=== PATIENT | female | born 1990 | race Hispanic/Latino ===

== ENCOUNTER 2018-09-20 14:27 | Inpatient (IN) | payer MEDICAID ==
[2018-09-20] MEDS ORDERED: NACL 0.9% 1000 ML 1,000 ML IV ONE ×2 (15:18)
[2018-09-20] MEDS ORDERED: HumuLIN R IV ONE ×2 (15:18→18:45)
[2018-09-20] MEDS ORDERED: ZOFRAN IV ONE (15:35)
--- NOTE | 2018-09-20 15:39 | Emergency Department Report ---
ED Chest Pain HPI - General Chief Complaint: Chest Pain Stated Complaint: CHEST PAIN Time Seen by Provider: 09/20/18 15:21 Source: patient, EMS Mode of arrival: Stretcher Limitations: No Limitations - History of Present Illness Initial Comments: 27-year-old female with a past medical history of insulin-dependent diabetes, Yates's disease, stage II kidney disease, and hypothyroidism presents to the Hospital complaining of chest pain started while walking today, uncontrolled glucose level, and vomiting. Patient complains of sharp pain to the left upper chest that shoots across to the right side and down her right arm. Mild shortness of breath reported. Pain rated 6/10 in intensity without aggravating or alleviating factors. Patient denies calf tenderness or leg edema. Patient states that for the past week her glucose has been uncontrolled. She takes Humalog R sliding-scale as needed but on average takes it only twice a day. She does not take any long-acting insulin. For the past 2-43 days she's had nausea, vomiting, and diarrhea with decreased by mouth tolerance. No fever or dysuria. History of DKA reported. Patient recently moved to the [facility] and has her first scheduled PMD appointment for September 29. Severity scale (0 -10): 6 - Related Data Allergies Allergy/AdvReac Type Severity Reaction Status Date / Time Penicillins Allergy Angioedema Verified 09/20/18 15:10 vortioxetine Allergy Unknown Verified 09/20/18 15:10 [From Trintellix] ziprasidone [From Geodon] Allergy Angioedema Verified 09/20/18 15:10 vancomycin AdvReac Itching Verified 09/20/18 15:10 Heart Score - HEART Score History: Slightly suspicious EKG: Non-specific Age: < 45 Risk factors: 1-2 risk factors Troponin: < normal limit HEART Score: 2 ED Review of Systems ROS: Stated complaint: CHEST PAIN Other details as noted in HPI Comment: All other systems reviewed and negative ED Past Medical Hx - Past Medical History Hx Diabetes: Yes Hx Renal Disease: Yes (stage II kidney disease) Additional medical history: hypotension, hypothyroidism, Yates's disease - Surgical History Past Surgical History?: Yes Hx Cholecystectomy: Yes Hx Appendectomy: Yes Additional Surgical History: 4 - Social History Smoking Status: Never Smoker Substance Use Type: None ED Physical Exam - General Limitations: No Limitations - Other Other exam information: General: No limitations, patient is alert in no acute distress Head exam: Atraumatic, normocephalic Eyes exam: Normal appearance, pupils equal reactive to light, extraocular movements intact ENT: Moist mucous membrane, normal oropharynx Neck exam: Normal inspection, full range of motion, no meningismus nontender Respiratory exam: Clear to auscultation bilateral, no wheezes, rales, crackles, port to chest wall Cardiovascular: Normal rate and rhythm, normal heart sounds, chest wall nontender Abdomen: Soft, nondistended, and nontender, with normal bowel sounds, no rebound, or guarding Extremity: Full range of motion normal inspection no deformity, no calf tenderness or edema Back: Normal Inspection, full range of motion, no tenderness Neurologic: Alert, oriented x3, cranial nerves intact, no motor or sensory deficit Psychiatric: normal affect, normal mood Skin: Warm, dry, intact, ED Course Vital Signs 09/20/18 09/20/18 09/20/18 15:00 15:10 15:45 Temperature 98.3 F Pulse Rate 89 93 H 86 Respiratory 19 16 13 Rate Blood Pressure 99/67 97/64 98/62 O2 Sat by Pulse 95 97 98 Oximetry 09/20/18 09/20/18 09/20/18 16:00 16:47 17:00 Temperature Pulse Rate 86 82 79 Respiratory 19 17 16 Rate Blood Pressure 103/72 110/69 98/67 O2 Sat by Pulse 94 Oximetry 09/20/18 09/20/18 09/20/18 17:15 17:30 17:33 Temperature Pulse Rate 80 84 Respiratory 12 12 16 Rate Blood Pressure 103/72 102/70 O2 Sat by Pulse Oximetry 09/20/18 09/20/18 09/20/18 17:45 18:15 18:30 Temperature Pulse Rate 87 84 87 Respiratory 14 17 12 Rate Blood Pressure 98/67 91/59 108/82 O2 Sat by Pulse Oximetry 09/20/18 09/20/18 09/20/18 18:45 19:00 19:15 Temperature Pulse Rate 88 87 87 Respiratory 11 L 11 L 12 Rate Blood Pressure 91/59 110/78 110/78 O2 Sat by Pulse 100 100 100 Oximetry 09/20/18 19:30 Temperature Pulse Rate 88 Respiratory 14 Rate Blood Pressure 105/77 O2 Sat by Pulse Oximetry DAVID score - David Score Age > 65: (0) No Aspirin use within the Past 7 Days: (0) No 3 or more CAD Risk Factors: (0) No 2 or more Angina events in past 24 hrs: (0) No Known CAD with more than 50% Stenosis: (0) No Elevated Cardiac Markers: (0) No ST Deviation Greater than 0.5mm: (0) No DAVID Score: 0 ED Medical Decision Making - Lab Data Result diagrams: 09/20/18 16:44 09/20/18 16:44 Lab Results 09/20/18 09/20/18 09/20/18 Range/Units 14:58 15:16 16:44 WBC 6.5 (4.5-11.0) K/mm3 RBC 3.23 L (3.65-5.03) M/mm3 Hgb 9.0 L (10.1-14.3) gm/dl Hct 27.8 L (30.3-42.9) % MCV 86 (79-97) fl MCH 28 (28-32) pg MCHC 32 (30-34) % RDW 17.3 H (13.2-15.2) % Plt Count 279 (140-440) K/mm3 Lymph % (Auto) 38.2 H (13.4-35.0) % [place] % (Auto) 5.1 (0.0-7.3) % Eos % (Auto) 2.5 (0.0-4.3) % Baso % (Auto) 0.9 (0.0-1.8) % Lymph # 2.5 (1.2-5.4) K/mm3 [place] # 0.3 (0.0-0.8) K/mm3 Eos # 0.2 (0.0-0.4) K/mm3 Baso # 0.1 (0.0-0.1) K/mm3 Seg Neutrophils % 53.3 (40.0-70.0) % Seg Neutrophils # 3.5 (1.8-7.7) K/mm3 PT (12.2-14.9) Sec. INR (0.87-1.13) VBG pH (7.320-7.420) Sodium (137-145) mmol/L Potassium (3.6-5.0) mmol/L Chloride (98-107) mmol/L Carbon Dioxide (22-30) mmol/L Anion Gap mmol/L BUN (7-17) mg/dL Creatinine (0.7-1.2) mg/dL Estimated GFR ml/min BUN/Creatinine Ratio % Glucose (65-100) mg/dL POC Glucose 476 H (70-105) Calcium (8.4-10.2) mg/dL Total Bilirubin (0.1-1.2) mg/dL AST (5-40) units/L ALT (7-56) units/L Alkaline Phosphatase (35-129) units/L Troponin T (0.00-0.029) ng/mL Total Protein (6.3-8.2) g/dL Albumin (3.9-5) g/dL Albumin/Globulin Ratio % TSH (0.270-4.200) mlU/mL Free T4 (0.76-1.46) ng/dL HCG, Qual (Negative) Urine Color Yellow (Yellow) Urine Turbidity Slightly-cloudy (Clear) Urine pH 5.0 (5.0-7.0) Ur Specific [place] 1.022 (1.003-1.030) Urine Protein <15 mg/dl (Negative) mg/dL Urine Glucose (UA) >=500 (Negative) mg/dL Urine Ketones Tr (Negative) mg/dL Urine Blood Neg (Negative) Urine Nitrite Neg (Negative) Urine Bilirubin Neg (Negative) Urine Urobilinogen < 2.0 (<2.0) mg/dL Ur Leukocyte Esterase Lg (Negative) Urine WBC (Auto) 32.0 H (0.0-6.0) /HPF Urine RBC (Auto) 5.0 (0.0-6.0) /HPF U Epithel Cells (Auto) 4.0 (0-13.0) /HPF Urine Bacteria (Auto) 1+ (Negative) /HPF Urine Mucus Few /HPF 09/20/18 09/20/18 09/20/18 Range/Units 16:44 16:44 16:44 WBC (4.5-11.0) K/mm3 RBC (3.65-5.03) M/mm3 Hgb (10.1-14.3) gm/dl Hct (30.3-42.9) % MCV (79-97) fl MCH (28-32) pg MCHC (30-34) % RDW (13.2-15.2) % Plt Count (140-440) K/mm3 Lymph % (Auto) (13.4-35.0) % [place] % (Auto) (0.0-7.3) % Eos % (Auto) (0.0-4.3) % Baso % (Auto) (0.0-1.8) % Lymph # (1.2-5.4) K/mm3 [place] # (0.0-0.8) K/mm3 Eos # (0.0-0.4) K/mm3 Baso # (0.0-0.1) K/mm3 Seg Neutrophils % (40.0-70.0) % Seg Neutrophils # (1.8-7.7) K/mm3 PT 12.3 (12.2-14.9) Sec. INR 0.87 (0.87-1.13) VBG pH (7.320-7.420) Sodium 126 L (137-145) mmol/L Potassium 4.7 (3.6-5.0) mmol/L Chloride 92.1 L (98-107) mmol/L Carbon Dioxide 22 (22-30) mmol/L Anion Gap 17 mmol/L BUN 21 H (7-17) mg/dL Creatinine 1.2 (0.7-1.2) mg/dL Estimated GFR > 60 ml/min BUN/Creatinine Ratio 18 % Glucose 633 H* (65-100) mg/dL POC Glucose (70-105) Calcium 7.8 L (8.4-10.2) mg/dL Total Bilirubin 0.30 (0.1-1.2) mg/dL AST 95 H (5-40) units/L ALT 75 H (7-56) units/L Alkaline Phosphatase 165 H (35-129) units/L Troponin T < 0.010 (0.00-0.029) ng/mL Total Protein 5.8 L (6.3-8.2) g/dL Albumin 3.4 L (3.9-5) g/dL Albumin/Globulin Ratio 1.4 % TSH (0.270-4.200) mlU/mL Free T4 (0.76-1.46) ng/dL HCG, Qual Negative (Negative) Urine Color (Yellow) Urine Turbidity (Clear) Urine pH (5.0-7.0) Ur Specific [place] (1.003-1.030) Urine Protein (Negative) mg/dL Urine Glucose (UA) (Negative) mg/dL Urine Ketones (Negative) mg/dL Urine Blood (Negative) Urine Nitrite (Negative) Urine Bilirubin (Negative) Urine Urobilinogen (<2.0) mg/dL Ur Leukocyte Esterase (Negative) Urine WBC (Auto) (0.0-6.0) /HPF Urine RBC (Auto) (0.0-6.0) /HPF U Epithel Cells (Auto) (0-13.0) /HPF Urine Bacteria (Auto) (Negative) /HPF Urine Mucus /HPF 09/20/18 09/20/18 09/20/18 Range/Units 16:44 16:44 18:18 WBC (4.5-11.0) K/mm3 RBC (3.65-5.03) M/mm3 Hgb (10.1-14.3) gm/dl Hct (30.3-42.9) % MCV (79-97) fl MCH (28-32) pg MCHC (30-34) % RDW (13.2-15.2) % Plt Count (140-440) K/mm3 Lymph % (Auto) (13.4-35.0) % [place] % (Auto) (0.0-7.3) % Eos % (Auto) (0.0-4.3) % Baso % (Auto) (0.0-1.8) % Lymph # (1.2-5.4) K/mm3 [place] # (0.0-0.8) K/mm3 Eos # (0.0-0.4) K/mm3 Baso # (0.0-0.1) K/mm3 Seg Neutrophils % (40.0-70.0) % Seg Neutrophils # (1.8-7.7) K/mm3 PT (12.2-14.9) Sec. INR (0.87-1.13) VBG pH 7.316 L (7.320-7.420) Sodium (137-145) mmol/L Potassium (3.6-5.0) mmol/L Chloride (98-107) mmol/L Carbon Dioxide (22-30) mmol/L Anion Gap mmol/L BUN (7-17) mg/dL Creatinine (0.7-1.2) mg/dL Estimated GFR ml/min BUN/Creatinine Ratio % Glucose (65-100) mg/dL POC Glucose (70-105) Calcium (8.4-10.2) mg/dL Total Bilirubin (0.1-1.2) mg/dL AST (5-40) units/L ALT (7-56) units/L Alkaline Phosphatase (35-129) units/L Troponin T < 0.010 (0.00-0.029) ng/mL Total Protein (6.3-8.2) g/dL Albumin (3.9-5) g/dL Albumin/Globulin Ratio % TSH 3.140 (0.270-4.200) mlU/mL Free T4 0.66 L (0.76-1.46) ng/dL HCG, Qual (Negative) Urine Color (Yellow) Urine Turbidity (Clear) Urine pH (5.0-7.0) Ur Specific [place] (1.003-1.030) Urine Protein (Negative) mg/dL Urine Glucose (UA) (Negative) mg/dL Urine Ketones (Negative) mg/dL Urine Blood (Negative) Urine Nitrite (Negative) Urine Bilirubin (Negative) Urine Urobilinogen (<2.0) mg/dL Ur Leukocyte Esterase (Negative) Urine WBC (Auto) (0.0-6.0) /HPF Urine RBC (Auto) (0.0-6.0) /HPF U Epithel Cells (Auto) (0-13.0) /HPF Urine Bacteria (Auto) (Negative) /HPF Urine Mucus /HPF 09/20/18 Range/Units 18:45 WBC (4.5-11.0) K/mm3 RBC (3.65-5.03) M/mm3 Hgb (10.1-14.3) gm/dl Hct (30.3-42.9) % MCV (79-97) fl MCH (28-32) pg MCHC (30-34) % RDW (13.2-15.2) % Plt Count (140-440) K/mm3 Lymph % (Auto) (13.4-35.0) % [place] % (Auto) (0.0-7.3) % Eos % (Auto) (0.0-4.3) % Baso % (Auto) (0.0-1.8) % Lymph # (1.2-5.4) K/mm3 [place] # (0.0-0.8) K/mm3 Eos # (0.0-0.4) K/mm3 Baso # (0.0-0.1) K/mm3 Seg Neutrophils % (40.0-70.0) % Seg Neutrophils # (1.8-7.7) K/mm3 PT (12.2-14.9) Sec. INR (0.87-1.13) VBG pH (7.320-7.420) Sodium (137-145) mmol/L Potassium (3.6-5.0) mmol/L Chloride (98-107) mmol/L Carbon Dioxide (22-30) mmol/L Anion Gap mmol/L BUN (7-17) mg/dL Creatinine (0.7-1.2) mg/dL Estimated GFR ml/min BUN/Creatinine Ratio % Glucose (65-100) mg/dL POC Glucose 430 H (70-105) Calcium (8.4-10.2) mg/dL Total Bilirubin (0.1-1.2) mg/dL AST (5-40) units/L ALT (7-56) units/L Alkaline Phosphatase (35-129) units/L Troponin T (0.00-0.029) ng/mL Total Protein (6.3-8.2) g/dL Albumin (3.9-5) g/dL Albumin/Globulin Ratio % TSH (0.270-4.200) mlU/mL Free T4 (0.76-1.46) ng/dL HCG, Qual (Negative) Urine Color (Yellow) Urine Turbidity (Clear) Urine pH (5.0-7.0) Ur Specific [place] (1.003-1.030) Urine Protein (Negative) mg/dL Urine Glucose (UA) (Negative) mg/dL Urine Ketones (Negative) mg/dL Urine Blood (Negative) Urine Nitrite (Negative) Urine Bilirubin (Negative) Urine Urobilinogen (<2.0) mg/dL Ur Leukocyte Esterase (Negative) Urine WBC (Auto) (0.0-6.0) /HPF Urine RBC (Auto) (0.0-6.0) /HPF U Epithel Cells (Auto) (0-13.0) /HPF Urine Bacteria (Auto) (Negative) /HPF Urine Mucus /HPF - EKG Data -: EKG Interpreted by Me EKG shows normal: sinus rhythm, axis (qrs 27), QRS complexes (qrsd 84), ST-T waves (no stemi/t inv) Rate: normal (86) - Radiology Data Radiology results: image reviewed - Medical Decision Making Patient presented to the hospital with uncontrolled diabetes, chest pain, and findings of UTI. Reports history of Yates's disease and therefore will be admitted to the hospital for further treatment. She was treated with insulin, normal saline, [place], and Levaquin. Hospitalist informed for admission - Differential Diagnosis DKA, hyperglycemia, SD, unstable angina, PE, infection Critical Care Time: No Critical care attestation.: If time is entered above; I have spent that time in minutes in the direct care of this critically ill patient, excluding procedure time. ED Disposition Clinical Impression: Chest pain, Insulin dependent diabetes mellitus, Hyperglycemia, UTI (urinary tract infection), Anemia Disposition: OP ADMIT IP TO THIS HOSP Is pt being admited?: Yes Condition: Stable Time of Disposition: 19:27 (DR Rg/hosp)
[2018-09-20] MEDS ORDERED: NORCO 5/325 PO ONE (16:54)
[2018-09-20 16:55] LABS: Basophils # (Auto) 0.1 K/mm3 (0.0-0.1); Basophils % (Auto) 0.9 % (0.0-1.8); Eosinophils # (Auto) 0.2 K/mm3 (0.0-0.4); Eosinophils % (Auto) 2.5 % (0.0-4.3); Hematocrit 27.8 % (30.3-42.9); Lymphocytes # (Auto) 2.5 K/mm3 (1.2-5.4); Lymphocytes % (Auto) 38.2 % (13.4-35.0); Mean Corpuscular HGB Conc 32 % (30-34); Mean Corpuscular Volume 86 fl (79-97); Monocytes # (Auto) 0.3 K/mm3 (0.0-0.8); Monocytes % (Auto) 5.1 % (0.0-7.3); Platelet Count 279 K/mm3 (140-440); Red Blood Count 3.23 M/mm3 (3.65-5.03); Red Cell Distribution Width 17.3 % (13.2-15.2)
[2018-09-20 17:05] LABS: INR 0.87 (0.87-1.13)
[2018-09-20 17:09] LABS: Bacteria,Urine 1+ /HPF (Negative); Bilirubin,Urine NEG (Negative); Blood,Urine NEG (Negative); Color,Urine Yellow (Yellow); Mucus,Urine FEW /HPF; Protein,Urine <15 mg/dL mg/dL (Negative); Urobilinogen,Urine < 2.0 mg/dL (<2.0)
[2018-09-20 17:20] LABS: Alanine Aminotransferase 75 units/L (7-56); Albumin 3.4 g/dL (3.9-5); BUN/Creatinine Ratio 18; Blood Urea Nitrogen 21 mg/dL (7-17); Calcium 7.8 mg/dL (8.4-10.2); Hemolysis Index 3
[2018-09-20 17:27] LABS: Free T4 (Free Thyroxine) 0.66 ng/dL (0.76-1.46)
[2018-09-20] MEDS ORDERED: HumuLIN R ONE (17:30)
[2018-09-20] MEDS ORDERED: LEVAQUIN 750MG/150ML 750 MG/150 ML BAG IV ONE (17:47)
--- NOTE | 2018-09-20 19:22 | History and Physical Report ---
History of Present Illness Chief complaint: My chest hurts, and i just dont feel that good History of present illness: 27 YO Female with DM, Addisons Disease, CKD currently resolved, Hypothyroidism, presents to ED for evaluation. PT states that she experienced sudden onset of pain in her chest while walking today. Pt states that pain was 6/10, worsened with exertion, relieved with rest, sharp, crushing in nature, radiates across her chest and into her right arm, associated with shortness of breath , nausea, multiple episodes of vomiting and diaphoresis. Pt acknowledges decreased exercise tolerance. EMS notified and upon arrival the patient was found to be in distress. Pt transported to [facility]. Pt seen and evaluated in ED and found to have Angina, UTI, Uncontrolled DM, and Anemia of Chronic disease. Pt admitted to telemetry and initiated on chest pain protocol as well as IV antibiotic therapy. Cardiology consulted in ED. No previous admissions at [facility]. No medication available to reconcile at time of admission. Past History Past Medical History: diabetes, hypothyroidism, other (Addisons disease) Social history: single. denies: smoking, alcohol abuse, prescription drug abuse Family history: diabetes, hypertension Medications and Allergies Allergies Allergy/AdvReac Type Severity Reaction Status Date / Time Penicillins Allergy Angioedema Verified 09/20/18 15:10 vortioxetine Allergy Unknown Verified 09/20/18 15:10 [From Trintellix] ziprasidone [From Geodon] Allergy Angioedema Verified 09/20/18 15:10 vancomycin AdvReac Itching Verified 09/20/18 15:10 Review of Systems Constitutional: no weight loss, no weight gain, no fever, no chills Ears, nose, mouth and throat: no ear pain, no ear discharge, no tinnitis, no decreased hearing, no nose pain, no nasal congestion Breasts: no change in shape, no swelling, no mass Cardiovascular: chest pain, shortness of breath, dyspnea on exertion, decreased exercise tolerance, no palpitations, no rapid/irregular heart beat, no syncope, no lightheadedness Respiratory: no cough, no cough with sputum, no excessive sputum, no hemoptysis, no shortness of breath Gastrointestinal: nausea, vomiting Genitourinary Female: no dysmenorrhea, no pelvic pain, no flank pain, no menorrhagia, no urinary frequency Rectal: no pain, no incontinence, no bleeding Musculoskeletal: no neck stiffness, no neck pain, no shooting arm pain, no arm numbness/tingling, no low back pain Integumentary: no rash, no pruritis, no redness, no sores, no wounds Neurological: no paralysis, no weakness, no parathesias, no numbness, no tingling Psychiatric: no anxiety, no memory loss, no change in sleep habits, no sleep disturbances, no insomnia Endocrine: no cold intolerance, no heat intolerance, no excessive thirst, no polydipsia, no polyuria Hematologic/Lymphatic: no easy bruising, no easy bleeding, no lymphadenopathy, no lymphedema Allergic/Immunologic: no urticaria, no allergic rhinitis, no persistent infect ions, no anaphylaxis, no angioedema Exam - Constitutional Vitals: Temp Pulse Resp BP Pulse Ox 98.3 F 88 11 L 91/59 100 09/20/18 15:10 09/20/18 18:45 09/20/18 18:45 09/20/18 18:45 09/20/18 18:45 General appearance: Present: mild distress - EENT Eyes: Present: PERRL ENT: hearing intact, clear oral mucosa - Neck Neck: Present: supple, normal ROM - Respiratory Respiratory effort: normal Respiratory: bilateral: CTA - Cardiovascular Heart Sounds: Present: S1 & S2. Absent: rub, click - Extremities Extremities: pulses symmetrical, No edema Peripheral Pulses: within normal limits - Abdominal General gastrointestinal: Present: soft, non-tender, non-distended, normal bowel sounds Female genitourinary: Present: normal - Integumentary Integumentary: Present: clear, warm, dry - Musculoskeletal Musculoskeletal: gait normal, strength equal bilaterally - Psychiatric Psychiatric: appropriate mood/affect, intact judgment & insight - Neurologic Neurologic: CNII-XII intact, moves all extremities Results - Labs CBC & Chem 7: 09/20/18 16:44 09/20/18 16:44 Labs: Abnormal lab results 09/20/18 09/20/18 09/20/18 Range/Units 14:58 15:16 16:44 RBC 3.23 L (3.65-5.03) M/mm3 Hgb 9.0 L (10.1-14.3) gm/dl Hct 27.8 L (30.3-42.9) % RDW 17.3 H (13.2-15.2) % Lymph % (Auto) 38.2 H (13.4-35.0) % VBG pH (7.320-7.420) Sodium (137-145) mmol/L Chloride (98-107) mmol/L BUN (7-17) mg/dL Glucose (65-100) mg/dL POC Glucose 476 H (70-105) Calcium (8.4-10.2) mg/dL AST (5-40) units/L ALT (7-56) units/L Alkaline Phosphatase (35-129) units/L Total Protein (6.3-8.2) g/dL Albumin (3.9-5) g/dL Free T4 (0.76-1.46) ng/dL Urine WBC (Auto) 32.0 H (0.0-6.0) /HPF 09/20/18 09/20/18 09/20/18 Range/Units 16:44 16:44 16:44 RBC (3.65-5.03) M/mm3 Hgb (10.1-14.3) gm/dl Hct (30.3-42.9) % RDW (13.2-15.2) % Lymph % (Auto) (13.4-35.0) % VBG pH 7.316 L (7.320-7.420) Sodium 126 L (137-145) mmol/L Chloride 92.1 L (98-107) mmol/L BUN 21 H (7-17) mg/dL Glucose 633 H* (65-100) mg/dL POC Glucose (70-105) Calcium 7.8 L (8.4-10.2) mg/dL AST 95 H (5-40) units/L ALT 75 H (7-56) units/L Alkaline Phosphatase 165 H (35-129) units/L Total Protein 5.8 L (6.3-8.2) g/dL Albumin 3.4 L (3.9-5) g/dL Free T4 0.66 L (0.76-1.46) ng/dL Urine WBC (Auto) (0.0-6.0) /HPF 09/20/18 Range/Units 18:45 RBC (3.65-5.03) M/mm3 Hgb (10.1-14.3) gm/dl Hct (30.3-42.9) % RDW (13.2-15.2) % Lymph % (Auto) (13.4-35.0) % VBG pH (7.320-7.420) Sodium (137-145) mmol/L Chloride (98-107) mmol/L BUN (7-17) mg/dL Glucose (65-100) mg/dL POC Glucose 430 H (70-105) Calcium (8.4-10.2) mg/dL AST (5-40) units/L ALT (7-56) units/L Alkaline Phosphatase (35-129) units/L Total Protein (6.3-8.2) g/dL Albumin (3.9-5) g/dL Free T4 (0.76-1.46) ng/dL Urine WBC (Auto) (0.0-6.0) /HPF Assessment and Plan - Patient Problems (1) Angina at rest Current Visit: Yes Status: Acute Plan to address problem: Admit to telemetry, Serial cardiac enzymes, ekg, telemetry, stress test, echo, cardiology consulted in ED, bnp, morphine, supplemental oxygen, nitro, aspirin, (2) UTI (urinary tract infection) Current Visit: Yes Status: Acute Qualifiers: Encounter type: initial encounter Plan to address problem: IV antibiotic therapy, Urinalysis, CBC, CMP, (3) Hyponatremia syndrome Current Visit: Yes Status: Acute Plan to address problem: IVF resuscitation, repeat bmp in am, seizure precautions, aspiration precautions, neuro checks. (4) Diabetes Current Visit: Yes Status: Acute Plan to address problem: ADA diet, insulin, accu check, IVF resuscitation therapy. (5) Anemia, chronic disease Current Visit: Yes Status: Acute Plan to address problem: supportive care, repeat cbc in am, No transfusion at this time. Hgb is 9. (6) Dante's disease Current Visit: Yes Status: Acute Plan to address problem: Supportive care, Outpatient endocrinology F/U care. (7) Hypocalcemia syndrome Current Visit: Yes Status: Acute Plan to address problem: Serum calcium level, Ionized calcium level ordered and in pending at time of admission. (8) Elevated LFTs Current Visit: Yes Status: Acute Plan to address problem: UDS, Blood alcolol level, hepatitis panel. (9) DVT prophylaxis Current Visit: Yes Status: Acute Plan to address problem: SCD to BLE while in bed, prophylactic lovenox
[2018-09-20] MEDS ORDERED: SODIUM CHLORIDE FLUSH SYRINGE 10 ML IV PRN ×2 (19:29)
[2018-09-20] MEDS ORDERED: NITROSTAT SL PRN (19:29)
[2018-09-20] MEDS ORDERED: TYLENOL PO PRN (19:29)
[2018-09-20] MEDS ORDERED: MORPHINE IV PRN (19:29)
[2018-09-20] MEDS ORDERED: PROVENTIL IH PRN (19:29)
[2018-09-20] MEDS ORDERED: BABY ASPIRIN PO STA (19:30)
[2018-09-20 20:05] LABS: Chol/HDL Ratio 5.65 %
--- NOTE | 2018-09-20 20:17 | XRay Report ---
PROCEDURE: XR CHEST 1V AP HISTORY: cp FINDINGS: Single frontal view of the chest was acquired. The heart is normal in size. The lungs appea r clear. The pleura and mediastinum are within normal limits. IMPRESSION: No active disease in the chest This document is electronically signed by Ramiro Hernandez MD., September 20 2018 08:16:03 PM ET
[2018-09-20] MEDS ORDERED: NACL 0.9% 1000 ML 1,000 ML IV SCH (21:00)
[2018-09-20] MEDS: SODIUM CHLORIDE FLUSH SYRINGE 10 ML IV SCH (22:05)
[2018-09-20] MEDS: PEPCID PO SCH (22:05)
[2018-09-20] MEDS: LOVENOX SUB-Q SCH ×2 (22:05→23:10)
[2018-09-20] MEDS: HumaLOG SUB-Q SCH (22:06)
[2018-09-20 23:30] LABS: Amphetamine Screen,Urine PRESUMPTIVE NEGATIVE; Benzodiazepines Screen,Urine PRESUMPTIVE NEGATIVE; Cannabinoid Screen,Urine PRESUMPTIVE NEGATIVE; Cocaine Screen,Urine PRESUMPTIVE NEGATIVE; Methadone Screen,Urine PRESUMPTIVE NEGATIVE; Opiate Screen,Urine PRESUMPTIVE NEGATIVE
[2018-09-20 23:50] LABS: Hepatitis B Surface Antigen Non-Reactive (Negative); Hepatitis C Virus Antibody Non-Reactive (NonReactive)
[2018-09-21] MEDS: ZOFRAN IV PRN ×2 (01:58→17:59)
[2018-09-21 07:19] LABS: Calcium 7.5 mg/dL (8.4-10.2)
[2018-09-21] MEDS: HumaLOG SUB-Q SCH ×4 (08:30→21:19)
[2018-09-21] MEDS: PEPCID PO SCH ×2 (09:02→21:18)
[2018-09-21] MEDS: SODIUM CHLORIDE FLUSH SYRINGE 10 ML IV SCH ×2 (09:03→21:18)
--- NOTE | 2018-09-21 12:44 | Consultation ---
History of Present Illness Consult date: 09/21/18 Consult reason: chest pain History of present illness: 27 year old white female with a history of type 1 diabetes mellitus hypothyroidism and [place]'s disease presenting with sudden onset chest pain. At the time of my evaluation chest pain has resolved. Past History Past Medical History: diabetes, hypothyroidism, other (Addisons disease) Social history: single. denies: smoking, alcohol abuse, prescription drug abuse Family history: diabetes, hypertension Medications and Allergies Allergies Allergy/AdvReac Type Severity Reaction Status Date / Time Penicillins Allergy Angioedema Verified 09/20/18 15:10 vortioxetine Allergy Unknown Verified 09/20/18 15:10 [From Trintellix] ziprasidone [From Geodon] Allergy Angioedema Verified 09/20/18 15:10 vancomycin AdvReac Itching Verified 09/20/18 15:10 Active Meds: Active Medications Acetaminophen (Tylenol) 650 mg PO Q4H PRN PRN Reason: Pain MILD(1-3)/Fever >100.5/STEWARD Albuterol (Proventil) 2.5 mg IH Q4H PRN PRN Reason: Shortness Of Breath Dextrose (D50w (25gm) Syringe) 50 ml IV PRN PRN PRN Reason: Hypoglycemia Enoxaparin Sodium (Lovenox) 40 mg SUB-Q QDAY@2200 [facility] Last Admin: 09/20/18 23:10 Dose: Not Given Documented by: Famotidine (Pepcid) 20 mg PO BID [facility] Last Admin: 09/21/18 09:02 Dose: 20 mg Documented by: Levofloxacin/Dextrose (Levaquin 750mg/150ml) 750 mg in 150 mls @ 100 mls/hr IV Q24H [facility]; Protocol Sodium Chloride (Nacl 0.9% 1000 Ml) 1,000 mls @ 75 mls/hr IV DIRECT [facility] Last Admin: 09/20/18 22:06 Dose: 75 mls/hr Documented by: Insulin Human Lispro (Humalog) 0 unit SUB-Q ACHS [facility]; Protocol Last Admin: 09/21/18 08:30 Dose: 6 unit Documented by: Morphine Sulfate (Morphine) 2 mg IV Q4H PRN PRN Reason: Pain, Moderate (4-6) Nitroglycerin (Nitrostat) 0.4 mg SL Q5M PRN PRN Reason: Chest Pain Ondansetron HCl (Zofran) 4 mg IV Q8H PRN PRN Reason: Nausea And Vomiting Last Admin: 09/21/18 01:58 Dose: 4 mg Documented by: Sodium Chloride (Sodium Chloride Flush Syringe 10 Ml) 10 ml IV BID [facility] Last Admin: 09/21/18 09:03 Dose: Not Given Documented by: Sodium Chloride (Sodium Chloride Flush Syringe 10 Ml) 10 ml IV PRN PRN PRN Reason: LINE FLUSH Review of Systems All systems: negative (chest pain) Physical Examination Vital Signs Pulse Resp BP Pulse Ox 89 19 99/67 95 09/20/18 15:00 09/20/18 15:00 09/20/18 15:00 09/20/18 15:00 General appearance: no acute distress, obese HEENT: Positive: PERRL, Normocephaly, Mucus Membranes Moist Neck: Positive: neck supple, trachea midline. Negative: JVD/HJR Cardiac: Positive: Reg Rate and Rhythm, Regular Rate, S1/S2, PMI, Laterally Displaced. Negative: S3, S4 Lungs: Positive: Normal Breath Sounds, No Wheeze, Rales, Rhonchi Abdomen: Positive: Unremarkable, Active Bowel Sounds Extremities: Absent: edema Results 09/20/18 16:44 09/21/18 05:41 Cardiac Enzymes 09/20/18 Range/Units 16:44 AST 95 H (5-40) units/L Coagulation 09/20/18 Range/Units 16:44 PT 12.3 (12.2-14.9) Sec. INR 0.87 (0.87-1.13) Lipids 09/20/18 Range/Units 16:44 Triglycerides 327 H (2-149) mg/dL Cholesterol 215 H (50-199) mg/dL HDL Cholesterol 38 L (40-59) mg/dL Cholesterol/HDL Ratio 5.65 % CBC 09/20/18 Range/Units 16:44 WBC 6.5 (4.5-11.0) K/mm3 RBC 3.23 L (3.65-5.03) M/mm3 Hgb 9.0 L (10.1-14.3) gm/dl Hct 27.8 L (30.3-42.9) % Plt Count 279 (140-440) K/mm3 Lymph # 2.5 (1.2-5.4) K/mm3 [place] # 0.3 (0.0-0.8) K/mm3 Eos # 0.2 (0.0-0.4) K/mm3 Baso # 0.1 (0.0-0.1) K/mm3 Comprehensive Metabolic Panel 09/20/18 09/21/18 Range/Units 16:44 05:41 Sodium 126 L 136 L D (137-145) mmol/L Potassium 4.7 4.6 (3.6-5.0) mmol/L Chloride 92.1 L 104.4 (98-107) mmol/L Carbon Dioxide 22 23 (22-30) mmol/L BUN 21 H 17 (7-17) mg/dL Creatinine 1.2 1.4 H (0.7-1.2) mg/dL Glucose 633 H* 300 H (65-100) mg/dL Calcium 7.8 L 7.5 L (8.4-10.2) mg/dL AST 95 H (5-40) units/L ALT 75 H (7-56) units/L Alkaline Phosphatase 165 H (35-129) units/L Total Protein 5.8 L (6.3-8.2) g/dL Albumin 3.4 L (3.9-5) g/dL - EKG Interpretation EKG: sinus rhythm EKG interpretations - Telemetry EKG Rhythm: Sinus Rhythm - EKG Sinus rhythms and dysrhythmias: sinus rhythm Repolarization changes or abnormalities: nonspecific abnormality, ST segment, and/or T wave Assessment and Plan 1. Chest pain rule out underlying ischemic coronary artery disease 2. Type 1 diabetes mellitus 3. History of eye distance disease 4. Hypo-thyroidism Plan. Currently stable chest pain free obtained serial cardiac isoenzymes. Check echocardiogram to asssess global and regional LV function. Stress MPI to assess for the presence of ischemic coronary artery disease prior to discharge
--- NOTE | 2018-09-21 14:04 | Progress Note ---
Assessment and Plan / Chest pain, likely atypical Monitor at telemetry, stress test tomorrow, follow 2d echo, cardiology consulted in ED, cont morphine as needed, supplemental oxygen, nitro, aspirin, /UTI (urinary tract infection) cont IV antibiotic therapy, / Hyponatremia due to hypoglycemia IVF resuscitation, repeat bmp in am, / Diabetes, uncontrolled ADA diet, insulin, accu check, IVF resuscitation therapy. /Anemia, chronic disease supportive care, repeat cbc in am, No transfusion at this time. Hgb is 9. / Dante's disease Supportive care, Outpatient endocrinology F/U care. / Elevated LFTs UDS, Blood alcolol level, hepatitis panel. / DVT prophylaxis SCD to BLE while in bed, prophylactic lovenox Subjective Date of service: 09/21/18 Interval history: Patient seen and examined c/o intermittent chest pain BG still ~300 tolerating diet Objective - Constitutional Vitals: Vital Signs - 12hr 09/21/18 09/21/18 09/21/18 04:14 08:16 10:00 Temperature 98.6 F 98.5 F Pulse Rate 85 85 97 H Respiratory 14 20 16 Rate Blood Pressure 106/72 102/72 O2 Sat by Pulse 97 98 100 Oximetry 09/21/18 11:53 Temperature 98.3 F Pulse Rate 92 H Respiratory 20 Rate Blood Pressure 96/65 O2 Sat by Pulse 98 Oximetry General appearance: Present: no acute distress, well-nourished - EENT Eyes: PERRL, EOM intact ENT: hearing intact, clear oral mucosa Ears: bilateral: normal - Neck Neck: supple, normal ROM - Respiratory Respiratory effort: normal Respiratory: bilateral: CTA - Cardiovascular Rhythm: regular Heart Sounds: Present: S1 & S2. Absent: gallop, rub Extremities: pulses intact, No edema, normal color, Full ROM - Gastrointestinal General gastrointestinal: Present: soft, non-tender, non-distended, normal bowel sounds - Integumentary Integumentary: clear, warm, dry - Musculoskeletal Musculoskeletal: 1, strength equal bilaterally - Neurologic Neurologic: moves all extremities - Psychiatric Psychiatric: memory intact, appropriate mood/affect, intact judgment & insight - Labs CBC & Chem 7: 09/20/18 16:44 09/22/18 Unknown Labs: Abnormal lab results 09/20/18 09/20/18 09/20/18 Range/Units 14:58 15:16 16:44 RBC 3.23 L (3.65-5.03) M/mm3 Hgb 9.0 L (10.1-14.3) gm/dl Hct 27.8 L (30.3-42.9) % RDW 17.3 H (13.2-15.2) % Lymph % (Auto) 38.2 H (13.4-35.0) % VBG pH (7.320-7.420) Sodium (137-145) mmol/L Chloride (98-107) mmol/L BUN (7-17) mg/dL Creatinine (0.7-1.2) mg/dL Glucose (65-100) mg/dL POC Glucose 476 H (70-105) Hemoglobin A1c (4-6) % Calcium (8.4-10.2) mg/dL AST (5-40) units/L ALT (7-56) units/L Alkaline Phosphatase (35-129) units/L Total Protein (6.3-8.2) g/dL Albumin (3.9-5) g/dL Triglycerides (2-149) mg/dL Cholesterol (50-199) mg/dL LDL Cholesterol Direct (50-130) mg/dL HDL Cholesterol (40-59) mg/dL Free T4 (0.76-1.46) ng/dL Urine WBC (Auto) 32.0 H (0.0-6.0) /HPF 09/20/18 09/20/18 09/20/18 Range/Units 16:44 16:44 16:44 RBC (3.65-5.03) M/mm3 Hgb (10.1-14.3) gm/dl Hct (30.3-42.9) % RDW (13.2-15.2) % Lymph % (Auto) (13.4-35.0) % VBG pH 7.316 L (7.320-7.420) Sodium 126 L (137-145) mmol/L Chloride 92.1 L (98-107) mmol/L BUN 21 H (7-17) mg/dL Creatinine (0.7-1.2) mg/dL Glucose 633 H* (65-100) mg/dL POC Glucose (70-105) Hemoglobin A1c (4-6) % Calcium 7.8 L (8.4-10.2) mg/dL AST 95 H (5-40) units/L ALT 75 H (7-56) units/L Alkaline Phosphatase 165 H (35-129) units/L Total Protein 5.8 L (6.3-8.2) g/dL Albumin 3.4 L (3.9-5) g/dL Triglycerides (2-149) mg/dL Cholesterol (50-199) mg/dL LDL Cholesterol Direct (50-130) mg/dL HDL Cholesterol (40-59) mg/dL Free T4 0.66 L (0.76-1.46) ng/dL Urine WBC (Auto) (0.0-6.0) /HPF 09/20/18 09/20/18 09/20/18 Range/Units 16:44 16:44 18:45 RBC (3.65-5.03) M/mm3 Hgb (10.1-14.3) gm/dl Hct (30.3-42.9) % RDW (13.2-15.2) % Lymph % (Auto) (13.4-35.0) % VBG pH (7.320-7.420) Sodium (137-145) mmol/L Chloride (98-107) mmol/L BUN (7-17) mg/dL Creatinine (0.7-1.2) mg/dL Glucose (65-100) mg/dL POC Glucose 430 H (70-105) Hemoglobin A1c 12.9 H (4-6) % Calcium (8.4-10.2) mg/dL AST (5-40) units/L ALT (7-56) units/L Alkaline Phosphatase (35-129) units/L Total Protein (6.3-8.2) g/dL Albumin (3.9-5) g/dL Triglycerides 327 H (2-149) mg/dL Cholesterol 215 H (50-199) mg/dL LDL Cholesterol Direct 136 H (50-130) mg/dL HDL Cholesterol 38 L (40-59) mg/dL Free T4 (0.76-1.46) ng/dL Urine WBC (Auto) (0.0-6.0) /HPF 09/20/18 09/21/18 09/21/18 Range/Units 20:29 05:41 08:19 RBC (3.65-5.03) M/mm3 Hgb (10.1-14.3) gm/dl Hct (30.3-42.9) % RDW (13.2-15.2) % Lymph % (Auto) (13.4-35.0) % VBG pH (7.320-7.420) Sodium 136 L D (137-145) mmol/L Chloride (98-107) mmol/L BUN (7-17) mg/dL Creatinine 1.4 H (0.7-1.2) mg/dL Glucose 300 H (65-100) mg/dL POC Glucose 178 H 339 H (70-105) Hemoglobin A1c (4-6) % Calcium 7.5 L (8.4-10.2) mg/dL AST (5-40) units/L ALT (7-56) units/L Alkaline Phosphatase (35-129) units/L Total Protein (6.3-8.2) g/dL Albumin (3.9-5) g/dL Triglycerides (2-149) mg/dL Cholesterol (50-199) mg/dL LDL Cholesterol Direct (50-130) mg/dL HDL Cholesterol (40-59) mg/dL Free T4 (0.76-1.46) ng/dL Urine WBC (Auto) (0.0-6.0) /HPF 09/21/18 Range/Units 11:55 RBC (3.65-5.03) M/mm3 Hgb (10.1-14.3) gm/dl Hct (30.3-42.9) % RDW (13.2-15.2) % Lymph % (Auto) (13.4-35.0) % VBG pH (7.320-7.420) Sodium (137-145) mmol/L Chloride (98-107) mmol/L BUN (7-17) mg/dL Creatinine (0.7-1.2) mg/dL Glucose (65-100) mg/dL POC Glucose 109 H (70-105) Hemoglobin A1c (4-6) % Calcium (8.4-10.2) mg/dL AST (5-40) units/L ALT (7-56) units/L Alkaline Phosphatase (35-129) units/L Total Protein (6.3-8.2) g/dL Albumin (3.9-5) g/dL Triglycerides (2-149) mg/dL Cholesterol (50-199) mg/dL LDL Cholesterol Direct (50-130) mg/dL HDL Cholesterol (40-59) mg/dL Free T4 (0.76-1.46) ng/dL Urine WBC (Auto) (0.0-6.0) /HPF - Imaging and cardiology Chest x-ray: report reviewed
[2018-09-21] MEDS ORDERED: BANOPHEN PO ONE (15:00)
[2018-09-21] MEDS: LEVAQUIN 750MG/150ML 750 MG/150 ML BAG IV SCH (17:40)
[2018-09-21] MEDS: LOVENOX SUB-Q SCH ×2 (21:18→21:21)
[2018-09-21] MEDS: MORPHINE IV PRN (21:18)
[2018-09-22 07:26] LABS: Calcium 8.1 mg/dL (8.4-10.2)
[2018-09-22] MEDS: HumaLOG SUB-Q SCH ×4 (07:59→22:01)
[2018-09-22] MEDS ORDERED: LEXISCAN IV ONE ×2 (08:59→09:00)
[2018-09-22] MEDS: D50W (25GM) Syringe IV PRN (12:54)
--- NOTE | 2018-09-22 13:00 | Event Note ---
Date: 09/22/18 Lexiscan thallium stress test completed today, findings show a normal perfusion study, no ischemia demonstrated. No further cardiac workup is indicated.
[2018-09-22] MEDS: PEPCID PO SCH ×2 (13:10→21:46)
[2018-09-22] MEDS: SODIUM CHLORIDE FLUSH SYRINGE 10 ML IV SCH ×2 (13:10→21:47)
--- NOTE | 2018-09-22 14:38 | Progress Note ---
Assessment and Plan / Chest pain, likely atypical normal stress test, preserved EF on 2d echo, cardiology consulted in ED, Placed on PPI /UTI (urinary tract infection) cont IV antibiotic therapy, / Hyponatremia due to hypoglycemia IVF resuscitation, resolved / Diabetes, uncontrolled, A1c 12.9 ADA diet, insulin, accu check, IVF resuscitation therapy. /Anemia, chronic disease supportive care, repeat cbc in am, No transfusion at this time. Hgb is 9. / Dante's disease Supportive care, Outpatient endocrinology F/U care. / Elevated LFTs likely from underlying DM, negative hepatitis panel. repeat LFT tomorrow / DVT prophylaxis SCD to BLE while in bed, Disposition: likely tomorrow if BG stable Brief History: 27 year old white female with a history of type 1 diabetes mellitus hypothyroidism and [place]'s disease presenting with sudden onset chest pain and BG of 633. Subjective Date of service: 09/22/18 Interval history: Patient seen and examined s/p stress test today BG still ~300 but dropped after stress test Objective - Exam Narrative Exam: General appearance: Present: no acute distress, well-nourished - EENT Eyes: PERRL, EOM intact ENT: hearing intact, clear oral mucosa Ears: bilateral: normal - Neck Neck: supple, normal ROM - Respiratory Respiratory effort: normal Respiratory: bilateral: CTA - Cardiovascular Rhythm: regular Heart Sounds: Present: S1 & S2. Absent: gallop, rub Extremities: pulses intact, No edema, normal color, Full ROM - Gastrointestinal General gastrointestinal: Present: soft, non-tender, non-distended, normal bowel sounds - Integumentary Integumentary: clear, warm, dry - Musculoskeletal Musculoskeletal: 1, strength equal bilaterally - Neurologic Neurologic: moves all extremities - Psychiatric Psychiatric: memory intact, appropriate mood/affect, intact judgment & insight - Constitutional Vitals: Vital Signs - 12hr 09/22/18 09/22/18 09/22/18 04:25 09:17 09:57 Temperature 97.9 F Pulse Rate 80 Respiratory 18 Rate Blood Pressure 92/60 109/81 103/73 O2 Sat by Pulse 99 Oximetry 09/22/18 09/22/18 09/22/18 10:01 10:03 10:04 Temperature Pulse Rate Respiratory Rate Blood Pressure 88/56 94/65 89/62 O2 Sat by Pulse Oximetry 09/22/18 09/22/18 09/22/18 10:05 10:06 12:46 Temperature 98.3 F Pulse Rate Respiratory 16 Rate Blood Pressure 93/62 93/65 102/70 O2 Sat by Pulse Oximetry - Labs CBC & Chem 7: 09/20/18 16:44 09/22/18 Unknown Labs: Abnormal lab results 09/21/18 09/21/18 09/22/18 Range/Units 16:31 20:47 Unknown Sodium 135 L (137-145) mmol/L Creatinine 1.5 H (0.7-1.2) mg/dL Glucose 418 H (65-100) mg/dL POC Glucose 213 H 179 H (70-105) Calcium 8.1 L (8.4-10.2) mg/dL
[2018-09-22] MEDS: MORPHINE IV PRN ×2 (15:08→20:29)
[2018-09-22] MEDS: LEVAQUIN 750MG/150ML 750 MG/150 ML BAG IV SCH (18:29)
[2018-09-22] MEDS: LOVENOX SUB-Q SCH (21:46)
--- NOTE | 2018-09-23 00:21 | Treadmill Report ---
THALLIUM STRESS TEST LEFT VENTRICLE: Left ventricular chamber size is within normal spread. Perfusion study demonstrates homogeneous uptake of the tracer in all segments, no significant defects identified. Gated analysis demonstrates normal left ventricular systolic function, ejection fraction greater than 70%. CONCLUSION: Normal myocardial perfusion study. JOB# [id number] CA/NTS
[2018-09-23] MEDS: D50W (25GM) Syringe IV PRN ×3 (02:06→13:09)
[2018-09-23 08:34] LABS: Hematocrit 28.1 % (30.3-42.9); Hemoglobin 9.2 gm/dl (10.1-14.3); Mean Corpuscular HGB Conc 33 % (30-34); Mean Corpuscular Volume 85 fl (79-97); Platelet Count 322 K/mm3 (140-440); Red Blood Count 3.33 M/mm3 (3.65-5.03); Red Cell Distribution Width 17.4 % (13.2-15.2)
[2018-09-23 08:48] LABS: Alanine Aminotransferase 52 units/L (7-56); Albumin 3.2 g/dL (3.9-5); BUN/Creatinine Ratio 9; Blood Urea Nitrogen 12 mg/dL (7-17); Calcium 8.4 mg/dL (8.4-10.2); Hemolysis Index 2
[2018-09-23] MEDS: HumaLOG SUB-Q SCH ×4 (08:54→21:54)
[2018-09-23] MEDS: ZOFRAN IV PRN (09:14)
[2018-09-23] MEDS: SODIUM CHLORIDE FLUSH SYRINGE 10 ML IV SCH ×2 (09:38→22:03)
[2018-09-23] MEDS ORDERED: PROTONIX IV SCH (10:00)
[2018-09-23] MEDS ORDERED: REGLAN IV PRN (12:39)
--- NOTE | 2018-09-23 14:40 | Progress Note ---
Assessment and Plan Assessment and plan: Chest pain, atypical normal stress test, preserved EF on 2d echo, Placed on PPI /UTI (urinary tract infection) cont IV antibiotic therapy, / Hyponatremia due to hypoglycemia IVF resuscitation, resolved / Diabetes, uncontrolled, A1c 12.9 ADA diet, insulin, accu check, IVF resuscitation therapy. Hypoglycemic episodes, multiple /Anemia, chronic disease supportive care, repeat cbc in am, No transfusion at this time. Hgb is 9. / [place]'s disease Supportive care, Outpatient endocrinology F/U care. Resume steroids from home / Elevated LFTs likely from underlying DM, negative hepatitis panel. repeat LFT tomorrow / DVT prophylaxis SCD to BLE while in bed, Not stable to dc today because hypoglycemia History Interval history: Nausea Low blood glucose episodes Hospitalist Physical - Physical exam Narrative exam: GEN: Not in acute distress, lying in bed, HEENT: Normocephalic, atraumatic, Neck: supple, No JVD heart: S1 and S2 reg, no murmurs, rubs or gallop Lungs: Clear to auscultation bilaterally, no wheeze Abd:soft, non tender, non distended, normal bowel sounds Ext: No edema,no clubbing, no cyanosis, Neuro:Awake,alert,oriented X 3, no focal signs, moves all ext Psych: normal mood - Constitutional Vitals: Temp Pulse Resp BP Pulse Ox 98.6 F 83 16 101/71 100 09/23/18 11:00 09/23/18 11:00 09/23/18 11:00 09/23/18 11:00 09/23/18 11:00 Results - Labs CBC & Chem 7: 09/23/18 08:23 09/23/18 08:23 Labs: Laboratory Last Values WBC 5.8 K/mm3 (4.5-11.0) 09/23/18 08:23 RBC 3.33 M/mm3 (3.65-5.03) L 09/23/18 08:23 Hgb 9.2 gm/dl (10.1-14.3) L 09/23/18 08:23 Hct 28.1 % (30.3-42.9) L 09/23/18 08:23 MCV 85 fl (79-97) 09/23/18 08:23 MCH 28 pg (28-32) 09/23/18 08:23 MCHC 33 % (30-34) 09/23/18 08:23 RDW 17.4 % (13.2-15.2) H 09/23/18 08:23 Plt Count 322 K/mm3 (140-440) 09/23/18 08:23 Lymph % (Auto) 38.2 % (13.4-35.0) H 09/20/18 16:44 [place] % (Auto) 5.1 % (0.0-7.3) 09/20/18 16:44 Eos % (Auto) 2.5 % (0.0-4.3) 09/20/18 16:44 Baso % (Auto) 0.9 % (0.0-1.8) 09/20/18 16:44 Lymph # 2.5 K/mm3 (1.2-5.4) 09/20/18 16:44 [place] # 0.3 K/mm3 (0.0-0.8) 09/20/18 16:44 Eos # 0.2 K/mm3 (0.0-0.4) 09/20/18 16:44 Baso # 0.1 K/mm3 (0.0-0.1) 09/20/18 16:44 Seg Neutrophils % 53.3 % (40.0-70.0) 09/20/18 16:44 Seg Neutrophils # 3.5 K/mm3 (1.8-7.7) 09/20/18 16:44 PT 12.3 Sec. (12.2-14.9) 09/20/18 16:44 INR 0.87 (0.87-1.13) 09/20/18 16:44 VBG pH 7.316 (7.320-7.420) L 09/20/18 16:44 Sodium 138 mmol/L (137-145) 09/23/18 08:23 Potassium 4.2 mmol/L (3.6-5.0) 09/23/18 08:23 Chloride 101.3 mmol/L (98-107) 09/23/18 08:23 Carbon Dioxide 27 mmol/L (22-30) 09/23/18 08:23 Anion Gap 14 mmol/L 09/23/18 08:23 BUN 12 mg/dL (7-17) 09/23/18 08:23 Creatinine 1.4 mg/dL (0.7-1.2) H 09/23/18 08:23 Estimated GFR 55 ml/min 09/23/18 08:23 BUN/Creatinine Ratio 9 % 09/23/18 08:23 Glucose 75 mg/dL (65-100) 09/23/18 08:23 POC Glucose 44 (70-105) L 09/23/18 12:23 Hemoglobin A1c 12.9 % (4-6) H 09/20/18 16:44 Calcium 8.4 mg/dL (8.4-10.2) 09/23/18 08:23 Total Bilirubin < 0.20 mg/dL (0.1-1.2) 09/23/18 08:23 AST 81 units/L (5-40) H 09/23/18 08:23 ALT 52 units/L (7-56) 09/23/18 08:23 Alkaline Phosphatase 141 units/L (35-129) H 09/23/18 08:23 Troponin T < 0.010 ng/mL (0.00-0.029) 09/21/18 01:30 Total Protein 5.8 g/dL (6.3-8.2) L 09/23/18 08:23 Albumin 3.2 g/dL (3.9-5) L 09/23/18 08:23 Albumin/Globulin Ratio 1.2 % 09/23/18 08:23 Triglycerides 327 mg/dL (2-149) H 09/20/18 16:44 Cholesterol 215 mg/dL (50-199) H 09/20/18 16:44 LDL Cholesterol Direct 136 mg/dL (50-130) H 09/20/18 16:44 HDL Cholesterol 38 mg/dL (40-59) L 09/20/18 16:44 Cholesterol/HDL Ratio 5.65 % 09/20/18 16:44 TSH 3.140 mlU/mL (0.270-4.200) 09/20/18 16:44 Free T4 0.66 ng/dL (0.76-1.46) L 09/20/18 16:44 HCG, Qual Negative (Negative) 09/20/18 16:44 Urine Color Yellow (Yellow) 09/20/18 15:16 Urine Turbidity Slightly-cloudy (Clear) 09/20/18 15:16 Urine pH 5.0 (5.0-7.0) 09/20/18 15:16 Ur Specific [place] 1.022 (1.003-1.030) 09/20/18 15:16 Urine Protein <15 mg/dl mg/dL (Negative) 09/20/18 15:16 Urine Glucose (UA) >=500 mg/dL (Negative) 09/20/18 15:16 Urine Ketones Tr mg/dL (Negative) 09/20/18 15:16 Urine Blood Neg (Negative) 09/20/18 15:16 Urine Nitrite Neg (Negative) 09/20/18 15:16 Urine Bilirubin Neg (Negative) 09/20/18 15:16 Urine Urobilinogen < 2.0 mg/dL (<2.0) 09/20/18 15:16 Ur Leukocyte Esterase Lg (Negative) 09/20/18 15:16 Urine WBC (Auto) 32.0 /HPF (0.0-6.0) H 09/20/18 15:16 Urine RBC (Auto) 5.0 /HPF (0.0-6.0) 09/20/18 15:16 U Epithel Cells (Auto) 4.0 /HPF (0-13.0) 09/20/18 15:16 Urine Bacteria (Auto) 1+ /HPF (Negative) 09/20/18 15:16 Urine Mucus Few /HPF 09/20/18 15:16 Urine Opiates Screen Presumptive negative 09/20/18 22:23 Urine Methadone Screen Presumptive negative 09/20/18 22:23 Ur Barbiturates Screen Presumptive negative 09/20/18 22:23 Ur Phencyclidine Scrn Presumptive negative 09/20/18 22:23 Ur Amphetamines Screen Presumptive negative 09/20/18 22:23 U Benzodiazepines Scrn Presumptive negative 09/20/18 22:23 Urine Cocaine Screen Presumptive negative 09/20/18 22:23 U Marijuana (THC) Screen Presumptive negative 09/20/18 22:23 Drugs of Abuse Note Disclamer 09/20/18 22:23 Plasma/Serum Alcohol < 0.01 % (0-0.07) 09/20/18 16:44 Hepatitis A IgM Ab Non-reactive (NonReactive) 09/20/18 22:30 Hep Bs Antigen Non-reactive (Negative) 09/20/18 22:30 Hep B Core IgM Ab Non-reactive (NonReactive) 09/20/18 22:30 Hepatitis C Antibody Non-reactive (NonReactive) 09/20/18 22:30 Active Medications - Current Medications Current Medications: Generic Name Dose Route Start Last Admin Trade Name Freq PRN Reason Stop Dose Admin Acetaminophen 650 mg 09/20/18 19:29 09/21/18 19:19 Tylenol PO 650 mg Q4H PRN Administration Pain MILD(1-3)/Fever >100.5/STEWARD Albuterol 2.5 mg 09/20/18 19:29 Proventil IH Q4H PRN Shortness Of Breath Atorvastatin Calcium 40 mg 09/23/18 22:00 Lipitor PO QHS MARINO Dextrose 50 ml 09/20/18 19:29 09/23/18 13:09 D50w (25gm) Syringe IV 50 ml PRN PRN Administration Hypoglycemia Enoxaparin Sodium 40 mg 09/20/18 22:00 09/22/18 21:46 Lovenox SUB-Q Not Given QDAY@2200 [facility] Levofloxacin/Dextrose 750 mg in 150 mls @ 100 mls/hr 09/21/18 18:00 09/22/18 21:45 Levaquin 750mg/150ml IV Infused Q24H [facility] Infusion Protocol Sodium Chloride 1,000 mls @ 75 mls/hr 09/20/18 21:00 09/20/18 22:06 Nacl 0.9% 1000 Ml IV 75 mls/hr DIRECT MARINO Administration Insulin Human Lispro 0 unit 09/20/18 22:00 09/23/18 12:41 Humalog SUB-Q Not Given ACHS [facility] Protocol Insulin Human NPH 15 unit 09/22/18 11:26 09/23/18 08:54 Humulin N SUB-Q Not Given BIDDIAB [facility] Metoclopramide HCl 5 mg 09/23/18 12:39 Reglan IV Q8H PRN nausea or vomiting Morphine Sulfate 1 mg 09/21/18 14:37 09/22/18 20:29 Morphine IV 1 mg Q4H PRN Administration Pain, Moderate (4-6) Nitroglycerin 0.4 mg 09/20/18 19:29 Nitrostat SL Q5M PRN Chest Pain Ondansetron HCl 4 mg 09/20/18 19:29 09/23/18 09:14 Zofran IV 4 mg Q8H PRN Administration Nausea And Vomiting Pantoprazole Sodium 40 mg 09/24/18 10:00 Protonix PO DAILY MARINO Sodium Chloride 10 ml 09/20/18 22:00 09/23/18 09:38 Sodium Chloride Flush Syringe 10 Ml IV 10 ml BID [facility]INO Administration Sodium Chloride 10 ml 09/20/18 19:29 Sodium Chloride Flush Syringe 10 Ml IV PRN PRN LINE FLUSH
[2018-09-23] MEDS ORDERED: FIORICET PO PRN (18:36)
[2018-09-23] MEDS: LEVAQUIN 750MG/150ML 750 MG/150 ML BAG IV SCH (20:18)
[2018-09-23] MEDS: LOVENOX SUB-Q SCH ×2 (21:51→22:04)
[2018-09-23] MEDS: MORPHINE IV PRN (21:52)
[2018-09-23] MEDS: CORTEF PO SCH (21:53)
[2018-09-23] MEDS: FLORINEF PO SCH (21:53)
[2018-09-24] MEDS: D50W (25GM) Syringe IV PRN (02:01)
[2018-09-24 03:14] LABS: Alanine Aminotransferase 61 units/L (7-56); Albumin 3.3 g/dL (3.9-5); BUN/Creatinine Ratio 9; Blood Urea Nitrogen 14 mg/dL (7-17); Calcium 8.5 mg/dL (8.4-10.2); Hemolysis Index 5
[2018-09-24 06:34] LABS: Basophils # (Auto) 0.1 K/mm3 (0.0-0.1); Basophils % (Auto) 2.1 % (0.0-1.8); Eosinophils % (Auto) 0.7 % (0.0-4.3); Hematocrit 28.3 % (30.3-42.9); Hemoglobin 9.3 gm/dl (10.1-14.3); Lymphocytes # (Auto) 0.9 K/mm3 (1.2-5.4); Lymphocytes % (Auto) 23.5 % (13.4-35.0); Mean Corpuscular HGB Conc 33 % (30-34); Mean Corpuscular Volume 85 fl (79-97); Monocytes # (Auto) 0.1 K/mm3 (0.0-0.8); Monocytes % (Auto) 3.1 % (0.0-7.3); Platelet Count 283 K/mm3 (140-440); Red Blood Count 3.31 M/mm3 (3.65-5.03); Red Cell Distribution Width 16.9 % (13.2-15.2)
[2018-09-24] MEDS ORDERED: SYNTHROID PO SCH (10:00)
[2018-09-24] MEDS ORDERED: SERTRALINE HCL 20 MG PO SCH (10:00)
[2018-09-24] MEDS ORDERED: PROTONIX PO SCH (10:00)
[2018-09-24] MEDS: FLORINEF PO SCH (10:49)
[2018-09-24] MEDS: CORTEF PO SCH (10:49)
[2018-09-24] MEDS: HumaLOG SUB-Q SCH ×3 (10:49→18:16)
[2018-09-24] MEDS: SODIUM CHLORIDE FLUSH SYRINGE 10 ML IV SCH (10:51)
--- NOTE | 2018-09-24 12:18 | Ultrasound Report ---
ULTRASOUND ABDOMEN LIMITED: TECHNIQUE: Transabdominal ultrasound with color Doppler interrogation. HISTORY: Elevated liver function tests. COMPARISON: none. FINDINGS: LIVER: Within normal limits. BILIARY SYSTEM: Cholecystectomy. No biliary dilatation. The CBD measures 3 mm. PANCREAS: Obscured by bowel gas. RIGHT KIDNEY: Normal. PROXIMAL AORTA: Normal. ASCITES: None. IMPRESSION: Unremarkable exam. Cholecystectomy.
--- NOTE | 2018-09-24 16:54 | Discharge Summary ---
Providers - Providers Date of Admission: 09/20/18 19:29 Date of discharge: 09/24/18 Attending physician: ARIC BENTLEY 09/20/18 Consult to Cardiac Rehabilitation [CONS] Routine Reason For Exam: Phase I [facility] Hospital course: Patient is 27 yo Female with diabetes mellitus, Addisons Disease, CKD , hypothyroidism. He presented to ED for evaluation because of chest pain, multiple episodes of vomiting and diaphoresis. Pt seen and evaluated in ED diagnosed with chest pain, UTI, Uncontrolled diabetes with glucose of 633, and anemia of chronic disease. Was given aspirin insulin for hyperglycemia on admitted. Stress test was negative. Patient had large fluctuations in blood glucose with episodes of hypoglycemia and episodes of marked hyperglycemia. For hypoglycemia she was given 50% dextrose injections. Eventually her glucose stabilized on 09/24/18 and she was discharged home to follow as an outpatient. Total time spent on discharge, 32 mins Disposition: [id number] TO HOME OR SELFCARE - Discharge Diagnoses (1) [place]'s disease Status: Acute (2) Anemia, chronic disease Status: Acute (3) Chest pain Status: Acute (4) Diabetes Status: Acute (5) Hyperglycemia Status: Acute (6) UTI (urinary tract infection) Status: Acute Core Measure Documentation - Palliative Care Palliative Care/ Comfort Measures: Not Applicable - Core Measures Any of the following diagnoses?: none Exam - Constitutional Vitals: Temp Pulse Resp BP Pulse Ox 98.2 F 88 14 103/78 99 09/24/18 04:26 09/24/18 12:18 09/24/18 04:26 09/24/18 12:18 09/24/18 12:18 Plan Activity: advance as tolerated Diet: low fat, low cholesterol, diabetic Additional Instructions: 1.Follow up with PCP in 3-5 days. 2.Follow up with Business Ethics Professor in 3-5 days. 3.Elevated LFT to be followed by PCP Follow up with: ZAINA LONDONO MD [Primary Care Provider] - 3-5 Days Prescriptions: AtorvaSTATin [Lipitor] 40 mg PO QHS #30 tab Insulin NPH, Human [NovoLIN N] 8 unit SUB-Q BIDDIAB #1 vial
[2018-09-24 17:03] VITALS: BP 103/72
[2018-09-24] MEDS: LEVAQUIN 750MG/150ML 750 MG/150 ML BAG IV SCH (18:17)
== END 2018-09-24 19:00 | disposition home or self-care (01) | DRG 313 ==
LOC: ED 14:27 → 4A 19:29
PROVIDERS: ADMIT Internal Medicine; ATTEND Internal Medicine
DX: R07.89 Other chest pain (principal); N17.9 Acute kidney failure, unspecified; N39.0 Urinary tract infection, site not specified; E87.1 Hypo-osmolality and hyponatremia; E27.1 Primary adrenocortical insufficiency; E83.51 Hypocalcemia; E03.9 Hypothyroidism, unspecified; E10.65 Type 1 diabetes mellitus with hyperglycemia; E10.649 Type 1 diabetes mellitus with hypoglycemia without coma; D63.8 Anemia in other chronic diseases classified elsewhere; E10.22 Type 1 diabetes mellitus with diabetic chronic kidney disease; N18.2 Chronic kidney disease, stage 2 (mild); Z83.3 Family history of diabetes mellitus; Z90.49 Acquired absence of other specified parts of digestive tract; Z82.49 Family history of ischemic heart disease and other diseases of the circulatory system; Z88.1 Allergy status to other antibiotic agents; Z88.0 Allergy status to penicillin; Z88.8 Allergy status to other drugs, medicaments and biological substances
CPT/HCPCS: 36415; 71045; 76705; 78452; 80048; 80053; 80061; 80074; 80307; 80320; 81001; 82330; 82805; 82947; 82962; 83036; 84439; 84443; 84484; 84703; 85025; 85027; 85610; 87116; 93005; 93010; 93017; 93306; G0378; A9270-GY; A9502; C9113; G0480; J1650; J1815; J1956; J2270; J2405; J2765; J2785; J7030; Q0163

== ENCOUNTER 2018-09-25 18:33 | Emergency (ER) | payer MEDICAID ==
[2018-09-25] MEDS ORDERED: D50W (25GM) Syringe IV ONE ×3 (19:00→20:00)
[2018-09-25] MEDS ORDERED: D50W (25GM) Vial IV ONE ×3 (19:28→21:00)
[2018-09-25] MEDS ORDERED: D10W 1,000 ML IV SCH (20:00)
[2018-09-25 20:17] LABS: Basophils % (Auto) 0.7 % (0.0-1.8); Eosinophils # (Auto) 0.1 K/mm3 (0.0-0.4); Eosinophils % (Auto) 1.5 % (0.0-4.3); Hematocrit 27.1 % (30.3-42.9); Lymphocytes # (Auto) 2.8 K/mm3 (1.2-5.4); Lymphocytes % (Auto) 40.4 % (13.4-35.0); Mean Corpuscular HGB Conc 33 % (30-34); Mean Corpuscular Volume 85 fl (79-97); Monocytes # (Auto) 0.3 K/mm3 (0.0-0.8); Platelet Count 291 K/mm3 (140-440); Red Blood Count 3.21 M/mm3 (3.65-5.03); Red Cell Distribution Width 16.8 % (13.2-15.2)
[2018-09-25 20:21] LABS: Albumin 3.5 g/dL (3.9-5); Calcium 8.2 mg/dL (8.4-10.2)
[2018-09-25 20:37] LABS: INR 0.9 (0.87-1.13)
[2018-09-25 20:38] LABS: Partial Thromboplastin Time 26.1 Sec. (24.2-36.6)
[2018-09-25] MEDS ORDERED: ZOFRAN IV ONE (22:20)
[2018-09-25] MEDS ORDERED: ZOFRAN ONE (22:26)
--- NOTE | 2018-09-25 22:37 | XRay Report ---
PROCEDURE: XR CHEST 1V AP TECHNIQUE: Frontal portable view of the chest a new HISTORY: sob COMPARISONS: Chest x-ray dated September 20, 2018 FINDINGS: There is bilateral hypoinflation. There is prominence of the interstitial markings in both lungs similar in appearance to the previous study. There is no evidence of focal infiltrate, pneumothorax or pleural fluid collection. The cardiomediastinal silhouette is normal in appearance. The bony structures are unremarkable. There appears to be a small bore central venous catheter with the tip projected in the region of the superior vena cava. IMPRESSION: 1. No definite plain film evidence of an acute pulmonary process. No significant change since previous study dated September 20, 2018. If further imaging is required, CT chest may be helpful. This document is electronically signed by Mary Anne Mcleod MD., September 25 2018 10:35:46 PM ET
[2018-09-25 23:32] LABS: WBC,Urine < 1.0 /HPF (0.0-6.0)
[2018-09-25 23:33] LABS: Bilirubin,Urine NEG (Negative); Blood,Urine NEG (Negative); Color,Urine Yellow (Yellow); Protein,Urine <15 mg/dL mg/dL (Negative); Urobilinogen,Urine < 2.0 mg/dL (<2.0)
--- NOTE | 2018-09-26 00:11 | Emergency Department Report ---
ED General Adult HPI - General Chief complaint: Hypoglycemia Stated complaint: LOW BLOOD SUGAR Time Seen by Provider: 09/25/18 19:18 Source: EMS Mode of arrival: Stretcher Limitations: Altered Mental Status - History of Present Illness Initial comments: She presents to the emergency department from a local alf for hypoglycemia. Patient is a diabetic and from the documentation from the alf she is on insulin. Patient arrived with a glucose of 20 after receiving 2 doses of oral glucose. Patient arrived without IV access -: Sudden Severity scale (0 -10): 0 Consistency: constant Improves with: none Worsens with: none Associated Symptoms: denies other symptoms Treatments Prior to Arrival: none - Related Data Home Medications Medication Instructions Recorded Confirmed Last Taken Butalb/Acetamin/Caff 50-325-40 1 tab PO Q6HR PRN 09/23/18 09/23/18 Unknown [Fioricet] Cyanocobalamin (Vitamin B-12) 0 mcg PO CONT 09/23/18 09/23/18 Unknown [Vitamin B12] Fludrocortisone [Florinef] 0.1 mg PO QDAY 09/23/18 09/23/18 Unknown Hydrocortisone [Cortef TAB] 10 mg PO DAILY 09/23/18 09/23/18 Unknown Insulin Regular, Human [Humulin R] See Protocol SC ACHS 09/23/18 09/23/18 Unknown Levothyroxine Sodium [Synthroid] 125 mcg PO DAILY 09/23/18 09/23/18 Unknown Sertraline HCl [Zoloft] 25 mg PO DAILY 09/23/18 09/24/18 09/20/18 hydrOXYzine PAMOATE [Vistaril] 25 mg PO DAILY 09/23/18 09/23/18 Unknown Previous Rx's Medication Instructions Recorded Last Taken Type AtorvaSTATin [Lipitor] 40 mg PO QHS #30 tab 09/24/18 Unknown Rx Insulin NPH, Human [NovoLIN N] 8 unit SUB-Q BIDDIAB #1 vial 09/24/18 Unknown Rx Allergies Allergy/AdvReac Type Severity Reaction Status Date / Time Penicillins Allergy Angioedema Verified 09/20/18 15:10 vortioxetine Allergy Unknown Verified 09/20/18 15:10 [From Trintellix] ziprasidone [From Geodon] Allergy Angioedema Verified 09/20/18 15:10 vancomycin AdvReac Itching Verified 09/20/18 15:10 ED Review of Systems ROS: Stated complaint: LOW BLOOD SUGAR Other details as noted in HPI Comment: All other systems reviewed and negative Constitutional: denies: chills, fever Eyes: denies: eye pain, eye discharge, vision change ENT: denies: ear pain, throat pain Respiratory: denies: cough, shortness of breath, wheezing Cardiovascular: denies: chest pain, palpitations Endocrine: no symptoms reported Gastrointestinal: denies: abdominal pain, nausea, diarrhea Genitourinary: denies: urgency, dysuria, discharge Musculoskeletal: denies: back pain, joint swelling, arthralgia Skin: denies: rash, lesions Neurological: denies: headache, weakness, paresthesias Psychiatric: denies: anxiety, depression Hematological/Lymphatic: denies: easy bleeding, easy bruising ED Past Medical Hx - Past Medical History Hx Congestive Heart Failure: No Hx Diabetes: Yes Hx Renal Disease: Yes (Stage 2) Hx Kidney Stones: No Hx Asthma: No Hx COPD: No Additional medical history: hypotension, hypothyroidism, [place]'s disease - Surgical History Hx Cholecystectomy: Yes Hx Appendectomy: Yes Additional Surgical History: 4 - Social History Smoking Status: Unknown if ever smoked - Medications Home Medications: Home Medications Medication Instructions Recorded Confirmed Last Taken Type Butalb/Acetamin/Caff 50-325-40 1 tab PO Q6HR PRN 09/23/18 09/23/18 Unknown History [Fioricet] Cyanocobalamin (Vitamin B-12) 0 mcg PO CONT 09/23/18 09/23/18 Unknown History [Vitamin B12] Fludrocortisone [Florinef] 0.1 mg PO QDAY 09/23/18 09/23/18 Unknown History Hydrocortisone [Cortef TAB] 10 mg PO DAILY 09/23/18 09/23/18 Unknown History Insulin Regular, Human [Humulin R] See Protocol SC ACHS 09/23/18 09/23/18 U nknown History Levothyroxine Sodium [Synthroid] 125 mcg PO DAILY 09/23/18 09/23/18 Unknown History Sertraline HCl [Zoloft] 25 mg PO DAILY 09/23/18 09/24/18 09/20/18 History hydrOXYzine PAMOATE [Vistaril] 25 mg PO DAILY 03/26/19 03/26/19 Unknown History AtorvaSTATin [Lipitor] 40 mg PO QHS #30 tab 09/24/18 Unknown Rx Insulin NPH, Human [NovoLIN N] 8 unit SUB-Q BIDDIAB #1 vial 09/24/18 Unknown Rx ED Physical Exam - General Limitations: Altered Mental Status General appearance: alert, in no apparent distress - Head Head exam: Present: atraumatic, normocephalic - Eye Eye exam: Present: normal appearance, PERRL, EOMI - ENT ENT exam: Present: mucous membranes moist - Neck Neck exam: Present: normal inspection - Respiratory Respiratory exam: Present: normal lung sounds bilaterally. Absent: respiratory distress, wheezes, rales, rhonchi - Cardiovascular Cardiovascular Exam: Present: regular rate, normal rhythm. Absent: systolic murmur, diastolic murmur, rubs, gallop - GI/Abdominal GI/Abdominal exam: Present: soft, normal bowel sounds. Absent: distended, tenderness - Extremities Exam Extremities exam: Present: normal inspection - Back Exam Back exam: Present: normal inspection - Neurological Exam Neurological exam: Present: alert, oriented X3, CN II-XII intact. Absent: motor sensory deficit - Psychiatric Psychiatric exam: Present: normal affect, normal mood - Skin Skin exam: Present: warm, dry, intact, normal color. Absent: rash ED Course Vital Signs 09/25/18 09/25/18 09/25/18 19:20 19:30 19:45 Pulse Rate 84 76 Respiratory 19 9 L Rate Blood Pressure 109/82 99/71 O2 Sat by Pulse 83 L 91 88 Oximetry 09/25/18 09/25/18 09/25/18 20:00 20:15 20:30 Pulse Rate 82 78 78 Respiratory 18 12 15 Rate Blood Pressure 109/72 122/90 122/94 O2 Sat by Pulse Oximetry 09/25/18 20:44 Pulse Rate Respiratory Rate Blood Pressure O2 Sat by Pulse 100 Oximetry - Central Line Placement Right Femoral Consent Obtained: emergent situation Time Out Performed: Yes Patient Placed on Monitor/Pulse Ox: Yes MD Prep: mask, gown, gloves Central Line Prep: Chlorhexidine scrub Local Anesthesia Used: Lidocaine 1% Amount of Anesthesia Used (mls): 5 Ultrasound Used for Placement: No Central Line Lumen Inserted: triple Bloods Obtained for Lab: Yes Central Line Position: good blood return, all ports aspirated, flus, sutured in place with 3-0 Dressing Applied: Tegaderm, sterile gauze/tape Patient Tolerated Procedure: well, no complications Complications: none ED Medical Decision Making - Lab Data Result diagrams: 09/25/18 20:00 09/25/18 20:00 - Medical Decision Making Multiple attempts at IV access was attempted without success thus supply was placed Patient given WEALTH at work D50 and started on a D10 drip CVL removed at 12:30 AM Critical care attestation.: If time is entered above; I have spent that time in minutes in the direct care of this critically ill patient, excluding procedure time. ED Disposition Clinical Impression: Hypoglycemia Disposition: DC-01 TO HOME OR SELFCARE Is pt being admited?: No Does the pt Need Aspirin: No Condition: Stable Instructions: Diabetic Hypoglycemia (ED) Additional Instructions: return if worse Referrals: RASHAUN COVARRUBIAS DO [Staff Physician] - 3-5 Days PRIMARY CARE, [Primary Care Provider] - 3-5 Days Time of Disposition: 00:32
[2018-09-26 00:37] VITALS: BP 99/51
== END 2018-09-26 01:25 | disposition home or self-care (01) ==
LOC: ED 18:33
DX: E11.649 Type 2 diabetes mellitus with hypoglycemia without coma (principal); E11.22 Type 2 diabetes mellitus with diabetic chronic kidney disease; N18.2 Chronic kidney disease, stage 2 (mild); I95.9 Hypotension, unspecified; E03.9 Hypothyroidism, unspecified; Z90.49 Acquired absence of other specified parts of digestive tract; Z88.0 Allergy status to penicillin; Z88.1 Allergy status to other antibiotic agents; Z88.8 Allergy status to other drugs, medicaments and biological substances; Z79.4 Long term (current) use of insulin
CPT/HCPCS: 36415; 36556; 71045; 80053; 81001; 82962; 85025; 85610; 85730; 96365; 96375; 96376; 99284; J2405

== ENCOUNTER 2018-10-22 07:39 | Inpatient (IN) | payer MEDICAID ==
[2018-10-22] MEDS ORDERED: D5W (50 ML) IV SCH (08:00)
--- NOTE | 2018-10-22 08:11 | Emergency Department Report ---
ED Seizure HPI - General Chief Complaint: Hypoglycemia Stated Complaint: LOW BLOOD SUGAR Time Seen by Provider: 10/22/18 07:59 Source: patient, EMS Mode of arrival: Stretcher Limitations: No Limitations - History of Present Illness Initial Comments: She is a 27-year-old female that presents emergency room with low blood sugar and seizure-like activity. Patient states she had 2 seizures. Patient denies chest pain shortness of breath. Patient complains of headache. Basis headache is a 7 out of 10. Patient states the pain is better with rest and worse with movement. Patient was found to have a low blood sugar. Patient states she did not take any insulin today. Patient states he does not have a history of seizure. Patient states she has not had any insulin since 9 PM the night prior. Patient is a type I diabetic. She does not have a seizure history. Patient had a seizure witnessed by her caregiver as well as a second one witnessed by EMS. MD Complaint: seizure -: Sudden Description of Episode: loss of consciousness, tonic-clonic movement -: second(s) Witnessed:: Yes Trauma: No Seizure History: none Place: home Possible Precipitating Event: none Associated Symptoms: denies: chest pain, confusion, cough, diaphoresis, fever/chills, loss of appetite, malaise, rash, shortness of breath, syncope, weakness, tongue injury, shoulder dislocation Treatments Prior to Arrival: none - Related Data Home Medications Medication Instructions Recorded Confirmed Last Taken Butalb/Acetamin/Caff 50-325-40 1 tab PO Q6HR PRN 09/23/18 09/23/18 Unknown [Fioricet] Cyanocobalamin (Vitamin B-12) 0 mcg PO CONT 09/23/18 09/23/18 Unknown [Vitamin B12] Fludrocortisone [Florinef] 0.1 mg PO QDAY 09/23/18 09/23/18 Unknown Hydrocortisone [Cortef TAB] 10 mg PO DAILY 09/23/18 09/23/18 Unknown Insulin Regular, Human [Humulin R] See Protocol SC ACHS 09/23/18 09/23/18 Unknown Levothyroxine Sodium [Synthroid] 125 mcg PO DAILY 09/23/18 09/23/18 Unknown Sertraline HCl [Zoloft] 25 mg PO DAILY 09/23/18 09/24/18 09/20/18 hydrOXYzine PAMOATE [Vistaril] 25 mg PO DAILY 09/23/18 09/23/18 Unknown Previous Rx's Medication Instructions Recorded Last Taken Type AtorvaSTATin [Lipitor] 40 mg PO QHS #30 tab 09/24/18 Unknown Rx Insulin NPH, Human [NovoLIN N] 8 unit SUB-Q BIDDIAB #1 vial 09/24/18 Unknown Rx Allergies Allergy/AdvReac Type Severity Reaction Status Date / Time Penicillins Allergy Angioedema Verified 09/20/18 15:10 vortioxetine Allergy Unknown Verified 09/20/18 15:10 [From Trintellix] ziprasidone [From Geodon] Allergy Angioedema Verified 09/20/18 15:10 vancomycin AdvReac Itching Verified 09/20/18 15:10 ED Review of Systems ROS: Stated complaint: LOW BLOOD SUGAR Other details as noted in HPI Constitutional: denies: chills, fever Eyes: denies: eye pain, eye discharge, vision change ENT: denies: ear pain, throat pain Respiratory: denies: cough, shortness of breath, wheezing Cardiovascular: denies: chest pain, palpitations Endocrine: no symptoms reported Gastrointestinal: denies: abdominal pain, nausea, diarrhea Genitourinary: denies: urgency, dysuria, discharge Musculoskeletal: denies: back pain, joint swelling, arthralgia Skin: denies: rash, lesions Neurological: headache, weakness. denies: paresthesias Psychiatric: denies: anxiety, depression Hematological/Lymphatic: denies: easy bleeding, easy bruising ED Past Medical Hx - Past Medical History Previous Medical History?: Yes Hx Congestive Heart Failure: No Hx Diabetes: Yes Hx Renal Disease: Yes (Stage 2) Hx Kidney Stones: No Hx Asthma: No Hx COPD: No Additional medical history: hypotension, hypothyroidism, [place]'s disease - Surgical History Past Surgical History?: Yes Hx Cholecystectomy: Yes Hx Appendectomy: Yes Additional Surgical History: 4 - Family History Family history: no significant - Social History Smoking Status: Never Smoker Substance Use Type: Alcohol - Medications Home Medications: Home Medications Medication Instructions Recorded Confirmed Last Taken Type Butalb/Acetamin/Caff 50-325-40 1 tab PO Q6HR PRN 09/23/18 09/23/18 Unknown History [Fioricet] Cyanocobalamin (Vitamin B-12) 0 mcg PO CONT 09/23/18 09/23/18 Unknown History [Vitamin B12] Fludrocortisone [Florinef] 0.1 mg PO QDAY 09/23/18 09/23/18 Unknown History Hydrocortisone [Cortef TAB] 10 mg PO DAILY 09/23/18 09/23/18 Unknown History Insulin Regular, Human [Humulin R] See Protocol SC ACHS 09/23/18 09/23/18 Unknown History Levothyroxine Sodium [Synthroid] 125 mcg PO DAILY 09/23/18 09/23/18 Unknown History Sertraline HCl [Zoloft] 25 mg PO DAILY 09/23/18 09/24/18 09/20/18 History hydrOXYzine PAMOATE [Vistaril] 25 mg PO DAILY 09/23/18 09/23/18 Unknown History AtorvaSTATin [Lipitor] 40 mg PO QHS #30 tab 09/24/18 Unknown Rx Insulin NPH, Human [NovoLIN N] 8 unit SUB-Q BIDDIAB #1 vial 09/24/18 Unknown Rx ED Physical Exam - General Limitations: No Limitations General appearance: alert, in no apparent distress - Head Head exam: Present: atraumatic, normocephalic - Eye Eye exam: Present: normal appearance, PERRL Pupils: Present: normal accommodation - ENT ENT exam: Present: mucous membranes moist - Neck Neck exam: Present: normal inspection - Respiratory Respiratory exam: Present: normal lung sounds bilaterally. Absent: respiratory distress - Cardiovascular Cardiovascular Exam: Present: regular rate, normal rhythm. Absent: systolic murmur, diastolic murmur, rubs, gallop - GI/Abdominal GI/Abdominal exam: Present: soft, normal bowel sounds. Absent: distended, tenderness, guarding, rebound - Extremities Exam Extremities exam: Present: normal inspection - Back Exam Back exam: Present: normal inspection - Neurological Exam Neurological exam: Present: alert, oriented X3 - Psychiatric Psychiatric exam: Present: normal affect, normal mood - Skin Skin exam: Present: warm, dry, intact, normal color. Absent: rash ED Course Vital Signs 10/22/18 10/22/18 10/22/18 07:48 08:00 08:02 Temperature 98.8 F Pulse Rate 68 Respiratory 17 Rate Blood Pressure 109/68 O2 Sat by Pulse 100 100 Oximetry 10/22/18 08:30 Temperature Pulse Rate 69 Respiratory 15 Rate Blood Pressure 109/68 O2 Sat by Pulse 100 Oximetry - Reevaluation(s) Reevaluation #1: Disposition evaluation done. Patient found to be hypoglycemic and given one amp of D50. Recheck blood sugar. 10/22/18 08:00 Blood sugars above 100 10/22/18 08:15 Discussed all results with patient. Discussed plan of care with patient. Patient was admitted to the hospital service for further evaluation and observation. Patient admitted for new-onset seizure in the face of hyperglycemia. Patient agrees with plan of care and admission. 10/22/18 10:09 ED Medical Decision Making - Lab Data Result diagrams: 10/22/18 08:45 10/22/18 08:45 - EKG Data -: EKG Interpreted by Nd EKG shows normal: sinus rhythm, axis, intervals, QRS complexes, ST-T waves Rate: normal - Radiology Data Radiology results: report reviewed CT HEAD WITHOUT CONTRAST: HISTORY: Seizure, headache. TECHNIQUE: Sequential 2.5mm CT images. COMPARISON: none. FINDINGS: Cerebral Parenchyma: Within normal limits. Cerebellum: Within normal limits. Brainstem: Within normal limits. Ventricles: Normal. Sella: Normal. Extra-axial spaces: Normal. Basal Cisterns: Normal. Intracranial Hemorrhage: None. Midline Shift: None. Calvarium: Normal. Sinuses: Normal. Mastoid Air Cells: Normal. Visualized Orbits: Normal. IMPRESSION: Cranial CT scan within normal limits. AP CHEST: HISTORY: Seizure AP view of the chest demonstrates a normal mediastinal and cardiac contour with clear lungs and normal bony and soft tissue structures. Kvatzd-o-Fkqc tubing or retained lead is noted in the right side of the chest which is unchanged since 09/25/18. IMPRESSION: Unremarkable AP chest. - Medical Decision Making Patient is a 27-year-old female presents emergency room with complaints of new onset seizure activity and hypoglycemia. Patient is a type I diabetic. Patient states she has insulin-dependent since 9 PM the night prior and she still had a hypoglycemic episode. Had a seizure this morning witnessed by the nurse at her [facility] and also had a seizure in route via. Patient's labs done. Patient had CT negative. Patient's chest x-ray negative. Patient's EKG EKG negative. Patient was admitted to the hospitalist service. Patient's labs remarkable for lactic acidosis and hypokalemia. Patient also found to be anemic. - Differential Diagnosis seizure. New-onset seizure. Hypoglycemic-induced seizure. Hypoglycemia. Critical Care Time: Yes Critical care attestation.: If time is entered above; I have spent that time in minutes in the direct care of this critically ill patient, excluding procedure time. Critical Care Time: 45 minutes ED Disposition Clinical Impression: Seizure, Hypoglycemia, Insulin dependent diabetes mellitus, New onset seizure, Lactic acid acidosis Headache Qualifiers: Headache type: unspecified Headache chronicity pattern: acute headache Intrac tability: not intractable Qualified Code(s): R51 - Headache Anemia Qualifiers: Anemia type: unspecified type Qualified Code(s): D64.9 - Anemia, unspecified Disposition: DC-09 OP ADMIT IP TO THIS HOSP Is pt being admited?: Yes Does the pt Need Aspirin: No Condition: Critical Time of Disposition: 10:03
[2018-10-22 09:02] LABS: Hematocrit 28.8 % (30.3-42.9); Hemoglobin 9.4 gm/dl (10.1-14.3); Mean Corpuscular HGB Conc 33 % (30-34); Mean Corpuscular Volume 84 fl (79-97); Platelet Count 252 K/mm3 (140-440); Red Blood Count 3.41 M/mm3 (3.65-5.03); Red Cell Distribution Width 15.3 % (13.2-15.2)
--- NOTE | 2018-10-22 09:18 | XRay Report ---
AP CHEST: HISTORY: Seizure AP view of the chest demonstrates a normal mediastinal and cardiac contour with clear lungs and normal bony and soft tissue structures. Qvaxlo-j-Ndpy tubing or retained lead is noted in the right side of the chest which is unchanged since 09/25/18. IMPRESSION: Unremarkable AP chest.
[2018-10-22 09:32] LABS: Alanine Aminotransferase 39 units/L (7-56); Albumin 3.4 g/dL (3.9-5); BUN/Creatinine Ratio 18; Blood Urea Nitrogen 21 mg/dL (7-17); Calcium 8.3 mg/dL (8.4-10.2); Creatine Kinase MB < 1.0 ng/mL (0.0-4.0); Hemolysis Index 0
[2018-10-22] MEDS ORDERED: NACL 0.9% 1000 ML 1,000 ML IV ONE (09:47)
--- NOTE | 2018-10-22 09:55 | Cat Scan Report ---
CT HEAD WITHOUT CONTRAST: HISTORY: Seizure, headache. TECHNIQUE: Sequential 2.5mm CT images. COMPARISON: none. FINDINGS: Cerebral Parenchyma: Within normal limits. Cerebellum: Within normal limits. Brainstem: Within normal limits. Ventricles: Normal. Sella: Normal. Extra-axial spaces: Normal. Basal Cisterns: Normal. Intracranial Hemorrhage: None. Midline Shift: None. Calvarium: Normal. Sinuses: Normal. Mastoid Air Cells: Normal. Visualized Orbits: Normal. IMPRESSION: Cranial CT scan within normal limits.
--- NOTE | 2018-10-22 12:02 | History and Physical Report ---
History of Present Illness Date of examination: 10/22/18 Date of admission: 10/22/18 10:07 Chief complaint: Witnessed seizures/hypoglycemia History of present illness: 27-year-old female patient with significant past medical history of diabetes mellitus presented to the emergency room. Presented to the emergency room with witnessed seizures2, patient was found to be hypoglycemic, noncompliant with medications Patient denied any chest pain or shortness of breath, nausea vomiting without abdominal pain, complains of some intermittent headache At the time of my evaluation patient is alert and oriented 3 No new complaints, patient has no history of seizures in the past Past History Past Medical History: diabetes, hypertension, other (hyponatremia syndrome, [place]'s disease) Past Surgical History: appendectomy, cholecystectomy, Social history: full code. denies: smoking, alcohol abuse, prescription drug abuse Family history: hypertension Medications and Allergies Allergies Allergy/AdvReac Type Severity Reaction Status Date / Time Penicillins Allergy Angioedema Verified 09/20/18 15:10 vortioxetine Allergy Unknown Verified 09/20/18 15:10 [From Trintellix] ziprasidone [From Geodon] Allergy Angioedema Verified 09/20/18 15:10 vancomycin AdvReac Itching Verified 09/20/18 15:10 Home Medications Medication Instructions Recorded Confirmed Last Taken Type Butalb/Acetamin/Caff 50-325-40 1 tab PO Q6HR PRN 09/23/18 10/22/18 Unknown History [Fioricet] Cyanocobalamin (Vitamin B-12) 0 mcg PO CONT 09/23/18 10/22/18 Unknown History [Vitamin B12] Fludrocortisone [Florinef] 0.1 mg PO QDAY 09/23/18 10/22/18 Unknown History Hydrocortisone [Cortef TAB] 10 mg PO DAILY 09/23/18 10/22/18 Unknown History Insulin Regular, Human [Humulin R] See Protocol SC ACHS 09/23/18 10/22/18 Unknown History Levothyroxine Sodium [Synthroid] 125 mcg PO DAILY 09/23/18 10/22/18 Unknown History Sertraline HCl [Zoloft] 25 mg PO DAILY 09/23/18 10/22/18 09/20/18 History hydrOXYzine PAMOATE [Vistaril] 25 mg PO DAILY 09/23/18 10/22/18 Unknown History AtorvaSTATin [Lipitor] 40 mg PO QHS #30 tab 09/24/18 10/22/18 Unknown Rx Insulin NPH, Human [NovoLIN N] 8 unit SUB-Q BIDDIAB #1 vial 09/24/18 10/22/18 Unknown Rx Active Meds: Active Medications Dextrose (D5w (50 Ml)) 50 ml IV NOW MARINO Last Admin: 10/22/18 08:00 Dose: 50 ml Documented by: Review of Systems Constitutional: no weight loss, no weight gain, no fever, no chills Ears, nose, mouth and throat: no nasal congestion, no nasal discharge Cardiovascular: no chest pain, no orthopnea, no palpitations Respiratory: no cough, no shortness of breath Gastrointestinal: no abdominal pain, no nausea, no vomiting Genitourinary Female: no flank pain, no dysuria Musculoskeletal: no myalgias, no arthritis Integumentary: no rash, no lesions Neurological: seizures Psychiatric: no anxiety, no depression Endocrine: no cold intolerance, no heat intolerance Hematologic/Lymphatic: no easy bruising, no easy bleeding Allergic/Immunologic: no urticaria, no allergic rhinitis Exam - Constitutional Vitals: Temp Pulse Resp BP Pulse Ox 98.8 F 65 14 103/76 100 10/22/18 08:02 10/22/18 09:00 10/22/18 09:00 10/22/18 09:00 10/22/18 09:00 General appearance: Present: no acute distress, well-nourished - EENT Eyes: Present: PERRL, EOM intact - Neck Neck: Present: supple, normal ROM - Respiratory Respiratory effort: normal Respiratory: bilateral: diminished, negative: rales, rhonchi, wheezing - Cardiovascular Rhythm: regular Heart Sounds: Present: S1 & S2 - Extremities Extremities: no ischemia, No edema - Abdominal General gastrointestinal: Present: soft, non-tender, non-distended, normal bowel sounds - Integumentary Integumentary: Present: clear, warm - Musculoskeletal Musculoskeletal: strength equal bilaterally - Psychiatric Psychiatric: appropriate mood/affect, cooperative - Neurologic Neurologic: CNII-XII intact, moves all extremities Results - Labs CBC & Chem 7: 10/22/18 08:45 10/22/18 08:45 Labs: Abnormal lab results 04/24/19 04/24/19 04/24/19 Range/Units 07:45 08:13 08:45 RBC 3.41 L (3.65-5.03) M/mm3 Hgb 9.4 L (10.1-14.3) gm/dl Hct 28.8 L (30.3-42.9) % RDW 15.3 H (13.2-15.2) % Potassium (3.6-5.0) mmol/L Chloride (98-107) mmol/L BUN (7-17) mg/dL Glucose (65-100) mg/dL POC Glucose < 40 L 191 H (70-105) Lactic Acid (0.7-2.0) mmol/L Calcium (8.4-10.2) mg/dL AST (5-40) units/L Total Protein (6.3-8.2) g/dL Albumin (3.9-5) g/dL 10/22/18 10/22/18 Range/Units 08:45 08:45 RBC (3.65-5.03) M/mm3 Hgb (10.1-14.3) gm/dl Hct (30.3-42.9) % RDW (13.2-15.2) % Potassium 3.3 L (3.6-5.0) mmol/L Chloride 97.1 L (98-107) mmol/L BUN 21 H (7-17) mg/dL Glucose 128 H (65-100) mg/dL POC Glucose (70-105) Lactic Acid 2.70 H* (0.7-2.0) mmol/L Calcium 8.3 L (8.4-10.2) mg/dL AST 64 H (5-40) units/L Total Protein 5.7 L (6.3-8.2) g/dL Albumin 3.4 L (3.9-5) g/dL Assessment and Plan --Hypoglycemia episode; Resolved, avoiding sitting, regular diet, hypoglycemia protocol Closely monitor blood sugars --Type 1 diabetes mellitus; Accu-Chek sliding scale coverage Regular diet, diabetic education, hold long-acting insulin --Seizures/New onset; seizure precautions Ativan as needed, neurology consult, EEG Consider antiepileptic medications Keppra --[place]'s disease/hyponatremia syndrome; 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 --Lactic acidosis; improved --Moderate malnutrition; nutrition supplements --The prophylaxis; Lovenox Monitor the patient closely and adjust management as needed Plan of care is reviewed with the patient
[2018-10-22] MEDS ORDERED: FIORICET PO PRN (13:19)
[2018-10-22 14:17] LABS: Basophils % (Manual) 0 % (0.0-1.8); Platelet Estimate Consistent w Auto; RBC Morphology Normal; Total Cells Counted 100
[2018-10-22] MEDS ORDERED: ATIVAN IV PRN (17:28)
[2018-10-22] MEDS: HumaLOG SUB-Q SCH ×2 (17:44→22:28)
[2018-10-23] MEDS ORDERED: NACL 0.9% 500 ML 500 ML IV ONE (01:12)
[2018-10-23] MEDS: SYNTHROID PO SCH (05:31)
[2018-10-23] MEDS: HumaLOG SUB-Q SCH ×4 (08:00→23:11)
[2018-10-23] MEDS ORDERED: SERTRALINE HCL 25 MG PO SCH (10:00)
[2018-10-23] MEDS: CORTEF PO SCH (10:43)
[2018-10-23] MEDS: FLORINEF PO SCH (10:43)
--- NOTE | 2018-10-23 11:30 | Progress Note ---
Assessment and Plan Assessment and plan: --Left-sided chest wall pain, since she had seizure prior to admission Denies any cough or shortness of breath Check rib series, supportive care with pain medications Incentive spirometry if needed --New onset Seizures; seizure precautions No new episodes since admission, neurology evaluation Ativan as needed, Keppra 500 mg twice a day, follow EEG --Hypoglycemia episode; resolved Hold insulin, regular diet, hypoglycemia protocol Closely monitor blood sugars --Type 1 diabetes mellitus; Accu-Chek sliding scale coverage Regular diet, diabetic education, hold long-acting insulin --[place]'s disease/hyponatremia syndrome; 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 --Lactic acidosis; improved --Moderate malnutrition; nutrition supplements --DVT prophylaxis; Lovenox Discussed with neurologist Dr. Andrews Monitor the patient closely and adjust management as needed Plan of care is reviewed with the patient Possible discharge in 1-2 days if stable History Interval history: Patient seen and examined medical records reviewed Patient complains of left side rib cage pain Reports trauma at the time of her seizure Mild local tenderness, no shortness of breath or cough Vital signs reviewed Hospitalist Physical - Constitutional Vitals: Temp Pulse Resp BP Pulse Ox 98.5 F 90 18 100/60 97 10/23/18 05:38 10/23/18 05:52 10/23/18 05:38 10/23/18 05:52 10/23/18 05:38 General appearance: Present: no acute distress, well-nourished - EENT Eyes: Present: PERRL, EOM intact - Neck Neck: Present: supple, normal ROM - Respiratory Respiratory effort: normal Respiratory: bilateral: diminished, negative: rales, rhonchi, wheezing - Cardiovascular Rhythm: regular Heart Sounds: Present: S1 & S2 - Extremities Extremities: no ischemia, No edema - Abdominal General gastrointestinal: soft, non-tender, non-distended, normal bowel sounds - Integumentary Integumentary: Present: clear, warm - Psychiatric Psychiatric: appropriate mood/affect, cooperative - Neurologic Neurologic: CNII-XII intact, moves all extremities Results - Labs CBC & Chem 7: 10/22/18 08:45 10/22/18 08:45 Labs: Laboratory Last Values WBC 8.5 K/mm3 (4.5-11.0) 10/22/18 08:45 RBC 3.41 M/mm3 (3.65-5.03) L 10/22/18 08:45 Hgb 9.4 gm/dl (10.1-14.3) L 10/22/18 08:45 Hct 28.8 % (30.3-42.9) L 10/22/18 08:45 MCV 84 fl (79-97) 10/22/18 08:45 MCH 28 pg (28-32) 10/22/18 08:45 MCHC 33 % (30-34) 10/22/18 08:45 RDW 15.3 % (13.2-15.2) H 10/22/18 08:45 Plt Count 252 K/mm3 (140-440) 10/22/18 08:45 Add Manual Diff Complete 10/22/18 08:45 Total Counted 100 10/22/18 08:45 Seg Neuts % (Manual) 50.0 % (40.0-70.0) 10/22/18 08:45 Band Neutrophils % 0 % 10/22/18 08:45 Lymphocytes % (Manual) 47.0 % (13.4-35.0) H 10/22/18 08:45 Reactive Lymphs % (Man) 0 % 10/22/18 08:45 Monocytes % (Manual) 1.0 % (0.0-7.3) 10/22/18 08:45 Eosinophils % (Manual) 2.0 % (0.0-4.3) 10/22/18 08:45 Basophils % (Manual) 0 % (0.0-1.8) 10/22/18 08:45 Metamyelocytes % 0 % 10/22/18 08:45 Myelocytes % 0 % 10/22/18 08:45 Promyelocytes % 0 % 10/22/18 08:45 Blast Cells % 0 % 10/22/18 08:45 Nucleated RBC % Not Reportable 10/22/18 08:45 Seg Neutrophils # Man 4.3 K/mm3 (1.8-7.7) 10/22/18 08:45 Band Neutrophils # 0.0 K/mm3 10/22/18 08:45 Lymphocytes # (Manual) 4.0 K/mm3 (1.2-5.4) 10/22/18 08:45 Abs React Lymphs (Man) 0.0 K/mm3 10/22/18 08:45 Monocytes # (Manual) 0.1 K/mm3 (0.0-0.8) 10/22/18 08:45 Eosinophils # (Manual) 0.2 K/mm3 (0.0-0.4) 10/22/18 08:45 Basophils # (Manual) 0.0 K/mm3 (0.0-0.1) 10/22/18 08:45 Metamyelocytes # 0.0 K/mm3 10/22/18 08:45 Myelocytes # 0.0 K/mm3 10/22/18 08:45 Promyelocytes # 0.0 K/mm3 10/22/18 08:45 Blast Cells # 0.0 K/mm3 10/22/18 08:45 WBC Morphology Not Reportable 10/22/18 08:45 Hypersegmented Neuts Not Reportable 10/22/18 08:45 Hyposegmented Neuts Not Reportable 10/22/18 08:45 Hypogranular Neuts Not Reportable 10/22/18 08:45 Smudge Cells Not Reportable 10/22/18 08:45 Toxic Granulation Not Reportable 10/22/18 08:45 Toxic Vacuolation Not Reportable 10/22/18 08:45 Dohle Bodies Not Reportable 10/22/18 08:45 Pelger-Huet Anomaly Not Reportable 10/22/18 08:45 Fredrick Rods Not Reportable 10/22/18 08:45 Platelet Estimate Consistent w auto 10/22/18 08:45 Clumped Platelets Not Reportable 10/22/18 08:45 Plt Clumps, EDTA Not Reportable 10/22/18 08:45 Large Platelets Not Reportable 10/22/18 08:45 Giant Platelets Not Reportable 10/22/18 08:45 Platelet Satelliting Not Reportable 10/22/18 08:45 Plt Morphology Comment Not Reportable 10/22/18 08:45 RBC Morphology Normal 10/22/18 08:45 Dimorphic RBCs Not Reportable 10/22/18 08:45 Polychromasia Not Reportable 10/22/18 08:45 Hypochromasia Not Reportable 10/22/18 08:45 Poikilocytosis Not Reportable 10/22/18 08:45 Anisocytosis Not Reportable 10/22/18 08:45 Microcytosis Not Reportable 10/22/18 08:45 Macrocytosis Not Reportable 10/22/18 08:45 Spherocytes Not Reportable 10/22/18 08:45 Pappenheimer Bodies Not Reportable 10/22/18 08:45 Sickle Cells Not Reportable 10/22/18 08:45 Target Cells Not Reportable 10/22/18 08:45 Tear Drop Cells Not Reportable 10/22/18 08:45 Ovalocytes Not Reportable 10/22/18 08:45 Helmet Cells Not Reportable 10/22/18 08:45 [place] Bodies Not Reportable 10/22/18 08:45 [place] Rings Not Reportable 10/22/18 08:45 Fermin Cells Not Reportable 10/22/18 08:45 Bite Cells Not Reportable 10/22/18 08:45 Crenated Cell Not Reportable 10/22/18 08:45 Elliptocytes Not Reportable 10/22/18 08:45 Acanthocytes (Spur) Not Reportable 10/22/18 08:45 Rouleaux Not Reportable 10/22/18 08:45 Hemoglobin C Crystals Not Reportable 10/22/18 08:45 Schistocytes Not Reportable 10/22/18 08:45 Malaria parasites Not Reportable 10/22/18 08:45 Jose Bodies Not Reportable 10/22/18 08:45 Hem Pathologist Commnt No 10/22/18 08:45 Sodium 137 mmol/L (137-145) 10/22/18 08:45 Potassium 3.3 mmol/L (3.6-5.0) L 10/22/18 08:45 Chloride 97.1 mmol/L (98-107) L 10/22/18 08:45 Carbon Dioxide 28 mmol/L (22-30) 10/22/18 08:45 Anion Gap 15 mmol/L 10/22/18 08:45 BUN 21 mg/dL (7-17) H 10/22/18 08:45 Creatinine 1.2 mg/dL (0.7-1.2) 10/22/18 08:45 Estimated GFR > 60 ml/min 10/22/18 08:45 BUN/Creatinine Ratio 18 % 10/22/18 08:45 Glucose 128 mg/dL (65-100) H 10/22/18 08:45 POC Glucose 93 (70-105) 10/23/18 07:38 Lactic Acid 1.70 mmol/L (0.7-2.0) 10/22/18 14:18 Calcium 8.3 mg/dL (8.4-10.2) L 10/22/18 08:45 Total Bilirubin 0.20 mg/dL (0.1-1.2) 10/22/18 08:45 AST 64 units/L (5-40) H 10/22/18 08:45 ALT 39 units/L (7-56) 10/22/18 08:45 Alkaline Phosphatase 93 units/L (35-129) 10/22/18 08:45 Total Creatine Kinase 31 units/L (30-135) 10/22/18 08:45 CK-MB (CK-2) < 1.0 ng/mL (0.0-4.0) 10/22/18 08:45 CK-MB (CK-2) Rel Index 3.2 (0-4) 10/22/18 08:45 Troponin T < 0.010 ng/mL (0.00-0.029) 10/22/18 08:45 Total Protein 5.7 g/dL (6.3-8.2) L 10/22/18 08:45 Albumin 3.4 g/dL (3.9-5) L 10/22/18 08:45 Albumin/Globulin Ratio 1.5 % 10/22/18 08:45 HCG, Qual Negative (Negative) 10/22/18 08:45 Active Medications - Current Medications Current Medications: Generic Name Dose Route Start Last Admin Trade Name Freq PRN Reason Stop Dose Admin Acetaminophen/Butalbital/Caffeine 1 tab 10/22/18 13:19 Fioricet PO Q6HR PRN Headache Atorvastatin Calcium 40 mg 10/22/18 22:00 10/22/18 22:25 Lipitor PO 40 mg QHS MARINO Administration Dextrose 50 ml 10/22/18 08:00 10/22/18 08:00 D5w (50 Ml) IV 50 ml NOW MARINO Administration Fludrocortisone Acetate 0.1 mg 10/23/18 10:00 10/23/18 10:43 Florinef PO 0.1 mg QDAY MARINO Administration Hydrocortisone Acetate 10 mg 10/23/18 10:00 10/23/18 10:43 Cortef PO 10 mg DAILY MARINO Administration Hydroxyzine Pamoate 25 mg 10/23/18 10:00 Vistaril PO DAILY [facility] Insulin Human Lispro 0 unit 10/22/18 16:30 10/23/18 08:00 Humalog SUB-Q Not Given ACHS [facility] Protocol Levothyroxine Sodium 125 mcg 10/23/18 06:00 10/23/18 05:31 Synthroid PO 125 mcg DAILY@0600 [facility] Administration Lorazepam 2 mg 10/22/18 17:28 Ativan IV Q1H PRN Seizures Sertraline HCl 25 mg 10/23/18 10:00 Zoloft PO QDAY MARINO
[2018-10-23] MEDS: VISTARIL PO SCH (12:52)
[2018-10-23] MEDS: NACL 0.9% 1000 ML 1,000 ML IV SCH (12:52)
[2018-10-23] MEDS: ZOLOFT PO SCH (12:53)
--- NOTE | 2018-10-23 13:51 | Progress Note ---
Subjective Date of service: 10/23/18 Interval history: see the ED notye onset of weseizures and the CT is normal suspect epilepsy plan w/u Objective - Vital Sign Vital Signs - 12hr 10/23/18 10/23/18 10/23/18 03:49 05:38 05:52 Temperature 98.5 F Pulse Rate 88 87 90 Respiratory 18 Rate Blood Pressure 100/69 Blood Pressure 93/54 100/60 [Right] O2 Sat by Pulse 97 Oximetry 10/23/18 12:05 Temperature 99.3 F Pulse Rate 91 H Respiratory 18 Rate Blood Pressure 95/63 Blood Pressure [Right] O2 Sat by Pulse 98 Oximetry - Laboratory Findings CBC and BMP: 10/22/18 08:45 10/22/18 08:45 Abnormal Lab Findings: Abnormal Labs 10/22/18 10/22/18 10/22/18 07:45 08:13 08:45 RBC 3.41 L Hgb 9.4 L Hct 28.8 L RDW 15.3 H Lymphocytes % (Manual) 47.0 H Potassium Chloride BUN Glucose POC Glucose < 40 L 191 H Lactic Acid Calcium AST Total Protein Albumin 10/22/18 10/22/18 10/22/18 08:45 08:45 16:35 RBC Hgb Hct RDW Lymphocytes % (Manual) Potassium 3.3 L Chloride 97.1 L BUN 21 H Glucose 128 H POC Glucose 106 H Lactic Acid 2.70 H* Calcium 8.3 L AST 64 H Total Protein 5.7 L Albumin 3.4 L 10/22/18 10/23/18 22:06 12:09 RBC Hgb Hct RDW Lymphocytes % (Manual) Potassium Chloride BUN Glucose POC Glucose 253 H 215 H Lactic Acid Calcium AST Total Protein Albumin
--- NOTE | 2018-10-23 15:37 | XRay Report ---
LEFT RIBS, 3 VIEWS: History: pain. Routine views of the rib cage demonstrate normal mineralization with no significant contour abnormalities, fractures or destructive lesions. PA view of the chest demonstrates no underlying cardiopulmonary abnormalities, fluid or pneumothorax. IMPRESSION: Unremarkable left rib series.
--- NOTE | 2018-10-23 16:32 | Progress Note ---
Subjective Date of service: 10/23/18 Interval history: recooemnd keppra 5oo mg po BID info to Dr. Alexis EEG stable just checked Objective - Vital Sign Vital Signs - 12hr 10/23/18 10/23/18 10/23/18 05:38 05:52 12:05 Temperature 98.5 F 99.3 F Pulse Rate 87 90 91 H Respiratory 18 18 Rate Blood Pressure 100/69 95/63 Blood Pressure 100/60 [Right] O2 Sat by Pulse 97 98 Oximetry - Laboratory Findings CBC and BMP: 10/22/18 08:45 10/22/18 08:45 Abnormal Lab Findings: Abnormal Labs 10/22/18 10/22/18 10/22/18 07:45 08:13 08:45 RBC 3.41 L Hgb 9.4 L Hct 28.8 L RDW 15.3 H Lymphocytes % (Manual) 47.0 H Potassium Chloride BUN Glucose POC Glucose < 40 L 191 H Lactic Acid Calcium AST Total Protein Albumin 10/22/18 10/22/18 10/22/18 08:45 08:45 16:35 RBC Hgb Hct RDW Lymphocytes % (Manual) Potassium 3.3 L Chloride 97.1 L BUN 21 H Glucose 128 H POC Glucose 106 H Lactic Acid 2.70 H* Calcium 8.3 L AST 64 H Total Protein 5.7 L Albumin 3.4 L 10/22/18 10/23/18 22:06 12:09 RBC Hgb Hct RDW Lymphocytes % (Manual) Potassium Chloride BUN Glucose POC Glucose 253 H 215 H Lactic Acid Calcium AST Total Protein Albumin
[2018-10-23] MEDS: KEPPRA PO SCH (22:04)
[2018-10-24] MEDS: NACL 0.9% 1000 ML 1,000 ML IV SCH ×3 (03:15→22:58)
[2018-10-24] MEDS: SYNTHROID PO SCH (05:24)
[2018-10-24 07:54] LABS: Basophils % (Auto) 0.7 % (0.0-1.8); Eosinophils # (Auto) 0.1 K/mm3 (0.0-0.4); Eosinophils % (Auto) 1.5 % (0.0-4.3); Hemoglobin 7.9 gm/dl (10.1-14.3); Lymphocytes # (Auto) 2.9 K/mm3 (1.2-5.4); Lymphocytes % (Auto) 47.9 % (13.4-35.0); Mean Corpuscular HGB Conc 33 % (30-34); Mean Corpuscular Volume 85 fl (79-97); Monocytes # (Auto) 0.3 K/mm3 (0.0-0.8); Monocytes % (Auto) 4.6 % (0.0-7.3); Platelet Count 218 K/mm3 (140-440); Red Blood Count 2.84 M/mm3 (3.65-5.03); Red Cell Distribution Width 15.3 % (13.2-15.2)
[2018-10-24 08:05] LABS: Alanine Aminotransferase 39 units/L (7-56); Albumin 2.8 g/dL (3.9-5); BUN/Creatinine Ratio 17; Blood Urea Nitrogen 20 mg/dL (7-17); Calcium 7.5 mg/dL (8.4-10.2); Hemolysis Index 2
[2018-10-24] MEDS: HumaLOG SUB-Q SCH ×4 (09:42→22:49)
[2018-10-24] MEDS: ZOLOFT PO SCH (09:44)
[2018-10-24] MEDS: KEPPRA PO SCH ×2 (09:44→22:44)
[2018-10-24] MEDS: VITAMIN B-12 PO SCH (09:44)
[2018-10-24] MEDS: VISTARIL PO SCH (09:44)
[2018-10-24] MEDS: CORTEF PO SCH (09:44)
[2018-10-24] MEDS: FLORINEF PO SCH (09:54)
--- NOTE | 2018-10-24 13:36 | Progress Note ---
Subjective Date of service: 10/24/18 Interval history: no further seizures as the patient is on therapeutic keppra anemia is noted wexplained the dx to patient and made emphasis to the issue of better compliance Thanks Objective - Vital Sign Vital Signs - 12hr 10/24/18 10/24/18 06:03 11:44 Temperature 97.5 F L 98.0 F Pulse Rate 71 81 Respiratory 15 18 Rate Blood Pressure 109/70 108/72 O2 Sat by Pulse 100 100 Oximetry - Laboratory Findings CBC and BMP: 10/24/18 04:00 10/24/18 04:00 Abnormal Lab Findings: Abnormal Labs 10/22/18 10/22/18 10/22/18 07:45 08:13 08:45 RBC 3.41 L Hgb 9.4 L Hct 28.8 L MCH RDW 15.3 H Lymph % (Auto) Lymphocytes % (Manual) 47.0 H Potassium Chloride BUN Glucose POC Glucose < 40 L 191 H Lactic Acid Calcium AST Total Protein Albumin 10/22/18 10/22/18 10/22/18 08:45 08:45 16:35 RBC Hgb Hct MCH RDW Lymph % (Auto) Lymphocytes % (Manual) Potassium 3.3 L Chloride 97.1 L BUN 21 H Glucose 128 H POC Glucose 106 H Lactic Acid 2.70 H* Calcium 8.3 L AST 64 H Total Protein 5.7 L Albumin 3.4 L 10/22/18 10/23/18 10/23/18 22:06 12:09 17:39 RBC Hgb Hct MCH RDW Lymph % (Auto) Lymphocytes % (Manual) Potassium Chloride BUN Glucose POC Glucose 253 H 215 H 204 H Lactic Acid Calcium AST Total Protein Albumin 10/23/18 10/24/18 10/24/18 21:33 04:00 04:00 RBC 2.84 L Hgb 7.9 L Hct 24.0 L MCH 33 H RDW 15.3 H Lymph % (Auto) 47.9 H Lymphocytes % (Manual) Potassium Chloride 108.2 H BUN 20 H Glucose 180 H POC Glucose 237 H Lactic Acid Calcium 7.5 L AST 94 H Total Protein 4.8 L Albumin 2.8 L 10/24/18 10/24/18 07:52 11:48 RBC Hgb Hct MCH RDW Lymph % (Auto) Lymphocytes % (Manual) Potassium Chloride BUN Glucose POC Glucose 204 H 223 H Lactic Acid Calcium AST Total Protein Albumin
--- NOTE | 2018-10-24 17:19 | Progress Note ---
Assessment and Plan Assessment and plan: --Mild drop in H/H; no evidence of bleeding Probably dilutional, repeat H&H --New onset Seizures; seizure precautions Ativan as needed, Keppra 500 mg twice a day, follow EEG Neurology following, advised the patient not to drive --Left-sided chest wall pain, since she had seizure prior to admission X-rays rib series; no acute abnormalities, no fractures, no infiltrates Symptoms improved --Hypoglycemia episode; resolved Sliding scale coverage changed to ADA diet hypoglycemia protocol, Closely monitor blood sugars --Type 1 diabetes mellitus; Accu-Chek sliding scale coverage Regular diet, diabetic education, hold long-acting insulin --[place]'s disease/hyponatremia syndrome; 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 Andrews Possible discharge tomorrow if stable History Interval history: Patient seen and examined medical records reviewed Patient feels slightly better no new episodes of seizures Neurology evaluation and recommendation noted Started on Keppra Mild drop in H&H No new complaints Vital signs reviewed Hospitalist Physical - Constitutional Vitals: Temp Pulse Resp BP Pulse Ox 98.0 F 81 18 108/72 100 10/24/18 11:44 10/24/18 11:44 10/24/18 11:44 10/24/18 11:44 10/24/18 11:44 General appearance: Present: no acute distress, well-nourished - EENT Eyes: Present: PERRL, EOM intact - Neck Neck: Present: supple, normal ROM - Respiratory Respiratory effort: normal Respiratory: negative: rales, rhonchi, wheezing - Cardiovascular Rhythm: regular Heart Sounds: Present: S1 & S2 - Extremities Extremities: no ischemia, No edema - Abdominal General gastrointestinal: soft, non-tender, non-distended, normal bowel sounds - Integumentary Integumentary: Present: clear, warm - Psychiatric Psychiatric: appropriate mood/affect, cooperative - Neurologic Neurologic: CNII-XII intact, moves all extremities Results - Labs CBC & Chem 7: 10/24/18 04:00 10/24/18 04:00 Labs: Laboratory Last Values WBC 6.1 K/mm3 (4.5-11.0) 10/24/18 04:00 RBC 2.84 M/mm3 (3.65-5.03) L 10/24/18 04:00 Hgb 7.9 gm/dl (10.1-14.3) L 10/24/18 04:00 Hct 24.0 % (30.3-42.9) L 10/24/18 04:00 MCV 85 fl (79-97) 10/24/18 04:00 MCH 33 pg (28-32) H 10/24/18 04:00 MCHC 33 % (30-34) 10/24/18 04:00 RDW 15.3 % (13.2-15.2) H 10/24/18 04:00 Plt Count 218 K/mm3 (140-440) 10/24/18 04:00 Lymph % (Auto) 47.9 % (13.4-35.0) H 10/24/18 04:00 [place] % (Auto) 4.6 % (0.0-7.3) 10/24/18 04:00 Eos % (Auto) 1.5 % (0.0-4.3) 10/24/18 04:00 Baso % (Auto) 0.7 % (0.0-1.8) 10/24/18 04:00 Lymph # 2.9 K/mm3 (1.2-5.4) 10/24/18 04:00 [place] # 0.3 K/mm3 (0.0-0.8) 10/24/18 04:00 Eos # 0.1 K/mm3 (0.0-0.4) 10/24/18 04:00 Baso # 0.0 K/mm3 (0.0-0.1) 10/24/18 04:00 Add Manual Diff Complete 10/22/18 08:45 Total Counted 100 10/22/18 08:45 Seg Neutrophils % 45.3 % (40.0-70.0) 10/24/18 04:00 Seg Neuts % (Manual) 50.0 % (40.0-70.0) 10/22/18 08:45 Band Neutrophils % 0 % 10/22/18 08:45 Lymphocytes % (Manual) 47.0 % (13.4-35.0) H 10/22/18 08:45 Reactive Lymphs % (Man) 0 % 10/22/18 08:45 Monocytes % (Manual) 1.0 % (0.0-7.3) 10/22/18 08:45 Eosinophils % (Manual) 2.0 % (0.0-4.3) 10/22/18 08:45 Basophils % (Manual) 0 % (0.0-1.8) 10/22/18 08:45 Metamyelocytes % 0 % 10/22/18 08:45 Myelocytes % 0 % 10/22/18 08:45 Promyelocytes % 0 % 10/22/18 08:45 Blast Cells % 0 % 10/22/18 08:45 Nucleated RBC % Not Reportable 10/22/18 08:45 Seg Neutrophils # 2.8 K/mm3 (1.8-7.7) 10/24/18 04:00 Seg Neutrophils # Man 4.3 K/mm3 (1.8-7.7) 10/22/18 08:45 Band Neutrophils # 0.0 K/mm3 10/22/18 08:45 Lymphocytes # (Manual) 4.0 K/mm3 (1.2-5.4) 10/22/18 08:45 Abs React Lymphs (Man) 0.0 K/mm3 10/22/18 08:45 Monocytes # (Manual) 0.1 K/mm3 (0.0-0.8) 10/22/18 08:45 Eosinophils # (Manual) 0.2 K/mm3 (0.0-0.4) 10/22/18 08:45 Basophils # (Manual) 0.0 K/mm3 (0.0-0.1) 10/22/18 08:45 Metamyelocytes # 0.0 K/mm3 10/22/18 08:45 Myelocytes # 0.0 K/mm3 10/22/18 08:45 Promyelocytes # 0.0 K/mm3 10/22/18 08:45 Blast Cells # 0.0 K/mm3 10/22/18 08:45 WBC Morphology Not Reportable 10/22/18 08:45 Hypersegmented Neuts Not Reportable 10/22/18 08:45 Hyposegmented Neuts Not Reportable 10/22/18 08:45 Hypogranular Neuts Not Reportable 10/22/18 08:45 Smudge Cells Not Reportable 10/22/18 08:45 Toxic Granulation Not Reportable 10/22/18 08:45 Toxic Vacuolation Not Reportable 10/22/18 08:45 Dohle Bodies Not Reportable 10/22/18 08:45 Pelger-Huet Anomaly Not Reportable 10/22/18 08:45 Fredrick Rods Not Reportable 10/22/18 08:45 Platelet Estimate Consistent w auto 10/22/18 08:45 Clumped Platelets Not Reportable 10/22/18 08:45 Plt Clumps, EDTA Not Reportable 10/22/18 08:45 Large Platelets Not Reportable 10/22/18 08:45 Giant Platelets Not Reportable 10/22/18 08:45 Platelet Satelliting Not Reportable 10/22/18 08:45 Plt Morphology Comment Not Reportable 10/22/18 08:45 RBC Morphology Normal 10/22/18 08:45 Dimorphic RBCs Not Reportable 10/22/18 08:45 Polychromasia Not Reportable 10/22/18 08:45 Hypochromasia Not Reportable 10/22/18 08:45 Poikilocytosis Not Reportable 10/22/18 08:45 Anisocytosis Not Reportable 10/22/18 08:45 Microcytosis Not Reportable 10/22/18 08:45 Macrocytosis Not Reportable 10/22/18 08:45 Spherocytes Not Reportable 10/22/18 08:45 Pappenheimer Bodies Not Reportable 10/22/18 08:45 Sickle Cells Not Reportable 10/22/18 08:45 Target Cells Not Reportable 10/22/18 08:45 Tear Drop Cells Not Reportable 10/22/18 08:45 Ovalocytes Not Reportable 10/22/18 08:45 Helmet Cells Not Reportable 10/22/18 08:45 [place] Bodies Not Reportable 10/22/18 08:45 [place] Rings Not Reportable 10/22/18 08:45 Fermin Cells Not Reportable 10/22/18 08:45 Bite Cells Not Reportable 10/22/18 08:45 Crenated Cell Not Reportable 10/22/18 08:45 Elliptocytes Not Reportable 10/22/18 08:45 Acanthocytes (Spur) Not Reportable 10/22/18 08:45 Rouleaux Not Reportable 10/22/18 08:45 Hemoglobin C Crystals Not Reportable 10/22/18 08:45 Schistocytes Not Reportable 10/22/18 08:45 Malaria parasites Not Reportable 10/22/18 08:45 Jose Bodies Not Reportable 10/22/18 08:45 Hem Pathologist Commnt No 10/22/18 08:45 Sodium 145 mmol/L (137-145) D 10/24/18 04:00 Potassium 3.9 mmol/L (3.6-5.0) 10/24/18 04:00 Chloride 108.2 mmol/L (98-107) H 10/24/18 04:00 Carbon Dioxide 25 mmol/L (22-30) 10/24/18 04:00 Anion Gap 16 mmol/L 10/24/18 04:00 BUN 20 mg/dL (7-17) H 10/24/18 04:00 Creatinine 1.2 mg/dL (0.7-1.2) 10/24/18 04:00 Estimated GFR > 60 ml/min 10/24/18 04:00 BUN/Creatinine Ratio 17 % 10/24/18 04:00 Glucose 180 mg/dL (65-100) H 10/24/18 04:00 POC Glucose 86 (70-105) 10/24/18 16:33 Lactic Acid 1.70 mmol/L (0.7-2.0) 10/22/18 14:18 Calcium 7.5 mg/dL (8.4-10.2) L 10/24/18 04:00 Total Bilirubin 0.30 mg/dL (0.1-1.2) 10/24/18 04:00 AST 94 units/L (5-40) H 10/24/18 04:00 ALT 39 units/L (7-56) 10/24/18 04:00 Alkaline Phosphatase 78 units/L (35-129) 10/24/18 04:00 Total Creatine Kinase 31 units/L (30-135) 10/22/18 08:45 CK-MB (CK-2) < 1.0 ng/mL (0.0-4.0) 10/22/18 08:45 CK-MB (CK-2) Rel Index 3.2 (0-4) 10/22/18 08:45 Troponin T < 0.010 ng/mL (0.00-0.029) 10/22/18 08:45 Total Protein 4.8 g/dL (6.3-8.2) L 10/24/18 04:00 Albumin 2.8 g/dL (3.9-5) L 10/24/18 04:00 Albumin/Globulin Ratio 1.4 % 10/24/18 04:00 HCG, Qual Negative (Negative) 10/22/18 08:45 Active Medications - Current Medications Current Medications: Generic Name Dose Route Start Last Admin Trade Name Freq PRN Reason Stop Dose Admin Acetaminophen/Butalbital/Caffeine 1 tab 10/22/18 13:19 Fioricet PO Q6HR PRN Headache Atorvastatin Calcium 40 mg 10/22/18 22:00 10/23/18 22:04 Lipitor PO 40 mg QHS MARINO Administration Cyanocobalamin 1,000 mcg 10/24/18 10:00 10/24/18 09:44 Vitamin B-12 PO 1,000 mcg QDAY MARINO Administration Dextrose 50 ml 10/22/18 08:00 10/22/18 08:00 D5w (50 Ml) IV 50 ml NOW MARINO Administration Fludrocortisone Acetate 0.1 mg 10/23/18 10:00 10/24/18 09:54 Florinef PO 0.1 mg QDAY MARINO Administration Hydrocortisone Acetate 10 mg 10/23/18 10:00 10/24/18 09:44 Cortef PO 10 mg DAILY [facility] Administration Hydroxyzine Pamoate 25 mg 10/23/18 10:00 10/24/18 09:44 Vistaril PO 25 mg DAILY [facility]INO Administration Sodium Chloride 1,000 mls @ 100 mls/hr 10/23/18 12:00 10/24/18 13:25 Nacl 0.9% 1000 Ml IV 100 mls/hr DIRECT MARINO Administration Insulin Human Lispro 0 unit 10/22/18 16:30 10/24/18 12:59 Humalog SUB-Q 3 unit ACHS [facility]INO Administration Protocol Levetiracetam 500 mg 10/23/18 22:00 10/24/18 09:44 Keppra PO 500 mg BID MARINO Administration Levothyroxine Sodium 125 mcg 10/23/18 06:00 10/24/18 05:24 Synthroid PO 125 mcg DAILY@0600 [facility] Administration Lorazepam 2 mg 10/22/18 17:28 Ativan IV Q1H PRN Seizures Sertraline HCl 25 mg 10/23/18 10:00 10/24/18 09:44 Zoloft PO 25 mg QDAY MARINO Administration
[2018-10-24 18:36] LABS: Hematocrit 23.6 % (30.3-42.9); Hemoglobin 7.8 gm/dl (10.1-14.3)
--- NOTE | 2018-10-24 22:18 | Consultation ---
HISTORY OF PRESENT ILLNESS: A 27-year-old white female with a prior history of type 1 diabetes, complications of [place]'s disease, and autonomic dysfunction as well as having adrenal dysfunction. She is taken care of by Dr. Edwards. She takes insulin. She has had prior history of generalized seizures, but has not taken medications previously. By description, she had several generalized seizures. The patient is aware she has seizure disorder, but has not been taking medication for unclear reasons. The patient has been on Zoloft therapy 25 mg a day. PAST MEDICAL HISTORY: She has allergies to PENICILLIN, VORTIOXETINE, ZIPRASIDONE, and VANCOMYCIN. FAMILY HISTORY: The patient has negative family history. REVIEW OF SYSTEMS: Indicates she has focal jerking warning with partial onset and gets nauseated and dizzy immediately prior to the seizures. PHYSICAL EXAMINATION: VITAL SIGNS: Her current blood pressure is 109/70, pulse rate is 80, respirations 18, temperature is 97.5 degrees. NECK: Supple. NEUROLOGIC: Cranial nerves 2-12 are intact. Speech is clear. Affect is appropriate. No focal motor rigidity is noted. No tremors, no asterixis, no visual field cuts are present. IMPRESSION: This patient has poorly controlled seizures due to noncompliances. Blood sugars are in the range of 215 to 223. She has a slightly elevated AST level of 94, which is not terribly significant and low albumin of 2.8, which should be looked into as this may be aggravating her blood pressure control. As well, she has a very low hematocrit 24.0 and has been on B12 and iron therapy. My recommendation is to start on Keppra therapy. She certainly should not be on any medication that would impair pair her blood producing capacity. I would refer her back to her family medical doctor to make sure that this anemia is being addressed as this certainly would be a precipitant for her seizures. Her blood sugars are above the range that I would expect will be compatible with good seizure control also as blood sugars should be kept below 180 to 160. I have reviewed her CT scan of the head, MRI, EEG. They are all unremarkable. I shared this information with the patient and reassured her that her condition should improve. JOB# [id number] VANESSA/MARINO
[2018-10-25] MEDS: SYNTHROID PO SCH (06:23)
[2018-10-25 06:46] LABS: Basophils # (Auto) 0.1 K/mm3 (0.0-0.1); Basophils % (Auto) 0.9 % (0.0-1.8); Eosinophils # (Auto) 0.1 K/mm3 (0.0-0.4); Eosinophils % (Auto) 1.8 % (0.0-4.3); Hematocrit 24.1 % (30.3-42.9); Hemoglobin 7.7 gm/dl (10.1-14.3); Lymphocytes # (Auto) 2.7 K/mm3 (1.2-5.4); Lymphocytes % (Auto) 41.2 % (13.4-35.0); Mean Corpuscular HGB Conc 32 % (30-34); Mean Corpuscular Volume 85 fl (79-97); Monocytes # (Auto) 0.3 K/mm3 (0.0-0.8); Platelet Count 205 K/mm3 (140-440); Red Blood Count 2.84 M/mm3 (3.65-5.03); Red Cell Distribution Width 15.3 % (13.2-15.2)
[2018-10-25 07:12] LABS: BUN/Creatinine Ratio 11; Blood Urea Nitrogen 13 mg/dL (7-17); Calcium 7.4 mg/dL (8.4-10.2); Hemolysis Index 2
--- NOTE | 2018-10-25 08:33 | Progress Note ---
Assessment and Plan Assessment and plan: --Hyperglycemia: Type 1 diabetes mellitus; Resume her long-acting insulin 7030, Accu-Chek sliding scale coverage --Hypoglycemia episode; present on admission resolved Sliding scale coverage changed to ADA diet hypoglycemia protocol, Closely monitor blood sugars --Hypokalemia; replace per protocol and monitor levels --Mild drop in H/H; no evidence of bleeding Probably dilutional, repeat H&H --New onset Seizures; seizure precautions Ativan as needed, Keppra 500 mg twice a day, follow EEG Neurology following, advised the patient not to drive --Left-sided chest wall pain, since she had seizure prior to admission X-rays rib series; no acute abnormalities, no fractures, no infiltrates Symptoms improved --Type 1 diabetes mellitus; Accu-Chek sliding scale coverage Regular diet, diabetic education, hold long-acting insulin --Dante's disease/hyponatremia syndrome; 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 Andrews Possible discharge tomorrow if stable History Interval history: Patient seen and examined this morning medical records reviewed Patient feels better however first blood sugars are very high in 300s Patient has no new complaints Vital signs noted Hospitalist Physical - Constitutional Vitals: Temp Pulse Resp BP Pulse Ox 97.8 F 75 18 102/70 100 10/25/18 05:41 10/25/18 05:41 10/25/18 05:41 10/25/18 05:41 10/25/18 05:41 General appearance: Present: no acute distress, well-nourished - EENT Eyes: Present: PERRL, EOM intact - Neck Neck: Present: supple, normal ROM - Respiratory Respiratory effort: normal Respiratory: bilateral: diminished, negative: rales, rhonchi, wheezing - Cardiovascular Rhythm: regular Heart Sounds: Present: S1 & S2 - Extremities Extremities: no ischemia, No edema - Abdominal General gastrointestinal: soft, non-tender, non-distended, normal bowel sounds - Integumentary Integumentary: Present: clear, warm - Psychiatric Psychiatric: appropriate mood/affect, cooperative - Neurologic Neurologic: CNII-XII intact, moves all extremities Results - Labs CBC & Chem 7: 10/25/18 06:00 10/25/18 06:00 Labs: Laboratory Last Values WBC 6.6 K/mm3 (4.5-11.0) 10/25/18 06:00 RBC 2.84 M/mm3 (3.65-5.03) L 10/25/18 06:00 Hgb 7.7 gm/dl (10.1-14.3) L 10/25/18 06:00 Hct 24.1 % (30.3-42.9) L 10/25/18 06:00 MCV 85 fl (79-97) 10/25/18 06:00 MCH 27 pg (28-32) L 10/25/18 06:00 MCHC 32 % (30-34) 10/25/18 06:00 RDW 15.3 % (13.2-15.2) H 10/25/18 06:00 Plt Count 205 K/mm3 (140-440) 10/25/18 06:00 Lymph % (Auto) 41.2 % (13.4-35.0) H 10/25/18 06:00 [place] % (Auto) 4.0 % (0.0-7.3) 10/25/18 06:00 Eos % (Auto) 1.8 % (0.0-4.3) 10/25/18 06:00 Baso % (Auto) 0.9 % (0.0-1.8) 10/25/18 06:00 Lymph # 2.7 K/mm3 (1.2-5.4) 10/25/18 06:00 [place] # 0.3 K/mm3 (0.0-0.8) 10/25/18 06:00 Eos # 0.1 K/mm3 (0.0-0.4) 10/25/18 06:00 Baso # 0.1 K/mm3 (0.0-0.1) 10/25/18 06:00 Add Manual Diff Complete 10/22/18 08:45 Total Counted 100 10/22/18 08:45 Seg Neutrophils % 52.1 % (40.0-70.0) 10/25/18 06:00 Seg Neuts % (Manual) 50.0 % (40.0-70.0) 10/22/18 08:45 Band Neutrophils % 0 % 10/22/18 08:45 Lymphocytes % (Manual) 47.0 % (13.4-35.0) H 10/22/18 08:45 Reactive Lymphs % (Man) 0 % 10/22/18 08:45 Monocytes % (Manual) 1.0 % (0.0-7.3) 10/22/18 08:45 Eosinophils % (Manual) 2.0 % (0.0-4.3) 10/22/18 08:45 Basophils % (Manual) 0 % (0.0-1.8) 10/22/18 08:45 Metamyelocytes % 0 % 10/22/18 08:45 Myelocytes % 0 % 10/22/18 08:45 Promyelocytes % 0 % 10/22/18 08:45 Blast Cells % 0 % 10/22/18 08:45 Nucleated RBC % Not Reportable 10/22/18 08:45 Seg Neutrophils # 3.4 K/mm3 (1.8-7.7) 10/25/18 06:00 Seg Neutrophils # Man 4.3 K/mm3 (1.8-7.7) 10/22/18 08:45 Band Neutrophils # 0.0 K/mm3 10/22/18 08:45 Lymphocytes # (Manual) 4.0 K/mm3 (1.2-5.4) 10/22/18 08:45 Abs React Lymphs (Man) 0.0 K/mm3 10/22/18 08:45 Monocytes # (Manual) 0.1 K/mm3 (0.0-0.8) 10/22/18 08:45 Eosinophils # (Manual) 0.2 K/mm3 (0.0-0.4) 10/22/18 08:45 Basophils # (Manual) 0.0 K/mm3 (0.0-0.1) 10/22/18 08:45 Metamyelocytes # 0.0 K/mm3 10/22/18 08:45 Myelocytes # 0.0 K/mm3 10/22/18 08:45 Promyelocytes # 0.0 K/mm3 10/22/18 08:45 Blast Cells # 0.0 K/mm3 10/22/18 08:45 WBC Morphology Not Reportable 10/22/18 08:45 Hypersegmented Neuts Not Reportable 10/22/18 08:45 Hyposegmented Neuts Not Reportable 10/22/18 08:45 Hypogranular Neuts Not Reportable 10/22/18 08:45 Smudge Cells Not Reportable 10/22/18 08:45 Toxic Granulation Not Reportable 10/22/18 08:45 Toxic Vacuolation Not Reportable 10/22/18 08:45 Dohle Bodies Not Reportable 10/22/18 08:45 Pelger-Huet Anomaly Not Reportable 10/22/18 08:45 Fredrick Rods Not Reportable 10/22/18 08:45 Platelet Estimate Consistent w auto 10/22/18 08:45 Clumped Platelets Not Reportable 10/22/18 08:45 Plt Clumps, EDTA Not Reportable 10/22/18 08:45 Large Platelets Not Reportable 10/22/18 08:45 Giant Platelets Not Reportable 10/22/18 08:45 Platelet Satelliting Not Reportable 10/22/18 08:45 Plt Morphology Comment Not Reportable 10/22/18 08:45 RBC Morphology Normal 10/22/18 08:45 Dimorphic RBCs Not Reportable 10/22/18 08:45 Polychromasia Not Reportable 10/22/18 08:45 Hypochromasia Not Reportable 10/22/18 08:45 Poikilocytosis Not Reportable 10/22/18 08:45 Anisocytosis Not Reportable 10/22/18 08:45 Microcytosis Not Reportable 10/22/18 08:45 Macrocytosis Not Reportable 10/22/18 08:45 Spherocytes Not Reportable 10/22/18 08:45 Pappenheimer Bodies Not Reportable 10/22/18 08:45 Sickle Cells Not Reportable 10/22/18 08:45 Target Cells Not Reportable 10/22/18 08:45 Tear Drop Cells Not Reportable 10/22/18 08:45 Ovalocytes Not Reportable 10/22/18 08:45 Helmet Cells Not Reportable 10/22/18 08:[address] [place] Bodies Not Reportable 10/22/18 08:45 [place] Rings Not Reportable 10/22/18 08:45 [place] Cells Not Reportable 10/22/18 08:45 Bite Cells Not Reportable 10/22/18 08:45 Crenated Cell Not Reportable 10/22/18 08:45 Elliptocytes Not Reportable 10/22/18 08:45 Acanthocytes (Spur) Not Reportable 10/22/18 08:45 Rouleaux Not Reportable 10/22/18 08:45 Hemoglobin C Crystals Not Reportable 10/22/18 08:45 Schistocytes Not Reportable 10/22/18 08:45 Malaria parasites Not Reportable 10/22/18 08:45 Jose Bodies Not Reportable 10/22/18 08:45 Hem Pathologist Commnt No 10/22/18 08:45 Sodium 138 mmol/L (137-145) 10/25/18 06:00 Potassium 3.2 mmol/L (3.6-5.0) L 10/25/18 06:00 Chloride 104.4 mmol/L (98-107) 10/25/18 06:00 Carbon Dioxide 22 mmol/L (22-30) 10/25/18 06:00 Anion Gap 15 mmol/L 10/25/18 06:00 BUN 13 mg/dL (7-17) 10/25/18 06:00 Creatinine 1.2 mg/dL (0.7-1.2) 10/25/18 06:00 Estimated GFR > 60 ml/min 10/25/18 06:00 BUN/Creatinine Ratio 11 % 10/25/18 06:00 Glucose 316 mg/dL (65-100) H 10/25/18 06:00 POC Glucose 338 (70-105) H 10/25/18 07:34 Lactic Acid 1.70 mmol/L (0.7-2.0) 10/22/18 14:18 Calcium 7.4 mg/dL (8.4-10.2) L 10/25/18 06:00 Total Bilirubin 0.30 mg/dL (0.1-1.2) 10/24/18 04:00 AST 94 units/L (5-40) H 10/24/18 04:00 ALT 39 units/L (7-56) 10/24/18 04:00 Alkaline Phosphatase 78 units/L (35-129) 10/24/18 04:00 Total Creatine Kinase 31 units/L (30-135) 10/22/18 08:45 CK-MB (CK-2) < 1.0 ng/mL (0.0-4.0) 10/22/18 08:45 CK-MB (CK-2) Rel Index 3.2 (0-4) 10/22/18 08:45 Troponin T < 0.010 ng/mL (0.00-0.029) 10/22/18 08:45 Total Protein 4.8 g/dL (6.3-8.2) L 10/24/18 04:00 Albumin 2.8 g/dL (3.9-5) L 10/24/18 04:00 Albumin/Globulin Ratio 1.4 % 10/24/18 04:00 HCG, Qual Negative (Negative) 10/22/18 08:45 Active Medications - Current Medications Current Medications: Generic Name Dose Route Start Last Admin Trade Name Freq PRN Reason Stop Dose Admin Acetaminophen/Butalbital/Caffeine 1 tab 10/22/18 13:19 Fioricet PO Q6HR PRN Headache Atorvastatin Calcium 40 mg 10/22/18 22:00 10/24/18 22:44 Lipitor PO 40 mg QHS MARINO Administration Cyanocobalamin 1,000 mcg 10/24/18 10:00 10/24/18 09:44 Vitamin B-12 PO 1,000 mcg QDAY MARINO Administration Dextrose 50 ml 10/22/18 08:00 10/22/18 08:00 D5w (50 Ml) IV 50 ml NOW MARINO Administration Fludrocortisone Acetate 0.1 mg 10/23/18 10:00 10/24/18 09:54 Florinef PO 0.1 mg QDAY MARINO Administration Hydrocortisone Acetate 10 mg 10/23/18 10:00 10/24/18 09:44 Cortef PO 10 mg DAILY MARINO Administration Hydroxyzine Pamoate 25 mg 10/23/18 10:00 10/24/18 09:44 Vistaril PO 25 mg DAILY MARINO Administration Sodium Chloride 1,000 mls @ 100 mls/hr 10/23/18 12:00 10/24/18 22:58 Nacl 0.9% 1000 Ml IV 100 mls/hr DIRECT MARINO Administration Insulin Human Lispro 0 unit 10/22/18 16:30 10/24/18 22:49 Humalog SUB-Q 8 unit ACHS MARINO Administration Protocol Insulin Human NPH 8 unit 10/25/18 08:00 Humulin N SUB-Q BIDDIAB MARINO Levetiracetam 500 mg 10/23/18 22:00 10/24/18 22:44 Keppra PO 500 mg BID MARINO Administration Levothyroxine Sodium 125 mcg 10/23/18 06:00 10/25/18 06:23 Synthroid PO 125 mcg DAILY@0600 MARINO Administration Lorazepam 2 mg 10/22/18 17:28 Ativan IV Q1H PRN Seizures Sertraline HCl 25 mg 10/23/18 10:00 10/24/18 09:44 Zoloft PO 25 mg QDAY MARINO Administration
[2018-10-25] MEDS: HumaLOG SUB-Q SCH ×4 (08:48→22:12)
[2018-10-25] MEDS: NACL 0.9% 1000 ML 1,000 ML IV SCH ×2 (08:52→18:48)
[2018-10-25] MEDS: FLORINEF PO SCH (09:59)
[2018-10-25] MEDS: KEPPRA PO SCH ×2 (09:59→21:48)
[2018-10-25] MEDS: VITAMIN B-12 PO SCH (09:59)
[2018-10-25] MEDS: VISTARIL PO SCH (09:59)
[2018-10-25] MEDS: CORTEF PO SCH (09:59)
[2018-10-25] MEDS: ZOLOFT PO SCH (09:59)
--- NOTE | 2018-10-25 13:06 | Progress Note ---
Subjective Date of service: 10/25/18 Interval history: stable for discharge recommend discharge on Keppra 500 mg BID spoke to Dr. Reuben raman lab issues Objective - Vital Sign Vital Signs - 12hr 10/25/18 05:41 Temperature 97.8 F Pulse Rate 75 Respiratory 18 Rate Blood Pressure 102/70 O2 Sat by Pulse 100 Oximetry - Laboratory Findings CBC and BMP: 10/25/18 06:00 10/25/18 06:00 Abnormal Lab Findings: Abnormal Labs 10/22/18 10/22/18 10/22/18 07:45 08:13 08:45 RBC 3.41 L Hgb 9.4 L Hct 28.8 L MCH RDW 15.3 H Lymph % (Auto) Lymphocytes % (Manual) 47.0 H Potassium Chloride BUN Glucose POC Glucose < 40 L 191 H Lactic Acid Calcium AST Total Protein Albumin 10/22/18 10/22/18 10/22/18 08:45 08:45 16:35 RBC Hgb Hct MCH RDW Lymph % (Auto) Lymphocytes % (Manual) Potassium 3.3 L Chloride 97.1 L BUN 21 H Glucose 128 H POC Glucose 106 H Lactic Acid 2.70 H* Calcium 8.3 L AST 64 H Total Protein 5.7 L Albumin 3.4 L 10/22/18 10/23/18 10/23/18 22:06 12:09 17:39 RBC Hgb Hct MCH RDW Lymph % (Auto) Lymphocytes % (Manual) Potassium Chloride BUN Glucose POC Glucose 253 H 215 H 204 H Lactic Acid Calcium AST Total Protein Albumin 10/23/18 10/24/18 10/24/18 21:33 04:00 04:00 RBC 2.84 L Hgb 7.9 L Hct 24.0 L MCH 33 H RDW 15.3 H Lymph % (Auto) 47.9 H Lymphocytes % (Manual) Potassium Chloride 108.2 H BUN 20 H Glucose 180 H POC Glucose 237 H Lactic Acid Calcium 7.5 L AST 94 H Total Protein 4.8 L Albumin 2.8 L 10/24/18 10/24/18 10/24/18 07:52 11:48 18:15 RBC Hgb 7.8 L Hct 23.6 L MCH RDW Lymph % (Auto) Lymphocytes % (Manual) Potassium Chloride BUN Glucose POC Glucose 204 H 223 H Lactic Acid Calcium AST Total Protein Albumin 10/24/18 10/25/18 10/25/18 21:47 06:00 06:00 RBC 2.84 L Hgb 7.7 L Hct 24.1 L MCH 27 L RDW 15.3 H Lymph % (Auto) 41.2 H Lymphocytes % (Manual) Potassium 3.2 L Chloride BUN Glucose 316 H POC Glucose 404 H Lactic Acid Calcium 7.4 L AST Total Protein Albumin 10/25/18 10/25/18 07:34 11:34 RBC Hgb Hct MCH RDW Lymph % (Auto) Lymphocytes % (Manual) Potassium Chloride BUN Glucose POC Glucose 338 H 262 H Lactic Acid Calcium AST Total Protein Albumin
--- NOTE | 2018-10-25 16:18 | Event Note ---
Date: 10/25/18 Episode of hypoglycemia this afternoon, advised D50 Probably secondary to 7030 dose that she received in the morning for hyperglycemia DC 7030 insulin. Continue Accu-Chek sliding scale coverage ADA diet
[2018-10-25] MEDS ORDERED: D50W (25GM) Syringe IV ONE (17:00)
[2018-10-25] MEDS ORDERED: K-DUR PO ONE (17:30)
[2018-10-26] MEDS: SYNTHROID PO SCH (05:59)
[2018-10-26] MEDS: NACL 0.9% 1000 ML 1,000 ML IV SCH (05:59)
[2018-10-26 06:54] LABS: BUN/Creatinine Ratio 11; Blood Urea Nitrogen 13 mg/dL (7-17); Calcium 7.1 mg/dL (8.4-10.2); Hemolysis Index 2
--- NOTE | 2018-10-26 08:39 | Discharge Summary ---
Providers - Providers Date of Admission: 10/22/18 10:07 Date of discharge: 10/26/18 Attending physician: ALONSO ORLANDO 10/23/18 11:24 Consult to Physician [CONS] Routine Comment: Consulting Provider: OLIMPIA ANNE Physician Instructions: Reason For Exam: seizure x2 new onset Primary care physician: [facility], Hospitalization Reason for admission: witnessed seizure/hypoglycemia Condition: Stable Pertinent studies: CT head without contrast; Chest x-ray;; no acute abnormality EEG; normal-appearing alpha activityRib series; no acute abnormality Hospital course: 27-year-old female patient with significant past medical history of diabetes mellitus presented to the emergency room. with witnessed seizures2, patient was found to be hypoglycemic, noncompliant with medications Patient denied any chest pain or shortness of breath, nausea vomiting without abdominal pain, complains of some intermittent headache, At the time of my evaluation patient is alert and oriented 3, No new complaints, patient has no history of seizures in the past Patient was placed on seizure precautions, antiepileptic medications, evaluated by neurology, started on Keppra Strongly advised not to drive until cleared by neurology, blood pressures and blood sugars were labile fluctuating secondary to Underlying endocrine disorder, stabilized, today patient is comfortable, no new complaints Vital signs stable, physical examination and no new findings Patient is hemodynamically and clinically stable at discharge Advised to follow private manager facility, PMD and private neurologist per schedule Patient is stable at discharge Strongly advised not to drive until cleared by neurologist Discharge diagnosis; --New onset Seizures; seizure precautions Ativan as needed, Keppra 500 mg twice a day, follow EEG Neurology following, advised the patient not to drive --Hyperglycemia: Type 1 diabetes mellitus; Resume her long-acting insulin 7030, Accu-Chek sliding scale coverage --Hypoglycemia episode; present on admission resolved Sliding scale coverage changed to ADA diet hypoglycemia protocol, Closely monitor blood sugars --Hypokalemia; replace per protocol and monitor levels --Mild drop in H/H; no evidence of bleeding Probably dilutional, repeat H&H --Left-sided chest wall pain, since she had seizure prior to admission X-rays rib series; no acute abnormalities, no fractures, no infiltrates Symptoms improved --Type 1 diabetes mellitus; Accu-Chek sliding scale coverage Regular diet, diabetic education, hold long-acting insulin --Gila's disease/hyponatremia syndrome; 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 --Lactic acidosis; improved --Severe malnutrition; nutrition supplements --DVT prophylaxis; Lovenox Disposition: DC-01 TO HOME OR SELFCARE Time spent for discharge: 31min Core Measure Documentation - Palliative Care Palliative Care/ Comfort Measures: Not Applicable - Core Measures Any of the following diagnoses?: none Exam - Constitutional Vitals: Temp Pulse Resp BP Pulse Ox 97.8 F 70 20 126/87 98 10/26/18 06:18 10/26/18 06:18 10/26/18 06:18 10/26/18 06:18 10/26/18 06:18 General appearance: Present: no acute distress, well-nourished, obese - EENT Eyes: Present: PERRL, EOM intact - Neck Neck: Present: supple, normal ROM - Respiratory Respiratory effort: normal Respiratory: bilateral: diminished, negative: rales, rhonchi, wheezing - Cardiovascular Rhythm: regular Heart Sounds: Present: S1 & S2 - Extremities Extremities: no ischemia, No edema - Abdominal General gastrointestinal: Present: soft, non-tender, non-distended, normal bowel sounds - Integumentary Integumentary: Present: clear, warm - Musculoskeletal Musculoskeletal: strength equal bilaterally - Psychiatric Psychiatric: appropriate mood/affect, cooperative - Neurologic Neurologic: CNII-XII intact, moves all extremities Plan Activity: advance as tolerated, no driving until cleared by PCP ( PMD or NEUROLOGIST) Diet: diabetic Additional Instructions: Follow-up private manager facility per schedule. Do not drive until cleared by neurologist Follow up with: ZAINA LONDONO MD [Primary Care Provider] - 7 Days Prescriptions: levETIRAcetam [Keppra TAB] 500 mg PO BID #60 tablet Ondansetron [Zofran Odt] 4 mg PO Q8HR PRN #21 tab.rapdis PRN Reason: Nausea
[2018-10-26] MEDS: HumaLOG SUB-Q SCH ×3 (09:15→17:45)
[2018-10-26] MEDS: KEPPRA PO SCH (09:21)
[2018-10-26] MEDS: VITAMIN B-12 PO SCH (09:21)
[2018-10-26] MEDS: VISTARIL PO SCH (09:21)
[2018-10-26] MEDS: CORTEF PO SCH (09:21)
[2018-10-26] MEDS: FLORINEF PO SCH (09:21)
[2018-10-26] MEDS: ZOLOFT PO SCH (09:22)
[2018-10-26] MEDS ORDERED: TRIPLE ANTIBIOTIC TP ONE (12:54)
[2018-10-26] MEDS ORDERED: POLYSPORIN TP ONE (13:12)
[2018-10-26] MEDS ORDERED: FLUSH HEPARIN IV ONE (14:00)
[2018-10-26 14:37] VITALS: BP 100/66
== END 2018-10-26 19:11 | disposition home or self-care (01) | DRG 100 ==
LOC: ED 07:39 → 3A 10:07
PROVIDERS: ADMIT Internal Medicine; ATTEND Internal Medicine
DX: G40.909 Epilepsy, unspecified, not intractable, without status epilepticus (principal); E43 Unspecified severe protein-calorie malnutrition; E87.1 Hypo-osmolality and hyponatremia; I12.9 Hypertensive chronic kidney disease with stage 1 through stage 4 chronic kidney disease, or unspecified chronic kidney disease; E10.649 Type 1 diabetes mellitus with hypoglycemia without coma; E10.22 Type 1 diabetes mellitus with diabetic chronic kidney disease; R07.89 Other chest pain; N18.2 Chronic kidney disease, stage 2 (mild); E03.9 Hypothyroidism, unspecified; Z79.4 Long term (current) use of insulin; Z68.30 Body mass index [BMI] 30.0-30.9, adult; Z91.14 Patient's other noncompliance with medication regimen; Z90.49 Acquired absence of other specified parts of digestive tract; Z82.49 Family history of ischemic heart disease and other diseases of the circulatory system; Z88.0 Allergy status to penicillin; Z88.1 Allergy status to other antibiotic agents; Z88.8 Allergy status to other drugs, medicaments and biological substances; Z79.899 Other long term (current) drug therapy; Z68.31 Body mass index [BMI] 31.0-31.9, adult; E10.65 Type 1 diabetes mellitus with hyperglycemia
CPT/HCPCS: 36415; 70450; 71045; 71110; 80048; 80053; 82140; 82550; 82553; 82947; 82962; 84484; 84703; 85007; 85014; 85018; 85025; 87116; 93005; 93010; 95819; 96361; 96374; G0378; A6250; A9270-GY; J1642; J1815; J7030; J7040; Q0177

== ENCOUNTER 2018-11-07 15:59 | Inpatient (IN) | payer MEDICAID ==
[2018-11-07] MEDS ORDERED: ZOFRAN IV ONE (16:46)
[2018-11-07] MEDS ORDERED: NACL 0.9% 1000 ML 1,000 ML IV ONE (16:46)
[2018-11-07 16:51] LABS: Basophils # (Auto) 0.1 K/mm3 (0.0-0.1); Basophils % (Auto) 1.1 % (0.0-1.8); Eosinophils % (Auto) 0.5 % (0.0-4.3); Hematocrit 32.4 % (30.3-42.9); Hemoglobin 10.2 gm/dl (10.1-14.3); Lymphocytes % (Auto) 18.3 % (13.4-35.0); Mean Corpuscular HGB Conc 31 % (30-34); Mean Corpuscular Volume 86 fl (79-97); Monocytes # (Auto) 0.1 K/mm3 (0.0-0.8); Monocytes % (Auto) 1.6 % (0.0-7.3); Platelet Count 247 K/mm3 (140-440); Red Blood Count 3.76 M/mm3 (3.65-5.03); Red Cell Distribution Width 15.4 % (13.2-15.2)
--- NOTE | 2018-11-07 16:51 | Emergency Department Report ---
HPI - General Chief Complaint: Nausea/Vomiting/Diarrhea Time Seen by Provider: 11/07/18 16:33 - HPI HPI: Room 24 The patient is a 27-year-old female presenting with chief complaint of hyperglycemia. The patient has a history of diabetes mellitus type 1 and states she's been compliant with her medication. However, the patient states the past 4 days her glucometer has read "high." Patient denies any history of fever. Patient states she developed nausea and vomiting today. Patient denies dysuria or hematuria. Patient admits to urinary frequency Location: [See above] Duration: 4 days Quality: Hyperglycemia Severity: "High" Modifying factors: [see above] Context: [see above] Mode of transportation: [not driving] ED Past Medical Hx - Past Medical History Hx Diabetes: Yes Hx Renal Disease: Yes (Stage 2) Additional medical history: hypotension, hypothyroidism, Dante's disease - Surgical History Hx Cholecystectomy: Yes Hx Appendectomy: Yes Additional Surgical History: 4 - Family History Family history: no significant - Social History Smoking Status: Former Smoker (none 6 years) Substance Use Type: None (denies illicit drug use) - Medications Home Medications: Home Medications Medication Instructions Recorded Confirmed Last Taken Type Butalb/Acetamin/Caff 50-325-40 1 tab PO Q6HR PRN 09/23/18 10/22/18 Unknown History [Fioricet] Cyanocobalamin (Vitamin B-12) 0 mcg PO CONT 09/23/18 10/22/18 Unknown History [Vitamin B12] Fludrocortisone [Florinef] 0.1 mg PO QDAY 09/23/18 10/22/18 Unknown History Hydrocortisone [Cortef TAB] 10 mg PO DAILY 09/23/18 10/22/18 Unknown History Insulin Regular, Human [Humulin R] See Protocol SC ACHS 09/23/18 10/22/18 Unknown History Levothyroxine Sodium [Synthroid] 125 mcg PO DAILY 09/23/18 10/22/18 Unknown History Sertraline HCl [Zoloft] 25 mg PO DAILY 09/23/18 10/22/18 09/20/18 History hydrOXYzine PAMOATE [Vistaril] 25 mg PO DAILY 09/23/18 10/22/18 Unknown History AtorvaSTATin [Lipitor] 40 mg PO QHS #30 tab 09/24/18 10/22/18 Unknown Rx Insulin NPH, Human [NovoLIN N] 8 unit SUB-Q BIDDIAB #1 vial 09/24/18 10/22/18 Unknown Rx Ondansetron [Zofran Odt] 4 mg PO Q8HR PRN #21 tab.rapdis 10/26/18 Unknown Rx levETIRAcetam [Keppra TAB] 500 mg PO BID #60 tablet 10/26/18 Unknown Rx ED Review of Systems ROS: Stated complaint: HYPERGLYCEMIA Other details as noted in HPI Constitutional: denies: fever Eyes: denies: eye pain ENT: denies: throat pain Respiratory: no symptoms reported Cardiovascular: denies: chest pain Endocrine: other (hyperglycemia) Gastrointestinal: nausea, vomiting Genitourinary: denies: dysuria Musculoskeletal: denies: back pain Skin: denies: lesions Neurological: denies: headache Physical Exam - Physical Exam Vital Signs: Vital Signs 11/07/18 16:21 Temperature 98.6 F Pulse Rate 74 Respiratory 18 Rate Blood Pressure 122/85 O2 Sat by Pulse 99 Oximetry Physical Exam: GENERAL: The patient is well-developed well-nourished female lying on stretcher not appearing to be in acute distress. [] HEENT: Normocephalic. Atraumatic. Extraocular motions are intact. Patient has moist mucous membranes. NECK: Supple. Trachea midline CHEST/LUNGS: Clear to auscultation. There is no respiratory distress noted. HEART/CARDIOVASCULAR: Regular. There is no tachycardia. There is no gallop rub or murmur. ABDOMEN: Abdomen is soft, nontender. Patient has normal bowel sounds. There is no abdominal distention. SKIN: There is no rash. There is no edema. There is no diaphoresis. NEURO: The patient is awake, alert, and oriented. The patient is cooperative. The patient has no focal neurologic deficits. The patient has normal speech and gait. MUSCULOSKELETAL: There is no evidence of acute injury. ED Course Vital Signs 11/07/18 16:21 Temperature 98.6 F Pulse Rate 74 Respiratory 18 Rate Blood Pressure 122/85 O2 Sat by Pulse 99 Oximetry ED Medical Decision Making - Lab Data Result diagrams: 11/07/18 16:31 11/07/18 16:31 Laboratory Tests 11/07/18 11/07/18 11/07/18 16:31 16:31 16:31 WBC 5.4 RBC 3.76 Hgb 10.2 Hct 32.4 MCV 86 MCH 27 L MCHC 31 RDW 15.4 H Plt Count 247 Lymph % (Auto) 18.3 [place] % (Auto) 1.6 Eos % (Auto) 0.5 Baso % (Auto) 1.1 Lymph # 1.0 L [place] # 0.1 Eos # 0.0 Baso # 0.1 Seg Neutrophils % 78.5 H Seg Neutrophils # 4.2 VBG pH 7.384 Sodium 124 L Potassium 5.9 H Chloride 90.2 L Carbon Dioxide 21 L Anion Gap 19 BUN 15 Creatinine 1.5 H Estimated GFR 50 BUN/Creatinine Ratio 10 Glucose 789 H* Calcium 8.5 Amylase 41 Lipase 27 Urine Color Urine Turbidity Urine pH Ur Specific [place] Urine Protein Urine Glucose (UA) Urine Ketones Urine Blood Urine Nitrite Urine Bilirubin Urine Urobilinogen Ur Leukocyte Esterase Urine WBC (Auto) Urine RBC (Auto) Urine Mucus Urine HCG, Qual 11/07/18 17:35 WBC RBC Hgb Hct MCV MCH MCHC RDW Plt Count Lymph % (Auto) [place] % (Auto) Eos % (Auto) Baso % (Auto) Lymph # [place] # Eos # Baso # Seg Neutrophils % Seg Neutrophils # VBG pH Sodium Potassium Chloride Carbon Dioxide Anion Gap BUN Creatinine Estimated GFR BUN/Creatinine Ratio Glucose Calcium Amylase Lipase Urine Color Colorless Urine Turbidity Clear Urine pH 5.0 Ur Specific [place] 1.015 Urine Protein <15 mg/dl Urine Glucose (UA) >=500 Urine Ketones Tr Urine Blood Neg Urine Nitrite Neg Urine Bilirubin Neg Urine Urobilinogen < 2.0 Ur Leukocyte Esterase Neg Urine WBC (Auto) 1.0 Urine RBC (Auto) 3.0 Urine Mucus Few Urine HCG, Qual Negative - Differential Diagnosis DKA, hyperglycemia, UTI Critical care attestation.: If time is entered above; I have spent that time in minutes in the direct care of this critically ill patient, excluding procedure time. ED Disposition Clinical Impression: Hyperglycemia, Hyperkalemia, Ketonuria, Renal insufficiency Disposition: OP ADMIT IP TO THIS HOSP Is pt being admited?: Yes Does the pt Need Aspirin: No Condition: Fair Referrals: ZAINA LONDONO MD [Referring] - 3-5 Days Time of Disposition: 18:23 (hospitalist notified (Dr Han))
[2018-11-07 17:06] LABS: Calcium 8.5 mg/dL (8.4-10.2)
[2018-11-07] MEDS ORDERED: HumuLIN R IV ONE (17:43)
[2018-11-07 18:12] LABS: Bilirubin,Urine NEG (Negative); Blood,Urine NEG (Negative); Color,Urine Colorless (Yellow); Mucus,Urine FEW /HPF; Protein,Urine <15 mg/dL mg/dL (Negative); Urobilinogen,Urine < 2.0 mg/dL (<2.0)
[2018-11-07 18:15] LABS: HCG Qualitative,Urine Negative (Negative)
[2018-11-07] MEDS ORDERED: HumuLIN R 100 UNITS in NACL 0.9% 99 ML IV SCH (19:00)
[2018-11-07] MEDS ORDERED: NACL 0.9% 1000 ML 1,000 ML ONE (19:31)
[2018-11-07 19:57] LABS: Calcium 8.3 mg/dL (8.4-10.2)
[2018-11-07] MEDS ORDERED: SODIUM CHLORIDE FLUSH SYRINGE 10 ML IV PRN (20:10)
[2018-11-07] MEDS ORDERED: ZOFRAN IV PRN (20:10)
[2018-11-07] MEDS ORDERED: DILAUDID IV PRN (20:10)
[2018-11-07] MEDS ORDERED: PERCOCET 5/325 PO PRN (20:10)
[2018-11-07] MEDS ORDERED: TYLENOL PO PRN (20:10)
[2018-11-07] MEDS: NACL 0.9% 1000 ML 1,000 ML IV SCH (21:00)
--- NOTE | 2018-11-07 21:45 | History and Physical Report ---
History of Present Illness Date of examination: 11/07/18 Date of admission: 11/07/18 18:25 Chief complaint: Hyperglycemia and near-syncopal event History of present illness: 27-year-old female with history of insulin-dependent diabetes, CAD stage II, Dante's, epilepsy, hypertension thyroidism, hypertension presents to the ED via EMS with complaints of near syncopal event and hyperglycemia. She states that for the past 4 days her glucometer readings have read "high". Patient states that she experienced a near syncopal event this past and went to [facility] ED. She was treated with IV fluids and discharged to home. This morning patient was in the bathroom and fell like she was going to pass out. This episode was accompanied nausea and vomiting. She immediately called EMS and was transported to [facility] ED. She denies fever, cough, chest pain, diaphoresis, noncompliance with anti-hyperglycemic medication. Review of chart shows that patient was seen in the ED in August and September of this year for complaints of hypoglycemia and seizure like activity. Past History Past Medical History: diabetes, hypertension, hypothyroidism, seizures, other (C Zenia stage II, Dante's disease) Past Surgical History: appendectomy, cholecystectomy Social history: other (former smoker quit over 6 years ago) Family history: no significant family history Medications and Allergies Allergies Allergy/AdvReac Type Severity Reaction Status Date / Time Penicillins Allergy Angioedema Verified 09/20/18 15:10 vortioxetine Allergy Unknown Verified 09/20/18 15:10 [From Trintellix] ziprasidone [From Geodon] Allergy Angioedema Verified 09/20/18 15:10 vancomycin AdvReac Itching Verified 09/20/18 15:10 Home Medications Medication Instructions Recorded Confirmed Last Taken Type Butalb/Acetamin/Caff 50-325-40 1 tab PO Q6HR PRN 09/23/18 10/22/18 Unknown History [Fioricet] Cyanocobalamin (Vitamin B-12) 0 mcg PO CONT 09/23/18 10/22/18 Unknown History [Vitamin B12] Fludrocortisone [Florinef] 0.1 mg PO QDAY 09/23/18 10/22/18 Unknown History Hydrocortisone [Cortef TAB] 10 mg PO DAILY 09/23/18 10/22/18 Unknown History Insulin Regular, Human [Humulin R] See Protocol [facility] 09/23/18 10/22/18 Unknown History Levothyroxine Sodium [Synthroid] 125 mcg PO DAILY 09/23/18 10/22/18 Unknown History Sertraline HCl [Zoloft] 25 mg PO DAILY 09/23/18 10/22/18 09/20/18 History hydrOXYzine PAMOATE [Vistaril] 25 mg PO DAILY 09/23/18 10/22/18 Unknown History AtorvaSTATin [Lipitor] 40 mg PO QHS #30 tab 09/24/18 10/22/18 Unknown Rx Insulin NPH, Human [NovoLIN N] 8 unit SUB-Q BIDDIAB #1 vial 09/24/18 10/22/18 Unknown Rx Ondansetron [Zofran Odt] 4 mg PO Q8HR PRN #21 tab.rapdis 10/26/18 Unknown Rx levETIRAcetam [Keppra TAB] 500 mg PO BID #60 tablet 10/26/18 Unknown Rx Active Meds: Active Medications Acetaminophen (Tylenol) 650 mg PO Q4H PRN PRN Reason: Pain MILD(1-3)/Fever >100.5/STEWARD Atorvastatin Calcium (Lipitor) 40 mg PO QHS MARINO Dextrose (D50w (25gm) Syringe) 0 ml IV ONCE PRN PRN Reason: Hypoglycemia Docusate Sodium (Colace) 100 mg PO BID MARINO Hydromorphone HCl (Dilaudid) 0.5 mg IV Q3H PRN PRN Reason: Pain , Severe (7-10) Stop: 11/09/18 23:59 Hydroxyzine Pamoate (Vistaril) 25 mg PO DAILY [facility] Insulin Human Regular 100 (units/ Sodium Chloride) 100 mls @ 6 mls/hr IV TITR MARINO; Protocol Last Titration: 11/07/18 20:43 Dose: 7 units/hr, 7 mls/hr Documented by: Sodium Chloride (Nacl 0.9% 1000 Ml) 1,000 mls @ 150 mls/hr IV DIRECT MARINO Levetiracetam (Keppra) 500 mg PO BID MARINO Levothyroxine Sodium (Synthroid) 125 mcg PO DAILY MARINO Ondansetron HCl (Zofran) 4 mg IV Q8H PRN PRN Reason: Nausea And Vomiting Oxycodone/Acetaminophen (Percocet 5/325) 1 tab PO Q6H PRN PRN Reason: Pain, Moderate (4-6) Sertraline HCl (Zoloft) 25 mg PO QDAY MARINO Sodium Chloride (Sodium Chloride Flush Syringe 10 Ml) 10 ml IV BID MARINO Sodium Chloride (Sodium Chloride Flush Syringe 10 Ml) 10 ml IV PRN PRN PRN Reason: LINE FLUSH Review of Systems All systems: negative (reviewed and no additional remarkable complaints except as noted below) Constitutional: weakness, poor appetite, other (near-syncopal event) Gastrointestinal: nausea, vomiting Endocrine: high blood sugars Exam - Physical Exam Narrative exam: Physical exam General appearance: Present: No acute distress, well-nourished, alert and oriented 3 - EENT Eyes: Present: PERRL, EOM intact ENT: hearing intact, normal dentition - Neck Neck: Present: supple, normal ROM - Respiratory Respiratory effort: Non-labored Respiratory: Clear throughout - Cardiovascular Heart rate: 81 (bpm) Rhythm: regular Heart Sounds: Present: S1 & S2. Absent: rub, click - Extremities Extremities: no ischemia, pulses intact, abnormal (right upper chest port ) - Peripheral Assessment Peripheral Pulses: within normal limits - Abdominal General gastrointestinal: soft, non-tender, normal bowel sounds - Integumentary Integumentary: Present: warm, dry - Musculoskeletal Musculoskeletal: Able to move all extremities - Psychiatric Psychiatric: cooperative - Constitutional Vitals: Temp Pulse Resp BP Pulse Ox 98.6 F 81 16 104/71 99 11/07/18 16:21 11/07/18 20:08 11/07/18 20:08 11/07/18 20:08 11/07/18 20:08 Results - Labs CBC & Chem 7: 11/07/18 16:31 11/07/18 21:07 Labs: Laboratory Last Values WBC 5.4 K/mm3 (4.5-11.0) 11/07/18 16:31 RBC 3.76 M/mm3 (3.65-5.03) 11/07/18 16:31 Hgb 10.2 gm/dl (10.1-14.3) 11/07/18 16:31 Hct 32.4 % (30.3-42.9) 11/07/18 16:31 MCV 86 fl (79-97) 11/07/18 16:31 MCH 27 pg (28-32) L 11/07/18 16:31 MCHC 31 % (30-34) 11/07/18 16:31 RDW 15.4 % (13.2-15.2) H 11/07/18 16:31 Plt Count 247 K/mm3 (140-440) 11/07/18 16:31 Lymph % (Auto) 18.3 % (13.4-35.0) 11/07/18 16:31 [place] % (Auto) 1.6 % (0.0-7.3) 11/07/18 16:31 Eos % (Auto) 0.5 % (0.0-4.3) 11/07/18 16:31 Baso % (Auto) 1.1 % (0.0-1.8) 11/07/18 16: Lymph # 1.0 K/mm3 (1.2-5.4) L 11/07/18 16:31 [place] # 0.1 K/mm3 (0.0-0.8) 11/07/18 16:31 Eos # 0.0 K/mm3 (0.0-0.4) 11/07/18 16: Baso # 0.1 K/mm3 (0.0-0.1) 11/07/18 16:31 Seg Neutrophils % 78.5 % (40.0-70.0) H 11/07/18 16:31 Seg Neutrophils # 4.2 K/mm3 (1.8-7.7) 11/07/18 16:31 VBG pH 7.384 (7.320-7.420) 11/07/18 16:31 Sodium 131 mmol/L (137-145) L D 11/07/18 19:30 Potassium 3.7 mmol/L (3.6-5.0) D 11/07/18 19:30 Chloride 96.5 mmol/L (98-107) L 11/07/18 19:30 Carbon Dioxide 19 mmol/L (22-30) L 11/07/18 19:30 19 mmol/L 11/07/18 19:30 BUN 15 mg/dL (7-17) 11/07/18 19:30 1.5 mg/dL (0.7-1.2) H 11/07/18 19:30 Estimated GFR 50 ml/min 11/07/18 19:30 10 % 11/07/18 19:30 Glucose 507 mg/dL (65-100) H* 11/07/18 19:30 POC Glucose 366 (70-105) H 11/07/18 20:47 Calcium 8.3 mg/dL (8.4-10.2) L 11/07/18 19:30 Phosphorus 2.60 mg/dL (2.5-4.5) 11/07/18 19:30 Magnesium 1.50 mg/dL (1.7-2.3) L 11/07/18 19:30 Amylase 41 units/L (27-131) 11/07/18 16:31 27 units/L (13-60) 11/07/18 16:31 Colorless (Yellow) 11/07/18 17:35 Clear (Clear) 11/07/18 17:35 5.0 (5.0-7.0) 11/07/18 17:35 Ur Specific [place] 1.015 (1.003-1.030) 11/07/18 17:35 <15 mg/dl mg/dL (Negative) 11/07/18 17:35 >=500 mg/dL (Negative) 11/07/18 17:35 Tr mg/dL (Negative) 11/07/18 17:35 Neg (Negative) 11/07/18 17:35 Neg (Negative) 11/07/18 17:35 Neg (Negative) 11/07/18 17:35 < 2.0 mg/dL (<2.0) 11/07/18 17:35 Ur Leukocyte Esterase Neg (Negative) 11/07/18 17:35 1.0 /HPF (0.0-6.0) 11/07/18 17:35 3.0 /HPF (0.0-6.0) 11/07/18 17:35 Few /HPF 11/07/18 17:35 Urine HCG, Qual Negative (Negative) 11/07/18 17:35 Short CBC 11/07/18 Range/Units 16:31 WBC 5.4 (4.5-11.0) K/mm3 Hgb 10.2 (10.1-14.3) gm/dl Hct 32.4 (30.3-42.9) % Plt Count 247 (140-440) K/mm3 BMP 11/07/18 11/07/18 11/07/18 16:31 19:30 21:07 Sodium 124 L 131 L D 134 L Potassium 5.9 H 3.7 D 3.6 Chloride 90.2 L 96.5 L 97.5 L Carbon Dioxide 21 L 19 L 21 L BUN 15 15 14 Creatinine 1.5 H 1.5 H 1.5 H Glucose 789 H* 507 H* 319 H Calcium 8.5 8.3 L 8.5 Urine 11/07/18 Range/Units 17:35 Urine Color Colorless (Yellow) Urine pH 5.0 (5.0-7.0) Ur Specific [place] 1.015 (1.003-1.030) Urine Protein <15 mg/dl (Negative) mg/dL Urine Glucose (UA) >=500 (Negative) mg/dL Assessment and Plan Assessment and plan: 27-year-old female with history of insulin-dependent diabetes, CAD stage II, Add ramses's, epilepsy, hypertension hypothyroidism, hypertension presents to the ED via EMS with complaints of near syncopal event and hyperglycemia. This morning patient was in the bathroom and fell like she was going to pass out. This episode was accompanied nausea and vomiting. She immediately called EMS and was transported to [facility] ED. Inital BG 789, pH 7.38, with no ketone in urine. She was placed on insulin drip. She'll be admitted to ICU. Filter Tank Tender has been consult.. Hyperosmolar hyperglycemic non-ketotic Insulin-dependent diabetes Hypertension- controlled History of epilepsy CKD stage II Hypothyroidism Dante's disease Plan: Continue supportive care Continue Hyperosmolar hyperglycemic non-ketotic protocol On insulin drip, Hydrate IVF NS@150ml/hr Monitor electrolytes Resume Keppra 500 mg twice a day, Vistaril Monitor BP IV hydralazine when necessary DVT PPX on Lovenox Advance Directives: No VTE prophylaxis?: Chemical Plan of care discussed with patient/family: Yes
[2018-11-07 21:47] LABS: Calcium 8.5 mg/dL (8.4-10.2)
[2018-11-07] MEDS ORDERED: COLACE ONE (22:02)
[2018-11-07] MEDS ORDERED: KEPPRA PO ONE (22:02)
[2018-11-07] MEDS: SODIUM CHLORIDE FLUSH SYRINGE 10 ML IV SCH (22:02)
[2018-11-07] MEDS: KEPPRA PO SCH (22:02)
[2018-11-07] MEDS: COLACE PO SCH (22:02)
[2018-11-07] MEDS ORDERED: APRESOLINE IV PRN (22:10)
[2018-11-07] MEDS: D50W (25GM) Syringe IV PRN (23:56)
[2018-11-08 00:14] LABS: Calcium 8.9 mg/dL (8.4-10.2)
[2018-11-08] MEDS: D50W (25GM) Syringe IV PRN ×2 (00:45→02:51)
[2018-11-08 01:27] LABS: Calcium 8.2 mg/dL (8.4-10.2)
[2018-11-08] MEDS: NACL 0.9% 1000 ML 1,000 ML IV SCH ×2 (02:02→14:31)
[2018-11-08] MEDS ORDERED: NACL 0.9% 1000 ML 1,000 ML ONE ×2 (02:06→02:21)
[2018-11-08] MEDS ORDERED: D5W/0.45% NACL/KCL 20 MEQ 20 MEQ/1,000 ML BAG IV SCH (08:00)
[2018-11-08] MEDS ORDERED: SERTRALINE HCL 25 MG PO SCH (10:00)
[2018-11-08] MEDS: VISTARIL PO SCH (11:53)
[2018-11-08] MEDS: SYNTHROID PO SCH (11:53)
[2018-11-08] MEDS: KEPPRA PO SCH ×2 (11:53→22:10)
[2018-11-08] MEDS: SODIUM CHLORIDE FLUSH SYRINGE 10 ML IV SCH ×2 (11:54→22:15)
[2018-11-08] MEDS: ZOLOFT PO SCH (11:54)
[2018-11-08] MEDS: COLACE PO SCH ×2 (11:59→22:10)
--- NOTE | 2018-11-08 12:11 | Progress Note ---
Assessment and Plan Assessment and plan: 27-year-old female with history of insulin-dependent diabetes, CAD stage II, Clarissa's, epilepsy, hypertension hypothyroidism, hypertension presents to the ED via EMS with complaints of near syncopal event and hyperglycemia. This morning patient was in the bathroom and fell like she was going to pass out. This episode was accompanied nausea and vomiting. She immediately called EMS and was transported to [facility] ED. Inital BG 789, pH 7.38, with no ketone in urine. She was placed on insulin drip. 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 --DVT prophylaxis; Lovenox Monitor patient closely and adjust management as needed Patient is stable to be transferred out of ICU to telemetry/medical floor Possible discharge in 1-2 days if stable Critical care time 31 minutes History Interval history: Patient seen and examined medical records reviewed Patient feels better no new complaints Blood sugars on the lower range on insulin drip No new events reported by the nursing Vital signs noted Hospitalist Physical - Constitutional Vitals: Temp Pulse Resp BP Pulse Ox 98.6 F 60 11 L 112/80 99 11/07/18 16:21 11/08/18 08:46 11/08/18 08:46 11/08/18 08:46 11/08/18 08:46 General appearance: Present: no acute distress, well-nourished - EENT Eyes: Present: PERRL, EOM intact - Neck Neck: Present: supple, normal ROM - Respiratory Respiratory effort: normal Respiratory: bilateral: diminished, negative: rales, rhonchi, wheezing - Cardiovascular Rhythm: regular Heart Sounds: Present: S1 & S2 - Extremities Extremities: no ischemia, No edema - Abdominal General gastrointestinal: soft, non-tender, non-distended, normal bowel sounds - Integumentary Integumentary: Present: clear, warm - Psychiatric Psychiatric: appropriate mood/affect, cooperative - Neurologic Neurologic: CNII-XII intact, moves all extremities Results - Labs CBC & Chem 7: 11/07/18 16:31 11/08/18 11:45 Labs: Laboratory Last Values WBC 5.4 K/mm3 (4.5-11.0) 11/07/18 16:31 RBC 3.76 M/mm3 (3.65-5.03) 11/07/18 16:31 Hgb 10.2 gm/dl (10.1-14.3) 11/07/18 16:31 Hct 32.4 % (30.3-42.9) 11/07/18 16:31 MCV 86 fl (79-97) 11/07/18 16: MCH 27 pg (28-32) L 11/07/18 16:31 MCHC 31 % (30-34) 11/07/18 16:31 RDW 15.4 % (13.2-15.2) H 11/07/18 16:31 Plt Count 247 K/mm3 (140-440) 11/07/18 16:31 Lymph % (Auto) 18.3 % (13.4-35.0) 11/07/18 16:31 [place] % (Auto) 1.6 % (0.0-7.3) 11/07/18 16:31 Eos % (Auto) 0.5 % (0.0-4.3) 11/07/18 16:31 Baso % (Auto) 1.1 % (0.0-1.8) 11/07/18 16:31 Lymph # 1.0 K/mm3 (1.2-5.4) L 11/07/18 16:31 [place] # 0.1 K/mm3 (0.0-0.8) 11/07/18 16:31 Eos # 0.0 K/mm3 (0.0-0.4) 11/07/18 16:31 Baso # 0.1 K/mm3 (0.0-0.1) 11/07/18 16:31 Seg Neutrophils % 78.5 % (40.0-70.0) H 11/07/18 16:31 Seg Neutrophils # 4.2 K/mm3 (1.8-7.7) 11/07/18 16:31 VBG pH 7.384 (7.320-7.420) 11/07/18 16:31 Sodium 138 mmol/L (137-145) 11/08/18 00:49 Potassium 3.6 mmol/L (3.6-5.0) 11/08/18 00:49 Chloride 104.6 mmol/L (98-107) 11/08/18 00:49 Carbon Dioxide 24 mmol/L (22-30) 11/08/18 00:49 13 mmol/L 11/08/18 00:49 BUN 13 mg/dL (7-17) 11/08/18 00:49 1.3 mg/dL (0.7-1.2) H 11/08/18 00:49 Estimated GFR 59 ml/min 11/08/18 00:49 10 % 11/08/18 00:49 Glucose 202 mg/dL (65-100) H 11/08/18 00:49 POC Glucose 50 (70-105) L 11/08/18 11:46 11.6 % (4-6) H 11/07/18 21:07 Calcium 8.2 mg/dL (8.4-10.2) L 11/08/18 00:49 Phosphorus 2.10 mg/dL (2.5-4.5) L 11/07/18 21:07 Magnesium 1.50 mg/dL (1.7-2.3) L 11/07/18 21:07 Amylase 41 units/L (27-131) 11/07/18 16:31 27 units/L (13-60) 11/07/18 16:31 Colorless (Yellow) 11/07/18 17:35 Clear (Clear) 11/07/18 17:35 5.0 (5.0-7.0) 11/07/18 17:35 Ur Specific [place] 1.015 (1.003-1.030) 11/07/18 17:35 <15 mg/dl mg/dL (Negative) 11/07/18 17:35 >=500 mg/dL (Negative) 11/07/18 17:35 Tr mg/dL (Negative) 11/07/18 17:35 Neg (Negative) 11/07/18 17:35 Neg (Negative) 11/07/18 17:35 Neg (Negative) 11/07/18 17:35 < 2.0 mg/dL (<2.0) 11/07/18 17:35 Ur Leukocyte Esterase Neg (Negative) 11/07/18 17:35 1.0 /HPF (0.0-6.0) 11/07/18 17:35 3.0 /HPF (0.0-6.0) 11/07/18 17:35 Few /HPF 11/07/18 17:35 Urine HCG, Qual Negative (Negative) 11/07/18 17:35 Active Medications - Current Medications Current Medications: Generic Name Dose Route Start Last Admin Trade Name Freq PRN Reason Stop Dose Admin Acetaminophen 650 mg 11/07/18 20:10 Tylenol PO Q4H PRN Pain MILD(1-3)/Fever >100.5/STEWARD Atorvastatin Calcium 40 mg 11/07/18 22:00 11/07/18 22:02 Lipitor PO 40 mg QHS MARINO Administration Dextrose 0 ml 11/07/18 18:21 11/08/18 02:51 D50w (25gm) Syringe IV 15 ml ONCE PRN Administration Hypoglycemia Docusate Sodium 100 mg 11/07/18 22:00 11/08/18 11:59 Colace PO Not Given BID MARINO Enoxaparin Sodium 40 mg 11/08/18 22:00 Lovenox SUB-Q QDAY@2200 MARINO Hydralazine HCl 10 mg 11/07/18 22:10 Apresoline IV Q4HR PRN Blood Pressure Hydromorphone HCl 0.5 mg 11/07/18 20:10 Dilaudid IV 11/09/18 23:59 Q3H PRN Pain , Severe (7-10) Hydroxyzine Pamoate 25 mg 11/08/18 10:00 11/08/18 11:53 Vistaril PO 25 mg DAILY MARINO Administration Insulin Human Regular 100 100 mls @ 6 mls/hr 11/07/18 19:00 11/08/18 10:30 units/ Sodium Chloride IV 0 units/hr TITR MARINO 0 mls/hr Titration Protocol 6 UNITS/HR Sodium Chloride 1,000 mls @ 150 mls/hr 11/07/18 21:00 11/08/18 08:25 Nacl 0.9% 1000 Ml IV 0 mls/hr DIRECT MARINO Infusion Potassium Chloride/Dextrose/Sod Cl 20 meq in 1,000 mls @ 125 mls/hr 11/08/18 08:00 11/08/18 08:25 D5w/0.45% Nacl/Kcl 20 Meq IV 125 mls/hr DIRECT MARINO Administration Levetiracetam 500 mg 11/07/18 22:00 11/08/18 11:53 Keppra PO 500 mg BID MARINO Administration Levothyroxine Sodium 125 mcg 11/08/18 10:00 11/08/18 11:53 Synthroid PO 125 mcg DAILY MARINO Administration Ondansetron HCl 4 mg 11/07/18 20:10 Zofran IV Q8H PRN Nausea And Vomiting Oxycodone/Acetaminophen 1 tab 11/07/18 20:10 Percocet 5/325 PO Q6H PRN Pain, Moderate (4-6) Sertraline HCl 25 mg 11/08/18 10:00 11/08/18 11:54 Zoloft PO 25 mg QDAY MARINO Administration Sodium Chloride 10 ml 11/07/18 22:00 11/08/18 11:54 Sodium Chloride Flush Syringe 10 Ml IV 10 ml BID MARINO Administration Sodium Chloride 10 ml 11/07/18 20:10 Sodium Chloride Flush Syringe 10 Ml IV PRN PRN LINE FLUSH Nutrition/Malnutrition Assess - Dietary Evaluation Nutrition/Malnutrition Findings: Nutrition Notes Start: 11/08/18 10:29 Freq: Status: Active Protocol: Document 11/08/18 10:29 RD (Rec: 11/08/18 10:33 RD [id number]) Co-Sign 11/08/18 10:29 LP Nutrition Notes Need for Assessment generated from: MD Order Initial or Follow up Brief Note Height 4 ft 11 in Weight 62.142 kg [facility] Body Weight (kg) 43.18 BMI 27.6 Subjective/Other Information RD screen for diet DKA education. Pt did not want to be educated at time of visit, pt wanted to take a nap. Will educate on another day. Nutrition Intervention Follow-Up By: 11/10/18 Additional Comments f/u: DKA education
[2018-11-08 12:39] LABS: BUN/Creatinine Ratio 9; Blood Urea Nitrogen 10 mg/dL (7-17); Calcium 7.6 mg/dL (8.4-10.2); Hemolysis Index 2
--- NOTE | 2018-11-08 12:50 | Consultation ---
History of Present Illness - Reason for Consult Consult date: 11/08/18 Hyperglycemia Requesting physician: ALONSO ORLANDO - History of Present Illness 27 y/o female admitted with elevated blood sugar. Patient with known insulin dependent diabetes. Likely type 1. Started on Insulin drip as AG was 19. Currently off and eating lunch. Past History Past Medical History: diabetes, hypertension, hypothyroidism, seizures, other (CKD stage II, Dante's disease) Past Surgical History: appendectomy, cholecystectomy Social history: other (former smoker quit over 6 years ago) Family history: no significant family history Medications and Allergies Allergies Allergy/AdvReac Type Severity Reaction Status Date / Time Penicillins Allergy Angioedema Verified 09/20/18 15:10 vortioxetine Allergy Unknown Verified 09/20/18 15:10 [From Trintellix] ziprasidone [From Geodon] Allergy Angioedema Verified 09/20/18 15:10 vancomycin AdvReac Itching Verified 09/20/18 15:10 Home Medications Medication Instructions Recorded Confirmed Last Taken Type Butalb/Acetamin/Caff 50-325-40 1 tab PO Q6HR PRN 09/23/18 10/22/18 Unknown History [Fioricet] Cyanocobalamin (Vitamin B-12) 0 mcg PO CONT 09/23/18 10/22/18 Unknown History [Vitamin B12] Fludrocortisone [Florinef] 0.1 mg PO QDAY 09/23/18 10/22/18 Unknown History Hydrocortisone [Cortef TAB] 10 mg PO DAILY 09/23/18 10/22/18 Unknown History Insulin Regular, Human [Humulin R] See Protocol SC [facility] 09/23/18 10/22/18 Unknown History Levothyroxine Sodium [Synthroid] 125 mcg PO DAILY 09/23/18 10/22/18 Unknown History Sertraline HCl [Zoloft] 25 mg PO DAILY 09/23/18 10/22/18 09/20/18 History hydrOXYzine PAMOATE [Vistaril] 25 mg PO DAILY 09/23/18 10/22/18 Unknown History AtorvaSTATin [Lipitor] 40 mg PO QHS #30 tab 09/24/18 10/22/18 Unknown Rx Insulin NPH, Human [NovoLIN N] 8 unit SUB-Q BIDDIAB #1 vial 09/24/18 10/22/18 Unknown Rx Ondansetron [Zofran Odt] 4 mg PO Q8HR PRN #21 tab.rapdis 10/26/18 Unknown Rx levETIRAcetam [Keppra TAB] 500 mg PO BID #60 tablet 10/26/18 Unknown Rx Active Meds: Active Medications Acetaminophen (Tylenol) 650 mg PO Q4H PRN PRN Reason: Pain MILD(1-3)/Fever >100.5/STEWARD Atorvastatin Calcium (Lipitor) 40 mg PO QHS [facility] Last Admin: 11/07/18 22:02 Dose: 40 mg Documented by: Dextrose (D50w (25gm) Syringe) 0 ml IV ONCE PRN PRN Reason: Hypoglycemia Last Admin: 11/08/18 02:51 Dose: 15 ml Documented by: Docusate Sodium (Colace) 100 mg PO BID [facility] Last Admin: 11/08/18 11:59 Dose: Not Given Documented by: Enoxaparin Sodium (Lovenox) 40 mg SUB-Q QDAY@2200 [facility] Hydralazine HCl (Apresoline) 10 mg IV Q4HR PRN PRN Reason: Blood Pressure Hydromorphone HCl (Dilaudid) 0.5 mg IV Q3H PRN PRN Reason: Pain , Severe (7-10) Stop: 11/09/18 23:59 Hydroxyzine Pamoate (Vistaril) 25 mg PO DAILY [facility] Last Admin: 11/08/18 11:53 Dose: 25 mg Documented by: Sodium Chloride (Nacl 0.9% 1000 Ml) 1,000 mls @ 150 mls/hr IV DIRECT [facility] Last Infusion: 11/08/18 08:25 Dose: 0 mls/hr Documented by: Magnesium Sulfate (Magnesium Sulfate 2gm/50ml) 2 gm in 50 mls @ 25 mls/hr IV ONCE ONE Stop: 11/08/18 14:59 Insulin Human Lispro (Humalog) 0 unit SUB-Q ACHS [facility]; Protocol Levetiracetam (Keppra) 500 mg PO BID [facility] Last Admin: 11/08/18 11:53 Dose: 500 mg Documented by: Levothyroxine Sodium (Synthroid) 125 mcg PO DAILY [facility] Last Admin: 11/08/18 11:53 Dose: 125 mcg Documented by: Ondansetron HCl (Zofran) 4 mg IV Q8H PRN PRN Reason: Nausea And Vomiting Oxycodone/Acetaminophen (Percocet 5/325) 1 tab PO Q6H PRN PRN Reason: Pain, Moderate (4-6) Sertraline HCl (Zoloft) 25 mg PO QDAY [facility] Last Admin: 11/08/18 11:54 Dose: 25 mg Documented by: Sodium Chloride (Sodium Chloride Flush Syringe 10 Ml) 10 ml IV BID [facility] Last Admin: 11/08/18 11:54 Dose: 10 ml Documented by: Sodium Chloride (Sodium Chloride Flush Syringe 10 Ml) 10 ml IV PRN PRN PRN Reason: LINE FLUSH Review of Systems All systems: negative Exam - Constitutional Vitals: Temp Pulse Resp BP Pulse Ox 97.7 F 70 13 99/73 100 11/08/18 12:00 11/08/18 12:00 11/08/18 12:00 11/08/18 12:00 11/08/18 11:46 General appearance: Present: no acute distress - EENT Eyes: Present: PERRL, EOM intact ENT: hearing intact, clear oral mucosa - Neck Neck: Present: supple, normal ROM - Respiratory Respiratory effort: normal Respiratory: bilateral: CTA - Cardiovascular Rhythm: regular Heart Sounds: Present: S1 & S2 - Extremities Extremities: no ischemia, pulses intact - Abdominal General gastrointestinal: Present: soft, non-tender Results - Labs CBC & Chem 7: 11/07/18 16:31 11/08/18 11:45 Labs: Abnormal lab results 11/07/18 11/07/18 11/07/18 Range/Units 16:31 16:31 19:28 MCH 27 L (28-32) pg RDW 15.4 H (13.2-15.2) % Lymph # 1.0 L (1.2-5.4) K/mm3 Seg Neutrophils % 78.5 H (40.0-70.0) % Sodium 124 L (137-145) mmol/L Potassium 5.9 H (3.6-5.0) mmol/L Chloride 90.2 L (98-107) mmol/L Carbon Dioxide 21 L (22-30) mmol/L Creatinine 1.5 H (0.7-1.2) mg/dL Glucose 789 H* (65-100) mg/dL POC Glucose > 500 H (70-105) Hemoglobin A1c (4-6) % Calcium (8.4-10.2) mg/dL Phosphorus (2.5-4.5) mg/dL Magnesium (1.7-2.3) mg/dL 11/07/18 11/07/18 11/07/18 Range/Units 19:30 19:30 20:47 MCH (28-32) pg RDW (13.2-15.2) % Lymph # (1.2-5.4) K/mm3 Seg Neutrophils % (40.0-70.0) % Sodium 131 L D (137-145) mmol/L Potassium (3.6-5.0) mmol/L Chloride 96.5 L (98-107) mmol/L Carbon Dioxide 19 L (22-30) mmol/L Creatinine 1.5 H (0.7-1.2) mg/dL Glucose 507 H* (65-100) mg/dL POC Glucose 366 H (70-105) Hemoglobin A1c (4-6) % Calcium 8.3 L (8.4-10.2) mg/dL Phosphorus (2.5-4.5) mg/dL Magnesium 1.50 L (1.7-2.3) mg/dL 11/07/18 11/07/18 11/07/18 Range/Units 21:07 21:07 21:07 MCH (28-32) pg RDW (13.2-15.2) % Lymph # (1.2-5.4) K/mm3 Seg Neutrophils % (40.0-70.0) % Sodium 134 L (137-145) mmol/L Potassium (3.6-5.0) mmol/L Chloride 97.5 L (98-107) mmol/L Carbon Dioxide 21 L (22-30) mmol/L Creatinine 1.5 H (0.7-1.2) mg/dL Glucose 319 H (65-100) mg/dL POC Glucose (70-105) Hemoglobin A1c 11.6 H (4-6) % Calcium (8.4-10.2) mg/dL Phosphorus 2.10 L (2.5-4.5) mg/dL Magnesium 1.50 L (1.7-2.3) mg/dL 11/07/18 11/07/18 11/07/18 Range/Units 21:46 22:45 23:26 MCH (28-32) pg RDW (13.2-15.2) % Lymph # (1.2-5.4) K/mm3 Seg Neutrophils % (40.0-70.0) % Sodium (137-145) mmol/L Potassium 3.5 L (3.6-5.0) mmol/L Chloride (98-107) mmol/L Carbon Dioxide 21 L (22-30) mmol/L Creatinine 1.3 H (0.7-1.2) mg/dL Glucose (65-100) mg/dL POC Glucose 278 H 134 H (70-105) Hemoglobin A1c (4-6) % Calcium (8.4-10.2) mg/dL Phosphorus (2.5-4.5) mg/dL Magnesium (1.7-2.3) mg/dL 11/07/18 11/08/18 11/08/18 Range/Units 23:47 00:49 00:49 [facility] (28-32) pg RDW (13.2-15.2) % Lymph # (1.2-5.4) K/mm3 Seg Neutrophils % (40.0-70.0) % Sodium (137-145) mmol/L Potassium (3.6-5.0) mmol/L Chloride (98-107) mmol/L Carbon Dioxide (22-30) mmol/L Creatinine 1.3 H (0.7-1.2) mg/dL Glucose 202 H (65-100) mg/dL POC Glucose 40 L 48 L (70-105) Hemoglobin A1c (4-6) % Calcium 8.2 L (8.4-10.2) mg/dL Phosphorus (2.5-4.5) mg/dL Magnesium (1.7-2.3) mg/dL 11/08/18 11/08/18 11/08/18 Range/Units 02:54 05:04 07:46 [facility] (28-32) pg RDW (13.2-15.2) % Lymph # (1.2-5.4) K/mm3 Seg Neutrophils % (40.0-70.0) % Sodium (137-145) mmol/L Potassium (3.6-5.0) mmol/L Chloride (98-107) mmol/L Carbon Dioxide (22-30) mmol/L Creatinine (0.7-1.2) mg/dL Glucose (65-100) mg/dL POC Glucose 63 L 111 H 43 L (70-105) Hemoglobin A1c (4-6) % Calcium (8.4-10.2) mg/dL Phosphorus (2.5-4.5) mg/dL Magnesium (1.7-2.3) mg/dL 11/08/18 11/08/18 11/08/18 Range/Units 08:16 09:31 11:45 MCH (28-32) pg RDW (13.2-15.2) % Lymph # (1.2-5.4) K/mm3 Seg Neutrophils % (40.0-70.0) % Sodium (137-145) mmol/L Potassium 3.5 L (3.6-5.0) mmol/L Chloride 108.6 H (98-107) mmol/L Carbon Dioxide (22-30) mmol/L Creatinine (0.7-1.2) mg/dL Glucose 51 L (65-100) mg/dL POC Glucose 166 H 134 H (70-105) Hemoglobin A1c (4-6) % Calcium 7.6 L (8.4-10.2) mg/dL Phosphorus (2.5-4.5) mg/dL Magnesium (1.7-2.3) mg/dL 11/08/18 Range/Units 11:46 MCH (28-32) pg RDW (13.2-15.2) % Lymph # (1.2-5.4) K/mm3 Seg Neutrophils % (40.0-70.0) % Sodium (137-145) mmol/L Potassium (3.6-5.0) mmol/L Chloride (98-107) mmol/L Carbon Dioxide (22-30) mmol/L Creatinine (0.7-1.2) mg/dL Glucose (65-100) mg/dL POC Glucose 50 L (70-105) Hemoglobin A1c (4-6) % Calcium (8.4-10.2) mg/dL Phosphorus (2.5-4.5) mg/dL Magnesium (1.7-2.3) mg/dL Assessment and Plan 27 y/o female, admitted with DKA 1. Resolution of DKA, off insulin drip 2. Suggest restarting home dose of insulin and monitor while in house 3. 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 Stable for transfer out of unit, will sign off once on floor.
[2018-11-08] MEDS ORDERED: MAGNESIUM SULFATE 2GM/50ML 2 GM/50 ML BAG IV ONE (13:00)
[2018-11-08] MEDS: HumaLOG SUB-Q SCH ×2 (18:09→22:12)
[2018-11-08 19:17] LABS: BUN/Creatinine Ratio 8; Blood Urea Nitrogen 10 mg/dL (7-17); Calcium 7.8 mg/dL (8.4-10.2); Hemolysis Index 1
[2018-11-08] MEDS ORDERED: LOVENOX SUB-Q SCH (22:00)
[2018-11-09] MEDS: NACL 0.9% 1000 ML 1,000 ML IV SCH ×2 (01:03→07:27)
[2018-11-09] MEDS: HumaLOG SUB-Q SCH ×3 (08:27→17:39)
[2018-11-09] MEDS: SYNTHROID PO SCH (09:27)
[2018-11-09] MEDS: COLACE PO SCH (09:28)
[2018-11-09] MEDS: KEPPRA PO SCH (09:28)
[2018-11-09] MEDS: SODIUM CHLORIDE FLUSH SYRINGE 10 ML IV SCH (09:29)
[2018-11-09] MEDS: VISTARIL PO SCH (09:29)
[2018-11-09] MEDS: ZOLOFT PO SCH (09:29)
[2018-11-09] MEDS ORDERED: CORTEF PO SCH (10:00)
[2018-11-09] MEDS ORDERED: FLORINEF PO SCH (10:00)
--- NOTE | 2018-11-09 11:06 | Discharge Summary ---
Providers - Providers Date of Admission: 11/07/18 18:25 Date of discharge: 11/09/18 Attending physician: ALONSO ORLANDO 11/07/18 20:10 Consult to Dietitian/Nutrition [CONS] Routine Physician Instructions: Reason For Exam: DKA Reason for Consult: Nutrition Recommendations Reason for Consult: Diet education 11/07/18 20:11 Consult to Physician [CONS] Routine Comment: Consulting Provider: SHWETA NARANJO Physician Instructions: Reason For Exam: icu admission hyperosmolar hypergylcemic nonketoti Primary care physician: ZANDRA GODFREY Hospitalization Reason for admission: Near syncope and hyperglycemia Condition: Fair Hospital course: 27-year-old female with history of insulin-dependent diabetes, CAD stage II, [place]'s, epilepsy, hypertension hypothyroidism, hypertension was admitted through ED with complaints of near syncopal event and hyperglycemia. This morning patient was in the bathroom and fell like she was going to pass out. This episode was accompanied nausea and vomiting. She immediately called EMS and was transported to [facility] ED. Inital BG 789, pH 7.38, with no ketone in urine. She was placed on insulin drip. Blood sugars brought to reasonable levels Discharge Diagnosis: --Hyperosmolar hyperglycemic non-ketotic state; Received insulin drip, blood sugars in the low range, DC'd drip Accu-Chek sliding scale coverage ADA diet Diabetic education and nutrition consult --Insulin-dependent diabetes; resume her medication and regimen --Hypertension; moderate control, continue current antihypertensives and when necessary medications --History of seizures; seizure precautions, continue Keppra --Acute kidney injury; present on admission secondary to ATN Gentle IV hydration, completely resolved today --Hypothyroidism: Continue Synthroid --[place]'s disease: Resume home medications --DVT prophylaxis; Lovenox Stable at discharge Disposition: DC-01 TO HOME OR SELFCARE Time spent for discharge: 32 min Core Measure Documentation - Palliative Care Palliative Care/ Comfort Measures: Not Applicable - Core Measures Any of the following diagnoses?: none Exam - Constitutional Vitals: Temp Pulse Resp BP Pulse Ox 99.8 F H 92 H 24 90/46 100 11/08/18 22:19 11/08/18 22:17 11/08/18 22:19 11/08/18 22:19 11/08/18 22:17 General appearance: Present: no acute distress, well-nourished - EENT Eyes: Present: PERRL, EOM intact - Neck Neck: Present: supple, normal ROM - Respiratory Respiratory effort: normal Respiratory: bilateral: diminished, negative: rales, rhonchi, wheezing - Cardiovascular Rhythm: regular Heart Sounds: Present: S1 & S2 - Extremities Extremities: no ischemia, No edema - Abdominal General gastrointestinal: Present: soft, non-tender, non-distended, normal bowel sounds - Integumentary Integumentary: Present: clear, warm - Musculoskeletal Musculoskeletal: strength equal bilaterally, generalized weakness - Psychiatric Psychiatric: appropriate mood/affect, cooperative - Neurologic Neurologic: moves all extremities Plan Activity: no restrictions, no driving until cleared by PCP Diet: diabetic Additional Instructions: Seizure precautions Follow up with: ZAINA LONDONO MD [Referring] - 3-5 Days
--- NOTE | 2018-11-09 13:12 | Progress Note ---
Assessment and Plan 27 y/o female, admitted with DKA 1. Will sign off. Call if questions. Subjective Date of service: 11/09/18 Interval history: No acute events. Transitioned out of ICU and stable. Objective - Constitutional Vitals: Vital Signs - 12hr 11/09/18 04:58 Temperature 97.7 F Pulse Rate 96 H Respiratory 20 Rate Blood Pressure 100/64 O2 Sat by Pulse 97 Oximetry - Labs CBC & Chem 7: 11/07/18 16:31 11/08/18 Unknown Labs: Abnormal lab results 11/08/18 11/08/18 11/08/18 Range/Units 16:51 20:54 Unknown Carbon Dioxide 20 L (22-30) mmol/L Glucose 410 H (65-100) mg/dL POC Glucose 333 H 275 H (70-105) Calcium 7.8 L (8.4-10.2) mg/dL 11/09/18 11/09/18 Range/Units 07:34 11:15 Carbon Dioxide (22-30) mmol/L Glucose (65-100) mg/dL POC Glucose 230 H 114 H (70-105) Calcium (8.4-10.2) mg/dL Medications & Allergies - Medications Allergies/Adverse Reactions: Allergies Penicillins Allergy (Verified 09/20/18 15:10) Angioedema vortioxetine [From Trintellix] Allergy (Verified 09/20/18 15:10) Unknown ziprasidone [From Geodon] Allergy (Verified 09/20/18 15:10) Angioedema vancomycin Adverse Reaction (Verified 09/20/18 15:10) Itching Home Medications: Home Medications Medication Instructions Recorded Confirmed Last Taken Type Butalb/Acetamin/Caff 50-325-40 1 tab PO Q6HR PRN 09/23/18 11/08/18 Unknown History [Fioricet] Cyanocobalamin (Vitamin B-12) 0 mcg PO DAILY 09/23/18 11/08/18 11/07/18 History [Vitamin B12] Fludrocortisone [Florinef] 0.1 mg PO QDAY 09/23/18 11/08/18 11/07/18 History Hydrocortisone [Cortef TAB] 10 mg PO DAILY 09/23/18 11/08/18 11/07/18 History Insulin Regular, Human [Humulin R] See Protocol [facility] 09/23/18 11/08/18 Unknown History Levothyroxine Sodium [Synthroid] 125 mcg PO DAILY 09/23/18 11/08/18 11/08/18 History Sertraline HCl [Zoloft] 25 mg PO DAILY 09/23/18 11/08/18 11/08/18 History hydrOXYzine PAMOATE [Vistaril] 25 mg PO TID 09/23/18 11/08/18 11/08/18 History AtorvaSTATin [Lipitor] 40 mg PO QHS #30 tab 09/24/18 11/08/18 11/06/18 Rx Ondansetron [Zofran ODT TAB] 4 mg PO Q8HR PRN #21 tab.rapdis 10/26/18 11/08/18 11/07/18 Rx levETIRAcetam [Keppra TAB] 500 mg PO BID #60 tablet 10/26/18 11/08/18 11/08/18 Rx Active Medications: Generic Name Dose Route Start Last Admin Trade Name Freq PRN Reason Stop Dose Admin Acetaminophen 650 mg 11/07/18 20:10 Tylenol PO Q4H PRN Pain MILD(1-3)/Fever >100.5/STEWARD Atorvastatin Calcium 40 mg 11/07/18 22:00 11/08/18 22:10 Lipitor PO 40 mg QHS [facility] Administration Dextrose 0 ml 11/07/18 18:21 11/08/18 02:51 D50w (25gm) Syringe IV 15 ml ONCE PRN Administration Hypoglycemia Docusate Sodium 100 mg 11/07/18 22:00 11/09/18 09:28 Colace PO 100 mg BID [facility] Administration Enoxaparin Sodium 40 mg 11/08/18 22:00 11/08/18 22:16 Lovenox SUB-Q Not Given QDAY@2200 [facility] Fludrocortisone Acetate 0.1 mg 11/09/18 10:00 Florinef PO QDAY [facility] Hydralazine HCl 10 mg 11/07/18 22:10 Apresoline IV Q4HR PRN Blood Pressure Hydrocortisone Acetate 10 mg 11/09/18 10:00 11/09/18 09:29 Cortef PO 10 mg DAILY [facility] Administration Hydromorphone HCl 0.5 mg 11/07/18 20:10 Dilaudid IV 11/09/18 23:59 Q3H PRN Pain , Severe (7-10) Hydroxyzine Pamoate 25 mg 11/08/18 10:00 11/09/18 09:29 Vistaril PO 25 mg DAILY [facility] Administration Sodium Chloride 1,000 mls @ 150 mls/hr 11/07/18 21:00 11/09/18 07:27 Nacl 0.9% 1000 Ml IV 150 mls/hr DIRECT [facility] Administration Insulin Human Lispro 0 unit 11/08/18 16:30 11/09/18 08:27 Humalog SUB-Q 3 unit ACHS [facility] Administration Protocol Levetiracetam 500 mg 11/07/18 22:00 11/09/18 09:28 Keppra PO 500 mg BID [facility] Administration Levothyroxine Sodium 125 mcg 11/08/18 10:00 11/09/18 09:27 Synthroid PO 125 mcg DAILY [facility] Administration Ondansetron HCl 4 mg 11/07/18 20:10 Zofran IV Q8H PRN Nausea And Vomiting Oxycodone/Acetaminophen 1 tab 11/07/18 20:10 Percocet 5/325 PO Q6H PRN Pain, Moderate (4-6) Sertraline HCl 25 mg 11/08/18 10:00 11/09/18 09:29 Zoloft PO 25 mg QDAY [facility] Administration Sodium Chloride 10 ml 11/07/18 22:00 11/09/18 09:29 Sodium Chloride Flush Syringe 10 Ml IV 10 ml BID [facility] Administration Sodium Chloride 10 ml 11/07/18 20:10 Sodium Chloride Flush Syringe 10 Ml IV PRN PRN LINE FLUSH
[2018-11-09] MEDS ORDERED: TRIPLE ANTIBIOTIC TP ONE (16:00)
[2018-11-09] MEDS ORDERED: FLUSH HEPARIN IV ONE (16:00)
[2018-11-09 17:34] VITALS: BP 92/56
== END 2018-11-09 18:00 | disposition home or self-care (01) | DRG 637 ==
LOC: ED 15:59 → CC1 18:25 → 3A 11-08 17:19
PROVIDERS: ADMIT Internal Medicine; ATTEND Internal Medicine
DX: E11.10 Type 2 diabetes mellitus with ketoacidosis without coma (principal); N17.0 Acute kidney failure with tubular necrosis; E27.1 Primary adrenocortical insufficiency; E87.5 Hyperkalemia; I12.9 Hypertensive chronic kidney disease with stage 1 through stage 4 chronic kidney disease, or unspecified chronic kidney disease; N18.2 Chronic kidney disease, stage 2 (mild); G40.909 Epilepsy, unspecified, not intractable, without status epilepticus; E11.22 Type 2 diabetes mellitus with diabetic chronic kidney disease; E03.9 Hypothyroidism, unspecified; Z90.49 Acquired absence of other specified parts of digestive tract; Z87.891 Personal history of nicotine dependence; Z88.0 Allergy status to penicillin; Z88.1 Allergy status to other antibiotic agents; Z79.4 Long term (current) use of insulin; Z79.899 Other long term (current) drug therapy; Z88.8 Allergy status to other drugs, medicaments and biological substances
CPT/HCPCS: 36415; 80048; 81001; 81025; 82150; 82805; 82962; 83036; 83690; 83735; 84100; 85025; 87116; G0378; A6250; A9270-GY; J1642; J1650; J1815; J2405; J3475; J7030; Q0177

== ENCOUNTER 2018-11-17 11:11 | Inpatient (IN) | payer MEDICAID ==
[2018-11-17] MEDS ORDERED: NACL 0.9% 1000 ML 1,000 ML ONE (13:00)
[2018-11-17] MEDS ORDERED: NACL 0.9% 1000 ML 1,000 ML IV ONE ×3 (13:00→15:27)
[2018-11-17] MEDS ORDERED: ZOFRAN IV ONE (13:00)
[2018-11-17] MEDS ORDERED: CLEOCIN 600 MG/50 mL 600 MG/50 ML BAG IV ONE (13:01)
[2018-11-17] MEDS ORDERED: MERREM 1,000 MG in NACL 0.9% 100 ML IV ONE (14:00)
[2018-11-17 14:06] LABS: INR 1.05 (0.87-1.13)
[2018-11-17 14:07] LABS: Partial Thromboplastin Time 44.1 Sec. (24.2-36.6)
[2018-11-17 14:17] LABS: Alanine Aminotransferase 280 units/L (7-56); Albumin 3.9 g/dL (3.9-5); BUN/Creatinine Ratio 17; Blood Urea Nitrogen 25 mg/dL (7-17); Calcium 8.7 mg/dL (8.4-10.2); Hemolysis Index 1
[2018-11-17 14:23] LABS: Bilirubin,Direct < 0.2 mg/dL (0-0.2)
[2018-11-17 14:24] LABS: Creatine Kinase MB < 1.0 ng/mL (0.0-4.0)
--- NOTE | 2018-11-17 15:02 | XRay Report ---
AP CHEST: HISTORY: Hypertension AP view of the chest demonstrates a normal mediastinal and cardiac contour with clear lungs and normal bony and soft tissue structures. Small bore central venous catheter or other cardiac lead overlies the mediastinum, correlating with the patient. IMPRESSION: No acute cardiopulmonary process.
--- NOTE | 2018-11-17 15:12 | Emergency Department Report ---
ED General Adult HPI - General Chief complaint: Hyperglycemia Stated complaint: HIGH BLOOD SUGAR Time Seen by Provider: 11/17/18 12:48 Source: patient, EMS Mode of arrival: Stretcher Limitations: No Limitations - History of Present Illness Initial comments: This is a 27 year old female with recent admission to this hospital. She was thought to have hyperglycemic hyperosmolar nonketotic coma/syndrome. She was admitted to the ICU and transitioned out on November 09. Patient states that for the past few days her sugar has been high. She resides at [facility]. She states that she has been vomiting. She does not complain of fever or chills. She does not complain of any acute pain. She has some ongoing nausea and feels weak. The patient states that she has had essentially MRSA sepsis and other serious bacterial illnesses in the past. She doesn't report any skin lesions or open wounds at this time. She has a chest port which is functional. Likely she has a history of significant substance abuse. The patient's Accu-Chek was found to be 305. However, her blood glucose came back as 90. 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 He appears in addition she has a psychiatric history judging from her allergy li st. -: Gradual, days(s) Severity scale (0 -10): 0 Improves with: none Worsens with: none Associated Symptoms: nausea/vomiting, weakness Treatments Prior to Arrival: other (insulin) - Related Data Home Medications Medication Instructions Recorded Confirmed Last Taken Butalb/Acetamin/Caff 50-325-40 1 tab PO Q6HR PRN 09/23/18 11/08/18 Unknown [Fioricet 50-325-40] Cyanocobalamin (Vitamin B-12) 0 mcg PO DAILY 09/23/18 11/08/18 11/07/18 [Vitamin B12] Fludrocortisone [Florinef] 0.1 mg PO QDAY 09/23/18 11/08/18 11/07/18 Hydrocortisone [Cortef TAB] 10 mg PO DAILY 09/23/18 11/08/18 11/07/18 Insulin Regular, Human [Humulin R] See Protocol SC ACHS 09/23/18 11/08/18 Unknown Levothyroxine Sodium [Synthroid] 125 mcg PO DAILY 09/23/18 11/08/18 11/08/18 Sertraline HCl [Zoloft] 25 mg PO DAILY 09/23/18 11/08/18 11/08/18 hydrOXYzine PAMOATE [Vistaril] 25 mg PO TID 09/23/18 11/08/18 11/08/18 Previous Rx's Medication Instructions Recorded Last Taken Type AtorvaSTATin [Lipitor] 40 mg PO QHS #30 tab 09/24/18 11/06/18 Rx Ondansetron [Zofran ODT TAB] 4 mg PO Q8HR PRN #21 tab.rapdis 10/26/18 11/07/18 Rx levETIRAcetam [Keppra TAB] 500 mg PO BID #60 tablet 10/26/18 11/08/18 Rx Allergies Allergy/AdvReac Type Severity Reaction Status Date / Time Penicillins Allergy Angioedema Verified 09/20/18 15:10 vortioxetine Allergy Unknown Verified 09/20/18 15:10 [From Trintellix] ziprasidone [From Geodon] Allergy Angioedema Verified 09/20/18 15:10 vancomycin AdvReac Itching Verified 09/20/18 15:10 ED Review of Systems ROS: Stated complaint: HIGH BLOOD SUGAR Other details as noted in HPI Constitutional: weakness. denies: chills, fever Eyes: denies: eye pain, eye discharge, vision change ENT: denies: ear pain, throat pain Respiratory: denies: cough, shortness of breath, wheezing Cardiovascular: denies: chest pain, palpitations Endocrine: no symptoms reported Gastrointestinal: vomiting. denies: abdominal pain, nausea, diarrhea Genitourinary: denies: urgency, dysuria, discharge Musculoskeletal: denies: back pain, joint swelling, arthralgia Skin: denies: rash, lesions Neurological: denies: headache, weakness, paresthesias Psychiatric: denies: anxiety, depression Hematological/Lymphatic: denies: easy bleeding, easy bruising ED Past Medical Hx - Past Medical History Previous Medical History?: Yes Hx Diabetes: Yes Hx Renal Disease: Yes (Stage 2) Hx Seizures: Yes Additional medical history: hypotension, hypothyroidism, Dante's disease - Surgical History Hx Cholecystectomy: Yes Hx Appendectomy: Yes Additional Surgical History: 4 - Social History Smoking Status: Never Smoker Substance Use Type: None - Medications Home Medications: Home Medications Medication Instructions Recorded Confirmed Last Taken Type Butalb/Acetamin/Caff 50-325-40 1 tab PO Q6HR PRN 09/23/18 11/08/18 Unknown History [Fioricet 50-325-40] Cyanocobalamin (Vitamin B-12) 0 mcg PO DAILY 09/23/18 11/08/18 11/07/18 History [Vitamin B12] Fludrocortisone [Florinef] 0.1 mg PO QDAY 09/23/18 11/08/18 11/07/18 History Hydrocortisone [Cortef TAB] 10 mg PO DAILY 09/23/18 11/08/18 11/07/18 History Insulin Regular, Human [Humulin R] See Protocol SC ACHS 09/23/18 11/08/18 Unknown History Levothyroxine Sodium [Synthroid] 125 mcg PO DAILY 09/23/18 11/08/18 11/08/18 History Sertraline HCl [Zoloft] 25 mg PO DAILY 09/23/18 11/08/18 11/08/18 History hydrOXYzine PAMOATE [Vistaril] 25 mg PO TID 09/23/18 11/08/18 11/08/18 History AtorvaSTATin [Lipitor] 40 mg PO QHS #30 tab 09/24/18 11/08/18 11/06/18 Rx Ondansetron [Zofran ODT TAB] 4 mg PO Q8HR PRN #21 tab.rapdis 10/26/18 11/08/18 11/07/18 Rx levETIRAcetam [Keppra TAB] 500 mg PO BID #60 tablet 10/26/18 11/08/18 11/08/18 Rx ED Physical Exam - General Limitations: No Limitations General appearance: alert, in no apparent distress, other (pale and hypotensive) - Head Head exam: Present: atraumatic, normocephalic - Eye Eye exam: Present: normal appearance, PERRL, EOMI. Absent: scleral icterus - ENT ENT exam: Present: mucous membranes moist - Neck Neck exam: Present: normal inspection. Absent: tenderness, meningismus - Respiratory Respiratory exam: Present: normal lung sounds bilaterally, other (port R chest). Absent: respiratory distress - Cardiovascular Cardiovascular Exam: Present: regular rate, normal rhythm. Absent: systolic murmur, diastolic murmur, rubs, gallop - GI/Abdominal GI/Abdominal exam: Present: soft, normal bowel sounds. Absent: distended, tenderness, guarding, rebound, rigid - Extremities Exam Extremities exam: Present: normal inspection - Back Exam Back exam: Present: normal inspection - Neurological Exam Neurological exam: Present: alert, oriented X3, CN II-XII intact. Absent: motor sensory deficit - Psychiatric Psychiatric exam: Present: normal affect, normal mood - Skin Skin exam: Present: warm, dry, intact, normal color. Absent: rash ED Course Vital Signs 11/17/18 11/17/18 11/17/18 11:19 11:49 12:00 Temperature 97.7 F Pulse Rate 68 85 79 Respiratory 18 12 14 Rate Blood Pressure 136/80 67/44 Blood Pressure [Left] O2 Sat by Pulse 97 98 98 Oximetry 11/17/18 11/17/18 11/17/18 12:10 13:01 14:01 Temperature 97.7 F Pulse Rate 85 67 Respiratory 18 14 13 Rate Blood Pressure 64/38 78/50 Blood Pressure 76/42 [Left] O2 Sat by Pulse 98 97 99 Oximetry - Reevaluation(s) Reevaluation #1: The pt was given and fluid bolus which was repeated. She was empirically given antibiotics. Vancomycin was listed as an allergy. Clindamycin was chosen as an alternative. There was delayed processing of CBC results. Lab was asked to expedite. Dr. Arcenio donato I discussed pressors. He stated he would likely give steroids at this point. The patient's compliance with her medical regimen to include: Fludrocortisone [Florinef] 0.1 mg PO QDAY 09/23/18 11/08/18 11/07/18 Hydrocortisone [Cortef TAB] 10 mg PO DAILY 09/23/18 11/08/18 11/07/18 She states she took her last dose yesterday. Transaminases are elevated. An APAP level was ordered. 11/17/18 15:41 11/17/18 15:51 Reevaluation #2: Pt now with hypoglycemia. Given D50 and diet. 11/17/18 15:56 ED Medical Decision Making - Lab Data Result diagrams: 11/17/18 15:09 11/17/18 13:30 Laboratory Results - last 24 hr 11/17/18 11/17/18 11/17/18 11:30 13:30 13:30 PT INR APTT VBG pH Sodium 135 L Potassium 3.2 L Chloride 94.9 L Carbon Dioxide 27 Anion Gap 16 BUN 25 H Creatinine 1.5 H Estimated GFR 50 BUN/Creatinine Ratio 17 Glucose 90 POC Glucose 305 H Lactic Acid Calcium 8.7 Phosphorus Magnesium 1.80 Total Bilirubin 0.40 Direct Bilirubin < 0.2 Indirect Bilirubin 0.2 AST 451 H ALT 280 H Alkaline Phosphatase 219 H Total Creatine Kinase CK-MB (CK-2) CK-MB (CK-2) Rel Index Troponin T NT-Pro-B Natriuret Pep Total Protein 6.6 Albumin 3.9 Albumin/Globulin Ratio 1.4 HCG, Qual Blood Type O POSITIVE Antibody Screen Negative 11/17/18 11/17/18 11/17/18 13:30 13:30 13:30 PT 14.3 INR 1.05 APTT 44.1 H VBG pH Sodium Potassium Chloride Carbon Dioxide Anion Gap BUN Creatinine Estimated GFR BUN/Creatinine Ratio Glucose POC Glucose Lactic Acid 2.60 H* Calcium Phosphorus Magnesium Total Bilirubin Direct Bilirubin Indirect Bilirubin AST ALT Alkaline Phosphatase Total Creatine Kinase 22 L CK-MB (CK-2) < 1.0 CK-MB (CK-2) Rel Index 4.5 H Troponin T < 0.010 NT-Pro-B Natriuret Pep 281.0 Total Protein Albumin Albumin/Globulin Ratio HCG, Qual Blood Type Antibody Screen 11/17/18 11/17/18 11/17/18 13:30 13:30 13:30 PT INR APTT VBG pH 7.320 Sodium Potassium Chloride Carbon Dioxide Anion Gap BUN Creatinine Estimated GFR BUN/Creatinine Ratio Glucose POC Glucose Lactic Acid Calcium Phosphorus 3.30 Magnesium Total Bilirubin Direct Bilirubin Indirect Bilirubin AST ALT Alkaline Phosphatase Total Creatine Kinase CK-MB (CK-2) CK-MB (CK-2) Rel Index Troponin T NT-Pro-B Natriuret Pep Total Protein Albumin Albumin/Globulin Ratio HCG, Qual Negative Blood Type Antibody Screen Laboratory Results - last 24 hr 11/17/18 11/17/18 11/17/18 11:30 13:30 13:30 PT INR APTT VBG pH Sodium 135 L Potassium 3.2 L Chloride 94.9 L Carbon Dioxide 27 Anion Gap 16 BUN 25 H Creatinine 1.5 H Estimated GFR 50 BUN/Creatinine Ratio 17 Glucose 90 POC Glucose 305 H Ketones Quantitative Lactic Acid Calcium 8.7 Phosphorus Magnesium 1.80 Total Bilirubin 0.40 Direct Bilirubin < 0.2 Indirect Bilirubin 0.2 AST 451 H ALT 280 H Alkaline Phosphatase 219 H Total Creatine Kinase CK-MB (CK-2) CK-MB (CK-2) Rel Index Troponin T NT-Pro-B Natriuret Pep Total Protein 6.6 Albumin 3.9 Albumin/Globulin Ratio 1.4 [facility] [place] Blood Type O POSITIVE Antibody Screen Negative 11/17/18 11/17/18 11/17/18 13:30 13:30 13:30 PT 14.3 INR 1.05 APTT 44.1 H VBG pH Sodium Potassium Chloride Carbon Dioxide Anion Gap BUN Creatinine Estimated GFR BUN/Creatinine Ratio Glucose POC Glucose Ketones Quantitative Lactic Acid 2.60 H* Calcium Phosphorus Magnesium Total Bilirubin Direct Bilirubin Indirect Bilirubin AST ALT Alkaline Phosphatase Total Creatine Kinase 22 L CK-MB (CK-2) < 1.0 CK-MB (CK-2) Rel Index 4.5 H Troponin T < 0.010 NT-Pro-B Natriuret Pep 281.0 Total Protein Albumin Albumin/Globulin Ratio [facility] [place] [facility] Blood Type Antibody Screen 11/17/18 11/17/18 11/17/18 13:30 13:30 13:30 PT INR APTT VBG pH 7.320 Sodium Potassium Chloride Carbon Dioxide Anion Gap BUN Creatinine Estimated GFR BUN/Creatinine Ratio Glucose POC Glucose Ketones Quantitative Negative Lactic Acid Calcium Phosphorus 3.30 Magnesium Total Bilirubin Direct Bilirubin Indirect Bilirubin AST ALT Alkaline Phosphatase Total Creatine Kinase CK-MB (CK-2) CK-MB (CK-2) Rel Index Troponin T NT-Pro-B Natriuret Pep Total Protein Albumin Albumin/Globulin Ratio [facility] [place] Qual Blood Type Antibody Screen 11/17/18 13:30 PT INR APTT VBG pH Sodium Potassium Chloride Carbon Dioxide Anion Gap BUN Creatinine Estimated GFR BUN/Creatinine Ratio Glucose POC Glucose Ketones Quantitative Lactic Acid Calcium Phosphorus Magnesium Total Bilirubin Direct Bilirubin Indirect Bilirubin AST ALT Alkaline Phosphatase Total Creatine Kinase CK-MB (CK-2) CK-MB (CK-2) Rel Index Troponin T NT-Pro-B Natriuret Pep Total Protein Albumin Albumin/Globulin Ratio HCG, Qual Negative Blood Type Antibody Screen Critical Care Time: Yes Critical care time in (mins) excluding proc time.: 60 Critical care attestation.: If time is entered above; I have spent that time in minutes in the direct care of this critically ill patient, excluding procedure time. ED Disposition Clinical Impression: Addisons disease, Insulin dependent diabetes mellitus, Hypokalemia, Hypoglycemia, Lactic acid acidosis, Renal insufficiency, Elevated LFTs Hypotension Qualifiers: Hypotension type: other hypotension type Qualified Code(s): I95.89 - Other hypotension Disposition: 09 OP ADMIT IP TO THIS HOSP Is pt being admited?: Yes Does the pt Need Aspirin: Yes Condition: Stable Instructions: Diabetes Mellitus Type 2 in Adults (ED) Referrals: PRIMARY CARE, [Primary Care Provider] - 3-5 Days Time of Disposition: 15:58
--- NOTE | 2018-11-17 15:25 | History and Physical Report ---
History of Present Illness Chief complaint: I dont feel well History of present illness: 27 YO Female [facility] resident at [place] with DM, Addisons Disease, CKD currently resolved, Hypothyroidism, presents to ED for evaluation. Pt states that she experienced generalized weakness, elevated serum glucose levels, multiple episodes of nausea, and dizziness upon rising from a seated to a standing position. EMS notified, and upon arrival the patient was found to be in distress with systolic BP in the 70's. Pt transproted to [facility]. PT seen and evaluated in ED and found to have Adrenal Crisis, Acidosis, Hyponatremia, Hypokalemia, as well as ARF. Pt admitted to IM and treated with IV Hydrocortisone therapy. Pt denies fever, chills, CP, Palpitations, NVD, Trauma, Productive cough, Skin rash, recent ill contacts, BRBPR, skin rash. Prior admission on 11/07/18 reviewed. All listed medication reconciled at time of admission. Past History Past Medical History: diabetes, hypothyroidism, other (Addisons disease, CKD) Past Surgical History: No surgical history, Other (reviewed) Social history: single. denies: smoking, alcohol abuse, prescription drug abuse Family history: hypertension Medications and Allergies Allergies Allergy/AdvReac Type Severity Reaction Status Date / Time Penicillins Allergy Angioedema Verified 09/20/18 15:10 vortioxetine Allergy Unknown Verified 09/20/18 15:10 [From Trintellix] ziprasidone [From Geodon] Allergy Angioedema Verified 09/20/18 15:10 vancomycin AdvReac Itching Verified 09/20/18 15:10 Home Medications Medication Instructions Recorded Confirmed Last Taken Type Butalb/Acetamin/Caff 50-325-40 1 tab PO Q6HR PRN 09/23/18 11/08/18 Unknown History [Fioricet 50-325-40] Cyanocobalamin (Vitamin B-12) 0 mcg PO DAILY 09/23/18 11/08/18 11/07/18 History [Vitamin B12] Fludrocortisone [Florinef] 0.1 mg PO QDAY 09/23/18 11/08/18 11/07/18 History Hydrocortisone [Cortef TAB] 10 mg PO DAILY 09/23/18 11/08/18 11/07/18 History Insulin Regular, Human [Humulin R] See Protocol SC ACHS 09/23/18 11/08/18 Unknown History Levothyroxine Sodium [Synthroid] 125 mcg PO DAILY 09/23/18 11/08/18 11/08/18 History Sertraline HCl [Zoloft] 25 mg PO DAILY 09/23/18 11/08/18 11/08/18 History hydrOXYzine PAMOATE [Vistaril] 25 mg PO TID 09/23/18 11/08/18 11/08/18 History AtorvaSTATin [Lipitor] 40 mg PO QHS #30 tab 09/24/18 11/08/18 11/06/18 Rx Ondansetron [Zofran ODT TAB] 4 mg PO Q8HR PRN #21 tab.rapdis 10/26/18 11/08/18 11/07/18 Rx levETIRAcetam [Keppra TAB] 500 mg PO BID #60 tablet 10/26/18 11/08/18 11/08/18 Rx Review of Systems Constitutional: weakness, no weight loss, no weight gain, no fever, no chills Ears, nose, mouth and throat: no ear pain, no tinnitis, no decreased hearing, no nasal congestion, no nasal discharge, no sinus pressure Breasts: no change in shape, no swelling Cardiovascular: no chest pain, no orthopnea, no rapid/irregular heart beat, no syncope Respiratory: no cough, no cough with sputum, no hemoptysis, no shortness of breath Gastrointestinal: no abdominal pain, no nausea, no diarrhea, no constipation, no change in bowel habits, no hematemesis Genitourinary Female: no pelvic pain, no flank pain, no menorrhagia, no dysuria Rectal: no pain, no incontinence, no bleeding Musculoskeletal: no neck stiffness, no neck pain, no arm numbness/tingling, no low back pain, no shooting leg pain Integumentary: no rash, no pruritis, no redness, no wounds Neurological: no head injury, no transient paralysis, no paralysis, no weakness, no parathesias, no syncope Psychiatric: no anxiety, no memory loss, no change in sleep habits, no sleep disturbances, no hypersomnia, no change in libido, no suicidal ideation Endocrine: no excessive thirst, no polydipsia, no polyuria, no nocturia Hematologic/Lymphatic: no easy bruising, no easy bleeding, no lymphedema Allergic/Immunologic: no persistent infections Exam - Constitutional Vitals: Temp Pulse Resp BP Pulse Ox 97.7 F 67 13 78/50 99 11/17/18 12:10 11/17/18 14:01 11/17/18 14:01 11/17/18 14:01 11/17/18 14:01 General appearance: Present: mild distress - EENT Eyes: Present: PERRL ENT: hearing intact, clear oral mucosa - Neck Neck: Present: supple, normal ROM - Respiratory Respiratory effort: normal Respiratory: bilateral: CTA - Cardiovascular Heart Sounds: Present: S1 & S2. Absent: rub, click - Extremities Extremities: pulses symmetrical, No edema Peripheral Pulses: within normal limits - Abdominal General gastrointestinal: Present: soft, non-tender, non-distended, normal bowel sounds Female genitourinary: Present: normal - Integumentary Integumentary: Present: clear, warm, dry - Musculoskeletal Musculoskeletal: gait normal, strength equal bilaterally - Psychiatric Psychiatric: appropriate mood/affect, intact judgment & insight - Neurologic Neurologic: CNII-XII intact, moves all extremities Results - Labs CBC & Chem 7: 11/18/18 05:41 11/17/18 13:30 Labs: Abnormal lab results 11/17/18 11/17/18 11/17/18 Range/Units 11:30 13:30 13:30 APTT 44.1 H (24.2-36.6) Sec. Sodium 135 L (137-145) mmol/L Potassium 3.2 L (3.6-5.0) mmol/L Chloride 94.9 L (98-107) mmol/L BUN 25 H (7-17) mg/dL Creatinine 1.5 H (0.7-1.2) mg/dL POC Glucose 305 H (70-105) Lactic Acid (0.7-2.0) mmol/L AST 451 H (5-40) units/L ALT 280 H (7-56) units/L Alkaline Phosphatase 219 H (35-129) units/L Total Creatine Kinase (30-135) units/L CK-MB (CK-2) Rel Index (0-4) 11/17/18 11/17/18 Range/Units 13:30 13:30 APTT (24.2-36.6) Sec. Sodium (137-145) mmol/L Potassium (3.6-5.0) mmol/L Chloride (98-107) mmol/L BUN (7-17) mg/dL Creatinine (0.7-1.2) mg/dL POC Glucose (70-105) Lactic Acid 2.60 H* (0.7-2.0) mmol/L AST (5-40) units/L ALT (7-56) units/L Alkaline Phosphatase (35-129) units/L Total Creatine Kinase 22 L (30-135) units/L CK-MB (CK-2) Rel Index 4.5 H (0-4) Assessment and Plan - Patient Problems (1) Adrenal crisis syndrome Current Visit: Yes Status: Acute Plan to address problem: IV hydrocortisone, monitor BP q shift, IVF resuscitation therapy, supportive care. (2) Acidosis Current Visit: Yes Status: Acute Plan to address problem: IVF resuscitation therapy, monitor uop q shift, repeat bmp in am. (3) ARF (acute renal failure) with tubular necrosis Current Visit: Yes Status: Acute Plan to address problem: iVF resuscitation therpay, monitor uopq shift, monitor serum creatnine. (4) Hyponatremia syndrome Current Visit: Yes Status: Acute Plan to address problem: IVF resuscitation therapy, treat Adrenal crisis, supportive care. (5) Hypokalemia Current Visit: Yes Status: Acute Plan to address problem: Dietary repletion, supportive care. (6) Hope's disease Current Visit: Yes Status: Acute Plan to address problem: Continue current therapy, cortisol level, supportive care. (7) Hypothyroid Current Visit: Yes Status: Acute Qualifiers: Hypothyroidism type: acquired Qualified Code(s): E03.9 - Hypothyroidism, unspecified Plan to address problem: Thyroid panel, continue synthroid therapy (8) DVT prophylaxis Current Visit: Yes Status: Acute Plan to address problem: SCD to BLE while in bed, prophylactic heparinn
[2018-11-17] MEDS ORDERED: NACL 0.9% 1000 ML 3,000 ML IV ONE (15:27)
[2018-11-17] MEDS ORDERED: K-DUR PO ONE (15:29)
[2018-11-17 15:31] LABS: Hemoglobin 9.6 gm/dl (10.1-14.3); Mean Corpuscular HGB Conc 33 % (30-34); Mean Corpuscular Volume 81 fl (79-97); Platelet Count 302 K/mm3 (140-440); Red Blood Count 3.57 M/mm3 (3.65-5.03); Red Cell Distribution Width 14.9 % (13.2-15.2)
[2018-11-17] MEDS ORDERED: D50W (25GM) Syringe IV ONE (15:54)
[2018-11-17 16:16] LABS: Free T4 (Free Thyroxine) 0.43 ng/dL (0.76-1.46)
[2018-11-17] MEDS ORDERED: PERCOCET 5/325 PO PRN (16:37)
[2018-11-17] MEDS ORDERED: PROVENTIL IH PRN (16:37)
[2018-11-17] MEDS ORDERED: SODIUM CHLORIDE FLUSH SYRINGE 10 ML IV PRN (16:37)
[2018-11-17 17:06] LABS: Band Neutrophils # (Manual) 0.1 K/mm3; Basophils % (Manual) 0 % (0.0-1.8); Total Cells Counted 100
[2018-11-17 17:07] LABS: Anisocytosis 1+; Hypochromasia 2+; Ovalocytes Few; Platelet Estimate Consistent w Auto; Poikilocytosis Few
[2018-11-17 19:04] LABS: Amphetamine Screen,Urine PRESUMPTIVE NEGATIVE; Benzodiazepines Screen,Urine PRESUMPTIVE NEGATIVE; Cannabinoid Screen,Urine PRESUMPTIVE NEGATIVE; Cocaine Screen,Urine PRESUMPTIVE NEGATIVE; Methadone Screen,Urine PRESUMPTIVE NEGATIVE; Opiate Screen,Urine PRESUMPTIVE NEGATIVE
[2018-11-17 19:17] LABS: Bilirubin,Urine NEG (Negative); Blood,Urine NEG (Negative); Color,Urine Yellow (Yellow); Hyaline Casts,Urine 6 /LPF; Protein,Urine <15 mg/dL mg/dL (Negative); Urobilinogen,Urine < 2.0 mg/dL (<2.0)
[2018-11-17 19:22] LABS: HCG Qualitative,Urine Negative (Negative)
[2018-11-17] MEDS: SODIUM CHLORIDE FLUSH SYRINGE 10 ML IV SCH (21:47)
[2018-11-17] MEDS ORDERED: D50W (25GM) Syringe IV PRN (23:27)
[2018-11-18] MEDS: HumaLOG SUB-Q SCH ×5 (00:04→22:20)
[2018-11-18 06:05] LABS: Basophils % (Auto) 0.5 % (0.0-1.8); Eosinophils % (Auto) 0.1 % (0.0-4.3); Hematocrit 27.5 % (30.3-42.9); Lymphocytes # (Auto) 0.9 K/mm3 (1.2-5.4); Lymphocytes % (Auto) 18.6 % (13.4-35.0); Mean Corpuscular HGB Conc 33 % (30-34); Mean Corpuscular Volume 82 fl (79-97); Monocytes # (Auto) 0.1 K/mm3 (0.0-0.8); Monocytes % (Auto) 1.1 % (0.0-7.3); Platelet Count 280 K/mm3 (140-440); Red Blood Count 3.36 M/mm3 (3.65-5.03); Red Cell Distribution Width 15.6 % (13.2-15.2)
[2018-11-18 06:26] LABS: Albumin 3.5 g/dL (3.9-5); Calcium 7.9 mg/dL (8.4-10.2)
[2018-11-18] MEDS ORDERED: FIORICET PO PRN (06:26)
[2018-11-18] MEDS ORDERED: ZOFRAN ODT PO PRN (06:26)
[2018-11-18] MEDS ORDERED: HumaLOG SUB-Q SCH (07:30)
[2018-11-18] MEDS: VISTARIL PO SCH ×3 (08:35→20:04)
--- NOTE | 2018-11-18 09:52 | Progress Note ---
Assessment and Plan Assessment and plan: Adrenal crisis syndrome Continue supplemental steroids Florine Addisons disease On Florinef hypothyroidosm synthroid Diabetes mellitus typpe 2 , uncontrolled Start Novolin 70/30 Hypotension start NS Full code History Interval history: Gen weakness Elevated blood glucose Hospitalist Physical - Physical exam Narrative exam: Gen: Not in acute distress, sitting up in bed, HEENT: Normocephalic, atraumatic Neck: supple, no JVD Heart: S1 and S2 reg, no murmurs, rubs or gallop Lungs: Clear, no crackles, no wheeze Abd: soft, non tender, non distended, normal BS Ext: No edema, no clubbing, no cyanosis, Neuro: Awake,alert, oriented x 3, moves all ext, non focal Psych:Normal mood - Constitutional Vitals: Temp Pulse Resp BP Pulse Ox 97.9 F 67 7 L 97/ 95 11/18/18 04:42 11/18/18 06:31 11/18/18 06:31 11/18/18 06:31 11/18/18 06:31 Results - Labs CBC & Chem 7: 11/18/18 05:41 11/18/18 05:41 Labs: Laboratory Last Values WBC 4.8 K/mm3 (4.5-11.0) 11/18/18 05:41 RBC 3.36 M/mm3 (3.65-5.03) L 11/18/18 05:41 Hgb 9.0 gm/dl (10.1-14.3) L 11/18/18 05:41 Hct 27.5 % (30.3-42.9) L 11/18/18 05:41 MCV 82 fl (79-97) 11/18/18 05:41 MCH 27 pg (28-32) L 11/18/18 05:41 MCHC 33 % (30-34) 11/18/18 05:41 RDW 15.6 % (13.2-15.2) H 11/18/18 05:41 Plt Count 280 K/mm3 (140-440) 11/18/18 05:41 Lymph % (Auto) 18.6 % (13.4-35.0) 11/18/18 05:41 [place] % (Auto) 1.1 % (0.0-7.3) 11/18/18 05:41 Eos % (Auto) 0.1 % (0.0-4.3) 11/18/18 05:41 Baso % (Auto) 0.5 % (0.0-1.8) 11/18/18 05:41 Lymph # 0.9 K/mm3 (1.2-5.4) L 11/18/18 05:41 [place] # 0.1 K/mm3 (0.0-0.8) 11/18/18 05:41 Eos # 0.0 K/mm3 (0.0-0.4) 11/18/18 05:41 Baso # 0.0 K/mm3 (0.0-0.1) 11/18/18 05:41 Add Manual Diff Complete 11/17/18 15:09 Total Counted 100 11/17/18 15:09 Seg Neutrophils % 79.7 % (40.0-70.0) H 11/18/18 05:41 Seg Neuts % (Manual) 25.0 % (40.0-70.0) L 11/17/18 15:09 1.0 % 11/17/18 15:09 68.0 % (13.4-35.0) H 11/17/18 15:09 Reactive Lymphs % (Man) 0 % 11/17/18 15:09 2.0 % (0.0-7.3) 11/17/18 15:09 4.0 % (0.0-4.3) 11/17/18 15:09 0 % (0.0-1.8) 11/17/18 15:09 0 % 11/17/18 15:09 0 % 11/17/18 15:09 0 % 11/17/18 15:09 0 % 11/17/18 15:09 Nucleated RBC % Not Reportable 11/17/18 15:09 Seg Neutrophils # 3.9 K/mm3 (1.8-7.7) 11/18/18 05:41 Seg Neutrophils # Man 1.7 K/mm3 (1.8-7.7) L 11/17/18 15:09 Band Neutrophils # 0.1 K/mm3 11/17/18 15:09 4.6 K/mm3 (1.2-5.4) 11/17/18 15:09 Abs React Lymphs (Man) 0.0 K/mm3 11/17/18 15:09 0.1 K/mm3 (0.0-0.8) 11/17/18 15:09 0.3 K/mm3 (0.0-0.4) 11/17/18 15:09 0.0 K/mm3 (0.0-0.1) 11/17/18 15:09 0.0 K/mm3 11/17/18 15:09 0.0 K/mm3 11/17/18 15:09 0.0 K/mm3 11/17/18 15:09 Blast Cells # 0.0 K/mm3 11/17/18 15:09 WBC Morphology Not Reportable 11/17/18 15:09 Hypersegmented Neuts Not Reportable 11/17/18 15:09 Hyposegmented Neuts Not Reportable 11/17/18 15:09 Hypogranular Neuts Not Reportable 11/17/18 15:09 Not Reportable 11/17/18 15:09 Not Reportable 11/17/18 15:09 Not Reportable 11/17/18 15:09 Not Reportable 11/17/18 15:09 Not Reportable 11/17/18 15:09 Not Reportable 11/17/18 15:09 Consistent w auto 11/17/18 15:09 Not Reportable 11/17/18 15:09 Plt Clumps, EDTA Not Reportable 11/17/18 15:09 Not Reportable 11/17/18 15:09 Not Reportable 11/17/18 15:09 Not Reportable 11/17/18 15:09 Plt Morphology Comment Not Reportable 11/17/18 15:09 RBC Morphology Not Reportable 11/17/18 15:09 Dimorphic RBCs Not Reportable 11/17/18 15:09 Not Reportable 11/17/18 15:09 2+ 11/17/18 15:09 Few 11/17/18 15:09 1+ 11/17/18 15:09 Not Reportable 11/17/18 15:09 Not Reportable 11/17/18 15:09 Not Reportable 11/17/18 15:09 Not Reportable 11/17/18 15:09 Not Reportable 11/17/18 15:09 Not Reportable 11/17/18 15:09 Not Reportable 11/17/18 15:09 Few 11/17/18 15:09 Not Reportable 11/17/18 15:09 Not Reportable 11/17/18 15:09 Not Reportable 11/17/18 15:09 Not Reportable 11/17/18 15:09 Not Reportable 11/17/18 15:09 Not Reportable 11/17/18 15:09 Not Reportable 11/17/18 15:09 Acanthocytes (Spur) Not Reportable 11/17/18 15:09 Rouleaux Not Reportable 11/17/18 15:09 Not Reportable 11/17/18 15:09 Not Reportable 11/17/18 15:09 Not Reportable 11/17/18 15:09 Not Reportable 11/17/18 15:09 Hem Pathologist Commnt No 11/17/18 15:09 PT 14.3 Sec. (12.2-14.9) 11/17/18 13:30 INR 1.05 (0.87-1.13) 11/17/18 13:30 APTT 44.1 Sec. (24.2-36.6) H 11/17/18 13:30 VBG pH 7.320 (7.320-7.420) 11/17/18 13:30 Sodium 129 mmol/L (137-145) L 11/18/18 05:41 Potassium 4.7 mmol/L (3.6-5.0) D 11/18/18 05:41 Chloride 92.8 mmol/L (98-107) L 11/18/18 05:41 Carbon Dioxide 22 mmol/L (22-30) 11/18/18 05:41 19 mmol/L 11/18/18 05:41 BUN 23 mg/dL (7-17) H 11/18/18 05:41 1.5 mg/dL (0.7-1.2) H 11/18/18 05:41 Estimated GFR 50 ml/min 11/18/18 05:41 15 % 11/18/18 05:41 Glucose 442 mg/dL (65-100) H 11/18/18 05:41 POC Glucose 461 (70-105) H 11/18/18 08:28 11.0 % (4-6) H 11/18/18 05:41 Negative (Negative) 11/17/18 13:30 Lactic Acid 1.80 mmol/L (0.7-2.0) 11/17/18 15:09 Calcium 7.9 mg/dL (8.4-10.2) L 11/18/18 05:41 Phosphorus 3.30 mg/dL (2.5-4.5) 11/17/18 13:30 Magnesium 1.80 mg/dL (1.7-2.3) 11/17/18 13:30 0.20 mg/dL (0.1-1.2) 11/18/18 05:41 < 0.2 mg/dL (0-0.2) 11/17/18 13:30 0.2 mg/dL 11/17/18 13:30 AST 361 units/L (5-40) H 11/18/18 05:41 ALT 248 units/L (7-56) H 11/18/18 05:41 199 units/L (35-129) H 11/18/18 05:41 22 units/L (30-135) L 11/17/18 13:30 CK-MB (CK-2) < 1.0 ng/mL (0.0-4.0) 11/17/18 13:30 CK-MB (CK-2) Rel Index 4.5 (0-4) H 11/17/18 13:30 < 0.010 ng/mL (0.00-0.029) 11/17/18 13:30 NT-Pro-B Natriuret Pep 281.0 pg/mL (0-450) 11/17/18 13:30 6.2 g/dL (6.3-8.2) L 11/18/18 05:41 3.5 g/dL (3.9-5) L 11/18/18 05:41 1.3 % 11/18/18 05:41 TSH 7.730 mlU/mL (0.270-4.200) H 11/17/18 15:40 Free T4 0.43 ng/dL (0.76-1.46) L 11/17/18 15:40 3.3 ug/dL (4.0-12.0) L 11/17/18 15:40 HCG, Qual Negative (Negative) 11/17/18 13:30 Yellow (Yellow) 11/17/18 18:34 Clear (Clear) 11/17/18 18:34 5.0 (5.0-7.0) 11/17/18 18:34 Ur Specific [place] 1.016 (1.003-1.030) 11/17/18 18:34 <15 mg/dl mg/dL (Negative) 11/17/18 18:34 >=500 mg/dL (Negative) 11/17/18 18:34 Neg mg/dL (Negative) 11/17/18 18:34 Neg (Negative) 11/17/18 18:34 Neg (Negative) 11/17/18 18:34 Neg (Negative) 11/17/18 18:34 < 2.0 mg/dL (<2.0) 11/17/18 18:34 Ur Leukocyte Esterase Sm (Negative) 11/17/18 18:34 7.0 /HPF (0.0-6.0) H 11/17/18 18:34 3.0 /HPF (0.0-6.0) 11/17/18 18:34 U Epithel Cells (Auto) 1.0 /HPF (0-13.0) 11/17/18 18:34 Hyaline Casts 6 /LPF 11/17/18 18:34 Few /HPF 11/17/18 18:34 Urine HCG, Qual Negative (Negative) 11/17/18 18:34 Salicylates < 0.3 mg/dL (2.8-20.0) L 11/17/18 15:40 Presumptive negative 11/17/18 18:34 Presumptive negative 11/17/18 18:34 Acetaminophen < 5.0 ug/mL (10.0-30.0) L 11/17/18 15:40 Ur Barbiturates Screen Presumptive negative 11/17/18 18:34 Ur Phencyclidine Scrn Presumptive negative 11/17/18 18:34 Ur Amphetamines Screen Presumptive negative 11/17/18 18:34 U Benzodiazepines Scrn Presumptive negative 11/17/18 18:34 Presumptive negative 11/17/18 18:34 U Marijuana (THC) Screen Presumptive negative 11/17/18 18:34 Disclamer 11/17/18 18:34 Blood Type O POSITIVE 11/17/18 13:30 Antibody Screen Negative 11/17/18 13:30 Active Medications - Current Medications Current Medications: Generic Name Dose Route Start Last Admin Trade Name Freq PRN Reason Stop Dose Admin Acetaminophen/Butalbital/Caffeine 1 tab 11/18/18 06:26 Fioricet PO Q6H PRN Headache Albuterol 2.5 mg 11/17/18 16:37 Proventil IH Q3HRT PRN Shortness Of Breath Atorvastatin Calcium 40 mg 11/18/18 22:00 Lipitor PO QHS MARINO Dextrose 50 ml 11/17/18 23:27 D50w (25gm) Syringe IV PRN PRN Hypoglycemia Fludrocortisone Acetate 0.1 mg 11/18/18 10:00 Florinef PO QDAY [facility] Heparin Sodium (Porcine) 5,000 unit 11/18/18 10:00 Heparin SUB-Q Q12HR [facility] Hydrocortisone Acetate 10 mg 11/18/18 10:00 Cortef PO DAILY [facility] Hydroxyzine Pamoate 25 mg 11/18/18 08:00 11/18/18 08:35 Vistaril PO 25 mg TID [facility] Administration Sodium Chloride 1,000 mls @ 100 mls/hr 11/18/18 10:00 Nacl 0.9% 1000 Ml IV DIRECT [facility] Insulin Human Lispro 0 unit 11/18/18 00:00 11/18/18 08:35 Humalog SUB-Q 8 unit ACHS [facility] Administration Protocol Levetiracetam 500 mg 11/18/18 10:00 Keppra PO BID [facility] Levothyroxine Sodium 125 mcg 11/18/18 10:00 Synthroid PO DAILY@0600 [facility] Ondansetron HCl 4 mg 11/18/18 06:26 Zofran Odt PO Q8H PRN Nausea Oxycodone/Acetaminophen 1 tab 11/17/18 16:37 Percocet 5/325 PO Q6H PRN Pain, Moderate (4-6) Sertraline HCl 25 mg 11/18/18 10:00 Zoloft PO DAILY MARINO Sodium Chloride 10 ml 11/17/18 22:00 11/17/18 21:47 Sodium Chloride Flush Syringe 10 Ml IV 10 ml BID MARINO Administration Sodium Chloride 10 ml 11/17/18 16:37 Sodium Chloride Flush Syringe 10 Ml IV PRN PRN LINE FLUSH
[2018-11-18] MEDS ORDERED: NACL 0.9% 1000 ML 1,000 ML IV SCH (10:00)
[2018-11-18] MEDS: HEPARIN SUB-Q SCH ×2 (10:06→21:54)
[2018-11-18] MEDS: KEPPRA PO SCH ×2 (10:06→21:54)
[2018-11-18] MEDS: CORTEF PO SCH (11:22)
[2018-11-18] MEDS: FLORINEF PO SCH (11:22)
[2018-11-18] MEDS: ZOLOFT PO SCH (11:22)
[2018-11-18] MEDS: SODIUM CHLORIDE FLUSH SYRINGE 10 ML IV SCH ×2 (11:28→22:00)
[2018-11-18] MEDS: SYNTHROID PO SCH (11:29)
[2018-11-18] MEDS ORDERED: BENADRYL IV PRN (16:32)
[2018-11-19] MEDS: SYNTHROID PO SCH (05:46)
[2018-11-19 06:19] LABS: Hematocrit 25.3 % (30.3-42.9); Hemoglobin 8.2 gm/dl (10.1-14.3); Mean Corpuscular HGB Conc 33 % (30-34); Mean Corpuscular Volume 82 fl (79-97); Platelet Count 264 K/mm3 (140-440); Red Cell Distribution Width 15.4 % (13.2-15.2)
[2018-11-19 06:46] LABS: BUN/Creatinine Ratio 15; Blood Urea Nitrogen 18 mg/dL (7-17); Calcium 7.7 mg/dL (8.4-10.2); Hemolysis Index 0
[2018-11-19] MEDS: HumaLOG SUB-Q SCH ×3 (07:30→17:58)
[2018-11-19] MEDS: HEPARIN SUB-Q SCH (09:36)
[2018-11-19] MEDS: FLORINEF PO SCH (09:37)
[2018-11-19] MEDS: KEPPRA PO SCH (09:37)
[2018-11-19] MEDS: ZOLOFT PO SCH (09:37)
[2018-11-19] MEDS: VISTARIL PO SCH ×2 (09:37→17:58)
[2018-11-19] MEDS: CORTEF PO SCH (09:37)
[2018-11-19] MEDS: SODIUM CHLORIDE FLUSH SYRINGE 10 ML IV SCH (09:38)
[2018-11-19 11:49] LABS: Alanine Aminotransferase 168 units/L (7-56); Albumin 3.3 g/dL (3.9-5)
[2018-11-19 12:00] LABS: Bilirubin,Direct < 0.2 mg/dL (0-0.2)
--- NOTE | 2018-11-19 14:07 | Discharge Summary ---
Providers - Providers Date of Admission: 11/17/18 16:37 Date of discharge: 11/19/18 Attending physician: ARIC BENTLEY 11/17/18 23:28 Consult to Dietitian/Nutrition [CONS] Routine Physician Instructions: Reason For Exam: Reason for Consult: Diet education Primary care physician: [employer] Hospitalization Condition: Fair Hospital course: Patient is 27 yo with diabetes, Addisons Disease, hypothyroidism, presented to ED for evaluation. Patient states that she experienced generalized weakness, elevated serum glucose levels, multiple episodes of nausea, and dizziness upon rising from a seated to a standing position. Patient seen and evaluated in ED and found to have Adrenal Crisis, Acidosis, Hyponatremia, Hypokalemia, as well as ARF, hypotension. She was admitted to [facility] and treated with IV Hydrocortisone therapy. Also put on Florinef. BP improved and she was discharged home on 11/19/18. 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 2.Follow up with [employer] in 1 week Follow up with: PRIMARY CARE, [Primary Care Provider] - 3-5 Days
[2018-11-19 15:01] VITALS: BP 112/74
== END 2018-11-19 18:53 | disposition home health service (06) | DRG 643 ==
LOC: ED 11:11 → IMCU 16:37
PROVIDERS: ADMIT Internal Medicine; ATTEND Internal Medicine
DX: E27.2 Addisonian crisis (principal); N17.0 Acute kidney failure with tubular necrosis; E27.1 Primary adrenocortical insufficiency; E87.1 Hypo-osmolality and hyponatremia; E87.6 Hypokalemia; E11.22 Type 2 diabetes mellitus with diabetic chronic kidney disease; E03.9 Hypothyroidism, unspecified; Z82.49 Family history of ischemic heart disease and other diseases of the circulatory system; Z88.0 Allergy status to penicillin; Z88.1 Allergy status to other antibiotic agents; Z88.8 Allergy status to other drugs, medicaments and biological substances; N18.2 Chronic kidney disease, stage 2 (mild); Z90.49 Acquired absence of other specified parts of digestive tract; E11.649 Type 2 diabetes mellitus with hypoglycemia without coma; Z79.84 Long term (current) use of oral hypoglycemic drugs
CPT/HCPCS: 36415; 71045; 80048; 80053; 80076; 80307; 80320; 81001; 81025; 82010; 82140; 82533; 82550; 82553; 82805; 82962; 83036; 83735; 83880; 84100; 84436; 84439; 84443; 84484; 84703; 85007; 85025; 85027; 85610; 85730; 86850; 86900; 86901; 87040; 87086; 93005; 93010; 96361; 96365; 96367; 96375; G0378; G0480; J1200; J1644; J1720; J1815; J2185; J2405; J7030; Q0162; Q0177

== ENCOUNTER 2018-12-10 15:32 | Inpatient (IN) | payer MEDICAID ==
[2018-12-10] MEDS ORDERED: NACL 0.9% 1000 ML IV ONE (16:09)
[2018-12-10] MEDS ORDERED: LEVAQUIN 750MG/150ML 750 MG/150 ML BAG IV ONE (16:11)
--- NOTE | 2018-12-10 16:39 | Emergency Department Report ---
ED General Adult HPI - General Chief complaint: Dizziness Stated complaint: HYPERGLYCEMIA Time Seen by Provider: 12/10/18 15:58 Source: patient, EMS Mode of arrival: Stretcher Limitations: No Limitations - History of Present Illness Initial comments: The patient presents to the emergency department with a chief complaint of not feeling well. Patient also complains of being dizzy upon standing for the last 2 days. Patient also states over the last couple days she's had increased frequency and thirst. Patient has a history of Chisago's disease and states she is taking her steroids as prescribed and has not missed a dose. -: Sudden Radiation: non-radiation Severity scale (0 -10): 0 Consistency: constant Improves with: none Worsens with: none Associated Symptoms: denies other symptoms Treatments Prior to Arrival: none - Related Data Home Medications Medication Instructions Recorded Confirmed Last Taken Fludrocortisone [Florinef] 0.1 mg PO DAILY 09/23/18 12/10/18 11/16/18 09:00 Hydrocortisone [Cortef TAB] 10 mg PO BID 09/23/18 12/10/18 11/16/18 09:00 Levothyroxine Sodium [Synthroid] 125 mcg PO DAILY 09/23/18 12/10/18 11/18/18 10:01 Sertraline [Zoloft] 50 mg PO DAILY 12/10/18 12/10/18 Unknown Previous Rx's Medication Instructions Recorded Last Taken Type levETIRAcetam [Keppra TAB] 500 mg PO BID #60 tablet 10/26/18 11/16/18 09:00 Rx Allergies Allergy/AdvReac Type Severity Reaction Status Date / Time Penicillins Allergy Angioedema Verified 09/20/18 15:10 vortioxetine Allergy Unknown Verified 09/20/18 15:10 [From Trintellix] ziprasidone [From Geodon] Allergy Angioedema Verified 09/20/18 15:10 vancomycin AdvReac Itching Verified 09/20/18 15:10 ED Review of Systems ROS: Stated complaint: HYPERGLYCEMIA Other details as noted in HPI Comment: All other systems reviewed and negative Constitutional: denies: chills, fever Eyes: denies: eye pain, eye discharge, vision change ENT: denies: ear pain, throat pain Respiratory: denies: cough, shortness of breath, wheezing Cardiovascular: denies: chest pain, palpitations Endocrine: no symptoms reported Gastrointestinal: denies: abdominal pain, nausea, diarrhea Genitourinary: denies: urgency, dysuria, discharge Musculoskeletal: denies: back pain, joint swelling, arthralgia Skin: denies: rash, lesions Neurological: denies: headache, weakness, paresthesias Psychiatric: denies: anxiety, depression Hematological/Lymphatic: denies: easy bleeding, easy bruising ED Past Medical Hx - Past Medical History Previous Medical History?: Yes Hx Congestive Heart Failure: No Hx Diabetes: Yes Hx Renal Disease: Yes (Stage 2) Hx Seizures: Yes Hx Asthma: No Hx COPD: No Additional medical history: hypotension, hypothyroidism, Chisago's disease - Surgical History Past Surgical History?: Yes Hx Cholecystectomy: Yes Hx Appendectomy: Yes Additional Surgical History: 4. port right chest wall - Social History Smoking Status: Never Smoker Substance Use Type: None - Medications Home Medications: Home Medications Medication Instructions Recorded Confirmed Last Taken Type Fludrocortisone [Florinef] 0.1 mg PO DAILY 09/23/18 12/10/18 11/16/18 09:00 History Hydrocortisone [Cortef TAB] 10 mg PO BID 09/23/18 12/10/18 11/16/18 09:00 History Levothyroxine Sodium [Synthroid] 125 mcg PO DAILY 09/23/18 12/10/18 11/18/18 10:01 History levETIRAcetam [Keppra TAB] 500 mg PO BID #60 tablet 10/26/18 12/10/18 11/16/18 09:00 Rx Sertraline [Zoloft] 50 mg PO DAILY 12/10/18 12/10/18 Unknown History ED Physical Exam - General Limitations: No Limitations General appearance: alert, in no apparent distress - Head Head exam: Present: atraumatic, normocephalic - Eye Eye exam: Present: normal appearance, PERRL, EOMI - ENT ENT exam: Present: mucous membranes dry - Neck Neck exam: Present: normal inspection - Respiratory Respiratory exam: Present: normal lung sounds bilaterally. Absent: respiratory distress - Cardiovascular Cardiovascular Exam: Present: regular rate, normal rhythm. Absent: systolic murmur, diastolic murmur, rubs, gallop - GI/Abdominal GI/Abdominal exam: Present: soft, normal bowel sounds. Absent: distended, tend erness - Extremities Exam Extremities exam: Present: normal inspection - Back Exam Back exam: Present: normal inspection - Neurological Exam Neurological exam: Present: alert, oriented X3, CN II-XII intact. Absent: motor sensory deficit - Psychiatric Psychiatric exam: Present: normal affect, normal mood - Skin Skin exam: Present: warm, dry, intact, normal color. Absent: rash ED Course Vital Signs 12/10/18 12/10/18 12/10/18 15:43 15:46 16:00 Temperature 98.2 F Pulse Rate 83 87 Respiratory 16 19 Rate Blood Pressure 70/45 63/34 O2 Sat by Pulse 95 94 87 Oximetry 12/10/18 12/10/18 12/10/18 16:31 17:00 17:31 Temperature Pulse Rate 81 77 75 Respiratory 16 11 L 12 Rate Blood Pressure 63/34 73/44 85/39 O2 Sat by Pulse Oximetry 12/10/18 12/10/18 18:01 18:31 Temperature Pulse Rate 79 72 Respiratory 12 15 Rate Blood Pressure 68/29 78/45 O2 Sat by Pulse Oximetry ED Medical Decision Making - Lab Data Result diagrams: 12/10/18 16:37 12/10/18 16:37 Lab Results 12/10/18 12/10/18 12/10/18 Range/Units 16:26 16:37 16:37 WBC 6.5 (4.5-11.0) K/mm3 RBC 3.65 (3.65-5.03) M/mm3 Hgb 9.6 L (10.1-14.3) gm/dl Hct 29.2 L (30.3-42.9) % MCV 80 (79-97) fl MCH 26 L (28-32) pg MCHC 33 (30-34) % RDW 15.6 H (13.2-15.2) % Plt Count 221 (140-440) K/mm3 Lymph % (Auto) Orchid Transplanter Add Manual Diff Complete Total Counted 100 Seg Neutrophils % Orchid Transplanter Seg Neuts % (Manual) 28.0 L (40.0-70.0) % Band Neutrophils % 0 % Lymphocytes % (Manual) 66.0 H (13.4-35.0) % Reactive Lymphs % (Man) 0 % Monocytes % (Manual) 3.0 (0.0-7.3) % Eosinophils % (Manual) 3.0 (0.0-4.3) % Basophils % (Manual) 0 (0.0-1.8) % Metamyelocytes % 0 % Myelocytes % 0 % Promyelocytes % 0 % Blast Cells % 0 % Nucleated RBC % Not Reportable Seg Neutrophils # Man 1.8 (1.8-7.7) K/mm3 Band Neutrophils # 0.0 K/mm3 Lymphocytes # (Manual) 4.3 (1.2-5.4) K/mm3 Abs React Lymphs (Man) 0.0 K/mm3 Monocytes # (Manual) 0.2 (0.0-0.8) K/mm3 Eosinophils # (Manual) 0.2 (0.0-0.4) K/mm3 Basophils # (Manual) 0.0 (0.0-0.1) K/mm3 Metamyelocytes # 0.0 K/mm3 Myelocytes # 0.0 K/mm3 Promyelocytes # 0.0 K/mm3 Blast Cells # 0.0 K/mm3 WBC Morphology Not Reportable Hypersegmented Neuts Not Reportable Hyposegmented Neuts Not Reportable Hypogranular Neuts Not Reportable Smudge Cells Not Reportable Toxic Granulation Not Reportable Toxic Vacuolation Not Reportable Dohle Bodies Not Reportable Pelger-Huet Anomaly Not Reportable Fredrick Rods Not Reportable Platelet Estimate Consistent w auto Clumped Platelets Not Reportable Plt Clumps, EDTA Not Reportable Large Platelets Not Reportable Giant Platelets Not Reportable Platelet Satelliting Not Reportable Plt Morphology Comment Not Reportable RBC Morphology Not Reportable Dimorphic RBCs Not Reportable Polychromasia Not Reportable Hypochromasia Not Reportable Poikilocytosis Not Reportable Anisocytosis 1+ Microcytosis Not Reportable Macrocytosis Not Reportable Spherocytes Not Reportable Pappenheimer Bodies Not Reportable Sickle Cells Not Reportable Target Cells Rare Tear Drop Cells Not Reportable Ovalocytes Not Reportable Helmet Cells Not Reportable [place] Bodies Not Reportable Staples Rings Not Reportable [place] Cells Not Reportable Bite Cells Not Reportable Crenated Cell Not Reportable Elliptocytes Rare Acanthocytes (Spur) Not Reportable Rouleaux Not Reportable Hemoglobin C Crystals Not Reportable Schistocytes Not Reportable Malaria parasites Not Reportable Jose Bodies Not Reportable Hem Pathologist Commnt No APTT 44.6 H (24.2-36.6) Sec. Sodium (137-145) mmol/L Potassium (3.6-5.0) mmol/L Chloride (98-107) mmol/L Carbon Dioxide (22-30) mmol/L Anion Gap mmol/L BUN (7-17) mg/dL Creatinine (0.7-1.2) mg/dL Estimated GFR ml/min BUN/Creatinine Ratio % Glucose (65-100) mg/dL POC Glucose 238 H (70-105) Lactic Acid (0.7-2.0) mmol/L Calcium (8.4-10.2) mg/dL Total Bilirubin (0.1-1.2) mg/dL AST (5-40) units/L ALT (7-56) units/L Alkaline Phosphatase (35-129) units/L Total Protein (6.3-8.2) g/dL Albumin (3.9-5) g/dL Albumin/Globulin Ratio % 12/10/18 12/10/18 Range/Units 16:37 16:44 WBC (4.5-11.0) K/mm3 RBC (3.65-5.03) M/mm3 Hgb (10.1-14.3) gm/dl Hct (30.3-42.9) % MCV (79-97) fl MCH (28-32) pg MCHC (30-34) % RDW (13.2-15.2) % Plt Count (140-440) K/mm3 Lymph % (Auto) Add Manual Diff Total Counted Seg Neutrophils % Seg Neuts % (Manual) (40.0-70.0) % Band Neutrophils % % Lymphocytes % (Manual) (13.4-35.0) % Reactive Lymphs % (Man) % Monocytes % (Manual) (0.0-7.3) % Eosinophils % (Manual) (0.0-4.3) % Basophils % (Manual) (0.0-1.8) % Metamyelocytes % % Myelocytes % % Promyelocytes % % Blast Cells % % Nucleated RBC % Seg Neutrophils # Man (1.8-7.7) K/mm3 Band Neutrophils # K/mm3 Lymphocytes # (Manual) (1.2-5.4) K/mm3 Abs React Lymphs (Man) K/mm3 Monocytes # (Manual) (0.0-0.8) K/mm3 Eosinophils # (Manual) (0.0-0.4) K/mm3 Basophils # (Manual) (0.0-0.1) K/mm3 Metamyelocytes # K/mm3 Myelocytes # K/mm3 Promyelocytes # K/mm3 Blast Cells # K/mm3 WBC Morphology Hypersegmented Neuts Hyposegmented Neuts Hypogranular Neuts Smudge Cells Toxic Granulation Toxic Vacuolation Dohle Bodies Pelger-Huet Anomaly Fredrick Rods Platelet Estimate Clumped Platelets Plt Clumps, EDTA Large Platelets Giant Platelets Platelet Satelliting Plt Morphology Comment RBC Morphology Dimorphic RBCs Polychromasia Hypochromasia Poikilocytosis Anisocytosis Microcytosis Macrocytosis Spherocytes Pappenheimer Bodies Sickle Cells Target Cells Tear Drop Cells Ovalocytes Helmet Cells [place] Bodies Staples Rings [place] Cells Bite Cells Crenated Cell Elliptocytes Acanthocytes (Spur) Rouleaux Hemoglobin C Crystals Schistocytes Malaria parasites Jose Bodies Hem Pathologist Commnt APTT (24.2-36.6) Sec. Sodium 137 (137-145) mmol/L Potassium 3.3 L (3.6-5.0) mmol/L Chloride 98.6 (98-107) mmol/L Carbon Dioxide 25 (22-30) mmol/L Anion Gap 17 mmol/L BUN 16 (7-17) mg/dL Creatinine 1.6 H (0.7-1.2) mg/dL Estimated GFR 46 ml/min BUN/Creatinine Ratio 10 % Glucose 234 H (65-100) mg/dL POC Glucose (70-105) Lactic Acid 3.60 H* (0.7-2.0) mmol/L Calcium 8.9 (8.4-10.2) mg/dL Total Bilirubin 0.20 (0.1-1.2) mg/dL AST 453 H (5-40) units/L ALT 207 H (7-56) units/L Alkaline Phosphatase 162 H (35-129) units/L Total Protein 6.4 (6.3-8.2) g/dL Albumin 3.7 L (3.9-5) g/dL Albumin/Globulin Ratio 1.4 % - Medical Decision Making IV Solu-Medrol and Solu-Cortef ordered and given IV fluid boluses done IV antibiotics given Critical Care Time: Yes Critical care time in (mins) excluding proc time.: 35 Critical care attestation.: If time is entered above; I have spent that time in minutes in the direct care of this critically ill patient, excluding procedure time. ED Disposition Clinical Impression: Acute adrenal insufficiency Disposition: OP ADMIT IP TO THIS HOSP Is pt being admited?: Yes Does the pt Need Aspirin: No Condition: Fair Referrals: PRIMARY CARE,MD [Primary Care Provider] - 3-5 Days
[2018-12-10 16:47] LABS: Hematocrit 29.2 % (30.3-42.9); Hemoglobin 9.6 gm/dl (10.1-14.3); Mean Corpuscular HGB Conc 33 % (30-34); Mean Corpuscular Volume 80 fl (79-97); Platelet Count 221 K/mm3 (140-440); Red Blood Count 3.65 M/mm3 (3.65-5.03); Red Cell Distribution Width 15.6 % (13.2-15.2)
--- NOTE | 2018-12-10 17:00 | XRay Report ---
PROCEDURE: XR CHEST 1V AP TECHNIQUE: Chest radiograph single view. HISTORY: hypotensive COMPARISONS: None . FINDINGS: Frontal view of the chest was acquired and compared to prior examination of September 25, 2018. The heart is normal in size. The lungs appear clear. The pleura and mediastinum are within normal campos its. There appears to be a right-sided port with its tip at the cavoatrial junction. This was also pr esent on the prior exam. IMPRESSION: No active disease in the chest This document is electronically signed by Ramiro Hernandez MD., December 10 2018 04:58:19 PM ET
[2018-12-10 17:08] LABS: Albumin 3.7 g/dL (3.9-5); Calcium 8.9 mg/dL (8.4-10.2)
[2018-12-10 17:24] LABS: Basophils % (Manual) 0 % (0.0-1.8); Total Cells Counted 100
[2018-12-10 17:25] LABS: Anisocytosis 1+; Platelet Estimate Consistent w Auto; Target Cells Rare
[2018-12-10] MEDS ORDERED: SOLU-Medrol IV ONE (17:27)
[2018-12-10] MEDS ORDERED: NACL 0.9% 1000 ML 2,000 ML IV ONE (18:23)
[2018-12-10] MEDS ORDERED: PERCOCET 5/325 PO PRN (23:03)
[2018-12-10] MEDS ORDERED: ZOFRAN IV PRN (23:03)
[2018-12-10] MEDS ORDERED: SODIUM CHLORIDE FLUSH SYRINGE 10 ML IV PRN (23:03)
[2018-12-10] MEDS ORDERED: TYLENOL PO PRN (23:03)
--- NOTE | 2018-12-10 23:03 | History and Physical Report ---
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 Patient feels very weak especially when standing. Patient's blood pressure has been running low in the 60s over 40s. No fever or chills. Patient has been taking her medications including hydrocortisone twice a day and fludrocortisone regularly. No cough. Patient has history of seizures insulin-dependent diabetes and hypothyroidism. The patient presents to the emergency department with a chief complaint of not feeling well. Patient also complains of being dizzy upon standing for the last 2 days. Patient also states over the last couple days she's had increased frequency and thirst. Past Medical History Previous Medical History?: Yes Diabetes: Yes Renal Disease: Yes (Stage 2) Seizures: Yes hypotension, hypothyroidism, Goodwell's disease Surgical History Past Surgical History?: Yes Cholecystectomy: Yes Appendectomy: Yes Additional Surgical History: 4. port right chest wall Social History Smoking Status: Never Smoker Substance Use Type: None Family history Htn Medications Home Medications: Home Medications Medication Instructions Recorded Confirmed Last Taken Type Fludrocortisone [Florinef] 0.1 mg PO DAILY 09/23/18 12/10/18 11/16/18 09:00 History Hydrocortisone [Cortef TAB] 10 mg PO BID 09/23/18 12/10/18 11/16/18 09:00 His tory Levothyroxine Sodium [Synthroid] 125 mcg PO DAILY 09/23/18 12/10/18 11/18/18 10:01 History levETIRAcetam [Keppra TAB] 500 mg PO BID #60 tablet 10/26/18 12/10/18 11/16/18 09:00 Rx Sertraline [Zoloft] 50 mg PO DAILY 12/10/18 12/10/18 Unknown History Review of Systems ROS: Stated complaint: HYPERGLYCEMIA Other details as noted in HPI Comment: All other systems reviewed and negative Constitutional: denies: chills, fever Eyes: denies: eye pain, eye discharge, vision change ENT: denies: ear pain, throat pain Respiratory: denies: cough, shortness of breath, wheezing Cardiovascular: denies: chest pain, palpitations Endocrine: no symptoms reported Gastrointestinal: denies: abdominal pain, nausea, diarrhea Genitourinary: denies: urgency, dysuria, discharge Musculoskeletal: denies: back pain, joint swelling, arthralgia Skin: denies: rash, lesions Neurological: denies: headache, weakness, paresthesias Psychiatric: denies: anxiety, depression Hematological/Lymphatic: denies: easy bleeding, easy bruising Medications and Allergies Allergies Allergy/AdvReac Type Severity Reaction Status Date / Time Penicillins Allergy Angioedema Verified 09/20/18 15:10 vortioxetine Allergy Unknown Verified 09/20/18 15:10 [From Trintellix] ziprasidone [From Geodon] Allergy Angioedema Verified 09/20/18 15:10 vancomycin AdvReac Itching Verified 09/20/18 15:10 Home Medications Medication Instructions Recorded Confirmed Last Taken Type Fludrocortisone [Florinef] 0.1 mg PO DAILY 09/23/18 12/10/18 11/16/18 09:00 History Hydrocortisone [Cortef TAB] 10 mg PO BID 09/23/18 12/10/18 11/16/18 09:00 History Levothyroxine Sodium [Synthroid] 125 mcg PO DAILY 09/23/18 12/10/18 11/18/18 10:01 History levETIRAcetam [Keppra TAB] 500 mg PO BID #60 tablet 10/26/18 12/10/18 11/16/18 09:00 Rx Sertraline [Zoloft] 50 mg PO DAILY 12/10/18 12/10/18 Unknown History Exam - Constitutional Vitals: Temp Pulse Resp BP Pulse Ox 98.2 F 72 15 63/34 87 12/10/18 15:46 12/10/18 18:31 12/10/18 18:31 12/10/18 18:31 12/10/18 16:00 General appearance: Present: no acute distress, well-nourished - EENT Eyes: Present: PERRL ENT: hearing intact, clear oral mucosa - Neck Neck: Present: supple, normal ROM - Respiratory Respiratory effort: normal Respiratory: bilateral: CTA - Cardiovascular Heart rate: 80 Rhythm: regular Heart Sounds: Present: S1 & S2. Absent: rub, click - Extremities Extremities: no ischemia, pulses intact, pulses symmetrical, No edema Peripheral Pulses: within normal limits - Abdominal General gastrointestinal: Present: soft, non-tender, non-distended, normal bowel sounds Female genitourinary: Present: normal - Rectal Rectal Exam: deferred - Integumentary Integumentary: Present: clear, warm, dry - Musculoskeletal Musculoskeletal: gait normal, strength equal bilaterally - Psychiatric Psychiatric: appropriate mood/affect, intact judgment & insight - Neurologic Neurologic: CNII-XII intact, moves all extremities - Allied Health Allied health notes reviewed: nursing, case management Results - Labs CBC & Chem 7: 12/10/18 16:37 12/10/18 16:37 Labs: Laboratory Last Values WBC 6.5 K/mm3 (4.5-11.0) 12/10/18 16:37 RBC 3.65 M/mm3 (3.65-5.03) 12/10/18 16:37 Hgb 9.6 gm/dl (10.1-14.3) L 12/10/18 16:37 Hct 29.2 % (30.3-42.9) L 12/10/18 16:37 MCV 80 fl (79-97) 12/10/18 16:37 MCH 26 pg (28-32) L 12/10/18 16:37 MCHC 33 % (30-34) 12/10/18 16:37 RDW 15.6 % (13.2-15.2) H 12/10/18 16:37 Plt Count 221 K/mm3 (140-440) 12/10/18 16:37 Lymph % (Auto) Hoop Driving Machine Operator 12/10/18 16:37 Add Manual Diff Complete 12/10/18 16:37 Total Counted 100 12/10/18 16:37 Seg Neutrophils % Hoop Driving Machine Operator 12/10/18 16:37 Seg Neuts % (Manual) 28.0 % (40.0-70.0) L 12/10/18 16:37 0 % 12/10/18 16:37 66.0 % (13.4-35.0) H 12/10/18 16:37 Reactive Lymphs % (Man) 0 % 12/10/18 16:37 3.0 % (0.0-7.3) 12/10/18 16:37 3.0 % (0.0-4.3) 12/10/18 16:37 0 % (0.0-1.8) 12/10/18 16:37 0 % 12/10/18 16:37 0 % 12/10/18 16:37 0 % 12/10/18 16:37 0 % 12/10/18 16:37 Nucleated RBC % Not Reportable 12/10/18 16:37 Seg Neutrophils # Man 1.8 K/mm3 (1.8-7.7) 12/10/18 16:37 Band Neutrophils # 0.0 K/mm3 12/10/18 16:37 4.3 K/mm3 (1.2-5.4) 12/10/18 16:37 Abs React Lymphs (Man) 0.0 K/mm3 12/10/18 16:37 0.2 K/mm3 (0.0-0.8) 12/10/18 16:37 0.2 K/mm3 (0.0-0.4) 12/10/18 16:37 0.0 K/mm3 (0.0-0.1) 12/10/18 16:37 0.0 K/mm3 12/10/18 16:37 0.0 K/mm3 12/10/18 16:37 0.0 K/mm3 12/10/18 16:37 Blast Cells # 0.0 K/mm3 12/10/18 16:37 WBC Morphology Not Reportable 12/10/18 16:37 Hypersegmented Neuts Not Reportable 12/10/18 16:37 Hyposegmented Neuts Not Reportable 12/10/18 16:37 Hypogranular Neuts Not Reportable 12/10/18 16:37 Not Reportable 12/10/18 16:37 Not Reportable 12/10/18 16:37 Not Reportable 12/10/18 16:37 Not Reportable 12/10/18 16:37 Not Reportable 12/10/18 16:37 Not Reportable 12/10/18 16:37 Consistent w auto 12/10/18 16:37 Not Reportable 12/10/18 16:37 Plt Clumps, EDTA Not Reportable 12/10/18 16:37 Not Reportable 12/10/18 16:37 Not Reportable 12/10/18 16:37 Not Reportable 12/10/18 16:37 Plt Morphology Comment Not Reportable 12/10/18 16:37 RBC Morphology Not Reportable 12/10/18 16:37 Dimorphic RBCs Not Reportable 12/10/18 16:37 Not Reportable 12/10/18 16:37 Not Reportable 12/10/18 16:37 Not Reportable 12/10/18 16:37 1+ 12/10/18 16:37 Not Reportable 12/10/18 16:37 Not Reportable 12/10/18 16:37 Not Reportable 12/10/18 16:37 Not Reportable 12/10/18 16:37 Not Reportable 12/10/18 16:37 Rare 12/10/18 16:37 Not Reportable 12/10/18 16:37 Not Reportable 12/10/18 16:37 Not Reportable 12/10/18 16:37 Not Reportable 12/10/18 16:37 Not Reportable 12/10/18 16:37 Not Reportable 12/10/18 16:37 Not Reportable 12/10/18 16:37 Not Reportable 12/10/18 16:37 Rare 12/10/18 16:37 Acanthocytes (Spur) Not Reportable 12/10/18 16:37 Rouleaux Not Reportable 12/10/18 16:37 Not Reportable 12/10/18 16:37 Not Reportable 12/10/18 16:37 Not Reportable 12/10/18 16:37 Not Reportable 12/10/18 16:37 Hem Pathologist Commnt No 12/10/18 16:37 APTT 44.6 Sec. (24.2-36.6) H 12/10/18 16:37 Sodium 137 mmol/L (137-145) 12/10/18 16:37 Potassium 3.3 mmol/L (3.6-5.0) L 12/10/18 16:37 Chloride 98.6 mmol/L (98-107) 12/10/18 16:37 Carbon Dioxide 25 mmol/L (22-30) 12/10/18 16:37 17 mmol/L 12/10/18 16:37 BUN 16 mg/dL (7-17) 12/10/18 16:37 1.6 mg/dL (0.7-1.2) H 12/10/18 16:37 Estimated GFR 46 ml/min 12/10/18 16:37 10 % 12/10/18 16:37 Glucose 234 mg/dL (65-100) H 12/10/18 16:37 POC Glucose 238 (70-105) H 12/10/18 16:26 Lactic Acid 1.70 mmol/L (0.7-2.0) 12/10/18 19:20 Calcium 8.9 mg/dL (8.4-10.2) 12/10/18 16:37 0.20 mg/dL (0.1-1.2) 12/10/18 16:37 AST 453 units/L (5-40) H 12/10/18 16:37 ALT 207 units/L (7-56) H 12/10/18 16:37 162 units/L (35-129) H 12/10/18 16:37 6.4 g/dL (6.3-8.2) 12/10/18 16:37 3.7 g/dL (3.9-5) L 12/10/18 16:37 1.4 % 12/10/18 16:37 Short CBC 12/10/18 Range/Units 16:37 WBC 6.5 (4.5-11.0) K/mm3 Hgb 9.6 L (10.1-14.3) gm/dl Hct 29.2 L (30.3-42.9) % Plt Count 221 (140-440) K/mm3 BMP 12/10/18 16:37 Sodium 137 Potassium 3.3 L Chloride 98.6 Carbon Dioxide 25 BUN 16 Creatinine 1.6 H Glucose 234 H Calcium 8.9 Liver Function 12/10/18 Range/Units 16:37 Total Bilirubin 0.20 (0.1-1.2) mg/dL AST 453 H (5-40) units/L ALT 207 H (7-56) units/L Alkaline Phosphatase 162 H (35-129) units/L Albumin 3.7 L (3.9-5) g/dL - Imaging and Cardiology Chest x-ray: report reviewed Imaging and Cardiology: CXR IMPRESSION: No active disease in the chest Assessment and Plan Advance Directives: Yes (full code) VTE prophylaxis?: Chemical Plan of care discussed with patient/family: Yes - Patient Problems (1) Acute adrenal insufficiency Current Visit: Yes Status: Acute Plan to address problem: Patient is on hydrocortisone 10 mg twice a day and fludrocortisone 0.1 mg once a day. Patient is compliant. Patient has been hypotensive for last 2 days. We will check cortisol level at 6 AM. IV fluids for now. Patient counseled about compliance Patient to follow with endocrinology as outpatient. (2) Hypotension Current Visit: Yes Status: Acute Plan to address problem: 1 dose of IV Solu-Medrol given which is equal to 40 mg. IV fluids for now----normal saline at 100 mL per hour (3) Hypokalemia Current Visit: Yes Status: Acute Plan to address problem: Supplemented (4) Acute kidney injury Current Visit: Yes Status: Acute Plan to address problem: Possible ATN IV fluids for now (5) Insulin dependent diabetes mellitus Current Visit: Yes Status: Chronic Plan to address problem: Patient on basal bolus insulin Increase her basal insulin to 20 units (6) Seizure disorder Current Visit: Yes Status: Acute Plan to address problem: Continue Keppra (7) Hypothyroidism Current Visit: Yes Status: Chronic Qualifiers: Hypothyroidism type: acquired Qualified Code(s): E03.9 - Hypothyroidism, unspecified Plan to address problem: Check TSH Adjust Synthyroid dose if necessary (8) Transaminitis Current Visit: Yes Status: Acute Plan to address problem: Check acute hepatitis profile (9) Depression Current Visit: Yes Status: Chronic Qualifiers: Depression Type: unspecified Qualified Code(s): F32.9 - Major depressive disorder, single episode, unspecified Plan to address problem: Continue sertraline (10) Anemia Current Visit: Yes Status: Chronic Qualifiers: Anemia type: unspecified type Qualified Code(s): D64.9 - Anemia, u nspecified Plan to address problem: Anemia workup Check iron levels and B12 and folic acid (11) DVT prophylaxis Current Visit: Yes Status: Acute Plan to address problem: Lovenox initiated and GI prophylaxis initiated
[2018-12-11] MEDS: NACL 0.9% 1000 ML 1,000 ML IV SCH ×3 (00:33→22:31)
[2018-12-11] MEDS: PEPCID IV SCH ×3 (00:35→22:20)
[2018-12-11] MEDS: SODIUM CHLORIDE FLUSH SYRINGE 10 ML IV SCH ×3 (00:35→22:20)
[2018-12-11] MEDS ORDERED: SYNTHROID PO SCH (06:00)
[2018-12-11] MEDS: KEPPRA PO SCH ×3 (06:55→22:20)
[2018-12-11] MEDS: HumaLOG SUB-Q SCH ×4 (07:30→22:19)
[2018-12-11 07:31] LABS: Basophils % (Auto) 0.4 % (0.0-1.8); Hematocrit 27.2 % (30.3-42.9); Hemoglobin 8.8 gm/dl (10.1-14.3); Lymphocytes # (Auto) 0.9 K/mm3 (1.2-5.4); Lymphocytes % (Auto) 13.5 % (13.4-35.0); Mean Corpuscular HGB Conc 32 % (30-34); Mean Corpuscular Volume 80 fl (79-97); Monocytes % (Auto) 0.5 % (0.0-7.3); Platelet Count 191 K/mm3 (140-440); Red Blood Count 3.38 M/mm3 (3.65-5.03); Red Cell Distribution Width 15.7 % (13.2-15.2)
[2018-12-11 08:00] LABS: % Iron Saturation 5.37 %; Albumin 3.3 g/dL (3.9-5); Calcium 6.8 mg/dL (8.4-10.2)
[2018-12-11] MEDS: FLORINEF PO SCH (08:00)
[2018-12-11] MEDS ORDERED: CORTEF PO SCH (08:00)
[2018-12-11] MEDS: CORTEF PO SCH ×2 (08:00→18:07)
[2018-12-11] MEDS ORDERED: HumaLOG SUB-Q ONE (08:18)
[2018-12-11] MEDS: LANTUS SUB-Q SCH ×2 (10:00→22:22)
[2018-12-11] MEDS: ZOLOFT PO SCH (10:15)
[2018-12-11 12:19] LABS: Hepatitis B Surface Antigen Non-Reactive (Negative); Hepatitis C Virus Antibody Non-Reactive (NonReactive)
[2018-12-11] MEDS: MORPHINE IV PRN ×2 (16:04→22:20)
--- NOTE | 2018-12-11 16:30 | Progress Note ---
Subjective Date of service: 12/11/18 Principal diagnosis: weakness and dizziness Interval history: 28-year-old female with history of insulin-dependent diabetes mellitus and Sabin's disease is alert and oriented and resting in the bed She is not in any distress and she says she feels a whole lot better I discussed the lab results with her and the A1c result of 12.6 She states that it is better than before She offers no specific complaints at this time She does have history of pain in the legs and feet which is chronic and states that gabapentin does not work He denies any nausea abdominal pain dizziness or weakness On examination HEENT normocephalic pupils are round reacting to light throat is clear Neck is supple no significant adenopathy no thyromegaly Lungs clear to auscultation Heart S1-S2 regular rate and rhythm Abdomen is soft nontender no hepatosplenomegaly Extremities there is no leg edema 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 rash 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 DVT prophylaxis: Heparin A/P: Dizziness and weakness: Unclear if patient was having hypoglycemic episodes However she states that her blood pressure was running low We will order orthostatic blood pressure measurements Currently her blood pressure is around 90-94 systolic Uncontrolled insulin-dependent diabetes mellitus since the age of 6 Patient states that she takes placebo 8 units along with sliding scale coverage Based on her blood sugars which are extremely high, I would start the patient on Lantus insulin 10 units twice daily and continue sliding-scale coverage Discussed with patient her blood sugar levels Diabetic peripheral neuropathy Patient states that nothing works for her pain in the feet and legs Patient is requesting walker for ambulation as she keeps stumbling I discussed this with the onsite case manager History of Sabin's disease 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 Hypothyroidism TSH results reviewed Increase Synthroid to 150 g Normocytic anemia H&H results reviewed Monitor Objective - Constitutional Vitals: Vital Signs - 12hr 12/11/18 12/11/18 12/11/18 04:54 12:08 12:12 Temperature 97.7 F 98.0 F 98.0 F Pulse Rate 78 79 105 H Respiratory 24 16 18 Rate Blood Pressure 86/56 106/78 96/81 O2 Sat by Pulse 98 95 100 Oximetry - Labs CBC & Chem 7: 12/11/18 06:45 12/11/18 06:45 Labs: Abnormal lab results 12/10/18 12/10/18 12/10/18 Range/Units 16:35 16:37 16:37 RBC (3.65-5.03) M/mm3 Hgb 9.6 L (10.1-14.3) gm/dl Hct 29.2 L (30.3-42.9) % MCH 26 L (28-32) pg RDW 15.6 H (13.2-15.2) % Lymph # (1.2-5.4) K/mm3 Seg Neutrophils % (40.0-70.0) % Seg Neuts % (Manual) 28.0 L (40.0-70.0) % Lymphocytes % (Manual) 66.0 H (13.4-35.0) % APTT 44.6 H (24.2-36.6) Sec. Sodium (137-145) mmol/L Potassium (3.6-5.0) mmol/L Carbon Dioxide (22-30) mmol/L Creatinine (0.7-1.2) mg/dL Glucose (65-100) mg/dL POC Glucose (70-105) Hemoglobin A1c 12.6 H (4-6) % Lactic Acid (0.7-2.0) mmol/L Calcium (8.4-10.2) mg/dL Iron (37-170) ug/dL TIBC (250-450) mcg/dL Transferrin (192-382) mg/dl AST (5-40) units/L ALT (7-56) units/L Alkaline Phosphatase (35-129) units/L Total Protein (6.3-8.2) g/dL Albumin (3.9-5) g/dL Vitamin B12 (211-911) pg/mL TSH (0.270-4.200) mlU/mL 12/10/18 12/10/18 12/11/18 Range/Units 16:37 16:44 06:45 RBC 3.38 L (3.65-5.03) M/mm3 Hgb 8.8 L (10.1-14.3) gm/dl Hct 27.2 L (30.3-42.9) % MCH 26 L (28-32) pg RDW 15.7 H (13.2-15.2) % Lymph # 0.9 L (1.2-5.4) K/mm3 Seg Neutrophils % 85.6 H (40.0-70.0) % Seg Neuts % (Manual) (40.0-70.0) % Lymphocytes % (Manual) (13.4-35.0) % APTT (24.2-36.6) Sec. Sodium (137-145) mmol/L Potassium 3.3 L (3.6-5.0) mmol/L Carbon Dioxide (22-30) mmol/L Creatinine 1.6 H (0.7-1.2) mg/dL Glucose 234 H (65-100) mg/dL POC Glucose (70-105) Hemoglobin A1c (4-6) % Lactic Acid 3.60 H* (0.7-2.0) mmol/L Calcium (8.4-10.2) mg/dL Iron (37-170) ug/dL TIBC (250-450) mcg/dL Transferrin (192-382) mg/dl AST 453 H (5-40) units/L ALT 207 H (7-56) units/L Alkaline Phosphatase 162 H (35-129) units/L Total Protein (6.3-8.2) g/dL Albumin 3.7 L (3.9-5) g/dL Vitamin B12 (211-911) pg/mL TSH (0.270-4.200) mlU/mL 12/11/18 12/11/18 12/11/18 Range/Units 06:45 06:45 06:45 RBC (3.65-5.03) M/mm3 Hgb (10.1-14.3) gm/dl Hct (30.3-42.9) % MCH (28-32) pg RDW (13.2-15.2) % Lymph # (1.2-5.4) K/mm3 Seg Neutrophils % (40.0-70.0) % Seg Neuts % (Manual) (40.0-70.0) % Lymphocytes % (Manual) (13.4-35.0) % APTT (24.2-36.6) Sec. Sodium 133 L (137-145) mmol/L Potassium (3.6-5.0) mmol/L Carbon Dioxide 18 L D (22-30) mmol/L Creatinine 1.4 H (0.7-1.2) mg/dL Glucose 516 H* (65-100) mg/dL POC Glucose (70-105) Hemoglobin A1c (4-6) % Lactic Acid (0.7-2.0) mmol/L Calcium 6.8 L D (8.4-10.2) mg/dL Iron 11 L (37-170) ug/dL TIBC 205 L (250-450) mcg/dL Transferrin 187 L (192-382) mg/dl AST 406 H (5-40) units/L ALT 175 H (7-56) units/L Alkaline Phosphatase 137 H (35-129) units/L Total Protein 5.7 L (6.3-8.2) g/dL Albumin 3.3 L (3.9-5) g/dL Vitamin B12 (211-911) pg/mL TSH 10.810 H (0.270-4.200) mlU/mL 12/11/18 12/11/18 12/11/18 Range/Units 06:45 07:51 11:03 RBC (3.65-5.03) M/mm3 Hgb (10.1-14.3) gm/dl Hct (30.3-42.9) % MCH (28-32) pg RDW (13.2-15.2) % Lymph # (1.2-5.4) K/mm3 Seg Neutrophils % (40.0-70.0) % Seg Neuts % (Manual) (40.0-70.0) % Lymphocytes % (Manual) (13.4-35.0) % APTT (24.2-36.6) Sec. Sodium (137-145) mmol/L Potassium (3.6-5.0) mmol/L Carbon Dioxide (22-30) mmol/L Creatinine (0.7-1.2) mg/dL Glucose (65-100) mg/dL POC Glucose 490 H 456 H (70-105) Hemoglobin A1c (4-6) % Lactic Acid (0.7-2.0) mmol/L Calcium (8.4-10.2) mg/dL Iron (37-170) ug/dL TIBC (250-450) mcg/dL Transferrin (192-382) mg/dl AST (5-40) units/L ALT (7-56) units/L Alkaline Phosphatase (35-129) units/L Total Protein (6.3-8.2) g/dL Albumin (3.9-5) g/dL Vitamin B12 1904 H (211-911) pg/mL TSH (0.270-4.200) mlU/mL
[2018-12-11] MEDS ORDERED: LANTUS SUB-Q SCH ×2 (22:00)
[2018-12-11] MEDS: LOVENOX SUB-Q SCH (22:20)
[2018-12-12] MEDS: SYNTHROID PO SCH (06:30)
[2018-12-12 07:04] LABS: Hematocrit 21.5 % (30.3-42.9); Hemoglobin 7.1 gm/dl (10.1-14.3); Mean Corpuscular HGB Conc 33 % (30-34); Mean Corpuscular Volume 80 fl (79-97); Platelet Count 177 K/mm3 (140-440); Red Blood Count 2.69 M/mm3 (3.65-5.03); Red Cell Distribution Width 15.8 % (13.2-15.2)
[2018-12-12] MEDS: HumaLOG SUB-Q SCH ×4 (07:30→22:00)
[2018-12-12] MEDS: CORTEF PO SCH ×2 (08:00→17:33)
[2018-12-12] MEDS: NACL 0.9% 1000 ML 1,000 ML IV SCH (09:20)
[2018-12-12] MEDS: LANTUS SUB-Q SCH ×2 (09:20→22:00)
[2018-12-12] MEDS: KEPPRA PO SCH ×2 (09:22→22:26)
[2018-12-12] MEDS: ZOLOFT PO SCH (09:22)
[2018-12-12] MEDS: SODIUM CHLORIDE FLUSH SYRINGE 10 ML IV SCH ×2 (09:23→22:00)
[2018-12-12] MEDS: PEPCID IV SCH (09:23)
[2018-12-12] MEDS: FLORINEF PO SCH (09:23)
[2018-12-12 11:40] LABS: Calcium 6.6 mg/dL (8.4-10.2)
[2018-12-12] MEDS: MORPHINE IV PRN (14:18)
--- NOTE | 2018-12-12 15:41 | Progress Note ---
Assessment and Plan - Patient Problems (1) Acute adrenal insufficiency Current Visit: Yes Status: Acute Plan to address problem: Patient is on hydrocortisone 10 mg twice a day and fludrocortisone 0.1 mg once a day. Patient is compliant. Patient has been hypotensive for last 2 days. We will check cortisol level at 6 AM. IV fluids for now. Patient counseled about compliance Patient to follow with endocrinology as outpatient. (2) Hypotension Current Visit: Yes Status: Acute Plan to address problem: 1 dose of IV Solu-Medrol given which is equal to 40 mg. IV fluids for now----normal saline at 100 mL per hour Cortisol level pending will increase Hydrocortisone dosage by 5 mg (3) Hypokalemia Current Visit: Yes Status: Acute Plan to address problem: Supplemented (4) Acute kidney injury Current Visit: Yes Status: Acute Plan to address problem: Possible ATN IV fluids for now Improved to normal (5) Insulin dependent diabetes mellitus Current Visit: Yes Status: Chronic Plan to address problem: Patient on basal bolus insulin Increase her basal insulin to 20 units (6) Seizure disorder Current Visit: Yes Status: Acute Plan to address problem: Continue Keppra (7) Hypothyroidism Current Visit: Yes Status: Chronic Qualifiers: Hypothyroidism type: acquired Qualified Code(s): E03.9 - Hypothyroidism, unspecified Plan to address problem: Check TSH Adjust Synthyroid dose if necessary (8) Transaminitis Current Visit: Yes Status: Acute Plan to address problem: Acute hepatitis profile ---Negative (9) Depression Current Visit: Yes Status: Chronic Qualifiers: Depression Type: unspecified Qualified Code(s): F32.9 - Major depressive disorder, single episode, unspecified Plan to address problem: Continue sertraline (10) Anemia Current Visit: Yes Status: Chronic Qualifiers: Anemia type: unspecified type Qualified Code(s): D64.9 - Anemia, unspecified Plan to address problem: Anemia workup Check iron levels and B12 and folic acid (11) DVT prophylaxis Current Visit: Yes Status: Acute Plan to address problem: Lovenox initiated and GI prophylaxis initiated Subjective Date of service: 12/12/18 Principal diagnosis: weakness and dizziness Interval history: 28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 Patient feels very weak especially when standing. Patient's blood pressure has been running low in the 60s over 40s. No fever or chills. Patient has been taking her medications including hydrocortisone twice a day and fludrocortisone regularly. No cough. Patient has history of seizures insulin-dependent diabetes and hypothyroidism. The patient presents to the emergency department with a chief complaint of not feeling well. Patient also complains of being dizzy upon standing for the last 2 days. Patient also states over the last couple days she's had increased frequency and thirst. Symptomatically better today Objective - Constitutional Vitals: Vital Signs - 12hr 12/12/18 12/12/18 06:21 11:50 Temperature 98.0 F Pulse Rate 78 Respiratory 18 Rate Blood Pressure 89/58 Blood Pressure 100/70 [Left] O2 Sat by Pulse 98 Oximetry General appearance: Present: no acute distress, well-nourished - EENT Eyes: PERRL, EOM intact ENT: hearing intact, clear oral mucosa Ears: bilateral: normal - Neck Neck: supple, normal ROM - Respiratory Respiratory effort: normal Respiratory: bilateral: CTA - Breasts Breasts: normal - Cardiovascular Rhythm: regular Heart Sounds: Present: S1 & S2. Absent: gallop, rub Extremities: pulses intact, No edema, normal color, Full ROM - Gastrointestinal General gastrointestinal: Present: soft, non-tender, non-distended, normal bowel sounds - Genitourinary Female genitourinary: normal - Integumentary Integumentary: clear, warm, dry - Musculoskeletal Musculoskeletal: 1, strength equal bilaterally - Neurologic Neurologic: moves all extremities - Psychiatric Psychiatric: memory intact, appropriate mood/affect, intact judgment & insight - Labs CBC & Chem 7: 12/13/18 05:30 12/13/18 05:30 Labs: Abnormal lab results 12/11/18 12/11/18 12/12/18 Range/Units 16:31 21:02 06:45 RBC 2.69 L (3.65-5.03) M/mm3 Hgb 7.1 L (10.1-14.3) gm/dl Hct 21.5 L (30.3-42.9) % MCH 26 L (28-32) pg RDW 15.8 H (13.2-15.2) % Potassium (3.6-5.0) mmol/L Chloride (98-107) mmol/L Carbon Dioxide (22-30) mmol/L Creatinine (0.7-1.2) mg/dL Glucose (65-100) mg/dL POC Glucose 194 H 108 H (70-105) Calcium (8.4-10.2) mg/dL 12/12/18 12/12/18 12/12/18 Range/Units 07:33 11:06 11:15 RBC (3.65-5.03) M/mm3 Hgb (10.1-14.3) gm/dl Hct (30.3-42.9) % MCH (28-32) pg RDW (13.2-15.2) % Potassium 3.0 L D (3.6-5.0) mmol/L Chloride 107.3 H (98-107) mmol/L Carbon Dioxide 20 L (22-30) mmol/L Creatinine 1.4 H (0.7-1.2) mg/dL Glucose 120 H (65-100) mg/dL POC Glucose 154 H 142 H (70-105) Calcium 6.6 L (8.4-10.2) mg/dL
[2018-12-12] MEDS ORDERED: K-DUR PO ONE (16:00)
[2018-12-12] MEDS: D50W (25GM) Syringe IV PRN (22:00)
[2018-12-12] MEDS: LOVENOX SUB-Q SCH (22:26)
[2018-12-12] MEDS: PEPCID PO SCH (22:26)
[2018-12-13 05:43] LABS: Basophils % (Auto) 0.4 % (0.0-1.8); Hematocrit 21.2 % (30.3-42.9); Hemoglobin 6.9 gm/dl (10.1-14.3); Lymphocytes # (Auto) 2.9 K/mm3 (1.2-5.4); Mean Corpuscular HGB Conc 33 % (30-34); Mean Corpuscular Volume 81 fl (79-97); Monocytes # (Auto) 0.1 K/mm3 (0.0-0.8); Monocytes % (Auto) 2.3 % (0.0-7.3); Platelet Count 173 K/mm3 (140-440); Red Blood Count 2.63 M/mm3 (3.65-5.03); Red Cell Distribution Width 16.2 % (13.2-15.2)
[2018-12-13 06:06] LABS: Alanine Aminotransferase 102 units/L (7-56); Albumin 2.5 g/dL (3.9-5); BUN/Creatinine Ratio 8; Blood Urea Nitrogen 10 mg/dL (7-17); Calcium 6.3 mg/dL (8.4-10.2); Hemolysis Index 10
[2018-12-13] MEDS: SYNTHROID PO SCH (06:24)
[2018-12-13] MEDS ORDERED: NACL 0.9% 500 ML 500 ML IV ONE (07:05)
[2018-12-13] MEDS: CORTEF PO SCH ×2 (08:28→19:02)
[2018-12-13] MEDS: HumaLOG SUB-Q SCH ×4 (08:29→23:12)
[2018-12-13] MEDS: D50W (25GM) Syringe IV PRN (09:50)
[2018-12-13] MEDS: LANTUS SUB-Q SCH ×3 (09:57→23:12)
[2018-12-13] MEDS: ZOLOFT PO SCH (09:57)
[2018-12-13] MEDS: PEPCID PO SCH ×2 (09:57→23:13)
[2018-12-13] MEDS: SODIUM CHLORIDE FLUSH SYRINGE 10 ML IV SCH ×2 (09:57→23:14)
[2018-12-13] MEDS: FLORINEF PO SCH (09:57)
[2018-12-13] MEDS: KEPPRA PO SCH ×2 (09:57→23:13)
--- NOTE | 2018-12-13 11:57 | Progress Note ---
Assessment and Plan Assessment and plan: 28-year-old female diagnosed with [place]'s disease at the age of 23 comes in for feeling dizzy and weak for the last 2 days. Patient feels very weak especially when standing. Patient's blood pressure has been running low in the 60s over 40s. No fever or chills. Patient has been taking her medications including hydrocortisone twice a day and fludrocortisone regularly. No cough. Patient has history of seizures insulin-dependent diabetes and hypothyroidism. The patient presents to the emergency department with a chief complaint of not feeling well. Patient also complains of being dizzy upon standing for the last 2 days. Patient also states over the last couple days she's had increased frequency and thirst. she at my visit did not want to turn around look at me or respond (1) Acute adrenal insufficiency Current Visit: Yes Status: Acute Plan to address problem: Patient is on hydrocortisone 10 mg twice a day and fludrocortisone 0.1 mg once a day. Patient is compliant. Patient has been hypotensive for last 2 days. We will check cortisol level at 6 AM. IV fluids for now. Patient counseled about compliance Patient to follow with endocrinology as outpatient. (2) Hypotension Current Visit: Yes Status: Acute Plan to address problem: 1 dose of IV Solu-Medrol given which is equal to 40 mg. IV fluids for now----normal saline at 100 mL per hour Cortisol level pending will increase Hydrocortisone dosage by 5 mg (3) Hypokalemia Current Visit: Yes Status: Acute Plan to address problem: Supplemented (4) Acute kidney injury Current Visit: Yes Status: Acute Plan to address problem: Possible ATN IV fluids for now Improved to normal (5) Insulin dependent diabetes mellitus Current Visit: Yes Status: Chronic Plan to address problem: Patient on basal bolus insulin Adjust insulin due to hypoglycemia (6) Seizure disorder Current Visit: Yes Status: Acute Plan to address problem: Continue Keppra (7) Hypothyroidism Current Visit: Yes Status: Chronic Qualifiers: Hypothyroidism type: acquired Qualified Code(s): E03.9 - Hypothyroidism, unspecified Plan to address problem: Check TSH Adjust Synthyroid dose if necessary (8) Transaminitis Current Visit: Yes Status: Acute Plan to address problem: Acute hepatitis profile ---Negative (9) Depression Current Visit: Yes Status: Chronic Qualifiers: Depression Type: unspecified Qualified Code(s): F32.9 - Major depressive disorder, single episode, unspecified Plan to address problem: Continue sertraline (10) Anemia Transfuse 1 Unit PRBC and monitor Anemia workup Check iron levels and B12 and folic acid (11) DVT prophylaxis Current Visit: Yes Status: Acute Plan to address problem: Lovenox initiated and GI prophylaxis initiated History Interval history: Patient seen and examined, no so much interested to speak with me, turned her back, would not respond to my question. Nursing staff states that she voiced no complaints. Hospitalist Physical - Physical exam Narrative exam: VITAL SIGNS: Reviewed. GENERAL: The patient appeared well nourished and normally developed, pale appearing. Vital signs as documented. HEAD: No signs of head trauma. EYES: Pupils are equal. Extraocular motions intact. EARS: Hearing grossly intact. MOUTH: Oropharynx is normal. NECK: No adenopathy, no JVD. CHEST: Chest with clear breath sounds bilaterally. No wheezes, rales, or rhonchi. CARDIAC: Regular rate and rhythm. S1 and S2, without murmurs, gallops, or rubs. VASCULAR: No Edema. Peripheral pulses normal and equal in all extremities. ABDOMEN: Soft, non tender and non distended. No rebound or guarding, and no masses palpated. Bowel Sounds normal. MUSCULOSKELETAL: Good range of motion of all major joints. Extremities without clubbing, cyanosis or edema. NEUROLOGIC EXAM: Alert and oriented x 3 No focal sensory or strength deficits. Speech normal. Follows commands. PSYCHIATRIC: Mood normal. SKIN: No rash or lesions except noted tattoo - Constitutional Vitals: Temp Pulse Resp BP Pulse Ox 98.0 F 69 16 82/49 97 12/13/18 05:52 12/13/18 05:52 12/13/18 05:52 12/13/18 05:52 12/13/18 05:52 General appearance: Present: no acute distress, well-nourished Results - Labs CBC & Chem 7: 12/14/18 06:00 12/14/18 06:00 Labs: Laboratory Last Values WBC 5.4 K/mm3 (4.5-11.0) 12/13/18 05:30 RBC 2.63 M/mm3 (3.65-5.03) L 12/13/18 05:30 Hgb 6.9 gm/dl (10.1-14.3) L 12/13/18 05:30 Hct 21.2 % (30.3-42.9) L 12/13/18 05:30 MCV 81 fl (79-97) 12/13/18 05:30 MCH 26 pg (28-32) L 12/13/18 05:30 MCHC 33 % (30-34) 12/13/18 05:30 RDW 16.2 % (13.2-15.2) H 12/13/18 05:30 Plt Count 173 K/mm3 (140-440) 12/13/18 05:30 Lymph % (Auto) 53.0 % (13.4-35.0) H 12/13/18 05:30 [place] % (Auto) 2.3 % (0.0-7.3) 12/13/18 05:30 Eos % (Auto) 0.0 % (0.0-4.3) 12/13/18 05:30 Baso % (Auto) 0.4 % (0.0-1.8) 12/13/18 05:30 Lymph # 2.9 K/mm3 (1.2-5.4) 12/13/18 05:30 [place] # 0.1 K/mm3 (0.0-0.8) 12/13/18 05:30 Eos # 0.0 K/mm3 (0.0-0.4) 12/13/18 05:30 Baso # 0.0 K/mm3 (0.0-0.1) 12/13/18 05:30 Add Manual Diff Complete 12/10/18 16:37 Total Counted 100 12/10/18 16:37 Seg Neutrophils % 44.3 % (40.0-70.0) 12/13/18 05:30 Seg Neuts % (Manual) 28.0 % (40.0-70.0) L 12/10/18 16:37 0 % 12/10/18 16:37 66.0 % (13.4-35.0) H 12/10/18 16:37 Reactive Lymphs % (Man) 0 % 12/10/18 16:37 3.0 % (0.0-7.3) 12/10/18 16:37 3.0 % (0.0-4.3) 12/10/18 16:37 0 % (0.0-1.8) 12/10/18 16:37 0 % 12/10/18 16:37 0 % 12/10/18 16:37 0 % 12/10/18 16:37 0 % 12/10/18 16:37 Nucleated RBC % Not Reportable 12/10/18 16:37 Seg Neutrophils # 2.4 K/mm3 (1.8-7.7) 12/13/18 05:30 Seg Neutrophils # Man 1.8 K/mm3 (1.8-7.7) 12/10/18 16:37 Band Neutrophils # 0.0 K/mm3 12/10/18 16:37 4.3 K/mm3 (1.2-5.4) 12/10/18 16:37 Abs React Lymphs (Man) 0.0 K/mm3 12/10/18 16:37 0.2 K/mm3 (0.0-0.8) 12/10/18 16:37 0.2 K/mm3 (0.0-0.4) 12/10/18 16:37 0.0 K/mm3 (0.0-0.1) 12/10/18 16:37 0.0 K/mm3 12/10/18 16:37 0.0 K/mm3 12/10/18 16:37 0.0 K/mm3 12/10/18 16:37 Blast Cells # 0.0 K/mm3 12/10/18 16:37 WBC Morphology Not Reportable 12/10/18 16:37 Hypersegmented Neuts Not Reportable 12/10/18 16:37 Hyposegmented Neuts Not Reportable 12/10/18 16:37 Hypogranular Neuts Not Reportable 12/10/18 16:37 Not Reportable 12/10/18 16:37 Not Reportable 12/10/18 16:37 Not Reportable 12/10/18 16:37 Not Reportable 12/10/18 16:37 Not Reportable 12/10/18 16:37 Not Reportable 12/10/18 16:37 Consistent w auto 12/10/18 16:37 Not Reportable 12/10/18 16:37 Plt Clumps, EDTA Not Reportable 12/10/18 16:37 Not Reportable 12/10/18 16:37 Not Reportable 12/10/18 16:37 Not Reportable 12/10/18 16:37 Plt Morphology Comment Not Reportable 12/10/18 16:37 RBC Morphology Not Reportable 12/10/18 16:37 Dimorphic RBCs Not Reportable 12/10/18 16:37 Not Reportable 12/10/18 16:37 Not Reportable 12/10/18 16:37 Not Reportable 12/10/18 16:37 1+ 12/10/18 16:37 Not Reportable 12/10/18 16:37 Not Reportable 12/10/18 16:37 Not Reportable 12/10/18 16:37 Not Reportable 12/10/18 16:37 Not Reportable 12/10/18 16:37 Rare 12/10/18 16:37 Not Reportable 12/10/18 16:37 Not Reportable 12/10/18 16:37 Not Reportable 12/10/18 16:37 Not Reportable 12/10/18 16:37 Not Reportable 12/10/18 16:37 Not Reportable 12/10/18 16:37 Not Reportable 12/10/18 16:37 Not Reportable 12/10/18 16:37 Rare 12/10/18 16:37 Acanthocytes (Spur) Not Reportable 12/10/18 16:37 Rouleaux Not Reportable 12/10/18 16:37 Not Reportable 12/10/18 16:37 Not Reportable 12/10/18 16:37 Not Reportable 12/10/18 16:37 Not Reportable 12/10/18 16:37 Hem Pathologist Commnt No 12/10/18 16:37 APTT 44.6 Sec. (24.2-36.6) H 12/10/18 16:37 Sodium 144 mmol/L (137-145) 12/13/18 05:30 Potassium 3.4 mmol/L (3.6-5.0) L 12/13/18 05:30 Chloride 113.7 mmol/L (98-107) H 12/13/18 05:30 Carbon Dioxide 21 mmol/L (22-30) L 12/13/18 05:30 13 mmol/L 12/13/18 05:30 BUN 10 mg/dL (7-17) 12/13/18 05:30 1.2 mg/dL (0.7-1.2) 12/13/18 05:30 Estimated GFR > 60 ml/min 12/13/18 05:30 8 % 12/13/18 05:30 Glucose 157 mg/dL (65-100) H 12/13/18 05:30 POC Glucose 62 (70-105) L 12/13/18 09:51 12.6 % (4-6) H 12/10/18 16:35 Lactic Acid 0.90 mmol/L (0.7-2.0) 12/11/18 06:45 Calcium 6.3 mg/dL (8.4-10.2) L 12/13/18 05:30 Iron 11 ug/dL (37-170) L 12/11/18 06:45 TIBC 205 mcg/dL (250-450) L 12/11/18 06:45 % Saturation 5.37 % 12/11/18 06:45 187 mg/dl (192-382) L 12/11/18 06:45 < 0.20 mg/dL (0.1-1.2) 12/13/18 05:30 AST 184 units/L (5-40) H 12/13/18 05:30 ALT 102 units/L (7-56) H 12/13/18 05:30 83 units/L (35-129) 12/13/18 05:30 4.3 g/dL (6.3-8.2) L D 12/13/18 05:30 2.5 g/dL (3.9-5) L 12/13/18 05:30 1.4 % 12/13/18 05:30 Vitamin B12 1904 pg/mL (211-911) H 12/11/18 06:45 TSH 10.810 mlU/mL (0.270-4.200) H 12/11/18 06:45 Hepatitis A IgM Ab Non-reactive (NonReactive) 12/11/18 06:45 Hep Bs Antigen Non-reactive (Negative) 12/11/18 06:45 Hep B Core IgM Ab Non-reactive (NonReactive) 12/11/18 06:45 Non-reactive (NonReactive) 12/11/18 06:45 Blood Type O POSITIVE 12/13/18 08:22 Antibody Screen Negative 12/13/18 08:22 Crossmatch See Detail 12/13/18 08:22 Active Medications - Current Medications Current Medications: Generic Name Dose Route Start Last Admin Trade Name Freq PRN Reason Stop Dose Admin Acetaminophen 650 mg 12/10/18 23:03 Tylenol PO Q4H PRN Pain MILD(1-3)/Fever >100.5/STEWARD Dextrose 50 ml 12/12/18 21:59 12/13/18 09:50 D50w (25gm) Syringe IV 50 ml ONCE PRN Administration Hypocalcemia Enoxaparin Sodium 40 mg 12/11/18 22:00 12/12/18 22:26 Lovenox SUB-Q Not Given QDAY@2200 MARINO Famotidine 20 mg 12/12/18 22:00 12/13/18 09:57 Pepcid PO 20 mg BID MARINO Administration Fludrocortisone Acetate 0.1 mg 12/11/18 08:00 12/13/18 09:57 Florinef PO 0.1 mg DAILY MARINO Administration Hydrocortisone Acetate 10 mg 12/11/18 18:00 12/12/18 17:33 Cortef PO 10 mg QPM MARINO Administration Hydrocortisone Acetate 15 mg 12/13/18 08:00 12/13/18 08:28 Cortef PO 15 mg QAM@0800 [facility] Administration Sodium Chloride 1,000 mls @ 100 mls/hr 12/10/18 23:45 12/12/18 09:20 Nacl 0.9% 1000 Ml IV 100 mls/hr DIRECT MARINO Administration Insulin Glargine 10 units 12/11/18 22:00 12/12/18 22:00 Lantus SUB-Q Not Given QHS [facility] Insulin Glargine 5 units 12/13/18 12:00 Lantus SUB-Q QAM [facility] Insulin Human Lispro 0 unit 12/11/18 07:30 12/13/18 08:29 Humalog SUB-Q Not Given ACHS [facility] Protocol Levetiracetam 500 mg 12/11/18 03:00 12/13/18 09:57 Keppra PO 500 mg BID MARINO Administration Levothyroxine Sodium 150 mcg 12/11/18 16:21 12/13/18 06:24 Synthroid PO 150 mcg DAILY@0600 MARINO Administration Morphine Sulfate 2 mg 12/10/18 23:03 12/12/18 14:18 Morphine IV 2 mg Q4H PRN Administration Pain, Moderate (4-6) Ondansetron HCl 4 mg 12/10/18 23:03 Zofran IV Q8H PRN Nausea And Vomiting Oxycodone/Acetaminophen 1 tab 12/10/18 23:03 Percocet 5/325 PO Q6H PRN Pain, Moderate (4-6) Sertraline HCl 50 mg 12/11/18 10:00 12/13/18 09:57 Zoloft PO 50 mg DAILY MARINO Administration Sodium Chloride 10 ml 12/10/18 23:45 12/13/18 09:57 Sodium Chloride Flush Syringe 10 Ml IV 10 ml BID MARINO Administration Sodium Chloride 10 ml 12/10/18 23:03 Sodium Chloride Flush Syringe 10 Ml IV PRN PRN LINE FLUSH
[2018-12-13] MEDS ORDERED: NACL 0.9% 1000 ML 1,000 ML IV ONE (13:00)
[2018-12-13] MEDS: MORPHINE IV PRN (15:09)
[2018-12-13] MEDS: NACL 0.9% 1000 ML 1,000 ML IV SCH (17:59)
[2018-12-13] MEDS: D5NS 1,000 ML IV SCH ×2 (18:53→19:04)
[2018-12-13] MEDS: LOVENOX SUB-Q SCH (23:14)
[2018-12-14] MEDS: SYNTHROID PO SCH (05:44)
[2018-12-14 06:15] LABS: Hematocrit 28.4 % (30.3-42.9); Hemoglobin 9.4 gm/dl (10.1-14.3); Mean Corpuscular HGB Conc 33 % (30-34); Mean Corpuscular Volume 82 fl (79-97); Platelet Count 179 K/mm3 (140-440); Red Blood Count 3.46 M/mm3 (3.65-5.03); Red Cell Distribution Width 16.2 % (13.2-15.2)
[2018-12-14 06:38] LABS: BUN/Creatinine Ratio 8; Blood Urea Nitrogen 9 mg/dL (7-17); Calcium 6.4 mg/dL (8.4-10.2); Hemolysis Index 4
--- NOTE | 2018-12-14 07:55 | Discharge Summary ---
Providers - Providers Date of Admission: 12/10/18 23:04 Attending physician: IZABELLA LENTZ MD 12/13/18 08:14 Consult to Dietitian/Nutrition [CONS] Routine Physician Instructions: Reason For Exam: Reason for Consult: Malnutrition Primary care physician: ADVERTISING TRAFFIC MANAGER Hospitalization Reason for admission: generalized weakness Condition: Stable Hospital course: 28-year-old female diagnosed with [place]'s disease at the age of 23 comes in for feeling dizzy and weak for the last 2 days. Patient feels very weak especially when standing. Patient's blood pressure has been running low in the 60s over 40s. No fever or chills. Patient has been taking her medications including hydrocortisone twice a day and fludrocortisone regularly. No cough. Patient has history of seizures insulin-dependent diabetes and hypothyroidism. The patient presents to the emergency department with a chief complaint of not feeling well. Patient also complains of being dizzy upon standing for the last 2 days. Patient also states over the last couple days she's had increased frequency and thirst. she at my inital visit did not want to turn around look at me or respond. Patient was treated with hydrocortisone 10 mg twice a day and fludrocortisone 0.1 mg once a day and also recieved one unit PRBC. Recommended to follow with brick off bearer outaptient. BP improved following dose adjustment of Hyrocortison to 10mg And fluid challanege. Renal function also improved No seizure was noted per patient has been diabetic fo 20 years, A1C OF 12 Is acutally an improvement. SHE WILL CONTINUE WITH HER HOME DIABETIC REGIMEN (1) Acute adrenal insufficiency (2) Hypotension (3) Hypokalemia (4) Acute kidney injury secondary to ATN (5) Insulin dependent diabetes mellitus (6) Seizure disorder (7) Hypothyroidism (8) Transaminitis (9) Depression (10) Anemia Disposition: - TO HOME OR SELFCARE Time spent for discharge: 35 mins Core Measure Documentation - Palliative Care Palliative Care/ Comfort Measures: Not Applicable - Core Measures Any of the following diagnoses?: none Exam - Physical Exam Narrative exam: VITAL SIGNS: Reviewed. GENERAL: The patient appeared well nourished and normally developed, pale appearing. Vital signs as documented. HEAD: No signs of head trauma. EYES: Pupils are equal. Extraocular motions intact. EARS: Hearing grossly intact. MOUTH: Oropharynx is normal. NECK: No adenopathy, no JVD. CHEST: Chest with clear breath sounds bilaterally. No wheezes, rales, or rhon chi. CARDIAC: Regular rate and rhythm. S1 and S2, without murmurs, gallops, or rubs. VASCULAR: No Edema. Peripheral pulses normal and equal in all extremities. ABDOMEN: Soft, non tender and non distended. No rebound or guarding, and no masses palpated. Bowel Sounds normal. MUSCULOSKELETAL: Good range of motion of all major joints. Extremities without clubbing, cyanosis or edema. NEUROLOGIC EXAM: Alert and oriented x 3 No focal sensory or strength deficits. Speech normal. Follows commands. PSYCHIATRIC: Mood normal. SKIN: No rash or lesions except noted tattoo - Constitutional Vitals: Temp Pulse Resp BP Pulse Ox 98.1 F 69 20 128/91 97 12/13/18 18:30 12/13/18 18:30 12/13/18 18:30 12/13/18 18:30 12/13/18 18:30 Plan Activity: advance as tolerated, fall precautions Diet: diabetic Special Instructions: record daily weights, record daily BP diary, record blood sugar diary Additional Instructions: please follow with brick off bearer in 2-3 days Follow up with: PRIMARY CARE, [Primary Care Provider] - 3-5 Days Prescriptions: Hydrocortisone [Cortef TAB] 10 mg PO BID #60 tablet Fludrocortisone [Florinef] 0.1 mg PO DAILY #30 tablet Famotidine [Pepcid] 20 mg PO BID #30 tablet Other Discharge Orders: [facility] (Amb) Location: None Selected
[2018-12-14] MEDS: CORTEF PO SCH (08:00)
[2018-12-14] MEDS: LANTUS SUB-Q SCH (08:00)
[2018-12-14] MEDS: FLORINEF PO SCH (09:52)
[2018-12-14] MEDS: SODIUM CHLORIDE FLUSH SYRINGE 10 ML IV SCH (09:54)
[2018-12-14] MEDS: PEPCID PO SCH (09:54)
[2018-12-14] MEDS: ZOLOFT PO SCH (09:54)
[2018-12-14] MEDS: KEPPRA PO SCH (09:57)
[2018-12-14] MEDS: HumaLOG SUB-Q SCH ×2 (09:58→12:56)
[2018-12-14 12:28] VITALS: BP 125/90
== END 2018-12-14 15:15 | disposition home or self-care (01) | DRG 643 ==
LOC: ED 15:32 → 3A 23:04
PROVIDERS: ADMIT Internal Medicine; ATTEND Internal Medicine
PROC: 30233N1 Transfusion of Nonautologous Red Blood Cells into Peripheral Vein, Percutaneous Approach (ICD-10-PCS; principal; 2018-12-13)
DX: E27.40 Unspecified adrenocortical insufficiency (principal); N17.0 Acute kidney failure with tubular necrosis; I95.9 Hypotension, unspecified; E87.6 Hypokalemia; G40.909 Epilepsy, unspecified, not intractable, without status epilepticus; F32.9 Major depressive disorder, single episode, unspecified; N18.2 Chronic kidney disease, stage 2 (mild); E10.65 Type 1 diabetes mellitus with hyperglycemia; E10.42 Type 1 diabetes mellitus with diabetic polyneuropathy; E03.9 Hypothyroidism, unspecified; Z90.49 Acquired absence of other specified parts of digestive tract; Z82.49 Family history of ischemic heart disease and other diseases of the circulatory system; Z88.0 Allergy status to penicillin; Z88.1 Allergy status to other antibiotic agents; Z88.8 Allergy status to other drugs, medicaments and biological substances; Z91.19 Patient's noncompliance with other medical treatment and regimen; Z71.89 Other specified counseling
CPT/HCPCS: 36415; 71045; 80048; 80053; 80074; 82140; 82533; 82607; 82747; 82962; 83036; 83550; 84443; 85007; 85025; 85027; 85730; 86850; 86900; 86901; 86920; 87040; 96374; 99291; G0378; J1650; J1720; J1815; J1956; J2270; J2930; J7030; J7040; J7042; P9016

== ENCOUNTER 2018-12-20 18:50 | Inpatient (IN) | payer MEDICAID ==
[2018-12-20] MEDS ORDERED: NACL 0.9% 1000 ML 1,000 ML IV ONE ×3 (19:14→21:13)
[2018-12-20 19:33] LABS: Hematocrit 32.6 % (30.3-42.9); Hemoglobin 10.3 gm/dl (10.1-14.3); Mean Corpuscular HGB Conc 32 % (30-34); Mean Corpuscular Volume 86 fl (79-97); Platelet Count 218 K/mm3 (140-440); Red Blood Count 3.81 M/mm3 (3.65-5.03)
[2018-12-20 19:51] LABS: Calcium 8.1 mg/dL (8.4-10.2)
--- NOTE | 2018-12-20 19:54 | Emergency Department Report ---
HPI - General Chief Complaint: Hyperglycemia Time Seen by Provider: 12/20/18 19:16 - HPI HPI: Room 23 The patient is a 28-year-old female present with the chief complaint of hyperglycemia. The patient has a history of type 1 diabetes and states she kno ws her blood sugar has been elevated all day. Patient states she's had polydipsia and polyuria so she decided to check her ketones at home and they were read as moderate. The patient states she's been compliant with her diabetes medication and diet. Patient admits to nausea for past 2-3 days but denies vomiting. Patient states she has chronic diarrhea and her physicians are considering ulcerative colitis. Patient denies history of fever, dysuria or hematuria. Patient complains of feeling fatigued Location: [See above] Duration: [See above] Quality: [See above] Severity: [See above] Modifying factors: [see above] Context: [see above] Mode of transportation: [not driving] ED Past Medical Hx - Past Medical History Hx Diabetes: Yes (Type 1) Hx Renal Disease: Yes (Stage 2) Hx Seizures: Yes Additional medical history: hypotension, hypothyroidism, [place]'s disease - Surgical History Hx Cholecystectomy: Yes Hx Appendectomy: Yes Additional Surgical History: 4. port right chest wall - Family History Family history: no significant - Social History Smoking Status: Never Smoker Substance Use Type: None (denies illicit drug use) - Medications Home Medications: Home Medications Medication Instructions Recorded Confirmed Last Taken Type Levothyroxine Sodium [Synthroid] 125 mcg PO DAILY 09/23/18 12/10/18 11/18/18 10:01 History levETIRAcetam [Keppra TAB] 500 mg PO BID #60 tablet 10/26/18 12/10/18 11/16/18 09:00 Rx Sertraline [Zoloft] 50 mg PO DAILY 12/10/18 12/10/18 Unknown History Famotidine [Pepcid] 20 mg PO BID #30 tablet 12/14/18 Unknown Rx Fludrocortisone [Florinef] 0.1 mg PO DAILY #30 tablet 12/14/18 Unknown Rx Hydrocortisone [Cortef TAB] 10 mg PO BID #60 tablet 12/14/18 Unknown Rx ED Review of Systems ROS: Stated complaint: HIGH GLUCOSE/HEADACHE Other details as noted in HPI Constitutional: malaise. denies: fever Eyes: denies: eye pain ENT: denies: throat pain Respiratory: no symptoms reported Cardiovascular: denies: chest pain Endocrine: increased thirst, increased urine Gastrointestinal: nausea. denies: abdominal pain, vomiting Genitourinary: denies: dysuria, hematuria Musculoskeletal: denies: back pain Neurological: denies: headache Physical Exam - Physical Exam Vital Signs: Vital Signs 12/20/18 12/20/18 12/20/18 19:01 19:02 19:16 Temperature 98.5 F Pulse Rate 74 Respiratory 16 Rate Blood Pressure 115/86 [Right] O2 Sat by Pulse 98 96 100 Oximetry Physical Exam: GENERAL: The patient is well-developed well-nourished female lying on stretcher not appearing to be in acute distress. [] HEENT: Normocephalic. Atraumatic. Extraocular motions are intact. Patient has moist mucous membranes. NECK: Supple. Trachea midline CHEST/LUNGS: Clear to auscultation. There is no respiratory distress noted. HEART/CARDIOVASCULAR: Regular. There is no tachycardia. There is no gallop rub or murmur. ABDOMEN: Abdomen is soft, nontender. Patient has normal bowel sounds. There is no abdominal distention. SKIN: There is no rash. There is no edema. There is no diaphoresis. NEURO: The patient is awake, alert, and oriented. The patient is cooperative. The patient has normal speech MUSCULOSKELETAL: There is no evidence of acute injury. ED Course Vital Signs 12/20/18 12/20/18 12/20/18 19:01 19:02 19:16 Temperature 98.5 F Pulse Rate 74 Respiratory 16 Rate Blood Pressure 115/86 [Right] O2 Sat by Pulse 98 96 100 Oximetry ED Medical Decision Making - Lab Data Result diagrams: 12/20/18 19:19 12/20/18 19:20 Laboratory Tests 12/20/18 12/20/18 12/20/18 19:00 19:09 19:19 WBC 7.6 RBC 3.81 Hgb 10.3 Hct 32.6 MCV 86 MCH 27 L MCHC 32 RDW 16.0 H Plt Count 218 VBG pH Sodium Potassium Chloride Carbon Dioxide Anion Gap BUN Creatinine Estimated GFR BUN/Creatinine Ratio Glucose POC Glucose > 500 H Calcium Urine Color Straw Urine Turbidity Clear Urine pH 6.0 Ur Specific [place] 1.017 Urine Protein <15 mg/dl Urine Glucose (UA) >=500 Urine Ketones 20 Urine Blood Neg Urine Nitrite Neg Urine Bilirubin Neg Urine Urobilinogen < 2.0 Ur Leukocyte Esterase Neg Urine WBC (Auto) 4.0 Urine RBC (Auto) 3.0 U Epithel Cells (Auto) < 1.0 12/20/18 12/20/18 19:20 19:20 WBC RBC Hgb Hct MCV MCH MCHC RDW Plt Count VBG pH 7.356 Sodium 118 L* Potassium 4.5 Chloride 74.4 L Carbon Dioxide 26 Anion Gap 21 BUN 29 H Creatinine 1.6 H Estimated GFR 46 BUN/Creatinine Ratio 18 Glucose 1149 H* POC Glucose Calcium 8.1 L Urine Color Urine Turbidity Urine pH Ur Specific [place] Urine Protein Urine Glucose (UA) Urine Ketones Urine Blood Urine Nitrite Urine Bilirubin Urine Urobilinogen Ur Leukocyte Esterase Urine WBC (Auto) Urine RBC (Auto) U Epithel Cells (Auto) - Differential Diagnosis DKA, hyperglycemia Critical care attestation.: If time is entered above; I have spent that time in minutes in the direct care of this critically ill patient, excluding procedure time. ED Disposition Clinical Impression: Hyperglycemia, Ketonuria Disposition: OP ADMIT IP TO THIS HOSP Is pt being admited?: Yes Does the pt Need Aspirin: No Condition: Fair Time of Disposition: 20:26 (Hospitalist paged)
[2018-12-20 20:01] LABS: Bilirubin,Urine NEG (Negative); Blood,Urine NEG (Negative); Color,Urine Straw (Yellow); Protein,Urine <15 mg/dL mg/dL (Negative); Urobilinogen,Urine < 2.0 mg/dL (<2.0)
[2018-12-20] MEDS ORDERED: HumuLIN R IV ONE (20:18)
[2018-12-20] MEDS ORDERED: D50W (25GM) Syringe IV PRN (20:19)
[2018-12-20] MEDS ORDERED: SODIUM CHLORIDE FLUSH SYRINGE 10 ML IV PRN (21:08)
[2018-12-20] MEDS ORDERED: ZOFRAN IV PRN (21:08)
[2018-12-20] MEDS ORDERED: TYLENOL PO PRN (21:08)
[2018-12-20] MEDS ORDERED: MORPHINE IV PRN (21:08)
[2018-12-20 21:13] LABS: Calcium 7.7 mg/dL (8.4-10.2)
[2018-12-20] MEDS ORDERED: MAGNESIUM SULFATE 2GM/50ML 2 GM/50 ML BAG IV ONE (21:13)
[2018-12-20] MEDS ORDERED: NACL 0.9% 1000 ML 1,000 ML IV SCH (22:00)
[2018-12-20] MEDS: HumuLIN R 100 UNITS in NACL 0.9% 99 ML IV SCH (22:00)
--- NOTE | 2018-12-20 22:49 | History and Physical Report ---
History of Present Illness Date of examination: 12/20/18 Chief complaint: High blood sugar History of present illness: Patient is a 28 year old female with history of diabetes mellitus type 1 who presented to the ED on account of high blood sugar. Patient stated that her glucometer was reading high despite taking her medications. She admits to nausea without vomiting, headaches and lightheadedness. She denies abdomen pain, cough, chest pain, shortness of breath, palpitation, fever, chills, syncope or loss of consciousness. No diarrhea, constipation or urinary frequency. Of note, patient has history of recurrent hospitalization and she was recently discharged few weeks ago. Past History Past Medical History: anemia, diabetes, hypertension, hypothyroidism, renal failure, seizures, other (Dante's disease, depression) Past Surgical History: appendectomy, cholecystectomy, (4), Other (Kenyatta-cath placement in 05/18) Social history: no significant social history (she denies tobacco, alcohol or illicit drug use) Family history: other (mother has hypertension and lupus. No known family history of diabetes) Medications and Allergies Allergies Allergy/AdvReac Type Severity Reaction Status Date / Time Penicillins Allergy Angioedema Verified 09/20/18 15:10 vortioxetine Allergy Unknown Verified 09/20/18 15:10 [From Trintellix] ziprasidone [From Geodon] Allergy Angioedema Verified 09/20/18 15:10 vancomycin AdvReac Itching Verified 09/20/18 15:10 Home Medications Medication Instructions Recorded Confirmed Last Taken Type Levothyroxine Sodium [Synthroid] 125 mcg PO DAILY 09/23/18 12/10/18 11/18/18 10:01 History levETIRAcetam [Keppra TAB] 500 mg PO BID #60 tablet 10/26/18 12/10/18 11/16/18 09:00 Rx Sertraline [Zoloft] 50 mg PO DAILY 12/10/18 12/10/18 Unknown History Famotidine [Pepcid] 20 mg PO BID #30 tablet 12/14/18 Unknown Rx Fludrocortisone [Florinef] 0.1 mg PO DAILY #30 tablet 12/14/18 Unknown Rx Hydrocortisone [Cortef TAB] 10 mg PO BID #60 tablet 12/14/18 Unknown Rx Active Meds: Active Medications Acetaminophen (Tylenol) 650 mg PO Q4H PRN PRN Reason: Pain MILD(1-3)/Fever >100.5/STEWARD Dextrose (D50w (25gm) Syringe) 0 ml IV ONCE PRN PRN Reason: Hypoglycemia Famotidine (Pepcid) 10 mg IV BID [facility] Heparin Sodium (Porcine) (Heparin) 5,000 unit SUB-Q Q8HR [facility] Insulin Human Regular 100 (units/ Sodium Chloride) 100 mls @ 6 mls/hr IV TITR MARINO; Protocol Last Admin: 12/20/18 22:00 Dose: 8 units/hr, 8 mls/hr Documented by: Sodium Chloride (Nacl 0.9% 1000 Ml) 1,000 mls @ 250 mls/hr IV DIRECT MARINO Magnesium Sulfate (Magnesium Sulfate 2gm/50ml) 2 gm in 50 mls @ 25 mls/hr IV O NCE ONE Stop: 12/20/18 23:12 Last Admin: 12/20/18 22:00 Dose: 25 mls/hr Documented by: Morphine Sulfate (Morphine) 2 mg IV Q4H PRN PRN Reason: Pain , Severe (7-10) Ondansetron HCl (Zofran) 4 mg IV Q8H PRN PRN Reason: Nausea And Vomiting Oxycodone/Acetaminophen (Percocet 5/325) 1 tab PO Q6H PRN PRN Reason: Pain, Moderate (4-6) Sodium Chloride (Sodium Chloride Flush Syringe 10 Ml) 10 ml IV BID [facility] Sodium Chloride (Sodium Chloride Flush Syringe 10 Ml) 10 ml IV PRN PRN PRN Reason: LINE FLUSH Review of Systems All systems: negative (except as documented in the HPI, 14 point system reviewed were negative) Exam - Constitutional Vitals: Temp Pulse Resp BP Pulse Ox 98.5 F 74 16 115/86 100 12/20/18 19:02 12/20/18 19:02 12/20/18 19:02 12/20/18 19:02 12/20/18 19:16 General appearance: Present: no acute distress, well-nourished - EENT Eyes: Present: PERRL, EOM intact ENT: hearing intact, clear oral mucosa - Neck Neck: Present: supple, normal ROM - Respiratory Respiratory effort: normal Respiratory: bilateral: CTA - Cardiovascular Rhythm: regular Heart Sounds: Present: S1 & S2. Absent: rub, click - Extremities Extremities: pulses symmetrical, No edema Peripheral Pulses: within normal limits - Abdominal General gastrointestinal: Present: soft, non-tender, non-distended, normal bowel sounds Female genitourinary: Present: deferred - Integumentary Integumentary: Present: clear, warm, dry - Musculoskeletal Musculoskeletal: gait normal, strength equal bilaterally - Psychiatric Psychiatric: appropriate mood/affect, intact judgment & insight - Neurologic Neurologic: CNII-XII intact, moves all extremities Results - Labs CBC & Chem 7: 12/20/18 19:19 12/20/18 20:42 Labs: Laboratory Last Values WBC 7.6 K/mm3 (4.5-11.0) 12/20/18 19: RBC 3.81 M/mm3 (3.65-5.03) 12/20/18 19:19 Hgb 10.3 gm/dl (10.1-14.3) 12/20/18 19:19 Hct 32.6 % (30.3-42.9) 12/20/18 19:19 MCV 86 fl (79-97) 12/20/18 19:19 MCH 27 pg (28-32) L 12/20/18 19:19 MCHC 32 % (30-34) 12/20/18 19:19 RDW 16.0 % (13.2-15.2) H 12/20/18 19:19 Plt Count 218 K/mm3 (140-440) 12/20/18 19:19 VBG pH 7.356 (7.320-7.420) 12/20/18 19:20 Sodium 121 mmol/L (137-145) L 12/20/18 20:42 Potassium 4.1 mmol/L (3.6-5.0) 12/20/18 20:42 Chloride 83.7 mmol/L (98-107) L 12/20/18 20:42 Carbon Dioxide 22 mmol/L (22-30) 12/20/18 20:42 19 mmol/L 12/20/18 20:42 BUN 27 mg/dL (7-17) H 12/20/18 20:42 1.4 mg/dL (0.7-1.2) H 12/20/18 20:42 Estimated GFR 54 ml/min 12/20/18 20:42 19 % 12/20/18 20:42 Glucose 1014 mg/dL (65-100) H* 12/20/18 20:42 POC Glucose > 500 (70-105) H 12/20/18 19:09 Calcium 7.7 mg/dL (8.4-10.2) L 12/20/18 20:42 Phosphorus 3.60 mg/dL (2.5-4.5) 12/20/18 20:42 Magnesium 1.60 mg/dL (1.7-2.3) L 12/20/18 20:42 Straw (Yellow) 12/20/18 19:00 Clear (Clear) 12/20/18 19:00 6.0 (5.0-7.0) 12/20/18 19:00 Ur Specific [place] 1.017 (1.003-1.030) 12/20/18 19:00 <15 mg/dl mg/dL (Negative) 12/20/18 19:00 >=500 mg/dL (Negative) 12/20/18 19:00 20 mg/dL (Negative) 12/20/18 19:00 Neg (Negative) 12/20/18 19:00 Neg (Negative) 12/20/18 19:00 Neg (Negative) 12/20/18 19:00 < 2.0 mg/dL (<2.0) 12/20/18 19:00 Ur Leukocyte Esterase Neg (Negative) 12/20/18 19:00 4.0 /HPF (0.0-6.0) 12/20/18 19:00 3.0 /HPF (0.0-6.0) 12/20/18 19:00 U Epithel Cells (Auto) < 1.0 /HPF (0-13.0) 12/20/18 19:00 Assessment and Plan Assessment and plan: HHS in DM type 1 -Patient will be admitted to the ICU on insulin drip BRANDEE -Likely vasomotor nephropathy due to dehydration -On IV fluid, will monitor creatinine level Hyponatremia -Her corrected sodium level is 135 -On IV fluid, will monitor sodium level Hypomagnesemia -We'll replete and monitor mg level Hypothyroidism -We will resume her Synthroid Hypertension -Stable 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
[2018-12-20] MEDS: HEPARIN SUB-Q SCH (23:34)
[2018-12-20] MEDS: PEPCID IV SCH (23:34)
[2018-12-20] MEDS: SODIUM CHLORIDE FLUSH SYRINGE 10 ML IV SCH (23:34)
[2018-12-20] MEDS ORDERED: NS/KCL 20MEQ 20 MEQ/1,000 ML BAG IV SCH (23:45)
[2018-12-20] MEDS ORDERED: KCL 10MEQ/100ML 10 MEQ/100 ML BAG IV SCH (23:45)
[2018-12-21 04:55] LABS: BUN/Creatinine Ratio 21; Blood Urea Nitrogen 23 mg/dL (7-17); Calcium 7.8 mg/dL (8.4-10.2); Hemolysis Index 36
[2018-12-21] MEDS: HumuLIN R 100 UNITS in NACL 0.9% 99 ML IV SCH (05:51)
--- NOTE | 2018-12-21 08:00 | Progress Note ---
Assessment and Plan Patient is a 28 year old female with history of diabetes mellitus type 1 who presented to the ED on account of high blood sugar. Patient stated that her glucometer was reading high despite taking her medications. She just had ketones in the urine that were positive. She did before presented to the emergency department. On admission to the emergency department blood sugar was 1149. She admits to nausea without vomiting, headaches and lightheadedness. She denies abdomen pain, cough, chest pain, shortness of breath, palpitation, fever, chills, syncope or loss of consciousness. No diarrhea, constipation or urinary frequency. Of note, patient has history of recurrent hospitalization and she was recently discharged few weeks ago. - DKA DKA protocol initiated Continue with insulin drip per protocol IV hydration BRANDEE -Likely vasomotor nephropathy due to dehydration -On IV fluid, will monitor creatinine level Hyponatremia -On IV fluid, will monitor sodium level Hypomagnesemia -We'll replete and monitor mg level Hypothyroidism -Continue Synthroid Hypertension -Stable History of [place]'s disease -We will resume her home steroids Seizure disorder -We'll resume home Keppra -Seizure precautions Chronic anemia -H/H stable DVT prophylaxis with heparin and GI prophylaxis with famotidine Subjective Date of service: 12/21/18 Principal diagnosis: T1DM, DKA, hypokalemia, Interval history: Patient is seen and examined. No new complaints. Denies any nausea vomiting, chest pain or shortness of breath Objective - Exam Narrative Exam: Constitutional: Well-nourished well-developed. In no distress Head: Normocephalic atraumatic Eyes: Pupils are equal round and reactive to light Nose: No enlarged turbinates, no septal deviation. Mouth: Moist mucous membranes. Neck: Supple no thyromegaly. No bruit. No JVD Heart: Regular rate and rhythm, S1-S2 normal. No rubs murmurs or gallop Lungs: Clear to auscultation bilaterally. no rales or rhonchi Abdomen: Soft, nontender. Bowel sound are present. Extremities: No edema, no cyanosis, no clubbing. Neuro: Alert oriented Oriented x3. No focal sensory or motor deficit. Skin: No rashes or hyperpigmented spots Musculoskeletal system: No joint pain or swelling Hematological: No petechia or subcutanous hemorrhages. Immunological: No multiple septic spots on the skin Lymphatic: No generalized lymphadenopathy Psychiatry: Euthymic. Calm. - Constitutional Vitals: Vital Signs - 12hr 12/20/18 12/20/18 12/20/18 22:12 22:15 22:30 Pulse Rate Respiratory Rate Blood Pressure 118/92 129/91 129/91 Blood Pressure [Right] O2 Sat by Pulse 98 100 Oximetry 12/20/18 12/20/18 12/20/18 22:45 23:00 23:12 Pulse Rate Respiratory Rate Blood Pressure 118/88 110/80 118/88 Blood Pressure [Right] O2 Sat by Pulse 100 98 100 Oximetry 12/20/18 12/20/18 12/20/18 23:15 23:30 23:32 Pulse Rate Respiratory Rate Blood Pressure 118/83 115/83 115/83 Blood Pressure [Right] O2 Sat by Pulse 99 99 100 Oximetry 12/21/18 12/21/18 12/21/18 00:23 06:24 06:30 Pulse Rate 84 Respiratory 20 Rate Blood Pressure 109/76 Blood Pressure 118/92 [Right] O2 Sat by Pulse 98 100 100 Oximetry 12/21/18 12/21/18 12/21/18 06:45 07:00 07:15 Pulse Rate Respiratory Rate Blood Pressure 113/82 101/71 99/66 Blood Pressure [Right] O2 Sat by Pulse 100 100 100 Oximetry 12/21/18 07:30 Pulse Rate Respiratory Rate Blood Pressure 108/75 Blood Pressure [Right] O2 Sat by Pulse 100 Oximetry - Labs CBC & Chem 7: 12/20/18 19:19 12/21/18 04:00 Labs: Abnormal lab results 12/20/18 12/20/18 12/20/18 Range/Units 19:09 19:19 19:20 MCH 27 L (28-32) pg RDW 16.0 H (13.2-15.2) % Sodium 118 L* (137-145) mmol/L Potassium (3.6-5.0) mmol/L Chloride 74.4 L (98-107) mmol/L BUN 29 H (7-17) mg/dL Creatinine 1.6 H (0.7-1.2) mg/dL Glucose 1149 H* (65-100) mg/dL POC Glucose > 500 H (70-105) Calcium 8.1 L (8.4-10.2) mg/dL Magnesium (1.7-2.3) mg/dL 12/20/18 12/20/18 12/20/18 Range/Units 20:42 20:42 22:48 MCH (28-32) pg RDW (13.2-15.2) % Sodium 121 L 127 L (137-145) mmol/L Potassium 2.8 L* D (3.6-5.0) mmol/L Chloride 83.7 L 88.4 L (98-107) mmol/L BUN 27 H 26 H (7-17) mg/dL Creatinine 1.4 H 1.5 H (0.7-1.2) mg/dL Glucose 1014 H* 758 H* (65-100) mg/dL POC Glucose (70-105) Calcium 7.7 L 8.0 L (8.4-10.2) mg/dL Magnesium 1.60 L (1.7-2.3) mg/dL 12/20/18 12/21/18 12/21/18 Range/Units 23:07 04:00 06:52 MCH (28-32) pg RDW (13.2-15.2) % Sodium 126 L (137-145) mmol/L Potassium (3.6-5.0) mmol/L Chloride 88.8 L (98-107) mmol/L BUN 23 H (7-17) mg/dL Creatinine (0.7-1.2) mg/dL Glucose 429 H (65-100) mg/dL POC Glucose > 500 H 354 H (70-105) Calcium 7.8 L (8.4-10.2) mg/dL Magnesium (1.7-2.3) mg/dL
[2018-12-21 09:18] LABS: BUN/Creatinine Ratio 17; Blood Urea Nitrogen 20 mg/dL (7-17); Hemolysis Index 6
[2018-12-21] MEDS ORDERED: SYNTHROID PO SCH (10:00)
[2018-12-21] MEDS ORDERED: HumuLIN R 100 UNITS in NACL 0.9% 99 ML IV SCH (10:00)
[2018-12-21] MEDS: KCL 10MEQ/100ML 10 MEQ/100 ML BAG IV SCH ×3 (12:07→16:38)
[2018-12-21] MEDS: ZOLOFT PO SCH (12:17)
[2018-12-21] MEDS: PEPCID IV SCH ×2 (12:18→21:52)
[2018-12-21] MEDS ORDERED: ZOLOFT ONE (12:18)
[2018-12-21] MEDS: KEPPRA PO SCH ×2 (12:18→21:51)
[2018-12-21] MEDS ORDERED: KEPPRA PO ONE (12:18)
[2018-12-21] MEDS ORDERED: PEPCID IV ONE (12:19)
[2018-12-21] MEDS ORDERED: NACL 0.9% 1000 ML 1,000 ML IV ONE (13:30)
[2018-12-21] MEDS: HumuLIN R SUB-Q SCH ×3 (14:14→22:42)
[2018-12-21] MEDS: SYNTHROID PO SCH (14:15)
[2018-12-21] MEDS: FLORINEF PO SCH (14:16)
[2018-12-21] MEDS: CORTEF PO SCH ×2 (14:16→21:51)
[2018-12-21] MEDS: SODIUM CHLORIDE FLUSH SYRINGE 10 ML IV SCH ×2 (14:17→21:52)
[2018-12-21] MEDS: HEPARIN SUB-Q SCH ×2 (14:20→21:51)
[2018-12-21 14:55] LABS: BUN/Creatinine Ratio 18; Blood Urea Nitrogen 20 mg/dL (7-17); Calcium 8.1 mg/dL (8.4-10.2); Hemolysis Index 4
[2018-12-21] MEDS: NACL 0.9% 1000 ML 1,000 ML IV SCH ×2 (17:49→21:54)
[2018-12-21] MEDS: PERCOCET 5/325 PO PRN (20:34)
[2018-12-22] MEDS: HEPARIN SUB-Q SCH ×3 (05:36→22:39)
[2018-12-22] MEDS: SYNTHROID PO SCH (05:56)
[2018-12-22 06:48] LABS: BUN/Creatinine Ratio 15; Blood Urea Nitrogen 18 mg/dL (7-17); Calcium 7.3 mg/dL (8.4-10.2); Hemolysis Index 3
[2018-12-22] MEDS: HumuLIN R SUB-Q SCH ×4 (09:00→22:38)
[2018-12-22] MEDS: KEPPRA PO SCH ×2 (09:48→22:36)
[2018-12-22] MEDS: PEPCID IV SCH ×2 (09:48→22:36)
[2018-12-22] MEDS: CORTEF PO SCH ×2 (09:48→22:36)
[2018-12-22] MEDS: FLORINEF PO SCH (09:48)
[2018-12-22] MEDS: ZOLOFT PO SCH (09:48)
[2018-12-22] MEDS: NACL 0.9% 1000 ML 1,000 ML IV SCH ×2 (09:49→21:10)
[2018-12-22] MEDS: SODIUM CHLORIDE FLUSH SYRINGE 10 ML IV SCH ×2 (09:49→22:00)
--- NOTE | 2018-12-22 13:27 | Progress Note ---
Assessment and Plan Patient is a 28 year old female with history of diabetes mellitus type 1 who presented to the ED on account of high blood sugar. Patient stated that her glucometer was reading high despite taking her medications. She just had ketones in the urine that were positive. She did before presented to the emergency department. On admission to the emergency department blood sugar was 1149. She admits to nausea without vomiting, headaches and lightheadedness. She denies abdomen pain, cough, chest pain, shortness of breath, palpitation, fever, chills, syncope or loss of consciousness. No diarrhea, constipation or urinary frequency. Of note, patient has history of recurrent hospitalization and she was recently discharged few weeks ago. - DKA DKA protocol initiated d/wilmer as blood sugar has improved SSI high dose IV hydration -T1DM Aic 10.4% BRANDEE -Likely vasomotor nephropathy due to dehydration -On IV fluid, will monitor creatinine level Hyponatremia - corrected -On IV fluid, will monitor sodium level Hypomagnesemia -We'll replete and monitor mg level Hypothyroidism -Continue Synthroid Hypertension -Stable History of [place]'s disease -We will resume her home steroids Seizure disorder -We'll resume home Keppra -Seizure precautions Chronic anemia -H/H stable DVT prophylaxis with heparin and GI prophylaxis with famotidine Subjective Date of service: 12/22/18 Principal diagnosis: T1DM, DKA, hypokalemia, Interval history: Patient is seen and examined. No new complaints. Denies any nausea vomiting, chest pain or shortness of breath Objective - Exam Narrative Exam: Constitutional: Well-nourished well-developed. In no distress Head: Normocephalic atraumatic Eyes: Pupils are equal round and reactive to light Nose: No enlarged turbinates, no septal deviation. Mouth: Moist mucous membranes. Neck: Supple no thyromegaly. No bruit. No JVD Heart: Regular rate and rhythm, S1-S2 normal. No rubs murmurs or gallop Lungs: Clear to auscultation bilaterally. no rales or rhonchi Abdomen: Soft, nontender. Bowel sound are present. Extremities: No edema, no cyanosis, no clubbing. Neuro: Alert oriented Oriented x3. No focal sensory or motor deficit. Skin: No rashes or hyperpigmented spots Musculoskeletal system: No joint pain or swelling Hematological: No petechia or subcutanous hemorrhages. Immunological: No multiple septic spots on the skin Lymphatic: No generalized lymphadenopathy Psychiatry: Euthymic. Calm. - Constitutional Vitals: Vital Signs - 12hr 12/22/18 12/22/18 05:02 11:40 Temperature 97.8 F 98.3 F Pulse Rate 63 77 Respiratory 20 18 Rate Blood Pressure 103/72 90/62 O2 Sat by Pulse 96 98 Oximetry - Labs CBC & Chem 7: 12/20/18 19:19 12/22/18 06:15 Labs: Abnormal lab results 12/21/18 12/21/18 12/21/18 Range/Units 08:08 13:32 13:51 Sodium 133 L (137-145) mmol/L Chloride 97.7 L (98-107) mmol/L BUN 20 H (7-17) mg/dL Glucose 206 H (65-100) mg/dL POC Glucose 220 H 178 H (70-105) Calcium 8.1 L (8.4-10.2) mg/dL Phosphorus (2.5-4.5) mg/dL 12/21/18 12/21/18 12/21/18 Range/Units 13:51 17:06 22:22 Sodium (137-145) mmol/L Chloride (98-107) mmol/L BUN (7-17) mg/dL Glucose (65-100) mg/dL POC Glucose 235 H 176 H (70-105) Calcium (8.4-10.2) mg/dL Phosphorus 2.40 L D (2.5-4.5) mg/dL 12/22/18 12/22/18 12/22/18 Range/Units 06:15 08:19 11:45 Sodium (137-145) mmol/L Chloride (98-107) mmol/L BUN 18 H (7-17) mg/dL Glucose 151 H (65-100) mg/dL POC Glucose 285 H 402 H (70-105) Calcium 7.3 L (8.4-10.2) mg/dL Phosphorus (2.5-4.5) mg/dL
[2018-12-23] MEDS: D50W (25GM) Syringe IV PRN ×2 (00:26→05:02)
[2018-12-23] MEDS: HEPARIN SUB-Q SCH ×2 (05:27→14:18)
[2018-12-23] MEDS: SYNTHROID PO SCH (05:32)
[2018-12-23] MEDS: ZOLOFT PO SCH (09:20)
[2018-12-23] MEDS: PEPCID IV SCH (09:20)
[2018-12-23] MEDS: KEPPRA PO SCH (09:20)
[2018-12-23] MEDS: HumuLIN R SUB-Q SCH ×2 (09:21→13:00)
[2018-12-23] MEDS: CORTEF PO SCH (09:21)
[2018-12-23] MEDS: FLORINEF PO SCH (09:21)
[2018-12-23] MEDS: SODIUM CHLORIDE FLUSH SYRINGE 10 ML IV SCH (09:22)
[2018-12-23] MEDS: NACL 0.9% 1000 ML 1,000 ML IV SCH (09:30)
--- NOTE | 2018-12-23 10:46 | Discharge Summary ---
Providers - Providers Date of Admission: 12/21/18 00:51 Date of discharge: 12/23/18 Attending physician: OTF BARNES 12/21/18 09:07 Consult to Dietitian/Nutrition [CONS] Routine Physician Instructions: Reason For Exam: DKA Reason for Consult: Nutrition Recommendations Reason for Consult: Diet education Primary care physician: MARIANELA HURTADO Hospitalization Condition: Fair Hospital course: Patient is a 28 year old female with history of diabetes mellitus type 1 who presented to the ED on account of high blood sugar. Patient stated that her glucometer was reading high despite taking her medications. On admission to the emergency department blood sugar was 1149. She admits to nausea without vomiting, headaches and lightheadedness. Of note, patient has history of recurrent hospitalization and she was recently discharged about a week ago. She was placed on DKA protocol, iv fluid, BG improved, changed insulin to subqu, monitored BMP. patient was then discharged home in stable condition. Discharge diagnosis; - DKA s/p DKA protocol initiated, then d/wilmer as blood sugar has improved patient was placed on NPH 5 units BID before discharge -T1DM Aic 10.4%, recommended compliance with diet and meds BRANDEE -Likely vasomotor nephropathy due to dehydration -improved with IV fluid, Hyponatremia - corrected with IV fluid, Hypokalemia, repleted Hypomagnesemia -Repleted and monitored mg level Hypothyroidism -Continue Synthroid Hypertension -Stable History of [place]'s disease -cont her home steroids Seizure disorder -Seizure precautions, on keppra Chronic anemia -H/H stable DVT prophylaxis with heparin and GI prophylaxis with famotidine Disposition: - TO HOME OR SELFCARE Time spent for discharge: 34 minutes Core Measure Documentation - Palliative Care Palliative Care/ Comfort Measures: Not Applicable - Core Measures Any of the following diagnoses?: none Exam - Constitutional Vitals: Temp Pulse Resp BP Pulse Ox 97.8 F 64 16 106/78 96 12/23/18 05:02 12/23/18 05:02 12/23/18 05:02 12/23/18 05:02 12/23/18 05:02 General appearance: Present: no acute distress, well-nourished - EENT Eyes: Present: PERRL ENT: hearing intact, clear oral mucosa - Neck Neck: Present: supple, normal ROM - Respiratory Respiratory effort: normal Respiratory: bilateral: CTA - Cardiovascular Heart Sounds: Present: S1 & S2. Absent: rub, click - Extremities Extremities: pulses symmetrical, No edema Peripheral Pulses: within normal limits - Abdominal General gastrointestinal: Present: soft, non-tender, non-distended, normal bowel sounds - Integumentary Integumentary: Present: clear, warm, dry - Musculoskeletal Musculoskeletal: gait normal, strength equal bilaterally - Psychiatric Psychiatric: appropriate mood/affect, intact judgment & insight - Neurologic Neurologic: CNII-XII intact, moves all extremities Plan Activity: advance as tolerated Weight Bearing Status: Weight Bear as Tolerated Diet: diabetic Special Instructions: record blood sugar diary Follow up with: MARIANELA HURTADO MD [Primary Care Provider] - 3-5 Days Prescriptions: Insulin NPH/Regular [Novolin 70/30] 5 unit SQ BIDDIAB #10 ml Ondansetron (Nf) [Zofran TAB] 8 mg PO Q8HR PRN #14 tablet PRN Reason: Nausea
[2018-12-23] MEDS: PERCOCET 5/325 PO PRN (12:16)
[2018-12-23] MEDS ORDERED: FLUSH HEPARIN IV ONE ×2 (13:00→14:00)
[2018-12-23] MEDS ORDERED: TRIPLE ANTIBIOTIC TP SCH (13:00)
[2018-12-23] MEDS ORDERED: TRIPLE ANTIBIOTIC TP ONE (14:00)
[2018-12-23 19:16] VITALS: BP 132/92
== END 2018-12-23 18:40 | disposition home or self-care (01) | DRG 637 ==
LOC: ED 18:50 → CC1 12-21 00:51 → 3A 12-21 11:46
PROVIDERS: ADMIT Internal Medicine; ATTEND Internal Medicine
DX: E10.10 Type 1 diabetes mellitus with ketoacidosis without coma (principal); N17.0 Acute kidney failure with tubular necrosis; E87.1 Hypo-osmolality and hyponatremia; I10 Essential (primary) hypertension; E83.42 Hypomagnesemia; E03.9 Hypothyroidism, unspecified; E27.1 Primary adrenocortical insufficiency; G40.909 Epilepsy, unspecified, not intractable, without status epilepticus; D64.9 Anemia, unspecified; E87.6 Hypokalemia; Z90.49 Acquired absence of other specified parts of digestive tract; Z98.891 History of uterine scar from previous surgery; Z82.49 Family history of ischemic heart disease and other diseases of the circulatory system; Z82.0 Family history of epilepsy and other diseases of the nervous system; Z88.0 Allergy status to penicillin; Z88.8 Allergy status to other drugs, medicaments and biological substances
CPT/HCPCS: 36415; 80048; 81001; 82805; 82962; 83735; 84100; 85027; 87116; G0378; A6250; J1642; J1644; J1815; J2270; J3475; J3480; J7030

== ENCOUNTER 2018-12-25 16:16 | Emergency (ER) | payer MEDICAID ==
--- NOTE | 2018-12-25 16:51 | Emergency Department Report ---
Blank Doc - Documentation Documentation: 28 y o female presents with flank pain x couple of days ua,upt
[2018-12-25 18:34] LABS: Bacteria,Urine 1+ /HPF (Negative); Bilirubin,Urine NEG (Negative); Blood,Urine NEG (Negative); Color,Urine Straw (Yellow); Protein,Urine <15 mg/dL mg/dL (Negative); Urobilinogen,Urine < 2.0 mg/dL (<2.0)
[2018-12-25 18:35] LABS: HCG Qualitative,Urine Negative (Negative)
[2018-12-25 18:48] LABS: Hematocrit 30.7 % (30.3-42.9); Hemoglobin 10.2 gm/dl (10.1-14.3); Mean Corpuscular HGB Conc 33 % (30-34); Mean Corpuscular Volume 83 fl (79-97); Platelet Count 224 K/mm3 (140-440); Red Blood Count 3.71 M/mm3 (3.65-5.03); Red Cell Distribution Width 16.9 % (13.2-15.2)
[2018-12-25 19:14] LABS: Albumin 3.6 g/dL (3.9-5)
[2018-12-25 20:20] LABS: Calcium 8.4 mg/dL (8.4-10.2)
[2018-12-25] MEDS ORDERED: NACL 0.9% 1000 ML 2,000 ML IV ONE (20:31)
[2018-12-25] MEDS ORDERED: NACL 0.9% 1000 ML 1,000 ML IV ONE (20:31)
[2018-12-25] MEDS ORDERED: TYLENOL PO STA (20:32)
[2018-12-25] MEDS ORDERED: HumuLIN R IV ONE ×3 (20:32→23:15)
[2018-12-25] MEDS ORDERED: SUBLIMAZE IV ONE (20:32)
[2018-12-25] MEDS ORDERED: LEVAQUIN 750MG/150ML 750 MG/150 ML BAG IV ONE (20:33)
--- NOTE | 2018-12-25 20:35 | Emergency Department Report ---
ED General Adult HPI - General Chief complaint: Back Pain/Injury Stated complaint: KIDNEY PAIN/HYPERGLYCEMIA Time Seen by Provider: 12/25/18 16:47 Source: patient, RN notes reviewed, old records reviewed Mode of arrival: Ambulatory Limitations: No Limitations - History of Present Illness Initial comments: This is a 28-year-old female. The patient is not known to this provider previously. Her primary care doctor is at [facility]. Past medical history includes type 1 diabetes, diabetic ketoacidosis, hemoglobin A1c of 10.4, renal insufficiency, pseudohyponatremia, hypokalemia, hypomagnesemia, hypothyroidism, hypertension, Caldwell's disease, seizure disorder, chronic anemia, chronic transaminitis. Patient recently admitted to this hospital for diabetic ketoacidosis. Patient presents to the emergency room today with complaint of bilateral flank pain, stating "it feels like my kidneys are coming out of my back" Physical pinnae by urinary frequency, nausea, malaise and fatigue. There is no severe headache, neck pain, chest pain, lower abdominal pain. There are no fevers. Her back pain increases with palpation, percussion. It decreases with rest and with pain medication. Patient states that she thinks that she has a k idney infection. -: Gradual, days(s) Location: back Radiation: non-radiation Quality: aching Consistency: intermittent Improves with: rest Worsens with: movement - Related Data Home Medications Medication Instructions Recorded Confirmed Last Taken Levothyroxine Sodium [Synthroid] 125 mcg PO DAILY 09/23/18 12/25/18 11/18/18 10:01 Sertraline [Zoloft] 50 mg PO DAILY 12/10/18 12/25/18 Unknown Previous Rx's Medication Instructions Recorded Last Taken Type levETIRAcetam [Keppra TAB] 500 mg PO BID #60 tablet 10/26/18 11/16/18 09:00 Rx Famotidine [Pepcid] 20 mg PO BID #30 tablet 12/14/18 Unknown Rx Fludrocortisone [Florinef] 0.1 mg PO DAILY #30 tablet 12/14/18 Unknown Rx Hydrocortisone [Cortef TAB] 10 mg PO BID #60 tablet 12/14/18 Unknown Rx Insulin NPH/Regular [Novolin 70/30] 5 unit SQ BIDDIAB #10 ml 12/23/18 Unknown Rx Ondansetron (Nf) [Zofran TAB] 8 mg PO Q8HR PRN #14 tablet 12/23/18 Unknown Rx Acetaminophen [Non-Aspirin Extra 500 mg PO Q6HR PRN #30 tablet 12/26/18 Unknown Rx Strength] Selena Root [Selena] 250 mg PO QID PRN #30 capsule 12/26/18 Unknown Rx Metoclopramide [Reglan] 10 mg PO QID PRN #30 tablet 12/26/18 Unknown Rx levoFLOXacin [Levaquin] 750 mg PO QDAY #9 tablet 12/26/18 Unknown Rx Allergies Allergy/AdvReac Type Severity Reaction Status Date / Time Penicillins Allergy Angioedema Verified 09/20/18 15:10 vortioxetine Allergy Unknown Verified 09/20/18 15:10 [From Trintellix] ziprasidone [From Geodon] Allergy Angioedema Verified 09/20/18 15:10 vancomycin AdvReac Itching Verified 09/20/18 15:10 ED Review of Systems ROS: Stated complaint: KIDNEY PAIN/HYPERGLYCEMIA Other details as noted in HPI Constitutional: malaise. denies: fever Eyes: other (polyuria, polydipsia). denies: eye discharge ENT: denies: epistaxis Respiratory: denies: cough Cardiovascular: denies: chest pain Gastrointestinal: nausea Genitourinary: frequency Musculoskeletal: back pain Skin: denies: lesions Neurological: weakness Hematological/Lymphatic: denies: easy bleeding ED Past Medical Hx - Past Medical History Previous Medical History?: Yes Hx Congestive Heart Failure: No Hx Diabetes: Yes Hx Renal Disease: Yes (Stage 2) Hx Seizures: Yes Hx Asthma: No Hx COPD: No Additional medical history: hypotension, hypothyroidism, Dante's disease - Surgical History Hx Cholecystectomy: Yes Hx Appendectomy: Yes Additional Surgical History: 4. port right chest wall - Social History Smoking Status: Never Smoker Substance Use Type: None - Medications Home Medications: Home Medications Medication Instructions Recorded Confirmed Last Taken Type Levothyroxine Sodium [Synthroid] 125 mcg PO DAILY 09/23/18 12/25/18 11/18/18 10:01 History levETIRAcetam [Keppra TAB] 500 mg PO BID #60 tablet 10/26/18 12/25/18 11/16/18 09:00 Rx Sertraline [Zoloft] 50 mg PO DAILY 12/10/18 12/25/18 Unknown History Famotidine [Pepcid] 20 mg PO BID #30 tablet 12/14/18 12/25/18 Unknown Rx Fludrocortisone [Florinef] 0.1 mg PO DAILY #30 tablet 12/14/18 12/25/18 Unknown Rx Hydrocortisone [Cortef TAB] 10 mg PO BID #60 tablet 12/14/18 12/25/18 Unknown Rx Insulin NPH/Regular [Novolin 70/30] 5 unit SQ BIDDIAB #10 ml 12/23/18 12/25/18 Unknown Rx Ondansetron (Nf) [Zofran TAB] 8 mg PO Q8HR PRN #14 tablet 12/23/18 12/25/18 Unknown Rx Acetaminophen [Non-Aspirin Extra 500 mg PO Q6HR PRN #30 tablet 12/26/18 Unknown Rx Strength] Selena Root [Selena] 250 mg PO QID PRN #30 capsule 12/26/18 Unknown Rx Metoclopramide [Reglan] 10 mg PO QID PRN #30 tablet 12/26/18 Unknown Rx levoFLOXacin [Levaquin] 750 mg PO QDAY #9 tablet 12/26/18 Unknown Rx ED Physical Exam - General Limitations: No Limitations General appearance: alert, in no apparent distress - Head Head exam: Present: atraumatic, normocephalic - Eye Eye exam: Present: normal appearance, EOMI. Absent: nystagmus - ENT ENT exam: Present: normal orophraynx, mucous membranes moist, normal external ear exam - Neck Neck exam: Present: normal inspection, full ROM. Absent: tenderness, meningis mus - Respiratory Respiratory exam: Present: normal lung sounds bilaterally. Absent: respiratory distress, wheezes, rales, rhonchi, stridor, chest wall tenderness - Cardiovascular Cardiovascular Exam: Present: regular rate, normal rhythm, normal heart sounds. Absent: bradycardia, tachycardia, irregular rhythm, systolic murmur, diastolic murmur, rubs, gallop - GI/Abdominal GI/Abdominal exam: Present: soft. Absent: distended, tenderness, guarding, rebound, rigid, pulsatile mass - Extremities Exam Extremities exam: Present: normal inspection, full ROM, other (2+ pulses noted in the bilateral upper, lower extremities. Compartments soft. No long bony tenderness. The pelvis is stable.). Absent: calf tenderness - Back Exam Back exam: Present: normal inspection, full ROM, CVA tenderness (R), CVA tenderness (L). Absent: paraspinal tenderness, vertebral tenderness - Neurological Exam Neurological exam: Present: alert, oriented X3, normal gait, other (Extraocular movements intact. Tongue midline. No facial droop. Facial sensation intact to light touch in the V1, V2, V3 distribution bilaterally. 5 and 5 strength in 4 extremities.. Sensation is intact to light touch in 4 extremities.). Absent: motor sensory deficit - Psychiatric Psychiatric exam: Present: normal affect, normal mood - Skin Skin exam: Present: warm, dry, intact, normal color. Absent: rash ED Course Vital Signs 12/25/18 12/25/18 12/25/18 16:46 19:58 20:00 Temperature 98.2 F Pulse Rate 72 71 69 Respiratory 16 17 16 Rate Blood Pressure 116/77 121/73 O2 Sat by Pulse 100 99 Oximetry 12/25/18 12/25/18 12/25/18 20:16 20:30 20:45 Temperature Pulse Rate 68 70 65 Respiratory 15 18 17 Rate Blood Pressure 123/82 123/82 O2 Sat by Pulse 100 99 100 Oximetry 12/25/18 12/25/18 12/25/18 21:00 21:15 21:30 Temperature Pulse Rate 67 73 70 Respiratory 22 16 15 Rate Blood Pressure 107/74 107/74 101/68 O2 Sat by Pulse 99 99 97 Oximetry 12/25/18 12/25/18 12/25/18 21:45 22:07 22:15 Temperature Pulse Rate 68 65 65 Respiratory 19 17 20 Rate Blood Pressure 107/74 107/74 107/74 O2 Sat by Pulse 100 100 100 Oximetry 12/25/18 12/25/18 12/25/18 22:30 22:45 23:00 Temperature Pulse Rate 65 64 64 Respiratory 17 19 17 Rate Blood Pressure 119/76 119/76 122/80 O2 Sat by Pulse 99 100 100 Oximetry 12/25/18 12/25/18 12/25/18 23:15 23:30 23:45 Temperature Pulse Rate 66 69 66 Respiratory 16 15 17 Rate Blood Pressure 122/80 112/58 112/58 O2 Sat by Pulse 100 98 100 Oximetry 12/26/18 12/26/18 00:00 00:15 Temperature Pulse Rate 67 67 Respiratory 16 16 Rate Blood Pressure 114/75 114/75 O2 Sat by Pulse 100 100 Oximetry - Reevaluation(s) Reevaluation #1: 12/25/18 22:40 Differential diagnosis, including but not limited to: Hyperglycemic state, pyelonephritis, dehydration Assessment and plan 28-year-old female with signs of hyperglycemia, laboratory studies not consistent with diabetic ketoacidosis, and also probable clinical pyelonephritis. The patient is afebrile with reassuring vital signs, does not have intractable nausea and vomiting, and is tolerating liquid feeds. We will give the patient IV fluids, pain medication, nausea medication, and load empirically with antibiotics. Patient given 15 units of insulin so far, still hyperglycemic, ordered for an additional 10 units of insulin. We'll reassess after her therapies have been completed. Patient may be suitable for a trial of outpatient management with oral antibiotics and pain medication, nausea medication, assuming her hyperglycemia can be corrected. 12/25/18 22:41 12/25/18 22:43 Laboratory studies reviewed and appreciated. Transaminitis appears to be chronic. Renal insufficiency appears to be improved when compared to prior. Reevaluation #2: 12/26/18 00:15 Patient reassessed multiple times. Accu-Chek improved to 254. Patient feels improved, tolerating liquid feeds, walking with a steady gait, is currently watc bev movies on her computer device. The patient has been observed in this emergency room for approximately 8 hours. The patient is medically suitable for a trial of oral outpatient antibiotic management. Extensive discussion had with the patient who verbalizes understanding. Through shared decision making, patient agrees for trial home outpatient antibiotics, and indicates she will follow up with us or her primary care doctor in 2 days for a repeat checkup/evaluation. Her past medical history is reviewed and appreciated, but given the objective data currently, the patient will be suitable for a trial of oral outpatient antibiotic management at this time. The patient verbalizes understanding. ED Medical Decision Making - Lab Data Result diagrams: 12/25/18 18:22 12/25/18 18:22 Vital Signs 12/25/18 12/25/18 12/25/18 16:46 19:58 20:00 Temperature 98.2 F Pulse Rate 72 71 69 Respiratory 16 17 16 Rate Blood Pressure 116/77 121/73 O2 Sat by Pulse 100 99 Oximetry 12/25/18 12/25/18 12/25/18 20:16 20:30 20:45 Temperature Pulse Rate 68 70 65 Respiratory 15 18 17 Rate Blood Pressure 123/82 123/82 O2 Sat by Pulse 100 99 100 Oximetry 12/25/18 12/25/18 12/25/18 21:00 21:15 21:30 Temperature Pulse Rate 67 73 70 Respiratory 22 16 15 Rate Blood Pressure 107/74 107/74 101/68 O2 Sat by Pulse 99 99 97 Oximetry 12/25/18 21:45 Temperature Pulse Rate 68 Respiratory 19 Rate Blood Pressure 107/74 O2 Sat by Pulse 100 Oximetry Lab Results 12/25/18 12/25/18 12/25/18 Range/Units 18:14 18:22 18:22 WBC 8.4 (4.5-11.0) K/mm3 RBC 3.71 (3.65-5.03) M/mm3 Hgb 10.2 (10.1-14.3) gm/dl Hct 30.7 (30.3-42.9) % MCV 83 (79-97) fl MCH 27 L (28-32) pg MCHC 33 (30-34) % RDW 16.9 H (13.2-15.2) % Plt Count 224 (140-440) K/mm3 Sodium 130 L D (137-145) mmol/L Potassium 4.0 (3.6-5.0) mmol/L Chloride 91.0 L (98-107) mmol/L Carbon Dioxide 25 (22-30) mmol/L Anion Gap 18 mmol/L BUN 19 H (7-17) mg/dL Creatinine 1.5 H (0.7-1.2) mg/dL Estimated GFR 50 ml/min BUN/Creatinine Ratio 13 % Glucose 530 H* (65-100) mg/dL POC Glucose > 500 H (70-105) Calcium 8.4 D (8.4-10.2) mg/dL Total Bilirubin 0.40 (0.1-1.2) mg/dL AST 161 H (5-40) units/L ALT 143 H (7-56) units/L Alkaline Phosphatase 157 H (35-129) units/L Total Protein 6.2 L (6.3-8.2) g/dL Albumin 3.6 L (3.9-5) g/dL Albumin/Globulin Ratio 1.4 % Urine Color (Yellow) Urine Turbidity (Clear) Urine pH (5.0-7.0) Ur Specific Wellborn (1.003-1.030) Urine Protein (Negative) mg/dL Urine Glucose (UA) (Negative) mg/dL Urine Ketones (Negative) mg/dL Urine Blood (Negative) Urine Nitrite (Negative) Urine Bilirubin (Negative) Urine Urobilinogen (<2.0) mg/dL Ur Leukocyte Esterase (Negative) Urine WBC (Auto) (0.0-6.0) /HPF Urine RBC (Auto) (0.0-6.0) /HPF U Epithel Cells (Auto) (0-13.0) /HPF Urine Bacteria (Auto) (Negative) /HPF Urine HCG, Qual (Negative) 12/25/18 12/25/18 Range/Units 21:54 Unknown WBC (4.5-11.0) K/mm3 RBC (3.65-5.03) M/mm3 Hgb (10.1-14.3) gm/dl Hct (30.3-42.9) % MCV (79-97) fl MCH (28-32) pg MCHC (30-34) % RDW (13.2-15.2) % Plt Count (140-440) K/mm3 Sodium (137-145) mmol/L Potassium (3.6-5.0) mmol/L Chloride (98-107) mmol/L Carbon Dioxide (22-30) mmol/L Anion Gap mmol/L BUN (7-17) mg/dL Creatinine (0.7-1.2) mg/dL Estimated GFR ml/min BUN/Creatinine Ratio % Glucose (65-100) mg/dL POC Glucose > 500 H (70-105) Calcium (8.4-10.2) mg/dL Total Bilirubin (0.1-1.2) mg/dL AST (5-40) units/L ALT (7-56) units/L Alkaline Phosphatase (35-129) units/L Total Protein (6.3-8.2) g/dL Albumin (3.9-5) g/dL Albumin/Globulin Ratio % Urine Color Straw (Yellow) Urine Turbidity Clear (Clear) Urine pH 6.0 (5.0-7.0) Ur Specific Wellborn 1.021 (1.003-1.030) Urine Protein <15 mg/dl (Negative) mg/dL Urine Glucose (UA) >=500 (Negative) mg/dL Urine Ketones Tr (Negative) mg/dL Urine Blood Neg (Negative) Urine Nitrite Neg (Negative) Urine Bilirubin Neg (Negative) Urine Urobilinogen < 2.0 (<2.0) mg/dL Ur Leukocyte Esterase Sm (Negative) Urine WBC (Auto) 22.0 H (0.0-6.0) /HPF Urine RBC (Auto) 5.0 (0.0-6.0) /HPF U Epithel Cells (Auto) 1.0 (0-13.0) /HPF Urine Bacteria (Auto) 1+ (Negative) /HPF Urine HCG, Qual Negative (Negative) Critical care attestation.: If time is entered above; I have spent that time in minutes in the direct care of this critically ill patient, excluding procedure time. ED Disposition Clinical Impression: UTI (urinary tract infection), Elevated LFTs, Hyperglycemia Disposition: - TO HOME OR SELFCARE Is pt being admited?: No Does the pt Need Aspirin: No Condition: Stable Additional Instructions: Cultures were sent today, and results will be available in the next 3-5 days. Please have your primary care doctor contact the medical records department to obtain culture results. Take the antibiotics as directed, pain medication as needed, nausea medication as needed. Do not consume alcohol while taking these medications. Continue remainder of outpatient medications. Follow-up in 2 days for repeat checkup/evaluation. Patient may return to this emergency room for repeat checkup/evaluation, will follow up with her primary care doctor, or with an urgent care center. Return to the emergency room right away with projectile vomiting, change in mental status, confusion, inability to tolerate liquid feeds, new pain, worsened pain, or high blood glucose levels that did not respon d to typical therapies. Prescriptions: Selena Root [Selena] 250 mg PO QID PRN #30 capsule PRN Reason: Nausea levoFLOXacin [Levaquin] 750 mg PO QDAY #9 tablet Acetaminophen [Non-Aspirin Extra Strength] 500 mg PO Q6HR PRN #30 tablet PRN Reason: Pain , Severe (7-10) Metoclopramide [Reglan] 10 mg PO QID PRN #30 tablet PRN Reason: Nausea Referrals: ZAINA LONDONO MD [Primary Care Provider] - 3-5 Days [facility] [Provider Group] - 3-5 Days
[2018-12-25] MEDS ORDERED: FLORINEF PO SCH (21:00)
[2018-12-25] MEDS ORDERED: SYNTHROID PO SCH (21:00)
[2018-12-25] MEDS ORDERED: KEPPRA PO SCH (22:00)
[2018-12-25] MEDS ORDERED: CORTEF PO SCH (22:00)
[2018-12-25] MEDS ORDERED: PEPCID PO SCH (22:00)
[2018-12-25] MEDS ORDERED: NACL 0.9% 500 ML 500 ML IV ONE (23:25)
[2018-12-26 00:56] VITALS: BP 114/75
== END 2018-12-26 01:39 | disposition home or self-care (01) ==
LOC: ED 16:16
DX: N39.0 Urinary tract infection, site not specified (principal); R79.89 Other specified abnormal findings of blood chemistry; E11.65 Type 2 diabetes mellitus with hyperglycemia; E11.22 Type 2 diabetes mellitus with diabetic chronic kidney disease; N18.2 Chronic kidney disease, stage 2 (mild); E03.9 Hypothyroidism, unspecified; E27.1 Primary adrenocortical insufficiency; Z79.4 Long term (current) use of insulin; Z90.49 Acquired absence of other specified parts of digestive tract; Z79.899 Other long term (current) drug therapy; Z88.1 Allergy status to other antibiotic agents; Z88.0 Allergy status to penicillin; Z88.8 Allergy status to other drugs, medicaments and biological substances; Z98.890 Other specified postprocedural states
CPT/HCPCS: 36415; 80053; 81001; 81025; 82962; 83735; 85027; 87086; 96361; 96365; 96366; 96375; 96376; 99283; J1956; J3010; J7030; J7040; J1815

== ENCOUNTER 2018-12-31 15:48 | Inpatient (IN) | payer MEDICAID ==
[2018-12-31] MEDS ORDERED: ZOFRAN IV ONE (16:08)
[2018-12-31] MEDS ORDERED: HumuLIN R IV ONE ×2 (16:08→18:53)
[2018-12-31] MEDS ORDERED: NACL 0.9% 1000 ML 1,000 ML IV ONE ×3 (16:08→18:53)
[2018-12-31 16:45] LABS: Basophils # (Auto) 0.1 K/mm3 (0.0-0.1); Basophils % (Auto) 1.1 % (0.0-1.8); Eosinophils # (Auto) 0.2 K/mm3 (0.0-0.4); Eosinophils % (Auto) 2.7 % (0.0-4.3); Hematocrit 33.4 % (30.3-42.9); Lymphocytes # (Auto) 2.7 K/mm3 (1.2-5.4); Lymphocytes % (Auto) 39.9 % (13.4-35.0); Mean Corpuscular HGB Conc 33 % (30-34); Mean Corpuscular Volume 83 fl (79-97); Monocytes # (Auto) 0.3 K/mm3 (0.0-0.8); Monocytes % (Auto) 4.7 % (0.0-7.3); Platelet Count 236 K/mm3 (140-440); Red Blood Count 4.05 M/mm3 (3.65-5.03); Red Cell Distribution Width 17.2 % (13.2-15.2)
[2018-12-31 16:58] LABS: BUN/Creatinine Ratio 13; Blood Urea Nitrogen 27 mg/dL (7-17); Calcium 8.8 mg/dL (8.4-10.2); Hemolysis Index 3
[2018-12-31 17:18] LABS: Alanine Aminotransferase 93 units/L (7-56); Albumin 3.1 g/dL (3.9-5)
[2018-12-31 17:19] LABS: Bilirubin,Direct < 0.2 mg/dL (0-0.2)
--- NOTE | 2018-12-31 18:32 | Cat Scan Report ---
CT ABDOMEN AND PELVIS WITHOUT CONTRAST INDICATION: n,v hyperglycemia, hx of appy,choley, csxn. TECHNIQUE: Axial CT images were obtained through the abdomen and pelvis without IV contrast. All CT scans at our [facility] location are performed using CT dose reduction for ALARA by means of automated exposure control. COMPARISON: None available. FINDINGS: LOWER CHEST: No significant abnormality. LIVER: No significant abnormality. GALLBLADDER: Surgically absent BILE DUCTS: No significant abnormality. PANCREAS: No significant abnormality. SPLEEN: No significant abnormality. ADRENALS: No significant abnormality. RIGHT KIDNEY and URETER: No significant abnormality. LEFT KIDNEY and URETER: No significant abnormality. STOMACH and SMALL BOWEL: No significant abnormality. COLON: No significant abnormality. APPENDIX: Surgically absent PERITONEUM: No free fluid. No free air. No fluid collection. LYMPH NODES: No significant adenopathy. AORTA and ARTERIES: No significant abnormality. IVC and VEINS: No significant abnormality. URINARY BLADDER: No significant abnormality. REPRODUCTIVE ORGANS: No significant abnormality. ADDITIONAL FINDINGS: None. SKELETAL SYSTEM: Old T12 compression fracture involving superior endplate with 20% loss of vertebral body height. Limbus vertebrae involving the anterior superior aspect of the L4 vertebrae. IMPRESSION: 1. No urinary tract calculi or hydronephrosis. 2. No acute inflammatory process or bowel obstruction. 3. Old T12 compression fracture Signer Name: Phani Bolanos MD Signed: 12/31/2018 6:28 PM Workstation Name: [email or web address]
--- NOTE | 2018-12-31 18:52 | Emergency Department Report ---
ED N/V/D HPI - General Chief complaint: Hyperglycemia Stated complaint: HYPERGLYCEMIA/HYPOTENSION Time Seen by Provider: 12/31/18 16:06 Source: patient, EMS Mode of arrival: Stretcher Limitations: No Limitations - History of Present Illness Initial comments: 28-year-old female with a past medical history of diabetes on insulin, seizures, chronic renal insufficiency, Dante's disease, hypothyroidism, and previous appendectomy, cholecystectomy, 4. She presents to the hospital complaints of glucose registering high at home since yesterday. Today she developed nausea, vomiting, and by mouth intolerance. She states she has chronic diarrhea. She complains of mild generalized abdominal pain. She states she is compliant with her medications. Medical record review patient was here on December 26 and diagnosed a UTI. She states she is taking the prescribed Levaquin. Urine cultures reviewed and show mixed skin kaitna. Patient denies hematemesis, hematochezia, or fever. She takes steroids daily for Dante's disease. She also has a port. - Related Data Home Medications Medication Instructions Recorded Confirmed Last Taken Levothyroxine Sodium [Synthroid] 125 mcg PO DAILY 09/23/18 12/25/18 11/18/18 10:01 Sertraline [Zoloft] 50 mg PO DAILY 12/10/18 12/25/18 Unknown Previous Rx's Medication Instructions Recorded Last Taken Type levETIRAcetam [Keppra TAB] 500 mg PO BID #60 tablet 10/26/18 11/16/18 09:00 Rx Famotidine [Pepcid] 20 mg PO BID #30 tablet 12/14/18 Unknown Rx Fludrocortisone [Florinef] 0.1 mg PO DAILY #30 tablet 12/14/18 Unknown Rx Hydrocortisone [Cortef TAB] 10 mg PO BID #60 tablet 12/14/18 Unknown Rx Insulin NPH/Regular [Novolin 70/30] 5 unit SQ BIDDIAB #10 ml 12/23/18 Unknown Rx Ondansetron (Nf) [Zofran TAB] 8 mg PO Q8HR PRN #14 tablet 12/23/18 Unknown Rx Acetaminophen [Non-Aspirin Extra 500 mg PO Q6HR PRN #30 tablet 12/26/18 Unknown Rx Strength] Selena Root [Selena] 250 mg PO QID PRN #30 capsule 12/26/18 Unknown Rx Metoclopramide [Reglan] 10 mg PO QID PRN #30 tablet 12/26/18 Unknown Rx levoFLOXacin [Levaquin] 750 mg PO QDAY #9 tablet 12/26/18 Unknown Rx Allergies Allergy/AdvReac Type Severity Reaction Status Date / Time Penicillins Allergy Angioedema Verified 12/31/18 16:01 vortioxetine Allergy Unknown Verified 12/31/18 16:01 [From Trintellix] ziprasidone [From Geodon] Allergy Angioedema Verified 12/31/18 16:01 vancomycin AdvReac Itching Verified 12/31/18 16:01 ED Review of Systems ROS: Stated complaint: HYPERGLYCEMIA/HYPOTENSION Other details as noted in HPI Comment: All other systems reviewed and negative ED Past Medical Hx - Past Medical History Previous Medical History?: Yes Hx Congestive Heart Failure: No Hx Diabetes: Yes Hx Renal Disease: Yes (Stage 2) Hx Seizures: Yes Hx Asthma: No Hx COPD: No Additional medical history: hypotension, hypothyroidism, Dante's disease - Surgical History Past Surgical History?: Yes Hx Cholecystectomy: Yes Hx Appendectomy: Yes Additional Surgical History: 4. port right chest wall - Social History Smoking Status: Never Smoker Substance Use Type: None - Medications Home Medications: Home Medications Medication Instructions Recorded Confirmed Last Taken Type Levothyroxine Sodium [Synthroid] 125 mcg PO DAILY 09/23/18 12/25/18 11/18/18 10:01 History levETIRAcetam [Keppra TAB] 500 mg PO BID #60 tablet 10/26/18 12/25/18 11/16/18 09:00 Rx Sertraline [Zoloft] 50 mg PO DAILY 12/10/18 12/25/18 Unknown History Famotidine [Pepcid] 20 mg PO BID #30 tablet 12/14/18 12/25/18 Unknown Rx Fludrocortisone [Florinef] 0.1 mg PO DAILY #30 tablet 12/14/18 12/25/18 Unknown Rx Hydrocortisone [Cortef TAB] 10 mg PO BID #60 tablet 12/14/18 12/25/18 Unknown Rx Insulin NPH/Regular [Novolin 70/30] 5 unit SQ BIDDIAB #10 ml 12/23/18 12/25/18 Unknown Rx Ondansetron (Nf) [Zofran TAB] 8 mg PO Q8HR PRN #14 tablet 12/23/18 12/25/18 Unknown Rx Acetaminophen [Non-Aspirin Extra 500 mg PO Q6HR PRN #30 tablet 12/26/18 Unknown Rx Strength] Selena Root [Selena] 250 mg PO QID PRN #30 capsule 12/26/18 Unknown Rx Metoclopramide [Reglan] 10 mg PO QID PRN #30 tablet 12/26/18 Unknown Rx levoFLOXacin [Levaquin] 750 mg PO QDAY #9 tablet 12/26/18 Unknown Rx ED Physical Exam - General Limitations: No Limitations ED Course Vital Signs 12/31/18 12/31/18 12/31/18 15:56 16:00 16:01 Temperature Pulse Rate 70 Respiratory 15 18 Rate Blood Pressure 95/61 O2 Sat by Pulse 57 L 99 Oximetry 12/31/18 12/31/18 12/31/18 16:16 16:27 16:30 Temperature 98.4 F Pulse Rate 74 78 Respiratory 11 L 14 Rate Blood Pressure 87/62 88/63 O2 Sat by Pulse 98 96 Oximetry 12/31/18 12/31/18 12/31/18 16:45 17:00 17:15 Temperature Pulse Rate 78 77 75 Respiratory 10 L 10 L 16 Rate Blood Pressure 87/54 96/60 108/73 O2 Sat by Pulse 95 98 100 Oximetry 12/31/18 12/31/18 12/31/18 17:56 18:00 18:15 Temperature Pulse Rate 78 78 74 Respiratory 15 17 13 Rate Blood Pressure 108/73 106/77 105/70 O2 Sat by Pulse 100 99 76 L Oximetry 12/31/18 12/31/18 18:30 18:45 Temperature Pulse Rate 73 73 Respiratory 14 10 L Rate Blood Pressure 114/77 113/79 O2 Sat by Pulse 100 100 Oximetry - Reevaluation(s) Reevaluation #1: 12/31/18 18:52 Patient's pulse ox is 99-100% on room air. There there are several erroneous pulse ox measurements documented. ED Medical Decision Making - Lab Data Result diagrams: 12/31/18 16:23 12/31/18 16:23 Lab Results 12/31/18 12/31/18 12/31/18 Range/Units 16:12 16:23 16:23 WBC 6.6 (4.5-11.0) K/mm3 RBC 4.05 (3.65-5.03) M/mm3 Hgb 11.0 (10.1-14.3) gm/dl Hct 33.4 (30.3-42.9) % MCV 83 (79-97) fl MCH 27 L (28-32) pg MCHC 33 (30-34) % RDW 17.2 H (13.2-15.2) % Plt Count 236 (140-440) K/mm3 Lymph % (Auto) 39.9 H (13.4-35.0) % [place] % (Auto) 4.7 (0.0-7.3) % Eos % (Auto) 2.7 (0.0-4.3) % Baso % (Auto) 1.1 (0.0-1.8) % Lymph # 2.7 (1.2-5.4) K/mm3 [place] # 0.3 (0.0-0.8) K/mm3 Eos # 0.2 (0.0-0.4) K/mm3 Baso # 0.1 (0.0-0.1) K/mm3 Seg Neutrophils % 51.6 (40.0-70.0) % Seg Neutrophils # 3.4 (1.8-7.7) K/mm3 VBG pH (7.320-7.420) Sodium 122 L (137-145) mmol/L Potassium 4.7 (3.6-5.0) mmol/L Chloride 80.8 L (98-107) mmol/L Carbon Dioxide 27 (22-30) mmol/L Anion Gap 19 mmol/L BUN 27 H (7-17) mg/dL Creatinine 2.1 H (0.7-1.2) mg/dL Estimated GFR 28 ml/min BUN/Creatinine Ratio 13 % Glucose 805 H* (65-100) mg/dL POC Glucose > 500 H (70-105) Calcium 8.8 (8.4-10.2) mg/dL Phosphorus (2.5-4.5) mg/dL Magnesium (1.7-2.3) mg/dL Total Bilirubin (0.1-1.2) mg/dL Direct Bilirubin (0-0.2) mg/dL Indirect Bilirubin mg/dL AST (5-40) units/L ALT (7-56) units/L Alkaline Phosphatase (35-129) units/L Troponin T < 0.010 (0.00-0.029) ng/mL Total Protein (6.3-8.2) g/dL Albumin (3.9-5) g/dL Albumin/Globulin Ratio % Lipase (13-60) units/L HCG, Qual (Negative) 12/31/18 12/31/18 12/31/18 Range/Units 16:23 16:23 16:23 WBC (4.5-11.0) K/mm3 RBC (3.65-5.03) M/mm3 Hgb (10.1-14.3) gm/dl Hct (30.3-42.9) % MCV (79-97) fl MCH (28-32) pg MCHC (30-34) % RDW (13.2-15.2) % Plt Count (140-440) K/mm3 Lymph % (Auto) (13.4-35.0) % [place] % (Auto) (0.0-7.3) % Eos % (Auto) (0.0-4.3) % Baso % (Auto) (0.0-1.8) % Lymph # (1.2-5.4) K/mm3 [place] # (0.0-0.8) K/mm3 Eos # (0.0-0.4) K/mm3 Baso # (0.0-0.1) K/mm3 Seg Neutrophils % (40.0-70.0) % Seg Neutrophils # (1.8-7.7) K/mm3 VBG pH 7.397 (7.320-7.420) Sodium (137-145) mmol/L Potassium (3.6-5.0) mmol/L Chloride (98-107) mmol/L Carbon Dioxide (22-30) mmol/L Anion Gap mmol/L BUN (7-17) mg/dL Creatinine (0.7-1.2) mg/dL Estimated GFR ml/min BUN/Creatinine Ratio % Glucose (65-100) mg/dL POC Glucose (70-105) Calcium (8.4-10.2) mg/dL Phosphorus (2.5-4.5) mg/dL Magnesium (1.7-2.3) mg/dL Total Bilirubin 0.50 (0.1-1.2) mg/dL Direct Bilirubin < 0.2 (0-0.2) mg/dL Indirect Bilirubin 0.3 mg/dL AST 126 H (5-40) units/L ALT 93 H (7-56) units/L Alkaline Phosphatase 137 H (35-129) units/L Troponin T (0.00-0.029) ng/mL Total Protein 4.9 L (6.3-8.2) g/dL Albumin 3.1 L (3.9-5) g/dL Albumin/Globulin Ratio 1.7 % Lipase 28 (13-60) units/L HCG, Qual Negative (Negative) 12/31/18 12/31/18 Range/Units 16:23 18:10 WBC (4.5-11.0) K/mm3 RBC (3.65-5.03) M/mm3 Hgb (10.1-14.3) gm/dl Hct (30.3-42.9) % MCV (79-97) fl MCH (28-32) pg MCHC (30-34) % RDW (13.2-15.2) % Plt Count (140-440) K/mm3 Lymph % (Auto) (13.4-35.0) % [place] % (Auto) (0.0-7.3) % Eos % (Auto) (0.0-4.3) % Baso % (Auto) (0.0-1.8) % Lymph # (1.2-5.4) K/mm3 [place] # (0.0-0.8) K/mm3 Eos # (0.0-0.4) K/mm3 Baso # (0.0-0.1) K/mm3 Seg Neutrophils % (40.0-70.0) % Seg Neutrophils # (1.8-7.7) K/mm3 VBG pH (7.320-7.420) Sodium (137-145) mmol/L Potassium (3.6-5.0) mmol/L Chloride (98-107) mmol/L Carbon Dioxide (22-30) mmol/L Anion Gap mmol/L BUN (7-17) mg/dL Creatinine (0.7-1.2) mg/dL Estimated GFR ml/min BUN/Creatinine Ratio % Glucose (65-100) mg/dL POC Glucose 425 H (70-105) Calcium (8.4-10.2) mg/dL Phosphorus 4.60 H (2.5-4.5) mg/dL Magnesium 1.90 (1.7-2.3) mg/dL Total Bilirubin (0.1-1.2) mg/dL Direct Bilirubin (0-0.2) mg/dL Indirect Bilirubin mg/dL AST (5-40) units/L ALT (7-56) units/L Alkaline Phosphatase (35-129) units/L Troponin T (0.00-0.029) ng/mL Total Protein (6.3-8.2) g/dL Albumin (3.9-5) g/dL Albumin/Globulin Ratio % Lipase (13-60) units/L HCG, Qual (Negative) - EKG Data -: EKG Interpreted by Nh EKG shows normal: sinus rhythm, axis (qrs 34), QRS complexes (qrsd 97), ST-T waves (no stemi) Rate: normal (74) - EKG Data When compared to previous EKG there are: no significant change - Radiology Data Radiology results: report reviewed CT ABDOMEN AND PELVIS WITHOUT CONTRAST INDICATION: n,v hyperglycemia, hx of mary arguelles, csxn. TECHNIQUE: Axial CT images were obtained through the abdomen and pelvis without IV contrast. All CT scans at this location are performed using CT dose reduction for ALARA by means of automated exposure control. COMPARISON: None available. FINDINGS: LOWER CHEST: No significant abnormality. LIVER: No significant abnormality. GALLBLADDER: Surgically absent BILE DUCTS: No significant abnormality. PANCREAS: No significant abnormality. SPLEEN: No significant abnormality. ADRENALS: No significant abnormality. RIGHT KIDNEY and URETER: No significant abnormality. LEFT KIDNEY and URETER: No significant abnormality. STOMACH and SMALL BOWEL: No significant abnormality. COLON: No significant abnormality. APPENDIX: Surgically absent PERITONEUM: No free fluid. No free air. No fluid collection. LYMPH NODES: No significant adenopathy. AORTA and ARTERIES: No significant abnormality. IVC and VEINS: No significant ab normality. URINARY BLADDER: No significant abnormality. REPRODUCTIVE ORGANS: No significant abnormality. ADDITIONAL FINDINGS: None. SKELETAL SYSTEM: Old T12 compression fracture involving superior endplate with 20% loss of vertebral body height. Limbus vertebrae involving the anterior superior aspect of the L4 vertebrae. IMPRESSION: 1. No urinary tract calculi or hydronephrosis. 2. No acute inflammatory process or bowel obstruction. 3. Old T12 compression fracture - Medical Decision Making Patient with hyperglycemia, nausea, vomiting, with by mouth intolerance. No signs of DKA. CT unremarkable. Cultures pending. Borderline blood pressure likely related to Dante's disease. Worsening renal insufficiency likely secondary to dehydration. Patient treated with IV fluids, Zofran, and insulin in the ED. Hospitalist informed for admission. Urine pending at disposition. - Differential Diagnosis gastroenteritis, obstruction, DKA, hyperglycemia, infection Critical Care Time: No Critical care attestation.: If time is entered above; I have spent that time in minutes in the direct care of this critically ill patient, excluding procedure time. ED Disposition Clinical Impression: Uncontrolled diabetes mellitus, Hyperglycemia, Nausea & vomiting, Acute on chronic renal insufficiency, Dehydration, Dante's disease Disposition: OP ADMIT IP TO THIS HOSP Is pt being admited?: Yes Condition: Stable Referrals: [facility] MD JUJU [Primary Care Provider] - 3-5 Days Time of Disposition: 18:57 (Dr Han/hosp)
[2018-12-31] MEDS ORDERED: HumuLIN R ONE (19:31)
[2018-12-31] MEDS ORDERED: NACL 0.9% 1000 ML 1,000 ML ONE (19:32)
[2018-12-31] MEDS ORDERED: TYLENOL PO PRN (19:57)
[2018-12-31] MEDS ORDERED: SODIUM CHLORIDE FLUSH SYRINGE 10 ML IV PRN (19:57)
[2018-12-31] MEDS ORDERED: ZOFRAN IV PRN (19:57)
--- NOTE | 2018-12-31 20:34 | History and Physical Report ---
<EVELYN ALEXANDRE - Last Filed: 12/31/18 20:50> History of Present Illness Date of examination: 12/31/18 Date of admission: 12/31/18 19:25 Chief complaint: Hyperglycemia History of present illness: 28-year-old female with history of uncontrolled insulin-dependent diabetes, CKD2, seizure disorder, hypothyroidism, [place]'s disease who presents to [facility] ED with complaints of generalized abdominal pain, nausea, vomiting, diarrhea. Patient states that for the past 2 days she's been experiencing generalized abdominal pain accompanied by nausea vomiting and diarrhea. During this time she is continue to check her blood sugars and noticed that they have been elevated. She thought the elevation in blood sugar was due to a stressful event that occurred a few days ago. Her symptoms progressed and her blood sugars remained elevated even after taking her insulin, so she decided to come into the ED for further evaluation and treatment. Denies: Hematemisis, melena, hematochezia, fever, headache, visual disturbances, or gait dysfunction Past History Past Medical History: diabetes, hypothyroidism, other (hypotension, Dante's disease,) Past Surgical History: appendectomy, cholecystectomy, (x4), Other (right chest port) Social history: lives with family Family history: no significant family history Medications and Allergies Allergies Allergy/AdvReac Type Severity Reaction Status Date / Time Penicillins Allergy Angioedema Verified 12/31/18 16:01 vortioxetine Allergy Unknown Verified 12/31/18 16:01 [From Trintellix] ziprasidone [From Geodon] Allergy Angioedema Verified 12/31/18 16:01 vancomycin AdvReac Itching Verified 12/31/18 16:01 Home Medications Medication Instructions Recorded Confirmed Last Taken Type Levothyroxine Sodium [Synthroid] 125 mcg PO DAILY 09/23/18 12/25/18 11/18/18 1 0:01 History levETIRAcetam [Keppra TAB] 500 mg PO BID #60 tablet 10/26/18 12/25/18 11/16/18 09:00 Rx Sertraline [Zoloft] 50 mg PO DAILY 12/10/18 12/25/18 Unknown History Famotidine [Pepcid] 20 mg PO BID #30 tablet 12/14/18 12/25/18 Unknown Rx Fludrocortisone [Florinef] 0.1 mg PO DAILY #30 tablet 12/14/18 12/25/18 Unknown Rx Hydrocortisone [Cortef TAB] 10 mg PO BID #60 tablet 12/14/18 12/25/18 Unknown Rx Insulin NPH/Regular [Novolin 70/30] 5 unit SQ BIDDIAB #10 ml 12/23/18 12/25/18 Unknown Rx Ondansetron (Nf) [Zofran TAB] 8 mg PO Q8HR PRN #14 tablet 12/23/18 12/25/18 Unknown Rx Acetaminophen [Non-Aspirin Extra 500 mg PO Q6HR PRN #30 tablet 12/26/18 Unknown Rx Strength] Selena Root [Selena] 250 mg PO QID PRN #30 capsule 12/26/18 Unknown Rx Metoclopramide [Reglan] 10 mg PO QID PRN #30 tablet 12/26/18 Unknown Rx levoFLOXacin [Levaquin] 750 mg PO QDAY #9 tablet 12/26/18 Unknown Rx Active Meds: Active Medications Acetaminophen (Tylenol) 650 mg PO Q4H PRN PRN Reason: Pain MILD(1-3)/Fever >100.5/STEWARD Dextrose (D50w (25gm) Syringe) 50 ml IV PRN PRN PRN Reason: Hypoglycemia Docusate Sodium (Colace) 100 mg PO BID [facility] Famotidine (Pepcid) 20 mg PO BID [facility] Hydrocortisone Acetate (Cortef) 10 mg PO BID [facility] Sodium Chloride (Nacl 0.9% 1000 Ml) 1,000 mls @ 125 mls/hr IV DIRECT [facility] Insulin Glargine (Lantus) 20 units SUB-Q BID [facility] Insulin Human Lispro (Humalog) 0 unit SUB-Q Q6HR [facility]; Protocol Levetiracetam (Keppra) 500 mg PO BID [facility] Levothyroxine Sodium (Synthroid) 125 mcg PO DAILY [facility] Ondansetron HCl (Zofran) 4 mg IV Q8H PRN PRN Reason: Nausea And Vomiting Sertraline HCl (Zoloft) 50 mg PO DAILY [facility] Sodium Chloride (Sodium Chloride Flush Syringe 10 Ml) 10 ml IV BID [facility] Sodium Chloride (Sodium Chloride Flush Syringe 10 Ml) 10 ml IV PRN PRN PRN Reason: LINE FLUSH Review of Systems All systems: negative (reviewed in no additional remarkable complaints except as noted below) Gastrointestinal: nausea, vomiting, diarrhea Endocrine: high blood sugars Exam - Physical Exam Narrative exam: Physical exam General appearance: Present: Ill appearing, alert and oriented 3, adult female - EENT Eyes: Present: PERRL, EOM intact ENT: hearing intact, normal dentition - Neck Neck: Present: supple, normal ROM - Respiratory Respiratory effort: Non-labored Respiratory: Clear throughout - Cardiovascular Heart rate: 74 (bpm) Rhythm: Sinus rhythm Heart Sounds: Present: S1 & S2. Absent: rub, click - Extremities Extremities: no ischemia, pulses intact, abnormal (right chest port) - Peripheral Assessment Peripheral Pulses: within normal limits - Abdominal General gastrointestinal: soft, non-tender, normal bowel sounds - Integumentary Integumentary: Present: warm, dry - Musculoskeletal Musculoskeletal: generalized weakness, able to move all extremities -Neurological Neurological: CN II-XII intact - Psychiatric Psychiatric: cooperative - Constitutional Vitals: Temp Pulse Resp BP Pulse Ox 98.4 F 76 10 L 96/66 94 12/31/18 16:27 12/31/18 19:30 12/31/18 19:30 12/31/18 19:30 12/31/18 19:30 Results - Labs CBC & Chem 7: 12/31/18 16:23 12/31/18 16:23 Labs: Laboratory Last Values WBC 6.6 K/mm3 (4.5-11.0) 12/31/18 16:23 RBC 4.05 M/mm3 (3.65-5.03) 12/31/18 16:23 Hgb 11.0 gm/dl (10.1-14.3) 12/31/18 16:23 Hct 33.4 % (30.3-42.9) 12/31/18 16:23 MCV 83 fl (79-97) 12/31/18 16:23 MCH 27 pg (28-32) L 12/31/18 16:23 MCHC 33 % (30-34) 12/31/18 16:23 RDW 17.2 % (13.2-15.2) H 12/31/18 16:23 Plt Count 236 K/mm3 (140-440) 12/31/18 16:23 Lymph % (Auto) 39.9 % (13.4-35.0) H 12/31/18 16:23 [place] % (Auto) 4.7 % (0.0-7.3) 12/31/18 16:23 Eos % (Auto) 2.7 % (0.0-4.3) 12/31/18 16:23 Baso % (Auto) 1.1 % (0.0-1.8) 12/31/18 16:23 Lymph # 2.7 K/mm3 (1.2-5.4) 12/31/18 16:23 [place] # 0.3 K/mm3 (0.0-0.8) 12/31/18 16:23 Eos # 0.2 K/mm3 (0.0-0.4) 12/31/18 16:23 Baso # 0.1 K/mm3 (0.0-0.1) 12/31/18 16:23 Seg Neutrophils % 51.6 % (40.0-70.0) 12/31/18 16:23 Seg Neutrophils # 3.4 K/mm3 (1.8-7.7) 12/31/18 16:23 VBG pH 7.397 (7.320-7.420) 12/31/18 16:23 Sodium 122 mmol/L (137-145) L 12/31/18 16:23 Potassium 4.7 mmol/L (3.6-5.0) 12/31/18 16:23 Chloride 80.8 mmol/L (98-107) L 12/31/18 16:23 Carbon Dioxide 27 mmol/L (22-30) 12/31/18 16:23 19 mmol/L 12/31/18 16:23 BUN 27 mg/dL (7-17) H 12/31/18 16:23 2.1 mg/dL (0.7-1.2) H 12/31/18 16:23 Estimated GFR 28 ml/min 12/31/18 16:23 13 % 12/31/18 16:23 Glucose 805 mg/dL (65-100) H* 12/31/18 16:23 POC Glucose 425 (70-105) H 12/31/18 18:10 Calcium 8.8 mg/dL (8.4-10.2) 12/31/18 16:23 Phosphorus 4.60 mg/dL (2.5-4.5) H 12/31/18 16:23 Magnesium 1.90 mg/dL (1.7-2.3) 12/31/18 16:23 0.50 mg/dL (0.1-1.2) 12/31/18 16:23 < 0.2 mg/dL (0-0.2) 12/31/18 16:23 0.3 mg/dL 12/31/18 16:23 AST 126 units/L (5-40) H 12/31/18 16:23 ALT 93 units/L (7-56) H 12/31/18 16:23 137 units/L (35-129) H 12/31/18 16:23 < 0.010 ng/mL (0.00-0.029) 12/31/18 16:23 4.9 g/dL (6.3-8.2) L 12/31/18 16:23 3.1 g/dL (3.9-5) L 12/31/18 16:23 1.7 % 12/31/18 16:23 28 units/L (13-60) 12/31/18 16:23 HCG, Qual Negative (Negative) 12/31/18 16:23 - Imaging and Cardiology Imaging and Cardiology: CT Abd/Pelvis: IMPRESSION: 1. No urinary tract calculi or hydronephrosis. 2. No acute inflammatory process or bowel obstruction. 3. Old T12 compression fracture Assessment and Plan Assessment and plan: 28-year-old female with history of uncontrolled insulin-dependent diabetes, CKD2, seizure disorder, hypothyroidism, [place]'s disease who presents to [facility] ED with complaints of generalized abdominal pain, nausea, vomiting, diarrhea for the past 2 days. Review of chart shows this is patient's 8th for this year at our facility. On 12/25 she presented to ED with complaints of UTI and hyperglycemia. She was treated with insulin and given a prescription for by mouth Levaquin. On presentation patient had blood glucose of 805, urine negative for ketones. She is chronically hyponatremic, on this admission she presents with a sodium of 122. HHS DM 1- uncontrolled HgnA1c 10.4 Dehydration BRANDEE-likely due to dehydration CKD2 Hyponatremia Hypotension Seizure disorder Hypothyroidism History of [place]'s disease ??UTI Plan: Continue supportive care Monitor electrolytes repeat as needed Hydrate with NS @ 125ml/hr POC BG monitoring Initial BG of 805, now 425 SSI and Lantus Continue Keppra 500 mg twice a day Continue Synthroid 125mcg daily Continue Cortef 10mg BID Keep scheduled outpatient appointment with double surface operator in 2 weeks UA pending, pt diagnosed with UTI on 12/26 and was given Levaquin 750mg daily x9 days, will resume Levaquin if UA positive DVT PPX on Heparin and SCD Advance Directives: No VTE prophylaxis?: Chemical Plan of care discussed with patient/family: Yes <AMMON BLACKBURN S - Last Filed: 01/01/19 15:52> History of Present Illness Date of admission: 12/31/18 19:25 Medications and Allergies Active Meds: Active Medications Acetaminophen (Tylenol) 650 mg PO Q4H PRN PRN Reason: Pain MILD(1-3)/Fever >100.5/STEWARD Dextrose (D50w (25gm) Syringe) 50 ml IV PRN PRN PRN Reason: Hypoglycemia Docusate Sodium (Colace) 100 mg PO BID [facility] Last Admin: 01/01/19 11:45 Dose: 100 mg Documented by: Famotidine (Pepcid) 20 mg PO BID [facility] Last Admin: 01/01/19 11:44 Dose: 20 mg Documented by: Fludrocortisone Acetate (Florinef) 0.1 mg PO DAILY [facility] Last Admin: 01/01/19 11:45 Dose: 0.1 mg Documented by: Heparin Sodium (Porcine) (Heparin) 5,000 unit SUB-Q Q12HR [facility] Last Admin: 01/01/19 11:45 Dose: 5,000 unit Documented by: Sodium Chloride (Nacl 0.9% 1000 Ml) 1,000 mls @ 125 mls/hr IV DIRECT [facility] Last Admin: 01/01/19 14:36 Dose: 125 mls/hr Documented by: Insulin Glargine (Lantus) 10 units SUB-Q QHS [facility] Insulin Human Lispro (Humalog) 5 unit SUB-Q AC [facility] Insulin Human Lispro (Humalog) 0 unit SUB-Q ACHS [facility]; Protocol Levetiracetam (Keppra) 500 mg PO BID [facility] Last Admin: 01/01/19 11:44 Dose: 500 mg Documented by: Levothyroxine Sodium (Synthroid) 125 mcg PO DAILY@0600 [facility] Last Admin: 01/01/19 06:09 Dose: 125 mcg Documented by: Ondansetron HCl (Zofran) 4 mg IV Q8H PRN PRN Reason: Nausea And Vomiting Potassium Phos/Sodium Phos (Phos-Nak) 1 each PO Q12HR [facility] Stop: 01/02/19 22:01 Last Admin: 01/01/19 11:45 Dose: 1 each Documented by: Sertraline HCl (Zoloft) 50 mg PO DAILY [facility] Last Admin: 01/01/19 11:45 Dose: 50 mg Documented by: Sodium Chloride (Sodium Chloride Flush Syringe 10 Ml) 10 ml IV BID [facility] Last Admin: 01/01/19 11:46 Dose: 10 ml Documented by: Sodium Chloride (Sodium Chloride Flush Syringe 10 Ml) 10 ml IV PRN PRN PRN Reason: LINE FLUSH Exam - Constitutional Vitals: Temp Pulse Resp BP Pulse Ox 98.2 F 79 16 90/64 100 01/01/19 11:30 01/01/19 11:30 01/01/19 11:30 01/01/19 11:30 01/01/19 11:30 Results - Labs CBC & Chem 7: 01/01/19 06:45 01/01/19 14:10 Labs: Laboratory Last Values WBC 6.5 K/mm3 (4.5-11.0) 01/01/19 06:45 RBC 3.29 M/mm3 (3.65-5.03) L 01/01/19 06:45 Hgb 9.0 gm/dl (10.1-14.3) L 01/01/19 06:45 Hct 27.0 % (30.3-42.9) L D 01/01/19 06:45 MCV 82 fl (79-97) 01/01/19 06:45 MCH 28 pg (28-32) 01/01/19 06:45 MCHC 34 % (30-34) 01/01/19 06:45 RDW 17.4 % (13.2-15.2) H 01/01/19 06:45 Plt Count 207 K/mm3 (140-440) 01/01/19 06:45 Lymph % (Auto) Hydrogenation Still Operator 01/01/19 06:45 [place] % (Auto) 4.7 % (0.0-7.3) 12/31/18 16:23 Eos % (Auto) 2.7 % (0.0-4.3) 12/31/18 16:23 Baso % (Auto) 1.1 % (0.0-1.8) 12/31/18 16:23 Lymph # 2.7 K/mm3 (1.2-5.4) 12/31/18 16:23 [place] # 0.3 K/mm3 (0.0-0.8) 12/31/18 16:23 Eos # 0.2 K/mm3 (0.0-0.4) 12/31/18 16:23 Baso # 0.1 K/mm3 (0.0-0.1) 12/31/18 16:23 Add Manual Diff Complete 01/01/19 06:45 Total Counted 100 01/01/19 06:45 Seg Neutrophils % 51.6 % (40.0-70.0) 12/31/18 16:23 Seg Neuts % (Manual) 37.0 % (40.0-70.0) L 01/01/19 06:45 0 % 01/01/19 06:45 58.0 % (13.4-35.0) H 01/01/19 06:45 Reactive Lymphs % (Man) 0 % 01/01/19 06:45 1.0 % (0.0-7.3) 01/01/19 06:45 4.0 % (0.0-4.3) 01/01/19 06:45 0 % (0.0-1.8) 01/01/19 06:45 0 % 01/01/19 06:45 0 % 01/01/19 06:45 0 % 01/01/19 06:45 0 % 01/01/19 06:45 Nucleated RBC % Not Reportable 01/01/19 06:45 Seg Neutrophils # 3.4 K/mm3 (1.8-7.7) 12/31/18 16:23 Seg Neutrophils # Man 2.4 K/mm3 (1.8-7.7) 01/01/19 06:45 Band Neutrophils # 0.0 K/mm3 01/01/19 06:45 3.8 K/mm3 (1.2-5.4) 01/01/19 06:45 Abs React Lymphs (Man) 0.0 K/mm3 01/01/19 06:45 0.1 K/mm3 (0.0-0.8) 01/01/19 06:45 0.3 K/mm3 (0.0-0.4) 01/01/19 06:45 0.0 K/mm3 (0.0-0.1) 01/01/19 06:45 0.0 K/mm3 01/01/19 06:45 0.0 K/mm3 01/01/19 06:45 0.0 K/mm3 01/01/19 06:45 Blast Cells # 0.0 K/mm3 01/01/19 06:45 WBC Morphology Not Reportable 01/01/19 06:45 Hypersegmented Neuts Not Reportable 01/01/19 06:45 Hyposegmented Neuts Not Reportable 01/01/19 06:45 Hypogranular Neuts Not Reportable 01/01/19 06:45 Not Reportable 01/01/19 06:45 Not Reportable 01/01/19 06:45 Not Reportable 01/01/19 06:45 Not Reportable 01/01/19 06:45 Not Reportable 01/01/19 06:45 Not Reportable 01/01/19 06:45 Consistent w auto 01/01/19 06:45 Not Reportable 01/01/19 06:45 Plt Clumps, EDTA Not Reportable 01/01/19 06:45 Not Reportable 01/01/19 06:45 Not Reportable 01/01/19 06:45 Not Reportable 01/01/19 06:45 Plt Morphology Comment Not Reportable 01/01/19 06:45 RBC Morphology Not Reportable 01/01/19 06:45 Dimorphic RBCs Not Reportable 01/01/19 06:45 Not Reportable 01/01/19 06:45 Not Reportable 01/01/19 06:45 Not Reportable 01/01/19 06:45 Few 01/01/19 06:45 Not Reportable 01/01/19 06:45 Rare 01/01/19 06:45 Not Reportable 01/01/19 06:45 Not Reportable 01/01/19 06:45 Not Reportable 01/01/19 06:45 Not Reportable 01/01/19 06:45 Not Reportable 01/01/19 06:45 Not Reportable 01/01/19 06:45 Not Reportable 01/01/19 06:45 Not Reportable 01/01/19 06:45 Not Reportable 01/01/19 06:45 Not Reportable 01/01/19 06:45 Not Reportable 01/01/19 06:45 Not Reportable 01/01/19 06:45 Not Reportable 01/01/19 06:45 Acanthocytes (Spur) Not Reportable 01/01/19 06:45 Rouleaux Not Reportable 01/01/19 06:45 Not Reportable 01/01/19 06:45 Not Reportable 01/01/19 06:45 Not Reportable 01/01/19 06:45 Not Reportable 01/01/19 06:45 Hem Pathologist Commnt No 01/01/19 06:45 VBG pH 7.397 (7.320-7.420) 12/31/18 16:23 Sodium 133 mmol/L (137-145) L 01/01/19 14:10 Potassium 4.3 mmol/L (3.6-5.0) 01/01/19 14:10 Chloride 99.5 mmol/L (98-107) 01/01/19 14:10 Carbon Dioxide 25 mmol/L (22-30) 01/01/19 14:10 13 mmol/L 01/01/19 14:10 BUN 14 mg/dL (7-17) 01/01/19 14:10 1.4 mg/dL (0.7-1.2) H 01/01/19 14:10 Estimated GFR 45 ml/min 01/01/19 14:10 10 % 01/01/19 14:10 Glucose 153 mg/dL (65-100) H 01/01/19 14:10 POC Glucose 77 (70-105) 01/01/19 11:34 Calcium 7.5 mg/dL (8.4-10.2) L 01/01/19 14:10 Phosphorus 2.40 mg/dL (2.5-4.5) L D 01/01/19 06:45 Magnesium 1.50 mg/dL (1.7-2.3) L 01/01/19 06:45 0.50 mg/dL (0.1-1.2) 12/31/18 16:23 < 0.2 mg/dL (0-0.2) 12/31/18 16:23 0.3 mg/dL 12/31/18 16:23 AST 126 units/L (5-40) H 12/31/18 16:23 ALT 93 units/L (7-56) H 12/31/18 16:23 137 units/L (35-129) H 12/31/18 16:23 < 0.010 ng/mL (0.00-0.029) 12/31/18 16:23 4.9 g/dL (6.3-8.2) L 12/31/18 16:23 3.1 g/dL (3.9-5) L 12/31/18 16:23 1.7 % 12/31/18 16:23 28 units/L (13-60) 12/31/18 16:23 HCG, Qual Negative (Negative) 12/31/18 16:23 Straw (Yellow) 12/31/18 22:00 Clear (Clear) 12/31/18 22:00 5.0 (5.0-7.0) 12/31/18 22:00 Ur Specific [place] 1.013 (1.003-1.030) 12/31/18 22:00 <15 mg/dl mg/dL (Negative) 12/31/18 22:00 >=500 mg/dL (Negative) 12/31/18 22:00 Neg mg/dL (Negative) 12/31/18 22:00 Neg (Negative) 12/31/18 22:00 Neg (Negative) 12/31/18 22:00 Neg (Negative) 12/31/18 22:00 < 2.0 mg/dL (<2.0) 12/31/18 22:00 Ur Leukocyte Esterase Neg (Negative) 12/31/18 22:00 1.0 /HPF (0.0-6.0) 12/31/18 22:00 < 1.0 /HPF (0.0-6.0) 12/31/18 22:00 U Epithel Cells (Auto) < 1.0 /HPF (0-13.0) 12/31/18 22:00 1+ /HPF (Negative) 12/31/18 22:00 Few /HPF 12/31/18 22:00 Assessment and Plan Assessment and plan: Hyperosmolar nonketotic state in Diabetes Mellitus Close monitoring IV insulin and coverage and IV Fluids Critical care time 35 minutes
[2018-12-31] MEDS: HEPARIN SUB-Q SCH ×2 (21:05→21:10)
[2018-12-31] MEDS: KEPPRA PO SCH (21:11)
[2018-12-31] MEDS: COLACE PO SCH (21:11)
[2018-12-31] MEDS: NACL 0.9% 1000 ML 1,000 ML IV SCH (21:11)
[2018-12-31] MEDS ORDERED: CORTEF PO SCH (22:00)
[2018-12-31] MEDS ORDERED: LANTUS SUB-Q SCH (22:00)
[2018-12-31] MEDS: SODIUM CHLORIDE FLUSH SYRINGE 10 ML IV SCH (22:31)
[2018-12-31] MEDS: PEPCID PO SCH (22:31)
[2018-12-31] MEDS: HumaLOG SUB-Q SCH (22:31)
[2019-01-01 01:17] LABS: Bacteria,Urine 1+ /HPF (Negative); Bilirubin,Urine NEG (Negative); Blood,Urine NEG (Negative); Color,Urine Straw (Yellow); Mucus,Urine FEW /HPF; Protein,Urine <15 mg/dL mg/dL (Negative); RBC,Urine < 1.0 /HPF (0.0-6.0); Urobilinogen,Urine < 2.0 mg/dL (<2.0)
[2019-01-01] MEDS: HumaLOG SUB-Q SCH ×5 (06:08→21:55)
[2019-01-01] MEDS: NACL 0.9% 1000 ML 1,000 ML IV SCH ×2 (06:08→14:36)
[2019-01-01] MEDS: SYNTHROID PO SCH (06:09)
[2019-01-01 07:16] LABS: Mean Corpuscular HGB Conc 34 % (30-34); Mean Corpuscular Volume 82 fl (79-97); Platelet Count 207 K/mm3 (140-440); Red Blood Count 3.29 M/mm3 (3.65-5.03); Red Cell Distribution Width 17.4 % (13.2-15.2)
[2019-01-01 07:39] LABS: Calcium 7.4 mg/dL (8.4-10.2)
--- NOTE | 2019-01-01 09:45 | Progress Note ---
Assessment and Plan Assessment and plan: --Hyperosmolar nonketotic hyperglycemia ; Blood sugars mod control A1c 12.6 in November2018 , Accu-Chek sliding scale coverage and ADA diet Long-acting insulin , adjust dose as needed --DM 1- uncontrolled HgnA1c 10.4 Accu-Chek sliding scale coverage and ADA diet long-acting insulin as needed. Diabetic education and nutrition consult --Dehydration: Admission resolved --BRANDEE-likely due to dehydration, vasomotor nephropathy Mild improvement, gentle hydration and closely monitor function avoid nephrot oxins, nephrology consult if needed --CKD2; closely monitor renal function --History of hypothyroidism; resume Synthroid and supportive care --History of seizure disorder; seizure precautions, continue Keppra Neurology consult if needed --History of [place]'s disease; stable on medications --Possible urinary tract infection; empiric antibiotics, follow cultures --Possible urinary tract infection; empiric antibiotics, follow urine cultures --DVT prophylaxis; Lovenox --Full Code status ; Monitor closely and adjust management as needed Follow cultures to rule out occult malignancy Advance Directives: No VTE prophylaxis?: Chemical Plan of care discussed with patient/family: Yes History Interval history: Patient seen and examined medical records reviewed Admitted for hyperosmolar nonketotic hyperglycemic stage History of insulin drip patient is on long-acting insulin and Accu-Cheks HbA1c 12.6 in November 2018 Patient claims competence with medications Generalized body pains, no other complaints Vital signs noted Hospitalist Physical - Constitutional Vitals: Temp Pulse Resp BP Pulse Ox 98.3 F 72 18 105/70 98 01/01/19 05:54 01/01/19 05:54 01/01/19 05:54 01/01/19 05:54 01/01/19 05:54 General appearance: Present: no acute distress, well-nourished - EENT Eyes: Present: PERRL, EOM intact - Neck Neck: Present: supple, normal ROM - Respiratory Respiratory effort: normal Respiratory: negative: rales, rhonchi, wheezing - Cardiovascular Rhythm: regular Heart Sounds: Present: S1 & S2 - Extremities Extremities: no ischemia, No edema - Abdominal General gastrointestinal: soft, non-tender, non-distended, normal bowel sounds - Integumentary Integumentary: Present: clear, warm - Psychiatric Psychiatric: appropriate mood/affect, cooperative - Neurologic Neurologic: CNII-XII intact, moves all extremities Results - Labs CBC & Chem 7: 01/01/19 06:45 01/01/19 14:10 Labs: Laboratory Last Values WBC 6.5 K/mm3 (4.5-11.0) 01/01/19 06:45 RBC 3.29 M/mm3 (3.65-5.03) L 01/01/19 06:45 Hgb 9.0 gm/dl (10.1-14.3) L 01/01/19 06:45 Hct 27.0 % (30.3-42.9) L D 01/01/19 06:45 MCV 82 fl (79-97) 01/01/19 06:45 MCH 28 pg (28-32) 01/01/19 06:45 MCHC 34 % (30-34) 01/01/19 06:45 RDW 17.4 % (13.2-15.2) H 01/01/19 06:45 Plt Count 207 K/mm3 (140-440) 01/01/19 06:45 Lymph % (Auto) Milk Vendor 01/01/19 06:45 [place] % (Auto) 4.7 % (0.0-7.3) 12/31/18 16:23 Eos % (Auto) 2.7 % (0.0-4.3) 12/31/18 16:23 Baso % (Auto) 1.1 % (0.0-1.8) 12/31/18 16:23 Lymph # 2.7 K/mm3 (1.2-5.4) 12/31/18 16:23 [place] # 0.3 K/mm3 (0.0-0.8) 12/31/18 16:23 Eos # 0.2 K/mm3 (0.0-0.4) 12/31/18 16:23 Baso # 0.1 K/mm3 (0.0-0.1) 12/31/18 16:23 Seg Neutrophils % 51.6 % (40.0-70.0) 12/31/18 16:23 Seg Neutrophils # 3.4 K/mm3 (1.8-7.7) 12/31/18 16:23 VBG pH 7.397 (7.320-7.420) 12/31/18 16:23 Sodium 133 mmol/L (137-145) L D 01/01/19 06:45 Potassium 3.9 mmol/L (3.6-5.0) 01/01/19 06:45 Chloride 100.0 mmol/L (98-107) 01/01/19 06:45 Carbon Dioxide 23 mmol/L (22-30) 01/01/19 06:45 14 mmol/L 01/01/19 06:45 BUN 17 mg/dL (7-17) 01/01/19 06:45 1.6 mg/dL (0.7-1.2) H 01/01/19 06:45 Estimated GFR 38 ml/min 01/01/19 06:45 11 % 01/01/19 06:45 Glucose 362 mg/dL (65-100) H 01/01/19 06:45 POC Glucose 271 (70-105) H 01/01/19 07:36 Calcium 7.4 mg/dL (8.4-10.2) L D 01/01/19 06:45 Phosphorus 2.40 mg/dL (2.5-4.5) L D 01/01/19 06:45 Magnesium 1.50 mg/dL (1.7-2.3) L 01/01/19 06:45 0.50 mg/dL (0.1-1.2) 12/31/18 16:23 < 0.2 mg/dL (0-0.2) 12/31/18 16:23 0.3 mg/dL 12/31/18 16:23 AST 126 units/L (5-40) H 12/31/18 16:23 ALT 93 units/L (7-56) H 12/31/18 16:23 137 units/L (35-129) H 12/31/18 16:23 < 0.010 ng/mL (0.00-0.029) 12/31/18 16:23 4.9 g/dL (6.3-8.2) L 12/31/18 16:23 3.1 g/dL (3.9-5) L 12/31/18 16:23 1.7 % 12/31/18 16:23 28 units/L (13-60) 12/31/18 16:23 HCG, Qual Negative (Negative) 12/31/18 16:23 Straw (Yellow) 12/31/18 22:00 Clear (Clear) 12/31/18 22:00 5.0 (5.0-7.0) 12/31/18 22:00 Ur Specific [place] 1.013 (1.003-1.030) 12/31/18 22:00 <15 mg/dl mg/dL (Negative) 12/31/18 22:00 >=500 mg/dL (Negative) 12/31/18 22:00 Neg mg/dL (Negative) 12/31/18 22:00 Neg (Negative) 12/31/18 22:00 Neg (Negative) 12/31/18 22:00 Neg (Negative) 12/31/18 22:00 < 2.0 mg/dL (<2.0) 12/31/18 22:00 Ur Leukocyte Esterase Neg (Negative) 12/31/18 22:00 1.0 /HPF (0.0-6.0) 12/31/18 22:00 < 1.0 /HPF (0.0-6.0) 12/31/18 22:00 U Epithel Cells (Auto) < 1.0 /HPF (0-13.0) 12/31/18 22:00 1+ /HPF (Negative) 12/31/18 22:00 Few /HPF 12/31/18 22:00 Active Medications - Current Medications Current Medications: Generic Name Dose Route Start Last Admin Trade Name Freq PRN Reason Stop Dose Admin Acetaminophen 650 mg 12/31/18 19:57 Tylenol PO Q4H PRN Pain MILD(1-3)/Fever >100.5/STEWARD Dextrose 50 ml 12/31/18 19:57 D50w (25gm) Syringe IV PRN PRN Hypoglycemia Docusate Sodium 100 mg 12/31/18 22:00 12/31/18 21:11 Colace PO 100 mg BID MARINO Administration Famotidine 20 mg 12/31/18 22:00 12/31/18 22:31 Pepcid PO 20 mg BID MARINO Administration Fludrocortisone Acetate 0.1 mg 01/01/19 10:00 Florinef PO DAILY MARINO Heparin Sodium (Porcine) 5,000 unit 12/31/18 22:00 12/31/18 21:10 Heparin SUB-Q Not Given Q12HR MARINO Sodium Chloride 1,000 mls @ 125 mls/hr 12/31/18 20:00 01/01/19 06:08 Nacl 0.9% 1000 Ml IV 125 mls/hr DIRECT MARINO Administration Magnesium Sulfate 2 gm in 50 mls @ 25 mls/hr 01/01/19 09:40 Magnesium Sulfate 2gm/50ml IV 01/01/19 11:39 ONCE ONE Insulin Glargine 10 units 01/01/19 22:00 Lantus SUB-Q QHS MARINO Insulin Human Lispro 0 unit 01/01/19 06:00 01/01/19 06:08 Humalog SUB-Q 8 unit Q6HR MARINO Administration Protocol Insulin Human Lispro 8 unit 01/01/19 11:30 Humalog SUB-Q AC MARINO Levetiracetam 500 mg 12/31/18 22:00 12/31/18 21:11 Keppra PO 500 mg BID MARINO Administration Levothyroxine Sodium 125 mcg 01/01/19 06:00 01/01/19 06:09 Synthroid PO 125 mcg DAILY@0600 MARINO Administration Ondansetron HCl 4 mg 12/31/18 19:57 Zofran IV Q8H PRN Nausea And Vomiting Potassium Phos/Sodium Phos 1 each 01/01/19 10:00 Phos-Nak PO 01/02/19 22:01 Q12HR MARINO Sertraline HCl 50 mg 01/01/19 10:00 Zoloft PO DAILY MARINO Sodium Chloride 10 ml 12/31/18 22:00 12/31/18 22:31 Sodium Chloride Flush Syringe 10 Ml IV 10 ml BID MARINO Administration Sodium Chloride 10 ml 12/31/18 19:57 Sodium Chloride Flush Syringe 10 Ml IV PRN PRN LINE FLUSH
[2019-01-01] MEDS ORDERED: MAGNESIUM SULFATE 2GM/50ML 2 GM/50 ML BAG IV ONE (10:00)
[2019-01-01 10:16] LABS: Anisocytosis Few; Basophils % (Manual) 0 % (0.0-1.8); Macrocytosis Rare; Platelet Estimate Consistent w Auto; Total Cells Counted 100
[2019-01-01] MEDS ORDERED: HumaLOG SUB-Q SCH ×2 (11:30→16:30)
[2019-01-01] MEDS: PEPCID PO SCH ×2 (11:44→21:51)
[2019-01-01] MEDS: KEPPRA PO SCH ×2 (11:44→21:51)
[2019-01-01] MEDS: ZOLOFT PO SCH (11:45)
[2019-01-01] MEDS: FLORINEF PO SCH (11:45)
[2019-01-01] MEDS: PHOS-NAK PO SCH ×2 (11:45→21:51)
[2019-01-01] MEDS: COLACE PO SCH ×2 (11:45→21:56)
[2019-01-01] MEDS: HEPARIN SUB-Q SCH ×3 (11:45→21:59)
[2019-01-01] MEDS: SODIUM CHLORIDE FLUSH SYRINGE 10 ML IV SCH ×2 (11:46→21:59)
[2019-01-01 15:12] LABS: Calcium 7.5 mg/dL (8.4-10.2)
[2019-01-01] MEDS ORDERED: LANTUS SUB-Q SCH (22:00)
[2019-01-02] MEDS: SYNTHROID PO SCH (05:38)
[2019-01-02] MEDS: D50W (25GM) Syringe IV PRN ×2 (05:38→15:00)
[2019-01-02 06:18] LABS: Hematocrit 28.7 % (30.3-42.9); Hemoglobin 9.6 gm/dl (10.1-14.3); Mean Corpuscular HGB Conc 33 % (30-34); Mean Corpuscular Volume 82 fl (79-97); Platelet Count 264 K/mm3 (140-440); Red Blood Count 3.49 M/mm3 (3.65-5.03); Red Cell Distribution Width 17.5 % (13.2-15.2)
[2019-01-02 07:07] LABS: Albumin 3.2 g/dL (3.9-5); Calcium 7.8 mg/dL (8.4-10.2)
[2019-01-02] MEDS ORDERED: K-DUR PO NR (08:01)
[2019-01-02] MEDS: NACL 0.9% 1000 ML 1,000 ML IV SCH ×2 (08:41→18:15)
[2019-01-02] MEDS: HumaLOG SUB-Q SCH ×2 (08:43→11:30)
[2019-01-02] MEDS: PEPCID PO SCH ×2 (09:22→21:11)
[2019-01-02] MEDS: SODIUM CHLORIDE FLUSH SYRINGE 10 ML IV SCH ×2 (09:23→21:11)
[2019-01-02] MEDS: FLORINEF PO SCH (09:23)
[2019-01-02] MEDS: KEPPRA PO SCH ×2 (09:23→21:11)
[2019-01-02] MEDS: HEPARIN SUB-Q SCH ×2 (09:24→21:11)
[2019-01-02] MEDS: PHOS-NAK PO SCH ×2 (09:24→21:10)
[2019-01-02] MEDS: ZOLOFT PO SCH (09:24)
[2019-01-02 10:11] LABS: Anisocytosis 1+; Total Cells Counted 100
[2019-01-02 10:12] LABS: Platelet Estimate Consistent w Auto
--- NOTE | 2019-01-02 14:45 | Progress Note ---
Assessment and Plan Assessment and plan: --Episodes of hypoglycemia; Long-acting dose of insulin adjusted, D50 as needed --Hyperosmolar nonketotic hyperglycemia ; and on admission Blood sugars mod control A1c 12.6 in November2018 , Accu-Chek sliding scale coverage and ADA diet Long-acting insulin , adjust dose as needed --DM 1- uncontrolled HgnA1c 10.4 Accu-Chek sliding scale coverage and ADA diet long-acting insulin as needed. 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 --Possible urinary tract infection; empiric antibiotics, follow cultures --Possible urinary tract infection; empiric antibiotics, follow urine cultures --DVT prophylaxis; Lovenox --Full Code status ; Monitor closely and adjust management as needed Follow cultures to rule out occult malignancy Advance Directives: No VTE prophylaxis?: Patient refused Plan of care discussed with patient/family: Yes History Interval history: Patient seen and examined medical records reviewed The patient had an episode of hypoglycemia this morning Long-acting insulin dosages adjusted Patient feels better no new complaints vital signs reviewed Patient denies chest pain shortness of breath Denies headache dizziness Vital signs noted Hospitalist Physical - Constitutional Vitals: Temp Pulse Resp BP Pulse Ox 98.5 F 82 15 110/83 100 01/02/19 11:58 01/02/19 11:58 01/02/19 11:58 01/02/19 11:58 01/02/19 11:58 General appearance: Present: no acute distress, well-nourished - EENT Eyes: Present: PERRL, EOM intact - Neck Neck: Present: supple, normal ROM - Respiratory Respiratory effort: normal Respiratory: bilateral: diminished, negative: rales, rhonchi, wheezing - Cardiovascular Rhythm: regular Heart Sounds: Present: S1 & S2 - Extremities Extremities: no ischemia, No edema - Abdominal General gastrointestinal: soft, non-tender, non-distended, normal bowel sounds - Integumentary Integumentary: Present: clear, warm - Psychiatric Psychiatric: appropriate mood/affect, cooperative - Neurologic Neurologic: CNII-XII intact, moves all extremities Results - Labs CBC & Chem 7: 01/02/19 05:42 01/02/19 05:42 Labs: Laboratory Last Values WBC 7.8 K/mm3 (4.5-11.0) 01/02/19 05:42 RBC 3.49 M/mm3 (3.65-5.03) L 01/02/19 05:42 Hgb 9.6 gm/dl (10.1-14.3) L 01/02/19 05:42 Hct 28.7 % (30.3-42.9) L 01/02/19 05:42 MCV 82 fl (79-97) 01/02/19 05:42 MCH 27 pg (28-32) L 01/02/19 05:42 MCHC 33 % (30-34) 01/02/19 05:42 RDW 17.5 % (13.2-15.2) H 01/02/19 05:42 Plt Count 264 K/mm3 (140-440) 01/02/19 05:42 Lymph % (Auto) Supervisor Tunnel Heading 01/02/19 05:42 Amador % (Auto) 4.7 % (0.0-7.3) 12/31/18 16:23 Eos % (Auto) 2.7 % (0.0-4.3) 12/31/18 16:23 Baso % (Auto) 1.1 % (0.0-1.8) 12/31/18 16:23 Lymph # Supervisor Tunnel Heading 01/02/19 05:42 Amador # 0.3 K/mm3 (0.0-0.8) 12/31/18 16:23 Eos # 0.2 K/mm3 (0.0-0.4) 12/31/18 16:23 Baso # 0.1 K/mm3 (0.0-0.1) 12/31/18 16:23 Add Manual Diff Complete 01/02/19 05:42 Total Counted 100 01/02/19 05:42 Seg Neutrophils % Supervisor [employer]ading 01/02/19 05:42 Seg Neuts % (Manual) 30.0 % (40.0-70.0) L 01/02/19 05:42 0 % 01/02/19 05:42 63.0 % (13.4-35.0) H 01/02/19 05:42 Reactive Lymphs % (Man) 3.0 % 01/02/19 05:42 1.0 % (0.0-7.3) 01/02/19 05:42 1.0 % (0.0-4.3) 01/02/19 05:42 2.0 % (0.0-1.8) H 01/02/19 05:42 0 % 01/02/19 05:42 0 % 01/02/19 05:42 0 % 01/02/19 05:42 0 % 01/02/19 05:42 Nucleated RBC % Not Reportable 01/02/19 05:42 Seg Neutrophils # 3.4 K/mm3 (1.8-7.7) 12/31/18 16:23 Seg Neutrophils # Man 2.3 K/mm3 (1.8-7.7) 01/02/19 05:42 Band Neutrophils # 0.0 K/mm3 01/02/19 05:42 4.9 K/mm3 (1.2-5.4) 01/02/19 05:42 Abs React Lymphs (Man) 0.2 K/mm3 01/02/19 05:42 0.1 K/mm3 (0.0-0.8) 01/02/19 05:42 0.1 K/mm3 (0.0-0.4) 01/02/19 05:42 0.2 K/mm3 (0.0-0.1) H 01/02/19 05:42 0.0 K/mm3 01/02/19 05:42 0.0 K/mm3 01/02/19 05:42 0.0 K/mm3 01/02/19 05:42 Blast Cells # 0.0 K/mm3 01/02/19 05:42 WBC Morphology Not Reportable 01/02/19 05:42 Hypersegmented Neuts Not Reportable 01/02/19 05:42 Hyposegmented Neuts Not Reportable 01/02/19 05:42 Hypogranular Neuts Not Reportable 01/02/19 05:42 Not Reportable 01/02/19 05:42 Not Reportable 01/02/19 05:42 Not Reportable 01/02/19 05:42 Not Reportable 01/02/19 05:42 Not Reportable 01/02/19 05:42 Not Reportable 01/02/19 05:42 Consistent w auto 01/02/19 05:42 Not Reportable 01/02/19 05:42 Plt Clumps, EDTA Not Reportable 01/02/19 05:42 Not Reportable 01/02/19 05:42 Not Reportable 01/02/19 05:42 Not Reportable 01/02/19 05:42 Plt Morphology Comment Not Reportable 01/02/19 05:42 RBC Morphology Not Reportable 01/02/19 05:42 Dimorphic RBCs Not Reportable 01/02/19 05:42 Not Reportable 01/02/19 05:42 Not Reportable 01/02/19 05:42 Not Reportable 01/02/19 05:42 1+ 01/02/19 05:42 Not Reportable 01/02/19 05:42 Not Reportable 01/02/19 05:42 Not Reportable 01/02/19 05:42 Not Reportable 01/02/19 05:42 Not Reportable 01/02/19 05:42 Not Reportable 01/02/19 05:42 Not Reportable 01/02/19 05:42 Not Reportable 01/02/19 05:42 Not Reportable 01/02/19 05:42 Not Reportable 01/02/19 05:42 Not Reportable 01/02/19 05:42 Not Reportable 01/02/19 05:42 Not Reportable 01/02/19 05:42 Not Reportable 01/02/19 05:42 Not Reportable 01/02/19 05:42 Acanthocytes (Spur) Not Reportable 01/02/19 05:42 Rouleaux Not Reportable 01/02/19 05:42 Not Reportable 01/02/19 05:42 Not Reportable 01/02/19 05:42 Not Reportable 01/02/19 05:42 Not Reportable 01/02/19 05:42 Hem Pathologist Commnt No 01/02/19 05:42 VBG pH 7.397 (7.320-7.420) 12/31/18 16:23 Sodium 141 mmol/L (137-145) D 01/02/19 05:42 Potassium 3.5 mmol/L (3.6-5.0) L 01/02/19 05:42 Chloride 105.7 mmol/L (98-107) 01/02/19 05:42 Carbon Dioxide 26 mmol/L (22-30) 01/02/19 05:42 13 mmol/L 01/02/19 05:42 BUN 12 mg/dL (7-17) 01/02/19 05:42 1.4 mg/dL (0.7-1.2) H 01/02/19 05:42 Estimated GFR 45 ml/min 01/02/19 05:42 9 % 01/02/19 05:42 Glucose 35 mg/dL (65-100) L* 01/02/19 05:42 POC Glucose < 40 (70-105) L 01/02/19 14:31 Calcium 7.8 mg/dL (8.4-10.2) L 01/02/19 05:42 Phosphorus 2.40 mg/dL (2.5-4.5) L D 01/01/19 06:45 Magnesium 2.20 mg/dL (1.7-2.3) 01/02/19 05:42 0.20 mg/dL (0.1-1.2) 01/02/19 05:42 < 0.2 mg/dL (0-0.2) 12/31/18 16:23 0.3 mg/dL 12/31/18 16:23 AST 98 units/L (5-40) H 01/02/19 05:42 ALT 73 units/L (7-56) H 01/02/19 05:42 110 units/L (35-129) 01/02/19 05:42 < 0.010 ng/mL (0.00-0.029) 12/31/18 16:23 5.6 g/dL (6.3-8.2) L 01/02/19 05:42 3.2 g/dL (3.9-5) L 01/02/19 05:42 1.3 % 01/02/19 05:42 28 units/L (13-60) 12/31/18 16:23 HCG, Qual Negative (Negative) 12/31/18 16:23 Straw (Yellow) 12/31/18 22:00 Clear (Clear) 12/31/18 22:00 5.0 (5.0-7.0) 12/31/18 22:00 Ur Specific [place] 1.013 (1.003-1.030) 12/31/18 22:00 <15 mg/dl mg/dL (Negative) 12/31/18 22:00 >=500 mg/dL (Negative) 12/31/18 22:00 Neg mg/dL (Negative) 12/31/18 22:00 Neg (Negative) 12/31/18 22:00 Neg (Negative) 12/31/18 22:00 Neg (Negative) 12/31/18 22:00 < 2.0 mg/dL (<2.0) 12/31/18 22:00 Ur Leukocyte Esterase Neg (Negative) 12/31/18 22:00 1.0 /HPF (0.0-6.0) 12/31/18 22:00 < 1.0 /HPF (0.0-6.0) 12/31/18 22:00 U Epithel Cells (Auto) < 1.0 /HPF (0-13.0) 12/31/18 22:00 1+ /HPF (Negative) 12/31/18 22:00 Few /HPF 12/31/18 22:00 Active Medications - Current Medications Current Medications: Generic Name Dose Route Start Last Admin Trade Name Freq PRN Reason Stop Dose Admin Acetaminophen 650 mg 12/31/18 19:57 Tylenol PO Q4H PRN Pain MILD(1-3)/Fever >100.5/STEWARD Dextrose 50 ml 12/31/18 19:57 01/02/19 05:38 D50w (25gm) Syringe IV 50 ml PRN PRN Administration Hypoglycemia Famotidine 20 mg 12/31/18 22:00 01/02/19 09:22 Pepcid PO 20 mg BID MARINO Administration Fludrocortisone Acetate 0.1 mg 01/01/19 10:00 01/02/19 09:23 Florinef PO 0.1 mg DAILY MARINO Administration Heparin Sodium (Porcine) 5,000 unit 12/31/18 22:00 01/02/19 09:24 Heparin SUB-Q Not Given Q12HR MARINO Sodium Chloride 1,000 mls @ 125 mls/hr 12/31/18 20:00 01/02/19 08:41 Nacl 0.9% 1000 Ml IV 125 mls/hr DIRECT MARINO Administration Insulin Human Isoph/Insulin Regular 5 unit 07/05/19 09:00 Humulin 70/30 SUB-Q BIDDIAB MARINO Insulin Human Lispro 0 unit 01/01/19 16:30 01/02/19 08:43 Humalog SUB-Q 3 unit ACHS MARINO Administration Protocol Levetiracetam 500 mg 12/31/18 22:00 01/02/19 09:23 Keppra PO 500 mg BID MARINO Administration Levothyroxine Sodium 125 mcg 01/01/19 06:00 01/02/19 05:38 Synthroid PO 125 mcg DAILY@0600 MARINO Administration Ondansetron HCl 4 mg 12/31/18 19:57 Zofran IV Q8H PRN Nausea And Vomiting Potassium Phos/Sodium Phos 1 each 01/01/19 10:00 01/02/19 09:24 Phos-Nak PO 01/02/19 22:01 1 each Q12HR MARINO Administration Sertraline HCl 50 mg 01/01/19 10:00 01/02/19 09:24 Zoloft PO 50 mg DAILY MARINO Administration Sodium Chloride 10 ml 12/31/18 22:00 01/02/19 09:23 Sodium Chloride Flush Syringe 10 Ml IV 10 ml BID MARINO Administration Sodium Chloride 10 ml 12/31/18 19:57 Sodium Chloride Flush Syringe 10 Ml IV PRN PRN LINE FLUSH Nutrition/Malnutrition Assess - Dietary Evaluation Nutrition/Malnutrition Findings: Nutrition Notes Start: 01/01/19 16:18 Freq: Status: Active Protocol: Document 01/01/19 16:18 RM (Rec: 01/01/19 16:20 RM [id number]) Nutrition Notes Need for Assessment generated from: MD Order Initial or Follow up Brief Note Current Diagnosis Diabetes Labs/Tests BG 362 Subjective/Other Information Consulted for DM diet education. Pt in bathroom at time of visit. Nutrition Intervention Follow-Up By: 01/02/19 Additional Comments Follow for DM diet education
[2019-01-02] MEDS ORDERED: PERCOCET 5/325 PO PRN (14:52)
[2019-01-03] MEDS: HumaLOG SUB-Q SCH ×3 (00:22→13:10)
[2019-01-03] MEDS: NACL 0.9% 1000 ML 1,000 ML IV SCH ×2 (02:21→10:46)
[2019-01-03] MEDS: D50W (25GM) Syringe IV PRN (05:42)
[2019-01-03] MEDS: SYNTHROID PO SCH (05:45)
[2019-01-03] MEDS ORDERED: D50W (25GM) Syringe IV PRN (06:06)
[2019-01-03 06:42] LABS: Calcium 7.1 mg/dL (8.4-10.2)
[2019-01-03] MEDS: ZOLOFT PO SCH (10:32)
[2019-01-03] MEDS: FLORINEF PO SCH (10:32)
[2019-01-03] MEDS: KEPPRA PO SCH (10:32)
[2019-01-03] MEDS: PEPCID PO SCH (10:32)
[2019-01-03] MEDS: SODIUM CHLORIDE FLUSH SYRINGE 10 ML IV SCH (10:33)
[2019-01-03] MEDS: HEPARIN SUB-Q SCH (10:35)
--- NOTE | 2019-01-03 12:50 | Discharge Summary ---
Providers - Providers Date of Admission: 12/31/18 19:25 Date of discharge: 01/03/19 Attending physician: ALONSO ORLANDO 12/31/18 20:01 Consult to Dietitian/Nutrition [CONS] Routine Physician Instructions: Reason For Exam: Reason for Consult: Diet education [facility] Reason for admission: hyperosmolar nonketotic hyperglycemia Condition: Stable Pertinent studies: CT abdomen and pelvis without contrast; no urinary tract calculi or hydronephrosis No acute intermittent process of bowel obstruction Old T12 compression fracture Hospital course: 28-year-old female with history of uncontrolled insulin-dependent diabetes, CKD2, seizure disorder, hypothyroidism, Wase[place]'s disease who presents to [facility] ED with complaints of generalized abdominal pain, nausea, vomiting, diarrhea. Patient states that for the past 2 days she's been experiencing generalized abdominal pain accompanied by nausea vomiting and diarrhea. During this time she is continue to check her blood sugars and noticed that they have been elevated. She thought the elevation in blood sugar was due to a stressful event that occurred a few days ago. Her symptoms progressed and her blood sugars remained elevated even after taking her insulin, initial evaluation was consistent with hyperosmolar nonketotic hyperglycemia, hemoglobin A1c of 12.6, patient was admitted symptomatically managed blood pressures that sugars closely monitored medications optimized Patient's symptoms significantly improved today's comfortable no new complaints vital signs stable Physical examination unremarkable, patient strongly advised to comply with medic ations and diet Advised to see paper slitter for better control of her blood sugars Patient verbalized understanding Hemodynamically and clinically stable at discharge Discharge diagnosis; --Hyperosmolar nonketotic hyperglycemia ; and on admission Blood sugars mod control A1c 12.6 in November2018 , Accu-Chek sliding scale coverage and ADA diet Long-acting insulin , adjust dose as needed --DM 1- uncontrolled HgnA1c 10.4 Accu-Chek sliding scale coverage and ADA diet long-acting insulin as needed. 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 --Possible urinary tract infection; empiric antibiotics, follow cultures --Possible urinary tract infection; empiric antibiotics, follow urine cultures --DVT prophylaxis; Lovenox --Full Code status ; Monitor closely and adjust management as needed Disposition: DC-01 TO HOME OR SELFCARE Time spent for discharge: 32 min Core Measure Documentation - Palliative Care Palliative Care/ Comfort Measures: Not Applicable - Core Measures Any of the following diagnoses?: none Exam - Constitutional Vitals: Temp Pulse Resp BP Pulse Ox 97.4 F L 71 18 87/56 97 01/03/19 05:28 01/03/19 05:59 01/03/19 05:59 01/03/19 05:59 01/03/19 05:59 General appearance: Present: no acute distress, well-nourished - EENT Eyes: Present: PERRL, EOM intact - Neck Neck: Present: supple, normal ROM - Respiratory Respiratory effort: normal Respiratory: bilateral: diminished, negative: rales, rhonchi, wheezing - Cardiovascular Rhythm: regular Heart Sounds: Present: S1 & S2 - Extremities Extremities: no ischemia, No edema - Abdominal General gastrointestinal: Present: soft, non-distended, normal bowel sounds - Integumentary Integumentary: Present: clear, warm - Musculoskeletal Musculoskeletal: strength equal bilaterally - Psychiatric Psychiatric: appropriate mood/affect, cooperative - Neurologic Neurologic: CNII-XII intact, moves all extremities Plan Activity: advance as tolerated, fall precautions Diet: diabetic Additional Instructions: Avoid hypoglycemia. Advise to comply with medications and diet Follow up with: ZAINA LONDONO MD [Primary Care Provider] - 3-5 Days
[2019-01-03 13:12] VITALS: BP 96/65
[2019-01-03] MEDS ORDERED: TRIPLE ANTIBIOTIC TP ONE (13:26)
[2019-01-03] MEDS ORDERED: FLUSH HEPARIN IV ONE (15:00)
== END 2019-01-03 14:50 | disposition home or self-care (01) | DRG 640 ==
LOC: ED 15:48 → 3A 19:25
PROVIDERS: ADMIT Internal Medicine; ATTEND Internal Medicine
DX: E86.0 Dehydration (principal); N17.0 Acute kidney failure with tubular necrosis; E87.1 Hypo-osmolality and hyponatremia; N39.0 Urinary tract infection, site not specified; E27.1 Primary adrenocortical insufficiency; E10.65 Type 1 diabetes mellitus with hyperglycemia; E10.69 Type 1 diabetes mellitus with other specified complication; N18.2 Chronic kidney disease, stage 2 (mild); G40.909 Epilepsy, unspecified, not intractable, without status epilepticus; E10.22 Type 1 diabetes mellitus with diabetic chronic kidney disease; Z90.49 Acquired absence of other specified parts of digestive tract; Z88.0 Allergy status to penicillin; Z88.8 Allergy status to other drugs, medicaments and biological substances; Z88.1 Allergy status to other antibiotic agents; Z79.4 Long term (current) use of insulin; E10.649 Type 1 diabetes mellitus with hypoglycemia without coma
CPT/HCPCS: 36415; 74176; 80048; 80053; 80076; 81001; 82805; 82947; 82962; 83690; 83735; 84100; 84484; 84703; 85007; 85025; 87040; 87086; 87116; 93005; 93010; 99285; G0378; A6250; J1642; J1644; J1815; J2405; J3475; J7030

== ENCOUNTER 2019-01-09 13:15 | Emergency (ER) | payer MEDICAID ==
[2019-01-09] MEDS ORDERED: NACL 0.9% 1000 ML 1,000 ML ONE (13:43)
[2019-01-09] MEDS ORDERED: NACL 0.9% 1000 ML 1,000 ML IV ONE ×3 (14:07→16:28)
[2019-01-09 14:41] LABS: Basophils # (Auto) 0.1 K/mm3 (0.0-0.1); Basophils % (Auto) 1.3 % (0.0-1.8); Eosinophils # (Auto) 0.2 K/mm3 (0.0-0.4); Eosinophils % (Auto) 4.5 % (0.0-4.3); Hemoglobin 8.8 gm/dl (10.1-14.3); Lymphocytes # (Auto) 2.7 K/mm3 (1.2-5.4); Lymphocytes % (Auto) 53.7 % (13.4-35.0); Mean Corpuscular HGB Conc 34 % (30-34); Mean Corpuscular Volume 81 fl (79-97); Monocytes # (Auto) 0.3 K/mm3 (0.0-0.8); Monocytes % (Auto) 5.2 % (0.0-7.3); Platelet Count 210 K/mm3 (140-440); Red Blood Count 3.22 M/mm3 (3.65-5.03); Red Cell Distribution Width 18.1 % (13.2-15.2)
[2019-01-09] MEDS ORDERED: HumuLIN R IV ONE (14:58)
[2019-01-09 15:02] LABS: Albumin 3.2 g/dL (3.9-5); Calcium 8.4 mg/dL (8.4-10.2)
[2019-01-09 15:09] LABS: Free T4 (Free Thyroxine) 0.44 ng/dL (0.76-1.46)
[2019-01-09] MEDS ORDERED: K-DUR PO ONE (15:17)
[2019-01-09] MEDS ORDERED: ZOFRAN IV ONE (15:17)
--- NOTE | 2019-01-09 16:36 | Emergency Department Report ---
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 Patient is compliant with her insulin and her hydrocortisone. She was just discharged [address] admission for hyperosmolar nonketotic hyperglycemia, acute renal specific due to dehydration, and possible UTI placed on antibiotics. Patient denies any pain, nausea, vomiting, diarrhea, shortness of breath, dysuria, cough, fever, or any infectious symptoms. She states she lives in a senior living. - Related Data Home Medications Medication Instructions Recorded Confirmed Last Taken Levothyroxine Sodium [Synthroid] 125 mcg PO DAILY 09/23/18 12/25/18 11/18/18 10:01 Sertraline [Zoloft] 50 mg PO DAILY 12/10/18 12/25/18 Unknown Previous Rx's Medication Instructions Recorded Last Taken Type levETIRAcetam [Keppra TAB] 500 mg PO BID #60 tablet 10/26/18 11/16/18 09:00 Rx Famotidine [Pepcid] 20 mg PO BID #30 tablet 12/14/18 Unknown Rx Fludrocortisone [Florinef] 0.1 mg PO DAILY #30 tablet 12/14/18 Unknown Rx Hydrocortisone [Cortef TAB] 10 mg PO BID #60 tablet 12/14/18 Unknown Rx Insulin NPH/Regular [NovoLIN 70/30] 5 unit SQ BIDDIAB #10 ml 12/23/18 Unknown Rx Ondansetron (Nf) [Zofran TAB] 8 mg PO Q8HR PRN #14 tablet 12/23/18 Unknown Rx Acetaminophen [Non-Aspirin Extra 500 mg PO Q6HR PRN #30 tablet 12/26/18 Unknown Rx Strength] Selena Root [Selena] 250 mg PO QID PRN #30 capsule 12/26/18 Unknown Rx Potassium Chloride [K-Dur] 20 meq PO QDAY #3 tablet 01/09/19 Unknown Rx Allergies Allergy/AdvReac Type Severity Reaction Status Date / Time Penicillins Allergy Angioedema Verified 12/31/18 16:01 vortioxetine Allergy Unknown Verified 12/31/18 16:01 [From Trintellix] ziprasidone [From Geodon] Allergy Angioedema Verified 12/31/18 16:01 vancomycin AdvReac Itching Verified 12/31/18 16:01 ED Review of Systems ROS: Stated complaint: HBP Other details as noted in HPI Comment: All other systems reviewed and negative ED Past Medical Hx - Past Medical History Previous Medical History?: Yes Hx Congestive Heart Failure: No Hx Diabetes: Yes Hx Renal Disease: Yes (Stage 2) Hx Seizures: Yes Hx Asthma: No Hx COPD: No Additional medical history: hypotension, hypothyroidism, Dante's disease - Surgical History Hx Cholecystectomy: Yes Hx Appendectomy: Yes Additional Surgical History: 4. port right chest wall - Social History Smoking Status: Never Smoker Substance Use Type: None - Medications Home Medications: Home Medications Medication Instructions Recorded Confirmed Last Taken Type Levothyroxine Sodium [Synthroid] 125 mcg PO DAILY 09/23/18 12/25/18 11/18/18 10:01 History levETIRAcetam [Keppra TAB] 500 mg PO BID #60 tablet 10/26/18 12/25/18 11/16/18 09:00 Rx Sertraline [Zoloft] 50 mg PO DAILY 12/10/18 12/25/18 Unknown History Famotidine [Pepcid] 20 mg PO BID #30 tablet 12/14/18 12/25/18 Unknown Rx Fludrocortisone [Florinef] 0.1 mg PO DAILY #30 tablet 12/14/18 12/25/18 Unknown Rx Hydrocortisone [Cortef TAB] 10 mg PO BID #60 tablet 12/14/18 12/25/18 Unknown Rx Insulin NPH/Regular [NovoLIN 70/30] 5 unit SQ BIDDIAB #10 ml 12/23/18 12/25/18 Unknown Rx Ondansetron (Nf) [Zofran TAB] 8 mg PO Q8HR PRN #14 tablet 12/23/18 12/25/18 Unknown Rx Acetaminophen [Non-Aspirin Extra 500 mg PO Q6HR PRN #30 tablet 12/26/18 Unknown Rx Strength] Selena Root [Selena] 250 mg PO QID PRN #30 capsule 12/26/18 Unknown Rx Potassium Chloride [K-Dur] 20 meq PO QDAY #3 tablet 01/09/19 Unknown Rx ED Physical Exam - General Limitations: No Limitations - Other Other exam information: General: No limitations, patient is alert in no acute distress Head exam: Atraumatic, normocephalic Eyes exam: Normal appearance, pupils equal reactive to light, extraocular movements intact ENT: Moist mucous membrane Neck exam: Normal inspection, full range of motion, no meningismus nontender Respiratory exam: Clear to auscultation bilateral, no wheezes, rales, crackles Cardiovascular: Normal rate and rhythm, normal heart sounds Abdomen: Soft, nondistended, and nontender, with normal bowel sounds, no rebo und, or guarding Extremity: Full range of motion normal inspection no deformity Back: Normal Inspection, full range of motion, no tenderness Neurologic: Alert, oriented x3, cranial nerves intact, no motor or sensory deficit Psychiatric: normal affect, normal mood Skin: Warm, dry, intact ED Course Vital Signs 01/09/19 01/09/19 01/09/19 13:49 15:10 16:23 Temperature 98.1 F Pulse Rate 88 71 74 Respiratory 16 16 16 Rate Blood Pressure 72/33 Blood Pressure 86/56 126/88 [Left] O2 Sat by Pulse 99 96 100 Oximetry 01/09/19 18:20 Temperature Pulse Rate 84 Respiratory 16 Rate Blood Pressure Blood Pressure 104/77 [Left] O2 Sat by Pulse 100 Oximetry ED Medical Decision Making - Lab Data Result diagrams: 01/09/19 14:24 01/09/19 14:24 Lab Results 01/09/19 01/09/19 01/09/19 Range/Units 13:52 14:24 14:24 WBC 5.1 (4.5-11.0) K/mm3 RBC 3.22 L (3.65-5.03) M/mm3 Hgb 8.8 L (10.1-14.3) gm/dl Hct 26.0 L (30.3-42.9) % MCV 81 (79-97) fl MCH 27 L (28-32) pg MCHC 34 (30-34) % RDW 18.1 H (13.2-15.2) % Plt Count 210 (140-440) K/mm3 Lymph % (Auto) 53.7 H (13.4-35.0) % [place] % (Auto) 5.2 (0.0-7.3) % Eos % (Auto) 4.5 H (0.0-4.3) % Baso % (Auto) 1.3 (0.0-1.8) % Lymph # 2.7 (1.2-5.4) K/mm3 [place] # 0.3 (0.0-0.8) K/mm3 Eos # 0.2 (0.0-0.4) K/mm3 Baso # 0.1 (0.0-0.1) K/mm3 Seg Neutrophils % 35.3 L (40.0-70.0) % Seg Neutrophils # 1.8 (1.8-7.7) K/mm3 VBG pH (7.320-7.420) Sodium 134 L (137-145) mmol/L Potassium 3.2 L (3.6-5.0) mmol/L Chloride 95.6 L (98-107) mmol/L Carbon Dioxide 27 (22-30) mmol/L Anion Gap 15 mmol/L BUN 16 (7-17) mg/dL Creatinine 1.4 H (0.7-1.2) mg/dL Estimated GFR 45 ml/min BUN/Creatinine Ratio 11 % Glucose 270 H (65-100) mg/dL POC Glucose 371 H (70-105) Calcium 8.4 (8.4-10.2) mg/dL Total Bilirubin 0.50 (0.1-1.2) mg/dL AST 251 H (5-40) units/L ALT 116 H (7-56) units/L Alkaline Phosphatase 127 (35-129) units/L Total Protein 5.5 L (6.3-8.2) g/dL Albumin 3.2 L (3.9-5) g/dL Albumin/Globulin Ratio 1.4 % TSH (0.270-4.200) mlU/mL Free T4 (0.76-1.46) ng/dL HCG, Qual (Negative) Urine Color (Yellow) Urine Turbidity (Clear) Urine pH (5.0-7.0) Ur Specific [place] (1.003-1.030) Urine Protein (Negative) mg/dL Urine Glucose (UA) (Negative) mg/dL Urine Ketones (Negative) mg/dL Urine Blood (Negative) Urine Nitrite (Negative) Urine Bilirubin (Negative) Urine Urobilinogen (<2.0) mg/dL Ur Leukocyte Esterase (Negative) Urine WBC (Auto) (0.0-6.0) /HPF Urine RBC (Auto) (0.0-6.0) /HPF U Epithel Cells (Auto) (0-13.0) /HPF Urine Mucus /HPF 01/09/19 01/09/19 01/09/19 Range/Units 14:24 14:24 14:24 WBC (4.5-11.0) K/mm3 RBC (3.65-5.03) M/mm3 Hgb (10.1-14.3) gm/dl Hct (30.3-42.9) % MCV (79-97) fl MCH (28-32) pg MCHC (30-34) % RDW (13.2-15.2) % Plt Count (140-440) K/mm3 Lymph % (Auto) (13.4-35.0) % [place] % (Auto) (0.0-7.3) % Eos % (Auto) (0.0-4.3) % Baso % (Auto) (0.0-1.8) % Lymph # (1.2-5.4) K/mm3 [place] # (0.0-0.8) K/mm3 Eos # (0.0-0.4) K/mm3 Baso # (0.0-0.1) K/mm3 Seg Neutrophils % (40.0-70.0) % Seg Neutrophils # (1.8-7.7) K/mm3 VBG pH 7.394 (7.320-7.420) Sodium (137-145) mmol/L Potassium (3.6-5.0) mmol/L Chloride (98-107) mmol/L Carbon Dioxide (22-30) mmol/L Anion Gap mmol/L BUN (7-17) mg/dL Creatinine (0.7-1.2) mg/dL Estimated GFR ml/min BUN/Creatinine Ratio % Glucose (65-100) mg/dL POC Glucose (70-105) Calcium (8.4-10.2) mg/dL Total Bilirubin (0.1-1.2) mg/dL AST (5-40) units/L ALT (7-56) units/L Alkaline Phosphatase (35-129) units/L Total Protein (6.3-8.2) g/dL Albumin (3.9-5) g/dL Albumin/Globulin Ratio % TSH 6.820 H (0.270-4.200) mlU/mL Free T4 0.44 L (0.76-1.46) ng/dL HCG, Qual Negative (Negative) Urine Color (Yellow) Urine Turbidity (Clear) Urine pH (5.0-7.0) Ur Specific [place] (1.003-1.030) Urine Protein (Negative) mg/dL Urine Glucose (UA) (Negative) mg/dL Urine Ketones (Negative) mg/dL Urine Blood (Negative) Urine Nitrite (Negative) Urine Bilirubin (Negative) Urine Urobilinogen (<2.0) mg/dL Ur Leukocyte Esterase (Negative) Urine WBC (Auto) (0.0-6.0) /HPF Urine RBC (Auto) (0.0-6.0) /HPF U Epithel Cells (Auto) (0-13.0) /HPF Urine Mucus /HPF 01/09/19 01/09/19 01/09/19 Range/Units 15:14 16:38 17:25 WBC (4.5-11.0) K/mm3 RBC (3.65-5.03) M/mm3 Hgb (10.1-14.3) gm/dl Hct (30.3-42.9) % MCV (79-97) fl MCH (28-32) pg MCHC (30-34) % RDW (13.2-15.2) % Plt Count (140-440) K/mm3 Lymph % (Auto) (13.4-35.0) % [place] % (Auto) (0.0-7.3) % Eos % (Auto) (0.0-4.3) % Baso % (Auto) (0.0-1.8) % Lymph # (1.2-5.4) K/mm3 [place] # (0.0-0.8) K/mm3 Eos # (0.0-0.4) K/mm3 Baso # (0.0-0.1) K/mm3 Seg Neutrophils % (40.0-70.0) % Seg Neutrophils # (1.8-7.7) K/mm3 VBG pH (7.320-7.420) Sodium (137-145) mmol/L Potassium (3.6-5.0) mmol/L Chloride (98-107) mmol/L Carbon Dioxide (22-30) mmol/L Anion Gap mmol/L BUN (7-17) mg/dL Creatinine (0.7-1.2) mg/dL Estimated GFR ml/min BUN/Creatinine Ratio % Glucose (65-100) mg/dL POC Glucose 263 H 90 (70-105) Calcium (8.4-10.2) mg/dL Total Bilirubin (0.1-1.2) mg/dL AST (5-40) units/L ALT (7-56) units/L Alkaline Phosphatase (35-129) units/L Total Protein (6.3-8.2) g/dL Albumin (3.9-5) g/dL Albumin/Globulin Ratio % TSH (0.270-4.200) mlU/mL Free T4 (0.76-1.46) ng/dL HCG, Qual (Negative) Urine Color Straw (Yellow) Urine Turbidity Clear (Clear) Urine pH 7.0 (5.0-7.0) Ur Specific [place] 1.012 (1.003-1.030) Urine Protein <15 mg/dl (Negative) mg/dL Urine Glucose (UA) >=500 (Negative) mg/dL Urine Ketones Neg (Negative) mg/dL Urine Blood Neg (Negative) Urine Nitrite Neg (Negative) Urine Bilirubin Neg (Negative) Urine Urobilinogen < 2.0 (<2.0) mg/dL Ur Leukocyte Esterase Tr (Negative) Urine WBC (Auto) 5.0 (0.0-6.0) /HPF Urine RBC (Auto) 2.0 (0.0-6.0) /HPF U Epithel Cells (Auto) < 1.0 (0-13.0) /HPF Urine Mucus Few /HPF - Medical Decision Making Patient's blood pressure responded to IV fluids. She did not urinate until she completed over 2 L of normal saline suggesting dehydration. Glucose improves with IV insulin without signs of DKA. Mild hypokalemia treated with by mouth potassium. Patient was fed in the ED because sugar dropped 90 after meds. P atient overall feeling better. No signs of active infection at this time and patient will be discharged home - Differential Diagnosis sepsis, DKA, infection, dehydration Critical Care Time: No Critical care attestation.: If time is entered above; I have spent that time in minutes in the direct care of this critically ill patient, excluding procedure time. ED Disposition Clinical Impression: Hemlock's disease, Hyperglycemia, Dehydration, Hypothyroid, Hypokalemia, Anemia Disposition: TO HOME OR SELFCARE Is pt being admited?: No Does the pt Need Aspirin: No Condition: Stable Instructions: Diabetic Hyperglycemia (ED), Dehydration (ED), Hypothyroidism (ED), Hypokalemia (ED), Anemia (ED) Additional Instructions: Take the medication as prescribed. Follow up with your doctor or the clinic/doctor provided. Return if symptoms worsen as indicated by your discharge instructions Prescriptions: Potassium Chloride [K-Dur] 20 meq PO QDAY #3 tablet Referrals: ZAINA LONDONO MD [Primary Care Provider] - 3-5 Days OLIMPIA HARRIS MD [Staff Physician] - 3-5 Days Time of Disposition: 18:34
[2019-01-09 18:06] LABS: Bilirubin,Urine NEG (Negative); Blood,Urine NEG (Negative); Color,Urine Straw (Yellow); Mucus,Urine FEW /HPF; Protein,Urine <15 mg/dL mg/dL (Negative); Urobilinogen,Urine < 2.0 mg/dL (<2.0)
[2019-01-09 18:32] VITALS: BP 104/77
[2019-01-09] MEDS ORDERED: FLUSH HEPARIN IV ONE (18:55)
== END 2019-01-09 19:02 | disposition home or self-care (01) ==
LOC: ED 13:15
DX: E11.65 Type 2 diabetes mellitus with hyperglycemia (principal); E27.1 Primary adrenocortical insufficiency; E03.9 Hypothyroidism, unspecified; E87.6 Hypokalemia; E86.0 Dehydration; D64.9 Anemia, unspecified; E11.22 Type 2 diabetes mellitus with diabetic chronic kidney disease; N18.2 Chronic kidney disease, stage 2 (mild); Z79.4 Long term (current) use of insulin; Z90.49 Acquired absence of other specified parts of digestive tract; Z79.899 Other long term (current) drug therapy; Z88.1 Allergy status to other antibiotic agents; Z88.0 Allergy status to penicillin; Z88.8 Allergy status to other drugs, medicaments and biological substances
CPT/HCPCS: 36415; 80053; 81001; 82805; 82962; 84439; 84443; 84703; 85025; 96361; 96374; 96375; 99284; J1642; J2405; J7030; J1815

== ENCOUNTER 2019-01-13 22:00 | Emergency (ER) | payer MEDICAID ==
[2019-01-13] MEDS ORDERED: NACL 0.9% 1000 ML 1,000 ML IV ONE ×2 (22:27→23:05)
[2019-01-13] MEDS ORDERED: ZOFRAN IV ONE (23:06)
[2019-01-13 23:25] LABS: Hematocrit 27.1 % (30.3-42.9); Hemoglobin 8.6 gm/dl (10.1-14.3); Mean Corpuscular HGB Conc 32 % (30-34); Mean Corpuscular Volume 87 fl (79-97); Platelet Count 186 K/mm3 (140-440); Red Blood Count 3.12 M/mm3 (3.65-5.03); Red Cell Distribution Width 18.4 % (13.2-15.2)
[2019-01-13 23:34] LABS: Bilirubin,Urine NEG (Negative); Blood,Urine NEG (Negative); Color,Urine Colorless (Yellow); Protein,Urine <15 mg/dL mg/dL (Negative); Urobilinogen,Urine < 2.0 mg/dL (<2.0)
[2019-01-13] MEDS ORDERED: MORPHINE IV ONE (23:37)
[2019-01-13] MEDS ORDERED: MORPHINE ONE (23:40)
[2019-01-13 23:48] LABS: Albumin 3.4 g/dL (3.9-5); Calcium 7.4 mg/dL (8.4-10.2)
[2019-01-14] MEDS ORDERED: HumuLIN R IV ONE ×2 (01:15→02:39)
[2019-01-14] MEDS ORDERED: NACL 0.9% 1000 ML 1,000 ML IV ONE (02:39)
--- NOTE | 2019-01-14 04:40 | Emergency Department Report ---
ED General Adult HPI - General Chief complaint: Hyperglycemia Stated complaint: HYPERGLYCEMIC Time Seen by Provider: 01/13/19 22:26 Source: EMS Mode of arrival: Ambulatory Limitations: No Limitations - History of Present Illness Initial comments: Patient is a 28-year-old female who is presenting with elevated blood sugar. Patient states she has had some nausea vomiting last day. Patient states for the last 3 days her blood sugar has been very low in the morning yet high in the evenings. Patient states her blood sugar was 28 this morning but was reading high this evening which prompted her to come to the hospital. Patient has been to this hospital numerous times for elevated blood sugar. She states she is taking her medications. Patient denies any fevers chills cough cold congestion at this time. Patient states she has just crampy abdominal discomfort is diffuse. Severity scale (0 -10): 0 - Related Data Home Medications Medication Instructions Recorded Confirmed Last Taken Levothyroxine Sodium [Synthroid] 125 mcg PO DAILY 09/23/18 12/25/18 11/18/18 10:01 Sertraline [Zoloft] 50 mg PO DAILY 12/10/18 12/25/18 Unknown Previous Rx's Medication Instructions Recorded Last Taken Type levETIRAcetam [Keppra TAB] 500 mg PO BID #60 tablet 10/26/18 11/16/18 09:00 Rx Famotidine [Pepcid] 20 mg PO BID #30 tablet 12/14/18 Unknown Rx Fludrocortisone [Florinef] 0.1 mg PO DAILY #30 tablet 12/14/18 Unknown Rx Hydrocortisone [Cortef TAB] 10 mg PO BID #60 tablet 12/14/18 Unknown Rx Insulin NPH/Regular [NovoLIN 70/30] 5 unit SQ BIDDIAB #10 ml 12/23/18 Unknown Rx Ondansetron (Nf) [Zofran TAB] 8 mg PO Q8HR PRN #14 tablet 12/23/18 Unknown Rx Acetaminophen [Non-Aspirin Extra 500 mg PO Q6HR PRN #30 tablet 12/26/18 Unknown Rx Strength] Selena Root [Selena] 250 mg PO QID PRN #30 capsule 12/26/18 Unknown Rx Potassium Chloride [K-Dur] 20 meq PO QDAY #3 tablet 01/09/19 Unknown Rx Ondansetron [Zofran Odt] 4 mg PO Q8HR #10 tab.rapdis 01/14/19 Unknown Rx Allergies Allergy/AdvReac Type Severity Reaction Status Date / Time Penicillins Allergy Angioedema Verified 12/31/18 16:01 vortioxetine Allergy Unknown Verified 12/31/18 16:01 [From Trintellix] ziprasidone [From Geodon] Allergy Angioedema Verified 12/31/18 16:01 vancomycin AdvReac Itching Verified 12/31/18 16:01 ED Review of Systems ROS: Stated complaint: HYPERGLYCEMIC Other details as noted in HPI Comment: All other systems reviewed and negative ED Past Medical Hx - Past Medical History Previous Medical History?: Yes Hx Congestive Heart Failure: No Hx Diabetes: Yes Hx Renal Disease: Yes (Stage 2) Hx Seizures: Yes Hx Asthma: No Hx COPD: No Additional medical history: hypotension, hypothyroidism, Spink's disease - Surgical History Past Surgical History?: Yes Hx Cholecystectomy: Yes Hx Appendectomy: Yes Additional Surgical History: 4. port right chest wall - Social History Smoking Status: Never Smoker Substance Use Type: None - Medications Home Medications: Home Medications Medication Instructions Recorded Confirmed Last Taken Type Levothyroxine Sodium [Synthroid] 125 mcg PO DAILY 09/23/18 12/25/18 11/18/18 10:01 History levETIRAcetam [Keppra TAB] 500 mg PO BID #60 tablet 10/26/18 12/25/18 11/16/18 09:00 Rx Sertraline [Zoloft] 50 mg PO DAILY 12/10/18 12/25/18 Unknown History Famotidine [Pepcid] 20 mg PO BID #30 tablet 12/14/18 12/25/18 Unknown Rx Fludrocortisone [Florinef] 0.1 mg PO DAILY #30 tablet 12/14/18 12/25/18 Unknown Rx Hydrocortisone [Cortef TAB] 10 mg PO BID #60 tablet 12/14/18 12/25/18 Unknown Rx Insulin NPH/Regular [NovoLIN 70/30] 5 unit SQ BIDDIAB #10 ml 12/23/18 12/25/18 Unknown Rx Ondansetron (Nf) [Zofran TAB] 8 mg PO Q8HR PRN #14 tablet 12/23/18 12/25/18 Unknown Rx Acetaminophen [Non-Aspirin Extra 500 mg PO Q6HR PRN #30 tablet 12/26/18 Unknown Rx Strength] Selena Root [Selena] 250 mg PO QID PRN #30 capsule 12/26/18 Unknown Rx Potassium Chloride [K-Dur] 20 meq PO QDAY #3 tablet 01/09/19 Unknown Rx Ondansetron [Zofran Odt] 4 mg PO Q8HR #10 tab.rapdis 01/14/19 Unknown Rx ED Physical Exam - General Limitations: No Limitations General appearance: alert, in no apparent distress - Head Head exam: Present: atraumatic, normocephalic - Eye Eye exam: Present: normal appearance - ENT ENT exam: Present: mucous membranes moist - Neck Neck exam: Present: normal inspection - Respiratory Respiratory exam: Present: normal lung sounds bilaterally. Absent: respiratory distress, wheezes, rales, rhonchi - Cardiovascular Cardiovascular Exam: Present: regular rate, normal rhythm. Absent: systolic murmur, diastolic murmur, rubs, gallop - GI/Abdominal GI/Abdominal exam: Present: soft, normal bowel sounds. Absent: distended, tenderness, guarding, rebound - Extremities Exam Extremities exam: Present: normal inspection - Back Exam Back exam: Present: normal inspection - Neurological Exam Neurological exam: Present: alert, oriented X3 - Psychiatric Psychiatric exam: Present: normal affect, normal mood - Skin Skin exam: Present: warm, dry, intact, normal color. Absent: rash ED Course Vital Signs 01/13/19 01/13/19 01/13/19 22:07 22:40 22:42 Temperature 98.0 F Pulse Rate 89 77 77 Respiratory 18 14 14 Rate Blood Pressure 135/95 134/94 O2 Sat by Pulse 97 99 Oximetry 01/13/19 01/13/19 01/13/19 22:45 23:00 23:15 Temperature Pulse Rate 75 77 80 Respiratory 13 18 10 L Rate Blood Pressure 139/90 133/88 129/87 O2 Sat by Pulse 100 Oximetry 01/13/19 01/13/19 01/13/19 23:18 23:30 23:45 Temperature Pulse Rate 80 84 Respiratory 14 13 14 Rate Blood Pressure 115/82 100/70 O2 Sat by Pulse 99 97 96 Oximetry 01/14/19 01/14/19 01/14/19 00:00 00:15 00:30 Temperature Pulse Rate 81 81 80 Respiratory 12 9 L 9 L Rate Blood Pressure 99/67 95/67 91/63 O2 Sat by Pulse 96 96 98 Oximetry 01/14/19 01/14/19 00:45 01:16 Temperature Pulse Rate 80 79 Respiratory 11 L 10 L Rate Blood Pressure 95/63 98/67 O2 Sat by Pulse 96 97 Oximetry ED Medical Decision Making - Lab Data Result diagrams: 01/13/19 23:03 01/14/19 02:32 Lab Results 01/13/19 01/13/19 01/13/19 Range/Units 22:24 22:59 23:03 WBC 5.5 (4.5-11.0) K/mm3 RBC 3.12 L (3.65-5.03) M/mm3 Hgb 8.6 L (10.1-14.3) gm/dl Hct 27.1 L (30.3-42.9) % MCV 87 (79-97) fl MCH 28 (28-32) pg MCHC 32 (30-34) % RDW 18.4 H (13.2-15.2) % Plt Count 186 (140-440) K/mm3 VBG pH (7.320-7.420) Sodium (137-145) mmol/L Potassium (3.6-5.0) mmol/L Chloride (98-107) mmol/L Carbon Dioxide (22-30) mmol/L Anion Gap mmol/L BUN (7-17) mg/dL Creatinine (0.7-1.2) mg/dL Estimated GFR ml/min BUN/Creatinine Ratio % Glucose (65-100) mg/dL POC Glucose > 500 H (70-105) Calcium (8.4-10.2) mg/dL Total Bilirubin (0.1-1.2) mg/dL AST (5-40) units/L ALT (7-56) units/L Alkaline Phosphatase (35-129) units/L Total Protein (6.3-8.2) g/dL Albumin (3.9-5) g/dL Albumin/Globulin Ratio % HCG, Qual (Negative) Urine Color Colorless (Yellow) Urine Turbidity Clear (Clear) Urine pH 6.0 (5.0-7.0) Ur Specific [place] 1.013 (1.003-1.030) Urine Protein <15 mg/dl (Negative) mg/dL Urine Glucose (UA) >=500 (Negative) mg/dL Urine Ketones Neg (Negative) mg/dL Urine Blood Neg (Negative) Urine Nitrite Neg (Negative) Urine Bilirubin Neg (Negative) Urine Urobilinogen < 2.0 (<2.0) mg/dL Ur Leukocyte Esterase Sm (Negative) Urine WBC (Auto) 12.0 H (0.0-6.0) /HPF Urine RBC (Auto) 2.0 (0.0-6.0) /HPF 01/13/19 01/13/19 01/13/19 Range/Units 23:03 23:03 23:03 WBC (4.5-11.0) K/mm3 RBC (3.65-5.03) M/mm3 Hgb (10.1-14.3) gm/dl Hct (30.3-42.9) % MCV (79-97) fl MCH (28-32) pg MCHC (30-34) % RDW (13.2-15.2) % Plt Count (140-440) K/mm3 VBG pH 7.372 (7.320-7.420) Sodium 122 L D (137-145) mmol/L Potassium 5.4 H D (3.6-5.0) mmol/L Chloride 87.2 L (98-107) mmol/L Carbon Dioxide 26 (22-30) mmol/L Anion Gap 14 mmol/L BUN 14 (7-17) mg/dL Creatinine 1.5 H (0.7-1.2) mg/dL Estimated GFR 41 ml/min BUN/Creatinine Ratio 9 % Glucose 894 H* (65-100) mg/dL POC Glucose (70-105) Calcium 7.4 L (8.4-10.2) mg/dL Total Bilirubin 0.20 (0.1-1.2) mg/dL AST 188 H (5-40) units/L ALT 83 H (7-56) units/L Alkaline Phosphatase 124 (35-129) units/L Total Protein 5.5 L (6.3-8.2) g/dL Albumin 3.4 L (3.9-5) g/dL Albumin/Globulin Ratio 1.6 % HCG, Qual Negative (Negative) Urine Color (Yellow) Urine Turbidity (Clear) Urine pH (5.0-7.0) Ur Specific [place] (1.003-1.030) Urine Protein (Negative) mg/dL Urine Glucose (UA) (Negative) mg/dL Urine Ketones (Negative) mg/dL Urine Blood (Negative) Urine Nitrite (Negative) Urine Bilirubin (Negative) Urine Urobilinogen (<2.0) mg/dL Ur Leukocyte Esterase (Negative) Urine WBC (Auto) (0.0-6.0) /HPF Urine RBC (Auto) (0.0-6.0) /HPF 01/14/19 01/14/19 01/14/19 Range/Units 02:31 02:32 03:43 WBC (4.5-11.0) K/mm3 RBC (3.65-5.03) M/mm3 Hgb (10.1-14.3) gm/dl Hct (30.3-42.9) % MCV (79-97) fl MCH (28-32) pg MCHC (30-34) % RDW (13.2-15.2) % Plt Count (140-440) K/mm3 VBG pH (7.320-7.420) Sodium (137-145) mmol/L Potassium (3.6-5.0) mmol/L Chloride (98-107) mmol/L Carbon Dioxide (22-30) mmol/L Anion Gap mmol/L BUN (7-17) mg/dL Creatinine (0.7-1.2) mg/dL Estimated GFR ml/min BUN/Creatinine Ratio % Glucose 501 H* (65-100) mg/dL POC Glucose > 500 H 302 H (70-105) Calcium (8.4-10.2) mg/dL Total Bilirubin (0.1-1.2) mg/dL AST (5-40) units/L ALT (7-56) units/L Alkaline Phosphatase (35-129) units/L Total Protein (6.3-8.2) g/dL Albumin (3.9-5) g/dL Albumin/Globulin Ratio % HCG, Qual (Negative) Urine Color (Yellow) Urine Turbidity (Clear) Urine pH (5.0-7.0) Ur Specific [place] (1.003-1.030) Urine Protein (Negative) mg/dL Urine Glucose (UA) (Negative) mg/dL Urine Ketones (Negative) mg/dL Urine Blood (Negative) Urine Nitrite (Negative) Urine Bilirubin (Negative) Urine Urobilinogen (<2.0) mg/dL Ur Leukocyte Esterase (Negative) Urine WBC (Auto) (0.0-6.0) /HPF Urine RBC (Auto) (0.0-6.0) /HPF Patient's corrected sodium was 135 - Medical Decision Making Patient was hydrated and given several doses of IV insulin which did improve her glucose. Patient does not appear to be in DKA and has no evidence of acidosis. Patient will be discharged home follow-up primary care physician. Critical care attestation.: If time is entered above; I have spent that time in minutes in the direct care of this critically ill patient, excluding procedure time. ED Disposition Clinical Impression: Hyperglycemia Disposition: DC-01 TO HOME OR SELFCARE Is pt being admited?: No Does the pt Need Aspirin: No Condition: Stable Referrals: ZAINA LONDONO MD [Primary Care Provider] - 3-5 Days Time of Disposition: 04:40
[2019-01-14] MEDS ORDERED: FLUSH HEPARIN IV ONE (04:57)
[2019-01-14 05:06] VITALS: BP 91/55
== END 2019-01-14 05:05 | disposition home or self-care (01) ==
LOC: ED 22:00
DX: E11.65 Type 2 diabetes mellitus with hyperglycemia (principal); E11.22 Type 2 diabetes mellitus with diabetic chronic kidney disease; N18.2 Chronic kidney disease, stage 2 (mild); E03.9 Hypothyroidism, unspecified; Z79.4 Long term (current) use of insulin; Z90.49 Acquired absence of other specified parts of digestive tract; Z79.899 Other long term (current) drug therapy; Z88.1 Allergy status to other antibiotic agents; Z88.0 Allergy status to penicillin; Z88.8 Allergy status to other drugs, medicaments and biological substances
CPT/HCPCS: 36415; 80053; 81001; 82805; 82947; 82962; 84703; 85027; 87086; 96361; 96374; 96375; 96376; 99284; J1642; J2270; J2405; J7030; J1815

== ENCOUNTER 2019-01-16 19:46 | Emergency (ER) | payer MEDICAID ==
--- NOTE | 2019-01-16 20:09 | Emergency Department Report ---
ED General Adult HPI - General Stated complaint: HYPERGLYCEMIC/WEAK/DISSINESS Time Seen by Provider: 01/16/19 20:08 - History of Present Illness Initial comments: 28 y.o. female with a history of diabetes presents with complaint of generalized weakness. Patient also complains of generalized pain as well. Patient states that on her glucometer at home her blood sugar was reading greater than 600. Patient complains of vomiting as well. Patient states that her last liquid intake was 11:30 AM. Patient complains of polyuria as well as polydipsia. Patient states that her last admission for diabetes or related complications was 2018. - Related Data Home Medications Medication Instructions Recorded Confirmed Last Taken Levothyroxine Sodium [Synthroid] 125 mcg PO DAILY 09/23/18 12/25/18 11/18/18 10:01 Sertraline [Zoloft] 50 mg PO DAILY 12/10/18 12/25/18 Unknown Previous Rx's Medication Instructions Recorded Last Taken Type levETIRAcetam [Keppra TAB] 500 mg PO BID #60 tablet 10/26/18 11/16/18 09:00 Rx Famotidine [Pepcid] 20 mg PO BID #30 tablet 12/14/18 Unknown Rx Fludrocortisone [Florinef] 0.1 mg PO DAILY #30 tablet 12/14/18 Unknown Rx Hydrocortisone [Cortef TAB] 10 mg PO BID #60 tablet 12/14/18 Unknown Rx Insulin NPH/Regular [NovoLIN 70/30] 5 unit SQ BIDDIAB #10 ml 12/23/18 Unknown Rx Ondansetron (Nf) [Zofran TAB] 8 mg PO Q8HR PRN #14 tablet 12/23/18 Unknown Rx Acetaminophen [Non-Aspirin Extra 500 mg PO Q6HR PRN #30 tablet 12/26/18 Unknown Rx Strength] Selena Root [Selena] 250 mg PO QID PRN #30 capsule 12/26/18 Unknown Rx Potassium Chloride [K-Dur] 20 meq PO QDAY #3 tablet 01/09/19 Unknown Rx Ondansetron [Zofran Odt] 4 mg PO Q8HR #10 tab.rapdis 01/14/19 Unknown Rx Allergies Allergy/AdvReac Type Severity Reaction Status Date / Time Penicillins Allergy Angioedema Verified 12/31/18 16:01 vortioxetine Allergy Unknown Verified 12/31/18 16:01 [From Trintellix] ziprasidone [From Geodon] Allergy Angioedema Verified 12/31/18 16:01 vancomycin AdvReac Itching Verified 12/31/18 16:01 ED Review of Systems ROS: Stated complaint: HYPERGLYCEMIC/WEAK/DISSINESS Other details as noted in HPI Constitutional: denies: chills, fever Eyes: denies: eye pain, eye discharge, vision change ENT: denies: ear pain, throat pain Respiratory: denies: cough, shortness of breath, wheezing Cardiovascular: denies: chest pain, palpitations Endocrine: no symptoms reported Gastrointestinal: denies: abdominal pain, nausea, diarrhea Genitourinary: denies: urgency, dysuria, discharge Musculoskeletal: denies: back pain, joint swelling, arthralgia Skin: denies: rash, lesions Neurological: weakness, other (dizziness) Psychiatric: denies: anxiety, depression Hematological/Lymphatic: denies: easy bleeding, easy bruising ED Past Medical Hx - Past Medical History Hx Congestive Heart Failure: No Hx Diabetes: Yes Hx Renal Disease: Yes (Stage 2) Hx Seizures: Yes Hx Asthma: No Hx COPD: No Additional medical history: hypotension, hypothyroidism, [place]'s disease - Surgical History Hx Cholecystectomy: Yes Hx Appendectomy: Yes Additional Surgical History: 4. port right chest wall - Social History Smoking Status: Never Smoker Substance Use Type: None - Medications Home Medications: Home Medications Medication Instructions Recorded Confirmed Last Taken Type Levothyroxine Sodium [Synthroid] 125 mcg PO DAILY 09/23/18 12/25/18 11/18/18 10:01 History levETIRAcetam [Keppra TAB] 500 mg PO BID #60 tablet 10/26/18 12/25/18 11/16/18 09:00 Rx Sertraline [Zoloft] 50 mg PO DAILY 12/10/18 12/25/18 Unknown History Famotidine [Pepcid] 20 mg PO BID #30 tablet 12/14/18 12/25/18 Unknown Rx Fludrocortisone [Florinef] 0.1 mg PO DAILY #30 tablet 12/14/18 12/25/18 Unknown Rx Hydrocortisone [Cortef TAB] 10 mg PO BID #60 tablet 12/14/18 12/25/18 Unknown Rx Insulin NPH/Regular [NovoLIN 70/30] 5 unit SQ BIDDIAB #10 ml 12/23/18 12/25/18 Unknown Rx Ondansetron (Nf) [Zofran TAB] 8 mg PO Q8HR PRN #14 tablet 12/23/18 12/25/18 Unknown Rx Acetaminophen [Non-Aspirin Extra 500 mg PO Q6HR PRN #30 tablet 12/26/18 Unknown Rx Strength] Selena Root [Selena] 250 mg PO QID PRN #30 capsule 12/26/18 Unknown Rx Potassium Chloride [K-Dur] 20 meq PO QDAY #3 tablet 01/09/19 Unknown Rx Ondansetron [Zofran Odt] 4 mg PO Q8HR #10 tab.rapdis 01/14/19 Unknown Rx ED Physical Exam - General General appearance: alert, other (dehydrated; mild distress) - Head Head exam: Present: atraumatic, normocephalic - Eye Eye exam: Present: normal appearance - ENT ENT exam: Present: mucous membranes dry - Neck Neck exam: Present: normal inspection - Respiratory Respiratory exam: Present: normal lung sounds bilaterally. Absent: respiratory distress - Cardiovascular Cardiovascular Exam: Present: regular rate, normal rhythm. Absent: systolic murmur, diastolic murmur, rubs, gallop - GI/Abdominal GI/Abdominal exam: Present: soft, normal bowel sounds. Absent: tenderness - Extremities Exam Extremities exam: Present: normal inspection - Back Exam Back exam: Present: normal inspection - Neurological Exam Neurological exam: Present: alert, oriented X3 - Psychiatric Psychiatric exam: Present: normal affect, normal mood - Skin Skin exam: Present: warm, dry, intact, normal color. Absent: rash ED Course Vital Signs 01/16/19 01/16/19 01/16/19 20:17 20:18 20:22 Temperature 98.4 F 98.4 F Pulse Rate 76 Blood Pressure 122/83 O2 Sat by Pulse 100 Oximetry 01/16/19 01/16/19 01/16/19 20:30 21:03 21:28 Temperature Pulse Rate Blood Pressure 110/92 121/85 121/85 O2 Sat by Pulse 100 98 100 Oximetry 01/16/19 01/16/19 01/16/19 21:30 21:43 22:00 Temperature Pulse Rate Blood Pressure 126/81 126/81 102/75 O2 Sat by Pulse 97 99 98 Oximetry 01/16/19 01/16/19 01/16/19 22:30 23:00 23:30 Temperature Pulse Rate Blood Pressure 112/80 107/77 111/81 O2 Sat by Pulse 100 100 Oximetry 01/17/19 00:00 Temperature Pulse Rate Blood Pressure 103/70 O2 Sat by Pulse 100 Oximetry ED Medical Decision Making - Lab Data Result diagrams: 01/16/19 21:00 01/16/19 21:00 - Medical Decision Making Patient received 2 L bolus of normal saline while here in emergency department. Patient also received 10 units of insulin IV while in the emergency department as well. Patient also received another 5 units of insulin after continuing to have glucose that was greater than 500 while in the ER. Patient resulting accucheck after these interventions was 165. Patient has no elevated anion gap either. Patient to be discharged to follow up with PCP. - Differential Diagnosis DKA; hyperextending hyperosmolar nonketotic state; anemia; Critical care attestation.: If time is entered above; I have spent that time in minutes in the direct care of this critically ill patient, excluding procedure time. ED Disposition Clinical Impression: Insulin dependent diabetes mellitus, Uncontrolled diabetes mellitus Disposition: DC-01 TO HOME OR SELFCARE Is pt being admited?: No Does the pt Need Aspirin: No Condition: Stable Instructions: Diabetes Mellitus Type 2 in Adults (ED) Referrals: ZAINA LONDONO MD [Primary Care Provider] - 3-5 Days Time of Disposition: 01:07 Print Language: MALAYSIAN
[2019-01-16] MEDS ORDERED: NACL 0.9% 1000 ML 1,000 ML IV ONE ×2 (20:41→22:09)
[2019-01-16] MEDS ORDERED: ZOFRAN IV ONE (20:41)
[2019-01-16] MEDS ORDERED: HumuLIN R IV ONE ×2 (20:51→22:08)
[2019-01-16 21:17] LABS: Hematocrit 27.8 % (30.3-42.9); Hemoglobin 9.2 gm/dl (10.1-14.3); Mean Corpuscular HGB Conc 33 % (30-34); Mean Corpuscular Hemoglobin 28 pg (28-32); Mean Corpuscular Volume 83 fl (79-97); Platelet Count 213 K/mm3 (140-440); Red Blood Count 3.36 M/mm3 (3.65-5.03); Red Cell Distribution Width 17.7 % (13.2-15.2)
--- NOTE | 2019-01-16 21:21 | XRay Report ---
CHEST 1 VIEW INDICATION / CLINICAL INFORMATION: Lightheadedness/Dizziness. COMPARISON: 12/10/2018 FINDINGS: SUPPORT DEVICES: [place] catheter remains in place on the right. HEART / MEDIASTINUM: No significant abnormality. LUNGS / PLEURA: No significant pulmonary or pleural abnormality. No pneumothorax. ADDITIONAL FINDINGS: No significant additional findings. IMPRESSION: 1. No acute findings. Signer Name: Cameron Reese MD Signed: 01/16/2019 9:17 PM Workstation Name: [id number]
[2019-01-16 21:25] LABS: Bilirubin,Urine NEG (Negative); Blood,Urine NEG (Negative); Color,Urine Colorless (Yellow); Protein,Urine <15 mg/dL mg/dL (Negative); Urobilinogen,Urine < 2.0 mg/dL (<2.0)
[2019-01-16] MEDS ORDERED: NACL 0.9% 1000 ML 1,000 ML ONE (21:28)
[2019-01-16 21:34] LABS: Albumin 3.1 g/dL (3.9-5); Calcium 8.3 mg/dL (8.4-10.2)
[2019-01-16 22:03] LABS: RBC Morphology Normal; Total Cells Counted 100
[2019-01-17 02:03] VITALS: BP 93/64
== END 2019-01-17 02:04 | disposition home or self-care (01) ==
LOC: ED 19:46
DX: E11.65 Type 2 diabetes mellitus with hyperglycemia (principal); E86.0 Dehydration; I12.9 Hypertensive chronic kidney disease with stage 1 through stage 4 chronic kidney disease, or unspecified chronic kidney disease; E11.22 Type 2 diabetes mellitus with diabetic chronic kidney disease; N18.2 Chronic kidney disease, stage 2 (mild); E03.9 Hypothyroidism, unspecified; E27.1 Primary adrenocortical insufficiency; Z79.4 Long term (current) use of insulin; Z79.899 Other long term (current) drug therapy; Z90.49 Acquired absence of other specified parts of digestive tract; Z88.1 Allergy status to other antibiotic agents; Z88.0 Allergy status to penicillin; Z88.8 Allergy status to other drugs, medicaments and biological substances
CPT/HCPCS: 36415; 71045; 80053; 81001; 82962; 85007; 85025; 96361; 96374; 96375; 96376; 99284; J2405; J7030; J1815

== ENCOUNTER 2019-01-28 09:01 | Emergency (ER) | payer MEDICAID ==
[2019-01-28] MEDS ORDERED: NACL 0.9% 1000 ML 1,000 ML IV ONE ×2 (09:33→10:55)
[2019-01-28] MEDS ORDERED: D50W (25GM) Syringe IV PRN (09:51)
[2019-01-28] MEDS ORDERED: D50W (25GM) Syringe IV ONE (09:51)
--- NOTE | 2019-01-28 09:53 | Event Note ---
Date: 01/28/19 Medical screening examination: 25-year-old female presenting with hypoglycemia. The patient is afebrile with reassuring vital signs and clinically well- appearing. Her right-sided thoracic port has been accessed by nursing team. She is eating food without difficulty. We have requested basic screening laboratory studies, and a medication reconciliation. We will defer to nursing team to acquire these. Vital Signs 01/28/19 09:16 Temperature 98 F Pulse Rate 88 Respiratory 14 Rate Blood Pressure 83/59 O2 Sat by Pulse 98 Oximetry Lab Results 01/28/19 Range/Units 09:14 POC Glucose 57 L (70-105)
[2019-01-28] MEDS ORDERED: D5/0.45NS 1,000 ML IV SCH (10:00)
[2019-01-28 10:05] LABS: Hematocrit 30.9 % (30.3-42.9); Hemoglobin 10.4 gm/dl (10.1-14.3); Mean Corpuscular HGB Conc 34 % (30-34); Mean Corpuscular Volume 83 fl (79-97); Platelet Count 244 K/mm3 (140-440); Red Blood Count 3.75 M/mm3 (3.65-5.03); Red Cell Distribution Width 18.4 % (13.2-15.2)
[2019-01-28 10:12] LABS: Bilirubin,Urine NEG (Negative); Blood,Urine NEG (Negative); Color,Urine Straw (Yellow); Mucus,Urine FEW /HPF; Protein,Urine <15 mg/dL mg/dL (Negative); Urobilinogen,Urine < 2.0 mg/dL (<2.0)
[2019-01-28 10:20] LABS: INR 0.95 (0.87-1.13)
[2019-01-28 10:21] LABS: Partial Thromboplastin Time 30.5 Sec. (24.2-36.6)
[2019-01-28] MEDS ORDERED: ZOFRAN IV ONE ×2 (10:22→10:30)
[2019-01-28 10:24] LABS: HCG Qualitative,Urine Negative (Negative)
--- NOTE | 2019-01-28 10:46 | Emergency Department Report ---
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 Patient states that her sugar prior to arrival was 16. The patient took 10 glucose tablets at 7:30 this morning and her blood sugar increased to 60. Patient denied any dizziness or blurred vision seizures. Patient states she has not taken her insulin in the last 2 days. Patient takes Humalog. Patient states she has no issues at this time. Patient states that her blood pressure 83/59 is normal for her. - Related Data Home Medications Medication Instructions Recorded Confirmed Last Taken Levothyroxine Sodium [Synthroid] 125 mcg PO DAILY 09/23/18 01/28/19 01/27/19 Fludrocortisone [Florinef] 0.1 mg PO QAM 01/28/19 01/28/19 01/27/19 Hydrocortisone [Cortef TAB] 5 mg PO QHS 01/28/19 01/28/19 01/27/19 Hydrocortisone [Cortef TAB] 10 mg PO QAM 01/28/19 01/28/19 01/27/19 Insulin Degludec [Tresiba 8 units SUB-Q QAM 01/28/19 01/28/19 01/26/19 Flextouch U-100] Lispro Insulin [HumaLOG] 1 dose SUB-Q AC PRN 01/28/19 01/28/19 01/26/19 Sertraline [Zoloft] 25 mg PO QDAY 01/28/19 01/28/19 01/27/19 Previous Rx's Medication Instructions Recorded Last Taken Type levETIRAcetam [Keppra TAB] 500 mg PO BID #60 tablet 10/26/18 01/27/19 Rx Allergies Allergy/AdvReac Type Severity Reaction Status Date / Time Penicillins Allergy Angioedema Verified 12/31/18 16:01 vortioxetine Allergy Unknown Verified 12/31/18 16:01 [From Trintellix] ziprasidone [From Geodon] Allergy Angioedema Verified 12/31/18 16:01 vancomycin AdvReac Itching Verified 12/31/18 16:01 ED Review of Systems ROS: Stated complaint: HYPOGLYCEMIA Other details as noted in HPI Comment: All other systems reviewed and negative ED Past Medical Hx - Past Medical History Previous Medical History?: Yes Hx Congestive Heart Failure: No Hx Diabetes: Yes Hx Renal Disease: Yes (Stage 2) Hx Seizures: Yes Hx Asthma: No Hx COPD: No Additional medical history: hypotension, hypothyroidism, [place]'s disease, Depression - Surgical History Past Surgical History?: Yes Hx Cholecystectomy: Yes Hx Appendectomy: Yes Additional Surgical History: 4. port right chest wall - Social History Smoking Status: Never Smoker Substance Use Type: None - Medications Home Medications: Home Medications Medication Instructions Recorded Confirmed Last Taken Type Levothyroxine Sodium [Synthroid] 125 mcg PO DAILY 09/23/18 01/28/19 01/27/19 History levETIRAcetam [Keppra TAB] 500 mg PO BID #60 tablet 10/26/18 01/28/19 01/27/19 Rx Fludrocortisone [Florinef] 0.1 mg PO QAM 01/28/19 01/28/19 01/27/19 History Hydrocortisone [Cortef TAB] 5 mg PO QHS 01/28/19 01/28/19 01/27/19 History Hydrocortisone [Cortef TAB] 10 mg PO QAM 01/28/19 01/28/19 01/27/19 History Insulin Degludec [Tresiba 8 units SUB-Q QAM 01/28/19 01/28/19 01/26/19 History Flextouch U-100] Lispro Insulin [HumaLOG] 1 dose SUB-Q AC PRN 01/28/19 01/28/19 01/26/19 History Sertraline [Zoloft] 25 mg PO QDAY 01/28/19 01/28/19 01/27/19 History ED Physical Exam - General Limitations: No Limitations General appearance: alert, in no apparent distress - Head Head exam: Present: atraumatic, normocephalic - Eye Eye exam: Present: normal appearance, PERRL, EOMI - ENT ENT exam: Present: mucous membranes moist - Neck Neck exam: Present: normal inspection - Respiratory Respiratory exam: Present: normal lung sounds bilaterally. Absent: respiratory distress, wheezes, rales, rhonchi - Cardiovascular Cardiovascular Exam: Present: regular rate, normal rhythm, normal heart sounds. Absent: systolic murmur, diastolic murmur, rubs, gallop - GI/Abdominal GI/Abdominal exam: Present: soft, normal bowel sounds. Absent: distended, tenderness, guarding, rebound - Extremities Exam Extremities exam: Present: normal inspection - Back Exam Back exam: Present: normal inspection - Neurological Exam Neurological exam: Present: alert, oriented X3, CN II-XII intact. Absent: motor sensory deficit - Psychiatric Psychiatric exam: Present: normal affect, normal mood - Skin Skin exam: Present: warm, dry, intact, normal color. Absent: rash ED Course Vital Signs 01/28/19 01/28/19 01/28/19 09:10 09:15 09:16 Temperature 98 F Pulse Rate 89 88 Respiratory 17 14 Rate Blood Pressure 83/59 80/54 83/59 Blood Pressure [Right] O2 Sat by Pulse 100 98 Oximetry 01/28/19 01/28/19 01/28/19 09:30 09:45 10:00 Temperature Pulse Rate 87 85 Respiratory 12 17 Rate Blood Pressure 95/71 97/62 81/60 Blood Pressure [Right] O2 Sat by Pulse 98 100 99 Oximetry 01/28/19 01/28/19 01/28/19 10:15 10:30 10:45 Temperature Pulse Rate 80 78 78 Respiratory 13 16 13 Rate Blood Pressure 84/52 90/56 77/51 Blood Pressure [Right] O2 Sat by Pulse 100 100 100 Oximetry 01/28/19 01/28/19 01/28/19 11:00 11:15 11:30 Temperature Pulse Rate 81 78 78 Respiratory 16 15 Rate Blood Pressure 85/56 99/51 96/50 Blood Pressure [Right] O2 Sat by Pulse 99 100 100 Oximetry 01/28/19 12:00 Temperature Pulse Rate 80 Respiratory 13 Rate Blood Pressure Blood Pressure 94/68 [Right] O2 Sat by Pulse 100 Oximetry ED Medical Decision Making - Lab Data Result diagrams: 01/28/19 09:55 Lab Results 01/28/19 01/28/19 01/28/19 Range/Units 09:14 09:55 09:55 WBC 6.8 (4.5-11.0) K/mm3 RBC 3.75 (3.65-5.03) M/mm3 Hgb 10.4 (10.1-14.3) gm/dl Hct 30.9 (30.3-42.9) % MCV 83 (79-97) fl MCH 28 (28-32) pg MCHC 34 (30-34) % RDW 18.4 H (13.2-15.2) % Plt Count 244 (140-440) K/mm3 Seg Neutrophils % [employer] PT (12.2-14.9) Sec. INR (0.87-1.13) APTT (24.2-36.6) Sec. POC Glucose 57 L (70-105) Urine Color Straw (Yellow) Urine Turbidity Clear (Clear) Urine pH 6.0 (5.0-7.0) Ur Specific [place] 1.010 (1.003-1.030) Urine Protein <15 mg/dl (Negative) mg/dL Urine Glucose (UA) 150 (Negative) mg/dL Urine Ketones Neg (Negative) mg/dL Urine Blood Neg (Negative) Urine Nitrite Neg (Negative) Urine Bilirubin Neg (Negative) Urine Urobilinogen < 2.0 (<2.0) mg/dL Ur Leukocyte Esterase Tr (Negative) Urine WBC (Auto) 3.0 (0.0-6.0) /HPF Urine RBC (Auto) 3.0 (0.0-6.0) /HPF U Epithel Cells (Auto) 1.0 (0-13.0) /HPF Urine Mucus Few /HPF Urine HCG, Qual Negative (Negative) 01/28/19 01/28/19 Range/Units 09:55 10:37 WBC (4.5-11.0) K/mm3 RBC (3.65-5.03) M/mm3 Hgb (10.1-14.3) gm/dl Hct (30.3-42.9) % MCV (79-97) fl MCH (28-32) pg MCHC (30-34) % RDW (13.2-15.2) % Plt Count (140-440) K/mm3 Seg Neutrophils % PT 12.4 (12.2-14.9) Sec. INR 0.95 (0.87-1.13) APTT 30.5 (24.2-36.6) Sec. POC Glucose 270 H (70-105) Urine Color (Yellow) Urine Turbidity (Clear) Urine pH (5.0-7.0) Ur Specific [place] (1.003-1.030) Urine Protein (Negative) mg/dL Urine Glucose (UA) (Negative) mg/dL Urine Ketones (Negative) mg/dL Urine Blood (Negative) Urine Nitrite (Negative) Urine Bilirubin (Negative) Urine Urobilinogen (<2.0) mg/dL Ur Leukocyte Esterase (Negative) Urine WBC (Auto) (0.0-6.0) /HPF Urine RBC (Auto) (0.0-6.0) /HPF U Epithel Cells (Auto) (0-13.0) /HPF Urine Mucus /HPF Urine HCG, Qual (Negative) - Medical Decision Making The patient was given food to help maintain her blood sugar. Patient wasn't was checked numerous times over several hours and she is not had any further episodes of hypoglycemia. Patient was only on the D5 drip briefly. Patient states she feels fine and would like to go home. Patient be discharged at this time. Critical care attestation.: If time is entered above; I have spent that time in minutes in the direct care of this critically ill patient, excluding procedure time. ED Disposition Clinical Impression: Hypoglycemia Disposition: DC-01 TO HOME OR SELFCARE Is pt being admited?: No Does the pt Need Aspirin: No Condition: Stable Referrals: ZAINA LONDONO MD [Primary Care Provider] - 3-5 Days Time of Disposition: 12:20
[2019-01-28 12:00] VITALS: BP 94/68
[2019-01-28 12:25] LABS: Anisocytosis Few; Basophils % (Manual) 0 % (0.0-1.8); Monocytes % (Manual) 0 % (0.0-7.3); Platelet Estimate Consistent w Auto; Total Cells Counted 100
[2019-01-28] MEDS ORDERED: FLUSH HEPARIN IV ONE ×2 (12:29→12:35)
[2019-01-28 14:12] LABS: Calcium 8.4 mg/dL (8.4-10.2)
== END 2019-01-28 12:42 | disposition home or self-care (01) ==
LOC: ED 09:01
DX: E11.649 Type 2 diabetes mellitus with hypoglycemia without coma (principal); E11.22 Type 2 diabetes mellitus with diabetic chronic kidney disease; N18.2 Chronic kidney disease, stage 2 (mild); I95.9 Hypotension, unspecified; E03.9 Hypothyroidism, unspecified; E27.1 Primary adrenocortical insufficiency; F32.9 Major depressive disorder, single episode, unspecified; Z90.49 Acquired absence of other specified parts of digestive tract; Z79.899 Other long term (current) drug therapy; Z88.0 Allergy status to penicillin; Z88.8 Allergy status to other drugs, medicaments and biological substances
CPT/HCPCS: 36415; 80048; 81001; 81025; 82962; 85007; 85025; 85610; 85730; 96361; 96374; 96375; 99284; J1642; J2405; J7030

== ENCOUNTER 2019-02-09 08:36 | Inpatient (IN) | payer MEDICAID ==
[2019-02-09] MEDS ORDERED: HumuLIN R IV ONE ×3 (09:17→13:58)
[2019-02-09] MEDS ORDERED: NACL 0.9% 1000 ML 1,000 ML IV ONE ×3 (09:17→12:11)
[2019-02-09 09:50] LABS: Bilirubin,Urine NEG (Negative); Blood,Urine NEG (Negative); Color,Urine Straw (Yellow); Protein,Urine <15 mg/dL mg/dL (Negative); Urobilinogen,Urine < 2.0 mg/dL (<2.0)
[2019-02-09] MEDS ORDERED: FLORINEF PO NR (09:52)
[2019-02-09] MEDS ORDERED: CORTEF PO ONE (09:52)
[2019-02-09] MEDS ORDERED: ZOFRAN IV ONE (10:17)
[2019-02-09 10:33] LABS: Basophils # (Auto) 0.1 K/mm3 (0.0-0.1); Basophils % (Auto) 1.3 % (0.0-1.8); Eosinophils # (Auto) 0.3 K/mm3 (0.0-0.4); Hematocrit 33.9 % (30.3-42.9); Lymphocytes # (Auto) 3.3 K/mm3 (1.2-5.4); Lymphocytes % (Auto) 54.1 % (13.4-35.0); Mean Corpuscular HGB Conc 32 % (30-34); Mean Corpuscular Volume 85 fl (79-97); Monocytes # (Auto) 0.2 K/mm3 (0.0-0.8); Monocytes % (Auto) 3.6 % (0.0-7.3); Platelet Count 190 K/mm3 (140-440)
[2019-02-09 10:57] LABS: Albumin 3.7 g/dL (3.9-5); Calcium 9.2 mg/dL (8.4-10.2)
--- NOTE | 2019-02-09 11:08 | Emergency Department Report ---
ED General Adult HPI - General Chief complaint: Hyperglycemia Stated complaint: HYPERGLYCEMIA Time Seen by Provider: 02/09/19 09:14 Source: patient, EMS, old records reviewed Mode of arrival: Stretcher Limitations: No Limitations - History of Present Illness Initial comments: 28 year old female with a past medical history of diabetes on insulin, renal i nsufficiency, seizures, previous cholecystectomy, 4, and Lincroft's disease. This is a Hospital complains of uncontrolled glucose 2 days. Glucose has been high for the past 2 days despite being compliant with her medication. Patient takes Tasiba 8 units every morning and Humalog sliding scale. 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 She reports increased urinary frequency but denies pain, abdominal pain, nausea, vomiting, diarrhea, fever, or dysuria. Patient was recently here on January 28 hypoglycemia. Patient has had recurrent visits to the ER hyperglycemia and DKA. Patient complains of total body burning sensation. Severity scale (0 -10): 5 - Related Data Home Medications Medication Instructions Recorded Confirmed Last Taken Levothyroxine Sodium [Synthroid] 125 mcg PO DAILY 09/23/18 01/28/19 01/27/19 Fludrocortisone [Florinef] 0.1 mg PO QAM 01/28/19 01/28/19 01/27/19 Hydrocortisone [Cortef TAB] 5 mg PO QHS 01/28/19 01/28/19 01/27/19 Hydrocortisone [Cortef TAB] 10 mg PO QAM 01/28/19 01/28/19 01/27/19 Insulin Degludec [Tresiba 8 units SUB-Q QAM 01/28/19 01/28/19 01/26/19 Flextouch U-100] Lispro Insulin [HumaLOG] 1 dose SUB-Q AC PRN 01/28/19 01/28/19 01/26/19 Sertraline [Zoloft] 25 mg PO QDAY 01/28/19 01/28/19 01/27/19 Previous Rx's Medication Instructions Recorded Last Taken Type levETIRAcetam [Keppra TAB] 500 mg PO BID #60 tablet 10/26/18 01/27/19 Rx Allergies Allergy/AdvReac Type Severity Reaction Status Date / Time Penicillins Allergy Angioedema Verified 12/31/18 16:01 vortioxetine Allergy Unknown Verified 12/31/18 16:01 [From Trintellix] ziprasidone [From Geodon] Allergy Angioedema Verified 12/31/18 16:01 vancomycin AdvReac Itching Verified 12/31/18 16:01 ED Review of Systems ROS: Stated complaint: HYPERGLYCEMIA Other details as noted in HPI Comment: All other systems reviewed and negative ED Past Medical Hx - Past Medical History Previous Medical History?: Yes Hx Congestive Heart Failure: No Hx Diabetes: Yes Hx Renal Disease: Yes (Stage 2) Hx Seizures: Yes Hx Asthma: No Hx COPD: No Additional medical history: hypotension, hypothyroidism, Lincroft's disease, Depression - Surgical History Hx Cholecystectomy: Yes Hx Appendectomy: Yes Additional Surgical History: 4. port right chest wall - Social History Smoking Status: Never Smoker Substance Use Type: None - Medications Home Medications: Home Medications Medication Instructions Recorded Confirmed Last Taken Type Levothyroxine Sodium [Synthroid] 125 mcg PO DAILY 09/23/18 01/28/19 01/27/19 History levETIRAcetam [Keppra TAB] 500 mg PO BID #60 tablet 10/26/18 01/28/19 01/27/19 Rx Fludrocortisone [Florinef] 0.1 mg PO QAM 01/28/19 01/28/19 01/27/19 History Hydrocortisone [Cortef TAB] 5 mg PO QHS 01/28/19 01/28/19 01/27/19 History Hydrocortisone [Cortef TAB] 10 mg PO QAM 01/28/19 01/28/19 01/27/19 History Insulin Degludec [Tresiba 8 units SUB-Q QAM 01/28/19 01/28/19 01/26/19 History Flextouch U-100] Lispro Insulin [HumaLOG] 1 dose SUB-Q AC PRN 01/28/19 01/28/19 01/26/19 History Sertraline [Zoloft] 25 mg PO QDAY 01/28/19 01/28/19 01/27/19 History ED Physical Exam - General Limitations: No Limitations - Other Other exam information: General: No limitations, patient is alert in no acute distress Head exam: Atraumatic, normocephalic Eyes exam: Normal appearance, pupils equal reactive to light, extraocular movements intact ENT: Moist mucous membrane Neck exam: Normal inspection, full range of motion, no meningismus nontender Respiratory exam: Clear to auscultation bilateral, no wheezes, rales, crackles Cardiovascular: Normal rate and rhythm, normal heart sounds. Port to chest wall Abdomen: Soft, nondistended, and nontender, with normal bowel sounds, no rebound, or guarding Extremity: Full range of motion normal inspection no deformity Back: Normal Inspection, full range of motion, no tenderness Neurologic: Alert, oriented x3, cranial nerves intact, no motor or sensory deficit Psychiatric: normal affect, normal mood Skin: Warm, dry, intact ED Course Vital Signs 02/09/19 02/09/19 02/09/19 09:07 11:10 12:30 Temperature 98.2 F Pulse Rate 78 76 76 Respiratory 15 17 17 Rate Blood Pressure 104/73 Blood Pressure 104/73 91/62 93/63 [Right] O2 Sat by Pulse 97 99 99 Oximetry 02/09/19 13:39 Temperature Pulse Rate 80 Respiratory Rate Blood Pressure Blood Pressure 96/60 [Right] O2 Sat by Pulse Oximetry - Reevaluation(s) Reevaluation #1: 02/09/19 Patient did develop nausea and vomiting in the ED and received Zoan ED Medical Decision Making - Lab Data Result diagrams: 02/09/19 10:20 02/09/19 10:20 Lab Results 02/09/19 02/09/19 02/09/19 Range/Units 09:24 09:40 10:20 WBC 6.2 (4.5-11.0) K/mm3 RBC 4.00 (3.65-5.03) M/mm3 Hgb 11.0 (10.1-14.3) gm/dl Hct 33.9 (30.3-42.9) % MCV 85 (79-97) fl MCH 27 L (28-32) pg MCHC 32 (30-34) % RDW 18.0 H (13.2-15.2) % Plt Count 190 (140-440) K/mm3 Lymph % (Auto) 54.1 H (13.4-35.0) % Pike % (Auto) 3.6 (0.0-7.3) % Eos % (Auto) 5.0 H (0.0-4.3) % Baso % (Auto) 1.3 (0.0-1.8) % Lymph # 3.3 (1.2-5.4) K/mm3 Pike # 0.2 (0.0-0.8) K/mm3 Eos # 0.3 (0.0-0.4) K/mm3 Baso # 0.1 (0.0-0.1) K/mm3 Seg Neutrophils % 36.0 L (40.0-70.0) % Seg Neutrophils # 2.2 (1.8-7.7) K/mm3 Sodium (137-145) mmol/L Potassium (3.6-5.0) mmol/L Chloride (98-107) mmol/L Carbon Dioxide (22-30) mmol/L Anion Gap mmol/L BUN (7-17) mg/dL Creatinine (0.7-1.2) mg/dL Estimated GFR ml/min BUN/Creatinine Ratio % Glucose (65-100) mg/dL POC Glucose > 500 H (70-105) Calcium (8.4-10.2) mg/dL Total Bilirubin (0.1-1.2) mg/dL AST (5-40) units/L ALT (7-56) units/L Alkaline Phosphatase (35-129) units/L Total Protein (6.3-8.2) g/dL Albumin (3.9-5) g/dL Albumin/Globulin Ratio % Lipase (13-60) units/L HCG, Qual (Negative) Urine Color Straw (Yellow) Urine Turbidity Clear (Clear) Urine pH 6.0 (5.0-7.0) Ur Specific [place] 1.022 (1.003-1.030) Urine Protein <15 mg/dl (Negative) mg/dL Urine Glucose (UA) >=500 (Negative) mg/dL Urine Ketones Neg (Negative) mg/dL Urine Blood Neg (Negative) Urine Nitrite Neg (Negative) Urine Bilirubin Neg (Negative) Urine Urobilinogen < 2.0 (<2.0) mg/dL Ur Leukocyte Esterase Tr (Negative) Urine WBC (Auto) 4.0 (0.0-6.0) /HPF Urine RBC (Auto) 2.0 (0.0-6.0) /HPF Plasma/Serum Alcohol (0-0.07) % 08/06/1802/09/19 02/09/19 Range/Units 10:20 10:20 11:32 WBC (4.5-11.0) K/mm3 RBC (3.65-5.03) M/mm3 Hgb (10.1-14.3) gm/dl Hct (30.3-42.9) % MCV (79-97) fl MCH (28-32) pg MCHC (30-34) % RDW (13.2-15.2) % Plt Count (140-440) K/mm3 Lymph % (Auto) (13.4-35.0) % Pike % (Auto) (0.0-7.3) % Eos % (Auto) (0.0-4.3) % Baso % (Auto) (0.0-1.8) % Lymph # (1.2-5.4) K/mm3 Pike # (0.0-0.8) K/mm3 Eos # (0.0-0.4) K/mm3 Baso # (0.0-0.1) K/mm3 Seg Neutrophils % (40.0-70.0) % Seg Neutrophils # (1.8-7.7) K/mm3 Sodium 126 L (137-145) mmol/L Potassium 4.3 (3.6-5.0) mmol/L Chloride 85.9 L (98-107) mmol/L Carbon Dioxide 28 (22-30) mmol/L Anion Gap 16 mmol/L BUN 11 (7-17) mg/dL Creatinine 1.8 H (0.7-1.2) mg/dL Estimated GFR 34 ml/min BUN/Creatinine Ratio 6 % Glucose 913 H* (65-100) mg/dL POC Glucose > 500 H (70-105) Calcium 9.2 (8.4-10.2) mg/dL Total Bilirubin 0.40 (0.1-1.2) mg/dL AST 248 H (5-40) units/L ALT 168 H (7-56) units/L Alkaline Phosphatase 176 H (35-129) units/L Total Protein 6.6 (6.3-8.2) g/dL Albumin 3.7 L (3.9-5) g/dL Albumin/Globulin Ratio 1.3 % Lipase 35 (13-60) units/L HCG, Qual Negative (Negative) Urine Color (Yellow) Urine Turbidity (Clear) Urine pH (5.0-7.0) Ur Specific [place] (1.003-1.030) Urine Protein (Negative) mg/dL Urine Glucose (UA) (Negative) mg/dL Urine Ketones (Negative) mg/dL Urine Blood (Negative) Urine Nitrite (Negative) Urine Bilirubin (Negative) Urine Urobilinogen (<2.0) mg/dL Ur Leukocyte Esterase (Negative) Urine WBC (Auto) (0.0-6.0) /HPF Urine RBC (Auto) (0.0-6.0) /HPF Plasma/Serum Alcohol (0-0.07) % 02/09/19 02/09/19 Range/Units 13:28 13:41 WBC (4.5-11.0) K/mm3 RBC (3.65-5.03) M/mm3 Hgb (10.1-14.3) gm/dl Hct (30.3-42.9) % MCV (79-97) fl MCH (28-32) pg MCHC (30-34) % RDW (13.2-15.2) % Plt Count (140-440) K/mm3 Lymph % (Auto) (13.4-35.0) % Pike % (Auto) (0.0-7.3) % Eos % (Auto) (0.0-4.3) % Baso % (Auto) (0.0-1.8) % Lymph # (1.2-5.4) K/mm3 Pike # (0.0-0.8) K/mm3 Eos # (0.0-0.4) K/mm3 Baso # (0.0-0.1) K/mm3 Seg Neutrophils % (40.0-70.0) % Seg Neutrophils # (1.8-7.7) K/mm3 Sodium (137-145) mmol/L Potassium (3.6-5.0) mmol/L Chloride (98-107) mmol/L Carbon Dioxide (22-30) mmol/L Anion Gap mmol/L BUN (7-17) mg/dL Creatinine (0.7-1.2) mg/dL Estimated GFR ml/min BUN/Creatinine Ratio % Glucose (65-100) mg/dL POC Glucose 418 H (70-105) Calcium (8.4-10.2) mg/dL Total Bilirubin (0.1-1.2) mg/dL AST (5-40) units/L ALT (7-56) units/L Alkaline Phosphatase (35-129) units/L Total Protein (6.3-8.2) g/dL Albumin (3.9-5) g/dL Albumin/Globulin Ratio % Lipase (13-60) units/L HCG, Qual (Negative) Urine Color (Yellow) Urine Turbidity (Clear) Urine pH (5.0-7.0) Ur Specific [place] (1.003-1.030) Urine Protein (Negative) mg/dL Urine Glucose (UA) (Negative) mg/dL Urine Ketones (Negative) mg/dL Urine Blood (Negative) Urine Nitrite (Negative) Urine Bilirubin (Negative) Urine Urobilinogen (<2.0) mg/dL Ur Leukocyte Esterase (Negative) Urine WBC (Auto) (0.0-6.0) /HPF Urine RBC (Auto) (0.0-6.0) /HPF Plasma/Serum Alcohol < 0.01 (0-0.07) % - Medical Decision Making Patient has significant elevated hyperglycemia without DKA. He does have chronic respiratory insufficiency. Patient requiring multiple boluses of insulin IV fluids for glucose reduction. Will be admitted to the hospital for further treatment. - Differential Diagnosis DKA, infection, UTI, hypoglycemia, medication noncompliance Critical Care Time: No Critical care attestation.: If time is entered above; I have spent that time in minutes in the direct care of this critically ill patient, excluding procedure time. ED Disposition Clinical Impression: CRI (chronic renal insufficiency), Lincroft's disease, Uncontrolled diabetes mellitus, Hyperglycemia, Vomiting Disposition: -09 OP ADMIT IP TO THIS HOSP Is pt being admited?: Yes Condition: Stable Time of Disposition: 12:08 (dr alexandre/hosp)
[2019-02-09] MEDS ORDERED: MORPHINE IV ONE (12:06)
[2019-02-09] MEDS ORDERED: SODIUM CHLORIDE FLUSH SYRINGE 10 ML IV PRN (15:06)
[2019-02-09] MEDS ORDERED: PROVENTIL IH PRN (15:06)
--- NOTE | 2019-02-09 15:11 | History and Physical Report ---
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 Pt states that she experienced high glucose levels over the past 2 days. Pt states that she has not been able to control her blood glucose levels. Pt acknowledges generalized weakness, elevated serum glucose levels, multiple episodes of nausea. EMS notified, and upon arrival the patient was found to be in distress and transported to [facility]. Pt seen and evaluated in ED and found to have Hyperglycemic Hyperosmolar Nonketotic State, Acidosis, Hyponatremia, Hypokalemia. Pt admitted to [facility] and treated with supportive care. Pt symptoms improved with insulin therapy. Pt denies fever, chills, CP, Palpitations, NVD, Trauma, Productive cough, Skin rash, recent ill contacts, BRBPR, skin rash. Prior admission on 12/31/18 reviewed. All listed medication reconciled at time of admission. Past History Past Medical History: diabetes, hypothyroidism, seizures, other (Addisons dis ease, Depression) Past Surgical History: appendectomy, cholecystectomy, Other (Port placement) Social history: single. denies: smoking, alcohol abuse, prescription drug abuse Family history: diabetes, hypertension Medications and Allergies Allergies Allergy/AdvReac Type Severity Reaction Status Date / Time Penicillins Allergy Angioedema Verified 12/31/18 16:01 vortioxetine Allergy Unknown Verified 12/31/18 16:01 [From Trintellix] ziprasidone [From Geodon] Allergy Angioedema Verified 12/31/18 16:01 vancomycin AdvReac Itching Verified 12/31/18 16:01 Home Medications Medication Instructions Recorded Confirmed Last Taken Type Levothyroxine Sodium [Synthroid] 125 mcg PO DAILY 09/23/18 01/28/19 01/27/19 History levETIRAcetam [Keppra TAB] 500 mg PO BID #60 tablet 10/26/18 01/28/19 01/27/19 Rx Fludrocortisone [Florinef] 0.1 mg PO QAM 01/28/19 01/28/19 01/27/19 History Hydrocortisone [Cortef TAB] 5 mg PO QHS 01/28/19 01/28/19 01/27/19 History Hydrocortisone [Cortef TAB] 10 mg PO QAM 01/28/19 01/28/19 01/27/19 History Insulin Degludec [Tresiba 8 units SUB-Q QAM 01/28/19 01/28/19 01/26/19 History Flextouch U-100] Lispro Insulin [HumaLOG] 1 dose SUB-Q AC PRN 01/28/19 01/28/19 01/26/19 History Sertraline [Zoloft] 25 mg PO QDAY 01/28/19 01/28/19 01/27/19 History Active Meds: Active Medications Albuterol (Proventil) 2.5 mg IH Q3HRT PRN PRN Reason: Shortness Of Breath Fludrocortisone Acetate (Florinef) 0.1 mg PO QAM MARINO Hydrocortisone Acetate (Cortef) 5 mg PO QHS MARINO Hydrocortisone Acetate (Cortef) 10 mg PO QAM MARINO Levetiracetam (Keppra) 500 mg PO BID MARINO Levothyroxine Sodium (Synthroid) 125 mcg PO DAILY MARINO Miscellaneous Medication (Insulin Degludec) 8 units SUB-Q QAM MARINO Sertraline HCl (Zoloft) 25 mg PO QDAY MARINO Sodium Chloride (Sodium Chloride Flush Syringe 10 Ml) 10 ml IV BID MARINO Sodium Chloride (Sodium Chloride Flush Syringe 10 Ml) 10 ml IV PRN PRN PRN Reason: LINE FLUSH Review of Systems Constitutional: other (High glucose levels), no weight loss, no weight gain, no fever, no chills Ears, nose, mouth and throat: no ear pain, no ear discharge, no tinnitis, no decreased hearing, no nose pain, no nasal congestion Breasts: no change in shape, no swelling, no mass Cardiovascular: no chest pain, no orthopnea, no rapid/irregular heart beat, no syncope, no lightheadedness Respiratory: no cough, no hemoptysis, no shortness of breath Gastrointestinal: nausea, no abdominal pain, no diarrhea, no constipation, no change in bowel habits, no coffee ground emesis, no BRBPR, no hematochezia, no loss of appetite, no early satiety, no heartburn Genitourinary Female: no pelvic pain, no flank pain, no dysuria, no urinary frequency, no stress incontinence, no post void dribbling, no incomplete emptying Menstruation: no currently menstrual, no premenarcheal, no post hysterectomy, no ammenorrhea, no period normal, no period heavy, no period spotting Rectal: no pain, no incontinence, no bleeding Musculoskeletal: no neck stiffness, no neck pain, no arm numbness/tingling, no low back pain, no shooting leg pain Integumentary: no rash, no pruritis, no redness, no sores, no wounds, no jaundice Neurological: no head injury, no transient paralysis, no paralysis, no parathesias, no tingling, no seizures, no syncope, no ataxia Psychiatric: no anxiety, no memory loss, no change in sleep habits, no change in appetite, no suicidal ideation, no disorientation, no difficulties concentrating, no confusion, no irritability Endocrine: no cold intolerance, no heat intolerance, no polyphagia, no polydipsia, no proptosis, no thyroid mass, no high blood sugars Hematologic/Lymphatic: no easy bruising, no lymphadenopathy Allergic/Immunologic: no wheezing, no angioedema Exam - Constitutional Vitals: Temp Pulse Resp BP Pulse Ox 98.2 F 80 17 96/60 99 02/09/19 09:07 02/09/19 13:39 02/09/19 12:30 02/09/19 13:39 02/09/19 12:30 General appearance: Present: mild distress - EENT Eyes: Present: PERRL ENT: hearing intact, clear oral mucosa - Neck Neck: Present: supple, normal ROM - Respiratory Respiratory effort: normal Respiratory: bilateral: CTA - Cardiovascular Heart Sounds: Present: S1 & S2. Absent: rub, click - Extremities Extremities: pulses symmetrical, No edema Peripheral Pulses: within normal limits - Abdominal General gastrointestinal: Present: soft, non-tender, non-distended, normal bowel sounds Female genitourinary: Present: normal - Integumentary Integumentary: Present: clear, warm, dry - Musculoskeletal Musculoskeletal: gait normal, strength equal bilaterally - Psychiatric Psychiatric: appropriate mood/affect, intact judgment & insight - Neurologic Neurologic: CNII-XII intact, moves all extremities Results - Labs CBC & Chem 7: 02/09/19 10:20 02/09/19 10:20 Labs: Abnormal lab results 02/09/19 02/09/19 02/09/19 Range/Units 09:24 10:20 10:20 MCH 27 L (28-32) pg RDW 18.0 H (13.2-15.2) % Lymph % (Auto) 54.1 H (13.4-35.0) % Eos % (Auto) 5.0 H (0.0-4.3) % Seg Neutrophils % 36.0 L (40.0-70.0) % Sodium 126 L (137-145) mmol/L Chloride 85.9 L (98-107) mmol/L Creatinine 1.8 H (0.7-1.2) mg/dL Glucose 913 H* (65-100) mg/dL POC Glucose > 500 H (70-105) AST 248 H (5-40) units/L ALT 168 H (7-56) units/L Alkaline Phosphatase 176 H (35-129) units/L Albumin 3.7 L (3.9-5) g/dL 02/09/19 02/09/19 Range/Units 11:32 13:41 MCH (28-32) pg RDW (13.2-15.2) % Lymph % (Auto) (13.4-35.0) % Eos % (Auto) (0.0-4.3) % Seg Neutrophils % (40.0-70.0) % Sodium (137-145) mmol/L Chloride (98-107) mmol/L Creatinine (0.7-1.2) mg/dL Glucose (65-100) mg/dL POC Glucose > 500 H 418 H (70-105) AST (5-40) units/L ALT (7-56) units/L Alkaline Phosphatase (35-129) units/L Albumin (3.9-5) g/dL Assessment and Plan - Patient Problems (1) Uncontrolled type 2 diabetes mellitus with hyperosmolar nonketotic hyperglycemia Current Visit: Yes Status: Acute Plan to address problem: ADA diet, Insulin, accu check, IVF resuscitation therapy, hypoglycemia protocol, (2) BRANDEE (acute kidney injury) Current Visit: Yes Status: Acute Plan to address problem: IVF resuscitation therapy, monitor uop q shift, serial bmp, monitor serum creatnine (3) Dante's disease Current Visit: Yes Status: Acute Plan to address problem: continue steroid therapy, IVf resuscitation therapy, monitor BP q shift, (4) Hypothyroid Current Visit: Yes Status: Acute Qualifiers: Hypothyroidism type: unspecified Qualified Code(s): E03.9 - Hypothyroidism, unspecified Plan to address problem: Continue synthroid therapy, supportive care. (5) Seizure Current Visit: Yes Status: Acute Plan to address problem: continue keppra therapy, neuro checks, seizure precautions. (6) DVT prophylaxis Current Visit: Yes Status: Acute Plan to address problem: SCD to BLE while in bed, Pt ambulatory
[2019-02-09] MEDS ORDERED: D50W (25GM) Syringe IV ONE ×6 (16:04→22:57)
[2019-02-09] MEDS: NACL 0.9% 1000 ML 1,000 ML IV SCH (18:45)
[2019-02-09] MEDS: ZOFRAN IV PRN ×2 (18:45→23:22)
[2019-02-09] MEDS ORDERED: ZOFRAN ONE (18:49)
[2019-02-09] MEDS ORDERED: NACL 0.9% 1000 ML 1,000 ML ONE (18:50)
[2019-02-09] MEDS: KEPPRA PO SCH (22:00)
[2019-02-09] MEDS: SODIUM CHLORIDE FLUSH SYRINGE 10 ML IV SCH (22:10)
[2019-02-09] MEDS ORDERED: D50W (25GM) Syringe IV PRN ×2 (22:27→23:48)
[2019-02-09] MEDS: D50W (25GM) Syringe IV PRN (22:45)
[2019-02-09] MEDS: CORTEF PO SCH (22:59)
[2019-02-09] MEDS: PERCOCET 5/325 PO PRN (23:39)
[2019-02-10] MEDS ORDERED: HumuLIN R ONE (00:08)
[2019-02-10] MEDS: HumuLIN R SUB-Q SCH ×8 (00:12→23:52)
[2019-02-10] MEDS: NACL 0.9% 1000 ML 1,000 ML IV SCH ×2 (02:19→12:20)
[2019-02-10 05:26] LABS: Basophils % (Auto) 0.7 % (0.0-1.8); Eosinophils % (Auto) 0.7 % (0.0-4.3); Hematocrit 27.7 % (30.3-42.9); Hemoglobin 9.4 gm/dl (10.1-14.3); Lymphocytes # (Auto) 2.3 K/mm3 (1.2-5.4); Lymphocytes % (Auto) 39.8 % (13.4-35.0); Mean Corpuscular HGB Conc 34 % (30-34); Mean Corpuscular Volume 83 fl (79-97); Monocytes # (Auto) 0.1 K/mm3 (0.0-0.8); Monocytes % (Auto) 2.3 % (0.0-7.3); Platelet Count 162 K/mm3 (140-440); Red Blood Count 3.35 M/mm3 (3.65-5.03); Red Cell Distribution Width 17.5 % (13.2-15.2)
[2019-02-10 05:46] LABS: Calcium 7.6 mg/dL (8.4-10.2)
[2019-02-10] MEDS: SYNTHROID PO SCH (06:05)
[2019-02-10] MEDS ORDERED: D50W (25GM) Syringe IV ONE (08:58)
[2019-02-10] MEDS: SODIUM CHLORIDE FLUSH SYRINGE 10 ML IV SCH ×2 (10:00→23:54)
[2019-02-10] MEDS: KEPPRA PO SCH ×2 (10:00→23:53)
[2019-02-10] MEDS: LANTUS SUB-Q SCH (10:00)
[2019-02-10] MEDS: ZOLOFT PO SCH (10:00)
[2019-02-10] MEDS: FLORINEF PO SCH (10:00)
[2019-02-10] MEDS ORDERED: INSULIN DEGLUDEC 8 UNIT SUB-Q SCH (10:00)
[2019-02-10] MEDS: CORTEF PO SCH ×2 (10:00→23:53)
[2019-02-10] MEDS: TYLENOL PO PRN ×2 (10:59→21:13)
[2019-02-10] MEDS: D50W (25GM) Syringe IV PRN ×2 (11:25→21:15)
--- NOTE | 2019-02-10 11:50 | Progress Note ---
Assessment and Plan Assessment and plan: -- Uncontrolled type 2 diabetes mellitus with hyperosmolar nonketotic hyperglycemia Current Visit: Yes Status: Acute Plan to address problem: Blood sugars reasonable level , Accu-Chek sliding scale coverage ADA diet, Long-acting insulin as needed patient's hemoglobin A1c in November 2018 is >12 --BRANDEE (acute kidney injury) Current Visit: Yes Status: Acute Plan to address problem: IVF resuscitation therapy, monitor uop q shift, serial bmp, monitor serum creatnine -- H/O Dante's disease Current Visit: Yes Status: Acute Plan to address problem: continue steroid therapy, IVf resuscitation therapy, monitor BP q shift, -- Hypothyroid Current Visit: Yes Status: Acute Plan to address problem: Continue synthroid therapy, supportive care. --H/O Seizure Current Visit: Yes Status: Acute Plan to address problem: continue keppra therapy, neuro checks, seizure precautions. --DVT prophylaxis Current Visit: Yes Status: Acute Plan to address problem: SCD to BLE while in bed, Pt ambulatory Monitor closely and adjust management as needed Patient is stable to be transferred out of ICU to medical floor Disposition; possible discharge in 1-2 days if stable History Interval history: Patient seen and examined in ICU this morning medical records reviewed Patient was admitted with hyperglycemia Blood sugars are reasonable level today Patient is known to our service multiple admissions in the past labile blood sugars Medical noncompliance, chronic hypotension Patient denies any chest pain shortness of breath dizziness or weakness Vital signs reviewed Hospitalist Physical - Constitutional Vitals: Temp Pulse Resp BP Pulse Ox 95.6 F L 56 L 9 L 83/61 100 02/10/19 08:00 02/10/19 10:40 02/10/19 10:40 02/10/19 10:40 02/10/19 10:40 General appearance: Present: mild distress, well-nourished, obese - EENT Eyes: Present: PERRL, EOM intact - Neck Neck: Present: supple, normal ROM - Respiratory Respiratory effort: normal Respiratory: bilateral: diminished, negative: rales, rhonchi, wheezing - Cardiovascular Rhythm: regular Heart Sounds: Present: S1 & S2 - Extremities Extremities: no ischemia, No edema - Abdominal General gastrointestinal: soft, non-tender, non-distended, normal bowel sounds - Integumentary Integumentary: Present: clear, warm - Psychiatric Psychiatric: appropriate mood/affect, cooperative - Neurologic Neurologic: CNII-XII intact, moves all extremities Results - Labs CBC & Chem 7: 02/10/19 05:15 02/10/19 05:15 Labs: Laboratory Last Values WBC 5.8 K/mm3 (4.5-11.0) 02/10/19 05:15 RBC 3.35 M/mm3 (3.65-5.03) L 02/10/19 05:15 Hgb 9.4 gm/dl (10.1-14.3) L 02/10/19 05:15 Hct 27.7 % (30.3-42.9) L D 02/10/19 05:15 MCV 83 fl (79-97) 02/10/19 05:15 MCH 28 pg (28-32) 02/10/19 05:15 MCHC 34 % (30-34) 02/10/19 05:15 RDW 17.5 % (13.2-15.2) H 02/10/19 05:15 Plt Count 162 K/mm3 (140-440) 02/10/19 05:15 Lymph % (Auto) 39.8 % (13.4-35.0) H 02/10/19 05:15 [place] % (Auto) 2.3 % (0.0-7.3) 02/10/19 05:15 Eos % (Auto) 0.7 % (0.0-4.3) 02/10/19 05:15 Baso % (Auto) 0.7 % (0.0-1.8) 02/10/19 05:15 Lymph # 2.3 K/mm3 (1.2-5.4) 02/10/19 05:15 [place] # 0.1 K/mm3 (0.0-0.8) 02/10/19 05:15 Eos # 0.0 K/mm3 (0.0-0.4) 02/10/19 05:15 Baso # 0.0 K/mm3 (0.0-0.1) 02/10/19 05:15 Seg Neutrophils % 56.5 % (40.0-70.0) 02/10/19 05:15 Seg Neutrophils # 3.3 K/mm3 (1.8-7.7) 02/10/19 05:15 VBG pH 7.358 (7.320-7.420) 02/09/19 Unknown Sodium 139 mmol/L (137-145) D 02/10/19 05:15 Potassium 3.9 mmol/L (3.6-5.0) 02/10/19 05:15 Chloride 105.7 mmol/L (98-107) 02/10/19 05:15 Carbon Dioxide 25 mmol/L (22-30) 02/10/19 05:15 12 mmol/L 02/10/19 05:15 BUN 7 mg/dL (7-17) 02/10/19 05:15 1.3 mg/dL (0.7-1.2) H 02/10/19 05:15 Estimated GFR 49 ml/min 02/10/19 05:15 5 % 02/10/19 05:15 Glucose 159 mg/dL (65-100) H 02/10/19 05:15 POC Glucose < 40 (70-105) L 02/10/19 08:57 Calcium 7.6 mg/dL (8.4-10.2) L D 02/10/19 05:15 0.40 mg/dL (0.1-1.2) 02/09/19 10:20 AST 248 units/L (5-40) H 02/09/19 10:20 ALT 168 units/L (7-56) H 02/09/19 10:20 176 units/L (35-129) H 02/09/19 10:20 6.6 g/dL (6.3-8.2) 02/09/19 10:20 3.7 g/dL (3.9-5) L 02/09/19 10:20 1.3 % 02/09/19 10:20 35 units/L (13-60) 02/09/19 10:20 HCG, Qual Negative (Negative) 02/09/19 10:20 Straw (Yellow) 02/09/19 09:40 Clear (Clear) 02/09/19 09:40 6.0 (5.0-7.0) 02/09/19 09:[address] 1.022 (1.003-1.030) 02/09/19 09:40 <15 mg/dl mg/dL (Negative) 02/09/19 09:40 >=500 mg/dL (Negative) 02/09/19 09:40 Neg mg/dL (Negative) 02/09/19 09:40 Neg (Negative) 02/09/19 09:40 Neg (Negative) 02/09/19 09:40 Neg (Negative) 02/09/19 09:40 < 2.0 mg/dL (<2.0) 02/09/19 09:40 Ur Leukocyte Esterase Tr (Negative) 02/09/19 09:40 4.0 /HPF (0.0-6.0) 02/09/19 09:40 2.0 /HPF (0.0-6.0) 02/09/19 09:40 Plasma/Serum Alcohol < 0.01 % (0-0.07) 02/09/19 13:28 Active Medications - Current Medications Current Medications: Generic Name Dose Route Start Last Admin Trade Name Freq PRN Reason Stop Dose Admin Acetaminophen 650 mg 02/09/19 22:31 02/10/19 10:59 Tylenol PO 650 mg Q4H PRN Administration Pain, Mild (1-3), fever >100.5 Albuterol 2.5 mg 02/09/19 15:06 Proventil IH Q3HRT PRN Shortness Of Breath Dextrose 50 ml 02/09/19 22:19 02/10/19 11:25 D50w (25gm) Syringe IV 50 ml PRN PRN Administration Hypoglycemia Fludrocortisone Acetate 0.1 mg 02/10/19 10:00 02/10/19 10:00 Florinef PO 0.1 mg QAM MARINO Administration Hydrocortisone Acetate 5 mg 02/09/19 22:00 02/09/19 22:59 Cortef PO 5 mg QHS MARINO Administration Hydrocortisone Acetate 10 mg 02/10/19 10:00 02/10/19 10:00 Cortef PO 10 mg QAM MARINO Administration Sodium Chloride 1,000 mls @ 100 mls/hr 02/09/19 16:00 02/10/19 02:19 Nacl 0.9% 1000 Ml IV 100 mls/hr DIRECT MARINO Administration Insulin Glargine 10 units 02/10/19 10:00 Lantus SUB-Q DAILY MARINO Insulin Human Regular 0 units 02/10/19 00:00 02/10/19 08:00 Humulin R SUB-Q Not Given Q2HR MARINO Protocol Levetiracetam 500 mg 02/09/19 22:00 02/10/19 10:00 Keppra PO 500 mg BID MARINO Administration Levothyroxine Sodium 125 mcg 02/10/19 06:00 02/10/19 06:05 Synthroid PO 125 mcg DAILY@0600 MARINO Administration Ondansetron HCl 4 mg 02/09/19 18:40 02/09/19 23:22 Zofran IV 4 mg Q4H PRN Administration Nausea And Vomiting Oxycodone/Acetaminophen 1 tab 02/09/19 22:31 02/09/19 23:39 Percocet 5/325 PO 1 tab Q6H PRN Administration Pain, Moderate (4-6) Sertraline HCl 25 mg 02/10/19 10:00 02/10/19 10:00 Zoloft PO 25 mg QDAY MARINO Administration Sodium Chloride 10 ml 02/09/19 22:00 02/10/19 10:00 Sodium Chloride Flush Syringe 10 Ml IV 10 ml BID MARINO Administration Sodium Chloride 10 ml 02/09/19 15:06 Sodium Chloride Flush Syringe 10 Ml IV PRN PRN LINE FLUSH
[2019-02-10] MEDS: ZOFRAN IV PRN (19:39)
[2019-02-11 05:23] LABS: Calcium 7.5 mg/dL (8.4-10.2)
[2019-02-11] MEDS: SYNTHROID PO SCH (05:34)
[2019-02-11] MEDS: NACL 0.9% 1000 ML 1,000 ML IV SCH ×2 (09:29→11:58)
[2019-02-11] MEDS: LANTUS SUB-Q SCH (09:31)
[2019-02-11] MEDS: HumuLIN R SUB-Q SCH ×4 (09:33→22:52)
--- NOTE | 2019-02-11 11:31 | Progress Note ---
Assessment and Plan Assessment and plan: --Episodes of hypoglycemia; patient has very labile blood sugars, with intermittent hypoglycemia Adjust insulin dose, encourage patient to comply with diet and regular meals -- Uncontrolled type 2 diabetes mellitus with hyperosmolar nonketotic hyperglycemia Current Visit: Yes Status: Acute Plan to address problem: Patient has very labile blood sugars Long-acting insulin as needed patient's hemoglobin A1c in November 2018 is >12 --BRANDEE (acute kidney injury): Vasomotor nephropathy Current Visit: Yes Status: Acute Plan to address problem: IVF resuscitation therapy, monitor uop q shift, serial bmp, monitor serum creatnine -- H/O Dante's disease Current Visit: Yes Status: Acute Plan to address problem: continue steroid therapy, IVf resuscitation therapy, monitor BP q shift, -- Hypothyroid Current Visit: Yes Status: Acute Plan to address problem: Continue synthroid therapy, supportive care. --H/O Seizure Current Visit: Yes Status: Acute Plan to address problem: continue keppra therapy, neuro checks, seizure precautions. --DVT prophylaxis Current Visit: Yes Status: Acute Plan to address problem: SCD to BLE while in bed, Pt ambulatory Monitor closely and adjust management as needed Patient is stable to be transferred out of ICU to medical floor Disposition; possible discharge in 1-2 days if stable History Interval history: Patient seen and examined medical records reviewed Patient has labile blood sugars Mild hypertension Patient has no new complaints Vital signs noted Hospitalist Physical - Constitutional Vitals: Temp Pulse Resp BP Pulse Ox 97.5 F L 89 18 80/42 97 02/11/19 05:08 02/11/19 06:10 02/11/19 05:08 02/11/19 06:10 02/11/19 06:10 General appearance: Present: no acute distress, well-nourished, obese - EENT Eyes: Present: PERRL, EOM intact - Neck Neck: Present: supple, normal ROM - Respiratory Respiratory effort: normal Respiratory: bilateral: diminished, negative: rales, rhonchi, wheezing - Cardiovascular Rhythm: regular Heart Sounds: Present: S1 & S2 - Extremities Extremities: no ischemia, No edema - Abdominal General gastrointestinal: soft, non-tender, non-distended, normal bowel sounds - Integumentary Integumentary: Present: clear, warm - Psychiatric Psychiatric: appropriate mood/affect, cooperative - Neurologic Neurologic: moves all extremities Results - Labs CBC & Chem 7: 02/10/19 05:15 02/11/19 04:50 Labs: Laboratory Last Values WBC 5.8 K/mm3 (4.5-11.0) 02/10/19 05:15 RBC 3.35 M/mm3 (3.65-5.03) L 02/10/19 05:15 Hgb 9.4 gm/dl (10.1-14.3) L 02/10/19 05:15 Hct 27.7 % (30.3-42.9) L D 02/10/19 05:15 MCV 83 fl (79-97) 02/10/19 05:15 MCH 28 pg (28-32) 02/10/19 05:15 MCHC 34 % (30-34) 02/10/19 05:15 RDW 17.5 % (13.2-15.2) H 02/10/19 05:15 Plt Count 162 K/mm3 (140-440) 02/10/19 05:15 Lymph % (Auto) 39.8 % (13.4-35.0) H 02/10/19 05:15 [place] % (Auto) 2.3 % (0.0-7.3) 02/10/19 05:15 Eos % (Auto) 0.7 % (0.0-4.3) 02/10/19 05:15 Baso % (Auto) 0.7 % (0.0-1.8) 02/10/19 05:15 Lymph # 2.3 K/mm3 (1.2-5.4) 02/10/19 05:15 [place] # 0.1 K/mm3 (0.0-0.8) 02/10/19 05:15 Eos # 0.0 K/mm3 (0.0-0.4) 02/10/19 05:15 Baso # 0.0 K/mm3 (0.0-0.1) 02/10/19 05:15 Seg Neutrophils % 56.5 % (40.0-70.0) 02/10/19 05:15 Seg Neutrophils # 3.3 K/mm3 (1.8-7.7) 02/10/19 05:15 VBG pH 7.358 (7.320-7.420) 02/09/19 Unknown Sodium 144 mmol/L (137-145) 02/11/19 04:50 Potassium 4.1 mmol/L (3.6-5.0) 02/11/19 04:50 Chloride 109.5 mmol/L (98-107) H 02/11/19 04:50 Carbon Dioxide 25 mmol/L (22-30) 02/11/19 04:50 14 mmol/L 02/11/19 04:50 BUN 7 mg/dL (7-17) 02/11/19 04:50 1.4 mg/dL (0.7-1.2) H 02/11/19 04:50 Estimated GFR 45 ml/min 02/11/19 04:50 5 % 02/11/19 04:50 Glucose 53 mg/dL (65-100) L 02/11/19 04:50 POC Glucose 238 (70-105) H 02/11/19 07:50 Calcium 7.5 mg/dL (8.4-10.2) L 02/11/19 04:50 Phosphorus 3.40 mg/dL (2.5-4.5) 02/11/19 04:50 Magnesium 1.40 mg/dL (1.7-2.3) L 02/11/19 04:50 0.40 mg/dL (0.1-1.2) 02/09/19 10:20 AST 248 units/L (5-40) H 02/09/19 10:20 ALT 168 units/L (7-56) H 02/09/19 10:20 176 units/L (35-129) H 02/09/19 10:20 6.6 g/dL (6.3-8.2) 02/09/19 10:20 3.7 g/dL (3.9-5) L 02/09/19 10:20 1.3 % 02/09/19 10:20 35 units/L (13-60) 02/09/19 10:20 HCG, Qual Negative (Negative) 02/09/19 10:20 Straw (Yellow) 02/09/19 09:40 Clear (Clear) 02/09/19 09:40 6.0 (5.0-7.0) 02/09/19 09:40 Ur Specific [place] 1.022 (1.003-1.030) 02/09/19 09:40 <15 mg/dl mg/dL (Negative) 02/09/19 09:40 >=500 mg/dL (Negative) 02/09/19 09:40 Neg mg/dL (Negative) 02/09/19 09:40 Neg (Negative) 02/09/19 09:40 Neg (Negative) 02/09/19 09:40 Neg (Negative) 02/09/19 09:40 < 2.0 mg/dL (<2.0) 02/09/19 09:40 Ur Leukocyte Esterase Tr (Negative) 02/09/19 09:40 4.0 /HPF (0.0-6.0) 02/09/19 09:40 2.0 /HPF (0.0-6.0) 02/09/19 09:40 Plasma/Serum Alcohol < 0.01 % (0-0.07) 02/09/19 13:28 Active Medications - Current Medications Current Medications: Generic Name Dose Route Start Last Admin Trade Name Freq PRN Reason Stop Dose Admin Acetaminophen 650 mg 02/09/19 22:31 02/10/19 21:13 Tylenol PO 650 mg Q4H PRN Administration Pain, Mild (1-3), fever >100.5 Albuterol 2.5 mg 02/09/19 15:06 Proventil IH Q3HRT PRN Shortness Of Breath Dextrose 50 ml 02/09/19 22:19 02/10/19 21:15 D50w (25gm) Syringe IV 50 ml PRN PRN Administration Hypoglycemia Fludrocortisone Acetate 0.1 mg 02/10/19 10:00 02/10/19 10:00 Florinef PO 0.1 mg QAM MARINO Administration Hydrocortisone Acetate 5 mg 02/09/19 22:00 02/10/19 23:53 Cortef PO 5 mg QHS MARINO Administration Hydrocortisone Acetate 10 mg 02/10/19 10:00 02/10/19 10:00 Cortef PO 10 mg QAM MARINO Administration Sodium Chloride 1,000 mls @ 100 mls/hr 02/09/19 16:00 02/11/19 09:29 Nacl 0.9% 1000 Ml IV 100 mls/hr DIRECT MARINO Administration Sodium Chloride 250 mls @ 999 mls/hr 02/11/19 11:27 Nacl 0.9% 250ml IV 02/11/19 11:42 ONCE ONE Insulin Glargine 10 units 02/10/19 10:00 02/11/19 09:31 Lantus SUB-Q 10 units DAILY MARINO Administration Insulin Human Regular 0 units 02/10/19 16:30 02/11/19 09:33 Humulin R SUB-Q 3 units ACHS MARINO Administration Protocol Levetiracetam 500 mg 02/09/19 22:00 02/10/19 23:53 Keppra PO 500 mg BID MARINO Administration Levothyroxine Sodium 125 mcg 02/10/19 06:00 02/11/19 05:34 Synthroid PO 125 mcg DAILY@0600 MARINO Administration Ondansetron HCl 4 mg 02/09/19 18:40 02/10/19 19:39 Zofran IV 4 mg Q4H PRN Administration Nausea And Vomiting Oxycodone/Acetaminophen 1 tab 02/09/19 22:31 02/09/19 23:39 Percocet 5/325 PO 1 tab Q6H PRN Administration Pain, Moderate (4-6) Sertraline HCl 25 mg 02/10/19 10:00 02/10/19 10:00 Zoloft PO 25 mg QDAY MARINO Administration Sodium Chloride 10 ml 02/09/19 22:00 02/10/19 23:54 Sodium Chloride Flush Syringe 10 Ml IV 10 ml BID MARINO Administration Sodium Chloride 10 ml 02/09/19 15:06 Sodium Chloride Flush Syringe 10 Ml IV PRN PRN LINE FLUSH Nutrition/Malnutrition Assess - Dietary Evaluation Nutrition/Malnutrition Findings: Nutrition Notes Start: 02/10/19 14:51 Freq: Status: Active Protocol: Document 02/10/19 14:51 RM (Rec: 02/10/19 15:06 RM [email or web address]) Nutrition Notes Need for Assessment generated from: MD Order Current Diagnosis Acute Kidney Injury,Diabetes Other Pertinent Diagnosis [place]'s dz, Hypothyroidism Current Diet Cardiac/Consistent CHO Labs/Tests Reviewed Pertinent Medications Zofran Height 4 ft 11 in Weight 62.7 kg Usual Body Weight 59.09 kg [place] Body Weight (kg) 43.18 BMI 27.9 Subjective/Other Information Consulted for diet education. Screened for malnutrition. 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 Stated that she ate the half of her breakfast but did not eat the eggs d/t disliking them. Stated that her UBW is 130 lbs and that her weight has been stable. Pt stated that she is already familiar w/DM diet education. Stated that she recently learned that she has celiac dz and requested education. Gave brief review of diet education. Gave handout. No temporal or orbital wasting . Burn Absent Trauma Absent #2 Nutrition Diagnosis Food and nutrition-related knowledge deficit Etiology lack of prior education As Evidenced by Signs and Symptoms pt desire for education #1 Nutrition Diagnosis Inadequate oral intake Etiology decreased appetite As Evidenced by Signs and Symptoms pt statement that she ate half of her breakfast but did not eat the eggs d/t disliking them. Is patient on ventilator? No Is Patient Ambulatory and/or Out of Bed Yes REE-([facility]-ambulatory/OOB) [ 1641.419 [id number]] Calculation Used for Recommendations [facility] Additional Notes Protein Needs: 63-82g (1-1.3g/ kg) Fluid Needs: 1 ml/kcal Nutrition Intervention Change Diet Order: Continue current Add Supplement/Snack (indicate name/kcal Glucerna 1 daily /protein ) Provides kCal: 220 Provides Protein (gm) 10 Teaching Recipient Patient Learning Readiness Good Teaching Methods Discussion,Handout Response to Teaching Verbalize understanding Education Handouts Provided Celiac nutrition therapy Barriers to Learning No Barriers RD phone number provided Yes Patient aware of follow up options Yes Goal #1 Meet at least 75% of calorie and protein needs via PO and ONS intakes Anticipated Discharge Needs: Cardiac/Consistent CHO diet Follow-Up By: 02/13/19 Additional Comments Follow for PO and ONS intakes
[2019-02-11] MEDS: ZOFRAN IV PRN ×2 (11:56→18:31)
[2019-02-11] MEDS: CORTEF PO SCH ×2 (11:57→22:52)
[2019-02-11] MEDS: KEPPRA PO SCH ×2 (11:57→22:53)
[2019-02-11] MEDS: FLORINEF PO SCH (11:57)
[2019-02-11] MEDS: ZOLOFT PO SCH (11:57)
[2019-02-11] MEDS: SODIUM CHLORIDE FLUSH SYRINGE 10 ML IV SCH ×2 (11:58→22:51)
[2019-02-11] MEDS ORDERED: NACL 0.9% 250ML 250 ML IV ONE (12:00)
[2019-02-11] MEDS ORDERED: MAGNESIUM SULFATE 3 GM in NACL 0.9% 100 ML IV ONE (17:08)
[2019-02-11] MEDS: PERCOCET 5/325 PO PRN (18:19)
[2019-02-12] MEDS ORDERED: PHENERGAN PR PRN (00:37)
[2019-02-12] MEDS: NACL 0.9% 1000 ML 1,000 ML IV SCH ×4 (01:15→10:01)
[2019-02-12] MEDS: D50W (25GM) Syringe IV PRN (05:17)
[2019-02-12] MEDS: SYNTHROID PO SCH (05:24)
[2019-02-12 06:12] LABS: Calcium 7.3 mg/dL (8.4-10.2)
[2019-02-12] MEDS ORDERED: LANTUS SUB-Q SCH (08:00)
[2019-02-12] MEDS: HumuLIN R SUB-Q SCH ×2 (09:52→13:04)
[2019-02-12] MEDS: FLORINEF PO SCH (09:54)
[2019-02-12] MEDS: ZOLOFT PO SCH (09:54)
[2019-02-12] MEDS: KEPPRA PO SCH (09:54)
[2019-02-12] MEDS: SODIUM CHLORIDE FLUSH SYRINGE 10 ML IV SCH (09:56)
[2019-02-12] MEDS ORDERED: K-DUR PO ONE (10:00)
[2019-02-12] MEDS ORDERED: NACL 0.9% 250ML 250 ML IV ONE (10:00)
[2019-02-12] MEDS: CORTEF PO SCH (10:50)
[2019-02-12] MEDS: ZOFRAN IV PRN (13:00)
[2019-02-12 13:02] VITALS: BP 99/62
--- NOTE | 2019-02-12 13:21 | Discharge Summary ---
Providers - Providers Date of Admission: 02/09/19 15:06 Date of discharge: 02/12/19 Attending physician: ALONSO ORLANDO 02/09/19 22:28 Consult to Dietitian/Nutrition [CONS] Routine Physician Instructions: Reason For Exam: Reason for Consult: Diet education [facility] Condition: Stable Hospital course: Discharge diagnosis: --Episodes of hypoglycemia; resolved patient has very labile blood sugars, with intermittent hypoglycemia, Adjust insulin dose, encourage patient to comply with regular meals -- Hyperosmolar nonketotic hyperglycemia Current Visit: Yes Status: Acute Plan to address problem: Patient has very labile blood sugars Long-acting insulin as needed patient's hemoglobin A1c in November 2018 is >12 --BRANDEE (acute kidney injury): Vasomotor nephropathy Current Visit: Yes Status: Acute Plan to address problem: IVF resuscitation therapy, monitor uop q shift, serial bmp, monitor serum creatnine -- H/O Dante's disease Current Visit: Yes Status: Acute Plan to address problem: continue steroid therapy, IVf resuscitation therapy, monitor BP q shift, -- Hypothyroid Current Visit: Yes Status: Acute Plan to address problem: Continue synthroid therapy, supportive care. --H/O Seizure Current Visit: Yes Status: Acute Plan to address problem: continue keppra therapy, neuro checks, seizure precautions. Disposition: DC/TX-70 ANOTHER TYPE HLTHCARE Time spent for discharge: 32 min Core Measure Documentation - Palliative Care Palliative Care/ Comfort Measures: Not Applicable - Core Measures Any of the following diagnoses?: none Exam - Constitutional Vitals: Temp Pulse Resp BP Pulse Ox 97.6 F 62 19 99/62 100 02/12/19 11:26 02/12/19 11:26 02/12/19 11:26 02/12/19 11:26 02/12/19 11:26 General appearance: Present: no acute distress, well-nourished - EENT Eyes: Present: PERRL, EOM intact - Neck Neck: Present: supple, normal ROM - Respiratory Respiratory effort: normal Respiratory: bilateral: diminished, negative: rales, rhonchi, wheezing - Cardiovascular Rhythm: regular Heart Sounds: Present: S1 & S2 - Extremities Extremities: no ischemia, No edema - Abdominal General gastrointestinal: Present: soft, non-tender, non-distended, normal bowel sounds - Integumentary Integumentary: Present: clear, warm - Musculoskeletal Musculoskeletal: strength equal bilaterally - Psychiatric Psychiatric: appropriate mood/affect, cooperative - Neurologic Neurologic: CNII-XII intact, moves all extremities Plan Activity: no restrictions Diet: diabetic Additional Instructions: 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 Follow-up neurologist per schedule. Advised to comply with medications and diet and follow-up visits Follow up with: ZAINA LONDONO MD [Primary Care Provider] - 7 Days Prescriptions: levETIRAcetam [Keppra TAB] 500 mg PO BID #60 tablet
[2019-02-12] MEDS ORDERED: TRIPLE ANTIBIOTIC TP ONE (17:12)
== END 2019-02-12 17:00 | disposition home or self-care (01) | DRG 637 ==
LOC: ED 08:36 → IMCU 15:06 → CC1 18:34 → 3A 02-10 13:43
PROVIDERS: ADMIT Internal Medicine; ATTEND Internal Medicine
DX: E11.00 Type 2 diabetes mellitus with hyperosmolarity without nonketotic hyperglycemic-hyperosmolar coma (NKHHC) (principal); N17.0 Acute kidney failure with tubular necrosis; E03.9 Hypothyroidism, unspecified; E27.1 Primary adrenocortical insufficiency; E87.1 Hypo-osmolality and hyponatremia; E87.6 Hypokalemia; F32.9 Major depressive disorder, single episode, unspecified; E11.22 Type 2 diabetes mellitus with diabetic chronic kidney disease; N18.2 Chronic kidney disease, stage 2 (mild); Z90.49 Acquired absence of other specified parts of digestive tract; Z82.49 Family history of ischemic heart disease and other diseases of the circulatory system; Z83.3 Family history of diabetes mellitus; Z88.0 Allergy status to penicillin; Z88.1 Allergy status to other antibiotic agents; Z79.899 Other long term (current) drug therapy
CPT/HCPCS: 36415; 80048; 80053; 80320; 81001; 82805; 82947; 82962; 83690; 83735; 84100; 84703; 85025; 94640; 96361; 96374; 96375; G0378; A6250; G0480; J1815; J2270; J2405; J3475; J7030; J7050

== ENCOUNTER 2019-02-15 17:47 | Inpatient (IN) | payer MEDICAID ==
[2019-02-15] MEDS ORDERED: HumuLIN R IV ONE (19:07)
[2019-02-15] MEDS ORDERED: NACL 0.9% 1000 ML 1,000 ML IV ONE ×2 (19:07→23:20)
--- NOTE | 2019-02-15 19:12 | Emergency Department Report ---
ED General Adult HPI - General Chief complaint: Hyperglycemia Stated complaint: HIGH BLOOD SUGAR Time Seen by Provider: 02/15/19 19:08 Source: patient Mode of arrival: Ambulatory Limitations: No Limitations - History of Present Illness Initial comments: Patient is a 28-year-old female that presents emergency room with complaints of elevated blood sugar and chest pain and a simple episode. Patient states her blood sugar has been running high for a few weeks and today it's been bouncing was 400 and knee are reading high. Patient states approximately one hour ago she developed chest pain in the center of her chest nonradiating. Patient states the pain is 8 out of 10. Patient states the pain is better with rest and worse with exertion. Patient states her sickle episode was brief and was witnessed by her family. Patient denies head injury. -: Sudden Severity scale (0 -10): 8 Quality: stabbing Consistency: constant Improves with: rest Worsens with: movement Associated Symptoms: chest pain, weakness. denies: confusion, cough, diaphoresis, fever/chills, headaches, loss of appetite, malaise, nausea/vomiting, rash, seizure, shortness of breath, syncope Treatments Prior to Arrival: none - Related Data Home Medications Medication Instructions Recorded Confirmed Last Taken Levothyroxine Sodium [Synthroid] 125 mcg PO DAILY 09/23/18 02/15/19 02/08/19 Fludrocortisone [Florinef] 0.1 mg PO QAM 01/28/19 02/15/19 02/08/19 Hydrocortisone [Cortef TAB] 5 mg PO QHS 01/28/19 02/15/19 01/27/19 Hydrocortisone [Cortef TAB] 10 mg PO QAM 01/28/19 02/15/19 02/09/19 Insulin Degludec [Tresiba 8 units SUB-Q QAM 01/28/19 02/15/19 02/09/19 Flextouch U-100] Lispro Insulin [HumaLOG] 1 dose SUB-Q AC PRN 01/28/19 02/15/19 01/26/19 Sertraline [Zoloft] 25 mg PO QDAY 01/28/19 02/15/19 02/08/19 Previous Rx's Medication Instructions Recorded Last Taken Type levETIRAcetam [Keppra TAB] 500 mg PO BID #60 tablet 02/12/19 Unknown Rx Allergies Allergy/AdvReac Type Severity Reaction Status Date / Time Penicillins Allergy Angioedema Verified 12/31/18 16:01 vortioxetine Allergy Unknown Verified 12/31/18 16:01 [From Trintellix] ziprasidone [From Geodon] Allergy Angioedema Verified 12/31/18 16:01 vancomycin AdvReac Itching Verified 12/31/18 16:01 ED Review of Systems ROS: Stated complaint: HIGH BLOOD SUGAR Other details as noted in HPI Constitutional: denies: chills, fever Eyes: denies: eye pain, eye discharge, vision change ENT: denies: ear pain, throat pain Respiratory: denies: cough, shortness of breath, wheezing Cardiovascular: chest pain. denies: palpitations Endocrine: no symptoms reported Gastrointestinal: denies: abdominal pain, nausea, diarrhea Genitourinary: denies: urgency, dysuria, discharge Musculoskeletal: denies: back pain, joint swelling, arthralgia Skin: denies: rash, lesions Neurological: denies: headache, weakness, paresthesias Psychiatric: denies: anxiety, depression Hematological/Lymphatic: denies: easy bleeding, easy bruising ED Past Medical Hx - Past Medical History Previous Medical History?: Yes Hx Congestive Heart Failure: No Hx Diabetes: Yes Hx Renal Disease: Yes (2nd stage) Hx Seizures: Yes Hx Asthma: No Hx COPD: No Additional medical history: hypotension, hypothyroidism, [place]'s disease, Depression, Celiac - Surgical History Hx Cholecystectomy: Yes Hx Appendectomy: Yes Additional Surgical History: 4. port right chest wall - Social History Smoking Status: Former Smoker Substance Use Type: None - Medications Home Medications: Home Medications Medication Instructions Recorded Confirmed Last Taken Type Levothyroxine Sodium [Synthroid] 125 mcg PO DAILY 09/23/18 02/15/19 02/08/19 History Fludrocortisone [Florinef] 0.1 mg PO QAM 01/28/19 02/15/19 02/08/19 History Hydrocortisone [Cortef TAB] 5 mg PO QHS 01/28/19 02/15/19 01/27/19 History Hydrocortisone [Cortef TAB] 10 mg PO QAM 01/28/19 02/15/19 02/09/19 History Insulin Degludec [Tresiba 8 units SUB-Q QAM 01/28/19 02/15/19 02/09/19 History Flextouch U-100] Lispro Insulin [HumaLOG] 1 dose SUB-Q AC PRN 01/28/19 02/15/19 01/26/19 History Sertraline [Zoloft] 25 mg PO QDAY 01/28/19 02/15/19 02/08/19 History levETIRAcetam [Keppra TAB] 500 mg PO BID #60 tablet 02/12/19 02/15/19 Unknown Rx ED Physical Exam - General Limitations: No Limitations General appearance: alert, in no apparent distress - Head Head exam: Present: atraumatic, normocephalic - Eye Eye exam: Present: normal appearance - ENT ENT exam: Present: mucous membranes moist - Neck Neck exam: Present: normal inspection - Respiratory Respiratory exam: Present: normal lung sounds bilaterally. Absent: respiratory distress - Cardiovascular Cardiovascular Exam: Present: regular rate, normal rhythm. Absent: systolic murmur, diastolic murmur, rubs, gallop - GI/Abdominal GI/Abdominal exam: Present: soft, normal bowel sounds - Extremities Exam Extremities exam: Present: normal inspection - Back Exam Back exam: Present: normal inspection - Neurological Exam Neurological exam: Present: alert, oriented X3 - Psychiatric Psychiatric exam: Present: normal affect, normal mood - Skin Skin exam: Present: warm, dry, intact, normal color. Absent: rash ED Course Vital Signs 02/15/19 02/15/19 02/15/19 19:01 19:05 19:15 Temperature 98.3 F Pulse Rate 100 H 75 Respiratory 15 16 Rate Blood Pressure 116/78 Blood Pressure 116/78 [Left] O2 Sat by Pulse 82 L 100 100 Oximetry 02/15/19 02/15/19 02/15/19 19:30 20:00 20:31 Temperature 98.2 F Pulse Rate 67 Respiratory 15 Rate Blood Pressure 126/84 126/84 Blood Pressure 115/79 [Left] O2 Sat by Pulse 100 100 Oximetry 02/15/19 02/15/19 02/15/19 21:00 21:31 22:01 Temperature Pulse Rate 67 73 69 Respiratory 22 12 16 Rate Blood Pressure 117/81 126/84 97/63 Blood Pressure [Left] O2 Sat by Pulse 98 100 100 Oximetry 02/15/19 02/15/19 02/15/19 22:31 23:00 23:31 Temperature Pulse Rate 84 Respiratory 18 13 Rate Blood Pressure 97/63 109/82 109/82 Blood Pressure [Left] O2 Sat by Pulse 100 100 99 Oximetry 02/15/19 02/16/19 02/16/19 23:59 00:00 01:00 Temperature Pulse Rate 75 80 Respiratory 17 17 15 Rate Blood Pressure 97/63 103/70 101/73 Blood Pressure [Left] O2 Sat by Pulse 98 99 Oximetry - Reevaluation(s) Reevaluation #1: I discussed all results with patient. Patient states her pain is better. Patient will be admitted to the hospital service. Patient agrees with plan of care. Patient is placed on insulin drip for elevated blood sugar. 02/15/19 22:23 - Consultations Consultation #1: Hospitalist consultation for admission. Hospitalist to admit the patient. 02/15/19 22:30 ED Medical Decision Making - Lab Data Result diagrams: 02/15/19 20:28 02/16/19 01:04 - EKG Data -: EKG Interpreted by Mo EKG shows normal: sinus rhythm, axis, intervals, QRS complexes, ST-T waves Rate: normal - Radiology Data Radiology results: report reviewed, image reviewed CT head/brain wo con INDICATION: MAIN: syncope, POSTERIOR HEAD INJURY, PAIN.. TECHNIQUE: All CT scans at this location are performed using CT dose reduction for ALARA by means of automated exposure control. COMPARISON: 10/22/2018 FINDINGS: Visualized paranasal and mastoid sinuses are clear. No cranial fracture. No significant extracranial soft tissue swelling. Ventricles are symmetrical and normal in size. No mass, hemorrhage or other significant abnormality. IMPRESSION: 1. Negative study. - Medical Decision Making She is a 28-year-old female that presents emergency room with multiple complaints. Patient complains include hyperglycemia, chest pain and syncope. Patient to have extremely elevated blood sugar. Patient placed on insulin drip after given insulin bolus. Patient's labs remarkable for anemia and elevated blood sugar and hyponatremia. Patient given fluids. Patient's EKG and cardiac workup negative. Patient's head CT negative. - Differential Diagnosis syncope. Chest pain. DKA. HHS. Hyperglycemia. Uncontrolled diabetes. Critical Care Time: Yes Critical care attestation.: If time is entered above; I have spent that time in minutes in the direct care of this critically ill patient, excluding procedure time. Critical Care Time: 45 minutes ED Disposition Clinical Impression: Hyperglycemia, Hyponatremia, Renal insufficiency, Uncontrolled type 2 DM with hyperosmolar nonketotic hyperglycemia Chest pain Qualifiers: Chest pain type: unspecified Qualified Code(s): R07.9 - Chest pain, unspecified CKD (chronic kidney disease) Qualifiers: Chronic kidney disease stage: unspecified stage Qualified Code(s): N18.9 - Chronic kidney disease, unspecified Anemia Qualifiers: Anemia type: unspecified type Qualified Code(s): D64.9 - Anemia, unspecified Syncope Qualifiers: Syncope type: unspecified Qualified Code(s): R55 - Syncope and collapse Disposition: DC-09 OP ADMIT IP TO THIS HOSP Is pt being admited?: Yes Does the pt Need Aspirin: No Condition: Critical Time of Disposition: 22:21
[2019-02-15 20:49] LABS: Hematocrit 26.1 % (30.3-42.9); Hemoglobin 8.7 gm/dl (10.1-14.3); Mean Corpuscular HGB Conc 33 % (30-34); Mean Corpuscular Volume 85 fl (79-97); Platelet Count 178 K/mm3 (140-440); Red Blood Count 3.07 M/mm3 (3.65-5.03); Red Cell Distribution Width 17.6 % (13.2-15.2)
--- NOTE | 2019-02-15 20:50 | Cat Scan Report ---
CT head/brain wo con INDICATION: MAIN: syncope, POSTERIOR HEAD INJURY, PAIN.. TECHNIQUE: All CT scans at this location are performed using CT dose reduction for ALARA by means of automated e xposure control. COMPARISON: 10/22/2018 FINDINGS: Visualized paranasal and mastoid sinuses are clear. No cranial fracture. No significant extracranial soft tissue swelling. Ventricles are symmetrical and normal in size. No mass, hemorrhage or other significant abnormality. IMPRESSION: 1. Negative study. Signer Name: Kyle De Anda MD Signed: 02/15/2019 8:46 PM Workstation Name: [id number]
[2019-02-15 21:17] LABS: BUN/Creatinine Ratio 7; Blood Urea Nitrogen 11 mg/dL (7-17); Calcium 7.6 mg/dL (8.4-10.2); Hemolysis Index 2
[2019-02-15] MEDS ORDERED: D50W (25GM) Syringe IV PRN (21:45)
[2019-02-15] MEDS ORDERED: HumuLIN R 100 UNITS in NACL 0.9% 99 ML IV SCH (22:00)
[2019-02-15 22:17] LABS: Bilirubin,Urine NEG (Negative); Blood,Urine NEG (Negative); Color,Urine Colorless (Yellow); Mucus,Urine FEW /HPF; Protein,Urine <15 mg/dL mg/dL (Negative); Urobilinogen,Urine < 2.0 mg/dL (<2.0)
[2019-02-15 22:21] LABS: Total Cells Counted 100
[2019-02-15 22:22] LABS: RBC Morphology Normal
--- NOTE | 2019-02-15 22:45 | XRay Report ---
CHEST 1 VIEW 10:20 PM INDICATION / CLINICAL INFORMATION: Chest pain. Syncope. COMPARISON: 01/16/2019. FINDINGS: SUPPORT DEVICES: The position of the right subclavian CVL has not changed. HEART / MEDIASTINUM: The heart size and pulmonary vasculature are normal. The aorta is normal in jarek brigido. LUNGS / PLEURA: No significant pulmonary or pleural abnormality. No pneumothorax. ADDITIONAL FINDINGS: No significant additional findings. IMPRESSION: No acute abnormality or significant change. Signer Name: Prem Colon MD Signed: 02/15/2019 10:41 PM Workstation Name: [id number]
[2019-02-15] MEDS ORDERED: NACL 0.9% 1000 ML 1,000 ML IV SCH (23:00)
[2019-02-15] MEDS ORDERED: TYLENOL PO PRN (23:15)
[2019-02-15] MEDS ORDERED: MORPHINE IV PRN (23:15)
[2019-02-15] MEDS ORDERED: PERCOCET 5/325 PO PRN (23:15)
[2019-02-15] MEDS ORDERED: MAGNESIUM SULFATE 2GM/50ML 2 GM/50 ML BAG IV ONE (23:21)
--- NOTE | 2019-02-15 23:22 | History and Physical Report ---
History of Present Illness Date of examination: 02/15/19 Chief complaint: High blood sugar History of present illness: Patient is a 28 year old female with history of diabetes mellitus type 1 who presented to the ED on account of high blood sugar. Patient stated that her home glucometer was reading high despite taking her insulin. She admits to nausea with vomiting, diarrhea, chills without fever, chest pain, headaches, lightheadedness and syncopal episode. She denies cough, shortness of breath, palpitation, leg swelling, orthopnea or PND No abdominal pain, dysuria or urin eric frequency. Of note, patient has history of recurrent hospitalization for same complaints. She reported that she is in the process of getting an insulin pump. Past History Past Medical History: anemia, diabetes, hypertension, hypothyroidism, renal failure, seizures, other (Dante's disease and depression) Past Surgical History: appendectomy, cholecystectomy, (4), Other (rocío-cath placement) Social history: no significant social history (she denies tobacco, alcohol or illicit drug use) Family history: other (mother has history of hypertension and lupus. No known family history of diabetes) Medications and Allergies Allergies Allergy/AdvReac Type Severity Reaction Status Date / Time Penicillins Allergy Angioedema Verified 12/31/18 16:01 vortioxetine Allergy Unknown Verified 12/31/18 16:01 [From Trintellix] ziprasidone [From Geodon] Allergy Angioedema Verified 12/31/18 16:01 vancomycin AdvReac Itching Verified 12/31/18 16:01 Home Medications Medication Instructions Recorded Confirmed Last Taken Type Levothyroxine Sodium [Synthroid] 125 mcg PO DAILY 09/23/18 02/15/19 02/08/19 History Fludrocortisone [Florinef] 0.1 mg PO QAM 01/28/19 02/15/19 02/08/19 History Hydrocortisone [Cortef TAB] 5 mg PO QHS 01/28/19 02/15/19 01/27/19 History Hydrocortisone [Cortef TAB] 10 mg PO QAM 01/28/19 02/15/19 02/09/19 History Insulin Degludec [Tresiba 8 units SUB-Q QAM 01/28/19 02/15/19 02/09/19 History Flextouch U-100] Lispro Insulin [HumaLOG] 1 dose SUB-Q AC PRN 01/28/19 02/15/19 01/26/19 History Sertraline [Zoloft] 25 mg PO QDAY 01/28/19 02/15/19 02/08/19 History levETIRAcetam [Keppra TAB] 500 mg PO BID #60 tablet 02/12/19 02/15/19 Unknown Rx Active Meds: Active Medications Acetaminophen (Tylenol) 650 mg PO Q4H PRN PRN Reason: Pain MILD(1-3)/Fever >100.5/STEWARD Dextrose (D50w (25gm) Syringe) 0 ml IV PRN PRN PRN Reason: Hypoglycemia Famotidine (Pepcid) 10 mg IV BID MARINO Heparin Sodium (Porcine) (Heparin) 5,000 unit SUB-Q Q8HR MARINO Insulin Human Regular 100 (units/ Sodium Chloride) 100 mls @ 1 mls/hr IV TITR MARINO; Protocol Last Admin: 02/15/19 22:22 Dose: 8 units/hr, 8 mls/hr Documented by: Sodium Chloride (Nacl 0.9% 1000 Ml) 1,000 mls @ 125 mls/hr IV DIRECT MARINO Last Admin: 02/15/19 23:05 Dose: 125 mls/hr Documented by: Morphine Sulfate (Morphine) 4 mg IV Q4H PRN PRN Reason: Pain , Severe (7-10) Ondansetron HCl (Zofran) 4 mg IV Q8H PRN PRN Reason: Nausea And Vomiting Oxycodone/Acetaminophen (Percocet 5/325) 1 tab PO Q6H PRN PRN Reason: Pain, Moderate (4-6) Sodium Chloride (Sodium Chloride Flush Syringe 10 Ml) 10 ml IV BID MARINO Sodium Chloride (Sodium Chloride Flush Syringe 10 Ml) 10 ml IV PRN PRN PRN Reason: LINE FLUSH Review of Systems All systems: negative (all other systems reviewed with the patient and are negative unless otherwise stated) Exam - Constitutional Vitals: Temp Pulse Resp BP Pulse Ox 98.2 F 69 16 97/63 100 02/15/19 19:30 02/15/19 22:01 02/15/19 22:01 02/15/19 22:01 02/15/19 22:01 General appearance: Present: no acute distress, well-nourished - EENT Eyes: Present: PERRL, EOM intact ENT: hearing intact, clear oral mucosa - Neck Neck: Present: supple, normal ROM - Respiratory Respiratory effort: normal Respiratory: bilateral: CTA - Cardiovascular Rhythm: regular Heart Sounds: Present: S1 & S2. Absent: rub, click - Extremities Extremities: pulses symmetrical, No edema Peripheral Pulses: within normal limits - Abdominal General gastrointestinal: Present: soft, tender (epigastric), non-distended, normal bowel sounds Female genitourinary: Present: deferred - Integumentary Integumentary: Present: clear, warm, dry - Musculoskeletal Musculoskeletal: gait normal, strength equal bilaterally - Psychiatric Psychiatric: appropriate mood/affect, intact judgment & insight - Neurologic Neurologic: CNII-XII intact, moves all extremities Results - Labs CBC & Chem 7: 02/15/19 20:28 02/16/19 01:04 Labs: Laboratory Last Values WBC 6.8 K/mm3 (4.5-11.0) 02/15/19 20:28 RBC 3.07 M/mm3 (3.65-5.03) L 02/15/19 20:28 Hgb 8.7 gm/dl (10.1-14.3) L 02/15/19 20:28 Hct 26.1 % (30.3-42.9) L 02/15/19 20:28 MCV 85 fl (79-97) 02/15/19 20:28 MCH 29 pg (28-32) 02/15/19 20:28 MCHC 33 % (30-34) 02/15/19 20:28 RDW 17.6 % (13.2-15.2) H 02/15/19 20:28 Plt Count 178 K/mm3 (140-440) 02/15/19 20:28 Lymph % (Auto) Unit Assistant 02/15/19 20:28 Add Manual Diff Complete 02/15/19 20:28 Total Counted 100 02/15/19 20:28 Seg Neutrophils % Unit Assistant 02/15/19 20:28 Seg Neuts % (Manual) 33.0 % (40.0-70.0) L 02/15/19 20:28 0 % 02/15/19 20:28 61.0 % (13.4-35.0) H 02/15/19 20:28 Reactive Lymphs % (Man) 0 % 02/15/19 20:28 3.0 % (0.0-7.3) 02/15/19 20:28 1.0 % (0.0-4.3) 02/15/19 20:28 2.0 % (0.0-1.8) H 02/15/19 20:28 0 % 02/15/19 20:28 0 % 02/15/19 20:28 0 % 02/15/19 20:28 0 % 02/15/19 20:28 Nucleated RBC % Not Reportable 02/15/19 20:28 Seg Neutrophils # Man 2.2 K/mm3 (1.8-7.7) 02/15/19 20:28 Band Neutrophils # 0.0 K/mm3 02/15/19 20:28 4.1 K/mm3 (1.2-5.4) 02/15/19 20:28 Abs React Lymphs (Man) 0.0 K/mm3 02/15/19 20:28 0.2 K/mm3 (0.0-0.8) 02/15/19 20:28 0.1 K/mm3 (0.0-0.4) 02/15/19 20:28 0.1 K/mm3 (0.0-0.1) 02/15/19 20:28 0.0 K/mm3 02/15/19 20:28 0.0 K/mm3 02/15/19 20:28 0.0 K/mm3 02/15/19 20:28 Blast Cells # 0.0 K/mm3 02/15/19 20:28 WBC Morphology Not Reportable 02/15/19 20:28 Hypersegmented Neuts Not Reportable 02/15/19 20:28 Hyposegmented Neuts Not Reportable 02/15/19 20:28 Hypogranular Neuts Not Reportable 02/15/19 20:28 Not Reportable 02/15/19 20:28 Not Reportable 02/15/19 20:28 Not Reportable 02/15/19 20:28 Not Reportable 02/15/19 20:28 Not Reportable 02/15/19 20:28 Not Reportable 02/15/19 20:28 Not Reportable 02/15/19 20:28 Not Reportable 02/15/19 20:28 Plt Clumps, EDTA Not Reportable 02/15/19 20:28 Not Reportable 02/15/19 20:28 Not Reportable 02/15/19 20:28 Not Reportable 02/15/19 20:28 Plt Morphology Comment Not Reportable 02/15/19 20:28 RBC Morphology Normal 02/15/19 20:28 Dimorphic RBCs Not Reportable 02/15/19 20:28 Not Reportable 02/15/19 20:28 Not Reportable 02/15/19 20:28 Not Reportable 02/15/19 20:28 Not Reportable 02/15/19 20:28 Not Reportable 02/15/19 20:28 Not Reportable 02/15/19 20:28 Not Reportable 02/15/19 20:28 Not Reportable 02/15/19 20:28 Not Reportable 02/15/19 20:28 Not Reportable 02/15/19 20:28 Not Reportable 02/15/19 20:28 Not Reportable 02/15/19 20:28 Not Reportable 02/15/19 20:28 Not Reportable 02/15/19 20:28 Not Reportable 02/15/19 20:28 Not Reportable 02/15/19 20:28 Not Reportable 02/15/19 20:28 Not Reportable 02/15/19 20:28 Not Reportable 02/15/19 20:28 Acanthocytes (Spur) Not Reportable 02/15/19 20:28 Rouleaux Not Reportable 02/15/19 20:28 Not Reportable 02/15/19 20:28 Not Reportable 02/15/19 20:28 Not Reportable 02/15/19 20:28 Not Reportable 02/15/19 20:28 Hem Pathologist Commnt No 02/15/19 20:28 VBG pH 7.351 (7.320-7.420) 02/15/19 Unknown Sodium 130 mmol/L (137-145) L D 02/15/19 20:28 Potassium 4.3 mmol/L (3.6-5.0) D 02/15/19 20:28 Chloride 96.2 mmol/L (98-107) L 02/15/19 20:28 Carbon Dioxide 24 mmol/L (22-30) 02/15/19 20:28 14 mmol/L 02/15/19 20:28 BUN 11 mg/dL (7-17) 02/15/19 20:28 1.5 mg/dL (0.7-1.2) H 02/15/19 20:28 Estimated GFR 41 ml/min 02/15/19 20:28 7 % 02/15/19 20:28 Glucose 624 mg/dL (65-100) H* 02/15/19 20:28 POC Glucose > 500 (70-105) H 02/15/19 21:47 Calcium 7.6 mg/dL (8.4-10.2) L 02/15/19 20:28 Magnesium 1.60 mg/dL (1.7-2.3) L 02/15/19 20:28 < 0.010 ng/mL (0.00-0.029) 02/15/19 20:28 HCG, Qual Negative (Negative) 02/15/19 20:28 Colorless (Yellow) 02/15/19 21:02 Clear (Clear) 02/15/19 21:02 5.0 (5.0-7.0) 02/15/19 21:02 Ur Specific [place] 1.010 (1.003-1.030) 02/15/19 21:02 <15 mg/dl mg/dL (Negative) 02/15/19 21:02 >=500 mg/dL (Negative) 02/15/19 21:02 Neg mg/dL (Negative) 02/15/19 21:02 Neg (Negative) 02/15/19 21:02 Neg (Negative) 02/15/19 21:02 Neg (Negative) 02/15/19 21:02 < 2.0 mg/dL (<2.0) 02/15/19 21:02 Ur Leukocyte Esterase Sm (Negative) 02/15/19 21:02 9.0 /HPF (0.0-6.0) H 02/15/19 21:02 2.0 /HPF (0.0-6.0) 02/15/19 21:02 U Epithel Cells (Auto) < 1.0 /HPF (0-13.0) 02/15/19 21:02 Few /HPF 02/15/19 21:02 Assessment and Plan Assessment and plan: HHS in DM type 1 -Patient will be admitted to the ICU on insulin drip with serial BMP level monitoring Hypomagnesemia -We'll replete and monitor mg level Atypical chest pain -Continue serial troponin level monitoring Possible UTI -We'll hold off on starting antibiotic -Follow up urine culture results Chronic kidney disease stage III -Renal function levels stable Hypothyroidism -We will resume her Synthroid Hypertension -Stable 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
[2019-02-16] MEDS ORDERED: ZOFRAN ONE (00:48)
[2019-02-16] MEDS: ZOFRAN IV PRN ×3 (00:51→16:08)
[2019-02-16] MEDS ORDERED: D5/0.45NS 1,000 ML IV SCH (01:00)
[2019-02-16] MEDS ORDERED: MAGNESIUM SULFATE 2GM/50ML 2 GM/50 ML BAG IV ONE (01:02)
[2019-02-16 01:34] LABS: Calcium 7.7 mg/dL (8.4-10.2)
[2019-02-16] MEDS ORDERED: LANTUS SUB-Q ONE (01:51)
[2019-02-16] MEDS ORDERED: KCL 20MEQ/100ML 20 MEQ/100 ML BAG IV ONE (01:55)
[2019-02-16] MEDS ORDERED: D50W (25GM) Syringe IV ONE (02:05)
[2019-02-16] MEDS ORDERED: D5W/0.45% NACL/KCL 20 MEQ 20 MEQ/1,000 ML BAG IV ONE (02:30)
[2019-02-16] MEDS: D5W/0.45% NACL/KCL 20 MEQ 20 MEQ/1,000 ML BAG IV SCH ×2 (02:32→13:21)
[2019-02-16 05:18] LABS: Calcium 7.7 mg/dL (8.4-10.2)
[2019-02-16] MEDS ORDERED: KCL 10MEQ/100ML 10 MEQ/100 ML BAG IV ONE ×2 (05:21→06:18)
[2019-02-16] MEDS: KCL 10MEQ/100ML 10 MEQ/100 ML BAG IV SCH ×2 (05:23→06:31)
[2019-02-16] MEDS: HEPARIN SUB-Q SCH ×4 (06:35→22:11)
[2019-02-16] MEDS ORDERED: HEPARIN ONE (06:36)
[2019-02-16] MEDS: SODIUM CHLORIDE FLUSH SYRINGE 10 ML IV PRN ×2 (08:33→16:09)
[2019-02-16] MEDS: HumaLOG SUB-Q SCH ×4 (09:08→22:19)
[2019-02-16] MEDS: PEPCID IV SCH ×2 (09:11→22:13)
[2019-02-16] MEDS: SODIUM CHLORIDE FLUSH SYRINGE 10 ML IV SCH ×2 (09:12→22:14)
[2019-02-16 09:32] LABS: Calcium 7.7 mg/dL (8.4-10.2)
[2019-02-16] MEDS: PHENERGAN PO PRN (09:59)
[2019-02-16] MEDS ORDERED: ZOFRAN IV ONE (10:00)
--- NOTE | 2019-02-16 19:20 | Progress Note ---
Assessment and Plan Assessment and plan: HHS in DM type 1 -Blood glucose improved Nausea and vomiting Zofran Add Promethazine Hypomagnesemia -We'll replete and monitor mg level Atypical chest pain -Continue serial troponin level monitoring Possible UTI -We'll hold off on starting antibiotic -Follow up urine culture results -asymptomatic Chronic kidney disease stage III -Renal function levels stable Hypothyroidism -We will resume her Synthroid Hypertension -Stable History of [place]'s disease -Resumed her home steroids Seizure disorder -We'll resume home Keppra -Seizure precautions Chronic anemia -H/H stable DVT prophylaxis with heparin and GI prophylaxis with famotidine Poss dc home tomorrow if BP controlled History Interval history: Nausea and vomiting Elevated blood glucose Hospitalist Physical - Physical exam Narrative exam: Gen: Not in acute distress, lying in bed HEENT: Normocephalic, atraumatic Neck: supple, no JVD Heart: S1 and S2 reg, no murmurs, rubs or gallop Lungs: Clear, no crackles, no rhonchi Abd: soft, non tender, non distended, normal BS, Ext: No edema, no clubbing, no cyanosis Neuro: Awake,alert, Oriented X 3. No focal neurological signs - Constitutional Vitals: Temp Pulse Resp BP Pulse Ox 97.0 F L 64 18 101/67 100 02/16/19 15:55 02/16/19 15:55 02/16/19 15:55 02/16/19 15:00 02/16/19 15:55 General appearance: Present: no acute distress, well-nourished Results - Labs CBC & Chem 7: 02/15/19 20:28 02/16/19 08:50 Labs: Laboratory Last Values WBC 6.8 K/mm3 (4.5-11.0) 02/15/19 20:28 RBC 3.07 M/mm3 (3.65-5.03) L 02/15/19 20:28 Hgb 8.7 gm/dl (10.1-14.3) L 02/15/19 20:28 Hct 26.1 % (30.3-42.9) L 02/15/19 20:28 MCV 85 fl (79-97) 02/15/19 20:28 MCH 29 pg (28-32) 02/15/19 20:28 MCHC 33 % (30-34) 02/15/19 20:28 RDW 17.6 % (13.2-15.2) H 02/15/19 20:28 Plt Count 178 K/mm3 (140-440) 02/15/19 20:28 Lymph % (Auto) Neonatal Nurse 02/15/19 20:28 Add Manual Diff Complete 02/15/19 20:28 Total Counted 100 02/15/19 20:28 Seg Neutrophils % Neonatal Nurse 02/15/19 20:28 Seg Neuts % (Manual) 33.0 % (40.0-70.0) L 02/15/19 20:28 0 % 02/15/19 20:28 61.0 % (13.4-35.0) H 02/15/19 20:28 Reactive Lymphs % (Man) 0 % 02/15/19 20:28 3.0 % (0.0-7.3) 02/15/19 20:28 1.0 % (0.0-4.3) 02/15/19 20:28 2.0 % (0.0-1.8) H 02/15/19 20:28 0 % 02/15/19 20:28 0 % 02/15/19 20:28 0 % 02/15/19 20:28 0 % 02/15/19 20:28 Nucleated RBC % Not Reportable 02/15/19 20:28 Seg Neutrophils # Man 2.2 K/mm3 (1.8-7.7) 02/15/19 20:28 Band Neutrophils # 0.0 K/mm3 02/15/19 20:28 4.1 K/mm3 (1.2-5.4) 02/15/19 20:28 Abs React Lymphs (Man) 0.0 K/mm3 02/15/19 20:28 0.2 K/mm3 (0.0-0.8) 02/15/19 20:28 0.1 K/mm3 (0.0-0.4) 02/15/19 20:28 0.1 K/mm3 (0.0-0.1) 02/15/19 20:28 0.0 K/mm3 02/15/19 20:28 0.0 K/mm3 02/15/19 20:28 0.0 K/mm3 08/18/19 20:28 Blast Cells # 0.0 K/mm3 02/15/19 20:28 WBC Morphology Not Reportable 02/15/19 20:28 Hypersegmented Neuts Not Reportable 02/15/19 20:28 Hyposegmented Neuts Not Reportable 02/15/19 20:28 Hypogranular Neuts Not Reportable 02/15/19 20:28 Not Reportable 02/15/19 20:28 Not Reportable 02/15/19 20:28 Not Reportable 02/15/19 20:28 Not Reportable 02/15/19 20:28 Not Reportable 02/15/19 20:28 Not Reportable 02/15/19 20:28 Not Reportable 02/15/19 20: Not Reportable 02/15/19 20:28 Plt Clumps, EDTA Not Reportable 02/15/19 20:28 Not Reportable 02/15/19 20:28 Not Reportable 02/15/19 20:28 Not Reportable 02/15/19 20:28 Plt Morphology Comment Not Reportable 02/15/19 20:28 RBC Morphology Normal 02/15/19 20:28 Dimorphic RBCs Not Reportable 02/15/19 20:28 Not Reportable 02/15/19 20:28 Not Reportable 02/15/19 20:28 Not Reportable 02/15/19 20:28 Not Reportable 02/15/19 20:28 Not Reportable 02/15/19 20:28 Not Reportable 02/15/19 20:28 Not Reportable 02/15/19 20:28 Not Reportable 02/15/19 20:28 Not Reportable 02/15/19 20:28 Not Reportable 02/15/19 20:28 Not Reportable 02/15/19 20:28 Not Reportable 02/15/19 20:28 Not Reportable 02/15/19 20:28 Not Reportable 02/15/19 20:28 Not Reportable 02/15/19 20: Not Reportable 02/15/19 20:28 Not Reportable 02/15/19 20:28 Not Reportable 02/15/19 20:28 Not Reportable 02/15/19 20:28 Acanthocytes (Spur) Not Reportable 02/15/19 20:28 Rouleaux Not Reportable 02/15/19 20:28 Not Reportable 02/15/19 20:28 Not Reportable 02/15/19 20:28 Not Reportable 02/15/19 20:28 Not Reportable 02/15/19 20:28 Hem Pathologist Commnt No 02/15/19 20:28 VBG pH 7.351 (7.320-7.420) 02/15/19 Unknown Sodium 136 mmol/L (137-145) L 02/16/19 08:50 Potassium 4.5 mmol/L (3.6-5.0) D 02/16/19 08:50 Chloride 102.7 mmol/L (98-107) 02/16/19 08:50 Carbon Dioxide 27 mmol/L (22-30) 02/16/19 08:50 11 mmol/L 02/16/19 08:50 BUN 8 mg/dL (7-17) 02/16/19 08:50 1.2 mg/dL (0.7-1.2) 02/16/19 08:50 Estimated GFR 53 ml/min 02/16/19 08:50 7 % 02/16/19 08:50 Glucose 187 mg/dL (65-100) H 02/16/19 08:50 POC Glucose 184 (70-105) H 02/16/19 16:38 Calcium 7.7 mg/dL (8.4-10.2) L 02/16/19 08:50 Magnesium 1.60 mg/dL (1.7-2.3) L 02/15/19 20:28 < 0.010 ng/mL (0.00-0.029) 02/16/19 04:02 HCG, Qual Negative (Negative) 02/15/19 20:28 Colorless (Yellow) 02/15/19 21:02 Clear (Clear) 02/15/19 21:02 5.0 (5.0-7.0) 02/15/19 21:02 Ur Specific [place] 1.010 (1.003-1.030) 02/15/19 21:02 <15 mg/dl mg/dL (Negative) 02/15/19 21:02 >=500 mg/dL (Negative) 02/15/19 21:02 Neg mg/dL (Negative) 02/15/19 21:02 Neg (Negative) 02/15/19 21:02 Neg (Negative) 02/15/19 21:02 Neg (Negative) 02/15/19 21:02 < 2.0 mg/dL (<2.0) 02/15/19 21:02 Ur Leukocyte Esterase Sm (Negative) 02/15/19 21:02 9.0 /HPF (0.0-6.0) H 02/15/19 21:02 2.0 /HPF (0.0-6.0) 02/15/19 21:02 U Epithel Cells (Auto) < 1.0 /HPF (0-13.0) 02/15/19 21:02 Few /HPF 02/15/19 21:02 Active Medications - Current Medications Current Medications: Generic Name Dose Route Start Last Admin Trade Name Freq PRN Reason Stop Dose Admin Acetaminophen 650 mg 02/15/19 23:15 Tylenol PO Q4H PRN Pain MILD(1-3)/Fever >100.5/STEWARD Dextrose 0 ml 02/15/19 21:45 02/16/19 02:06 D50w (25gm) Syringe IV 20 ml PRN PRN Administration Hypoglycemia Famotidine 10 mg 02/16/19 10:00 02/16/19 09:11 Pepcid IV 10 mg BID MARINO Administration Heparin Sodium (Porcine) 5,000 unit 02/16/19 06:00 02/16/19 14:41 Heparin SUB-Q Not Given Q8HR MARINO Sodium Chloride 1,000 mls @ 125 mls/hr 02/15/19 23:00 02/15/19 23:05 Nacl 0.9% 1000 Ml IV 125 mls/hr DIRECT MARINO Administration Potassium Chloride/Dextrose/Sod Cl 20 meq in 1,000 mls @ 100 mls/hr 02/16/19 02:00 02/16/19 13:21 D5w/0.45% Nacl/Kcl 20 Meq IV 100 mls/hr DIRECT MARINO Administration Insulin Human Lispro 0 unit 02/16/19 07:30 02/16/19 18:17 Humalog SUB-Q 2 unit ACHS MARINO Administration Protocol Morphine Sulfate 4 mg 02/15/19 23:15 Morphine IV Q4H PRN Pain , Severe (7-10) Ondansetron HCl 4 mg 02/15/19 23:15 02/16/19 16:08 Zofran IV 4 mg Q8H PRN Administration Nausea And Vomiting Oxycodone/Acetaminophen 1 tab 02/15/19 23:15 Percocet 5/325 PO Q6H PRN Pain, Moderate (4-6) Promethazine HCl 25 mg 02/16/19 10:00 02/16/19 09:59 Phenergan PO 25 mg Q6H PRN Administration Nausea And Vomiting Sodium Chloride 10 ml 02/16/19 10:00 02/16/19 09:12 Sodium Chloride Flush Syringe 10 Ml IV 10 ml BID MARINO Administration Sodium Chloride 10 ml 02/15/19 23:15 02/16/19 16:09 Sodium Chloride Flush Syringe 10 Ml IV 10 ml PRN PRN Administration LINE FLUSH
[2019-02-16] MEDS ORDERED: CORTEF PO SCH (22:00)
[2019-02-16] MEDS: KEPPRA PO SCH (22:13)
[2019-02-16] MEDS: ZOLOFT PO SCH (22:13)
[2019-02-17] MEDS: D5W/0.45% NACL/KCL 20 MEQ 20 MEQ/1,000 ML BAG IV SCH (02:52)
[2019-02-17] MEDS: HEPARIN SUB-Q SCH ×2 (06:06→14:41)
[2019-02-17 06:32] LABS: Hematocrit 25.8 % (30.3-42.9); Hemoglobin 8.6 gm/dl (10.1-14.3); Mean Corpuscular HGB Conc 33 % (30-34); Mean Corpuscular Volume 84 fl (79-97); Platelet Count 194 K/mm3 (140-440); Red Blood Count 3.07 M/mm3 (3.65-5.03); Red Cell Distribution Width 18.6 % (13.2-15.2)
[2019-02-17 06:42] LABS: Calcium 7.5 mg/dL (8.4-10.2)
[2019-02-17] MEDS ORDERED: NACL 0.9% 1000 ML 1,000 ML IV SCH (07:00)
[2019-02-17] MEDS: ZOLOFT PO SCH (09:09)
[2019-02-17] MEDS: KEPPRA PO SCH (09:09)
[2019-02-17] MEDS: HumaLOG SUB-Q SCH ×3 (09:10→18:44)
[2019-02-17] MEDS: PEPCID IV SCH (09:20)
[2019-02-17] MEDS: ZOFRAN IV PRN (09:20)
[2019-02-17 09:48] VITALS: BP 145/93
[2019-02-17] MEDS ORDERED: FLORINEF PO SCH (10:00)
[2019-02-17] MEDS ORDERED: SYNTHROID PO SCH (10:00)
[2019-02-17] MEDS ORDERED: CORTEF PO SCH (10:00)
[2019-02-17] MEDS ORDERED: INSULIN DEGLUDEC 8 UNIT SUB-Q SCH (10:00)
--- NOTE | 2019-02-17 10:06 | Discharge Summary ---
Providers - Providers Date of Admission: 02/15/19 23:16 Date of discharge: 02/17/19 Attending physician: INGA SANCHEZ Primary care physician: APARTMENT LEASING SPECIALIST Hospitalization Reason for admission: HONKS Condition: Critical Hospital course: Patient is a 28 year old female with history of diabetes mellitus type 1 who presented to the ED on account of high blood sugar. Patient stated that her home glucometer was reading high despite taking her insulin. Patient was admitted with diagnosis of HONKS with initial blood sugar greater than 600. Patient was placed on IV insulin drip and then later transitioned to subcutaneous insulin. The patient has stabilization of her blood sugar returned back to her baseline. Patient is felt to have received maximal hospital benefit. Dedicated discharge time 32 minutes. Disposition: - TO HOME OR SELFCARE Time spent for discharge: 32 - Discharge Diagnoses (1) CKD (chronic kidney disease) Status: Acute Qualifiers: Chronic kidney disease stage: unspecified stage Qualified Code(s): N18.9 - Chronic kidney disease, unspecified (2) Chest pain Status: Acute Qualifiers: Chest pain type: unspecified Qualified Code(s): R07.9 - Chest pain, unspecified (3) Hyperglycemia Status: Acute (4) Hyponatremia Status: Acute (5) Uncontrolled type 2 DM with hyperosmolar nonketotic hyperglycemia Status: Acute (6) Anemia Status: Chronic Qualifiers: Anemia type: unspecified type Qualified Code(s): D64.9 - Anemia, unspecified Core Measure Documentation - Palliative Care Palliative Care/ Comfort Measures: Not Applicable - Core Measures Any of the following diagnoses?: none Exam - Constitutional Vitals: Temp Pulse Resp BP Pulse Ox 98.2 F 72 18 145/93 100 02/17/19 08:59 02/17/19 08:59 02/17/19 08:59 02/17/19 08:59 02/17/19 08:59 General appearance: Present: no acute distress, well-nourished - EENT Eyes: Present: PERRL ENT: hearing intact, clear oral mucosa - Neck Neck: Present: supple, normal ROM - Respiratory Respiratory effort: normal Respiratory: bilateral: CTA - Cardiovascular Heart Sounds: Present: S1 & S2. Absent: rub, click - Extremities Extremities: pulses symmetrical, No edema Peripheral Pulses: within normal limits - Abdominal General gastrointestinal: Present: soft, non-tender, non-distended, normal bowel sounds Female genitourinary: Present: normal - Integumentary Integumentary: Present: clear, warm, dry - Musculoskeletal Musculoskeletal: gait normal, strength equal bilaterally - Psychiatric Psychiatric: appropriate mood/affect, intact judgment & insight - Neurologic Neurologic: CNII-XII intact, moves all extremities Plan Activity: no restrictions Weight Bearing Status: Full Weight Bearing Diet: diabetic Prescriptions: Hydrocortisone [Cortef TAB] 10 mg PO QAM #30 tablet Hydrocortisone [Cortef TAB] 5 mg PO QHS #30 tablet Fludrocortisone [Florinef] 0.1 mg PO QAM #30 tablet levETIRAcetam [Keppra TAB] 500 mg PO BID #60 tablet oxyCODONE /ACETAMINOPHEN [Percocet 5/325 mg] 1 tab PO Q6H PRN #12 tablet PRN Reason: Pain, Moderate (4-6) Promethazine [Phenergan] 25 mg PO Q6H PRN #10 tablet PRN Reason: Nausea And Vomiting Levothyroxine [Synthroid] 125 mcg PO DAILY #30 tablet Insulin Degludec [Tresiba Flextouch U-100] 8 units SUB-Q QAM 30 Days insuln.pen Sertraline [Zoloft] 25 mg PO QDAY #30 tablet
[2019-02-17] MEDS: PHENERGAN PO PRN (12:31)
[2019-02-17] MEDS: SODIUM CHLORIDE FLUSH SYRINGE 10 ML IV SCH (12:31)
[2019-02-17] MEDS ORDERED: FLUSH HEPARIN IV ONE (17:33)
== END 2019-02-17 20:45 | disposition home or self-care (01) | DRG 638 ==
LOC: ED 17:47 → CC1 23:16 → 4A 02-16 06:23
PROVIDERS: ADMIT Internal Medicine; ATTEND Hospitalist
DX: E11.00 Type 2 diabetes mellitus with hyperosmolarity without nonketotic hyperglycemic-hyperosmolar coma (NKHHC) (principal); E87.1 Hypo-osmolality and hyponatremia; R07.89 Other chest pain; E83.42 Hypomagnesemia; I12.9 Hypertensive chronic kidney disease with stage 1 through stage 4 chronic kidney disease, or unspecified chronic kidney disease; N18.3 Chronic kidney disease, stage 3 (moderate); E03.9 Hypothyroidism, unspecified; G40.909 Epilepsy, unspecified, not intractable, without status epilepticus; E11.22 Type 2 diabetes mellitus with diabetic chronic kidney disease; D53.9 Nutritional anemia, unspecified; F32.9 Major depressive disorder, single episode, unspecified; R55 Syncope and collapse; Z79.4 Long term (current) use of insulin; Z90.49 Acquired absence of other specified parts of digestive tract; Z88.0 Allergy status to penicillin; Z88.1 Allergy status to other antibiotic agents; Z79.899 Other long term (current) drug therapy
CPT/HCPCS: 36415; 70450; 71045; 80048; 81001; 82805; 82962; 83735; 84484; 84703; 85007; 85025; 85027; 87086; 87116; 93005; 93010; G0378; J1642; J1644; J1815; J2405; J3475; J3480; J7030; Q0169

== ENCOUNTER 2019-02-21 09:54 | Inpatient (IN) | payer MEDICAID ==
[2019-02-21] MEDS ORDERED: NACL 0.9% 1000 ML 1,000 ML IV ONE ×2 (10:16→11:27)
--- NOTE | 2019-02-21 10:16 | Emergency Department Report ---
ED General Adult HPI - General Chief complaint: Hyperglycemia Stated complaint: HYPERGLYCEMIA Time Seen by Provider: 02/21/19 10:13 Source: patient Mode of arrival: Stretcher Limitations: No Limitations - History of Present Illness Initial comments: This is a 28-year-old insulin-dependent diabetic who states that her sugar has been high for the last 3 days. This morning she gave herself 7 units of regular insulin. She states that she has been urinating frequently and nauseated but not vomiting. She does not complain of abdominal pain. She denies cough fever or chills. She has been known to be poorly compliant with her insulin regimen in the past. She has had a recent admission for hyperglycemia with non-ketotic state requiring an insulin drip. She has a history of chronic kidney disease. However her last recorded creatinine is 1.2. Per recent discharge summary: Patient is a 28 year old female with history of diabetes mellitus type 1 who presented to the ED on account of high blood sugar. Patient stated that her home glucometer was reading high despite taking her insulin. Patient was admitted with diagnosis of HONKS with initial blood sugar greater than 600. Patient was placed on IV insulin drip and then later transitioned to subcutaneous insulin. The patient has stabilization of her blood sugar returned back to her baseline. Patient is felt to have received maximal hospital benefit. Dedicated discharge time 32 minutes. Disposition: TO HOME OR SELFCARE Time spent for discharge: 32 - Discharge Diagnoses (1) CKD (chronic kidney disease) Status: Acute Qualifiers: Chronic kidney disease stage: unspecified stage Qualified Code(s): N18.9 - Chronic kidney disease, unspecified (2) Chest pain Status: Acute Qualifiers: Chest pain type: unspecified Qualified Code(s): R07.9 - Chest pain, unspecified (3) Hyperglycemia Status: Acute (4) Hyponatremia Status: Acute (5) Uncontrolled type 2 DM with hyperosmolar nonketotic hyperglycemia Status: Acute (6) Anemia Status: Chronic Qualifiers: Anemia type: unspecified type Qualified Code(s): D64.9 - Anemia, unspecified - Related Data Home Medications Medication Instructions Recorded Confirmed Last Taken Lispro Insulin [HumaLOG] 1 dose SUB-Q AC PRN 01/28/19 02/15/19 01/26/19 Previous Rx's Medication Instructions Recorded Last Taken Type Fludrocortisone [Florinef] 0.1 mg PO QAM #30 tablet 02/17/19 Unknown Rx Hydrocortisone [Cortef TAB] 5 mg PO QHS #30 tablet 02/17/19 Unknown Rx Hydrocortisone [Cortef TAB] 10 mg PO QAM #30 tablet 02/17/19 Unknown Rx Insulin Degludec [Tresiba 8 units SUB-Q QAM 30 Days 02/17/19 Unknown Rx Flextouch U-100] insuln.pen Levothyroxine [Synthroid] 125 mcg PO DAILY #30 tablet 02/17/19 Unknown Rx Lispro Insulin [HumaLOG] 0 unit SUB-Q ACHS units 02/17/19 Unknown Rx Promethazine [Phenergan] 25 mg PO Q6H PRN #10 tablet 02/17/19 Unknown Rx Sertraline [Zoloft] 25 mg PO QDAY #30 tablet 02/17/19 Unknown Rx levETIRAcetam [Keppra TAB] 500 mg PO BID #60 tablet 02/17/19 Unknown Rx oxyCODONE /ACETAMINOPHEN [Percocet 1 tab PO Q6H PRN #12 tablet 02/17/19 Unknown Rx 5/325 mg] Allergies Allergy/AdvReac Type Severity Reaction Status Date / Time Penicillins Allergy Angioedema Verified 12/31/18 16:01 vortioxetine Allergy Unknown Verified 12/31/18 16:01 [From Trintellix] ziprasidone [From Geodon] Allergy Angioedema Verified 12/31/18 16:01 vancomycin AdvReac Itching Verified 12/31/18 16:01 ED Review of Systems ROS: Stated complaint: HYPERGLYCEMIA Other details as noted in HPI ED Past Medical Hx - Past Medical History Previous Medical History?: Yes Hx Congestive Heart Failure: No Hx Diabetes: Yes Hx Renal Disease: Yes (2nd stage) Hx Seizures: Yes Hx Asthma: No Hx COPD: No Additional medical history: hypotension, hypothyroidism, Dante's disease, Depression, Celiac - Surgical History Past Surgical History?: Yes Hx Cholecystectomy: Yes Hx Appendectomy: Yes Additional Surgical History: 4. port right chest wall - Social History Smoking Status: Never Smoker Substance Use Type: None - Medications Home Medications: Home Medications Medication Instructions Recorded Confirmed Last Taken Type Lispro Insulin [HumaLOG] 1 dose SUB-Q AC PRN 01/28/19 02/15/19 01/26/19 History Fludrocortisone [Florinef] 0.1 mg PO QAM #30 tablet 02/17/19 Unknown Rx Hydrocortisone [Cortef TAB] 5 mg PO QHS #30 tablet 02/17/19 Unknown Rx Hydrocortisone [Cortef TAB] 10 mg PO QAM #30 tablet 02/17/19 Unknown Rx Insulin Degludec [Tresiba 8 units SUB-Q QAM 30 Days 02/17/19 Unknown Rx Flextouch U-100] insuln.pen Levothyroxine [Synthroid] 125 mcg PO DAILY #30 tablet 02/17/19 Unknown Rx Lispro Insulin [HumaLOG] 0 unit SUB-Q ACHS units 02/17/19 Unknown Rx Promethazine [Phenergan] 25 mg PO Q6H PRN #10 tablet 02/17/19 Unknown Rx Sertraline [Zoloft] 25 mg PO QDAY #30 tablet 02/17/19 Unknown Rx levETIRAcetam [Keppra TAB] 500 mg PO BID #60 tablet 02/17/19 Unknown Rx oxyCODONE /ACETAMINOPHEN [Percocet 1 tab PO Q6H PRN #12 tablet 02/17/19 Unknown Rx 5/325 mg] ED Physical Exam - General Limitations: No Limitations ED Course Vital Signs 02/21/19 02/21/19 02/21/19 10:08 10:14 11:06 Temperature 98.7 F Pulse Rate 75 65 Respiratory 16 16 16 Rate Blood Pressure 104/63 Blood Pressure 125/82 [Left] O2 Sat by Pulse 97 97 94 Oximetry - Reevaluation(s) Reevaluation #1: Given insulin and fluids. Referred to hospitalist staff for further care and evaluation. 02/21/19 11:57 ED Medical Decision Making - Lab Data Result diagrams: 02/21/19 10:37 02/21/19 10:37 Laboratory Results - last 24 hr 02/21/19 02/21/19 10:37 10:37 WBC 5.7 RBC 3.20 L Hgb 9.0 L Hct 27.0 L MCV 84 MCH 28 MCHC 33 RDW 17.5 H Plt Count 222 Lymph % (Auto) 53.2 H Johnson % (Auto) 2.9 Eos % (Auto) 3.6 Baso % (Auto) 2.0 H Lymph # 3.1 Johnson # 0.2 Eos # 0.2 Baso # 0.1 Seg Neutrophils % 38.3 L Seg Neutrophils # 2.2 Urine Color Colorless Urine Turbidity Clear Urine pH 6.0 Ur Specific [place] 1.017 Urine Protein <15 mg/dl Urine Glucose (UA) >=500 Urine Ketones Neg Urine Blood Neg Urine Nitrite Neg Urine Bilirubin Neg Urine Urobilinogen < 2.0 Ur Leukocyte Esterase Neg Urine WBC (Auto) 1.0 Urine RBC (Auto) 2.0 Laboratory Results - last 24 hr 02/21/19 02/21/19 02/21/19 10:37 10:37 10:37 WBC 5.7 RBC 3.20 L Hgb 9.0 L Hct 27.0 L MCV 84 MCH 28 MCHC 33 RDW 17.5 H Plt Count 222 Lymph % (Auto) 53.2 H Johnson % (Auto) 2.9 Eos % (Auto) 3.6 Baso % (Auto) 2.0 H Lymph # 3.1 Johnson # 0.2 Eos # 0.2 Baso # 0.1 Seg Neutrophils % 38.3 L Seg Neutrophils # 2.2 Sodium 127 L D Potassium 4.2 Chloride 85.9 L Carbon Dioxide 31 H Anion Gap 14 BUN 13 Creatinine 1.5 H Estimated GFR 41 BUN/Creatinine Ratio 9 Glucose 696 H* Calcium 8.3 L Urine Color Colorless Urine Turbidity Clear Urine pH 6.0 Ur Specific [place] 1.017 Urine Protein <15 mg/dl Urine Glucose (UA) >=500 Urine Ketones Neg Urine Blood Neg Urine Nitrite Neg Urine Bilirubin Neg Urine Urobilinogen < 2.0 Ur Leukocyte Esterase Neg Urine WBC (Auto) 1.0 Urine RBC (Auto) 2.0 Laboratory Results - last 24 hr 02/21/19 02/21/19 02/21/19 10:37 10:37 10:37 WBC 5.7 RBC 3.20 L Hgb 9.0 L Hct 27.0 L MCV 84 MCH 28 MCHC 33 RDW 17.5 H Plt Count 222 Lymph % (Auto) 53.2 H Johnson % (Auto) 2.9 Eos % (Auto) 3.6 Baso % (Auto) 2.0 H Lymph # 3.1 Johnson # 0.2 Eos # 0.2 Baso # 0.1 Seg Neutrophils % 38.3 L Seg Neutrophils # 2.2 Sodium 127 L D Potassium 4.2 Chloride 85.9 L Carbon Dioxide 31 H Anion Gap 14 BUN 13 Creatinine 1.5 H Estimated GFR 41 BUN/Creatinine Ratio 9 Glucose 696 H* Calcium 8.3 L Urine Color Colorless Urine Turbidity Clear Urine pH 6.0 Ur Specific [place] 1.017 Urine Protein <15 mg/dl Urine Glucose (UA) >=500 Urine Ketones Neg Urine Blood Neg Urine Nitrite Neg Urine Bilirubin Neg Urine Urobilinogen < 2.0 Ur Leukocyte Esterase Neg Urine WBC (Auto) 1.0 Urine RBC (Auto) 2.0 Critical care attestation.: If time is entered above; I have spent that time in minutes in the direct care of this critically ill patient, excluding procedure time. ED Disposition Clinical Impression: Secondary diabetes with hyperglycemia hyperosmolar non-ketotic coma Disposition: OP ADMIT IP TO THIS HOSP Is pt being admited?: Yes Does the pt Need Aspirin: Yes Condition: Stable Instructions: Diabetes Mellitus Type 2 in Adults (ED) Time of Disposition: 11:57
[2019-02-21 10:53] LABS: Basophils # (Auto) 0.1 K/mm3 (0.0-0.1); Eosinophils # (Auto) 0.2 K/mm3 (0.0-0.4); Eosinophils % (Auto) 3.6 % (0.0-4.3); Lymphocytes # (Auto) 3.1 K/mm3 (1.2-5.4); Lymphocytes % (Auto) 53.2 % (13.4-35.0); Mean Corpuscular HGB Conc 33 % (30-34); Mean Corpuscular Volume 84 fl (79-97); Monocytes # (Auto) 0.2 K/mm3 (0.0-0.8); Monocytes % (Auto) 2.9 % (0.0-7.3); Platelet Count 222 K/mm3 (140-440); Red Cell Distribution Width 17.5 % (13.2-15.2)
[2019-02-21 11:03] LABS: Bilirubin,Urine NEG (Negative); Blood,Urine NEG (Negative); Color,Urine Colorless (Yellow); Protein,Urine <15 mg/dL mg/dL (Negative); Urobilinogen,Urine < 2.0 mg/dL (<2.0)
[2019-02-21 11:15] LABS: Calcium 8.3 mg/dL (8.4-10.2)
[2019-02-21] MEDS ORDERED: HumuLIN R IV ONE (11:27)
--- NOTE | 2019-02-21 14:11 | History and Physical Report ---
History of Present Illness Chief complaint: My glucose is high History of present illness: 28 YO Female ALLEN resident at [facility] with DM, Addisons Disease, Hypothyroidism, presents to ED for evaluation. Pt states that she experienced high glucose levels over the past 3 days. Pt states that she has not been able to control her blood glucose levels. Pt acknowledges polydipsia, polyruia, generalized weakness, multiple episodes of nausea. EMS notified, and upon arrival the patient was found to be in distress and transported to [facility]. Pt seen and evaluated in ED and found to have Hyperglycemic Hyperosmolar Nonketotic State, Acute Kidney Injury, Hyponatremia. Pt admitted to medical floor and treated with supportive care. Pt symptoms improved with insulin therapy. Pt denies fever, chills, CP, Palpitations, NVD, Trauma, Productive cough, Skin rash, recent ill contacts, BRBPR, skin rash. Prior admission on 02/15/19 reviewed. All listed medication reconciled at time of admission. Past History Past Medical History: diabetes, hypothyroidism, seizures, other (Addisons Disease, Depression) Past Surgical History: appendectomy, cholecystectomy, , Other (Port Placement. ) Social history: single. denies: smoking, alcohol abuse, prescription drug abuse Family history: diabetes, other Medications and Allergies Allergies Allergy/AdvReac Type Severity Reaction Status Date / Time Penicillins Allergy Angioedema Verified 12/31/18 16:01 vortioxetine Allergy Unknown Verified 12/31/18 16:01 [From Trintellix] ziprasidone [From Geodon] Allergy Angioedema Verified 12/31/18 16:01 vancomycin AdvReac Itching Verified 12/31/18 16:01 Home Medications Medication Instructions Recorded Confirmed Last Taken Type Lispro Insulin [HumaLOG] 1 dose SUB-Q AC PRN 01/28/19 02/15/19 01/26/19 History Fludrocortisone [Florinef] 0.1 mg PO QAM #30 tablet 02/17/19 Unknown Rx Hydrocortisone [Cortef TAB] 5 mg PO QHS #30 tablet 02/17/19 Unknown Rx Hydrocortisone [Cortef TAB] 10 mg PO QAM #30 tablet 02/17/19 Unknown Rx Insulin Degludec [Tresiba 8 units SUB-Q QAM 30 Days 02/17/19 Unknown Rx Flextouch U-100] insuln.pen Levothyroxine [Synthroid] 125 mcg PO DAILY #30 tablet 02/17/19 Unknown Rx Lispro Insulin [HumaLOG] 0 unit SUB-Q ACHS units 02/17/19 Unknown Rx Promethazine [Phenergan] 25 mg PO Q6H PRN #10 tablet 02/17/19 Unknown Rx Sertraline [Zoloft] 25 mg PO QDAY #30 tablet 02/17/19 Unknown Rx levETIRAcetam [Keppra TAB] 500 mg PO BID #60 tablet 02/17/19 Unknown Rx oxyCODONE /ACETAMINOPHEN [Percocet 1 tab PO Q6H PRN #12 tablet 02/17/19 Unknown Rx 5/325 mg] Review of Systems Constitutional: no weight loss, no weight gain, no fever, no chills Ears, nose, mouth and throat: no ear pain, no ear discharge, no tinnitis, no decreased hearing, no nose pain, no nasal congestion Breasts: no change in shape, no swelling, no mass Cardiovascular: no chest pain, no orthopnea, no palpitations, no rapid/irregular heart beat, no edema, no syncope Respiratory: no cough, no cough with sputum, no excessive sputum, no hemoptysis, no shortness of breath Gastrointestinal: no nausea, no vomiting, no diarrhea, no constipation Genitourinary Female: no pelvic pain, no flank pain, no menorrhagia, no dysuria, no urinary frequency, no urgency, no stress incontinence Rectal: no pain, no incontinence, no bleeding Musculoskeletal: no neck stiffness, no neck pain, no arm numbness/tingling, no low back pain, no shooting leg pain, no leg numbness/tingling Integumentary: no rash, no pruritis, no redness, no sores, no wounds Neurological: no head injury, no paralysis, no weakness, no parathesias, no numbness, no tingling, no seizures Psychiatric: no anxiety, no memory loss, no sleep disturbances, no hypersomnia, no change in appetite, no suicidal ideation Endocrine: polyphagia, excessive thirst, polydipsia, polyuria, high blood sugars , no cold intolerance, no heat intolerance, no excessive sweating, no deepening of the voice, no thyroid mass, no palpatations Hematologic/Lymphatic: no easy bruising, no easy bleeding, no lymphadenopathy, no lymphedema Allergic/Immunologic: no urticaria, no allergic rhinitis, no wheezing, no persistent infections, no anaphylaxis, no angioedema Exam - Constitutional Vitals: Temp Pulse Resp BP Pulse Ox 98.7 F 65 16 133/65 100 02/21/19 10:08 02/21/19 14:00 02/21/19 14:00 02/21/19 14:00 02/21/19 14:00 General appearance: Present: mild distress - EENT Eyes: Present: PERRL ENT: hearing intact, clear oral mucosa - Neck Neck: Present: supple, normal ROM - Respiratory Respiratory effort: normal Respiratory: bilateral: CTA - Cardiovascular Heart Sounds: Present: S1 & S2. Absent: rub, click - Extremities Extremities: pulses symmetrical, No edema Peripheral Pulses: within normal limits - Abdominal General gastrointestinal: Present: soft, non-tender, non-distended, normal bowel sounds Female genitourinary: Present: normal - Integumentary Integumentary: Present: clear, warm, dry - Musculoskeletal Musculoskeletal: gait normal, strength equal bilaterally - Psychiatric Psychiatric: appropriate mood/affect, intact judgment & insight - Neurologic Neurologic: CNII-XII intact, moves all extremities Results - Labs CBC & Chem 7: 02/21/19 10:37 02/21/19 Unknown Labs: Abnormal lab results 02/21/19 02/21/19 02/21/19 Range/Units 10:37 10:37 Unknown RBC 3.20 L (3.65-5.03) M/mm3 Hgb 9.0 L (10.1-14.3) gm/dl Hct 27.0 L (30.3-42.9) % RDW 17.5 H (13.2-15.2) % Lymph % (Auto) 53.2 H (13.4-35.0) % Baso % (Auto) 2.0 H (0.0-1.8) % Seg Neutrophils % 38.3 L (40.0-70.0) % Sodium 127 L D (137-145) mmol/L Chloride 85.9 L (98-107) mmol/L Carbon Dioxide 31 H (22-30) mmol/L Creatinine 1.5 H (0.7-1.2) mg/dL Glucose 696 H* 432 H (65-100) mg/dL Calcium 8.3 L (8.4-10.2) mg/dL Assessment and Plan - Patient Problems (1) Secondary diabetes with hyperglycemia hyperosmolar non-ketotic coma Current Visit: Yes Status: Acute Plan to address problem: ADA diet, insulin, accu check, hypoglycemia protocol, IVF resuscitation therapy, (2) ARF (acute renal failure) with tubular necrosis Current Visit: No Status: Acute Plan to address problem: IVF resuscitation therapy, urine electrolytes, continue supportive care. 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 (4) Hyponatremia syndrome Current Visit: No Status: Acute Plan to address problem: IVF resuscitation therapy, treat uncontrolled diabetes. (5) Seizure disorder Current Visit: No Status: Acute Plan to address problem: Supportive care, continue current therapy, no seizure activity at time of admission. (6) DVT prophylaxis Current Visit: No Status: Acute Plan to address problem: SCD to BLE while in bed, Prophylactic heparin
[2019-02-21] MEDS ORDERED: TYLENOL PO PRN (14:12)
[2019-02-21] MEDS ORDERED: PROVENTIL IH PRN (14:12)
[2019-02-21] MEDS ORDERED: SODIUM CHLORIDE FLUSH SYRINGE 10 ML IV PRN (14:12)
[2019-02-21] MEDS ORDERED: D50W (25GM) Syringe IV PRN (14:16)
[2019-02-21] MEDS ORDERED: ZOFRAN IV ONE (14:21)
[2019-02-21] MEDS ORDERED: NACL 0.45% 3,000 ML IV SCH (15:00)
[2019-02-21] MEDS: HumaLOG SUB-Q SCH (18:43)
[2019-02-21] MEDS: NACL 0.45% 1000 ML 1,000 ML IV SCH (20:38)
[2019-02-21] MEDS: ZOFRAN IV PRN (22:19)
[2019-02-21] MEDS: HEPARIN SUB-Q SCH (22:20)
[2019-02-21] MEDS: SODIUM CHLORIDE FLUSH SYRINGE 10 ML IV SCH (22:20)
[2019-02-22] MEDS: HumaLOG SUB-Q SCH ×2 (00:44→06:22)
[2019-02-22] MEDS: NACL 0.45% 1000 ML 1,000 ML IV SCH ×2 (04:20→12:53)
[2019-02-22 06:45] LABS: Hematocrit 24.4 % (30.3-42.9); Mean Corpuscular HGB Conc 33 % (30-34); Mean Corpuscular Volume 84 fl (79-97); Platelet Count 207 K/mm3 (140-440); Red Blood Count 2.91 M/mm3 (3.65-5.03); Red Cell Distribution Width 17.7 % (13.2-15.2)
[2019-02-22 07:12] LABS: Albumin 2.9 g/dL (3.9-5); Calcium 7.7 mg/dL (8.4-10.2)
[2019-02-22 07:35] LABS: Total Cells Counted 100
[2019-02-22 07:36] LABS: Basophils % (Manual) 0 % (0.0-1.8); Eosinophils % (Manual) 0 % (0.0-4.3); Monocytes % (Manual) 0 % (0.0-7.3)
[2019-02-22 07:37] LABS: Anisocytosis Few; Platelet Estimate Consistent w Auto
[2019-02-22] MEDS: HEPARIN SUB-Q SCH (09:00)
[2019-02-22] MEDS ORDERED: D50W (25GM) Syringe IV PRN (10:35)
[2019-02-22] MEDS: SODIUM CHLORIDE FLUSH SYRINGE 10 ML IV SCH (11:07)
[2019-02-22] MEDS: ZOFRAN IV PRN (11:07)
[2019-02-22] MEDS ORDERED: HumaLOG SUB-Q SCH (11:30)
[2019-02-22] MEDS ORDERED: PERCOCET 5/325 PO PRN (11:57)
[2019-02-22] MEDS ORDERED: PHENERGAN PO PRN (11:57)
[2019-02-22] MEDS ORDERED: KEPPRA PO SCH (13:00)
[2019-02-22 13:13] VITALS: BP 119/85
--- NOTE | 2019-02-22 13:37 | Discharge Summary ---
Providers - Providers Date of Admission: 02/21/19 14:12 Date of discharge: 02/22/19 Attending physician: OTF BARNES [facility] care [facility]: [facility] Hospitalization Condition: Stable Hospital course: 28 YO Female patient resident at [facility] multiple admissions in the past , noncompliant with medications , with past medical history of insulin-dependent DM with labile blood sugars, Addisons Disease, chronic hypotension ,Hypothyroidism, and seizure disorder was admitted through ED with history of uncontrolled blood sugars for the last 2 days . Initial evaluation was consistent with hyperosmolar nonketotic hyperglycemia syndrome, patient did not have acidosis ketosis. Placed on iv fluid, adjusted insulin dose, sugars were stabilized , patient had one episode of very low blood sugars, Patient's medications adjusted and she was brought to reasonable level. Patient advised to follow jewel grinder upon discharge. Patient's A1c in November 2018 is more than 12. Patient also counseled the importance of adhering to the treatment, diet and follow-up plan. Patient verbalized understanding, is hemodynamically and clinically stable at discharge. Discharge diagnosis: /-Episodes of hypoglycemia; resolved patient has very labile blood sugars with intermittent hypoglycemia, Adjusted insulin dose, encouraged patient to comply with regular meals and to adjust insulin dose with carb count / Hyperosmolar nonketotic hyperglycemia, POA Managed with iv fluid, consistent carb diet, Long-acting insulin and SSI. 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 /-H/O Seizure continue keppra therapy, Disposition: home with . Stable at discharge Disposition: [id number] HOME UNDER HOME [facility] Time spent for discharge: 34 minutes Core Measure Documentation - Palliative Care Palliative Care/ Comfort Measures: Not Applicable - Core Measures Any of the following diagnoses?: none Exam - Constitutional Vitals: Temp Pulse Resp BP Pulse Ox 98.7 F 69 16 119/85 100 02/22/19 12:48 02/22/19 12:48 02/22/19 12:48 02/22/19 12:48 02/22/19 12:48 General appearance: Present: no acute distress, well-nourished - EENT Eyes: Present: PERRL ENT: hearing intact, clear oral mucosa - Neck Neck: Present: supple, normal ROM - Respiratory Respiratory effort: normal Respiratory: bilateral: CTA - Cardiovascular Heart Sounds: Present: S1 & S2. Absent: rub, click - Extremities Extremities: pulses symmetrical, No edema Peripheral Pulses: within normal limits - Abdominal General gastrointestinal: Present: soft, non-tender, non-distended, normal bowel sounds - Integumentary Integumentary: Present: clear, warm, dry - Musculoskeletal Musculoskeletal: gait normal, strength equal bilaterally - Psychiatric Psychiatric: appropriate mood/affect, intact judgment & insight - Neurologic Neurologic: CNII-XII intact, moves all extremities Plan Activity: advance as tolerated Weight Bearing Status: Weight Bear as Tolerated Diet: diabetic Additional Instructions: f/u with jewel grinder in one week Follow up with: ZAINA LONDONO MD [Primary Care Provider] - 7 Days
[2019-02-22] MEDS ORDERED: TRIPLE ANTIBIOTIC TP ONE (13:49)
[2019-02-22] MEDS ORDERED: FLUSH HEPARIN IV ONE (13:50)
[2019-02-22 15:54] LABS: Amphetamine Screen,Urine PRESUMPTIVE NEGATIVE; Benzodiazepines Screen,Urine PRESUMPTIVE NEGATIVE; Cannabinoid Screen,Urine PRESUMPTIVE NEGATIVE; Cocaine Screen,Urine PRESUMPTIVE NEGATIVE; Methadone Screen,Urine PRESUMPTIVE NEGATIVE; Opiate Screen,Urine PRESUMPTIVE NEGATIVE
[2019-02-22] MEDS ORDERED: CORTEF PO SCH (22:00)
[2019-02-23] MEDS ORDERED: SYNTHROID PO SCH ×2 (06:00→10:00)
[2019-02-23] MEDS ORDERED: FLORINEF PO SCH (10:00)
[2019-02-23] MEDS ORDERED: CORTEF PO SCH (10:00)
[2019-02-23] MEDS ORDERED: ZOLOFT PO SCH (10:00)
== END 2019-02-22 15:44 | disposition home health service (06) | DRG 637 ==
LOC: ED 09:54 → 3A 14:12
PROVIDERS: ADMIT Internal Medicine; ATTEND Internal Medicine
DX: E11.00 Type 2 diabetes mellitus with hyperosmolarity without nonketotic hyperglycemic-hyperosmolar coma (NKHHC) (principal); N17.0 Acute kidney failure with tubular necrosis; E87.1 Hypo-osmolality and hyponatremia; E27.1 Primary adrenocortical insufficiency; R07.9 Chest pain, unspecified; D64.9 Anemia, unspecified; N18.2 Chronic kidney disease, stage 2 (mild); E03.9 Hypothyroidism, unspecified; E11.22 Type 2 diabetes mellitus with diabetic chronic kidney disease; F32.9 Major depressive disorder, single episode, unspecified; G40.909 Epilepsy, unspecified, not intractable, without status epilepticus; Z90.49 Acquired absence of other specified parts of digestive tract; Z83.3 Family history of diabetes mellitus; Z88.0 Allergy status to penicillin; Z88.1 Allergy status to other antibiotic agents; Z88.8 Allergy status to other drugs, medicaments and biological substances; Z79.4 Long term (current) use of insulin; Z79.899 Other long term (current) drug therapy
CPT/HCPCS: 36415; 80048; 80053; 80307; 81001; 82947; 82962; 85007; 85025; 87116; 96361; 96374; G0378; A6250; J1642; J1644; J1815; J2405; J7030

== ENCOUNTER 2019-02-23 12:43 | Inpatient (IN) | payer MEDICAID ==
[2019-02-23] MEDS ORDERED: REGLAN IV ONE (13:12)
[2019-02-23] MEDS ORDERED: ZOSTRIX HP TP STA (13:12)
[2019-02-23 13:38] LABS: Hematocrit 25.9 % (30.3-42.9); Hemoglobin 8.4 gm/dl (10.1-14.3); Mean Corpuscular HGB Conc 33 % (30-34); Mean Corpuscular Volume 87 fl (79-97); Platelet Count 190 K/mm3 (140-440); Red Blood Count 2.98 M/mm3 (3.65-5.03); Red Cell Distribution Width 17.6 % (13.2-15.2)
--- NOTE | 2019-02-23 13:39 | Emergency Department Report ---
ED General Adult HPI - General Chief complaint: Hyperglycemia Stated complaint: HIGH BLOOD SUGAR Time Seen by Provider: 02/23/19 12:50 Source: patient, EMS (EMS documentation not available at the time of chart dictation), RN notes reviewed, old records reviewed Mode of arrival: Stretcher Limitations: No Limitations - History of Present Illness Initial comments: This is a 28-year-old female. I have evaluated this patient in the past. The patient is a resident at [facility]. Past medical history includes: Insulin-dependent diabetes, labile blood sugars, Hard[place]'s disease, chronic hypotension, hypothyroidism, seizure disorder, renal insufficiency, on chronic steroids, multiple evaluations in this department and hospital for hyperglycemia and occasionally hypoglycemia. The patient was discharged yesterday for hyperglycemia. The patient presents today with a complaint of recurrent hyperglycemia. She states that she checked her Accu-Chek at home and "it was high." She also complains of concomitant body aches, and sensation of nausea, vomiting. There is no abdominal pain, there is no endorsement of chest pain. Symptoms constant, do not radiate anywhere, worse when she eats, however, she is able to drink, and decreased with rest. She denies urinary symptoms. She recently had an unremarkable urinalysis. -: Gradual Location: left, right, upper extremity, lower extremity Radiation: other Quality: other Consistency: other Improves with: other Worsens with: other - Related Data Previous Rx's Medication Instructions Recorded Last Taken Type Fludrocortisone [Florinef] 0.1 mg PO QAM #30 tablet 02/17/19 02/21/19 08:00 Rx Hydrocortisone [Cortef TAB] 5 mg PO QHS #30 tablet 02/17/19 Unknown Rx Hydrocortisone [Cortef TAB] 10 mg PO QAM #30 tablet 02/17/19 02/21/19 08:00 Rx Insulin Degludec [Tresiba 8 units SUB-Q QAM 30 Days 02/17/19 02/21/19 08:00 Rx Flextouch U-100] insuln.pen Levothyroxine [Synthroid] 125 mcg PO DAILY #30 tablet 02/17/19 02/21/19 08:00 Rx Lispro Insulin [HumaLOG] 0 unit SUB-Q ACHS units 02/17/19 Unknown Rx Promethazine [Phenergan] 25 mg PO Q6H PRN #10 tablet 02/17/19 Unknown Rx Sertraline [Zoloft] 25 mg PO QDAY #30 tablet 02/17/19 02/21/19 08:00 Rx levETIRAcetam [Keppra TAB] 500 mg PO BID #60 tablet 02/17/19 02/21/19 08:00 Rx oxyCODONE /ACETAMINOPHEN [Percocet 1 tab PO Q6H PRN #12 tablet 02/17/19 Unknown Rx 5/325 mg] Allergies Allergy/AdvReac Type Severity Reaction Status Date / Time Penicillins Allergy Angioedema Verified 12/31/18 16:01 vortioxetine Allergy Unknown Verified 12/31/18 16:01 [From Trintellix] ziprasidone [From Geodon] Allergy Angioedema Verified 12/31/18 16:01 vancomycin AdvReac Itching Verified 12/31/18 16:01 ED Review of Systems ROS: Stated complaint: HIGH BLOOD SUGAR Other details as noted in HPI Constitutional: malaise, weakness. denies: fever Eyes: denies: eye discharge ENT: denies: epistaxis Respiratory: denies: wheezing Cardiovascular: denies: syncope Gastrointestinal: nausea, vomiting Genitourinary: denies: dysuria Musculoskeletal: arthralgia, myalgia Skin: denies: lesions Neurological: weakness ED Past Medical Hx - Past Medical History Previous Medical History?: Yes Hx Congestive Heart Failure: No Hx Diabetes: Yes (type 1) Hx Renal Disease: Yes Hx Seizures: Yes Hx Asthma: No Hx COPD: No Additional medical history: hypotension, hypothyroidism, Harding's disease, Depression, Celiac - Surgical History Hx Cholecystectomy: Yes Hx Appendectomy: Yes Additional Surgical History: 4. port right chest wall - Social History Smoking Status: Never Smoker Substance Use Type: None - Medications Home Medications: Home Medications Medication Instructions Recorded Confirmed Last Taken Type Fludrocortisone [Florinef] 0.1 mg PO QAM #30 tablet 02/17/19 02/22/19 02/21/19 08:00 Rx Hydrocortisone [Cortef TAB] 5 mg PO QHS #30 tablet 02/17/19 02/22/19 Unknown Rx Hydrocortisone [Cortef TAB] 10 mg PO QAM #30 tablet 02/17/19 02/22/19 02/21/19 08:00 Rx Insulin Degludec [Tresiba 8 units SUB-Q QAM 30 Days 02/17/19 02/22/19 02/21/19 08:00 Rx Flextouch U-100] insuln.pen Levothyroxine [Synthroid] 125 mcg PO DAILY #30 tablet 02/17/19 02/22/19 02/21/19 08:00 Rx Lispro Insulin [HumaLOG] 0 unit SUB-Q ACHS units 02/17/19 02/22/19 Unknown Rx Promethazine [Phenergan] 25 mg PO Q6H PRN #10 tablet 02/17/19 02/22/19 Unknown Rx Sertraline [Zoloft] 25 mg PO QDAY #30 tablet 02/17/19 02/22/19 02/21/19 08:00 Rx levETIRAcetam [Keppra TAB] 500 mg PO BID #60 tablet 02/17/19 02/22/19 02/21/19 08:00 Rx oxyCODONE /ACETAMINOPHEN [Percocet 1 tab PO Q6H PRN #12 tablet 02/17/19 02/22/19 Unknown Rx 5/325 mg] ED Physical Exam - General Limitations: No Limitations General appearance: alert, in no apparent distress - Head Head exam: Present: atraumatic, normocephalic - Eye Eye exam: Present: normal appearance, EOMI. Absent: nystagmus - ENT ENT exam: Present: normal exam, normal orophraynx, mucous membranes moist, normal external ear exam - Neck Neck exam: Present: normal inspection, full ROM. Absent: tenderness, meningismus - Respiratory Respiratory exam: Present: normal lung sounds bilaterally. Absent: respiratory distress, chest wall tenderness - Cardiovascular Cardiovascular Exam: Present: regular rate, normal rhythm, normal heart sounds. Absent: bradycardia, tachycardia, irregular rhythm, systolic murmur, diastolic murmur, rubs, gallop - GI/Abdominal GI/Abdominal exam: Present: soft. Absent: distended, tenderness, guarding, rebound, rigid, pulsatile mass - Extremities Exam Extremities exam: Present: normal inspection, full ROM, other (2+ pulses noted in the bilateral upper, lower extremities. There is no long bony tenderness. The pelvis is stable. Muscular compartments are soft.). Absent: pedal edema, joint swelling, calf tenderness - Back Exam Back exam: Present: normal inspection, full ROM. Absent: tenderness, CVA tenderness (R), CVA tenderness (L), paraspinal tenderness, vertebral tenderness - Neurological Exam Neurological exam: Present: alert, other (there is no facial droop. The tongue is midline. The extraocular movements are intact bilaterally. 5/ 5 strength bilateral upper, lower extremities. Sensation intact to light touch bilateral upper, lower extremities bilaterally. Sensation is intact to light touch in the bilateral V1, V2, V3 distribution.). Absent: motor sensory deficit - Psychiatric Psychiatric exam: Present: flat affect - Skin Skin exam: Present: warm, dry, intact, normal color. Absent: rash ED Course Vital Signs 02/23/19 02/23/19 02/23/19 12:42 12:45 12:46 Temperature 98.2 F Pulse Rate 83 Respiratory 16 Rate Blood Pressure 119/87 121/83 O2 Sat by Pulse 83 L 100 97 Oximetry 02/23/19 13:00 Temperature Pulse Rate Respiratory Rate Blood Pressure 121/83 O2 Sat by Pulse 99 Oximetry - Reevaluation(s) Reevaluation #1: 02/23/19 13:37 Differential diagnosis, including not limited to: Dehydration, hyperglycemia, hy perosmolar state, diabetic ketoacidosis, renal insufficiency, abnormality Assessment and plan: 28-year-old female with recurrent presentation of hyperglycemia, no active vomiting at this time, we will check basic laboratory studies, treat her symptoms, and reassess. May have a component of gastrop aresis. Reevaluation #2: 02/23/19 14:50 found to have extreme hyperglycemia, without anion gap, pseudohyponatremia and hypomagnesemia Dr Han to admit ED Medical Decision Making - Lab Data Result diagrams: 02/23/19 13:26 02/23/19 13:26 Vital Signs 02/23/19 12:45 Temperature 98.2 F Pulse Rate 83 Respiratory 16 Rate Blood Pressure 119/87 O2 Sat by Pulse 100 Oximetry Lab Results 02/23/19 02/23/19 02/23/19 Range/Units 13:08 13:26 13:26 WBC 3.9 L (4.5-11.0) K/mm3 RBC 2.98 L (3.65-5.03) M/mm3 Hgb 8.4 L (10.1-14.3) gm/dl Hct 25.9 L (30.3-42.9) % MCV 87 (79-97) fl MCH 28 (28-32) pg MCHC 33 (30-34) % RDW 17.6 H (13.2-15.2) % Plt Count 190 (140-440) K/mm3 VBG pH (7.320-7.420) Sodium 124 L D (137-145) mmol/L Potassium 5.0 D (3.6-5.0) mmol/L Chloride 86.8 L (98-107) mmol/L Carbon Dioxide 28 (22-30) mmol/L Anion Gap 14 mmol/L BUN 16 (7-17) mg/dL Creatinine 1.7 H (0.7-1.2) mg/dL Estimated GFR 36 ml/min BUN/Creatinine Ratio 9 % Glucose 871 H* (65-100) mg/dL POC Glucose > 500 H (70-105) Calcium 8.2 L (8.4-10.2) mg/dL Magnesium 1.50 L (1.7-2.3) mg/dL Total Creatine Kinase 34 (30-135) units/L HCG, Quant (0-4) mIU/mL 02/23/19 02/23/19 Range/Units 13:26 13:26 WBC (4.5-11.0) K/mm3 RBC (3.65-5.03) M/mm3 Hgb (10.1-14.3) gm/dl Hct (30.3-42.9) % MCV (79-97) fl MCH (28-32) pg MCHC (30-34) % RDW (13.2-15.2) % Plt Count (140-440) K/mm3 VBG pH 7.334 (7.320-7.420) Sodium (137-145) mmol/L Potassium (3.6-5.0) mmol/L Chloride (98-107) mmol/L Carbon Dioxide (22-30) mmol/L Anion Gap mmol/L BUN (7-17) mg/dL Creatinine (0.7-1.2) mg/dL Estimated GFR ml/min BUN/Creatinine Ratio % Glucose (65-100) mg/dL POC Glucose (70-105) Calcium (8.4-10.2) mg/dL Magnesium (1.7-2.3) mg/dL Total Creatine Kinase (30-135) units/L HCG, Quant < 2 (0-4) mIU/mL - EKG Data -: EKG Interpreted by Me EKG shows normal: sinus rhythm Rate: normal - EKG Data 02/23/19 14:51 This is a sinus rhythm, 79 bpm, normal axis, QTC prolonged, WI interval prolonged, poor PROGRESSION, low voltage, the EKG is abnormal, the EKG is not consistent with ST elevation myocardial infarction. Critical Care Time: Yes Critical care time in (mins) excluding proc time.: 35 Critical care attestation.: If time is entered above; I have spent that time in minutes in the direct care of this critically ill patient, excluding procedure time. ED Disposition Clinical Impression: Hyperglycemia, Acute kidney injury Disposition: -09 OP ADMIT IP TO THIS HOSP Is pt being admited?: Yes Condition: Fair Referrals: PRIMARY CARE, [Primary Care Provider] - 3-5 Days
[2019-02-23 14:05] LABS: Calcium 8.2 mg/dL (8.4-10.2)
[2019-02-23] MEDS ORDERED: MAGNESIUM SULFATE 2GM/50ML 2 GM/50 ML BAG IV ONE (14:36)
[2019-02-23] MEDS ORDERED: HumuLIN R IV ONE (14:36)
[2019-02-23] MEDS ORDERED: NACL 0.9% 1000 ML 1,000 ML IV ONE ×2 (14:36→20:00)
[2019-02-23] MEDS ORDERED: SODIUM CHLORIDE FLUSH SYRINGE 10 ML IV PRN (19:37)
[2019-02-23] MEDS ORDERED: PERCOCET 5/325 PO PRN (19:37)
[2019-02-23] MEDS ORDERED: KCL 10MEQ/100ML 10 MEQ/100 ML BAG IV ONE (19:56)
[2019-02-23] MEDS ORDERED: KCL 10MEQ/100ML 10 MEQ/100 ML BAG IV SCH ×2 (20:00)
[2019-02-23] MEDS ORDERED: HumuLIN R 100 UNITS in NACL 0.9% 99 ML IV SCH (20:00)
[2019-02-23] MEDS ORDERED: D5W/0.45% NACL/KCL 20 MEQ 20 MEQ/1,000 ML BAG IV SCH (20:00)
--- NOTE | 2019-02-23 20:00 | Event Note ---
Date: 02/23/19 See H/amina reports Hyperosmolar non ketotic state in Diabetes with out coma Addisons disease Seizure disorder Hypothyroidism
[2019-02-23 20:52] LABS: Calcium 8.4 mg/dL (8.4-10.2)
[2019-02-23] MEDS ORDERED: NACL 0.9% 1000 ML 1,000 ML ONE (20:55)
[2019-02-23] MEDS ORDERED: D5W/0.45% NACL/KCL 20 MEQ 20 MEQ/1,000 ML BAG IV ONE (21:18)
[2019-02-23] MEDS ORDERED: ZOLOFT ONE (23:38)
[2019-02-23] MEDS ORDERED: KEPPRA PO ONE (23:38)
[2019-02-23] MEDS ORDERED: D50W (25GM) Syringe IV ONE (23:38)
[2019-02-23] MEDS: KEPPRA PO SCH (23:49)
[2019-02-23] MEDS: D50W (25GM) Syringe IV PRN (23:49)
[2019-02-23] MEDS: ZOLOFT PO SCH (23:49)
[2019-02-23] MEDS: SODIUM CHLORIDE FLUSH SYRINGE 10 ML IV SCH (23:49)
[2019-02-24 00:24] LABS: Calcium 7.8 mg/dL (8.4-10.2)
[2019-02-24 05:27] LABS: Hematocrit 24.8 % (30.3-42.9); Hemoglobin 8.4 gm/dl (10.1-14.3); Mean Corpuscular HGB Conc 34 % (30-34); Mean Corpuscular Volume 83 fl (79-97); Platelet Count 217 K/mm3 (140-440); Red Blood Count 2.98 M/mm3 (3.65-5.03)
[2019-02-24 05:30] LABS: Albumin 3.2 g/dL (3.9-5); Calcium 8.2 mg/dL (8.4-10.2)
--- NOTE | 2019-02-24 06:19 | History and Physical Report ---
CHIEF COMPLAINT: High blood glucose levels. HISTORY OF PRESENT ILLNESS: A 28-year-old female with history of type 1 diabetes, noncompliant with her medications, recently discharged yesterday after a couple of days admission for nonketotic hyperosmolar state in diabetes, comes in again for high blood glucose levels of about 800. The patient was only discharged yesterday. She checked her Accu-Cheks at home and it was high because of which she came here. She also complains of body aches and nausea and vomiting. Vomiting couple of times. No fever or chills. No recent travel. Very noncompliant with her insulin. PAST MEDICAL HISTORY: Significant for [place]'s disease, insulin-dependent diabetes, hypothyroidism, depression, seizure disorder. PAST SURGICAL HISTORY: Cholecystectomy, appendectomy, and x 4 and has a port in the right chest wall. SOCIAL HISTORY: Does not smoke. No alcohol, no recreational drugs. FAMILY HISTORY: Significant for hypertension. CURRENT MEDICATIONS: On the chart including Florinef 0.1 mg q.a.m. and Cortef tablets 5 mg p.o. at bedtime. Tresiba 8 units subcutaneous a.m. and Synthroid 125 mcg daily. REVIEW OF SYSTEMS: Significant for nausea, vomiting x 2 and increased weakness and lethargy. Otherwise, review of systems negative. PHYSICAL EXAMINATION: GENERAL: Young female, cooperative during examination. VITAL SIGNS: Blood pressure is 95/61, ranging to 100/72, temperature 97.7, pulse is 65, respirations are 18. HEENT: Unremarkable. Tongue dry. NECK: Supple, no lymphadenopathy, no thyromegaly. LUNGS: Clear to auscultation and percussion. Good air entry. CARDIOVASCULAR: S1, S2 heard. No gallop, no murmur, no rub. Apical impulse in left fifth intercostal space in midclavicular line. ABDOMEN: Soft and benign. No hepatosplenomegaly. No guarding, no rigidity. Hernial orifices are normal. EXTREMITIES: Good pedal pulses. No pedal edema. CENTRAL NERVOUS SYSTEM: Alert. The patient is slightly lethargic. Altered sensorium. Moves all 4 extremities. No focal deficits. LABORATORY DATA: Significant for white count of 3900, hemoglobin of 8.4 and hematocrit of 25.9, platelet count of 190. Sodium is 124, potassium is 5.0, chloride is 86.8, BUN and creatinine are 16 and 1.7, glucose is 871. Repeat calcium is 8.2. Toxicology was negative. EKG shows sinus rhythm, heart rate of 79 per minute, no acute ST-T wave changes, low voltage criteria. ASSESSMENT AND PLAN: 1. Hyperosmolar nonketotic state in diabetes. The patient admitted to ICU with IV insulin drip and DKA protocol. The patient's blood glucose levels improved to around 160 in the Emergency Room and her nausea and vomiting also subsided and got much better. The patient was downgraded to medical surgical floor with remote telemetry. The patient counseled about regular intake of long-acting and short-acting insulin. The patient to be discharged on Tresiba with increased dosage of 15 units in the morning and also regular insulin before each meal, ranging up to 8 units depending on her response and if it does not cause hypoglycemic episodes. 2. Hypothyroidism. Continue levothyroxine. 3. Seizure disorder. Continue Keppra 500 b.i.d. 4. Depression. Continue sertraline 25 mg once a day. 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 6. Deep venous thrombosis prophylaxis, Lovenox and gastrointestinal prophylaxis. The patient downgraded from ICU. No critical care time. JOB# [id number] SIGRID/MARINO CORBIN
[2019-02-24] MEDS: SYNTHROID PO SCH (06:26)
[2019-02-24] MEDS: HumaLOG SUB-Q SCH ×4 (07:30→22:23)
[2019-02-24] MEDS: CORTEF PO SCH ×3 (08:00→20:30)
[2019-02-24 08:10] LABS: Basophils % (Manual) 0 % (0.0-1.8); Total Cells Counted 100
[2019-02-24 08:11] LABS: Platelet Estimate Consistent w Auto; RBC Morphology Normal
[2019-02-24] MEDS: ZOLOFT PO SCH (10:00)
[2019-02-24] MEDS ORDERED: LANTUS SUB-Q SCH (10:00)
[2019-02-24] MEDS ORDERED: INSULIN DEGLUDEC 8 UNIT SUB-Q SCH (10:00)
[2019-02-24] MEDS ORDERED: LOVENOX SUB-Q SCH (10:00)
[2019-02-24] MEDS: FLORINEF PO SCH (10:27)
[2019-02-24] MEDS: KEPPRA PO SCH ×2 (10:27→22:23)
[2019-02-24] MEDS: SODIUM CHLORIDE FLUSH SYRINGE 10 ML IV SCH ×2 (10:31→22:23)
--- NOTE | 2019-02-24 13:51 | Progress Note ---
Assessment and Plan /-Episodes of hypoglycemia; resolved patient has h/o very labile blood sugars with intermittent hypoglycemia, Adjust insulin dose as needed, encouraged patient to comply with regular meals and to adjust insulin dose with carb count / Hyperosmolar nonketotic hyperglycemia in type 1 diabetes mellitus, POA Presentation blood glucose was greater than 800, admitted to ICU on insulin drip Now off insulin drip and placed on iv fluid, consistent carb diet, Long-acting insulin and SSI. 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 /Anemia of chronic disease, continue to monitor H&H /-H/O Seizure continue keppra therapy, /DVT prophylaxis, continue Lovenox Brief History: 28 YO Female patient resident at [facility] multiple admissions in the past , noncompliant with medications , with past medical history of insulin-dependent DM with labile blood sugars, Addisons Disease, chronic hypotension ,Hypothyroidism, and seizure disorder was admitted through ED with history of uncontrolled blood sugar . Initial evaluation was consistent with hyperosmolar nonketotic hyperglycemia syndrome, patient did not have acidosis ketosis. Patient was admitted for further medication management. Of note she was discharged just a couple days ago after being treated for similar presentation. Hospitalist Physical exam: GENERAL: well-developed and well-nourished lying on bed appeared to be in no discomfort. HEENT: Normocephalic. Atraumatic. No conjunctival congestion or icterus. Patient has moist mucous membranes. NECK: Supple. Trachea midline. CHEST/LUNGS: Clear to auscultated bilaterally, breathing nonlabored. No wheezes crackles or rhonchi. HEART/CARDIOVASCULAR: Regular in rate and rhythm. S1 and S2 positive. ABDOMEN: Abdomen is soft, nontender. Patient has normal bowel sounds. SKIN: There is no rash. Warm and dry. NEURO: No focal motor deficit. Follows command. MUSCULOSKELETAL: No joint effusion or tenderness. EXTRIMITY: No edema, no cyanosis or clubbing. PSYCH: Cooperative. Subjective Date of service: 02/24/19 Interval history: Patient seen and examined. Medical records and medication list reviewed. No acute event overnight noted by the RN. Patient denies any chest pain or difficulty breathing. Patient is tolerating diet. Discussed plan of care at bedside with patient. Objective - Constitutional Vitals: Vital Signs - 12hr 02/24/19 02/24/19 02/24/19 03:18 04:50 11:54 Temperature 97.7 F 97.5 F L 98.3 F Pulse Rate 65 67 78 Respiratory 18 20 14 Rate Blood Pressure 100/72 93/66 114/80 O2 Sat by Pulse 100 100 100 Oximetry - Labs CBC & Chem 7: 02/24/19 04:20 02/24/19 04:20 Labs: Abnormal lab results 02/23/19 02/23/19 02/23/19 Range/Units 13:26 15:55 19:08 RBC (3.65-5.03) M/mm3 Hgb (10.1-14.3) gm/dl Hct (30.3-42.9) % RDW (13.2-15.2) % Seg Neuts % (Manual) (40.0-70.0) % Lymphocytes % (Manual) (13.4-35.0) % Eosinophils % (Manual) (0.0-4.3) % Seg Neutrophils # Man (1.8-7.7) K/mm3 Sodium 124 L D (137-145) mmol/L Potassium (3.6-5.0) mmol/L Chloride 86.8 L (98-107) mmol/L Creatinine 1.7 H (0.7-1.2) mg/dL Glucose 871 H* (65-100) mg/dL POC Glucose > 500 H 329 H (70-105) Hemoglobin A1c (4-6) % Calcium 8.2 L (8.4-10.2) mg/dL Phosphorus (2.5-4.5) mg/dL Magnesium 1.50 L (1.7-2.3) mg/dL AST (5-40) units/L ALT (7-56) units/L Alkaline Phosphatase (35-129) units/L Total Protein (6.3-8.2) g/dL Albumin (3.9-5) g/dL 02/23/19 02/23/19 02/23/19 Range/Units 23:35 23:44 Unknown RBC (3.65-5.03) M/mm3 Hgb (10.1-14.3) gm/dl Hct (30.3-42.9) % RDW (13.2-15.2) % Seg Neuts % (Manual) (40.0-70.0) % Lymphocytes % (Manual) (13.4-35.0) % Eosinophils % (Manual) (0.0-4.3) % Seg Neutrophils # Man (1.8-7.7) K/mm3 Sodium 135 L (137-145) mmol/L Potassium 3.5 L (3.6-5.0) mmol/L Chloride (98-107) mmol/L Creatinine 1.4 H (0.7-1.2) mg/dL Glucose 128 H (65-100) mg/dL POC Glucose 65 L (70-105) Hemoglobin A1c > 20.1 H (4-6) % Calcium 7.8 L (8.4-10.2) mg/dL Phosphorus (2.5-4.5) mg/dL Magnesium (1.7-2.3) mg/dL AST (5-40) units/L ALT (7-56) units/L Alkaline Phosphatase (35-129) units/L Total Protein (6.3-8.2) g/dL Albumin (3.9-5) g/dL 02/23/19 02/23/19 02/24/19 Range/Units Unknown Unknown 04:20 RBC 2.98 L (3.65-5.03) M/mm3 Hgb 8.4 L (10.1-14.3) gm/dl Hct 24.8 L (30.3-42.9) % RDW 18.0 H (13.2-15.2) % Seg Neuts % (Manual) 29.0 L (40.0-70.0) % Lymphocytes % (Manual) 62.0 H (13.4-35.0) % Eosinophils % (Manual) 5.0 H (0.0-4.3) % Seg Neutrophils # Man 1.7 L (1.8-7.7) K/mm3 Sodium 132 L D (137-145) mmol/L Potassium (3.6-5.0) mmol/L Chloride 94.6 L (98-107) mmol/L Creatinine 1.6 H (0.7-1.2) mg/dL Glucose 246 H (65-100) mg/dL POC Glucose (70-105) Hemoglobin A1c (4-6) % Calcium (8.4-10.2) mg/dL Phosphorus 2.10 L (2.5-4.5) mg/dL Magnesium 2.40 H (1.7-2.3) mg/dL AST (5-40) units/L ALT (7-56) units/L Alkaline Phosphatase (35-129) units/L Total Protein (6.3-8.2) g/dL Albumin (3.9-5) g/dL 02/24/19 02/24/19 02/24/19 Range/Units 04:20 06:39 08:21 RBC (3.65-5.03) M/mm3 Hgb (10.1-14.3) gm/dl Hct (30.3-42.9) % RDW (13.2-15.2) % Seg Neuts % (Manual) (40.0-70.0) % Lymphocytes % (Manual) (13.4-35.0) % Eosinophils % (Manual) (0.0-4.3) % Seg Neutrophils # Man (1.8-7.7) K/mm3 Sodium 136 L (137-145) mmol/L Potassium (3.6-5.0) mmol/L Chloride (98-107) mmol/L Creatinine 1.4 H (0.7-1.2) mg/dL Glucose 178 H (65-100) mg/dL POC Glucose 215 H 246 H (70-105) Hemoglobin A1c (4-6) % Calcium 8.2 L (8.4-10.2) mg/dL Phosphorus (2.5-4.5) mg/dL Magnesium (1.7-2.3) mg/dL AST 626 H (5-40) units/L ALT 234 H (7-56) units/L Alkaline Phosphatase 175 H (35-129) units/L Total Protein 5.5 L (6.3-8.2) g/dL Albumin 3.2 L (3.9-5) g/dL 02/24/19 Range/Units 11:23 RBC (3.65-5.03) M/mm3 Hgb (10.1-14.3) gm/dl Hct (30.3-42.9) % RDW (13.2-15.2) % Seg Neuts % (Manual) (40.0-70.0) % Lymphocytes % (Manual) (13.4-35.0) % Eosinophils % (Manual) (0.0-4.3) % Seg Neutrophils # Man (1.8-7.7) K/mm3 Sodium (137-145) mmol/L Potassium (3.6-5.0) mmol/L Chloride (98-107) mmol/L Creatinine (0.7-1.2) mg/dL Glucose (65-100) mg/dL POC Glucose 370 H (70-105) Hemoglobin A1c (4-6) % Calcium (8.4-10.2) mg/dL Phosphorus (2.5-4.5) mg/dL Magnesium (1.7-2.3) mg/dL AST (5-40) units/L ALT (7-56) units/L Alkaline Phosphatase (35-129) units/L Total Protein (6.3-8.2) g/dL Albumin (3.9-5) g/dL
[2019-02-24] MEDS: LOVENOX SUB-Q SCH (22:23)
[2019-02-25] MEDS: SYNTHROID PO SCH (06:26)
[2019-02-25] MEDS: HumaLOG SUB-Q SCH ×4 (08:46→22:18)
[2019-02-25] MEDS: CORTEF PO SCH ×2 (10:10→17:41)
[2019-02-25] MEDS: ZOLOFT PO SCH (10:10)
[2019-02-25] MEDS: KEPPRA PO SCH ×2 (10:11→21:40)
[2019-02-25] MEDS: FLORINEF PO SCH (10:12)
[2019-02-25] MEDS: SODIUM CHLORIDE FLUSH SYRINGE 10 ML IV SCH ×2 (10:13→21:43)
[2019-02-25] MEDS ORDERED: LANTUS SUB-Q SCH (10:30)
--- NOTE | 2019-02-25 14:47 | Progress Note ---
Assessment and Plan / Hyperosmolar nonketotic hyperglycemia in type 1 diabetes mellitus, POA Presentation blood glucose was greater than 800, admitted to ICU on insulin drip Now off insulin drip and placed on iv fluid, consistent carb diet, Long-acting insulin and SSI. 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 /Anemia of chronic disease, continue to monitor H&H /-H/O Seizure continue keppra therapy, /Elevated LFT, likely from fatty liver, cont to trend - obtain abdominal US /DVT prophylaxis, continue Lovenox Disposition: likely tomorrow if BG at least <200 Brief History: 28 YO Female patient resident at [facility] multiple admissions in the past , noncompliant with medications , with past medical histo ry of insulin-dependent DM with labile blood sugars, Addisons Disease, chronic hypotension ,Hypothyroidism, and seizure disorder was admitted through ED with history of uncontrolled blood sugar . Initial evaluation was consistent with hyperosmolar nonketotic hyperglycemia syndrome, patient did not have acidosis ketosis. Patient was admitted for further medication management. Of note she was discharged just a couple days ago after being treated for similar presentation. Hospitalist Physical exam: GENERAL: well-developed and well-nourished lying on bed appeared to be in no discomfort. HEENT: Normocephalic. Atraumatic. No conjunctival congestion or icterus. Patient has moist mucous membranes. NECK: Supple. Trachea midline. CHEST/LUNGS: Clear to auscultated bilaterally, breathing nonlabored. No wheezes crackles or rhonchi. HEART/CARDIOVASCULAR: Regular in rate and rhythm. S1 and S2 positive. ABDOMEN: Abdomen is soft, nontender. Patient has normal bowel sounds. SKIN: There is no rash. Warm and dry. NEURO: No focal motor deficit. Follows command. MUSCULOSKELETAL: No joint effusion or tenderness. EXTRIMITY: No edema, no cyanosis or clubbing. PSYCH: Cooperative. Subjective Date of service: 02/25/19 Interval history: Patient seen and examined. Medical records and medication list reviewed. No acute event overnight noted by the RN. Patient denies any chest pain or difficulty breathing. Patient is tolerating diet. Discussed plan of care at bedside with patient. Morning Bg was >300 Objective - Constitutional Vitals: Vital Signs - 12hr 02/25/19 05:50 Temperature 97.3 F L Pulse Rate 66 Respiratory 15 Rate Blood Pressure 88/43 O2 Sat by Pulse 97 Oximetry - Labs CBC & Chem 7: 02/24/19 04:20 02/24/19 04:20 Labs: Abnormal lab results 02/24/19 02/24/19 02/25/19 Range/Units 16:41 21:55 07:48 POC Glucose 180 H 136 H 307 H (70-105) 02/25/19 Range/Units 11:40 POC Glucose 344 H (70-105)
[2019-02-25] MEDS ORDERED: TRIPLE ANTIBIOTIC TP NR (15:30)
[2019-02-25] MEDS ORDERED: FLUSH HEPARIN IV NR (15:30)
[2019-02-25] MEDS ORDERED: LANTUS SUB-Q ONE (15:30)
[2019-02-25] MEDS: LOVENOX SUB-Q SCH (21:43)
[2019-02-25] MEDS ORDERED: ZOFRAN IV PRN (21:45)
[2019-02-25] MEDS ORDERED: NACL 0.9% 1000 ML 1,000 ML IV SCH (23:00)
[2019-02-26] MEDS: SYNTHROID PO SCH (05:35)
--- NOTE | 2019-02-26 08:46 | Ultrasound Report ---
ABDOMINAL ULTRASOUND LIMITED (RIGHT UPPER QUADRANT) HISTORY: Elevated liver function tests. COMPARISON: 02/24/2019 TECHNIQUE: Multiple real-time ultrasonographic grayscale images were obtained of the right upper abdo men. FINDINGS: Pancreas: Partially obscured by poor acoustic windows. Visualized portions without significant abnor mality. Liver: Borderline small with the right lobe measuring 14.4 cm. Mild diffuse increased echogenicity of the liver. No liver mass. Gallbladder: Absent. Common bile duct: 3.5 mm. Right kidney: Poorly imaged Additional findings: None. IMPRESSION: 1. Borderline small liver with mild increased echogenicity suggesting either hepatic steatosis or cir rhosis. 2. Status post cholecystectomy with normal bile ducts. Signer Name: Don Fish MD Signed: 02/26/2019 8:41 AM Workstation Name: [id number]
[2019-02-26] MEDS: D50W (25GM) Syringe IV PRN (08:47)
[2019-02-26] MEDS ORDERED: LANTUS SUB-Q SCH ×2 (10:00)
[2019-02-26 10:58] LABS: Alanine Aminotransferase 150 units/L (7-56); Albumin 3.7 g/dL (3.9-5); BUN/Creatinine Ratio 16; Blood Urea Nitrogen 23 mg/dL (7-17); Calcium 8.4 mg/dL (8.4-10.2); Hemolysis Index 8
[2019-02-26] MEDS: FLORINEF PO SCH (11:00)
[2019-02-26] MEDS: CORTEF PO SCH (11:00)
[2019-02-26] MEDS: ZOLOFT PO SCH (11:00)
[2019-02-26] MEDS: KEPPRA PO SCH (11:00)
[2019-02-26] MEDS: HumaLOG SUB-Q SCH ×3 (11:01→17:10)
[2019-02-26] MEDS: SODIUM CHLORIDE FLUSH SYRINGE 10 ML IV SCH (11:04)
[2019-02-26 11:14] LABS: Bilirubin,Direct < 0.2 mg/dL (0-0.2)
[2019-02-26 13:38] VITALS: BP 96/66
--- NOTE | 2019-02-26 14:02 | Discharge Summary ---
Providers - Providers Date of Admission: 02/23/19 19:37 Date of discharge: 02/26/19 Attending physician: OTF BARNES 02/23/19 19:37 Consult to Dietitian/Nutrition [CONS] Routine Physician Instructions: Reason For Exam: Reason for Consult: Diet education Primary care physician: [employer]ION[facility] MANAGER Hospitalization Condition: Fair Pertinent studies: Abdominal US Hospital course: 28 YO Female patient resident at [facility] multiple admissions in the past , noncompliant with medications , with past medical history of insulin-dependent DM with labile blood sugars, Addisons Disease, chronic hypotension ,Hypothyroidism, and seizure disorder was admitted through ED with history of uncontrolled blood sugar . Initial evaluation was consistent with hyperosmolar nonketotic hyperglycemia syndrome, patient did not have acidosis ketosis. Patient was admitted for further medication management. Of note she was discharged just a couple days ago after being treated for similar presentation. Discharge diagnosis and management: / Hyperosmolar nonketotic hyperglycemia in type 1 diabetes mellitus, POA Presentation blood glucose was greater than 800, admitted to ICU on insulin drip Now off insulin drip and placed on iv fluid, consistent carb diet, Long-acting insulin and SSI. 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 /Anemia of chronic disease, continue to monitor H&H /-H/O Seizure continue keppra therapy, /Elevated LFT, likely from fatty liver, trended down - obtained abdominal US /DVT prophylaxis, continue Lovenox Disposition: Home with Hospitalist Physical exam: GENERAL: well-developed and well-nourished lying on bed appeared to be in no discomfort. HEENT: Normocephalic. Atraumatic. No conjunctival congestion or icterus. Patient has moist mucous membranes. NECK: Supple. Trachea midline. CHEST/LUNGS: Clear to auscultated bilaterally, breathing nonlabored. No wheezes crackles or rhonchi. HEART/CARDIOVASCULAR: Regular in rate and rhythm. S1 and S2 positive. ABDOMEN: Abdomen is soft, nontender. Patient has normal bowel sounds. SKIN: There is no rash. Warm and dry. NEURO: No focal motor deficit. Follows command. MUSCULOSKELETAL: No joint effusion or tenderness. EXTRIMITY: No edema, no cyanosis or clubbing. PSYCH: Cooperative. Disposition: [id number] HOME UNDER HOME [facility] Time spent for discharge: 34 minutes Core Measure Documentation - Palliative Care Palliative Care/ Comfort Measures: Not Applicable - Core Measures Any of the following diagnoses?: none Exam - Constitutional Vitals: Temp Pulse Resp BP Pulse Ox 98.2 F 79 16 96/66 99 02/26/19 11:49 02/26/19 11:49 02/26/19 11:49 02/26/19 11:49 02/26/19 11:49 Plan Activity: advance as tolerated Weight Bearing Status: Weight Bear as Tolerated Diet: diabetic Special Instructions: record blood sugar diary, home health RN Follow up with: PRIMARY CARE,MD [Primary Care Provider] - 3-5 Days Prescriptions: Hydrocortisone [Cortef TAB] 5 mg PO QPM #30 tablet Hydrocortisone [Cortef TAB] 10 mg PO QAM #30 tablet Fludrocortisone [Florinef] 0.1 mg PO QDAY #30 tablet Insulin Glargine [Lantus VIAL] 12 units SUB-Q QAM #10 ml
[2019-02-26] MEDS ORDERED: FLUSH HEPARIN IV ONE (14:56)
== END 2019-02-26 17:35 | disposition home health service (06) | DRG 683 ==
LOC: ED 12:43 → CC1 19:37 → 3A 02-24 00:13
PROVIDERS: ADMIT Internal Medicine; ATTEND Internal Medicine
DX: N17.0 Acute kidney failure with tubular necrosis (principal); E27.1 Primary adrenocortical insufficiency; E13.69 Other specified diabetes mellitus with other specified complication; N18.3 Chronic kidney disease, stage 3 (moderate); E03.9 Hypothyroidism, unspecified; D63.8 Anemia in other chronic diseases classified elsewhere; E10.65 Type 1 diabetes mellitus with hyperglycemia; I95.89 Other hypotension; F32.9 Major depressive disorder, single episode, unspecified; G40.909 Epilepsy, unspecified, not intractable, without status epilepticus; K76.0 Fatty (change of) liver, not elsewhere classified; Z91.14 Patient's other noncompliance with medication regimen; Z79.4 Long term (current) use of insulin; Z90.49 Acquired absence of other specified parts of digestive tract
CPT/HCPCS: 36415; 76705; 80048; 80053; 80076; 82550; 82805; 82962; 83036; 83735; 84100; 84702; 85007; 85025; 85027; 87116; 93005; 93010; G0378; J1642; J1650; J1815; J2405; J2765; J3475; J3480; J7030

== ENCOUNTER 2019-02-28 07:44 | Emergency (ER) | payer MEDICAID ==
[2019-02-28] MEDS ORDERED: D50W (25GM) Vial IV PRN (07:52)
[2019-02-28] MEDS ORDERED: D50W (25GM) Syringe IV ONE (07:52)
--- NOTE | 2019-02-28 07:54 | Emergency Department Report ---
ED General Adult HPI - General Chief complaint: Hypoglycemia Stated complaint: HYPOGLYCEMIA Time Seen by Provider: 02/28/19 07:51 Source: patient, EMS (verbal report received from EMS.ems notes not available at time of chart dictation), RN notes reviewed, old records reviewed Mode of arrival: Stretcher Limitations: No Limitations - History of Present Illness Initial comments: This is a 28-year-old female. I have evaluated this patient multiple times in the past. Her past medical history is complex, including history of labile and fragile diabetes, right-sided thoracic wall port, Dante's disease, hypothyroidism, chronic steroid therapy. Today, the patient is brought to the hospital by emergency medical services for hypoglycemia. As per verbal report from patient's after her initial evaluation, she was not able to get her testing strips filled secondary to issues with insurance preauthorization. She therefore medicated herself empirically with insulin prior to arrival. She was brought to the hospital by EMS for hypoglycemia, and reportedly had a fingerstick of 15 or 16. Initially, in the emergency room, the patient is lethargic and weak. Her port is accessed emergently, using typical sterile technique, the patient given multiple amps of dextrose. The patient then had immediate adventist of normal mental status. The patient has chronic weakness, but no new or different pain. The patient denied urinary symptoms. The patient was fed in the emergency room, and appeared to be improved. She reports that she went to her pharmacy, the pharmacy told her that her testing strips and needles needed prior authorization from her insurance company. However, he reports that when she called her insurance company they stated that no prior authorization was required. -: Sudden Consistency: now resolved Improves with: medication - Related Data Previous Rx's Medication Instructions Recorded Last Taken Type Levothyroxine [Synthroid] 125 mcg PO DAILY #30 tablet 02/17/19 02/23/19 Rx Lispro Insulin [HumaLOG] 0 unit SUB-Q ACHS units 02/17/19 02/23/19 Rx Sertraline [Zoloft] 25 mg PO QDAY #30 tablet 02/17/19 02/23/19 Rx levETIRAcetam [Keppra TAB] 500 mg PO BID #60 tablet 02/17/19 02/23/19 Rx Fludrocortisone [Florinef] 0.1 mg PO QDAY #30 tablet 02/25/19 Unknown Rx Hydrocortisone [Cortef TAB] 5 mg PO QPM #30 tablet 02/25/19 Unknown Rx Hydrocortisone [Cortef TAB] 10 mg PO QAM #30 tablet 02/25/19 Unknown Rx Insulin Glargine [Lantus VIAL] 12 units SUB-Q QAM #10 ml 02/25/19 Unknown Rx Nitrofurantoin [place]/M-Cryst 100 mg PO Q12HR #14 capsule 02/28/19 Unknown Rx [Macrobid CAP] Ondansetron [Zofran Odt] 4 mg PO Q8HR PRN #20 tab.rapdis 02/28/19 Unknown Rx Allergies Allergy/AdvReac Type Severity Reaction Status Date / Time Penicillins Allergy Angioedema Verified 12/31/18 16:01 vortioxetine Allergy Unknown Verified 12/31/18 16:01 [From Trintellix] ziprasidone [From Geodon] Allergy Angioedema Verified 12/31/18 16:01 vancomycin AdvReac Itching Verified 12/31/18 16:01 ED Review of Systems ROS: Stated complaint: HYPOGLYCEMIA Other details as noted in HPI Constitutional: malaise Eyes: denies: eye discharge ENT: denies: epistaxis Respiratory: denies: cough Cardiovascular: denies: chest pain Gastrointestinal: vomiting, other (retching) Genitourinary: denies: dysuria Musculoskeletal: myalgia (chronic) Neurological: weakness ED Past Medical Hx - Past Medical History Hx Congestive Heart Failure: No Hx Diabetes: Yes (Type 1) Hx Renal Disease: Yes Hx Seizures: Yes Hx Asthma: No Hx COPD: No Additional medical history: hypotension, hypothyroidism, Dante's disease, Depression, Celiac - Surgical History Hx Cholecystectomy: Yes Hx Appendectomy: Yes Additional Surgical History: 4. port right chest wall - Social History Smoking Status: Former Smoker - Medications Home Medications: Home Medications Medication Instructions Recorded Confirmed Last Taken Type Levothyroxine [Synthroid] 125 mcg PO DAILY #30 tablet 02/17/19 02/23/19 02/23/19 Rx Lispro Insulin [HumaLOG] 0 unit SUB-Q ACHS units 02/17/19 02/23/19 02/23/19 Rx Sertraline [Zoloft] 25 mg PO QDAY #30 tablet 02/17/19 02/23/19 02/23/19 Rx levETIRAcetam [Keppra TAB] 500 mg PO BID #60 tablet 02/17/19 02/23/19 02/23/19 Rx Fludrocortisone [Florinef] 0.1 mg PO QDAY #30 tablet 02/25/19 Unknown Rx Hydrocortisone [Cortef TAB] 5 mg PO QPM #30 tablet 02/25/19 Unknown Rx Hydrocortisone [Cortef TAB] 10 mg PO QAM #30 tablet 02/25/19 Unknown Rx Insulin Glargine [Lantus VIAL] 12 units SUB-Q QAM #10 ml 02/25/19 Unknown Rx Nitrofurantoin [place]/M-Cryst 100 mg PO Q12HR #14 capsule 02/28/19 Unknown Rx [Macrobid CAP] Ondansetron [Zofran Odt] 4 mg PO Q8HR PRN #20 tab.rapdis 02/28/19 Unknown Rx ED Physical Exam - General Limitations: Altered Mental Status (patient initially altered, then after glucose is corrected, mental status improved to normal baseline.) General appearance: in no apparent distress - Head Head exam: Present: atraumatic, normocephalic - Eye Eye exam: Present: normal appearance, EOMI. Absent: nystagmus - ENT ENT exam: Present: normal exam, normal orophraynx, mucous membranes moist, normal external ear exam - Neck Neck exam: Present: normal inspection, full ROM. Absent: tenderness, meningismus - Respiratory Respiratory exam: Present: normal lung sounds bilaterally. Absent: respiratory distress - Cardiovascular Cardiovascular Exam: Present: regular rate, normal rhythm, normal heart sounds. Absent: bradycardia, tachycardia, irregular rhythm, systolic murmur, diastolic murmur, rubs, gallop - GI/Abdominal GI/Abdominal exam: Present: soft. Absent: distended, tenderness, guarding, rebound, rigid, pulsatile mass - Extremities Exam Extremities exam: Present: normal inspection, full ROM, other (2+ pulses noted in the bilateral upper, lower extremities. Compartments soft. No long bony tenderness. The pelvis is stable.). Absent: pedal edema, joint swelling, calf tenderness - Back Exam Back exam: Present: normal inspection, full ROM. Absent: tenderness, CVA tenderness (R), CVA tenderness (L), paraspinal tenderness, vertebral tenderness - Neurological Exam Neurological exam: Present: alert, oriented X3, other (Extraocular movements intact. Tongue midline. No facial droop. Facial sensation intact to light touch in the V1, V2, V3 distribution bilaterally. 5 and 5 strength in 4 extremities.. Sensation is intact to light touch in 4 extremities.). Absent: motor sensory deficit - Psychiatric Psychiatric exam: Present: normal affect, normal mood - Skin Skin exam: Present: warm, dry, intact, normal color. Absent: rash ED Course Vital Signs 02/28/19 02/28/19 02/28/19 07:44 09:00 09:22 Temperature 98.6 F Pulse Rate 71 65 Respiratory 18 18 18 Rate Blood Pressure 118/71 Blood Pressure 104/66 [Right] O2 Sat by Pulse 100 100 100 Oximetry 02/28/19 12:22 Temperature Pulse Rate 77 Respiratory 18 Rate Blood Pressure Blood Pressure 104/64 [Right] O2 Sat by Pulse 100 Oximetry - Reevaluation(s) Reevaluation #1: 02/28/19 10:57 Differential diagnosis, including but not limited to: Accidental hypoglycemia, pneumonia, urinary tract infection, thyroid dysfunction Assessment and plan: 28-year-old female, well-known to myself, with hypoglycemia, likely secondary to multiple factors. Apparently, the patient is on a prescription delivery service at her assisted, and secondary to administrative issues, has been having trouble getting her prescriptions and supplies delivered. The adult protective caseworker, Silvio Cheyenne Dougherty is on the case, he is going to sort out this administrative quandary. From a medical standpoint, the patient has had appropriate glucose levels for a few hours. She is eating food, and in no acute distress. TSH suggests probably manage hypothyroidism, she'll need to follow up with her primary care doctor or power shear operator for this. Urinalysis is reviewed and appreciated, she can be started on Macrobid. Patient is being observed for another hour or so, while case management finishes up their due diligence. Reevaluation #2: 02/28/19 12:41 No active vomiting. Accu-Chek remains acceptable at this time. Extensive work has been done by the case management team. They assure me and have independently verified that the patient may pick up attendant her glucose monitoring s upplies and strips at [facility] [employer] for free. Patient is advised to go to the nearest [facility] and pick up attendant these supplies. ED Medical Decision Making - Lab Data Result diagrams: 02/28/19 08:02 02/28/19 08:02 Vital Signs 02/28/19 02/28/19 02/28/19 07:44 09:00 09:22 Temperature 98.6 F Pulse Rate 71 65 Respiratory 18 18 18 Rate Blood Pressure 118/71 Blood Pressure 104/66 [Right] O2 Sat by Pulse 100 100 100 Oximetry Lab Results 02/28/19 02/28/19 02/28/19 Range/Units 08:00 08:02 08:02 WBC 6.6 (4.5-11.0) K/mm3 RBC 2.84 L (3.65-5.03) M/mm3 Hgb 8.0 L (10.1-14.3) gm/dl Hct 24.5 L (30.3-42.9) % MCV 86 (79-97) fl MCH 28 (28-32) pg MCHC 33 (30-34) % RDW 18.9 H (13.2-15.2) % Plt Count 224 (140-440) K/mm3 PT 12.0 L (12.2-14.9) Sec. INR 0.91 (0.87-1.13) Sodium (137-145) mmol/L Potassium (3.6-5.0) mmol/L Chloride (98-107) mmol/L Carbon Dioxide (22-30) mmol/L Anion Gap mmol/L BUN (7-17) mg/dL Creatinine (0.7-1.2) mg/dL Estimated GFR ml/min BUN/Creatinine Ratio % Glucose (65-100) mg/dL POC Glucose 324 H (70-105) Lactic Acid (0.7-2.0) mmol/L Calcium (8.4-10.2) mg/dL Magnesium (1.7-2.3) mg/dL Total Creatine Kinase (30-135) units/L TSH (0.270-4.200) mlU/mL Urine Color (Yellow) Urine Turbidity (Clear) Urine pH (5.0-7.0) Ur Specific [place] (1.003-1.030) Urine Protein (Negative) mg/dL Urine Glucose (UA) (Negative) mg/dL Urine Ketones (Negative) mg/dL Urine Blood (Negative) Urine Nitrite (Negative) Urine Bilirubin (Negative) Urine Urobilinogen (<2.0) mg/dL Ur Leukocyte Esterase (Negative) Urine WBC (Auto) (0.0-6.0) /HPF Urine RBC (Auto) (0.0-6.0) /HPF U Epithel Cells (Auto) (0-13.0) /HPF Urine Bacteria (Auto) (Negative) /HPF Hyaline Casts /LPF 02/28/19 02/28/19 02/28/19 Range/Units 08:02 08:02 08:56 WBC (4.5-11.0) K/mm3 RBC (3.65-5.03) M/mm3 Hgb (10.1-14.3) gm/dl Hct (30.3-42.9) % MCV (79-97) fl MCH (28-32) pg MCHC (30-34) % RDW (13.2-15.2) % Plt Count (140-440) K/mm3 PT (12.2-14.9) Sec. INR (0.87-1.13) Sodium 140 (137-145) mmol/L Potassium 3.2 L (3.6-5.0) mmol/L Chloride 103.6 (98-107) mmol/L Carbon Dioxide 27 (22-30) mmol/L Anion Gap 13 mmol/L BUN 22 H (7-17) mg/dL Creatinine 1.4 H (0.7-1.2) mg/dL Estimated GFR 45 ml/min BUN/Creatinine Ratio 16 % Glucose 338 H (65-100) mg/dL POC Glucose (70-105) Lactic Acid 1.50 (0.7-2.0) mmol/L Calcium 7.9 L (8.4-10.2) mg/dL Magnesium 2.00 (1.7-2.3) mg/dL Total Creatine Kinase 19 L (30-135) units/L TSH 11.360 H (0.270-4.200) mlU/mL Urine Color (Yellow) Urine Turbidity (Clear) Urine pH (5.0-7.0) Ur Specific [place] (1.003-1.030) Urine Protein (Negative) mg/dL Urine Glucose (UA) (Negative) mg/dL Urine Ketones (Negative) mg/dL Urine Blood (Negative) Urine Nitrite (Negative) Urine Bilirubin (Negative) Urine Urobilinogen (<2.0) mg/dL Ur Leukocyte Esterase (Negative) Urine WBC (Auto) (0.0-6.0) /HPF Urine RBC (Auto) (0.0-6.0) /HPF U Epithel Cells (Auto) (0-13.0) /HPF Urine Bacteria (Auto) (Negative) /HPF Hyaline Casts /LPF 02/28/19 02/28/19 02/28/19 Range/Units 09:15 10:16 10:27 WBC (4.5-11.0) K/mm3 RBC (3.65-5.03) M/mm3 Hgb (10.1-14.3) gm/dl Hct (30.3-42.9) % MCV (79-97) fl MCH (28-32) pg MCHC (30-34) % RDW (13.2-15.2) % Plt Count (140-440) K/mm3 PT (12.2-14.9) Sec. INR (0.87-1.13) Sodium (137-145) mmol/L Potassium (3.6-5.0) mmol/L Chloride (98-107) mmol/L Carbon Dioxide (22-30) mmol/L Anion Gap mmol/L BUN (7-17) mg/dL Creatinine (0.7-1.2) mg/dL Estimated GFR ml/min BUN/Creatinine Ratio % Glucose (65-100) mg/dL POC Glucose 166 H 106 H (70-105) Lactic Acid (0.7-2.0) mmol/L Calcium (8.4-10.2) mg/dL Magnesium (1.7-2.3) mg/dL Total Creatine Kinase (30-135) units/L TSH (0.270-4.200) mlU/mL Urine Color Yellow (Yellow) Urine Turbidity Clear (Clear) Urine pH 5.0 (5.0-7.0) Ur Specific [place] 1.015 (1.003-1.030) Urine Protein <15 mg/dl (Negative) mg/dL Urine Glucose (UA) 50 (Negative) mg/dL Urine Ketones Neg (Negative) mg/dL Urine Blood Neg (Negative) Urine Nitrite Neg (Negative) Urine Bilirubin Neg (Negative) Urine Urobilinogen < 2.0 (<2.0) mg/dL Ur Leukocyte Esterase Lg (Negative) Urine WBC (Auto) 13.0 H (0.0-6.0) /HPF Urine RBC (Auto) 4.0 (0.0-6.0) /HPF U Epithel Cells (Auto) 1.0 (0-13.0) /HPF Urine Bacteria (Auto) 1+ (Negative) /HPF Hyaline Casts 1 /LPF - EKG Data -: EKG Interpreted by Me EKG shows normal: sinus rhythm Rate: normal - EKG Data 02/28/19 10:57 EKG today shows a sinus rhythm, 61 bpm, normal axis, QTC is prolonged, poor r wave progression, no endorsement of chest pain, the EKG is abnormal, the EKG is not consistent with ST elevation myocardial infarction. - Radiology Data Radiology results: report reviewed, image reviewed X-ray the chest is negative for acute disease Critical care attestation.: If time is entered above; I have spent that time in minutes in the direct care of this critically ill patient, excluding procedure time. ED Disposition Clinical Impression: Hypoglycemia, Hypothyroidism, Pyuria, CKD (chronic kidney disease) Disposition: - TO HOME OR SELFCARE Is pt being admited?: No Does the pt Need Aspirin: No Condition: Stable Additional Instructions: Continue current outpatient medications. Take the Macrobid medication as directed. Take nausea medication as needed/directed. Recommend follow-up with an outpatient power shear operator within the next 3-5 days. Laboratory studies showed chronic renal impairment, and worsening hypothyroidism. Cultures were sent today, the results will be available in the next 3-5 days. Please have a primary care doctor contact the medical records department to obtain culture results. Make certain to eat at least 3-4 meals per day, when taking insulin medication. Return to the emergency room by way with projectile vomiting, change in mental s tatus, confusion, inability to tolerate liquid feeds, new, worsening or different symptoms not present on the initial emergency room evaluation. As case management has discussed with the patient, the patient may pick up attendant her diabetic monitoring supplies for free and at no cost at any local [facility] Therefore, recommend patient take prescriptions to local [facility] to pick up attendant her free diabetic testing supplies. Prescriptions: Nitrofurantoin [place]/M-Cryst [Macrobid CAP] 100 mg PO Q12HR #14 capsule Ondansetron [Zofran Odt] 4 mg PO Q8HR PRN #20 tab.rapdis PRN Reason: Nausea Referrals: ABHISHEK BARRY MD [Primary Care Provider] - 3-5 Days
[2019-02-28] MEDS ORDERED: D5LR 1,000 ML IV SCH (08:00)
[2019-02-28 08:28] LABS: Hematocrit 24.5 % (30.3-42.9); Mean Corpuscular HGB Conc 33 % (30-34); Mean Corpuscular Volume 86 fl (79-97); Platelet Count 224 K/mm3 (140-440); Red Blood Count 2.84 M/mm3 (3.65-5.03); Red Cell Distribution Width 18.9 % (13.2-15.2)
--- NOTE | 2019-02-28 08:36 | XRay Report ---
CHEST 1 VIEW INDICATION / CLINICAL INFORMATION: ams weak hypoglycemia. COMPARISON: 02/15/2019 FINDINGS: SUPPORT DEVICES: Right central venous catheter HEART / MEDIASTINUM: No significant abnormality. LUNGS / PLEURA: No significant pulmonary or pleural abnormality. No pneumothorax. ADDITIONAL FINDINGS: No significant additional findings. IMPRESSION: No acute disease or interval change from 02/15/2019 Signer Name: Adilson Goodwin MD FACR Signed: 02/28/2019 8:32 AM Workstation Name: [id number]
[2019-02-28 08:43] LABS: Calcium 7.9 mg/dL (8.4-10.2); INR 0.91 (0.87-1.13)
[2019-02-28] MEDS ORDERED: K-DUR PO ONE (09:20)
[2019-02-28] MEDS ORDERED: ZOFRAN ONE (09:32)
[2019-02-28] MEDS ORDERED: REGLAN IV ONE (09:54)
[2019-02-28] MEDS ORDERED: ZOFRAN IV ONE (10:01)
[2019-02-28 10:26] LABS: Bacteria,Urine 1+ /HPF (Negative); Bilirubin,Urine NEG (Negative); Blood,Urine NEG (Negative); Color,Urine Yellow (Yellow); Hyaline Casts,Urine 1 /LPF; Protein,Urine <15 mg/dL mg/dL (Negative); Urobilinogen,Urine < 2.0 mg/dL (<2.0)
[2019-02-28] MEDS ORDERED: REGLAN ONE (12:19)
[2019-02-28 12:22] VITALS: BP 104/64
[2019-02-28] MEDS ORDERED: FLUSH HEPARIN IV ONE (12:59)
== END 2019-02-28 13:17 | disposition home or self-care (01) ==
LOC: ED 07:44
DX: E10.649 Type 1 diabetes mellitus with hypoglycemia without coma (principal); E10.22 Type 1 diabetes mellitus with diabetic chronic kidney disease; E03.9 Hypothyroidism, unspecified; N39.0 Urinary tract infection, site not specified; N18.9 Chronic kidney disease, unspecified; E27.1 Primary adrenocortical insufficiency; F32.9 Major depressive disorder, single episode, unspecified; Z90.49 Acquired absence of other specified parts of digestive tract; Z87.891 Personal history of nicotine dependence; Z79.4 Long term (current) use of insulin; Z98.890 Other specified postprocedural states; Z79.899 Other long term (current) drug therapy
CPT/HCPCS: 36415; 71045; 80048; 81001; 82140; 82550; 82962; 83735; 84443; 85027; 85610; 87086; 93005; 93010; 96374; 96375; 99285; J1642; J2405; J2765; J7121; 96361

== ENCOUNTER 2019-03-02 20:40 | Emergency (ER) | payer MEDICAID ==
--- NOTE | 2019-03-02 21:55 | Event Note ---
ED Screening Note Date of service: 03/02/19 Time: 21:53 ED Screening Note: 28 y odiabetic presents with hyperglycemia uncontrolled This initial assessment/diagnostic orders/clinical plan/treatment(s) is/are subject to change based on patients health status, clinical progression and re-assessment by fellow clinical providers in the ED. Further treatment and workup at subsequent clinical providers discretion. Patient/guardian urged not to elope from the ED as their condition may be serious if not clinically assessed and managed. Initial orders include: labs FS: [id number]
[2019-03-03 02:16] VITALS: BP 134/74
[2019-03-03 02:43] LABS: Bilirubin,Urine NEG (Negative); Blood,Urine NEG (Negative); Color,Urine Straw (Yellow); Protein,Urine <15 mg/dL mg/dL (Negative); Urobilinogen,Urine < 2.0 mg/dL (<2.0)
[2019-03-03 03:09] LABS: Hematocrit 23.7 % (30.3-42.9); Hemoglobin 7.7 gm/dl (10.1-14.3); Mean Corpuscular HGB Conc 32 % (30-34); Mean Corpuscular Volume 87 fl (79-97); Platelet Count 258 K/mm3 (140-440); Red Blood Count 2.73 M/mm3 (3.65-5.03); Red Cell Distribution Width 17.9 % (13.2-15.2)
[2019-03-03 03:22] LABS: Albumin 3.4 g/dL (3.9-5); Calcium 8.6 mg/dL (8.4-10.2)
[2019-03-03] MEDS ORDERED: NACL 0.9% 1000 ML 1,000 ML IV ONE ×2 (03:45→03:46)
[2019-03-03] MEDS ORDERED: HumuLIN R IV ONE (03:46)
[2019-03-03 04:26] LABS: Total Cells Counted 100
[2019-03-03 04:27] LABS: Ovalocytes Few; Platelet Estimate Consistent w Auto; RBC Morphology Normal
--- NOTE | 2019-03-03 05:31 | Emergency Department Report ---
ED General Adult HPI - General Chief complaint: Hyperglycemia Stated complaint: HYPERGLYCERMIA Time Seen by Provider: 03/02/19 21:53 Source: patient, EMS Mode of arrival: Ambulatory Limitations: No Limitations - History of Present Illness Initial comments: Lilly is a pleasant 78-year-old female with history of juvenile diabetes, hypothyroidism, depression, Dante's disease, celiac disease, hyportension who presents with "wacky blood sugar" readings. She is is on sliding scale Humalog and long-acting Lantus. She is followed by both net applications developer and PCP at [facility]. She has been compliant with diabetic diet. Her n ormal typical dose of Humalog is 4-10 units with each meal. She denies pain. Denies fever. She denies generalized malaise. -: Gradual, days(s) (3) Consistency: constant Improves with: none Worsens with: none Associated Symptoms: denies other symptoms - Related Data Previous Rx's Medication Instructions Recorded Last Taken Type Levothyroxine [Synthroid] 125 mcg PO DAILY #30 tablet 02/17/19 02/23/19 Rx Lispro Insulin [HumaLOG] 0 unit SUB-Q ACHS units 02/17/19 02/23/19 Rx Sertraline [Zoloft] 25 mg PO QDAY #30 tablet 02/17/19 02/23/19 Rx levETIRAcetam [Keppra TAB] 500 mg PO BID #60 tablet 02/17/19 02/23/19 Rx Fludrocortisone [Florinef] 0.1 mg PO QDAY #30 tablet 02/25/19 Unknown Rx Hydrocortisone [Cortef TAB] 5 mg PO QPM #30 tablet 02/25/19 Unknown Rx Hydrocortisone [Cortef TAB] 10 mg PO QAM #30 tablet 02/25/19 Unknown Rx Insulin Glargine [Lantus VIAL] 12 units SUB-Q QAM #10 ml 02/25/19 Unknown Rx Nitrofurantoin [place]/M-Cryst 100 mg PO Q12HR #14 capsule 02/28/19 Unknown Rx [Macrobid CAP] Ondansetron [Zofran Odt] 4 mg PO Q8HR PRN #20 tab.rapdis 02/28/19 Unknown Rx Allergies Allergy/AdvReac Type Severity Reaction Status Date / Time Penicillins Allergy Angioedema Verified 12/31/18 16:01 vortioxetine Allergy Unknown Verified 12/31/18 16:01 [From Trintellix] ziprasidone [From Geodon] Allergy Angioedema Verified 12/31/18 16:01 vancomycin AdvReac Itching Verified 12/31/18 16:01 ED Review of Systems ROS: Stated complaint: HYPERGLYCERMIA Other details as noted in HPI Comment: All other systems reviewed and negative Constitutional: denies: fever, malaise Respiratory: denies: cough, shortness of breath Cardiovascular: denies: chest pain Gastrointestinal: denies: abdominal pain, nausea, vomiting ED Past Medical Hx - Past Medical History Previous Medical History?: Yes Hx Congestive Heart Failure: No Hx Diabetes: Yes (Type 1) Hx Renal Disease: Yes Hx Seizures: Yes Hx Asthma: No Hx COPD: No Additional medical history: hypotension, hypothyroidism, Dante's disease, Depression, Celiac - Surgical History Past Surgical History?: Yes Hx Cholecystectomy: Yes Hx Appendectomy: Yes Additional Surgical History: 4. port right chest wall - Social History Smoking Status: Never Smoker - Medications Home Medications: Home Medications Medication Instructions Recorded Confirmed Last Taken Type Levothyroxine [Synthroid] 125 mcg PO DAILY #30 tablet 02/17/19 02/23/19 02/23/19 Rx Lispro Insulin [HumaLOG] 0 unit SUB-Q ACHS units 02/17/19 02/23/19 02/23/19 Rx Sertraline [Zoloft] 25 mg PO QDAY #30 tablet 02/17/19 02/23/19 02/23/19 Rx levETIRAcetam [Keppra TAB] 500 mg PO BID #60 tablet 02/17/19 02/23/19 02/23/19 Rx Fludrocortisone [Florinef] 0.1 mg PO QDAY #30 tablet 02/25/19 Unknown Rx Hydrocortisone [Cortef TAB] 5 mg PO QPM #30 tablet 02/25/19 Unknown Rx Hydrocortisone [Cortef TAB] 10 mg PO QAM #30 tablet 02/25/19 Unknown Rx Insulin Glargine [Lantus VIAL] 12 units SUB-Q QAM #10 ml 02/25/19 Unknown Rx Nitrofurantoin [place]/M-Cryst 100 mg PO Q12HR #14 capsule 02/28/19 Unknown Rx [Macrobid CAP] Ondansetron [Zofran Odt] 4 mg PO Q8HR PRN #20 tab.rapdis 02/28/19 Unknown Rx ED Physical Exam - General Limitations: No Limitations General appearance: alert, in no apparent distress - Head Head exam: Present: atraumatic, normocephalic - Eye Eye exam: Present: normal appearance - ENT ENT exam: Present: mucous membranes moist - Neck Neck exam: Present: normal inspection, full ROM - Respiratory Respiratory exam: Present: normal lung sounds bilaterally. Absent: respiratory distress, wheezes, rales, rhonchi - Cardiovascular Cardiovascular Exam: Present: regular rate, normal rhythm, normal heart sounds. Absent: systolic murmur, diastolic murmur, rubs, gallop - GI/Abdominal GI/Abdominal exam: Present: soft, normal bowel sounds. Absent: distended, tenderness, guarding, rebound - Extremities Exam Extremities exam: Present: normal inspection - Back Exam Back exam: Present: normal inspection - Neurological Exam Neurological exam: Present: alert, oriented X3 - Psychiatric Psychiatric exam: Present: normal affect, normal mood - Skin Skin exam: Present: warm, dry, intact, pallor. Absent: rash ED Course Vital Signs 03/02/19 03/03/19 20:43 02:15 Temperature 98.4 F 98.0 F Pulse Rate 100 H 102 H Respiratory 18 12 Rate Blood Pressure 115/97 Blood Pressure 134/74 [Left] O2 Sat by Pulse 98 99 Oximetry ED Medical Decision Making - Lab Data Result diagrams: 03/02/19 21:54 03/02/19 21:54 - Medical Decision Making Lilly presents with asymptomatic hyperglycemia. No evidence of acute diabetic emergenc,infection or illness. She received IV fluid therapy and insulin IV. She is discharged home. Critical care attestation.: If time is entered above; I have spent that time in minutes in the direct care of this critically ill patient, excluding procedure time. ED Disposition Clinical Impression: Insulin dependent diabetes mellitus, Acute hyperglycemia Disposition: - TO HOME OR SELFCARE Is pt being admited?: No Does the pt Need Aspirin: No Condition: Stable Referrals: PRIMARY CARE, [Primary Care Provider] - 3-5 Days
[2019-03-03] MEDS ORDERED: FLUSH HEPARIN IV ONE (06:00)
[2019-03-04] MEDS ORDERED: D5/0.45NS 1,000 ML IV ONE (03:46)
== END 2019-03-03 06:10 | disposition home or self-care (01) ==
LOC: ED 20:40
DX: E10.65 Type 1 diabetes mellitus with hyperglycemia (principal); E03.9 Hypothyroidism, unspecified; F32.9 Major depressive disorder, single episode, unspecified; I95.9 Hypotension, unspecified; Z88.0 Allergy status to penicillin; Z79.4 Long term (current) use of insulin; Z88.1 Allergy status to other antibiotic agents; Z88.8 Allergy status to other drugs, medicaments and biological substances; Z79.899 Other long term (current) drug therapy; Z90.49 Acquired absence of other specified parts of digestive tract
CPT/HCPCS: 36415; 80053; 81001; 82962; 85007; 85025; 87086; 96374; 99284; J1642; J7030; J1815

== ENCOUNTER 2019-03-03 16:53 | Inpatient (IN) | payer MEDICAID ==
--- NOTE | 2019-03-03 17:00 | Event Note ---
ED Screening Note Date of service: 03/03/19 Time: 16:59 ED Screening Note: 28 y o with pmh of DM presents with hyperglyc This initial assessment/diagnostic orders/clinical plan/treatment(s) is/are subject to change based on patients health status, clinical progression and re- assessment by fellow clinical providers in the ED. Further treatment and workup at subsequent clinical providers discretion. Patient/guardian urged not to elope from the ED as their condition may be serious if not clinically assessed and managed. Initial orders include:
[2019-03-03 19:14] LABS: Bilirubin,Urine NEG (Negative); Blood,Urine NEG (Negative); Color,Urine Straw (Yellow); Protein,Urine <15 mg/dL mg/dL (Negative); RBC,Urine < 1.0 /HPF (0.0-6.0); Urobilinogen,Urine < 2.0 mg/dL (<2.0)
[2019-03-03 21:25] LABS: Hematocrit 28.3 % (30.3-42.9); Hemoglobin 8.8 gm/dl (10.1-14.3); Mean Corpuscular HGB Conc 31 % (30-34); Mean Corpuscular Volume 90 fl (79-97); Platelet Count 257 K/mm3 (140-440); Red Blood Count 3.15 M/mm3 (3.65-5.03); Red Cell Distribution Width 17.4 % (13.2-15.2)
--- NOTE | 2019-03-03 21:27 | Emergency Department Report ---
ED General Adult HPI - General Chief complaint: Hyperglycemia Stated complaint: BODY ACHES/HYPERGLYCEMIA Time Seen by Provider: 03/03/19 16:59 Source: patient, RN notes reviewed, old records reviewed Mode of arrival: Ambulatory Limitations: No Limitations - History of Present Illness Initial comments: This is a 28-year-old female. I am very familiar with this patient. Today, the patient presents to the ER with a complaint of typical hyperglycemia. She denies physical pain. Past medical history is complex, including history of brittle diabetes, renal insufficiency, transaminitis, Dante's disease, on chronic steroids. Patient reports that she is considering getting an insulin pump, however, her insurance company will not approve a pump until they have 30 days of blood sugar logs documented. Patient reports that because she keeps coming to the emergency room, she is not able to keep an accurate blood sugar log. She denies physical pain. She denies dietary indiscretions. -: Gradual Consistency: intermittent Improves with: none Worsens with: none - Related Data Previous Rx's Medication Instructions Recorded Last Taken Type Levothyroxine [Synthroid] 125 mcg PO DAILY #30 tablet 02/17/19 02/23/19 Rx Lispro Insulin [HumaLOG] 0 unit SUB-Q ACHS units 02/17/19 02/23/19 Rx Sertraline [Zoloft] 25 mg PO QDAY #30 tablet 02/17/19 02/23/19 Rx levETIRAcetam [Keppra TAB] 500 mg PO BID #60 tablet 02/17/19 02/23/19 Rx Fludrocortisone [Florinef] 0.1 mg PO QDAY #30 tablet 02/25/19 Unknown Rx Hydrocortisone [Cortef TAB] 5 mg PO QPM #30 tablet 02/25/19 Unknown Rx Hydrocortisone [Cortef TAB] 10 mg PO QAM #30 tablet 02/25/19 Unknown Rx Insulin Glargine [Lantus VIAL] 12 units SUB-Q QAM #10 ml 02/25/19 Unknown Rx Nitrofurantoin [place]/M-Cryst 100 mg PO Q12HR #14 capsule 02/28/19 Unknown Rx [Macrobid CAP] Ondansetron [Zofran Odt] 4 mg PO Q8HR PRN #20 tab.rapdis 02/28/19 Unknown Rx Allergies Allergy/AdvReac Type Severity Reaction Status Date / Time Penicillins Allergy Angioedema Verified 12/31/18 16:01 vortioxetine Allergy Unknown Verified 12/31/18 16:01 [From Trintellix] ziprasidone [From Geodon] Allergy Angioedema Verified 12/31/18 16:01 vancomycin AdvReac Itching Verified 12/31/18 16:01 ED Review of Systems ROS: Stated complaint: BODY ACHES/HYPERGLYCEMIA Other details as noted in HPI Constitutional: malaise, weakness. denies: fever Eyes: denies: eye discharge ENT: denies: epistaxis Respiratory: denies: cough Cardiovascular: denies: chest pain Gastrointestinal: denies: nausea Genitourinary: denies: dysuria Musculoskeletal: myalgia Neurological: weakness Psychiatric: anxiety ED Past Medical Hx - Past Medical History Previous Medical History?: Yes Hx Congestive Heart Failure: No Hx Diabetes: Yes (Type 1) Hx Renal Disease: Yes Hx Seizures: Yes Hx Asthma: No Hx COPD: No Additional medical history: hypotension, hypothyroidism, Dante's disease, Depression, Celiac - Surgical History Past Surgical History?: Yes Hx Cholecystectomy: Yes Hx Appendectomy: Yes Additional Surgical History: 4. port right chest wall - Social History Smoking Status: Never Smoker Substance Use Type: None - Medications Home Medications: Home Medications Medication Instructions Recorded Confirmed Last Taken Type Levothyroxine [Synthroid] 125 mcg PO DAILY #30 tablet 02/17/19 02/23/19 02/23/19 Rx Lispro Insulin [HumaLOG] 0 unit SUB-Q ACHS units 02/17/19 02/23/19 02/23/19 Rx Sertraline [Zoloft] 25 mg PO QDAY #30 tablet 02/17/19 02/23/19 02/23/19 Rx levETIRAcetam [Keppra TAB] 500 mg PO BID #60 tablet 02/17/19 02/23/19 02/23/19 Rx Fludrocortisone [Florinef] 0.1 mg PO QDAY #30 tablet 02/25/19 Unknown Rx Hydrocortisone [Cortef TAB] 5 mg PO QPM #30 tablet 02/25/19 Unknown Rx Hydrocortisone [Cortef TAB] 10 mg PO QAM #30 tablet 02/25/19 Unknown Rx Insulin Glargine [Lantus VIAL] 12 units SUB-Q QAM #10 ml 02/25/19 Unknown Rx Nitrofurantoin [place]/M-Cryst 100 mg PO Q12HR #14 capsule 02/28/19 Unknown Rx [Macrobid CAP] Ondansetron [Zofran Odt] 4 mg PO Q8HR PRN #20 tab.rapdis 02/28/19 Unknown Rx ED Physical Exam - General Limitations: No Limitations General appearance: alert, in no apparent distress - Head Head exam: Present: atraumatic, normocephalic - Eye Eye exam: Present: normal appearance, EOMI. Absent: nystagmus - ENT ENT exam: Present: normal exam, normal orophraynx, mucous membranes moist, normal external ear exam - Neck Neck exam: Present: normal inspection, full ROM. Absent: tenderness, meningismus - Respiratory Respiratory exam: Present: normal lung sounds bilaterally. Absent: respiratory distress - Cardiovascular Cardiovascular Exam: Present: normal rhythm, bradycardia, normal heart sounds. Absent: systolic murmur, diastolic murmur, rubs, gallop - GI/Abdominal GI/Abdominal exam: Present: soft. Absent: distended, tenderness, guarding, rebound, rigid, pulsatile mass - Extremities Exam Extremities exam: Present: normal inspection, full ROM, other (2+ pulses noted in the bilateral upper, lower extremities. There is no long bone tenderness. Musculoskeletal compartments are soft. The pelvis is stable.). Absent: pedal edema, calf tenderness - Back Exam Back exam: Present: normal inspection. Absent: full ROM, tenderness, CVA tenderness (R), CVA tenderness (L), paraspinal tenderness, vertebral tenderness - Neurological Exam Neurological exam: Present: alert, oriented X3, other (there is no facial droop. The tongue is midline. Extraocular movements are intact bilaterally. Patient speaking in full complete sentences. Shoulder shrug is intact bilaterally. Hearing is grossly intact bilaterally. Visual acuity intact to finger counting and color perception at a close distance. 5/5 strength 4 extremities. Sensation intact to light touch in 4 extremities.). Absent: motor sensory deficit - Psychiatric Psychiatric exam: Present: flat affect - Skin Skin exam: Present: warm, dry, intact, normal color. Absent: rash ED Course Vital Signs 03/03/19 16:59 Temperature 99.0 F Pulse Rate 51 L Respiratory 16 Rate Blood Pressure 101/71 O2 Sat by Pulse 97 Oximetry - Reevaluation(s) Reevaluation #1: 03/03/19 23:07 Dr. Gill has accepted the patient to the medical service. She requested initiation of insulin drip. ED Medical Decision Making - Lab Data Result diagrams: 03/03/19 21:10 03/03/19 21:10 Vital Signs 03/03/19 16:59 Temperature 99.0 F Pulse Rate 51 L Respiratory 16 Rate Blood Pressure 101/71 O2 Sat by Pulse 97 Oximetry Lab Results 03/03/19 03/03/19 03/03/19 Range/Units 18:40 19:56 21:10 WBC 5.6 (4.5-11.0) K/mm3 RBC 3.15 L (3.65-5.03) M/mm3 Hgb 8.8 L (10.1-14.3) gm/dl Hct 28.3 L (30.3-42.9) % MCV 90 (79-97) fl MCH 28 (28-32) pg MCHC 31 (30-34) % RDW 17.4 H (13.2-15.2) % Plt Count 257 (140-440) K/mm3 Lymph % (Auto) [employer] Seg Neutrophils % [employer] Sodium (137-145) mmol/L Potassium (3.6-5.0) mmol/L Chloride (98-107) mmol/L Carbon Dioxide (22-30) mmol/L Anion Gap mmol/L BUN (7-17) mg/dL Creatinine (0.7-1.2) mg/dL Estimated GFR ml/min BUN/Creatinine Ratio % Glucose (65-100) mg/dL POC Glucose > 500 H (70-105) Calcium (8.4-10.2) mg/dL Magnesium (1.7-2.3) mg/dL Total Bilirubin (0.1-1.2) mg/dL AST (5-40) units/L ALT (7-56) units/L Alkaline Phosphatase (35-129) units/L Total Creatine Kinase (30-135) units/L Total Protein (6.3-8.2) g/dL Albumin (3.9-5) g/dL Albumin/Globulin Ratio % Urine Color Straw (Yellow) Urine Turbidity Clear (Clear) Urine pH 6.0 (5.0-7.0) Ur Specific [place] 1.013 (1.003-1.030) Urine Protein <15 mg/dl (Negative) mg/dL Urine Glucose (UA) >=500 (Negative) mg/dL Urine Ketones Neg (Negative) mg/dL Urine Blood Neg (Negative) Urine Nitrite Neg (Negative) Urine Bilirubin Neg (Negative) Urine Urobilinogen < 2.0 (<2.0) mg/dL Ur Leukocyte Esterase Sm (Negative) Urine WBC (Auto) 3.0 (0.0-6.0) /HPF Urine RBC (Auto) < 1.0 (0.0-6.0) /HPF U Epithel Cells (Auto) 1.0 (0-13.0) /HPF 03/03/19 03/03/19 Range/Units 21:10 21:42 WBC (4.5-11.0) K/mm3 RBC (3.65-5.03) M/mm3 Hgb (10.1-14.3) gm/dl Hct (30.3-42.9) % MCV (79-97) fl MCH (28-32) pg MCHC (30-34) % RDW (13.2-15.2) % Plt Count (140-440) K/mm3 Lymph % (Auto) Seg Neutrophils % Sodium 126 L (137-145) mmol/L Potassium 6.4 H* D (3.6-5.0) mmol/L Chloride 92.8 L (98-107) mmol/L Carbon Dioxide 19 L D (22-30) mmol/L Anion Gap 21 mmol/L BUN 26 H (7-17) mg/dL Creatinine 1.5 H (0.7-1.2) mg/dL Estimated GFR 41 ml/min BUN/Creatinine Ratio 17 % Glucose 773 H* (65-100) mg/dL POC Glucose (70-105) Calcium 8.4 (8.4-10.2) mg/dL Magnesium 1.80 (1.7-2.3) mg/dL Total Bilirubin 0.30 (0.1-1.2) mg/dL AST 188 H (5-40) units/L ALT 90 H (7-56) units/L Alkaline Phosphatase 158 H (35-129) units/L Total Creatine Kinase 47 (30-135) units/L Total Protein 6.0 L (6.3-8.2) g/dL Albumin 3.9 (3.9-5) g/dL Albumin/Globulin Ratio 1.9 % Urine Color (Yellow) Urine Turbidity (Clear) Urine pH (5.0-7.0) Ur Specific [place] (1.003-1.030) Urine Protein (Negative) mg/dL Urine Glucose (UA) (Negative) mg/dL Urine Ketones (Negative) mg/dL Urine Blood (Negative) Urine Nitrite (Negative) Urine Bilirubin (Negative) Urine Urobilinogen (<2.0) mg/dL Ur Leukocyte Esterase (Negative) Urine WBC (Auto) (0.0-6.0) /HPF Urine RBC (Auto) (0.0-6.0) /HPF U Epithel Cells (Auto) (0-13.0) /HPF - Medical Decision Making Differential diagnosis, including not limited to: Diabetic hyperglycemia, electrolyte derangement, pseudohyponatremia Assessment and plan: 28-year-old female, brittle diabetic, chronic steroid therapy, now presenting with complaints of painless hyperglycemia, thought to have glucose of greater than 700, potassium 6.4, pseudohyponatremia, chronic transaminitis, chronic renal insufficiency. The patient is afebrile with reassuring vital signs and appears quite comfortable. We will initiate IV fluids, water IV insulin, placed on a monitor tech, and admitted to the medical service for further evaluation and management. Patient may benefit from a case management consult for possible expedited placement of insulin pump, we'll defer to the inpatient team to further manage this. Critical Care Time: Yes Critical care time in (mins) excluding proc time.: 35 Critical care attestation.: If time is entered above; I have spent that time in minutes in the direct care of this critically ill patient, excluding procedure time. ED Disposition Clinical Impression: Hyperglycemia, [place]'s disease, Elevated LFTs, Hyperkalemia, CKD (chronic kidney disease) Disposition: OP ADMIT IP TO THIS HOSP Is pt being admited?: Yes Condition: Serious Referrals: PRIMARY CARE, [Primary Care Provider] - 3-5 Days
[2019-03-03 22:01] LABS: Albumin 3.9 g/dL (3.9-5); Calcium 8.4 mg/dL (8.4-10.2)
[2019-03-03] MEDS ORDERED: HumuLIN R IV ONE (22:28)
[2019-03-03] MEDS ORDERED: NACL 0.9% 1000 ML 1,000 ML IV ONE (22:28)
[2019-03-03 22:41] LABS: RBC Morphology Normal; Total Cells Counted 100
[2019-03-03] MEDS ORDERED: D50W (25GM) Syringe IV PRN (23:06)
[2019-03-03] MEDS ORDERED: SODIUM CHLORIDE FLUSH SYRINGE 10 ML IV PRN ×2 (23:32→23:45)
[2019-03-03] MEDS ORDERED: ZOFRAN IV PRN (23:32)
[2019-03-03] MEDS ORDERED: TYLENOL PO PRN (23:32)
--- NOTE | 2019-03-03 23:35 | History and Physical Report ---
History of Present Illness Date of examination: 03/03/19 History of present illness: 28-year-old man with a history of seizure, Dante's disease, depression, hypothyroidism, diabetes, chronic kidney disease, celiac disease comes emergency room because her blood sugar has been reading high at home. She returned to the emergency room for further evaluation, also complaining of generalized body ache, drinking a lot, states she is compliant with medications eview Of Systems: Constitutional: no weight loss, fever, chills Ears, eyes, nose, mouth and throat: no nasal congestion, no nasal discharge, no sinus pressure, blurry vision, diplopia Neck: No neck pain or rigidity. Cardiovascular: No palpitations, chest pain Respiratory: No shortness of breath, cough Gastrointestinal: No hematochezia, abdominal pain Genitourinary : no dysuria, frequency , hematuria Musculoskeletal: no muscle ache , joint pain Integumentary: no rash, no pruritis Neurological: no parathesias, focal weakness Endocrine: no cold or heat intolerance, no polyuria or polydipsia Hematologic/Lymphatic: no easy bruising, no easy bleeding, no gland swelling Allergic/Immunologic: no urticaria, no angioedema. PAST MEDICAL HISTORY:seizure, [place]'s disease, depression, hypothyroidism, diabetes, chronic kidney disease, celiac disease PAST SURGICAL HISTORY: Appendicectomy, cholecystectomy, , port placement FAMILY HISTORY:hypertension, diabetes SOCIAL HISTORY: Denies tobacco, drugs, alcohol Medications and Allergies Allergies Allergy/AdvReac Type Severity Reaction Status Date / Time Penicillins Allergy Angioedema Verified 12/31/18 16:01 vortioxetine Allergy Unknown Verified 12/31/18 16:01 [From Trintellix] ziprasidone [From Geodon] Allergy Angioedema Verified 12/31/18 16:01 vancomycin AdvReac Itching Verified 12/31/18 16:01 Home Medications Medication Instructions Recorded Confirmed Last Taken Type Levothyroxine [Synthroid] 125 mcg PO DAILY #30 tablet 02/17/19 03/03/19 02/23/19 Rx Lispro Insulin [HumaLOG] 0 unit SUB-Q ACHS units 02/17/19 03/03/19 02/23/19 Rx Sertraline [Zoloft] 25 mg PO QDAY #30 tablet 02/17/19 03/03/19 02/23/19 Rx levETIRAcetam [Keppra TAB] 500 mg PO BID #60 tablet 02/17/19 03/03/19 02/23/19 Rx Fludrocortisone [Florinef] 0.1 mg PO QDAY #30 tablet 02/25/19 03/03/19 Unknown Rx Hydrocortisone [Cortef TAB] 5 mg PO QPM #30 tablet 02/25/19 Unknown Rx Hydrocortisone [Cortef TAB] 10 mg PO QAM #30 tablet 02/25/19 03/03/19 Unknown Rx Insulin Glargine [Lantus VIAL] 12 units SUB-Q QAM #10 ml 02/25/19 03/03/19 Unknown Rx Nitrofurantoin [place]/M-Cryst 100 mg PO Q12HR #14 capsule 02/28/19 03/03/19 Unknown Rx [Macrobid CAP] Ondansetron [Zofran Odt] 4 mg PO Q8HR PRN #20 tab.rapdis 02/28/19 03/03/19 Unknown Rx Active Meds: Active Medications Acetaminophen (Tylenol) 650 mg PO Q4H PRN PRN Reason: Pain MILD(1-3)/Fever >100.5/STEWARD Dextrose (D50w (25gm) Syringe) 0 ml IV PRN PRN PRN Reason: Hypoglycemia Enoxaparin Sodium (Lovenox) 30 mg SUB-Q QDAY MARINO Insulin Human Regular 100 (units/ Sodium Chloride) 100 mls @ 1 mls/hr IV TITR MARINO; Protocol Sodium Chloride (Nacl 0.9% 1000 Ml) 1,000 mls @ 150 mls/hr IV DIRECT MARINO Dextrose/Sodium Chloride (D5/0.45ns) 1,000 mls @ 150 mls/hr IV DIRECT MARINO Ondansetron HCl (Zofran) 4 mg IV Q4H PRN PRN Reason: Nausea And Vomiting Sodium Chloride (Sodium Chloride Flush Syringe 10 Ml) 10 ml IV PRN PRN PRN Reason: LINE FLUSH Sodium Chloride (Sodium Chloride Flush Syringe 10 Ml) 10 ml IV BID MARINO Sodium Chloride (Sodium Chloride Flush Syringe 10 Ml) 10 ml IV PRN PRN PRN Reason: LINE FLUSH Exam - Physical Exam Narrative exam: General Apperance: The patient sitting in bed no acute distress HEENT: Normocephalic, atraumatic. Pupils equally round and reactive to light, extraocular movement intact, and no sclericterus or JVD or thyromegaly or nodule. Neck supple, no carotid bruit, mucous membranes dry, no exudate or erythema Heart: S1-S2, regular is rhythm Lungs: Clear to auscultation bilaterally, breathing comfortable Abdomen: Positive bowel sounds, soft, nontender, nondistended, no organomegaly Extremities: No edema cyanosis clubbing Skin: no rash, nodule, warm and dry Neuro:CN 2 -12 intact, motor/sensory intact, speech is fluent - Constitutional Vitals: Temp Pulse Resp BP Pulse Ox 99.0 F 51 L 16 101/71 97 03/03/19 16:59 03/03/19 16:59 03/03/19 16:59 03/03/19 16:59 03/03/19 16:59 Results - Labs CBC & Chem 7: 03/03/19 21:10 03/04/19 01:35 Labs: Abnormal lab results 03/03/19 03/03/19 03/03/19 Range/Units 19:56 21:10 21:10 RBC 3.15 L (3.65-5.03) M/mm3 Hgb 8.8 L (10.1-14.3) gm/dl Hct 28.3 L (30.3-42.9) % RDW 17.4 H (13.2-15.2) % Seg Neuts % (Manual) 31.0 L (40.0-70.0) % Lymphocytes % (Manual) 58.0 H (13.4-35.0) % Seg Neutrophils # Man 1.7 L (1.8-7.7) K/mm3 Sodium 126 L (137-145) mmol/L Potassium 6.4 H* D (3.6-5.0) mmol/L Chloride 92.8 L (98-107) mmol/L Carbon Dioxide 19 L D (22-30) mmol/L BUN 26 H (7-17) mg/dL Creatinine 1.5 H (0.7-1.2) mg/dL Glucose 773 H* (65-100) mg/dL POC Glucose > 500 H (70-105) AST 188 H (5-40) units/L ALT 90 H (7-56) units/L Alkaline Phosphatase 158 H (35-129) units/L Total Protein 6.0 L (6.3-8.2) g/dL Assessment and Plan assessment DKA Seizure [place]'s disease Depression Hypothyroidism Chronic kidney disease Celiac disease Plan Admit to the medicine Start DKA protocol with IV fluids, insulin drip Monitor serial electrolytes Consult critical care, DVT prophylaxis
[2019-03-03] MEDS ORDERED: D5W/0.45% NACL/KCL 20 MEQ 20 MEQ/1,000 ML BAG IV SCH (23:45)
[2019-03-03] MEDS ORDERED: NACL 0.9% 1000 ML 1,000 ML IV SCH (23:45)
[2019-03-03] MEDS ORDERED: HumuLIN R 100 UNITS in NACL 0.9% 99 ML IV SCH (23:45)
[2019-03-04 02:28] LABS: Calcium 8.1 mg/dL (8.4-10.2)
[2019-03-04] MEDS: D5/0.45NS 1,000 ML IV SCH ×2 (03:45→22:06)
[2019-03-04 04:24] LABS: Calcium 8.2 mg/dL (8.4-10.2)
[2019-03-04] MEDS ORDERED: D50W (25GM) Syringe IV ONE (06:24)
[2019-03-04] MEDS ORDERED: D50W (25GM) Syringe IV PRN (08:25)
[2019-03-04] MEDS ORDERED: ZOFRAN ODT PO PRN (09:00)
[2019-03-04] MEDS: MACROBID PO SCH ×2 (11:06→22:07)
[2019-03-04] MEDS: CORTEF PO SCH ×2 (11:06→17:42)
[2019-03-04] MEDS: KEPPRA PO SCH ×2 (11:17→22:07)
[2019-03-04] MEDS: SYNTHROID PO SCH (11:17)
[2019-03-04] MEDS: HumaLOG SUB-Q SCH ×3 (11:25→23:10)
[2019-03-04] MEDS ORDERED: PNEUMOVAX 23 IM ONE (12:00)
--- NOTE | 2019-03-04 12:05 | Progress Note ---
Assessment and Plan Assessment and plan: 28 YO Female patient resident at [facility] multiple admissions in the past , noncompliant with medications , with past medical history of insulin-dependent DM with labile blood sugars, Addisons Disease, chronic hypotension ,Hypothyroidism, and seizure disorder was admitted through ED with history of uncontrolled blood sugar . Initial evaluation was consistent with hyperosmolar nonketotic hyperglycemia syndrome, patient did not have acidosis ketosis. Patient was admitted for further medication management. Of note she was discharged just a couple days ago after being treated for similar presentation. / Hyperosmolar nonketotic hyperglycemia in type 1 diabetes mellitus, POA The patient has had recurrent admission in the hospital for the same reason this has gone way back to August 2018 Patient again Presentation blood glucose was greater than 800, admitted to ICU on insulin drip Downgrade Now off insulin drip and placed on iv fluid, consistent carb diet, Long-acting insulin and SSI. 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 /Anemia of chronic disease, continue to monitor H&H /-H/O Seizure continue keppra therapy, /Elevated LFT, likely from fatty liver, /DVT prophylaxis, continue Lovenox Patient will benefit from insulin pump. she follows with Software Product Specialist outpatient Will monitor and if stable, patient can be discharge in am History Interval history: Seen and examined doing well, she is frustrated at the multiple admissions in the hospital due to her medical condition. She follows me that she is walking with her insurance company to see if she could be approved for an insulin pump which is what her automobile racer has recommended Hospitalist Physical - Physical exam Narrative exam: VITAL SIGNS: Reviewed. GENERAL: The patient appears normally developed, Vital signs as documented. HEAD: No signs of head trauma. EYES: Pupils are equal. Extraocular motions intact. EARS: Hearing grossly intact. MOUTH: Oropharynx is normal. NECK: No adenopathy, no JVD. CHEST: Chest with clear breath sounds bilaterally. No wheezes, rales, or rhonchi. CARDIAC: Regular rate and rhythm. S1 and S2, without murmurs, gallops, or rubs. VASCULAR: No Edema. Peripheral pulses normal and equal in all extremities. ABDOMEN: Soft, non tender and non distended. No rebound or guarding, and no masses palpated. Bowel Sounds normal. MUSCULOSKELETAL: Good range of motion of all major joints. Extremities without clubbing, cyanosis or edema. NEUROLOGIC EXAM: Alert and oriented x 3 No focal sensory or strength deficits . Speech normal. Follows commands. PSYCHIATRIC: Mood normal. SKIN: detial exam as documented in skin assessment - Constitutional Vitals: Temp Pulse Resp BP Pulse Ox 98.2 F 79 14 110/74 100 03/04/19 10:16 03/04/19 10:16 03/04/19 10:16 03/04/19 10:16 03/04/19 10:16 Results - Labs CBC & Chem 7: 03/03/19 21:10 03/04/19 06:16 Labs: Laboratory Last Values WBC 5.6 K/mm3 (4.5-11.0) 03/03/19 21:10 RBC 3.15 M/mm3 (3.65-5.03) L 03/03/19 21:10 Hgb 8.8 gm/dl (10.1-14.3) L 03/03/19 21:10 Hct 28.3 % (30.3-42.9) L 03/03/19 21:10 MCV 90 fl (79-97) 03/03/19 21:10 MCH 28 pg (28-32) 03/03/19 21:10 MCHC 31 % (30-34) 03/03/19 21:10 RDW 17.4 % (13.2-15.2) H 03/03/19 21:10 Plt Count 257 K/mm3 (140-440) 03/03/19 21:10 Lymph % (Auto) Machine Setter 03/03/19 21:10 Add Manual Diff Complete 03/03/19 21:10 Total Counted 100 03/03/19 21:10 Seg Neutrophils % Machine Setter 03/03/19 21:10 Seg Neuts % (Manual) 31.0 % (40.0-70.0) L 03/03/19 21:10 0 % 03/03/19 21:10 58.0 % (13.4-35.0) H 03/03/19 21:10 Reactive Lymphs % (Man) 0 % 03/03/19 21:10 6.0 % (0.0-7.3) 03/03/19 21:10 4.0 % (0.0-4.3) 03/03/19 21:10 1.0 % (0.0-1.8) 03/03/19 21:10 0 % 03/03/19 21:10 0 % 03/03/19 21:10 0 % 03/03/19 21:10 0 % 03/03/19 21:10 Nucleated RBC % Not Reportable 03/03/19 21:10 Seg Neutrophils # Man 1.7 K/mm3 (1.8-7.7) L 03/03/19 21:10 Band Neutrophils # 0.0 K/mm3 03/03/19 21:10 3.2 K/mm3 (1.2-5.4) 03/03/19 21:10 Abs React Lymphs (Man) 0.0 K/mm3 03/03/19 21:10 0.3 K/mm3 (0.0-0.8) 03/03/19 21:10 0.2 K/mm3 (0.0-0.4) 03/03/19 21:10 0.1 K/mm3 (0.0-0.1) 03/03/19 21:10 0.0 K/mm3 03/03/19 21:10 0.0 K/mm3 03/03/19 21:10 0.0 K/mm3 03/03/19 21:10 Blast Cells # 0.0 K/mm3 03/03/19 21:10 WBC Morphology Not Reportable 03/03/19 21:10 Hypersegmented Neuts Not Reportable 03/03/19 21:10 Hyposegmented Neuts Not Reportable 03/03/19 21:10 Hypogranular Neuts Not Reportable 03/03/19 21:10 Not Reportable 03/03/19 21:10 Not Reportable 03/03/19 21:10 Not Reportable 03/03/19 21:10 Not Reportable 03/03/19 21:10 Not Reportable 03/03/19 21:10 Not Reportable 03/03/19 21:10 Not Reportable 03/03/19 21:10 Not Reportable 03/03/19 21:10 Plt Clumps, EDTA Not Reportable 03/03/19 21:10 Not Reportable 03/03/19 21:10 Not Reportable 03/03/19 21:10 Not Reportable 03/03/19 21:10 Plt Morphology Comment Not Reportable 03/03/19 21:10 RBC Morphology Normal 03/03/19 21:10 Dimorphic RBCs Not Reportable 03/03/19 21:10 Not Reportable 03/03/19 21:10 Not Reportable 03/03/19 21:10 Not Reportable 03/03/19 21:10 Not Reportable 03/03/19 21:10 Not Reportable 03/03/19 21:10 Not Reportable 03/03/19 21:10 Not Reportable 03/03/19 21:10 Not Reportable 03/03/19 21:10 Not Reportable 03/03/19 21:10 Not Reportable 03/03/19 21:10 Not Reportable 03/03/19 21:10 Not Reportable 03/03/19 21:10 Not Reportable 03/03/19 21:10 Not Reportable 03/03/19 21:10 Not Reportable 03/03/19 21:10 Not Reportable 03/03/19 21:10 Not Reportable 03/03/19 21:10 Not Reportable 03/03/19 21:10 Not Reportable 03/03/19 21:10 Acanthocytes (Spur) Not Reportable 03/03/19 21:10 Rouleaux Not Reportable 03/03/19 21:10 Not Reportable 03/03/19 21:10 Not Reportable 03/03/19 21:10 Not Reportable 03/03/19 21:10 Not Reportable 03/03/19 21:10 Hem Pathologist Commnt No 03/03/19 21:10 Sodium 135 mmol/L (137-145) L 03/04/19 06:16 Potassium 3.6 mmol/L (3.6-5.0) 03/04/19 06:16 Chloride 102.4 mmol/L (98-107) 03/04/19 06:16 Carbon Dioxide 23 mmol/L (22-30) 03/04/19 06:16 13 mmol/L 03/04/19 06:16 BUN 23 mg/dL (7-17) H 03/04/19 06:16 1.2 mg/dL (0.7-1.2) 03/04/19 06:16 Estimated GFR 53 ml/min 03/04/19 06:16 19 % 03/04/19 06:16 Glucose 37 mg/dL (65-100) L* 03/04/19 06:16 POC Glucose 134 (70-105) H 03/04/19 08:16 Calcium 8.0 mg/dL (8.4-10.2) L 03/04/19 06:16 Magnesium 1.80 mg/dL (1.7-2.3) 03/03/19 21:42 0.30 mg/dL (0.1-1.2) 03/03/19 21:10 AST 188 units/L (5-40) H 03/03/19 21:10 ALT 90 units/L (7-56) H 03/03/19 21:10 158 units/L (35-129) H 03/03/19 21:10 47 units/L (30-135) 03/03/19 21:42 6.0 g/dL (6.3-8.2) L 03/03/19 21:10 3.9 g/dL (3.9-5) 03/03/19 21:10 1.9 % 03/03/19 21:10 Straw (Yellow) 03/03/19 18:40 Clear (Clear) 03/03/19 18:40 6.0 (5.0-7.0) 03/03/19 18:40 Ur Specific [place] 1.013 (1.003-1.030) 03/03/19 18:40 <15 mg/dl mg/dL (Negative) 03/03/19 18:40 >=500 mg/dL (Negative) 03/03/19 18:40 Neg mg/dL (Negative) 03/03/19 18:40 Neg (Negative) 03/03/19 18:40 Neg (Negative) 03/03/19 18:40 Neg (Negative) 03/03/19 18:40 < 2.0 mg/dL (<2.0) 03/03/19 18:40 Ur Leukocyte Esterase Sm (Negative) 03/03/19 18:40 3.0 /HPF (0.0-6.0) 03/03/19 18:40 < 1.0 /HPF (0.0-6.0) 03/03/19 18:40 U Epithel Cells (Auto) 1.0 /HPF (0-13.0) 03/03/19 18:40 Active Medications - Current Medications Current Medications: Generic Name Dose Route Start Last Admin Trade Name Freq PRN Reason Stop Dose Admin Acetaminophen 650 mg 03/03/19 23:32 Tylenol PO Q4H PRN Pain MILD(1-3)/Fever >100.5/STEWARD Dextrose 0 ml 03/03/19 23:06 03/04/19 06:34 D50w (25gm) Syringe IV 50 ml PRN PRN Administration Hypoglycemia Dextrose 50 ml 03/04/19 08:25 D50w (25gm) Syringe IV PRN PRN Hypoglycemia Enoxaparin Sodium 30 mg 03/04/19 10:00 Lovenox SUB-Q QDAY MARINO Fludrocortisone Acetate 0.1 mg 03/04/19 10:00 Florinef PO QDAY MARINO Hydrocortisone Acetate 10 mg 03/04/19 10:00 Cortef PO QAM MARINO Hydrocortisone Acetate 5 mg 03/04/19 18:00 Cortef PO QPM MARINO Sodium Chloride 1,000 mls @ 150 mls/hr 03/03/19 23:45 Nacl 0.9% 1000 Ml IV DIRECT MARINO Dextrose/Sodium Chloride 1,000 mls @ 150 mls/hr 03/03/19 23:45 03/04/19 03:45 D5/0.45ns IV 150 mls/hr DIRECT MARINO Administration Insulin Glargine 12 units 03/04/19 22:00 Lantus SUB-Q QHS MARINO Insulin Human Lispro 0 unit 03/04/19 11:30 Humalog SUB-Q ACHS [facility] Protocol Levetiracetam 500 mg 03/04/19 10:00 Keppra PO BID MARINO Levothyroxine Sodium 125 mcg 03/04/19 10:00 Synthroid PO DAILY [facility] Nitrofurantoin Macrocrystals 100 mg 03/04/19 10:00 Macrobid PO Q12HR MARINO Ondansetron HCl 4 mg 03/03/19 23:32 Zofran IV Q4H PRN Nausea And Vomiting Ondansetron HCl 4 mg 03/04/19 09:00 Zofran Odt PO Q8HR PRN Nausea Pneumococcal Polyvalent Vaccine 0.5 ml 03/04/19 12:00 Pneumovax 23 IM 03/04/19 12:01 .ONCE ONE Sertraline HCl 25 mg 03/04/19 10:00 Zoloft PO QDAY MARINO Sodium Chloride 10 ml 03/04/19 10:00 Sodium Chloride Flush Syringe 10 Ml IV BID MARINO Sodium Chloride 10 ml 03/03/19 23:32 Sodium Chloride Flush Syringe 10 Ml IV PRN PRN LINE FLUSH
[2019-03-04] MEDS: ZOLOFT PO SCH (13:05)
[2019-03-04] MEDS: FLORINEF PO SCH (13:05)
[2019-03-04] MEDS: LOVENOX SUB-Q SCH (13:07)
--- NOTE | 2019-03-04 17:44 | Consultation ---
History of Present Illness Consult date: 03/04/19 Reason for consult: dyspnea History of present illness: PULMONARY AND CRITICAL CARE CONSULTATION DR. LENTZ THANK YOU FOR ASKING US TO PARTICIPATE IN THE CARE OF THIS PATIENT. 28 YO Female patient resident at [facility] multiple admissions in the past , noncompliant with medications , with past medical history of insulin-dependent DM with labile blood sugars, Addisons Disease, chronic hypotension ,Hypothyroidism, and seizure disorder was admitted through ED with history of uncontrolled blood sugar . Initial evaluation was consistent with hyperosmolar nonketotic hyperglycemia syndrome. Patient complained some shortness of breath on admission. Patient alert and awake. Resting on room air. No acute respiratory distress. No history of smoking, alcohol or drug abuse. Not working. Not and has two children Allergic to multiple medications. Penicillin, Vortoxetine,Ziprasidone and vancomycin. No ABGs obtained. Patient has nausea and vomiting on admission.. No chest xray obtained. Medications and Allergies Allergies Allergy/AdvReac Type Severity Reaction Status Date / Time Penicillins Allergy Angioedema Verified 12/31/18 16:01 vortioxetine Allergy Unknown Verified 12/31/18 16:01 [From Trintellix] ziprasidone [From Geodon] Allergy Angioedema Verified 12/31/18 16:01 vancomycin AdvReac Itching Verified 12/31/18 16:01 Home Medications Medication Instructions Recorded Confirmed Last Taken Type Levothyroxine [Synthroid] 125 mcg PO DAILY #30 tablet 02/17/19 03/03/19 02/23/19 Rx Lispro Insulin [HumaLOG] 0 unit SUB-Q ACHS units 02/17/19 03/03/19 02/23/19 Rx Sertraline [Zoloft] 25 mg PO QDAY #30 tablet 02/17/19 03/03/19 02/23/19 Rx levETIRAcetam [Keppra TAB] 500 mg PO BID #60 tablet 02/17/19 03/03/19 02/23/19 Rx Fludrocortisone [Florinef] 0.1 mg PO QDAY #30 tablet 02/25/19 03/03/19 Unknown Rx Hydrocortisone [Cortef TAB] 10 mg PO QAM #30 tablet 02/25/19 03/03/19 Unknown Rx Insulin Glargine [Lantus VIAL] 12 units SUB-Q QAM #10 ml 02/25/19 03/03/19 Unknown Rx Nitrofurantoin Sunflower/M-Cryst 100 mg PO Q12HR #14 capsule 02/28/19 03/03/19 Unkno wn Rx [Macrobid CAP] Ondansetron [Zofran Odt] 4 mg PO Q8HR PRN #20 tab.rapdis 02/28/19 03/03/19 Unknown Rx Active Meds: Active Medications Acetaminophen (Tylenol) 650 mg PO Q4H PRN PRN Reason: Pain MILD(1-3)/Fever >100.5/STEWARD Dextrose (D50w (25gm) Syringe) 0 ml IV PRN PRN PRN Reason: Hypoglycemia Last Admin: 03/04/19 06:34 Dose: 50 ml Documented by: Dextrose (D50w (25gm) Syringe) 50 ml IV PRN PRN PRN Reason: Hypoglycemia Enoxaparin Sodium (Lovenox) 30 mg SUB-Q QDAY [facility] Last Admin: 03/04/19 13:07 Dose: Not Given Documented by: Fludrocortisone Acetate (Florinef) 0.1 mg PO QDAY [facility] Last Admin: 03/04/19 13:05 Dose: 0.1 mg Documented by: Hydrocortisone Acetate (Cortef) 10 mg PO QAM [facility] Last Admin: 03/04/19 11:06 Dose: 10 mg Documented by: Hydrocortisone Acetate (Cortef) 5 mg PO QPM [facility] Sodium Chloride (Nacl 0.9% 1000 Ml) 1,000 mls @ 150 mls/hr IV DIRECT [facility] Dextrose/Sodium Chloride (D5/0.45ns) 1,000 mls @ 150 mls/hr IV DIRECT [facility] Last Admin: 03/04/19 03:45 Dose: 150 mls/hr Documented by: Insulin Glargine (Lantus) 12 units SUB-Q QHS [facility] Insulin Human Lispro (Humalog) 0 unit SUB-Q ACHS [facility]; Protocol Last Admin: 03/04/19 11:25 Dose: 3 unit Documented by: Levetiracetam (Keppra) 500 mg PO BID [facility] Last Admin: 03/04/19 11:17 Dose: 500 mg Documented by: Levothyroxine Sodium (Synthroid) 125 mcg PO DAILY [facility] Last Admin: 03/04/19 11:17 Dose: 125 mcg Documented by: Nitrofurantoin Macrocrystals (Macrobid) 100 mg PO Q12HR [facility] Last Admin: 03/04/19 11:06 Dose: 100 mg Documented by: Ondansetron HCl (Zofran) 4 mg IV Q4H PRN PRN Reason: Nausea And Vomiting Ondansetron HCl (Zofran Odt) 4 mg PO Q8HR PRN PRN Reason: Nausea Sertraline HCl (Zoloft) 25 mg PO QDAY [facility] Last Admin: 03/04/19 13:05 Dose: 25 mg Documented by: Sodium Chloride (Sodium Chloride Flush Syringe 10 Ml) 10 ml IV BID [facility] Sodium Chloride (Sodium Chloride Flush Syringe 10 Ml) 10 ml IV PRN PRN PRN Reason: LINE FLUSH Review of Systems All systems: negative Physical Examination Vital signs: Vital Signs Temp Pulse Resp BP Pulse Ox 99.0 F 51 L 16 101/71 97 03/03/19 16:59 03/03/19 16:59 03/03/19 16:59 03/03/19 16:59 03/03/19 16:59 General appearance: no acute distress, alert ENT: oropharynx moist Neck: supple, no JVD Ascultation: Bilateral: rhonchi (Occsional rhonchi) Cardiovascular: regular rate and rhythm Gastrointestinal: normoactive bowel sounds, soft Integumentary: normal Extremities: no cyanosis, no edema Musculoskeletal: no deformities Gait: normal gait normal mental status, non-focal exam, pupils equal and round, CN II-XII normal mood appropriate Results - Laboratory Findings CBC and BMP: 03/03/19 21:10 03/04/19 06:16 Abnormal lab findings: Abnormal Labs 03/03/19 03/03/19 03/03/19 19:56 21:10 21:10 RBC 3.15 L Hgb 8.8 L Hct 28.3 L RDW 17.4 H Seg Neuts % (Manual) 31.0 L Lymphocytes % (Manual) 58.0 H Seg Neutrophils # Man 1.7 L Sodium 126 L Potassium 6.4 H* D Chloride 92.8 L Carbon Dioxide 19 L D BUN 26 H Creatinine 1.5 H Glucose 773 H* POC Glucose > 500 H Calcium AST 188 H ALT 90 H Alkaline Phosphatase 158 H Total Protein 6.0 L 03/03/19 03/04/19 03/04/19 23:37 00:12 01:07 RBC Hgb Hct RDW Seg Neuts % (Manual) Lymphocytes % (Manual) Seg Neutrophils # Man Sodium 126 L Potassium 5.3 H Chloride 91.2 L Carbon Dioxide BUN 25 H Creatinine 1.4 H Glucose 776 H* POC Glucose > 500 H 456 H Calcium 8.0 L AST ALT Alkaline Phosphatase Total Protein 03/04/19 03/04/19 03/04/19 01:35 02:08 03:11 RBC Hgb Hct RDW Seg Neuts % (Manual) Lymphocytes % (Manual) Seg Neutrophils # Man Sodium 134 L D Potassium 3.4 L D Chloride Carbon Dioxide BUN 24 H Creatinine 1.3 H Glucose 367 H POC Glucose 353 H 194 H Calcium 8.1 L AST ALT Alkaline Phosphatase Total Protein 03/04/19 03/04/19 03/04/19 03:51 04:09 05:01 RBC Hgb Hct RDW Seg Neuts % (Manual) Lymphocytes % (Manual) Seg Neutrophils # Man Sodium Potassium 3.4 L Chloride Carbon Dioxide BUN 23 H Creatinine 1.3 H Glucose 140 H POC Glucose 184 H 123 H Calcium 8.2 L AST ALT Alkaline Phosphatase Total Protein 03/04/19 03/04/19 03/04/19 06:16 06:22 06:24 RBC Hgb Hct RDW Seg Neuts % (Manual) Lymphocytes % (Manual) Seg Neutrophils # Man Sodium 135 L Potassium Chloride Carbon Dioxide BUN 23 H Creatinine Glucose 37 L* POC Glucose 40 L < 40 L Calcium 8.0 L AST ALT Alkaline Phosphatase Total Protein 03/04/19 03/04/19 03/04/19 08:16 11:12 16:20 RBC Hgb Hct RDW Seg Neuts % (Manual) Lymphocytes % (Manual) Seg Neutrophils # Man Sodium Potassium Chloride Carbon Dioxide BUN Creatinine Glucose POC Glucose 134 H 253 H 375 H Calcium AST ALT Alkaline Phosphatase Total Protein Assessment and Plan 28 YO Female patient resident at [facility] multiple admissions in the past , noncompliant with medications , with past medical history of insulin-dependent DM with labile blood sugars, Addisons Disease, chronic hypotension ,Hypothyroidism, and seizure disorder was admitted through ED with history of uncontrolled blood sugar . Initial evaluation was consistent with hyperosmolar nonketotic hyperglycemia syndrome. Patient complained some shortness of breath on admission. Patient alert and awake. Resting on room air. No acute respiratory distress. No history of smoking, alcohol or drug abuse. Not working. Not and has two children Allergic to multiple medications. Penicillin, Vortoxetine,Ziprasidone and vancomycin. No ABGs obtained. Patient has nausea and vomiting on admission.. No chest xray obtained. - Patient Problems (1) Chest pain Current Visit: No Status: Acute Qualifiers: Chest pain type: unspecified Qualified Code(s): R07.9 - Chest pain, unspecified Plan to address problem: No complaint of chest pain at this time. (2) Uncontrolled diabetes mellitus Current Visit: No Status: Acute Plan to address problem: Management as per primary care. (3) [place]'s disease Current Visit: Yes Status: Acute Plan to address problem: Management as per primary care. (4) CKD (chronic kidney disease) Current Visit: Yes Status: Acute Plan to address problem: Management as per primary care and nephrology. (5) Hypothyroid Current Visit: No Status: Acute Qualifiers: Hypothyroidism type: acquired Qualified Code(s): E03.9 - Hypothyroidism, unspecified Plan to address problem: Patient is on Levothyroxine. Management as per primary care. (6) Nausea & vomiting Current Visit: No Status: Acute Plan to address problem: No Nausea, no vomiting now. Obtaining chest xray make sure no aspiration.
[2019-03-04] MEDS ORDERED: LANTUS SUB-Q SCH (22:00)
[2019-03-04] MEDS: SODIUM CHLORIDE FLUSH SYRINGE 10 ML IV SCH (22:07)
[2019-03-04] MEDS: D5W/0.45% NACL/KCL 20 MEQ 20 MEQ/1,000 ML BAG IV SCH (23:00)
[2019-03-04 23:50] LABS: Calcium 8.1 mg/dL (8.4-10.2)
[2019-03-05] MEDS: D5W/0.45% NACL/KCL 20 MEQ 20 MEQ/1,000 ML BAG IV SCH (07:16)
[2019-03-05] MEDS: HumaLOG SUB-Q SCH ×4 (07:30→21:03)
--- NOTE | 2019-03-05 08:06 | Progress Note ---
Assessment and Plan Hyperosmolar nonketotic hyperglycemia Acute kidney injury [place]'s disease Hypothyroid Anemia of chronic disease, continue to monitor H&H Seizure disorder Elevated LFT (? fatty liver) - continue glycemic control with SSI for target BG < 180 mg/dl - continue gentle hydration re: BRANDEE - continue steroid replacement therapy for christine's - continue synthroid therapy - continue to monitor H&H - continue keppra therapy for seizures - continue GI & VTE prophylaxis .... re-evaluate in am & prn Subjective Date of service: 03/05/19 Principal diagnosis: HNKK; Acute kidney injury; [place]'s disease; Hypothyroid; Seizure disorder Interval history: Patient is seen today for: Hyperosmolar nonketotic hyperglycemia; Acute kidney injury; [place]'s disease; Hypothyroid; Anemia of chronic disease; Seizure disorder Seen and examined at bedside; 24hour events reviewed; nursing and respiratory care staff consulted; no adverse overnight events reported to me; resting peacefully in bed; denies acute chest pains or palpitations; remains on IVF; feels better overall Objective Vital Signs - 12hr 03/05/19 03/05/19 00:10 05:07 Temperature 97.9 F 97.6 F Pulse Rate 81 76 Respiratory 16 16 Rate Blood Pressure 103/67 120/83 O2 Sat by Pulse 98 98 Oximetry Constitutional: no acute distress, alert ENT: oropharynx moist Neck: supple, no JVD Effort: mildly labored Ascultation: Bilateral: rhonchi Percussion: Bilateral: not dull Cardiovascular: regular rate and rhythm Gastrointestinal: normoactive bowel sounds, soft Integumentary: normal Extremities: no cyanosis, no edema, pink and warm, pulses normal Neurologic: normal mental status, non-focal exam, pupils equal and round, CN II- XII normal Psychiatric: mood appropriate, affect normal CBC and BMP: 03/03/19 21:10 03/05/19 Unknown Abnormal lab findings: Abnormal Labs 03/03/19 03/03/19 03/03/19 19:56 21:10 21:10 RBC 3.15 L Hgb 8.8 L Hct 28.3 L RDW 17.4 H Seg Neuts % (Manual) 31.0 L Lymphocytes % (Manual) 58.0 H Seg Neutrophils # Man 1.7 L Sodium 126 L Potassium 6.4 H* D Chloride 92.8 L Carbon Dioxide 19 L D BUN 26 H Creatinine 1.5 H Glucose 773 H* POC Glucose > 500 H Calcium AST 188 H ALT 90 H Alkaline Phosphatase 158 H Total Protein 6.0 L 03/03/19 03/04/19 03/04/19 23:37 00:12 01:07 RBC Hgb Hct RDW Seg Neuts % (Manual) Lymphocytes % (Manual) Seg Neutrophils # Man Sodium 126 L Potassium 5.3 H Chloride 91.2 L Carbon Dioxide BUN 25 H Creatinine 1.4 H Glucose 776 H* POC Glucose > 500 H 456 H Calcium 8.0 L AST ALT Alkaline Phosphatase Total Protein 03/04/19 03/04/19 03/04/19 01:35 02:08 03:11 RBC Hgb Hct RDW Seg Neuts % (Manual) Lymphocytes % (Manual) Seg Neutrophils # Man Sodium 134 L D Potassium 3.4 L D Chloride Carbon Dioxide BUN 24 H Creatinine 1.3 H Glucose 367 H POC Glucose 353 H 194 H Calcium 8.1 L AST ALT Alkaline Phosphatase Total Protein 03/04/19 03/04/19 03/04/19 03:51 04:09 05:01 RBC Hgb Hct RDW Seg Neuts % (Manual) Lymphocytes % (Manual) Seg Neutrophils # Man Sodium Potassium 3.4 L Chloride Carbon Dioxide BUN 23 H Creatinine 1.3 H Glucose 140 H POC Glucose 184 H 123 H Calcium 8.2 L AST ALT Alkaline Phosphatase Total Protein 03/04/19 03/04/19 03/04/19 06:16 06:22 06:24 RBC Hgb Hct RDW Seg Neuts % (Manual) Lymphocytes % (Manual) Seg Neutrophils # Man Sodium 135 L Potassium Chloride Carbon Dioxide BUN 23 H Creatinine Glucose 37 L* POC Glucose 40 L < 40 L Calcium 8.0 L AST ALT Alkaline Phosphatase Total Protein 03/04/19 03/04/19 03/04/19 08:16 11:12 16:20 RBC Hgb Hct RDW Seg Neuts % (Manual) Lymphocytes % (Manual) Seg Neutrophils # Man Sodium Potassium Chloride Carbon Dioxide BUN Creatinine Glucose POC Glucose 134 H 253 H 375 H Calcium AST ALT Alkaline Phosphatase Total Protein 03/04/19 03/04/19 03/05/19 21:42 23:00 03:52 RBC Hgb Hct RDW Seg Neuts % (Manual) Lymphocytes % (Manual) Seg Neutrophils # Man Sodium Potassium Chloride Carbon Dioxide BUN 22 H Creatinine 1.3 H Glucose 208 H POC Glucose 247 H 488 H Calcium 8.1 L AST ALT Alkaline Phosphatase Total Protein Chest x-ray: image reviewed Allied health notes reviewed: nursing
--- NOTE | 2019-03-05 08:37 | Progress Note ---
Assessment and Plan Assessment and plan: 28 YO Female patient resident at [facility] multiple admissions in the past , noncompliant with medications , with past medical history of insulin-dependent DM with labile blood sugars, Addisons Disease, chronic hypotension ,Hypothyroidism, and seizure disorder was admitted through ED with history of uncontrolled blood sugar . Initial evaluation was consistent with hyperosmolar nonketotic hyperglycemia syndrome, patient did not have acidosis ketosis. Patient was admitted for further medication management. Of note she was discharged just a couple days ago after being treated for similar presentation. / Hyperosmolar nonketotic hyperglycemia in type 1 diabetes mellitus, POA The patient has had recurrent admission in the hospital for the same reason this has gone way back to August 2018 Patient again Presentation blood glucose was greater than 800, admitted to ICU on insulin drip improved and was Downgraded to floor This morning patient was noted to still be on D5N Adjust insulin Dose, will try 10 units BID of long acting insulin and minimize the short acting which causes temporal drop in this patient and rebound consistent carb diet, Long-acting insulin and SSI. 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 /Anemia of chronic disease, continue to monitor H&H /-H/O Seizure continue keppra therapy, /Elevated LFT, likely from fatty liver, /DVT prophylaxis, continue Lovenox Patient will benefit from insulin pump. she follows with Surgical Sales Representative outpatient Will monitor and if stable, patient can be discharge in am History Interval history: Seen and examined doing well, she is frustrated at the multiple admissions in the hospital due to her medical condition. concern for none compliance discuss ed. Patient assures team that she is compliant and does not aas much drink juice at home except her in the hospital Hospitalist Physical - Physical exam Narrative exam: VITAL SIGNS: Reviewed. GENERAL: The patient appears normally developed, Vital signs as documented. HEAD: No signs of head trauma. EYES: Pupils are equal. Extraocular motions intact. EARS: Hearing grossly intact. MOUTH: Oropharynx is normal. NECK: No adenopathy, no JVD. CHEST: Chest with clear breath sounds bilaterally. No wheezes, rales, or rh onchi. CARDIAC: Regular rate and rhythm. S1 and S2, without murmurs, gallops, or rubs. VASCULAR: No Edema. Peripheral pulses normal and equal in all extremities. ABDOMEN: Soft, non tender and non distended. No rebound or guarding, and no masses palpated. Bowel Sounds normal. MUSCULOSKELETAL: Good range of motion of all major joints. Extremities without clubbing, cyanosis or edema. NEUROLOGIC EXAM: Alert and oriented x 3 No focal sensory or strength deficits. Speech normal. Follows commands. PSYCHIATRIC: Mood normal. SKIN: detial exam as documented in skin assessment - Constitutional Vitals: Temp Pulse Resp BP Pulse Ox 97.6 F 76 16 120/83 98 03/05/19 05:07 03/05/19 05:07 03/05/19 05:07 03/05/19 05:07 03/05/19 05:07 Results - Labs CBC & Chem 7: 03/03/19 21:10 03/05/19 09:25 Labs: Laboratory Last Values WBC 5.6 K/mm3 (4.5-11.0) 03/03/19 21:10 RBC 3.15 M/mm3 (3.65-5.03) L 03/03/19 21:10 Hgb 8.8 gm/dl (10.1-14.3) L 03/03/19 21:10 Hct 28.3 % (30.3-42.9) L 03/03/19 21:10 MCV 90 fl (79-97) 03/03/19 21:10 MCH 28 pg (28-32) 03/03/19 21:10 MCHC 31 % (30-34) 03/03/19 21:10 RDW 17.4 % (13.2-15.2) H 03/03/19 21:10 Plt Count 257 K/mm3 (140-440) 03/03/19 21:10 Lymph % (Auto) Health Care Consultant 03/03/19 21:10 Add Manual Diff Complete 03/03/19 21:10 Total Counted 100 03/03/19 21:10 Seg Neutrophils % Health Care Consultant 03/03/19 21:10 Seg Neuts % (Manual) 31.0 % (40.0-70.0) L 03/03/19 21:10 0 % 03/03/19 21:10 58.0 % (13.4-35.0) H 03/03/19 21:10 Reactive Lymphs % (Man) 0 % 03/03/19 21:10 6.0 % (0.0-7.3) 03/03/19 21:10 4.0 % (0.0-4.3) 03/03/19 21:10 1.0 % (0.0-1.8) 03/03/19 21:10 0 % 03/03/19 21:10 0 % 03/03/19 21:10 0 % 03/03/19 21:10 0 % 03/03/19 21:10 Nucleated RBC % Not Reportable 03/03/19 21:10 Seg Neutrophils # Man 1.7 K/mm3 (1.8-7.7) L 03/03/19 21:10 Band Neutrophils # 0.0 K/mm3 03/03/19 21:10 3.2 K/mm3 (1.2-5.4) 03/03/19 21:10 Abs React Lymphs (Man) 0.0 K/mm3 03/03/19 21:10 0.3 K/mm3 (0.0-0.8) 03/03/19 21:10 0.2 K/mm3 (0.0-0.4) 03/03/19 21:10 0.1 K/mm3 (0.0-0.1) 03/03/19 21:10 0.0 K/mm3 03/03/19 21:10 0.0 K/mm3 03/03/19 21:10 0.0 K/mm3 03/03/19 21:10 Blast Cells # 0.0 K/mm3 03/03/19 21:10 WBC Morphology Not Reportable 03/03/19 21:10 Hypersegmented Neuts Not Reportable 03/03/19 21:10 Hyposegmented Neuts Not Reportable 03/03/19 21:10 Hypogranular Neuts Not Reportable 03/03/19 21:10 Not Reportable 03/03/19 21:10 Not Reportable 03/03/19 21:10 Not Reportable 03/03/19 21:10 Not Reportable 03/03/19 21:10 Not Reportable 03/03/19 21:10 Not Reportable 03/03/19 21:10 Not Reportable 03/03/19 21:10 Not Reportable 03/03/19 21:10 Plt Clumps, EDTA Not Reportable 03/03/19 21:10 Not Reportable 03/03/19 21:10 Not Reportable 03/03/19 21:10 Not Reportable 03/03/19 21:10 Plt Morphology Comment Not Reportable 03/03/19 21:10 RBC Morphology Normal 03/03/19 21:10 Dimorphic RBCs Not Reportable 03/03/19 21:10 Not Reportable 03/03/19 21:10 Not Reportable 03/03/19 21:10 Not Reportable 03/03/19 21:10 Not Reportable 03/03/19 21:10 Not Reportable 03/03/19 21:10 Not Reportable 03/03/19 21:10 Not Reportable 03/03/19 21:10 Not Reportable 03/03/19 21:10 Not Reportable 03/03/19 21:10 Not Reportable 03/03/19 21:10 Not Reportable 03/03/19 21:10 Not Reportable 03/03/19 21:10 Not Reportable 03/03/19 21:10 Not Reportable 03/03/19 21:10 Not Reportable 03/03/19 21:10 Not Reportable 03/03/19 21:10 Not Reportable 03/03/19 21:10 Not Reportable 03/03/19 21:10 Not Reportable 03/03/19 21:10 Acanthocytes (Spur) Not Reportable 03/03/19 21:10 Rouleaux Not Reportable 03/03/19 21:10 Not Reportable 03/03/19 21:10 Not Reportable 03/03/19 21:10 Not Reportable 03/03/19 21:10 Not Reportable 03/03/19 21:10 Hem Pathologist Commnt No 03/03/19 21:10 Sodium 138 mmol/L (137-145) 03/04/19 23:00 Potassium 4.0 mmol/L (3.6-5.0) 03/04/19 23:00 Chloride 100.8 mmol/L (98-107) 03/04/19 23:00 Carbon Dioxide 26 mmol/L (22-30) 03/04/19 23:00 15 mmol/L 03/04/19 23:00 BUN 22 mg/dL (7-17) H 03/04/19 23:00 1.3 mg/dL (0.7-1.2) H 03/04/19 23:00 Estimated GFR 49 ml/min 03/04/19 23:00 17 % 03/04/19 23:00 Glucose 208 mg/dL (65-100) H 03/04/19 23:00 POC Glucose > 500 (70-105) H 03/05/19 08:36 Calcium 8.1 mg/dL (8.4-10.2) L 03/04/19 23:00 Magnesium 1.80 mg/dL (1.7-2.3) 03/03/19 21:42 0.30 mg/dL (0.1-1.2) 03/03/19 21:10 AST 188 units/L (5-40) H 03/03/19 21:10 ALT 90 units/L (7-56) H 03/03/19 21:10 158 units/L (35-129) H 03/03/19 21:10 47 units/L (30-135) 03/03/19 21:42 6.0 g/dL (6.3-8.2) L 03/03/19 21:10 3.9 g/dL (3.9-5) 03/03/19 21:10 1.9 % 03/03/19 21:10 Straw (Yellow) 03/03/19 18:40 Clear (Clear) 03/03/19 18:40 6.0 (5.0-7.0) 03/03/19 18:40 Ur Specific [place] 1.013 (1.003-1.030) 03/03/19 18:40 <15 mg/dl mg/dL (Negative) 03/03/19 18:40 >=500 mg/dL (Negative) 03/03/19 18:40 Neg mg/dL (Negative) 03/03/19 18:40 Neg (Negative) 03/03/19 18:40 Neg (Negative) 03/03/19 18:40 Neg (Negative) 03/03/19 18:40 < 2.0 mg/dL (<2.0) 03/03/19 18:40 Ur Leukocyte Esterase Sm (Negative) 03/03/19 18:40 3.0 /HPF (0.0-6.0) 03/03/19 18:40 < 1.0 /HPF (0.0-6.0) 03/03/19 18:40 U Epithel Cells (Auto) 1.0 /HPF (0-13.0) 03/03/19 18:40 Active Medications - Current Medications Current Medications: Generic Name Dose Route Start Last Admin Trade Name Freq PRN Reason Stop Dose Admin Acetaminophen 650 mg 03/03/19 23:32 Tylenol PO Q4H PRN Pain MILD(1-3)/Fever >100.5/STEWARD Dextrose 0 ml 03/03/19 23:06 03/04/19 06:34 D50w (25gm) Syringe IV 50 ml PRN PRN Administration Hypoglycemia Dextrose 50 ml 03/04/19 08:25 D50w (25gm) Syringe IV PRN PRN Hypoglycemia Enoxaparin Sodium 30 mg 03/04/19 10:00 03/04/19 13:07 Lovenox SUB-Q Not Given QDAY MARINO Fludrocortisone Acetate 0.1 mg 03/04/19 10:00 03/04/19 13:05 Florinef PO 0.1 mg QDAY MARINO Administration Hydrocortisone Acetate 10 mg 03/04/19 10:00 03/04/19 11:06 Cortef PO 10 mg QAM MARINO Administration Hydrocortisone Acetate 5 mg 03/04/19 18:00 03/04/19 17:42 Cortef PO 5 mg QPM MARINO Administration Sodium Chloride 1,000 mls @ 150 mls/hr 03/03/19 23:45 Nacl 0.9% 1000 Ml IV DIRECT [facility] Insulin Glargine 12 units 03/04/19 22:00 03/04/19 23:10 Lantus SUB-Q Not Given QHS [facility] Insulin Human Lispro 0 unit 03/04/19 11:30 03/04/19 23:10 Humalog SUB-Q Not Given ACHS [facility] Protocol Levetiracetam 500 mg 03/04/19 10:00 03/04/19 22:07 Keppra PO 500 mg BID MARINO Administration Levothyroxine Sodium 125 mcg 03/04/19 10:00 03/04/19 11:17 Synthroid PO 125 mcg DAILY MARINO Administration Nitrofurantoin Macrocrystals 100 mg 03/04/19 10:00 03/04/19 22:07 Macrobid PO 100 mg Q12HR MARINO Administration Ondansetron HCl 4 mg 03/03/19 23:32 Zofran IV Q4H PRN Nausea And Vomiting Ondansetron HCl 4 mg 03/04/19 09:00 Zofran Odt PO Q8HR PRN Nausea Oxycodone/Acetaminophen 1 tab 03/05/19 03:14 Percocet 5/325 PO Q6H PRN Pain, Moderate (4-6) Sertraline HCl 25 mg 03/04/19 10:00 03/04/19 13:05 Zoloft PO 25 mg QDAY MARINO Administration Sodium Chloride 10 ml 03/04/19 10:00 03/04/19 22:07 Sodium Chloride Flush Syringe 10 Ml IV 10 ml BID MARINO Administration Sodium Chloride 10 ml 03/03/19 23:32 Sodium Chloride Flush Syringe 10 Ml IV PRN PRN LINE FLUSH
[2019-03-05] MEDS ORDERED: HumuLIN R SUB-Q ONE ×2 (09:00→14:30)
--- NOTE | 2019-03-05 09:22 | XRay Report ---
CHEST 2 VIEWS INDICATION: R/O Aspiration.. COMPARISON: 02/28/2019 FINDINGS: Support devices: There appears to be a right subclavian [id number] terminating near the cavoatrial junction. Heart: Within normal limits. Lungs/pleura: No acute air space or interstitial disease. No pneumothorax. Additional findings: None. IMPRESSION: No acute findings. No significant change since 02/28/2019. Signer Name: Nael Veloz Jr, MD Signed: 03/05/2019 9:18 AM Workstation Name: [id number]
[2019-03-05] MEDS: LOVENOX SUB-Q SCH (09:36)
[2019-03-05] MEDS: SYNTHROID PO SCH (09:37)
[2019-03-05] MEDS: KEPPRA PO SCH ×2 (09:37→21:01)
[2019-03-05] MEDS: FLORINEF PO SCH (09:38)
[2019-03-05] MEDS: MACROBID PO SCH ×2 (09:38→22:10)
[2019-03-05] MEDS: ZOLOFT PO SCH (09:38)
[2019-03-05] MEDS: SODIUM CHLORIDE FLUSH SYRINGE 10 ML IV SCH ×3 (09:39→21:04)
[2019-03-05] MEDS: CORTEF PO SCH ×2 (09:39→18:03)
[2019-03-05] MEDS: LANTUS SUB-Q SCH (10:30)
[2019-03-05] MEDS ORDERED: NACL 0.9% 1000 ML 1,000 ML IV ONE (11:00)
[2019-03-05] MEDS ORDERED: NACL 0.9% 1000 ML 3,000 ML IV ONE (14:30)
[2019-03-05] MEDS: NACL 0.9% 1000 ML 1,000 ML IV SCH ×3 (15:15→17:57)
[2019-03-05] MEDS: PERCOCET 5/325 PO PRN (22:11)
[2019-03-06] MEDS: LANTUS SUB-Q SCH ×2 (01:10→10:00)
[2019-03-06] MEDS: HumaLOG SUB-Q SCH ×2 (07:30→12:34)
[2019-03-06] MEDS ORDERED: LOVENOX SUB-Q SCH (10:00)
[2019-03-06] MEDS: MACROBID PO SCH (11:30)
[2019-03-06] MEDS: CORTEF PO SCH (11:30)
[2019-03-06] MEDS: FLORINEF PO SCH (11:30)
[2019-03-06] MEDS: KEPPRA PO SCH (11:30)
[2019-03-06] MEDS: SODIUM CHLORIDE FLUSH SYRINGE 10 ML IV SCH (11:31)
[2019-03-06] MEDS: SYNTHROID PO SCH (11:31)
[2019-03-06] MEDS: PERCOCET 5/325 PO PRN (11:42)
[2019-03-06] MEDS: ZOLOFT PO SCH (11:43)
--- NOTE | 2019-03-06 13:02 | Discharge Summary ---
Providers - Providers Date of Admission: 03/03/19 23:32 Attending physician: IZABELLA LENTZ MD 03/03/19 23:32 Consult to Physician [CONS] Routine Comment: Consulting Provider: SEDRICK HARRIS Physician Instructions: Reason For Exam: cc Primary care physician: HOST Hospitalization Condition: Serious Hospital course: 28 YO Female patient resident at [facility] multiple admissions in the past , noncompliant with medications , with past medical history of insulin-dependent DM with labile blood sugars, Addisons Disease, chronic hypotension ,Hypothyroidism, and seizure disorder was admitted through ED with history of uncontrolled blood sugar . Initial evaluation was consistent with hyperosmolar nonketotic hyperglycemia syndrome, patient did not have acidosis ketosis. Patient was admitted for further medication management. Of note she was discharged just a couple days ago after being treated for similar presentation. / Hyperosmolar nonketotic hyperglycemia in type 1 diabetes mellitus, POA The patient has had recurrent admission in the hospital for the same reason this has gone way back to August 2018 Patient again Presentation blood glucose was greater than 800, admitted to ICU on insulin drip improved and was Downgraded to floor This morning patient was noted to still be on D5N Adjust insulin Dose, will try 10 units BID of long acting insulin and minimize the short acting which causes temporal drop in this patient and rebound consistent carb diet, Long-acting insulin and SSI. increased long acting insulin dose to improve BG level Recurrent hyperglycemia and hypoglycemia /-Episodes of hypoglycemia; resolved patient has h/o very labile blood sugars with intermittent hypoglycemia, Adjust insulin dose as needed, encouraged patient to comply with regular meals and to adjust insulin dose with carb count /-BRANDEE (acute kidney injury) on possible CKD stage II3 - likely from vasomotor nephropathy Placed on IVF resuscitation therapy, monitored uop q shift, monitored serum creatinine Improved /- H/O [place]'s disease continue steroid and fludrocortisone therapy, / Hypothyroid Continue synthroid therapy, supportive care. /Anemia of chronic disease, continue to monitor H&H /-H/O Seizure continue keppra therapy, /Elevated LFT, likely from fatty liver, /DVT prophylaxis, continue Lovenox Patient will benefit from insulin pump. she follows with Paint Laboratory Technician outpatient Will monitor and if stable, patient can be discharge in am Disposition: - TO HOME OR SELFCARE Exam - Constitutional Vitals: Temp Pulse Resp BP Pulse Ox 97.8 F 73 18 98/67 100 03/06/19 11:48 03/06/19 11:48 03/06/19 11:48 03/06/19 11:48 03/06/19 11:48 Plan Activity: advance as tolerated, fall precautions Diet: diabetic Special Instructions: record daily weights, record daily BP diary, record blood sugar diary Additional Instructions: follow with primary scanning coordinator Follow up with: PRIMARY CARE,MD [Primary Care Provider] - 3-5 Days Prescriptions: Hydrocortisone [Cortef TAB] 5 mg PO QPM #30 tablet Insulin Glargine [Lantus VIAL] 10 units SUB-Q BID #60 units
--- NOTE | 2019-03-06 13:46 | Progress Note ---
Assessment and Plan Hyperosmolar nonketotic hyperglycemia Acute kidney injury [place]'s disease Hypothyroid Anemia of chronic disease, continue to monitor H&H Seizure disorder Elevated LFT (? fatty liver) - continue glycemic control with SSI for target BG < 180 mg/dl - continue gentle hydration re: BRANDEE - continue steroid replacement therapy for christine's - continue synthroid therapy - continue to monitor H&H - continue keppra therapy for seizures - continue GI & VTE prophylaxis .... re-evaluate in am & prn Subjective Date of service: 03/06/19 Principal diagnosis: HNKK; Acute kidney injury; [place]'s disease; Hypothyroid; Seizure disorder Interval history: Patient is seen today for: Hyperosmolar nonketotic hyperglycemia; Acute kidney injury; [place]'s disease; Hypothyroid; Anemia of chronic disease; Seizure disorder Seen and examined at bedside; 24hour events reviewed; nursing and respiratory care staff consulted; no adverse overnight events reported to me; resting peacefully in bed; Objective Vital Signs - 12hr 03/06/19 03/06/19 05:18 11:48 Temperature 97.6 F 97.8 F Pulse Rate 70 73 Respiratory 16 18 Rate Blood Pressure 95/64 98/67 O2 Sat by Pulse 98 100 Oximetry Constitutional: no acute distress, alert ENT: oropharynx moist Neck: supple, no JVD Effort: mildly labored Ascultation: Bilateral: rhonchi Percussion: Bilateral: not dull Cardiovascular: regular rate and rhythm Gastrointestinal: normoactive bowel sounds, soft Integumentary: normal Extremities: no cyanosis, no edema, pink and warm, pulses normal Neurologic: normal mental status, non-focal exam, pupils equal and round, CN II- XII normal Psychiatric: mood appropriate, affect normal CBC and BMP: 03/03/19 21:10 03/05/19 Unknown Abnormal lab findings: Abnormal Labs 03/03/19 03/03/19 03/03/19 19:56 21:10 21:10 RBC 3.15 L Hgb 8.8 L Hct 28.3 L RDW 17.4 H Seg Neuts % (Manual) 31.0 L Lymphocytes % (Manual) 58.0 H Seg Neutrophils # Man 1.7 L Sodium 126 L Potassium 6.4 H* D Chloride 92.8 L Carbon Dioxide 19 L D BUN 26 H Creatinine 1.5 H Glucose 773 H* POC Glucose > 500 H Calcium AST 188 H ALT 90 H Alkaline Phosphatase 158 H Total Protein 6.0 L 03/03/19 03/04/19 03/04/19 23:37 00:12 01:07 RBC Hgb Hct RDW Seg Neuts % (Manual) Lymphocytes % (Manual) Seg Neutrophils # Man Sodium 126 L Potassium 5.3 H Chloride 91.2 L Carbon Dioxide BUN 25 H Creatinine 1.4 H Glucose 776 H* POC Glucose > 500 H 456 H Calcium 8.0 L AST ALT Alkaline Phosphatase Total Protein 03/04/19 03/04/19 03/04/19 01:35 02:08 03:11 RBC Hgb Hct RDW Seg Neuts % (Manual) Lymphocytes % (Manual) Seg Neutrophils # Man Sodium 134 L D Potassium 3.4 L D Chloride Carbon Dioxide BUN 24 H Creatinine 1.3 H Glucose 367 H POC Glucose 353 H 194 H Calcium 8.1 L AST ALT Alkaline Phosphatase Total Protein 03/04/19 03/04/19 03/04/19 03:51 04:09 05:01 RBC Hgb Hct RDW Seg Neuts % (Manual) Lymphocytes % (Manual) Seg Neutrophils # Man Sodium Potassium 3.4 L Chloride Carbon Dioxide BUN 23 H Creatinine 1.3 H Glucose 140 H POC Glucose 184 H 123 H Calcium 8.2 L AST ALT Alkaline Phosphatase Total Protein 03/04/19 03/04/19 03/04/19 06:16 06:22 06:24 RBC Hgb Hct RDW Seg Neuts % (Manual) Lymphocytes % (Manual) Seg Neutrophils # Man Sodium 135 L Potassium Chloride Carbon Dioxide BUN 23 H Creatinine Glucose 37 L* POC Glucose 40 L < 40 L Calcium 8.0 L AST ALT Alkaline Phosphatase Total Protein 03/04/19 03/04/19 03/04/19 08:16 11:12 16:20 RBC Hgb Hct RDW Seg Neuts % (Manual) Lymphocytes % (Manual) Seg Neutrophils # Man Sodium Potassium Chloride Carbon Dioxide BUN Creatinine Glucose POC Glucose 134 H 253 H 375 H Calcium AST ALT Alkaline Phosphatase Total Protein 03/04/19 03/04/19 03/05/19 21:42 23:00 03:52 RBC Hgb Hct RDW Seg Neuts % (Manual) Lymphocytes % (Manual) Seg Neutrophils # Man Sodium Potassium Chloride Carbon Dioxide BUN 22 H Creatinine 1.3 H Glucose 208 H POC Glucose 247 H 488 H Calcium 8.1 L AST ALT Alkaline Phosphatase Total Protein 03/05/19 03/05/19 03/05/19 08:36 09:25 11:15 RBC Hgb Hct RDW Seg Neuts % (Manual) Lymphocytes % (Manual) Seg Neutrophils # Man Sodium Potassium Chloride Carbon Dioxide BUN Creatinine Glucose 796 H* POC Glucose > 500 H > 500 H Calcium AST ALT Alkaline Phosphatase Total Protein 03/05/19 03/05/19 03/05/19 13:12 17:00 21:01 RBC Hgb Hct RDW Seg Neuts % (Manual) Lymphocytes % (Manual) Seg Neutrophils # Man Sodium Potassium Chloride Carbon Dioxide BUN Creatinine Glucose POC Glucose > 500 H 201 H < 40 L Calcium AST ALT Alkaline Phosphatase Total Protein 03/05/19 03/05/19 03/06/19 22:15 Unknown 08:16 RBC Hgb Hct RDW Seg Neuts % (Manual) Lymphocytes % (Manual) Seg Neutrophils # Man Sodium Potassium Chloride Carbon Dioxide BUN Creatinine Glucose 116 H POC Glucose 42 L 148 H Calcium AST ALT Alkaline Phosphatase Total Protein 03/06/19 11:56 RBC Hgb Hct RDW Seg Neuts % (Manual) Lymphocytes % (Manual) Seg Neutrophils # Man Sodium Potassium Chloride Carbon Dioxide BUN Creatinine Glucose POC Glucose 113 H Calcium AST ALT Alkaline Phosphatase Total Protein Allied health notes reviewed: nursing
[2019-03-06] MEDS ORDERED: FLUSH HEPARIN IV ONE (17:03)
[2019-03-06] MEDS ORDERED: TRIPLE ANTIBIOTIC TP ONE (17:04)
[2019-03-06 18:35] VITALS: BP 101/69
== END 2019-03-06 19:00 | disposition home or self-care (01) | DRG 638 ==
LOC: ED 16:53 → CC1 23:32 → 3A 03-04 08:51
PROVIDERS: ADMIT Internal Medicine; ATTEND Internal Medicine
PROC: 4A033R1 Measurement of Arterial Saturation, Peripheral, Percutaneous Approach (ICD-10-PCS; principal; 2019-03-05)
DX: E10.69 Type 1 diabetes mellitus with other specified complication (principal); E27.1 Primary adrenocortical insufficiency; N17.0 Acute kidney failure with tubular necrosis; E10.22 Type 1 diabetes mellitus with diabetic chronic kidney disease; E10.649 Type 1 diabetes mellitus with hypoglycemia without coma; K90.0 Celiac disease; E87.5 Hyperkalemia; F32.9 Major depressive disorder, single episode, unspecified; D63.8 Anemia in other chronic diseases classified elsewhere; I95.9 Hypotension, unspecified; G40.909 Epilepsy, unspecified, not intractable, without status epilepticus; E03.9 Hypothyroidism, unspecified; N18.3 Chronic kidney disease, stage 3 (moderate); Z88.0 Allergy status to penicillin; Z91.14 Patient's other noncompliance with medication regimen; Z88.8 Allergy status to other drugs, medicaments and biological substances
CPT/HCPCS: 36415; 36600; 71046; 80048; 80053; 81001; 82550; 82947; 82962; 83735; 85007; 85025; 90732; 93005; 93010; G0378; A6250; J1642; J1650; J1815; J2405; J7030; Q0162

== ENCOUNTER 2019-03-09 10:12 | Emergency (ER) | payer MEDICAID ==
[2019-03-09] MEDS ORDERED: D50W (25GM) Syringe IV ONE (11:41)
[2019-03-09] MEDS ORDERED: GLUCAGEN IV ONE (11:41)
--- NOTE | 2019-03-09 11:50 | Emergency Department Report ---
ED General Adult HPI - General Chief complaint: Hypoglycemia Stated complaint: HYPOGLYCEMIA Time Seen by Provider: 03/09/19 11:04 Source: patient, EMS Mode of arrival: Stretcher Limitations: No Limitations - History of Present Illness Initial comments: Disposition presents to the emergency department for hypoglycemia. The patient has a history of hypoglycemia. Patient was given initial oral glucose by EMS because she refuses an IV. Per EMS her glucose was in the high 30s and low 40s upon arrival. Patient denies any chest pain, shortness breath, or abdominal pain. -: Sudden Consistency: now resolved Improves with: none Worsens with: none Associated Symptoms: denies other symptoms Treatments Prior to Arrival: none - Related Data Previous Rx's Medication Instructions Recorded Last Taken Type Levothyroxine [Synthroid] 125 mcg PO DAILY #30 tablet 02/17/19 02/23/19 Rx Lispro Insulin [HumaLOG] 0 unit SUB-Q ACHS units 02/17/19 02/23/19 Rx Sertraline [Zoloft] 25 mg PO QDAY #30 tablet 02/17/19 02/23/19 Rx levETIRAcetam [Keppra TAB] 500 mg PO BID #60 tablet 02/17/19 02/23/19 Rx Fludrocortisone [Florinef] 0.1 mg PO QDAY #30 tablet 02/25/19 Unknown Rx Hydrocortisone [Cortef TAB] 10 mg PO QAM #30 tablet 02/25/19 Unknown Rx Nitrofurantoin [place]/M-Cryst 100 mg PO Q12HR #14 capsule 02/28/19 Unknown Rx [Macrobid CAP] Ondansetron [Zofran ODT TAB] 4 mg PO Q8HR PRN #20 tab.rapdis 02/28/19 Unknown Rx Blood Sugar Diagnostic [Test 1 each MC BID #100 strip 03/06/19 Unknown Rx Strips] Hydrocortisone [Cortef TAB] 5 mg PO QPM #30 tablet 03/06/19 Unknown Rx Insulin Glargine [Lantus VIAL] 10 units SUB-Q BID #60 units 03/06/19 Unknown Rx Syringe and Needle,Insulin,1Ml 1 each MC BID #1 box 03/06/19 Unknown Rx [Insulin Syringe/Needle 1 ML] Allergies Allergy/AdvReac Type Severity Reaction Status Date / Time Penicillins Allergy Angioedema Verified 12/31/18 16:01 vortioxetine Allergy Unknown Verified 12/31/18 16:01 [From Trintellix] ziprasidone [From Geodon] Allergy Angioedema Verified 12/31/18 16:01 vancomycin AdvReac Itching Verified 12/31/18 16:01 ED Review of Systems ROS: Stated complaint: HYPOGLYCEMIA Other details as noted in HPI Constitutional: denies: chills, fever Eyes: denies: eye pain, eye discharge, vision change ENT: denies: ear pain, throat pain Respiratory: denies: cough, shortness of breath, wheezing Cardiovascular: denies: chest pain, palpitations Endocrine: no symptoms reported Gastrointestinal: denies: abdominal pain, nausea, diarrhea Genitourinary: denies: urgency, dysuria, discharge Musculoskeletal: denies: back pain, joint swelling, arthralgia Skin: denies: rash, lesions Neurological: denies: headache, weakness, paresthesias Psychiatric: denies: anxiety, depression Hematological/Lymphatic: denies: easy bleeding, easy bruising ED Past Medical Hx - Past Medical History Hx Congestive Heart Failure: No Hx Diabetes: Yes (Type 1) Hx Renal Disease: Yes Hx Seizures: Yes Hx Asthma: No Hx COPD: No Additional medical history: hypotension, hypothyroidism, [place]'s disease, Depression, Celiac - Surgical History Hx Cholecystectomy: Yes Hx Appendectomy: Yes Additional Surgical History: 4. port right chest wall - Social History Smoking Status: Never Smoker Substance Use Type: None - Medications Home Medications: Home Medications Medication Instructions Recorded Confirmed Last Taken Type Levothyroxine [Synthroid] 125 mcg PO DAILY #30 tablet 02/17/19 03/03/19 02/23/19 Rx Lispro Insulin [HumaLOG] 0 unit SUB-Q ACHS units 02/17/19 03/03/19 02/23/19 Rx Sertraline [Zoloft] 25 mg PO QDAY #30 tablet 02/17/19 03/03/19 02/23/19 Rx levETIRAcetam [Keppra TAB] 500 mg PO BID #60 tablet 02/17/19 03/03/19 02/23/19 Rx Fludrocortisone [Florinef] 0.1 mg PO QDAY #30 tablet 02/25/19 03/03/19 Unknown Rx Hydrocortisone [Cortef TAB] 10 mg PO QAM #30 tablet 02/25/19 03/03/19 Unknown Rx Nitrofurantoin [place]/M-Cryst 100 mg PO Q12HR #14 capsule 02/28/19 03/03/19 Unknown Rx [Macrobid CAP] Ondansetron [Zofran ODT TAB] 4 mg PO Q8HR PRN #20 tab.rapdis 02/28/19 03/03/19 Unknown Rx Blood Sugar Diagnostic [Test 1 each MC BID #100 strip 03/06/19 Unknown Rx Strips] Hydrocortisone [Cortef TAB] 5 mg PO QPM #30 tablet 03/06/19 Unknown Rx Insulin Glargine [Lantus VIAL] 10 units SUB-Q BID #60 units 03/06/19 Unknown Rx Syringe and Needle,Insulin,1Ml 1 each MC BID #1 box 03/06/19 Unknown Rx [Insulin Syringe/Needle 1 ML] ED Physical Exam - General Limitations: No Limitations General appearance: alert, in no apparent distress - Head Head exam: Present: atraumatic, normocephalic - Eye Eye exam: Present: normal appearance, PERRL, EOMI - ENT ENT exam: Present: mucous membranes moist - Neck Neck exam: Present: normal inspection - Respiratory Respiratory exam: Present: normal lung sounds bilaterally. Absent: respiratory distress, wheezes, rales - Cardiovascular Cardiovascular Exam: Present: normal rhythm, bradycardia. Absent: systolic murmur, diastolic murmur, rubs, gallop - GI/Abdominal GI/Abdominal exam: Present: soft, normal bowel sounds. Absent: distended, tenderness - Extremities Exam Extremities exam: Present: normal inspection - Back Exam Back exam: Present: normal inspection - Neurological Exam Neurological exam: Present: alert, oriented X3, CN II-XII intact. Absent: motor sensory deficit - Psychiatric Psychiatric exam: Present: normal affect, normal mood - Skin Skin exam: Present: warm, dry, intact, normal color. Absent: rash ED Course Vital Signs 03/09/19 10:20 Temperature 97.9 F Pulse Rate 59 L Respiratory 16 Rate Blood Pressure 114/78 O2 Sat by Pulse 100 Oximetry ED Medical Decision Making - Lab Data Lab Results 03/09/19 03/09/19 Range/Units 10:50 13:40 POC Glucose 125 H 366 H (70-105) - Medical Decision Making The patient received IV dextrose and glucagon with improvement of her hypoglycemia Critical care attestation.: If time is entered above; I have spent that time in minutes in the direct care of this critically ill patient, excluding procedure time. ED Disposition Clinical Impression: Hypoglycemia Disposition: DC-01 TO HOME OR SELFCARE Is pt being admited?: No Does the pt Need Aspirin: No Condition: Stable Instructions: Non-diabetic Hypoglycemia (ED) Additional Instructions: return if worse Referrals: PRIMARY CARE, [Referring] - 3-5 Days [facility] [Provider Group] - 3-5 Days [facility] [Provider Group] - 3-5 Days Time of Disposition: 14:44
[2019-03-09] MEDS ORDERED: ZOFRAN ONE (12:01)
[2019-03-09] MEDS ORDERED: ZOFRAN IV ONE (12:14)
[2019-03-09] MEDS ORDERED: FLUSH HEPARIN IV ONE (15:03)
[2019-03-09 15:17] VITALS: BP 138/89
== END 2019-03-09 15:31 | disposition home or self-care (01) ==
LOC: ED 10:12
DX: E10.649 Type 1 diabetes mellitus with hypoglycemia without coma (principal); E10.22 Type 1 diabetes mellitus with diabetic chronic kidney disease; I95.9 Hypotension, unspecified; F32.9 Major depressive disorder, single episode, unspecified; E03.9 Hypothyroidism, unspecified; Z88.0 Allergy status to penicillin; Z88.1 Allergy status to other antibiotic agents; Z79.899 Other long term (current) drug therapy; Z79.4 Long term (current) use of insulin; Z88.5 Allergy status to narcotic agent; Z90.49 Acquired absence of other specified parts of digestive tract
CPT/HCPCS: 82962; 96374; 96375; 99284; J1610; J1642; J2405

== ENCOUNTER 2019-03-11 08:55 | Emergency (ER) | payer MEDICAID ==
[2019-03-11] MEDS ORDERED: HumuLIN R IV ONE (09:58)
[2019-03-11] MEDS ORDERED: NACL 0.9% 1000 ML 1,000 ML IV ONE (09:58)
[2019-03-11 10:44] LABS: Basophils # (Auto) 0.1 K/mm3 (0.0-0.1); Basophils % (Auto) 1.3 % (0.0-1.8); Eosinophils # (Auto) 0.1 K/mm3 (0.0-0.4); Eosinophils % (Auto) 1.1 % (0.0-4.3); Hematocrit 28.7 % (30.3-42.9); Hemoglobin 9.6 gm/dl (10.1-14.3); Lymphocytes # (Auto) 2.8 K/mm3 (1.2-5.4); Lymphocytes % (Auto) 30.4 % (13.4-35.0); Mean Corpuscular HGB Conc 33 % (30-34); Mean Corpuscular Volume 85 fl (79-97); Monocytes # (Auto) 0.3 K/mm3 (0.0-0.8); Monocytes % (Auto) 3.7 % (0.0-7.3); Platelet Count 335 K/mm3 (140-440); Red Blood Count 3.39 M/mm3 (3.65-5.03); Red Cell Distribution Width 16.8 % (13.2-15.2)
[2019-03-11] MEDS ORDERED: CORTEF PO SCH ×2 (11:12→18:00)
[2019-03-11 11:16] LABS: Calcium 9.6 mg/dL (8.4-10.2)
[2019-03-11 11:21] LABS: Bacteria,Urine 1+ /HPF (Negative); Bilirubin,Urine NEG (Negative); Blood,Urine NEG (Negative); Color,Urine Straw (Yellow); Mucus,Urine FEW /HPF; Protein,Urine <15 mg/dL mg/dL (Negative); Urobilinogen,Urine < 2.0 mg/dL (<2.0)
[2019-03-11 11:22] LABS: Amphetamine Screen,Urine PRESUMPTIVE NEGATIVE; Benzodiazepines Screen,Urine PRESUMPTIVE NEGATIVE; Cannabinoid Screen,Urine PRESUMPTIVE NEGATIVE; Cocaine Screen,Urine PRESUMPTIVE NEGATIVE; Methadone Screen,Urine PRESUMPTIVE NEGATIVE; Opiate Screen,Urine PRESUMPTIVE NEGATIVE
--- NOTE | 2019-03-11 11:24 | Emergency Department Report ---
ED Psych HPI - General Chief Complaint: Psych Stated Complaint: SI Time Seen by Provider: 03/11/19 09:33 Source: patient Mode of arrival: Ambulatory Limitations: No Limitations - History of Present Illness Initial Comments: 28-year-old female with insulin-dependent diabetes, renal insufficiency, seizures, hypothyroidism, [place]'s disease, depression, and celiac disease presents to the hospital with complaints of suicidal ideation 1 week. Patient's plan is to stop taking all her meds. She is however compliant with last dose this a.m. She lives in a detention for the last 6 months. She does not like the lady that was to detention. She does have family support and Kelley. No physical complaints reported. - Related Data Previous Rx's Medication Instructions Recorded Last Taken Type Levothyroxine [Synthroid] 125 mcg PO DAILY #30 tablet 02/17/19 02/23/19 Rx Lispro Insulin [HumaLOG] 0 unit SUB-Q ACHS units 02/17/19 02/23/19 Rx Sertraline [Zoloft] 25 mg PO QDAY #30 tablet 02/17/19 02/23/19 Rx levETIRAcetam [Keppra TAB] 500 mg PO BID #60 tablet 02/17/19 02/23/19 Rx Fludrocortisone [Florinef] 0.1 mg PO QDAY #30 tablet 02/25/19 Unknown Rx Hydrocortisone [Cortef TAB] 10 mg PO QAM #30 tablet 02/25/19 Unknown Rx Nitrofurantoin [place]/M-Cryst 100 mg PO Q12HR #14 capsule 02/28/19 Unknown Rx [Macrobid CAP] Ondansetron [Zofran ODT TAB] 4 mg PO Q8HR PRN #20 tab.rapdis 02/28/19 Unknown Rx Blood Sugar Diagnostic [Test 1 each MC BID #100 strip 03/06/19 Unknown Rx Strips] Hydrocortisone [Cortef TAB] 5 mg PO QPM #30 tablet 03/06/19 Unknown Rx Insulin Glargine [Lantus VIAL] 10 units SUB-Q BID #60 units 03/06/19 Unknown Rx Syringe and Needle,Insulin,1Ml 1 each MC BID #1 box 03/06/19 Unknown Rx [Insulin Syringe/Needle 1 ML] Allergies Allergy/AdvReac Type Severity Reaction Status Date / Time Penicillins Allergy Angioedema Verified 12/31/18 16:01 vortioxetine Allergy Unknown Verified 12/31/18 16:01 [From Trintellix] ziprasidone [From Geodon] Allergy Angioedema Verified 12/31/18 16:01 vancomycin AdvReac Itching Verified 12/31/18 16:01 ED Review of Systems ROS: Stated complaint: SI Other details as noted in HPI Comment: All other systems reviewed and negative ED Past Medical Hx - Past Medical History Hx Congestive Heart Failure: No Hx Diabetes: Yes (Type 1) Hx Renal Disease: Yes (stage 2) Hx Seizures: Yes Hx Asthma: No Hx COPD: No Additional medical history: hypotension, hypothyroidism, [place]'s disease, Depression, Celiac - Surgical History Hx Cholecystectomy: Yes Hx Appendectomy: Yes Additional Surgical History: 4. port right chest wall - Social History Smoking Status: Never Smoker Substance Use Type: None - Medications Home Medications: Home Medications Medication Instructions Recorded Confirmed Last Taken Type Levothyroxine [Synthroid] 125 mcg PO DAILY #30 tablet 02/17/19 03/11/19 02/23/19 Rx Lispro Insulin [HumaLOG] 0 unit SUB-Q ACHS units 02/17/19 03/11/19 02/23/19 Rx Sertraline [Zoloft] 25 mg PO QDAY #30 tablet 02/17/19 03/11/19 02/23/19 Rx levETIRAcetam [Keppra TAB] 500 mg PO BID #60 tablet 02/17/19 03/11/19 02/23/19 Rx Fludrocortisone [Florinef] 0.1 mg PO QDAY #30 tablet 02/25/19 03/03/19 Unknown Rx Hydrocortisone [Cortef TAB] 10 mg PO QAM #30 tablet 02/25/19 03/11/19 Unknown Rx Nitrofurantoin [place]/M-Cryst 100 mg PO Q12HR #14 capsule 02/28/19 03/03/19 Unk nown Rx [Macrobid CAP] Ondansetron [Zofran ODT TAB] 4 mg PO Q8HR PRN #20 tab.rapdis 02/28/19 03/03/19 Unknown Rx Blood Sugar Diagnostic [Test 1 each MC BID #100 strip 03/06/19 Unknown Rx Strips] Hydrocortisone [Cortef TAB] 5 mg PO QPM #30 tablet 03/06/19 03/11/19 Unknown Rx Insulin Glargine [Lantus VIAL] 10 units SUB-Q BID #60 units 03/06/19 03/11/19 Unknown Rx Syringe and Needle,Insulin,1Ml 1 each MC BID #1 box 03/06/19 Unknown Rx [Insulin Syringe/Needle 1 ML] ED Physical Exam - General Limitations: No Limitations - Other Other exam information: Gen.: No acute distress Head: Atraumatic Eyes: Normal appearance EENT: Moist mucous membranes Neck: Normal appearance, no posterior midline tenderness, no meningismus Chest: Clear to auscultation bilaterally Cardiovascular: Regular rate and rhythm Abdomen: Normal appearance, soft, nontender, no rebound or guarding, normal bowel sounds Back: Normal appearance, nontender Extremity: Full range of motion, normal appearance Neuro: Alert, clear speech, no focal motor or sensory deficit Psychiatric: Suicidal, cooperative Skin: No rash ED Course Vital Signs 03/11/19 03/11/19 03/11/19 09:44 09:47 12:07 Temperature 98.5 F 98.5 F 98.4 F Pulse Rate 81 81 84 Respiratory 18 18 18 Rate Blood Pressure 92/62 Blood Pressure 92/63 92/63 109/76 [Right] O2 Sat by Pulse 100 100 99 Oximetry 03/11/19 03/11/19 03/11/19 13:00 20:00 21:00 Temperature 98.9 F 98.1 F Pulse Rate 85 84 Respiratory 18 18 18 Rate Blood Pressure Blood Pressure 112/79 108/79 [Right] O2 Sat by Pulse 97 100 100 Oximetry 03/12/19 03/12/19 03/12/19 02:45 02:46 03:00 Temperature Pulse Rate Respiratory 18 Rate Blood Pressure 112/80 114/80 Blood Pressure [Right] O2 Sat by Pulse 100 100 Oximetry 03/12/19 03/12/19 03/12/19 03:15 03:30 03:46 Temperature Pulse Rate Respiratory Rate Blood Pressure 115/80 106/78 106/78 Blood Pressure [Right] O2 Sat by Pulse 100 100 100 Oximetry 03/12/19 03/12/19 03/12/19 04:00 04:16 04:30 Temperature Pulse Rate Respiratory Rate Blood Pressure 106/78 118/85 118/85 Blood Pressure [Right] O2 Sat by Pulse 100 100 100 Oximetry 03/12/19 03/12/1903/12/19 04:46 05:00 05:16 Temperature Pulse Rate Respiratory Rate Blood Pressure 118/85 118/85 137/94 Blood Pressure [Right] O2 Sat by Pulse 100 100 100 Oximetry 03/12/19 03/12/19 05:30 06:46 Temperature Pulse Rate Respiratory Rate Blood Pressure 137/94 137/94 Blood Pressure [Right] O2 Sat by Pulse 100 100 Oximetry - Reevaluation(s) Reevaluation #1: 03/12/19 12:17 Patient hypoglycemic episode overnight responded to IV D50. Patient was assessed by mental health in 1013 was rescinded as per their recommendation. Social work is involved in the case and patient will be discharged. ED Medical Decision Making - Lab Data Result diagrams: 03/11/19 10:14 03/12/19 10:38 Lab Results 03/11/19 03/11/19 03/11/19 Range/Units 10:08 10:14 10:14 WBC 9.3 (4.5-11.0) K/mm3 RBC 3.39 L (3.65-5.03) M/mm3 Hgb 9.6 L (10.1-14.3) gm/dl Hct 28.7 L (30.3-42.9) % MCV 85 (79-97) fl MCH 28 (28-32) pg MCHC 33 (30-34) % RDW 16.8 H (13.2-15.2) % Plt Count 335 (140-440) K/mm3 Lymph % (Auto) 30.4 (13.4-35.0) % [place] % (Auto) 3.7 (0.0-7.3) % Eos % (Auto) 1.1 (0.0-4.3) % Baso % (Auto) 1.3 (0.0-1.8) % Lymph # 2.8 (1.2-5.4) K/mm3 [place] # 0.3 (0.0-0.8) K/mm3 Eos # 0.1 (0.0-0.4) K/mm3 Baso # 0.1 (0.0-0.1) K/mm3 Seg Neutrophils % 63.5 (40.0-70.0) % Seg Neutrophils # 5.9 (1.8-7.7) K/mm3 VBG pH (7.320-7.420) Sodium 138 (137-145) mmol/L Potassium 3.9 (3.6-5.0) mmol/L Chloride 96.3 L (98-107) mmol/L Carbon Dioxide 27 (22-30) mmol/L Anion Gap 19 mmol/L BUN 21 H (7-17) mg/dL Creatinine 1.6 H (0.7-1.2) mg/dL Estimated GFR 38 ml/min BUN/Creatinine Ratio 13 % Glucose 158 H (65-100) mg/dL POC Glucose 169 H (70-105) Calcium 9.6 (8.4-10.2) mg/dL HCG, Qual (Negative) Urine Color (Yellow) Urine Turbidity (Clear) Urine pH (5.0-7.0) Ur Specific [place] (1.003-1.030) Urine Protein (Negative) mg/dL Urine Glucose (UA) (Negative) mg/dL Urine Ketones (Negative) mg/dL Urine Blood (Negative) Urine Nitrite (Negative) Urine Bilirubin (Negative) Urine Urobilinogen (<2.0) mg/dL Ur Leukocyte Esterase (Negative) Urine WBC (Auto) (0.0-6.0) /HPF Urine RBC (Auto) (0.0-6.0) /HPF U Epithel Cells (Auto) (0-13.0) /HPF Urine Bacteria (Auto) (Negative) /HPF Urine Mucus /HPF Salicylates (2.8-20.0) mg/dL Urine Opiates Screen Urine Methadone Screen Acetaminophen (10.0-30.0) ug/mL Ur Barbiturates Screen Ur Phencyclidine Scrn Ur Amphetamines Screen U Benzodiazepines Scrn Urine Cocaine Screen U Marijuana (THC) Screen Drugs of Abuse Note Plasma/Serum Alcohol (0-0.07) % 03/11/19 03/11/19 03/11/19 Range/Units 10:14 10:14 10:14 WBC (4.5-11.0) K/mm3 RBC (3.65-5.03) M/mm3 Hgb (10.1-14.3) gm/dl Hct (30.3-42.9) % MCV (79-97) fl MCH (28-32) pg MCHC (30-34) % RDW (13.2-15.2) % Plt Count (140-440) K/mm3 Lymph % (Auto) (13.4-35.0) % [place] % (Auto) (0.0-7.3) % Eos % (Auto) (0.0-4.3) % Baso % (Auto) (0.0-1.8) % Lymph # (1.2-5.4) K/mm3 [place] # (0.0-0.8) K/mm3 Eos # (0.0-0.4) K/mm3 Baso # (0.0-0.1) K/mm3 Seg Neutrophils % (40.0-70.0) % Seg Neutrophils # (1.8-7.7) K/mm3 VBG pH 7.318 L (7.320-7.420) Sodium (137-145) mmol/L Potassium (3.6-5.0) mmol/L Chloride (98-107) mmol/L Carbon Dioxide (22-30) mmol/L Anion Gap mmol/L BUN (7-17) mg/dL Creatinine (0.7-1.2) mg/dL Estimated GFR ml/min BUN/Creatinine Ratio % Glucose (65-100) mg/dL POC Glucose (70-105) Calcium (8.4-10.2) mg/dL HCG, Qual (Negative) Urine Color (Yellow) Urine Turbidity (Clear) Urine pH (5.0-7.0) Ur Specific [place] (1.003-1.030) Urine Protein (Negative) mg/dL Urine Glucose (UA) (Negative) mg/dL Urine Ketones (Negative) mg/dL Urine Blood (Negative) Urine Nitrite (Negative) Urine Bilirubin (Negative) Urine Urobilinogen (<2.0) mg/dL Ur Leukocyte Esterase (Negative) Urine WBC (Auto) (0.0-6.0) /HPF Urine RBC (Auto) (0.0-6.0) /HPF U Epithel Cells (Auto) (0-13.0) /HPF Urine Bacteria (Auto) (Negative) /HPF Urine Mucus /HPF Salicylates < 0.3 L (2.8-20.0) mg/dL Urine Opiates Screen Urine Methadone Screen Acetaminophen < 5.0 L (10.0-30.0) ug/mL Ur Barbiturates Screen Ur Phencyclidine Scrn Ur Amphetamines Screen U Benzodiazepines Scrn Urine Cocaine Screen U Marijuana (THC) Screen Drugs of Abuse Note Plasma/Serum Alcohol (0-0.07) % 03/11/19 03/11/19 03/11/19 Range/Units 10:14 10:14 10:41 WBC (4.5-11.0) K/mm3 RBC (3.65-5.03) M/mm3 Hgb (10.1-14.3) gm/dl Hct (30.3-42.9) % MCV (79-97) fl MCH (28-32) pg MCHC (30-34) % RDW (13.2-15.2) % Plt Count (140-440) K/mm3 Lymph % (Auto) (13.4-35.0) % [place] % (Auto) (0.0-7.3) % Eos % (Auto) (0.0-4.3) % Baso % (Auto) (0.0-1.8) % Lymph # (1.2-5.4) K/mm3 [place] # (0.0-0.8) K/mm3 Eos # (0.0-0.4) K/mm3 Baso # (0.0-0.1) K/mm3 Seg Neutrophils % (40.0-70.0) % Seg Neutrophils # (1.8-7.7) K/mm3 VBG pH (7.320-7.420) Sodium (137-145) mmol/L Potassium (3.6-5.0) mmol/L Chloride (98-107) mmol/L Carbon Dioxide (22-30) mmol/L Anion Gap mmol/L BUN (7-17) mg/dL Creatinine (0.7-1.2) mg/dL Estimated GFR ml/min BUN/Creatinine Ratio % Glucose (65-100) mg/dL POC Glucose (70-105) Calcium (8.4-10.2) mg/dL HCG, Qual Negative (Negative) Urine Color (Yellow) Urine Turbidity (Clear) Urine pH (5.0-7.0) Ur Specific [place] (1.003-1.030) Urine Protein (Negative) mg/dL Urine Glucose (UA) (Negative) mg/dL Urine Ketones (Negative) mg/dL Urine Blood (Negative) Urine Nitrite (Negative) Urine Bilirubin (Negative) Urine Urobilinogen (<2.0) mg/dL Ur Leukocyte Esterase (Negative) Urine WBC (Auto) (0.0-6.0) /HPF Urine RBC (Auto) (0.0-6.0) /HPF U Epithel Cells (Auto) (0-13.0) /HPF Urine Bacteria (Auto) (Negative) /HPF Urine Mucus /HPF Salicylates (2.8-20.0) mg/dL Urine Opiates Screen Presumptive negative Urine Methadone Screen Presumptive negative Acetaminophen (10.0-30.0) ug/mL Ur Barbiturates Screen Presumptive negative Ur Phencyclidine Scrn Presumptive negative Ur Amphetamines Screen Presumptive negative U Benzodiazepines Scrn Presumptive negative Urine Cocaine Screen Presumptive negative U Marijuana (THC) Screen Presumptive negative Drugs of Abuse Note Disclamer Plasma/Serum Alcohol < 0.01 (0-0.07) % 03/11/19 Range/Units 10:53 WBC (4.5-11.0) K/mm3 RBC (3.65-5.03) M/mm3 Hgb (10.1-14.3) gm/dl Hct (30.3-42.9) % MCV (79-97) fl MCH (28-32) pg MCHC (30-34) % RDW (13.2-15.2) % Plt Count (140-440) K/mm3 Lymph % (Auto) (13.4-35.0) % [place] % (Auto) (0.0-7.3) % Eos % (Auto) (0.0-4.3) % Baso % (Auto) (0.0-1.8) % Lymph # (1.2-5.4) K/mm3 [place] # (0.0-0.8) K/mm3 Eos # (0.0-0.4) K/mm3 Baso # (0.0-0.1) K/mm3 Seg Neutrophils % (40.0-70.0) % Seg Neutrophils # (1.8-7.7) K/mm3 VBG pH (7.320-7.420) Sodium (137-145) mmol/L Potassium (3.6-5.0) mmol/L Chloride (98-107) mmol/L Carbon Dioxide (22-30) mmol/L Anion Gap mmol/L BUN (7-17) mg/dL Creatinine (0.7-1.2) mg/dL Estimated GFR ml/min BUN/Creatinine Ratio % Glucose (65-100) mg/dL POC Glucose (70-105) Calcium (8.4-10.2) mg/dL HCG, Qual (Negative) Urine Color Straw (Yellow) Urine Turbidity Clear (Clear) Urine pH 6.0 (5.0-7.0) Ur Specific [place] 1.013 (1.003-1.030) Urine Protein <15 mg/dl (Negative) mg/dL Urine Glucose (UA) >=500 (Negative) mg/dL Urine Ketones Neg (Negative) mg/dL Urine Blood Neg (Negative) Urine Nitrite Neg (Negative) Urine Bilirubin Neg (Negative) Urine Urobilinogen < 2.0 (<2.0) mg/dL Ur Leukocyte Esterase Tr (Negative) Urine WBC (Auto) 3.0 (0.0-6.0) /HPF Urine RBC (Auto) 1.0 (0.0-6.0) /HPF U Epithel Cells (Auto) < 1.0 (0-13.0) /HPF Urine Bacteria (Auto) 1+ (Negative) /HPF Urine Mucus Few /HPF Salicylates (2.8-20.0) mg/dL Urine Opiates Screen Urine Methadone Screen Acetaminophen (10.0-30.0) ug/mL Ur Barbiturates Screen Ur Phencyclidine Scrn Ur Amphetamines Screen U Benzodiazepines Scrn Urine Cocaine Screen U Marijuana (THC) Screen Drugs of Abuse Note Plasma/Serum Alcohol (0-0.07) % - Medical Decision Making Pt in the ED for suicidal ideation with plan. No physical complaints. Medically cleared for psychiatric admission. Current medications will be continued. - Differential Diagnosis suicidal, depression Critical Care Time: No Critical care attestation.: If time is entered above; I have spent that time in minutes in the direct care of this critically ill patient, excluding procedure time. ED Disposition Clinical Impression: Suicidal ideation, Depression, CRI (chronic renal insufficiency), Insulin dependent diabetes mellitus, [place]'s disease, Seizure disorder, Hypothyroid Disposition: DC-01 TO HOME OR SELFCARE Is pt being admited?: No Condition: Stable Instructions: Diabetes Mellitus Type 1 in Adults (ED), [place] Disease (ED), Suicide Prevention for Adults (ED) Additional Instructions: Take your medication as prescribed. Follow-up with your doctor or with the doctor/clinic provided. Return if symptoms worsen as indicated by your discharge instructions. Referrals: PRIMARY CARE, [Primary Care Provider] - 3-5 Days [facility] [Provider Group] - 3-5 Days [facility] [Outside] - 3-5 Days Time of Disposition: 12:20 (d/c home 1013 rescinded by mental health)
[2019-03-11] MEDS ORDERED: SYNTHROID PO SCH (12:00)
[2019-03-11] MEDS ORDERED: FLORINEF PO SCH (12:00)
[2019-03-11] MEDS ORDERED: KEPPRA PO SCH (12:00)
[2019-03-11] MEDS: HumaLOG SUB-Q SCH ×3 (17:00→23:00)
[2019-03-11] MEDS ORDERED: HumaLOG SUB-Q ONE (20:51)
[2019-03-11] MEDS: KEPPRA PO SCH (23:00)
[2019-03-11] MEDS: LANTUS SUB-Q SCH (23:00)
[2019-03-12] MEDS ORDERED: D50W (25GM) Syringe IV ONE ×2 (01:45)
[2019-03-12] MEDS ORDERED: D10W 1,000 ML IV SCH (02:00)
[2019-03-12] MEDS ORDERED: TYLENOL PO ONE (02:40)
[2019-03-12] MEDS ORDERED: TYLENOL ONE ×2 (02:40→02:41)
[2019-03-12] MEDS: HumaLOG SUB-Q SCH ×2 (08:06→12:41)
[2019-03-12] MEDS ORDERED: ZOLOFT PO SCH (10:00)
[2019-03-12] MEDS ORDERED: KEPPRA PO SCH (10:00)
[2019-03-12] MEDS ORDERED: FLORINEF PO SCH (10:00)
[2019-03-12] MEDS ORDERED: CORTEF PO SCH (10:00)
[2019-03-12] MEDS ORDERED: SYNTHROID PO SCH (10:00)
[2019-03-12] MEDS: KEPPRA PO SCH (10:20)
[2019-03-12 11:08] LABS: Calcium 8.8 mg/dL (8.4-10.2)
[2019-03-12] MEDS: LANTUS SUB-Q SCH (11:44)
[2019-03-12] MEDS ORDERED: FLUSH HEPARIN IV ONE ×2 (12:28)
[2019-03-12 12:39] VITALS: BP 108/78
--- NOTE | 2019-03-12 12:48 | Consultation ---
History of Present Illness - Reason for Consult Consult date: 03/12/19 Reason for consult: Mental Health Evaluation Requesting physician: MIGUEL HERNANDEZ - Chief Complaint Chief complaint: "I am okay" - History of Present Psychiatric Illness 28 y.o. white female who presented to the ER for SI's. Today the patient was calm and cooperative during the assessment. She stated that she have no idea why she was "suicidal" without a plan yesterday other than saying that her "sugar was high." She stated that she experienced a mood swing in the past reference hyperglycemia. She stated that she feel better today "mentally." She stated that she plan to continue her medication home regimen and Zoloft for depression. She stated that she is seen by [facility] for outpatient psy services. She denies SI/HI's and AVH's. She denies erratic sleep and a poor appetite. She denies recreational drug use and alcohol consumption (etoh). Medications and Allergies Allergies Allergy/AdvReac Type Severity Reaction Status Date / Time Penicillins Allergy Angioedema Verified 12/31/18 16:01 vortioxetine Allergy Unknown Verified 12/31/18 16:01 [From Trintellix] ziprasidone [From Geodon] Allergy Angioedema Verified 12/31/18 16:01 vancomycin AdvReac Itching Verified 12/31/18 16:01 Home Medications Medication Instructions Recorded Confirmed Last Taken Type Levothyroxine [Synthroid] 125 mcg PO DAILY #30 tablet 02/17/19 03/11/19 02/23/19 Rx Lispro Insulin [HumaLOG] 0 unit SUB-Q ACHS units 02/17/19 03/11/19 02/23/19 Rx Sertraline [Zoloft] 25 mg PO QDAY #30 tablet 02/17/19 03/11/19 02/23/19 Rx levETIRAcetam [Keppra TAB] 500 mg PO BID #60 tablet 02/17/19 03/11/19 02/23/19 Rx Fludrocortisone [Florinef] 0.1 mg PO QDAY #30 tablet 02/25/19 03/03/19 Unknown Rx Hydrocortisone [Cortef TAB] 10 mg PO QAM #30 tablet 02/25/19 03/11/19 Unknown Rx Nitrofurantoin [place]/M-Cryst 100 mg PO Q12HR #14 capsule 02/28/19 03/03/19 Unknown Rx [Macrobid CAP] Ondansetron [Zofran ODT TAB] 4 mg PO Q8HR PRN #20 tab.rapdis 02/28/19 03/03/19 Unknown Rx Blood Sugar Diagnostic [Test 1 each MC BID #100 strip 03/06/19 Unknown Rx Strips] Hydrocortisone [Cortef TAB] 5 mg PO QPM #30 tablet 03/06/19 03/11/19 Unknown Rx Insulin Glargine [Lantus VIAL] 10 units SUB-Q BID #60 units 03/06/19 03/11/19 Unknown Rx Syringe and Needle,Insulin,1Ml 1 each MC BID #1 box 03/06/19 Unknown Rx [Insulin Syringe/Needle 1 ML] Past psychiatric history - Past Medical History Past Medical History: seizures, other (Reseda's Disease) Past Surgical History: No surgical history - past Psychiatric treatment and history psychiatric treatment history: Hx of depression. Denies a fam psy hx. - Social History Social history: lives with family Mental Status Exam - Vital signs Last Vital Signs Temp 98.1 F 03/11/19 20:00 Pulse 66 03/12/19 12:38 Resp 16 03/12/19 12:38 BP 108/78 03/12/19 12:38 Pulse Ox 100 03/12/19 12:38 - Exam Narrative exam: MSE: Appearance: calm, cooperative Behavior: regular eye contact Speech: regular rate and tone Mood: "okay" Affect: congruent to mood Thought Process: linear Thought Content: denies SI/HI's and AVH's Motor Activity: lying in bed Cognition: A/O x3 Insight: appropriate Judgment: appropriate Results Result Diagrams: 03/11/19 10:14 03/12/19 10:38 Abnormal lab results 03/11/19 03/11/19 03/11/19 Range/Units 11:22 18:04 19:35 Chloride (98-107) mmol/L BUN (7-17) mg/dL Glucose (65-100) mg/dL POC Glucose 123 H 460 H 476 H (70-105) 03/11/19 03/12/19 03/12/19 Range/Units 21:29 01:51 02:09 Chloride (98-107) mmol/L BUN (7-17) mg/dL Glucose (65-100) mg/dL POC Glucose 292 H < 40 L 182 H (70-105) 03/12/19 03/12/19 03/12/19 Range/Units 02:44 03:24 03:55 Chloride (98-107) mmol/L BUN (7-17) mg/dL Glucose (65-100) mg/dL POC Glucose 122 H 125 H 116 H (70-105) 03/12/19 03/12/19 03/12/19 Range/Units 06:43 08:02 10:38 Chloride 97.0 L (98-107) mmol/L BUN 24 H (7-17) mg/dL Glucose 158 H (65-100) mg/dL POC Glucose 237 H 241 H (70-105) All other labs normal. Assessment and Plan Assessment and plan: Impression: Hx of Depression. Today the patient was calm and cooperative during the assessment. The patient is no threat to self. Recommendation/Plan: Rescind 1013. Continue Zoloft 25 mg PO daily for depression. Discussed possible suicidality/medication induced luiz with the patient, she verbalized understanding. Dispo: The patient can follow up with [facility] for outpatient psy services. Will staff with Dr Cheyenne Santos.
== END 2019-03-12 12:40 | disposition home or self-care (01) ==
LOC: EEVIPCON 08:55 → ED 08:55
DX: E10.649 Type 1 diabetes mellitus with hypoglycemia without coma (principal); F32.9 Major depressive disorder, single episode, unspecified; G40.909 Epilepsy, unspecified, not intractable, without status epilepticus; E03.9 Hypothyroidism, unspecified; E10.22 Type 1 diabetes mellitus with diabetic chronic kidney disease; N18.2 Chronic kidney disease, stage 2 (mild); I95.9 Hypotension, unspecified; Z90.49 Acquired absence of other specified parts of digestive tract; Z79.4 Long term (current) use of insulin; Z79.899 Other long term (current) drug therapy; Z88.0 Allergy status to penicillin; Z88.1 Allergy status to other antibiotic agents; Z88.8 Allergy status to other drugs, medicaments and biological substances
CPT/HCPCS: 36415; 80048; 80307; 81001; 82805; 82962; 84703; 85025; 96365; 96366; 96372; 96376; 99284; J1642; 80320; 96375; G0480; J1815

== ENCOUNTER 2019-03-27 17:29 | Inpatient (IN) | payer MEDICAID ==
[2019-03-27] MEDS ORDERED: ONDANSETRON 4 MG/2 ML INJ ONE (18:02)
[2019-03-27] MEDS ORDERED: SODIUM CHLORIDE 0.9% 1000 ML 2,000 ML ONE (18:02)
[2019-03-27] MEDS ORDERED: SODIUM CHLORIDE 0.9% 1000 ML 1,000 ML IV ONE ×2 (18:12→18:37)
[2019-03-27] MEDS ORDERED: ONDANSETRON 4 MG/2 ML INJ IV ONE (18:12)
--- NOTE | 2019-03-27 18:42 | Emergency Department Report ---
ED General Adult HPI - General Chief complaint: Dizziness Stated complaint: DIZZINESS Time Seen by Provider: 03/27/19 18:35 Source: patient, EMS ( EMS documentation not available at time of chart dictation ), RN notes reviewed, old records reviewed Mode of arrival: Stretcher Limitations: Physical Limitation - History of Present Illness Initial comments: This is a 28-year-old female. I am very familiar with this patient. She typically lives at [facility]. Her past medical history includes reported noncompliance, insulin-dependent diabetes, labile blood sugars, Dante's disease, chronic hypothyroidism, chronic hypotension, seizure disorder, chronic disease. Patient presents to the ER today with EMS for complaint of painless weakness, malaise, nausea, hypotension. She endorses compliance with her medications. She denies new or different physical pain. She denies urinary symptoms. She denies bright red blood per rectum. Symptoms at this point time are constant, decreased with rest, and worse with physical exertion. This is similar to prior presentations for this patient. -: Gradual, hour(s) Consistency: constant Improves with: rest Worsens with: movement - Related Data Previous Rx's Medication Instructions Recorded Last Taken Type Levothyroxine [Synthroid] 125 mcg PO DAILY #30 tablet 02/17/19 02/23/19 Rx Lispro Insulin [HumaLOG] 0 unit SUB-Q ACHS units 02/17/19 02/23/19 Rx Sertraline [Zoloft] 25 mg PO QDAY #30 tablet 02/17/19 02/23/19 Rx levETIRAcetam [Keppra TAB] 500 mg PO BID #60 tablet 02/17/19 02/23/19 Rx Fludrocortisone [Florinef] 0.1 mg PO QDAY #30 tablet 02/25/19 Unknown Rx Hydrocortisone [Cortef TAB] 10 mg PO QAM #30 tablet 02/25/19 Unknown Rx Nitrofurantoin [place]/M-Cryst 100 mg PO Q12HR #14 capsule 02/28/19 Unknown Rx [Macrobid CAP] Ondansetron [Zofran ODT TAB] 4 mg PO Q8HR PRN #20 tab.rapdis 02/28/19 Unknown Rx Blood Sugar Diagnostic [Test 1 each MC BID #100 strip 03/06/19 Unknown Rx Strips] Hydrocortisone [Cortef TAB] 5 mg PO QPM #30 tablet 03/06/19 Unknown Rx Insulin Glargine [Lantus VIAL] 10 units SUB-Q BID #60 units 03/06/19 Unknown Rx Syringe and Needle,Insulin,1Ml 1 each MC BID #1 box 03/06/19 Unknown Rx [Insulin Syringe/Needle 1 ML] Allergies Allergy/AdvReac Type Severity Reaction Status Date / Time Penicillins Allergy Angioedema Verified 12/31/18 16:01 vortioxetine Allergy Unknown Verified 12/31/18 16:01 [From Trintellix] ziprasidone [From Geodon] Allergy Angioedema Verified 12/31/18 16:01 vancomycin AdvReac Itching Verified 12/31/18 16:01 ED Review of Systems ROS: Stated complaint: DIZZINESS Other details as noted in HPI Constitutional: fever, malaise. denies: weakness Eyes: denies: eye discharge ENT: denies: epistaxis Respiratory: denies: wheezing Cardiovascular: denies: syncope Gastrointestinal: nausea Genitourinary: denies: dysuria Musculoskeletal: myalgia Neurological: weakness ED Past Medical Hx - Past Medical History Previous Medical History?: Yes Hx Congestive Heart Failure: No Hx Diabetes: Yes (Type 1) Hx Renal Disease: Yes (stage 2) Hx Seizures: Yes Hx Asthma: No Hx COPD: No Additional medical history: hypotension, hypothyroidism, Mecklenburg's disease, Depression, Celiac - Surgical History Past Surgical History?: Yes Hx Cholecystectomy: Yes Hx Appendectomy: Yes Additional Surgical History: 4. port right chest wall - Social History Smoking Status: Never Smoker Substance Use Type: None - Medications Home Medications: Home Medications Medication Instructions Recorded Confirmed Last Taken Type Levothyroxine [Synthroid] 125 mcg PO DAILY #30 tablet 02/17/19 03/11/19 02/23/19 Rx Lispro Insulin [HumaLOG] 0 unit SUB-Q ACHS units 02/17/19 03/11/19 02/23/19 Rx Sertraline [Zoloft] 25 mg PO QDAY #30 tablet 02/17/19 03/11/19 02/23/19 Rx levETIRAcetam [Keppra TAB] 500 mg PO BID #60 tablet 02/17/19 03/11/19 02/23/19 Rx Fludrocortisone [Florinef] 0.1 mg PO QDAY #30 tablet 02/25/19 03/03/19 Unknown Rx Hydrocortisone [Cortef TAB] 10 mg PO QAM #30 tablet 02/25/19 03/11/19 Unknown Rx Nitrofurantoin [place]/M-Cryst 100 mg PO Q12HR #14 capsule 02/28/19 03/03/19 Unknown Rx [Macrobid CAP] Ondansetron [Zofran ODT TAB] 4 mg PO Q8HR PRN #20 tab.rapdis 02/28/19 03/03/19 Unknown Rx Blood Sugar Diagnostic [Test 1 each MC BID #100 strip 03/06/19 Unknown Rx Strips] Hydrocortisone [Cortef TAB] 5 mg PO QPM #30 tablet 03/06/19 03/11/19 Unknown Rx Insulin Glargine [Lantus VIAL] 10 units SUB-Q BID #60 units 03/06/19 03/11/19 Unknown Rx Syringe and Needle,Insulin,1Ml 1 each MC BID #1 box 03/06/19 Unknown Rx [Insulin Syringe/Needle 1 ML] ED Physical Exam - General Limitations: No Limitations, Physical Limitation General appearance: alert, anxious - Head Head exam: Present: atraumatic, normocephalic - Eye Eye exam: Present: normal appearance Pupils: Present: normal accommodation - ENT ENT exam: Present: normal orophraynx, normal external ear exam - Neck Neck exam: Present: normal inspection, full ROM. Absent: tenderness, meningismus - Respiratory Respiratory exam: Present: normal lung sounds bilaterally. Absent: respiratory distress - Cardiovascular Cardiovascular Exam: Present: regular rate, normal rhythm, normal heart sounds. Absent: bradycardia, tachycardia, irregular rhythm, systolic murmur, diastolic murmur, rubs, gallop - GI/Abdominal GI/Abdominal exam: Present: soft. Absent: distended, tenderness, guarding, rebound, rigid, pulsatile mass - Extremities Exam Extremities exam: Present: normal inspection, full ROM, other (2+ pulses noted in the bilateral upper, lower extremities. There is no long bone tenderness. Musculoskeletal compartments are soft. The pelvis is stable.). Absent: pedal edema, joint swelling, calf tenderness - Back Exam Back exam: Present: normal inspection, full ROM. Absent: tenderness, CVA tenderness (R), CVA tenderness (L), paraspinal tenderness, vertebral tenderness - Neurological Exam Neurological exam: Present: alert, other (there is no facial droop. The tongue is midline. Extraocular movements are intact bilaterally. Patient speaking in full complete sentences. Shoulder shrug is intact bilaterally. Hearing is grossly intact bilaterally. Visual acuity intact to finger counting and color perception at a close distance. 5/5 strength 4 extremities. Sensation intact to light touch in 4 extremities.) - Psychiatric Psychiatric exam: Present: anxious - Skin Skin exam: Present: warm, dry, intact, normal color. Absent: rash ED Course Vital Signs 03/27/19 03/27/19 17:40 19:34 Temperature 97.3 F L 97.4 F L Pulse Rate 79 73 Respiratory 16 16 Rate Blood Pressure 56/30 Blood Pressure 78/52 [Left] O2 Sat by Pulse 96 100 Oximetry - Reevaluation(s) Reevaluation #1: 03/27/19 19:51 Differential diagnosis, including not limited to, orthostasis, pneumonia, urinary tract infection, dehydration, hyperglycemic state, diabetic ketoacidosis, thyroid derangement Assessment and plan: 28-year-old female with multiple presentations to this hospital emergency room, now with painless malaise, fatigue, nausea and hypotension. We will check basic laboratory studies, EKG, urinalysis, x-ray of the chest, provide IV fluids and supportive control, and reassess. Reevaluation #2: 03/27/19 20:45 Patient found to be hypoglycemic. Every hour Accu-Cheks ordered. Dextrose ordered. IV fluids ordered. Potassium ordered. Hospital services paged to arrange admission for hypotension, hypoglycemia, inpatient monitoring. X-ray of the chest, urinalysis pending Reevaluation #3: 03/27/19 20:51 Patient presentation may be consistent with adrenal crisis. Hydrocortisone ordered. Hospital physician, Dr. Alyx Rausch to admit ED Medical Decision Making - Lab Data Result diagrams: 03/27/19 19:04 03/27/19 19:04 Vital Signs 03/27/19 03/27/19 17:40 19:34 Temperature 97.3 F L 97.4 F L Pulse Rate 79 73 Respiratory 16 16 Rate Blood Pressure 56/30 Blood Pressure 78/52 [Left] O2 Sat by Pulse 96 100 Oximetry Lab Results 03/27/19 03/27/19 03/27/19 Range/Units 19:04 19:04 19:04 WBC 8.5 (4.5-11.0) K/mm3 RBC 3.35 L (3.65-5.03) M/mm3 Hgb 9.0 L (10.1-14.3) gm/dl Hct 27.3 L (30.3-42.9) % MCV 82 (79-97) fl MCH 27 L (28-32) pg MCHC 33 (30-34) % RDW 14.8 (13.2-15.2) % Plt Count 275 (140-440) K/mm3 Lymph % (Auto) 49.2 H (13.4-35.0) % [place] % (Auto) 4.0 (0.0-7.3) % Eos % (Auto) 2.4 (0.0-4.3) % Baso % (Auto) 0.9 (0.0-1.8) % Lymph # 4.2 (1.2-5.4) K/mm3 [place] # 0.3 (0.0-0.8) K/mm3 Eos # 0.2 (0.0-0.4) K/mm3 Baso # 0.1 (0.0-0.1) K/mm3 Seg Neutrophils % 43.5 (40.0-70.0) % Seg Neutrophils # 3.7 (1.8-7.7) K/mm3 PT 13.3 (12.2-14.9) Sec. INR 1.04 (0.87-1.13) APTT 25.0 (24.2-36.6) Sec. HCG, Qual Negative (Negative) - EKG Data -: EKG Interpreted by [place] EKG shows normal: sinus rhythm Rate: normal - EKG Data 03/27/19 19:51 EKG shows a sinus rhythm, 66 bpm, normal axis, QTC is 473 ms, lives, there is poor R-wave progression, the EKG is abnormal, the EKG is unchanged from prior, EKG is not consistent with ST elevation myocardial infarction. - Radiology Data Radiology results: pending, report reviewed, image reviewed [facility] [address] [place] [address] XRay Report Signed Patient: AMAYA PATEL MR#: [id number] : 1990 Acct:[id number] Age/Sex: 28 / F ADM Date: 03/27/19 Loc: ED Attending Dr: Ordering Physician: OLIMPIA ELAINE MD Date of Service: 03/27/19 Procedure(s): XR chest 1V ap Accession Number(s): [id number] cc: OLIMPIA ELAINE MD Fluoro Time In Minutes: CHEST 1 VIEW 9:10 PM INDICATION / CLINICAL INFORMATION: Hypotension and dizziness for one day. COMPARISON: 03/05/2019. FINDINGS: SUPPORT DEVICES: The position of the right subclavian CVL has not changed. HEART / MEDIASTINUM: The heart size and pulmonary vasculature are normal. The aorta is normal in caliber. LUNGS / PLEURA: No significant pulmonary or pleural abnormality. No pneumothorax. ADDITIONAL FINDINGS: No significant additional findings. IMPRESSION: No acute abnormality or significant change. Signer Name: Prem Colon MD Signed: 03/27/2019 9:30 PM Workstation Name: [id number] Transcribed By: RT Dictated By: Prem Colon MD Electronically Authenticated By: Prem Colon MD Signed Date/Time: 03/27/19 485 Critical care attestation.: If time is entered above; I have spent that time in minutes in the direct care of this critically ill patient, excluding procedure time. ED Disposition Clinical Impression: Hypoglycemia, Mecklenburg's disease, Hypotension, Nausea & vomiting, Adrenal crisis syndrome Disposition: OP ADMIT IP TO THIS HOSP Is pt being admited?: Yes Condition: Serious Referrals: PRIMARY CARE, [Primary Care Provider] - 3-5 Days
[2019-03-27 19:28] LABS: Basophils # (Auto) 0.1 K/mm3 (0.0-0.1); Basophils % (Auto) 0.9 % (0.0-1.8); Eosinophils # (Auto) 0.2 K/mm3 (0.0-0.4); Eosinophils % (Auto) 2.4 % (0.0-4.3); Hematocrit 27.3 % (30.3-42.9); Lymphocytes # (Auto) 4.2 K/mm3 (1.2-5.4); Lymphocytes % (Auto) 49.2 % (13.4-35.0); Mean Corpuscular HGB Conc 33 % (30-34); Mean Corpuscular Volume 82 fl (79-97); Monocytes # (Auto) 0.3 K/mm3 (0.0-0.8); Platelet Count 275 K/mm3 (140-440); Red Blood Count 3.35 M/mm3 (3.65-5.03); Red Cell Distribution Width 14.8 % (13.2-15.2)
[2019-03-27 19:39] LABS: INR 1.04 (0.87-1.13)
[2019-03-27] MEDS ORDERED: SODIUM CHLORIDE 0.9% 500 ML 500 ML ONE (20:16)
[2019-03-27] MEDS ORDERED: METOCLOPRAMIDE 10 MG/2 ML INJ ONE (20:16)
[2019-03-27] MEDS ORDERED: SODIUM CHLORIDE 0.9% 500 ML 500 ML IV ONE ×2 (20:17→21:41)
[2019-03-27] MEDS ORDERED: METOCLOPRAMIDE 10 MG/2 ML INJ IV ONE (20:17)
[2019-03-27 20:29] LABS: Calcium 8.2 mg/dL (8.4-10.2)
[2019-03-27] MEDS ORDERED: POTASSIUM CHLORIDE ER 20 MEQ TAB PO ONE (20:35)
[2019-03-27] MEDS ORDERED: DEXTROSE 50% IN WATER (25GM) 50 ML SYRINGE IV ONE ×2 (20:44→20:48)
[2019-03-27] MEDS ORDERED: DEXTROSE 50% IN WATER (25GM) 50 ML SYRINGE IV PRN ×2 (20:44→22:04)
[2019-03-27] MEDS ORDERED: HYDROCORTISONE SOD SUCC 100 MG/2 ML VIAL IV ONE (20:51)
[2019-03-27] MEDS ORDERED: DEXTROSE 10% IN WATER 1,000 ML IV SCH (21:00)
[2019-03-27] MEDS: POTASSIUM CHLORIDE 10 MEQ 10 MEQ/100 ML BAG IV SCH ×3 (21:06→23:25)
--- NOTE | 2019-03-27 21:35 | XRay Report ---
CHEST 1 VIEW 9:10 PM INDICATION / CLINICAL INFORMATION: Hypotension and dizziness for one day. COMPARISON: 03/05/2019. FINDINGS: SUPPORT DEVICES: The position of the right subclavian CVL has not changed. HEART / MEDIASTINUM: The heart size and pulmonary vasculature are normal. The aorta is normal in jarek brigido. LUNGS / PLEURA: No significant pulmonary or pleural abnormality. No pneumothorax. ADDITIONAL FINDINGS: No significant additional findings. IMPRESSION: No acute abnormality or significant change. Signer Name: Prem Colon MD Signed: 03/27/2019 9:30 PM Workstation Name: [id number]
[2019-03-27 22:39] LABS: HCG Qualitative,Urine Negative (Negative)
[2019-03-27 22:46] LABS: Bacteria,Urine 1+ /HPF (Negative); Bilirubin,Urine NEG (Negative); Blood,Urine NEG (Negative); Color,Urine Yellow (Yellow); Mucus,Urine FEW /HPF; Protein,Urine <15 mg/dL mg/dL (Negative); Urobilinogen,Urine < 2.0 mg/dL (<2.0)
[2019-03-27] MEDS ORDERED: NITROFURANTOIN MONOHYD/M-CRYST 100 MG CAP PO ONE (22:48)
[2019-03-27] MEDS ORDERED: POTASSIUM CHLORIDE 10 MEQ 10 MEQ/100 ML BAG IV ONE (23:13)
[2019-03-27] MEDS ORDERED: NITROFURANTOIN MONOHYD/M-CRYST 100 MG CAP ONE (23:13)
[2019-03-27] MEDS ORDERED: SODIUM CHLORIDE 0.9% 1000 ML 1,000 ML ONE (23:14)
[2019-03-27] MEDS: INSULIN REGULAR, HUMAN 100 UNITS/1 ML SUB-Q SCH (23:19)
[2019-03-27] MEDS: SODIUM CHLORIDE 0.9% 1000 ML 1,000 ML IV SCH (23:21)
[2019-03-28 00:40] LABS: Creatine Kinase MB < 1.0 ng/mL (0.0-4.0)
[2019-03-28] MEDS: POTASSIUM CHLORIDE 10 MEQ 10 MEQ/100 ML BAG IV SCH (01:10)
[2019-03-28] MEDS: INSULIN REGULAR, HUMAN 100 UNITS/1 ML SUB-Q SCH ×6 (01:31→22:48)
[2019-03-28] MEDS: SODIUM CHLORIDE 0.9% 1000 ML 1,000 ML IV SCH ×2 (05:33→14:03)
[2019-03-28] MEDS ORDERED: ACETAMINOPHEN 325 MG TAB PO PRN (06:01)
[2019-03-28] MEDS ORDERED: ONDANSETRON 4 MG/2 ML INJ IV PRN (06:03)
--- NOTE | 2019-03-28 06:48 | History and Physical Report ---
CHIEF COMPLAINT: Dizziness. Other complaint includes weakness. HISTORY OF PRESENT ILLNESS: The patient is a 28-year-old female who presented to the Emergency Room with complaint of weakness and dizziness. There was no history of chest pain, no history of nausea or vomiting and no history of diarrhea. The patient also denied history of fever, chest pain or shortness of breath. The patient has had similar symptoms in the past. PAST MEDICAL HISTORY: Pertinent for diabetes mellitus, chronic kidney disease, seizure disorder, hypotension, hypothyroidism, Dell's disease, depression, celiac disease. PAST SURGICAL HISTORY: Pertinent for cholecystectomy, appendectomy, x 4, Port-A-Cath in the right chest wall. FAMILY HISTORY: Noncontributory. SOCIAL HISTORY: The patient does not smoke, does not drink alcohol and does not use illicit drugs. MEDICATIONS: The patient is on Synthroid 125 mcg by mouth daily, lispro insulin a.c. and at bedtime per sliding scale. The patient is on Zoloft 25 mg by mouth daily, Keppra 500 mg by mouth twice daily, Florinef 0.1 mg by mouth daily, hydrocortisone Cortef tablet 10 mg by mouth every morning. The patient is also on Macrobid 100 mg by mouth every 12 hours, Zofran under the tongue 4 mg every 8 hours as needed for nausea and vomiting. The patient on Lantus insulin 10 units subcutaneous twice daily. ALLERGIES: THE PATIENT IS ALLERGIC TO PENICILLIN, VORTIOXETINE, ZIPRASIDONE, AND VANCOMYCIN. REVIEW OF SYSTEMS: CONSTITUTIONAL: There is no fever, no chills, no diaphoresis. HEENT: There is no headache or sore throat. CARDIOVASCULAR SYSTEM: There is no chest pain or orthopnea. RESPIRATORY SYSTEM: There is no shortness of breath or cough. GASTROINTESTINAL SYSTEM: There is no nausea, no vomiting, no abdominal pain, diarrhea or constipation. NEUROLOGICAL SYSTEM: Generalized weakness noted, dizziness noted. No change in mental status. MUSCULOSKELETAL SYSTEM: There is no joint pain or swelling. DERMATOLOGICAL SYSTEM: There is no skin rash or itching. GENITOURINARY SYSTEM: There is no dysuria, hematuria, or flank pain. Rest of system review is normal. PHYSICAL EXAMINATION: GENERAL: At the time of exam, the patient was found to be lethargic but able to communicate, looking weak and not in acute distress. VITAL SIGNS: At the initial time of presentation showed temperature of 97.3 degrees Fahrenheit, pulse of 79, respirations 16, blood pressure initially was 56/30, and after 2 hours of treatment, blood pressure came up to 78/52, O2 sat of 96% on room air. HEENT: Showed pupils to be equal, round, reactive to light and accommodating. Extraocular muscles are intact. NECK: Supple with no JVD or carotid bruit. CARDIOVASCULAR SYSTEM: Showed normal first and second heart sounds with no gallops or murmurs. RESPIRATORY SYSTEM: Showed good air entry on both sides of the lungs with no abnormal breath sounds. GASTROINTESTINAL SYSTEM: Showed abdomen to be full, soft, nontender with no organomegaly or rigidity. NEUROLOGIC: Shows no focal deficit. MUSCULOSKELETAL SYSTEM: Showed no joint swelling or tenderness. DERMATOLOGICAL SKIN: Showed no skin rash. GENITOURINARY SYSTEM: Showing no costovertebral angle tenderness. PERTINENT LABORATORY AND IMAGING STUDIES: The patient had chest x-ray done that shows no acute cardiopulmonary lesion. The patient's lab result shows CBC with normal white count, low hemoglobin of 9 and low hematocrit of 27.3 with CBC differential showing elevated lymphocyte count of 49.2%. The patient's chemistry showed low potassium level of 3.1 with normal sodium level and elevated BUN of 32 with elevated creatinine of 1.8. The patient's blood glucose initially was low with a value of 35 and rest of the patient's chemistry showed low calcium level of 8.2. The patient's urinalysis show moderately elevated urine leukocyte esterase with high urine WBC of 42 and high urine rbc's of 21 with 1+ bacteria. Urine test was negative. DIAGNOSES: 1. Hypotension. 2. Hypoglycemia. 3. Renal Insufficiency. 4. Urinary tract infection. PLAN OF CARE: 1. The patient will be admitted to telemetry. 2. The patient will be on IV normal saline running at 150 mL an hour. 3. The patient will be on Accu-Chek every hour for 3 hours, then every 4 hours followed by low-dose sliding scale using regular insulin coverage. 4. The patient's diet will be consistent carbohydrate diet. 5. The patient will be on IV Levaquin 500 mg daily for treatment of urinary tract infection. 6. The patient will have Nephrology consult with Dr. Núñez for management renal failure. 7. The patient will be on Tylenol 650 mg by mouth every 4 hours for fever and headache and will be on IV Zofran 4 mg every 8 hours for nausea and vomiting. 8. The patient will have basic metabolic panel checked this morning, 03/28/2019. 9. The patient will have a 2D echo done this morning to check the cardiac function status. JOB# [id number] OCN/NTS MTDD
[2019-03-28] MEDS: LEVOTHYROXINE 125 MCG TAB PO SCH (08:31)
[2019-03-28 08:57] LABS: Calcium 6.8 mg/dL (8.4-10.2)
[2019-03-28] MEDS: SERTRALINE 25 MG TAB PO SCH (10:50)
[2019-03-28] MEDS: levETIRAcetam 500 MG TAB PO SCH ×2 (10:51→22:47)
[2019-03-28] MEDS: FLUDROCORTISONE 0.1 MG TAB PO SCH (10:51)
--- NOTE | 2019-03-28 14:01 | Consultation ---
History of Present Illness - Reason for Consult Consult date: 03/28/19 acute renal failure Requesting physician: AMMON BLACKBURN - History of Present Illness This is a 28 yo CF with past medical history of diabetes mellitus, CKD stage 2, Hypohyroidism, [place]'s disease, celiac disease, who presents to [facility] wtih complains of weakness, dizziness. Pt was found to be hypotensive with BP as low as 70/50s, Labs showed evidence of UTI, low serum glucose at 35 along with elevated BUN/Cr at 32/1.8mg/dl for which nephrology consult was requested. Pt denies recent NSAIDs use or IV contrast exposure. Pt does not remember her baseline Cr or eGFR however was told that she is at stage 2 CKD. Past History Past Medical History: diabetes, hypothyroidism, renal failure, other ([place] disease ) Past Surgical History: appendectomy, cholecystectomy, Social history: denies: smoking, alcohol abuse, prescription drug abuse, IV drug use Family history: no significant family history Medications and Allergies Allergies Allergy/AdvReac Type Severity Reaction Status Date / Time Penicillins Allergy Angioedema Verified 12/31/18 16:01 vortioxetine Allergy Unknown Verified 12/31/18 16:01 [From Trintellix] ziprasidone [From Geodon] Allergy Angioedema Verified 12/31/18 16:01 vancomycin AdvReac Itching Verified 12/31/18 16:01 Home Medications Medication Instructions Recorded Confirmed Last Taken Type Levothyroxine [Synthroid] 125 mcg PO DAILY #30 tablet 02/17/19 03/11/19 02/23/19 Rx Lispro Insulin [HumaLOG] 0 unit SUB-Q ACHS units 02/17/19 03/11/19 02/23/19 Rx Sertraline [Zoloft] 25 mg PO QDAY #30 tablet 02/17/19 03/11/19 02/23/19 Rx levETIRAcetam [Keppra TAB] 500 mg PO BID #60 tablet 02/17/19 03/11/19 02/23/19 Rx Fludrocortisone [Florinef] 0.1 mg PO QDAY #30 tablet 02/25/19 03/03/19 Unknown Rx Hydrocortisone [Cortef TAB] 10 mg PO QAM #30 tablet 02/25/19 03/11/19 Unknown Rx Nitrofurantoin [place]/M-Cryst 100 mg PO Q12HR #14 capsule 02/28/19 03/03/19 Unknown Rx [Macrobid CAP] Ondansetron [Zofran ODT TAB] 4 mg PO Q8HR PRN #20 tab.rapdis 02/28/19 03/03/19 Unknown Rx Blood Sugar Diagnostic [Test 1 each MC BID #100 strip 03/06/19 Unknown Rx Strips] Hydrocortisone [Cortef TAB] 5 mg PO QPM #30 tablet 03/06/19 03/11/19 Unknown Rx Insulin Glargine [Lantus VIAL] 10 units SUB-Q BID #60 units 03/06/19 03/11/19 Unknown Rx Syringe and Needle,Insulin,1Ml 1 each MC BID #1 box 03/06/19 Unknown Rx [Insulin Syringe/Needle 1 ML] Active Meds: Active Medications Acetaminophen (Tylenol) 650 mg PO Q4H PRN PRN Reason: Fever >101 Dextrose (D50w (25gm) Syringe) 50 ml IV PRN PRN PRN Reason: Hypoglycemia Fludrocortisone Acetate (Florinef) 0.1 mg PO QDAY [facility] Last Admin: 03/28/19 10:51 Dose: 0.1 mg Documented by: Hydrocortisone Acetate (Cortef) 5 mg PO QPM MARINO Dextrose (D10w) 1,000 mls @ 75 mls/hr IV DIRECT MARINO Last Admin: 03/27/19 21:23 Dose: 75 mls/hr Documented by: Sodium Chloride (Nacl 0.9% 1000 Ml) 1,000 mls @ 150 mls/hr IV DIRECT [facility] Last Admin: 03/28/19 05:33 Dose: 150 mls/hr Documented by: Levofloxacin/Dextrose (Levaquin 250mg/50ml) 250 mg in 50 mls @ 50 mls/hr IV Q24HR MARINO; Protocol Insulin Human Regular (Humulin R) 0 units SUB-Q Q4HR [facility]; Protocol Last Admin: 03/28/19 10:43 Dose: Not Given Documented by: Levetiracetam (Keppra) 500 mg PO BID [facility] Last Admin: 03/28/19 10:51 Dose: 500 mg Documented by: Levothyroxine Sodium (Synthroid) 125 mcg PO DAILY@0600 [facility] Last Admin: 03/28/19 08:31 Dose: 125 mcg Documented by: Ondansetron HCl (Zofran) 4 mg IV Q8H PRN PRN Reason: Nausea And Vomiting Sertraline HCl (Zoloft) 25 mg PO QDAY MARINO Last Admin: 03/28/19 10:50 Dose: 25 mg Documented by: Review of Systems All systems: negative Constitutional: fatigue, weakness Genitourinary Female: dysuria Neurological: other (dizziness ) Exam - Vital Signs Vital signs: Vital Signs Temp Pulse Resp BP Pulse Ox 97.3 F L 79 16 56/30 96 03/27/19 17:40 03/27/19 17:40 03/27/19 17:40 03/27/19 17:40 03/27/19 17:40 - General Appearance General appearance: well-nourished, appears stated age EENT: ATNC, PERRL, mucous membranes moist Neck: Present: neck supple Respiratory: Clear to Ascultation Heart: regular, S1S2 Gastrointestinal: Present: normoactive bowel sounds Integumentary: no rash, other (no edema ) Neurologic: no focal deficit, alert and oriented x3, strength 5/5, CN 3-12 intact Psychiatric: mood/affect appropriate, cooperative Results - Lab Results 03/27/19 19:04 03/28/19 08:08 Most recent lab results Calcium 6.8 mg/dL (8.4-10.2) L D 03/28/19 08:08 Magnesium 1.90 mg/dL (1.7-2.3) 03/27/19 19:14 Assessment and Plan - Patient Problems (1) BRANDEE (acute kidney injury) Current Visit: No Status: Acute Plan to address problem: acute kidney injury most likely secondary to pre-renal azotemia in the setting of UTI, hypotension. renal function improved promptly with IV hydration. Cont IV NS at 75ml/hr. avoid nephrotoxins, NSAIDs, IV contrast. will montor lytes, renal parameters closely and make further recommendations (2) Hypotension Current Visit: Yes Status: Acute Plan to address problem: improved with IV NS bolus (3) [place]'s disease Current Visit: Yes Status: Acute Plan to address problem: on fludrocortisone (4) Hypoglycemia Current Visit: Yes Status: Acute Plan to address problem: glucose control as per primary attending. on D5W (5) UTI (urinary tract infection) Current Visit: No Status: Acute Plan to address problem: cont ABXs with levaquin. no dose adjustment needed given improved eGFR
--- NOTE | 2019-03-28 15:55 | Progress Note ---
Assessment and Plan Assessment and plan: --Hypoglycemia/labile blood sugars Current Visit: Yes Status: Acute Accu-Chek sliding scale coverage and ADA diet Insulin as needed, avoid hypoglycemia --UTI (urinary tract infection) Current Visit: No Status: Acute empiric antibiotics, follow cultures -- BRANDEE (acute kidney injury); vasomotor nephropathy Current Visit: No Status: Acute acute kidney injury most likely secondary to vasomotor nephropathy Continue gentle hydration , monitor renal function , avoid nephrotoxins Nephrology following --Hypotension Current Visit: Yes Status: Acute Mild improvement continue IV fluids Closely monitor --History of [place] disease Current Visit: Yes Status: Acute Continue current management --DVT prophylaxis; Lovenox Monitor closely and adjust management as needed History Interval history: Patient seen and examined medical records reviewed Well-known to us service admitted with hypoglycemia acute kidney injury and urinary tract infection Patient feels slightly better Alert awake oriented 3 Vital signs noted Hospitalist Physical - Constitutional Vitals: Temp Pulse Resp BP Pulse Ox 98.1 F 68 18 95/67 97 03/28/19 07:44 03/28/19 10:00 03/28/19 07:44 03/28/19 07:44 03/28/19 07:44 General appearance: Present: no acute distress, well-nourished - EENT Eyes: Present: PERRL, EOM intact - Neck Neck: Present: supple, normal ROM - Respiratory Respiratory effort: normal Respiratory: bilateral: diminished, negative: rales, rhonchi, wheezing - Cardiovascular Rhythm: regular Heart Sounds: Present: S1 & S2 - Extremities Extremities: no ischemia, No edema - Abdominal General gastrointestinal: soft, non-tender, non-distended, normal bowel sounds - Integumentary Integumentary: Present: clear, warm - Psychiatric Psychiatric: appropriate mood/affect, cooperative - Neurologic Neurologic: CNII-XII intact, moves all extremities Results - Labs CBC & Chem 7: 03/27/19 19:04 03/28/19 08:08 Labs: Laboratory Last Values WBC 8.5 K/mm3 (4.5-11.0) 03/27/19 19:04 RBC 3.35 M/mm3 (3.65-5.03) L 03/27/19 19:04 Hgb 9.0 gm/dl (10.1-14.3) L 03/27/19 19:04 Hct 27.3 % (30.3-42.9) L 03/27/19 19:04 MCV 82 fl (79-97) 03/27/19 19:04 MCH 27 pg (28-32) L 03/27/19 19:04 MCHC 33 % (30-34) 03/27/19 19:04 RDW 14.8 % (13.2-15.2) 03/27/19 19:04 Plt Count 275 K/mm3 (140-440) 03/27/19 19:04 Lymph % (Auto) 49.2 % (13.4-35.0) H 03/27/19 19:04 [place] % (Auto) 4.0 % (0.0-7.3) 03/27/19 19:04 Eos % (Auto) 2.4 % (0.0-4.3) 03/27/19 19:04 Baso % (Auto) 0.9 % (0.0-1.8) 03/27/19 19:04 Lymph # 4.2 K/mm3 (1.2-5.4) 03/27/19 19:04 [place] # 0.3 K/mm3 (0.0-0.8) 03/27/19 19:04 Eos # 0.2 K/mm3 (0.0-0.4) 03/27/19 19:04 Baso # 0.1 K/mm3 (0.0-0.1) 03/27/19 19:04 Seg Neutrophils % 43.5 % (40.0-70.0) 03/27/19 19:04 Seg Neutrophils # 3.7 K/mm3 (1.8-7.7) 03/27/19 19:04 PT 13.3 Sec. (12.2-14.9) 03/27/19 19:04 INR 1.04 (0.87-1.13) 03/27/19 19:04 APTT 25.0 Sec. (24.2-36.6) 03/27/19 19:04 VBG pH 7.310 (7.320-7.420) L 03/27/19 19:14 Sodium 139 mmol/L (137-145) 03/28/19 08:08 Potassium 4.6 mmol/L (3.6-5.0) D 03/28/19 08:08 Chloride 109.5 mmol/L (98-107) H 03/28/19 08:08 Carbon Dioxide 20 mmol/L (22-30) L D 03/28/19 08:08 14 mmol/L 03/28/19 08:08 BUN 21 mg/dL (7-17) H 03/28/19 08:08 1.2 mg/dL (0.7-1.2) 03/28/19 08:08 Estimated GFR 53 ml/min 03/28/19 08:08 18 % 03/28/19 08:08 Glucose 63 mg/dL (65-100) L 03/28/19 08:08 POC Glucose 224 (70-105) H 03/28/19 14:11 Negative (Negative) 03/27/19 19:04 Calcium 6.8 mg/dL (8.4-10.2) L D 03/28/19 08:08 Magnesium 1.90 mg/dL (1.7-2.3) 03/27/19 19:14 21 units/L (30-135) L 03/27/19 23:55 CK-MB (CK-2) < 1.0 ng/mL (0.0-4.0) 03/27/19 23:55 CK-MB (CK-2) Rel Index 4.7 (0-4) H 03/27/19 23:55 < 0.010 ng/mL (0.00-0.029) 03/27/19 23:55 TSH 2.480 mlU/mL (0.270-4.200) 03/27/19 19:04 HCG, Qual Negative (Negative) 03/27/19 19:04 Yellow (Yellow) 03/27/19 22:23 Slightly-cloudy (Clear) 03/27/19 22:23 5.0 (5.0-7.0) 03/27/19 22:23 Ur Specific [place] 1.017 (1.003-1.030) 03/27/19 22:23 <15 mg/dl mg/dL (Negative) 03/27/19 22:23 >=500 mg/dL (Negative) 03/27/19 22:23 Neg mg/dL (Negative) 03/27/19 22:23 Neg (Negative) 03/27/19 22:23 Neg (Negative) 03/27/19 22:23 Ur Reducing Substances Not Reportable 03/27/19 22:23 Neg (Negative) 03/27/19 22:23 Not Reportable 03/27/19 22:23 < 2.0 mg/dL (<2.0) 03/27/19 22:23 Ur Leukocyte Esterase Mod (Negative) 03/27/19 22:23 42.0 /HPF (0.0-6.0) H 03/27/19 22:23 21.0 /HPF (0.0-6.0) 03/27/19 22:23 U Epithel Cells (Auto) 1.0 /HPF (0-13.0) 03/27/19 22:23 1+ /HPF (Negative) 03/27/19 22:23 Few /HPF 03/27/19 22:23 Urine HCG, Qual Negative (Negative) 03/27/19 22:23 Active Medications - Current Medications Current Medications: Generic Name Dose Route Start Last Admin Trade Name Freq PRN Reason Stop Dose Admin Acetaminophen 650 mg 03/28/19 06:01 Tylenol PO Q4H PRN Fever >101 Dextrose 50 ml 03/27/19 22:04 D50w (25gm) Syringe IV PRN PRN Hypoglycemia Fludrocortisone Acetate 0.1 mg 03/28/19 10:00 03/28/19 10:51 Florinef PO 0.1 mg QDAY MARINO Administration Hydrocortisone Acetate 5 mg 03/28/19 18:00 Cortef PO QPM MARINO Dextrose 1,000 mls @ 75 mls/hr 03/27/19 21:00 03/27/19 21:23 D10w IV 75 mls/hr DIRECT MARINO Administration Sodium Chloride 1,000 mls @ 150 mls/hr 03/27/19 23:00 03/28/19 15:52 Nacl 0.9% 1000 Ml IV 75 mls/hr DIRECT MARINO Infusion Levofloxacin/Dextrose 250 mg in 50 mls @ 50 mls/hr 03/29/19 10:00 Levaquin 250mg/50ml IV Q24HR MARINO Protocol Insulin Human Regular 0 units 03/27/19 23:00 03/28/19 14:09 Humulin R SUB-Q 2 units Q4HR MARINO Administration Protocol Levetiracetam 500 mg 03/28/19 10:00 03/28/19 10:51 Keppra PO 500 mg BID MARINO Administration Levothyroxine Sodium 125 mcg 03/28/19 07:00 03/28/19 08:31 Synthroid PO 125 mcg DAILY@0600 MARINO Administration Ondansetron HCl 4 mg 03/28/19 06:03 Zofran IV Q8H PRN Nausea And Vomiting Sertraline HCl 25 mg 03/28/19 10:00 03/28/19 10:50 Zoloft PO 25 mg QDAY MARINO Administration
[2019-03-28] MEDS: HYDROCORTISONE 10 MG TAB PO SCH (17:37)
[2019-03-29] MEDS: INSULIN REGULAR, HUMAN 100 UNITS/1 ML SUB-Q SCH ×6 (02:44→22:03)
[2019-03-29 05:20] LABS: Calcium 7.1 mg/dL (8.4-10.2)
[2019-03-29] MEDS: LEVOTHYROXINE 125 MCG TAB PO SCH (05:58)
[2019-03-29] MEDS: levETIRAcetam 500 MG TAB PO SCH ×2 (09:55→21:57)
[2019-03-29] MEDS: FLUDROCORTISONE 0.1 MG TAB PO SCH (09:55)
[2019-03-29] MEDS: SERTRALINE 25 MG TAB PO SCH (09:56)
--- NOTE | 2019-03-29 10:10 | Progress Note ---
Assessment and Plan Assessment and plan: --Hypoglycemia/severe hyperglycemia/labile blood sugars Current Visit: Yes Status: Acute Accu-Chek sliding scale coverage and ADA diet Insulin as needed, avoid hypoglycemia --UTI (urinary tract infection) Current Visit: No Status: Acute empiric antibiotics, follow cultures -- BARNDEE (acute kidney injury); vasomotor nephropathy Current Visit: No Status: Acute acute kidney injury most likely secondary to vasomotor nephropathy Continue gentle hydration , monitor renal function , avoid nephrotoxins Nephrology following --History of seizure disorder; Continue Keppra for seizure precautions Do not drive --Hypotension Current Visit: Yes Status: Acute. Mild improvement continue IV fluids Continue Florinef and hydrocortisone Closely monitor --History of [place]'s disease Current Visit: Yes Status: Acute Continue current management --DVT prophylaxis; Lovenox Monitor closely and adjust management as needed Possible discharge in 1-2 days if stable plan of care is reviewed with the patient and her nurse History Interval history: Patient seen and examined medical records reviewed Patient has labile blood pressures and very labile blood sugars Well-known to our service multiple admissions in the past Feels slightly better Alert awake oriented no new complaints Vital signs reviewed Hospitalist Physical - Constitutional Vitals: Temp Pulse Resp BP Pulse Ox 98.1 F 94 H 18 119/82 98 03/29/19 05:02 03/29/19 05:00 03/29/19 05:00 03/29/19 05:00 03/29/19 05:00 General appearance: Present: no acute distress, well-nourished - EENT Eyes: Present: PERRL, EOM intact - Neck Neck: Present: supple, normal ROM - Respiratory Respiratory effort: normal Respiratory: bilateral: diminished, negative: rales, rhonchi, wheezing - Cardiovascular Rhythm: regular Heart Sounds: Present: S1 & S2 - Extremities Extremities: no ischemia, No edema - Abdominal General gastrointestinal: soft, non-tender, non-distended, normal bowel sounds - Integumentary Integumentary: Present: clear, warm - Psychiatric Psychiatric: appropriate mood/affect, cooperative - Neurologic Neurologic: CNII-XII intact, moves all extremities Results - Labs CBC & Chem 7: 03/27/19 19:04 03/29/19 08:30 Labs: Laboratory Last Values WBC 8.5 K/mm3 (4.5-11.0) 03/27/19 19:04 RBC 3.35 M/mm3 (3.65-5.03) L 03/27/19 19:04 Hgb 9.0 gm/dl (10.1-14.3) L 03/27/19 19:04 Hct 27.3 % (30.3-42.9) L 03/27/19 19:04 MCV 82 fl (79-97) 03/27/19 19:04 MCH 27 pg (28-32) L 03/27/19 19:04 MCHC 33 % (30-34) 03/27/19 19:04 RDW 14.8 % (13.2-15.2) 03/27/19 19:04 Plt Count 275 K/mm3 (140-440) 03/27/19 19:04 Lymph % (Auto) 49.2 % (13.4-35.0) H 03/27/19 19:04 [place] % (Auto) 4.0 % (0.0-7.3) 03/27/19 19:04 Eos % (Auto) 2.4 % (0.0-4.3) 03/27/19 19:04 Baso % (Auto) 0.9 % (0.0-1.8) 03/27/19 19:04 Lymph # 4.2 K/mm3 (1.2-5.4) 03/27/19 19: [place] # 0.3 K/mm3 (0.0-0.8) 03/27/19 19:04 Eos # 0.2 K/mm3 (0.0-0.4) 03/27/19 19:04 Baso # 0.1 K/mm3 (0.0-0.1) 03/27/19 19:04 Seg Neutrophils % 43.5 % (40.0-70.0) 03/27/19 19: Seg Neutrophils # 3.7 K/mm3 (1.8-7.7) 03/27/19 19:04 PT 13.3 Sec. (12.2-14.9) 03/27/19 19:04 INR 1.04 (0.87-1.13) 03/27/19 19:04 APTT 25.0 Sec. (24.2-36.6) 03/27/19 19:04 VBG pH 7.310 (7.320-7.420) L 03/27/19 19:14 Sodium 135 mmol/L (137-145) L 03/29/19 04:55 Potassium 3.7 mmol/L (3.6-5.0) 03/29/19 04:55 Chloride 104.6 mmol/L (98-107) 03/29/19 04:55 Carbon Dioxide 19 mmol/L (22-30) L 03/29/19 04:55 15 mmol/L 03/29/19 04:55 BUN 23 mg/dL (7-17) H 03/29/19 04:55 1.4 mg/dL (0.7-1.2) H 03/29/19 04:55 Estimated GFR 45 ml/min 03/29/19 04:55 16 % 03/29/19 04:55 Glucose 379 mg/dL (65-100) H 03/29/19 04:55 POC Glucose < 40 (70-105) L 03/29/19 08:54 Negative (Negative) 03/27/19 19:04 Calcium 7.1 mg/dL (8.4-10.2) L 03/29/19 04:55 Magnesium 1.50 mg/dL (1.7-2.3) L 03/29/19 04:55 21 units/L (30-135) L 03/27/19 23:55 CK-MB (CK-2) < 1.0 ng/mL (0.0-4.0) 03/27/19 23:55 CK-MB (CK-2) Rel Index 4.7 (0-4) H 03/27/19 23:55 < 0.010 ng/mL (0.00-0.029) 03/27/19 23:55 TSH 2.480 mlU/mL (0.270-4.200) 03/27/19 19:04 HCG, Qual Negative (Negative) 03/27/19 19:04 Yellow (Yellow) 03/27/19 22:23 Slightly-cloudy (Clear) 03/27/19 22:23 5.0 (5.0-7.0) 03/27/19 22:23 Ur Specific [place] 1.017 (1.003-1.030) 03/27/19 22:23 <15 mg/dl mg/dL (Negative) 03/27/19 22:23 >=500 mg/dL (Negative) 03/27/19 22:23 Neg mg/dL (Negative) 03/27/19 22:23 Neg (Negative) 03/27/19 22:23 Neg (Negative) 03/27/19 22:23 Ur Reducing Substances Not Reportable 03/27/19 22:23 Neg (Negative) 03/27/19 22:23 Not Reportable 03/27/19 22:23 < 2.0 mg/dL (<2.0) 03/27/19 22:23 Ur Leukocyte Esterase Mod (Negative) 03/27/19 22:23 42.0 /HPF (0.0-6.0) H 03/27/19 22:23 21.0 /HPF (0.0-6.0) 03/27/19 22:23 U Epithel Cells (Auto) 1.0 /HPF (0-13.0) 03/27/19 22:23 1+ /HPF (Negative) 03/27/19 22:23 Few /HPF 03/27/19 22:23 Urine HCG, Qual Negative (Negative) 03/27/19 22:23 Active Medications - Current Medications Current Medications: Generic Name Dose Route Start Last Admin Trade Name Freq PRN Reason Stop Dose Admin Acetaminophen 650 mg 03/28/19 06:01 Tylenol PO Q4H PRN Fever >101 Dextrose 50 ml 03/27/19 22:04 03/29/19 08:48 D50w (25gm) Syringe IV 50 ml PRN PRN Administration Hypoglycemia Fludrocortisone Acetate 0.1 mg 03/28/19 10:00 03/29/19 09:55 Florinef PO 0.1 mg QDAY MARINO Administration Hydrocortisone Acetate 5 mg 03/28/19 18:00 03/28/19 17:37 Cortef PO 5 mg QPM MARINO Administration Dextrose 1,000 mls @ 75 mls/hr 03/27/19 21:00 03/27/19 21:23 D10w IV 75 mls/hr DIRECT MARINO Administration Sodium Chloride 1,000 mls @ 150 mls/hr 03/27/19 23:00 03/28/19 15:52 Nacl 0.9% 1000 Ml IV 75 mls/hr DIRECT MARNIO Infusion Levofloxacin/Dextrose 250 mg in 50 mls @ 50 mls/hr 03/29/19 10:00 03/29/19 09:56 Levaquin 250mg/50ml IV 50 mls/hr Q24HR MARINO Administration Protocol Magnesium Sulfate 2 gm in 50 mls @ 25 mls/hr 03/29/19 09:59 Magnesium Sulfate 2gm/50ml IV 03/29/19 11:58 ONCE ONE Insulin Human Regular 0 units 03/27/19 23:00 03/29/19 09:52 Humulin R SUB-Q Not Given Q4HR MARINO Protocol Levetiracetam 500 mg 03/28/19 10:00 03/29/19 09:55 Keppra PO 500 mg BID MARINO Administration Levothyroxine Sodium 125 mcg 03/28/19 07:00 03/29/19 05:58 Synthroid PO 125 mcg DAILY@0600 MARINO Administration Ondansetron HCl 4 mg 03/28/19 06:03 Zofran IV Q8H PRN Nausea And Vomiting Sertraline HCl 25 mg 03/28/19 10:00 03/29/19 09:56 Zoloft PO 25 mg QDAY MARINO Administration
[2019-03-29] MEDS ORDERED: MAGNESIUM SULFATE 2 GM/50 ML BAG IV ONE (10:30)
--- NOTE | 2019-03-29 10:33 | Progress Note ---
Assessment and Plan - Patient Problems (1) BRANDEE (acute kidney injury) Current Visit: No Status: Acute Plan to address problem: acute kidney injury most likely secondary to pre-renal azotemia in the setting of UTI, hypotension. renal function improved promptly with IV hydration. Cont IV NS at 75ml/hr. avoid nephrotoxins, NSAIDs, IV contrast. will montor lytes, renal parameters closely and make further recommendations (2) Hypotension Current Visit: Yes Status: Acute Plan to address problem: improved with IV NS bolus (3) [place]'s disease Current Visit: Yes Status: Acute Plan to address problem: on fludrocortisone (4) Hypoglycemia Current Visit: Yes Status: Acute Plan to address problem: glucose control as per primary attending. on D5W (5) UTI (urinary tract infection) Current Visit: No Status: Acute Plan to address problem: cont ABXs with levaquin. no dose adjustment needed given improved eGFR Subjective Date of service: 03/29/19 Principal diagnosis: BRANDEE on CKD Interval history: Patient awake, alert, in NAD Objective - Vital Signs Vital signs: Vital Signs - 12hr 03/28/19 03/28/19 03/29/19 22:55 22:56 05:00 Temperature 98.3 F Pulse Rate 100 H 94 H Respiratory 16 18 Rate Blood Pressure 116/81 119/82 O2 Sat by Pulse 98 98 Oximetry 03/29/19 03/29/19 05:02 08:50 Temperature 98.1 F 98.0 F Pulse Rate Respiratory 18 Rate Blood Pressure 109/69 O2 Sat by Pulse Oximetry - General Appearance General appearance: well-developed, well-nourished, appears stated age EENT: ATNC, PERRL, mucous membranes moist Neck: no JVD Respiratory: Present: Clear to Ascultation Cardiology: regular, S1S2 Gastrointestinal: normoactive bowel sounds Integumentary: no rash, other (no edema ) Neurologic: no focal deficit, alert and oriented x3, strength 5/5, CN 3-12 intact Psychiatric: mood/affect appropriate, cooperative - Lab 03/27/19 19:04 03/29/19 08:30 Most recent lab results Calcium 7.1 mg/dL (8.4-10.2) L 03/29/19 04:55 Magnesium 1.50 mg/dL (1.7-2.3) L 03/29/19 04:55 Medications & Allergies - Medications Allergies/Adverse Reactions: Allergies Penicillins Allergy (Verified 12/31/18 16:01) Angioedema vortioxetine [From Trintellix] Allergy (Verified 12/31/18 16:01) Unknown ziprasidone [From Geodon] Allergy (Verified 12/31/18 16:01) Angioedema vancomycin Adverse Reaction (Verified 12/31/18 16:01) Itching Home Medications: Home Medications Medication Instructions Recorded Confirmed Last Taken Type Levothyroxine [Synthroid] 125 mcg PO DAILY #30 tablet 02/17/19 03/11/19 02/23/19 Rx Lispro Insulin [HumaLOG] 0 unit SUB-Q ACHS units 02/17/19 03/11/19 02/23/19 Rx Sertraline [Zoloft] 25 mg PO QDAY #30 tablet 02/17/19 03/11/19 02/23/19 Rx levETIRAcetam [Keppra TAB] 500 mg PO BID #60 tablet 02/17/19 03/11/19 02/23/19 Rx Fludrocortisone [Florinef] 0.1 mg PO QDAY #30 tablet 02/25/19 03/03/19 Unknown Rx Hydrocortisone [Cortef TAB] 10 mg PO QAM #30 tablet 02/25/19 03/11/19 Unknown Rx Nitrofurantoin [place]/M-Cryst 100 mg PO Q12HR #14 capsule 02/28/19 03/03/19 Unknown Rx [Macrobid CAP] Ondansetron [Zofran ODT TAB] 4 mg PO Q8HR PRN #20 tab.rapdis 02/28/19 03/03/19 Unknown Rx Blood Sugar Diagnostic [Test 1 each MC BID #100 strip 03/06/19 Unknown Rx Strips] Hydrocortisone [Cortef TAB] 5 mg PO QPM #30 tablet 03/06/19 03/11/19 Unknown Rx Insulin Glargine [Lantus VIAL] 10 units SUB-Q BID #60 units 03/06/19 03/11/19 Unknown Rx Syringe and Needle,Insulin,1Ml 1 each MC BID #1 box 03/06/19 Unknown Rx [Insulin Syringe/Needle 1 ML] Active Medications: Generic Name Dose Route Start Last Admin Trade Name Freq PRN Reason Stop Dose Admin Acetaminophen 650 mg 09/28/19 06:01 Tylenol PO Q4H PRN Fever >101 Dextrose 50 ml 03/27/19 22:04 03/29/19 08:48 D50w (25gm) Syringe IV 50 ml PRN PRN Administration Hypoglycemia Fludrocortisone Acetate 0.1 mg 03/28/19 10:00 03/29/19 09:55 Florinef PO 0.1 mg QDAY MARINO Administration Hydrocortisone Acetate 5 mg 03/28/19 18:00 03/28/19 17:37 Cortef PO 5 mg QPM MARINO Administration Dextrose 1,000 mls @ 75 mls/hr 03/27/19 21:00 03/27/19 21:23 D10w IV 75 mls/hr DIRECT MARINO Administration Sodium Chloride 1,000 mls @ 150 mls/hr 03/27/19 23:00 03/28/19 15:52 Nacl 0.9% 1000 Ml IV 75 mls/hr DIRECT MARINO Infusion Levofloxacin/Dextrose 250 mg in 50 mls @ 50 mls/hr 03/29/19 10:00 03/29/19 09:56 Levaquin 250mg/50ml IV 50 mls/hr Q24HR MARINO Administration Protocol Magnesium Sulfate 2 gm in 50 mls @ 25 mls/hr 03/29/19 10:30 Magnesium Sulfate 2gm/50ml IV 03/29/19 12:29 ONCE ONE Insulin Human Regular 0 units 03/27/19 23:00 03/29/19 09:52 Humulin R SUB-Q Not Given Q4HR MARINO Protocol Levetiracetam 500 mg 03/28/19 10:00 03/29/19 09:55 Keppra PO 500 mg BID MARINO Administration Levothyroxine Sodium 125 mcg 03/28/19 07:00 03/29/19 05:58 Synthroid PO 125 mcg DAILY@0600 MARINO Administration Ondansetron HCl 4 mg 03/28/19 06:03 Zofran IV Q8H PRN Nausea And Vomiting Sertraline HCl 25 mg 03/28/19 10:00 03/29/19 09:56 Zoloft PO 25 mg QDAY MARINO Administration
[2019-03-29] MEDS: HYDROCORTISONE 10 MG TAB PO SCH (17:16)
[2019-03-29] MEDS: SODIUM CHLORIDE 0.9% 1000 ML 1,000 ML IV SCH (22:01)
[2019-03-30] MEDS: LEVOTHYROXINE 125 MCG TAB PO SCH (07:05)
[2019-03-30 08:57] LABS: Calcium 7.5 mg/dL (8.4-10.2)
[2019-03-30 09:16] VITALS: BP 111/77
[2019-03-30] MEDS: levETIRAcetam 500 MG TAB PO SCH (09:38)
[2019-03-30] MEDS: SERTRALINE 25 MG TAB PO SCH (09:38)
[2019-03-30] MEDS: FLUDROCORTISONE 0.1 MG TAB PO SCH (09:38)
[2019-03-30] MEDS: INSULIN REGULAR, HUMAN 100 UNITS/1 ML SUB-Q SCH ×3 (11:00→14:50)
--- NOTE | 2019-03-30 14:15 | Discharge Summary ---
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 Pt was found to be hypotensive with BP as low as 70/50s, Labs showed evidence of UTI, low serum glucose at 35 along with elevated BUN/Cr at 32/1.8mg/dl. Well known to our service,non compliance with meds and diet,frequent admissions,labile blood sugars. Patient's medications optimised.Today patent feels better,vtal signs stable Physcal exam pror to discharge s unremarkable. Discharge Diagnoss: --Hypoglycemia/severe hyperglycemia/labile blood sugars Current Visit: Yes Status: Acute Non comlance wth diet,meds . Accu-Chek sliding scale coverage and ADA diet Insulin as needed, avoid hypoglycemia --UTI (urinary tract infection) Current Visit: No Status: Acute empiric antibiotics, follow cultures -- BRANDEE (acute kidney injury); vasomotor nephropathy Current Visit: No Status: Acute acute kidney injury most likely secondary to vasomotor nephropathy Continue gentle hydration , monitor renal function , avoid nephrotoxins Nephrology following --History of seizure disorder; Continue Keppra for seizure precautions Do not drive --Hypotension Current Visit: Yes Status: Acute. Mild improvement continue IV fluids Continue Florinef and hydrocortisone Closely monitor --History of Dante's disease Current Visit: Yes Status: Acute Continue current management --DVT prophylaxis; Lovenox Stable at discharge Disposition: [id number] HOME UNDER HOME HLTH Time spent for discharge: 32 min Core Measure Documentation - Palliative Care Palliative Care/ Comfort Measures: Not Applicable - Core Measures Any of the following diagnoses?: none Exam - Constitutional Vitals: Temp Pulse Resp BP Pulse Ox 98.1 F 72 18 111/77 100 03/30/19 04:28 03/30/19 09:10 03/30/19 04:28 03/30/19 09:10 03/30/19 09:10 General appearance: Present: no acute distress, well-nourished - EENT Eyes: Present: PERRL, EOM intact - Neck Neck: Present: supple, normal ROM - Respiratory Respiratory effort: normal Respiratory: bilateral: diminished, negative: rales, rhonchi, wheezing - Cardiovascular Rhythm: regular Heart Sounds: Present: S1 & S2 - Extremities Extremities: no ischemia, No edema - Abdominal General gastrointestinal: Present: soft, non-tender, non-distended, normal bowel sounds - Integumentary Integumentary: Present: clear, warm - Musculoskeletal Musculoskeletal: strength equal bilaterally - Psychiatric Psychiatric: appropriate mood/affect, cooperative - Neurologic Neurologic: CNII-XII intact, moves all extremities Plan Activity: no restrictions Diet: diabetic Additional Instructions: 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 Advsed to comply wt medications and diet Follow up with: PRIMARY CARE, [Primary Care Provider] - 3-5 Days
== END 2019-03-30 17:00 | disposition home health service (06) | DRG 689 ==
LOC: ED 17:29 → 4A 21:57
PROVIDERS: ADMIT Internal Medicine; ATTEND Internal Medicine
DX: N39.0 Urinary tract infection, site not specified (principal); N17.0 Acute kidney failure with tubular necrosis; E27.1 Primary adrenocortical insufficiency; N18.2 Chronic kidney disease, stage 2 (mild); G40.909 Epilepsy, unspecified, not intractable, without status epilepticus; E10.649 Type 1 diabetes mellitus with hypoglycemia without coma; E10.22 Type 1 diabetes mellitus with diabetic chronic kidney disease; E03.9 Hypothyroidism, unspecified; F32.9 Major depressive disorder, single episode, unspecified; Z90.49 Acquired absence of other specified parts of digestive tract; Z88.0 Allergy status to penicillin; Z88.8 Allergy status to other drugs, medicaments and biological substances; Z88.1 Allergy status to other antibiotic agents; Z91.14 Patient's other noncompliance with medication regimen
CPT/HCPCS: 36415; 71045; 80048; 81001; 81025; 82010; 82550; 82553; 82805; 82947; 82962; 83735; 84443; 84484; 84703; 85025; 85610; 85730; 87086; 87116; 93005; 93010; 93306; 96361; 96374; 96375; G0378; J1642; J1720; J1815; J1956; J2405; J2765; J3475; J3480; J7030; J7040

== ENCOUNTER 2019-04-08 17:56 | Inpatient (IN) | payer MEDICAID ==
[2019-04-08] MEDS ORDERED: SODIUM CHLORIDE 0.9% 1000 ML 1,000 ML IV ONE ×2 (19:37)
[2019-04-08] MEDS ORDERED: dexAMETHasone 4 MG/ML VIAL IV ONE (19:43)
[2019-04-08] MEDS ORDERED: FLUDROCORTISONE 0.1 MG TAB PO ONE (20:00)
[2019-04-08 20:10] LABS: Hematocrit 27.1 % (30.3-42.9); Hemoglobin 8.8 gm/dl (10.1-14.3); Mean Corpuscular HGB Conc 33 % (30-34); Mean Corpuscular Volume 81 fl (79-97); Platelet Count 255 K/mm3 (140-440); Red Blood Count 3.36 M/mm3 (3.65-5.03); Red Cell Distribution Width 14.6 % (13.2-15.2)
[2019-04-08 20:25] LABS: Albumin 3.8 g/dL (3.9-5); Calcium 8.6 mg/dL (8.4-10.2); INR 0.92 (0.87-1.13)
--- NOTE | 2019-04-08 20:25 | XRay Report ---
CHEST 1 VIEW INDICATION / CLINICAL INFORMATION: hypotension. COMPARISON: 03/27/2019 FINDINGS: SUPPORT DEVICES: Groshong catheter remains in place on the right. HEART / MEDIASTINUM: No significant abnormality. LUNGS / PLEURA: No significant pulmonary or pleural abnormality. No pneumothorax. ADDITIONAL FINDINGS: No significant additional findings. IMPRESSION: 1. No significant change Signer Name: Cameron Reese MD Signed: 04/08/2019 8:20 PM Workstation Name: [id number]
[2019-04-08 20:26] LABS: Partial Thromboplastin Time 36.9 Sec. (24.2-36.6)
[2019-04-08 22:34] LABS: Band Neutrophils # (Manual) 0.1 K/mm3; Monocytes % (Manual) 0 % (0.0-7.3); Platelet Estimate Consistent w Auto; RBC Morphology Normal; Total Cells Counted 100
--- NOTE | 2019-04-08 22:54 | Emergency Department Report ---
ED General Adult HPI - General Chief complaint: Dizziness Stated complaint: HYPOTENSION/DIZZINESS Time Seen by Provider: 04/08/19 19:05 Source: patient, EMS Mode of arrival: Ambulatory Limitations: No Limitations - History of Present Illness Initial comments: Patient presents to the emergency department with a chief complaint of dizziness and hypotension. The patient states she has a history of Comanche's disease and periodically goes into crisis. Patient states that she's taken her to steroids at home daily as prescribed. Patient denies fever, chest pain, shortness of breath, or abdominal pain. -: unknown Consistency: constant Improves with: none Worsens with: none Associated Symptoms: denies other symptoms Treatments Prior to Arrival: none - Related Data Previous Rx's Medication Instructions Recorded Last Taken Type Levothyroxine [Synthroid] 125 mcg PO DAILY #30 tablet 02/17/19 02/23/19 Rx Lispro Insulin [HumaLOG] 0 unit SUB-Q ACHS units 02/17/19 02/23/19 Rx Sertraline [Zoloft] 25 mg PO QDAY #30 tablet 02/17/19 02/23/19 Rx levETIRAcetam [Keppra TAB] 500 mg PO BID #60 tablet 02/17/19 02/23/19 Rx Fludrocortisone [Florinef] 0.1 mg PO QDAY #30 tablet 02/25/19 Unknown Rx Hydrocortisone [Cortef TAB] 10 mg PO QAM #30 tablet 02/25/19 Unknown Rx Nitrofurantoin [place]/M-Cryst 100 mg PO Q12HR #14 capsule 02/28/19 Unknown Rx [Macrobid CAP] Ondansetron [Zofran ODT TAB] 4 mg PO Q8HR PRN #20 tab.rapdis 02/28/19 Unknown Rx Hydrocortisone [Cortef TAB] 5 mg PO QPM #30 tablet 03/06/19 Unknown Rx Insulin Glargine [Lantus VIAL] 10 units SUB-Q BID #60 units 03/06/19 Unknown Rx Allergies Allergy/AdvReac Type Severity Reaction Status Date / Time Penicillins Allergy Angioedema Verified 12/31/18 16:01 vortioxetine Allergy Unknown Verified 12/31/18 16:01 [From Trintellix] ziprasidone [From Geodon] Allergy Angioedema Verified 12/31/18 16:01 vancomycin AdvReac Itching Verified 12/31/18 16:01 ED Review of Systems ROS: Stated complaint: HYPOTENSION/DIZZINESS Other details as noted in HPI Constitutional: denies: chills, fever Eyes: denies: eye pain, eye discharge, vision change ENT: denies: ear pain, throat pain Respiratory: denies: cough, shortness of breath, wheezing Cardiovascular: denies: chest pain, palpitations Endocrine: no symptoms reported Gastrointestinal: denies: abdominal pain, nausea, diarrhea Genitourinary: denies: urgency, dysuria, discharge Musculoskeletal: denies: back pain, joint swelling, arthralgia Skin: denies: rash, lesions Neurological: other (dizzy). denies: headache, weakness, paresthesias Psychiatric: denies: anxiety, depression Hematological/Lymphatic: denies: easy bleeding, easy bruising ED Past Medical Hx - Past Medical History Previous Medical History?: Yes Hx Congestive Heart Failure: No Hx Diabetes: Yes Hx Renal Disease: Yes (stage 2) Hx Seizures: Yes Hx Asthma: No Hx COPD: No Additional medical history: hypotension, hypothyroidism, Dante's disease, Depression, Celiac - Surgical History Past Surgical History?: Yes Hx Cholecystectomy: Yes Hx Appendectomy: Yes Additional Surgical History: 4. port right chest wall - Social History Smoking Status: Never Smoker Substance Use Type: None - Medications Home Medications: Home Medications Medication Instructions Recorded Confirmed Last Taken Type Levothyroxine [Synthroid] 125 mcg PO DAILY #30 tablet 02/17/19 03/11/19 02/23/19 Rx Lispro Insulin [HumaLOG] 0 unit SUB-Q ACHS units 02/17/19 03/11/19 02/23/19 Rx Sertraline [Zoloft] 25 mg PO QDAY #30 tablet 02/17/19 03/11/19 02/23/19 Rx levETIRAcetam [Keppra TAB] 500 mg PO BID #60 tablet 02/17/19 03/11/19 02/23/19 Rx Fludrocortisone [Florinef] 0.1 mg PO QDAY #30 tablet 02/25/19 03/03/19 Unknown Rx Hydrocortisone [Cortef TAB] 10 mg PO QAM #30 tablet 02/25/19 03/11/19 Unknown Rx Nitrofurantoin [place]/M-Cryst 100 mg PO Q12HR #14 capsule 02/28/19 03/03/19 Unknown Rx [Macrobid CAP] Ondansetron [Zofran ODT TAB] 4 mg PO Q8HR PRN #20 tab.rapdis 02/28/19 03/03/19 Unknown Rx Hydrocortisone [Cortef TAB] 5 mg PO QPM #30 tablet 03/06/19 03/11/19 Unknown Rx Insulin Glargine [Lantus VIAL] 10 units SUB-Q BID #60 units 03/06/19 03/11/19 Unknown Rx ED Physical Exam - General Limitations: No Limitations General appearance: alert, in no apparent distress - Head Head exam: Present: atraumatic, normocephalic - Eye Eye exam: Present: normal appearance, PERRL, EOMI - ENT ENT exam: Present: mucous membranes moist - Neck Neck exam: Present: normal inspection - Respiratory Respiratory exam: Present: normal lung sounds bilaterally. Absent: respiratory distress - Cardiovascular Cardiovascular Exam: Present: regular rate, normal rhythm. Absent: systolic murmur, diastolic murmur, rubs, gallop - GI/Abdominal GI/Abdominal exam: Present: soft, normal bowel sounds. Absent: distended, tenderness - Extremities Exam Extremities exam: Present: normal inspection - Back Exam Back exam: Present: normal inspection - Neurological Exam Neurological exam: Present: alert, oriented X3, CN II-XII intact. Absent: motor sensory deficit - Psychiatric Psychiatric exam: Present: normal affect, normal mood - Skin Skin exam: Present: warm, dry, intact, normal color. Absent: rash ED Course Vital Signs 04/08/19 04/08/19 04/08/19 18:41 18:51 19:00 Temperature 98 F Pulse Rate 80 88 Respiratory 18 18 Rate Blood Pressure 80/56 73/44 O2 Sat by Pulse 100 100 100 Oximetry 04/08/19 04/08/19 04/08/19 19:30 20:00 20:30 Temperature Pulse Rate 83 97 H 85 Respiratory 17 22 Rate Blood Pressure 85/59 85/59 92/59 O2 Sat by Pulse 98 100 99 Oximetry 04/08/19 21:00 Temperature Pulse Rate 88 Respiratory 15 Rate Blood Pressure 102/63 O2 Sat by Pulse 100 Oximetry ED Medical Decision Making - Lab Data Result diagrams: 04/08/19 19:51 04/08/19 19:51 Lab Results 04/08/19 04/08/19 04/08/19 Range/Units 19:51 19:51 19:51 WBC 6.2 (4.5-11.0) K/mm3 RBC 3.36 L (3.65-5.03) M/mm3 Hgb 8.8 L (10.1-14.3) gm/dl Hct 27.1 L (30.3-42.9) % MCV 81 (79-97) fl MCH 26 L (28-32) pg MCHC 33 (30-34) % RDW 14.6 (13.2-15.2) % Plt Count 255 (140-440) K/mm3 Lymph % (Auto) Bacteriologist Dairy Add Manual Diff Complete Total Counted 100 Seg Neuts % (Manual) 43.0 (40.0-70.0) % Band Neutrophils % 1.0 % Lymphocytes % (Manual) 49.0 H (13.4-35.0) % Reactive Lymphs % (Man) 0 % Monocytes % (Manual) 0 (0.0-7.3) % Eosinophils % (Manual) 4.0 (0.0-4.3) % Basophils % (Manual) 3.0 H (0.0-1.8) % Metamyelocytes % 0 % Myelocytes % 0 % Promyelocytes % 0 % Blast Cells % 0 % Nucleated RBC % Not Reportable Seg Neutrophils # Man 2.7 (1.8-7.7) K/mm3 Band Neutrophils # 0.1 K/mm3 Lymphocytes # (Manual) 3.0 (1.2-5.4) K/mm3 Abs React Lymphs (Man) 0.0 K/mm3 Monocytes # (Manual) 0.0 (0.0-0.8) K/mm3 Eosinophils # (Manual) 0.2 (0.0-0.4) K/mm3 Basophils # (Manual) 0.2 H (0.0-0.1) K/mm3 Metamyelocytes # 0.0 K/mm3 Myelocytes # 0.0 K/mm3 Promyelocytes # 0.0 K/mm3 Blast Cells # 0.0 K/mm3 WBC Morphology Not Reportable Hypersegmented Neuts Not Reportable Hyposegmented Neuts Not Reportable Hypogranular Neuts Not Reportable Smudge Cells Not Reportable Toxic Granulation Not Reportable Toxic Vacuolation Not Reportable Dohle Bodies Not Reportable Pelger-Huet Anomaly Not Reportable Fredrick Rods Not Reportable Platelet Estimate Consistent w auto Clumped Platelets Not Reportable Plt Clumps, EDTA Not Reportable Large Platelets Not Reportable Giant Platelets Not Reportable Platelet Satelliting Not Reportable Plt Morphology Comment Not Reportable RBC Morphology Normal Dimorphic RBCs Not Reportable Polychromasia Not Reportable Hypochromasia Not Reportable Poikilocytosis Not Reportable Anisocytosis Not Reportable Microcytosis Not Reportable Macrocytosis Not Reportable Spherocytes Not Reportable Pappenheimer Bodies Not Reportable Sickle Cells Not Reportable Target Cells Not Reportable Tear Drop Cells Not Reportable Ovalocytes Not Reportable Helmet Cells Not Reportable [place] Bodies Not Reportable Lafe Rings Not Reportable Lyle Cells Not Reportable Bite Cells Not Reportable Crenated Cell Not Reportable Elliptocytes Not Reportable Acanthocytes (Spur) Not Reportable Rouleaux Not Reportable Hemoglobin C Crystals Not Reportable Schistocytes Not Reportable Malaria parasites Not Reportable Jose Bodies Not Reportable Hem Pathologist Commnt No PT 12.1 L (12.2-14.9) Sec. INR 0.92 (0.87-1.13) APTT 36.9 H (24.2-36.6) Sec. Sodium 132 L (137-145) mmol/L Potassium 3.6 (3.6-5.0) mmol/L Chloride 92.4 L (98-107) mmol/L Carbon Dioxide 29 (22-30) mmol/L Anion Gap 14 mmol/L BUN 26 H (7-17) mg/dL Creatinine 1.4 H (0.7-1.2) mg/dL Estimated GFR 45 ml/min BUN/Creatinine Ratio 19 % Glucose 60 L (65-100) mg/dL Lactic Acid (0.7-2.0) mmol/L Calcium 8.6 (8.4-10.2) mg/dL Total Bilirubin 0.20 (0.1-1.2) mg/dL AST 185 H (5-40) units/L ALT 94 H (7-56) units/L Alkaline Phosphatase 146 H (35-129) units/L Total Protein 6.4 (6.3-8.2) g/dL Albumin 3.8 L (3.9-5) g/dL Albumin/Globulin Ratio 1.5 % 04/08/19 04/08/19 Range/Units 19:51 21:36 WBC (4.5-11.0) K/mm3 RBC (3.65-5.03) M/mm3 Hgb (10.1-14.3) gm/dl Hct (30.3-42.9) % MCV (79-97) fl MCH (28-32) pg MCHC (30-34) % RDW (13.2-15.2) % Plt Count (140-440) K/mm3 Lymph % (Auto) Add Manual Diff Total Counted Seg Neuts % (Manual) (40.0-70.0) % Band Neutrophils % % Lymphocytes % (Manual) (13.4-35.0) % Reactive Lymphs % (Man) % Monocytes % (Manual) (0.0-7.3) % Eosinophils % (Manual) (0.0-4.3) % Basophils % (Manual) (0.0-1.8) % Metamyelocytes % % Myelocytes % % Promyelocytes % % Blast Cells % % Nucleated RBC % Seg Neutrophils # Man (1.8-7.7) K/mm3 Band Neutrophils # K/mm3 Lymphocytes # (Manual) (1.2-5.4) K/mm3 Abs React Lymphs (Man) K/mm3 Monocytes # (Manual) (0.0-0.8) K/mm3 Eosinophils # (Manual) (0.0-0.4) K/mm3 Basophils # (Manual) (0.0-0.1) K/mm3 Metamyelocytes # K/mm3 Myelocytes # K/mm3 Promyelocytes # K/mm3 Blast Cells # K/mm3 WBC Morphology Hypersegmented Neuts Hyposegmented Neuts Hypogranular Neuts Smudge Cells Toxic Granulation Toxic Vacuolation Dohle Bodies Pelger-Huet Anomaly Fredrick Rods Platelet Estimate Clumped Platelets Plt Clumps, EDTA Large Platelets Giant Platelets Platelet Satelliting Plt Morphology Comment RBC Morphology Dimorphic RBCs Polychromasia Hypochromasia Poikilocytosis Anisocytosis Microcytosis Macrocytosis Spherocytes Pappenheimer Bodies Sickle Cells Target Cells Tear Drop Cells Ovalocytes Helmet Cells [place] Bodies Lafe Rings Fermin Cells Bite Cells Crenated Cell Elliptocytes Acanthocytes (Spur) Rouleaux Hemoglobin C Crystals Schistocytes Malaria parasites Jsoe Bodies Hem Pathologist Commnt PT (12.2-14.9) Sec. INR (0.87-1.13) APTT (24.2-36.6) Sec. Sodium (137-145) mmol/L Potassium (3.6-5.0) mmol/L Chloride (98-107) mmol/L Carbon Dioxide (22-30) mmol/L Anion Gap mmol/L BUN (7-17) mg/dL Creatinine (0.7-1.2) mg/dL Estimated GFR ml/min BUN/Creatinine Ratio % Glucose (65-100) mg/dL Lactic Acid 2.20 H* 1.60 (0.7-2.0) mmol/L Calcium (8.4-10.2) mg/dL Total Bilirubin (0.1-1.2) mg/dL AST (5-40) units/L ALT (7-56) units/L Alkaline Phosphatase (35-129) units/L Total Protein (6.3-8.2) g/dL Albumin (3.9-5) g/dL Albumin/Globulin Ratio % - Medical Decision Making Patient receive IV fluids and Decadron She also received fludocortisone Critical Care Time: Yes Critical care time in (mins) excluding proc time.: 45 Critical care attestation.: If time is entered above; I have spent that time in minutes in the direct care of this critically ill patient, excluding procedure time. ED Disposition Clinical Impression: Adrenal insufficiency, Adrenal insufficiency (Dante's disease) Disposition: OP ADMIT IP TO THIS HOSP Is pt being admited?: Yes Does the pt Need Aspirin: No Condition: Fair
[2019-04-08] MEDS ORDERED: ACETAMINOPHEN 325 MG TAB PO PRN (23:54)
[2019-04-08] MEDS ORDERED: DEXTROSE 50% IN WATER (25GM) 50 ML SYRINGE IV PRN (23:54)
--- NOTE | 2019-04-09 00:06 | History and Physical Report ---
History of Present Illness Chief complaint: Dizziness History of present illness: 28-year-old woman who presents to the hospital with dizziness hypotension. She reports having a history of [place]'s disease and periodically goes into crisis. She notes that she has been compliant with her medications and has not missed any doses. She denies fever, denies dysuria, denies cough or shortness of breath. Denies pain anywhere. Past Medical History: Insulin-dependent diabetes, hypothyroidism, renal failure, other ([place] disease ), depression, Past Surgical History: appendectomy, cholecystectomy, Social history: denies: smoking, alcohol abuse, prescription drug abuse, IV drug use Family history: no significant family history Medications and Allergies Allergies Allergy/AdvReac Type Severity Reaction Status Date / Time Penicillins Allergy Angioedema Verified 12/31/18 16:01 vortioxetine Allergy Unknown Verified 12/31/18 16:01 [From Trintellix] ziprasidone [From Geodon] Allergy Angioedema Verified 12/31/18 16:01 vancomycin AdvReac Itching Verified 12/31/18 16:01 Home Medications Medication Instructions Recorded Confirmed Last Taken Type Levothyroxine [Synthroid] 125 mcg PO DAILY #30 tablet 02/17/19 03/11/19 02/23/19 Rx Lispro Insulin [HumaLOG] 0 unit SUB-Q ACHS units 02/17/19 03/11/19 02/23/19 Rx Sertraline [Zoloft] 25 mg PO QDAY #30 tablet 02/17/19 03/11/19 02/23/19 Rx levETIRAcetam [Keppra TAB] 500 mg PO BID #60 tablet 02/17/19 03/11/19 02/23/19 Rx Fludrocortisone [Florinef] 0.1 mg PO QDAY #30 tablet 02/25/19 03/03/19 Unknown Rx Hydrocortisone [Cortef TAB] 10 mg PO QAM #30 tablet 02/25/19 03/11/19 Unknown Rx Nitrofurantoin [place]/M-Cryst 100 mg PO Q12HR #14 capsule 02/28/19 03/03/19 Unknown Rx [Macrobid CAP] Ondansetron [Zofran ODT TAB] 4 mg PO Q8HR PRN #20 tab.rapdis 02/28/19 03/03/19 Unknown Rx Hydrocortisone [Cortef TAB] 5 mg PO QPM #30 tablet 03/06/19 03/11/19 Unknown Rx Insulin Glargine [Lantus VIAL] 10 units SUB-Q BID #60 units 03/06/19 03/11/19 Unknown Rx Active Meds: Active Medications Acetaminophen (Tylenol) 650 mg PO Q4H PRN PRN Reason: Pain MILD(1-3)/Fever >100.5/STEWARD Dextrose (D50w (25gm) Syringe) 50 ml IV PRN PRN PRN Reason: Hypoglycemia Fludrocortisone Acetate (Florinef) 0.1 mg PO QDAY [facility] Sodium Chloride (Nacl 0.9% 1000 Ml) 1,000 mls @ 75 mls/hr IV DIRECT [facility] Levofloxacin/Dextrose (Levaquin 750mg/150ml) 750 mg in 150 mls @ 100 mls/hr IV Q48HR [facility]; Protocol Insulin Human Lispro (Humalog) 0 unit SUB-Q ACHS [facility]; Protocol Levetiracetam (Keppra) 500 mg PO BID [facility] Levothyroxine Sodium (Synthroid) 125 mcg PO DAILY@0600 [facility] Ondansetron HCl (Zofran) 4 mg IV Q8H PRN PRN Reason: Nausea And Vomiting Sertraline HCl (Zoloft) 25 mg PO QDAY [facility] Sodium Chloride (Sodium Chloride Flush Syringe 10 Ml) 10 ml IV BID [facility] Sodium Chloride (Sodium Chloride Flush Syringe 10 Ml) 10 ml IV PRN PRN PRN Reason: LINE FLUSH Review of Systems All systems: negative Constitutional: fatigue, weakness Ears, nose, mouth and throat: no ear pain Breasts: deferred Cardiovascular: no chest pain Respiratory: no cough Gastrointestinal: no abdominal pain Rectal: no pain Musculoskeletal: no neck stiffness Integumentary: no rash Neurological: burning pain, no head injury Psychiatric: no anxiety Endocrine: no cold intolerance Hematologic/Lymphatic: no easy bruising Allergic/Immunologic: no urticaria Exam - Constitutional Vitals: Temp Pulse Resp BP Pulse Ox 98 F 88 15 102/63 100 04/08/19 18:41 04/08/19 21:00 04/08/19 21:00 04/08/19 21:00 04/08/19 21:00 General appearance: Present: mild distress, well-nourished - EENT Eyes: Present: PERRL ENT: hearing intact, clear oral mucosa - Neck Neck: Present: supple, normal ROM - Respiratory Respiratory effort: normal Respiratory: bilateral: CTA - Cardiovascular Heart Sounds: Present: S1 & S2. Absent: rub, click - Extremities Extremities: pulses symmetrical, No edema Peripheral Pulses: within normal limits - Abdominal General gastrointestinal: Present: soft, non-tender, non-distended, normal bowel sounds Female genitourinary: Present: normal - Integumentary Integumentary: Present: clear, warm, dry - Musculoskeletal Musculoskeletal: gait normal, strength equal bilaterally - Psychiatric Psychiatric: appropriate mood/affect, intact judgment & insight - Neurologic Neurologic: CNII-XII intact, moves all extremities Results - Labs CBC & Chem 7: 04/08/19 19:51 04/08/19 19:51 Labs: Laboratory Last Values WBC 6.2 K/mm3 (4.5-11.0) 04/08/19 19:51 RBC 3.36 M/mm3 (3.65-5.03) L 04/08/19 19:51 Hgb 8.8 gm/dl (10.1-14.3) L 04/08/19 19:51 Hct 27.1 % (30.3-42.9) L 04/08/19 19:51 MCV 81 fl (79-97) 04/08/19 19:51 MCH 26 pg (28-32) L 04/08/19 19:51 MCHC 33 % (30-34) 04/08/19 19:51 RDW 14.6 % (13.2-15.2) 04/08/19 19:51 Plt Count 255 K/mm3 (140-440) 04/08/19 19:51 Lymph % (Auto) Recording Artist 04/08/19 19:51 Add Manual Diff Complete 04/08/19 19:51 Total Counted 100 04/08/19 19:51 Seg Neuts % (Manual) 43.0 % (40.0-70.0) 04/08/19 19:51 Band Neutrophils % 1.0 % 04/08/19 19:51 Lymphocytes % (Manual) 49.0 % (13.4-35.0) H 04/08/19 19:51 Reactive Lymphs % (Man) 0 % 04/08/19 19:51 Monocytes % (Manual) 0 % (0.0-7.3) 04/08/19 19:51 Eosinophils % (Manual) 4.0 % (0.0-4.3) 04/08/19 19:51 Basophils % (Manual) 3.0 % (0.0-1.8) H 04/08/19 19:51 Metamyelocytes % 0 % 04/08/19 19:51 Myelocytes % 0 % 04/08/19 19:51 Promyelocytes % 0 % 04/08/19 19:51 Blast Cells % 0 % 04/08/19 19:51 Nucleated RBC % Not Reportable 04/08/19 19:51 Seg Neutrophils # Man 2.7 K/mm3 (1.8-7.7) 04/08/19 19:51 Band Neutrophils # 0.1 K/mm3 04/08/19 19:51 Lymphocytes # (Manual) 3.0 K/mm3 (1.2-5.4) 04/08/19 19:51 Abs React Lymphs (Man) 0.0 K/mm3 04/08/19 19:51 Monocytes # (Manual) 0.0 K/mm3 (0.0-0.8) 04/08/19 19:51 Eosinophils # (Manual) 0.2 K/mm3 (0.0-0.4) 04/08/19 19:51 Basophils # (Manual) 0.2 K/mm3 (0.0-0.1) H 04/08/19 19:51 Metamyelocytes # 0.0 K/mm3 04/08/19 19:51 Myelocytes # 0.0 K/mm3 04/08/19 19:51 Promyelocytes # 0.0 K/mm3 04/08/19 19:51 Blast Cells # 0.0 K/mm3 04/08/19 19:51 WBC Morphology Not Reportable 04/08/19 19:51 Hypersegmented Neuts Not Reportable 04/08/19 19:51 Hyposegmented Neuts Not Reportable 04/08/19 19:51 Hypogranular Neuts Not Reportable 04/08/19 19:51 Smudge Cells Not Reportable 04/08/19 19:51 Toxic Granulation Not Reportable 04/08/19 19:51 Toxic Vacuolation Not Reportable 04/08/19 19:51 Dohle Bodies Not Reportable 04/08/19 19:51 Pelger-Huet Anomaly Not Reportable 04/08/19 19:51 Fredrick Rods Not Reportable 04/08/19 19:51 Platelet Estimate Consistent w auto 04/08/19 19:51 Clumped Platelets Not Reportable 04/08/19 19:51 Plt Clumps, EDTA Not Reportable 04/08/19 19:51 Large Platelets Not Reportable 04/08/19 19:51 Giant Platelets Not Reportable 04/08/19 19:51 Platelet Satelliting Not Reportable 04/08/19 19:51 Plt Morphology Comment Not Reportable 04/08/19 19:51 RBC Morphology Normal 04/08/19 19:51 Dimorphic RBCs Not Reportable 04/08/19 19:51 Polychromasia Not Reportable 04/08/19 19:51 Hypochromasia Not Reportable 04/08/19 19:51 Poikilocytosis Not Reportable 04/08/19 19:51 Anisocytosis Not Reportable 04/08/19 19:51 Microcytosis Not Reportable 04/08/19 19:51 Macrocytosis Not Reportable 04/08/19 19:51 Spherocytes Not Reportable 04/08/19 19:51 Pappenheimer Bodies Not Reportable 04/08/19 19:51 Sickle Cells Not Reportable 04/08/19 19:51 Target Cells Not Reportable 04/08/19 19:51 Tear Drop Cells Not Reportable 04/08/19 19:51 Ovalocytes Not Reportable 04/08/19 19:51 Helmet Cells Not Reportable 04/08/19 19:51 [place] Bodies Not Reportable 04/08/19 19:51 [place] Rings Not Reportable 04/08/19 19:51 Fermin Cells Not Reportable 04/08/19 19:51 Bite Cells Not Reportable 04/08/19 19:51 Crenated Cell Not Reportable 04/08/19 19:51 Elliptocytes Not Reportable 04/08/19 19:51 Acanthocytes (Spur) Not Reportable 04/08/19 19:51 Rouleaux Not Reportable 04/08/19 19:51 Hemoglobin C Crystals Not Reportable 04/08/19 19:51 Schistocytes Not Reportable 04/08/19 19:51 Malaria parasites Not Reportable 04/08/19 19:51 Jose Bodies Not Reportable 04/08/19 19:51 Hem Pathologist Commnt No 04/08/19 19:51 PT 12.1 Sec. (12.2-14.9) L 04/08/19 19:51 INR 0.92 (0.87-1.13) 04/08/19 19:51 APTT 36.9 Sec. (24.2-36.6) H 04/08/19 19:51 Sodium 132 mmol/L (137-145) L 04/08/19 19:51 Potassium 3.6 mmol/L (3.6-5.0) 04/08/19 19:51 Chloride 92.4 mmol/L (98-107) L 04/08/19 19:51 Carbon Dioxide 29 mmol/L (22-30) 04/08/19 19:51 Anion Gap 14 mmol/L 04/08/19 19:51 BUN 26 mg/dL (7-17) H 04/08/19 19:51 Creatinine 1.4 mg/dL (0.7-1.2) H 04/08/19 19:51 Estimated GFR 45 ml/min 04/08/19 19:51 BUN/Creatinine Ratio 19 % 04/08/19 19:51 Glucose 60 mg/dL (65-100) L 04/08/19 19:51 Lactic Acid 1.60 mmol/L (0.7-2.0) 04/08/19 21:36 Calcium 8.6 mg/dL (8.4-10.2) 04/08/19 19:51 Total Bilirubin 0.20 mg/dL (0.1-1.2) 04/08/19 19:51 AST 185 units/L (5-40) H 04/08/19 19:51 ALT 94 units/L (7-56) H 04/08/19 19:51 Alkaline Phosphatase 146 units/L (35-129) H 04/08/19 19:51 Total Protein 6.4 g/dL (6.3-8.2) 04/08/19 19:51 Albumin 3.8 g/dL (3.9-5) L 04/08/19 19:51 Albumin/Globulin Ratio 1.5 % 04/08/19 19:51 Assessment and Plan Assessment and plan: 28-year-old woman with history of [place]'s disease who presents with hypotension and dizziness consistent with adrenal crisis. Vital signs reveal low blood pressure which has improved since receiving steroids in the ER Labs show hemoglobin of 8.8, sodium of 132 chloride 92, BUN 26, creatinine 1.4, glucose 60, mild transaminitis AST 185 ALT 94 alk phosphatase 146, albumin 3.8, test negative, TSH 2.48 UA shows 42 white blood cells Chest x-ray no acute findings Adrenal crisis in a patient with known history of [place]'s disease -Patient having hyponatremia, hypotension, hypoglycemia IV hydrocortisone and fludrocortisone, likely brought on by infection UTI/sepsis IV antibiotics, obtain and follow-up urine cultures Type 2 diabetes, insulin-dependent Patient has been hypoglycemic, will recheck glucose, and give insulin sliding scale judiciously Acute kidney injury likely due to ATN IV fluids, nephrology consult Chronic anemia, stable monitor neuropathy; cont lyrica Seizures, continue home meds Hypothyroidism, TSH normal, continue Synthroid Depression; continue home meds DVT prophylaxis; SCDs and early ambulation VTE prophylaxis?: Mechanical
[2019-04-09] MEDS ORDERED: PREGABALIN 25 MG, PREGABALIN 75 MG PO SCH (03:00)
[2019-04-09] MEDS: PREGABALIN 25 MG CAP PO SCH ×3 (04:00→21:51)
[2019-04-09] MEDS: PREGABALIN 75 MG CAP PO SCH ×3 (04:03→21:51)
[2019-04-09] MEDS: SODIUM CHLORIDE 0.9% 1000 ML 1,000 ML IV SCH ×2 (04:11→17:14)
[2019-04-09 05:42] LABS: Basophils % (Auto) 0.5 % (0.0-1.8); Hematocrit 26.7 % (30.3-42.9); Hemoglobin 8.7 gm/dl (10.1-14.3); Lymphocytes # (Auto) 0.5 K/mm3 (1.2-5.4); Lymphocytes % (Auto) 16.2 % (13.4-35.0); Mean Corpuscular HGB Conc 33 % (30-34); Mean Corpuscular Volume 82 fl (79-97); Monocytes % (Auto) 0.7 % (0.0-7.3); Platelet Count 220 K/mm3 (140-440); Red Blood Count 3.25 M/mm3 (3.65-5.03); Red Cell Distribution Width 14.4 % (13.2-15.2)
[2019-04-09] MEDS: HYDROCORTISONE SOD SUCC 100 MG/2 ML VIAL IV SCH ×3 (06:02→21:51)
[2019-04-09 06:05] LABS: Calcium 7.8 mg/dL (8.4-10.2)
[2019-04-09] MEDS: LEVOTHYROXINE 125 MCG TAB PO SCH (06:05)
[2019-04-09 06:46] LABS: Bacteria,Urine 3+ /HPF (Negative); Bilirubin,Urine NEG (Negative); Blood,Urine SM (Negative); Color,Urine Yellow (Yellow); HCG Qualitative,Urine Negative (Negative); Mucus,Urine FEW /HPF; Protein,Urine <15 mg/dL mg/dL (Negative); Urobilinogen,Urine < 2.0 mg/dL (<2.0)
[2019-04-09] MEDS: INSULIN LISPRO 100 UNIT/ML SUB-Q SCH ×7 (09:15→22:01)
[2019-04-09] MEDS ORDERED: PREGABALIN 25 MG CAP PO SCH (10:00)
[2019-04-09] MEDS ORDERED: PREGABALIN 75 MG CAP PO SCH (10:00)
[2019-04-09] MEDS ORDERED: INSULIN GLARGINE 100 UNITS/ML SUB-Q SCH ×2 (10:00→22:00)
[2019-04-09] MEDS ORDERED: FLUDROCORTISONE 0.1 MG TAB PO SCH (10:00)
[2019-04-09] MEDS: FLUDROCORTISONE 0.1 MG TAB PO SCH (10:20)
[2019-04-09] MEDS: SERTRALINE 25 MG TAB PO SCH (10:20)
[2019-04-09] MEDS: levETIRAcetam 500 MG TAB PO SCH ×2 (10:20→21:51)
--- NOTE | 2019-04-09 10:41 | Consultation ---
History of Present Illness - Reason for Consult Consult date: 04/09/19 acute renal failure Requesting physician: SUE MCDANIEL - History of Present Illness 28-year-old lady with a history of type 1 diabetes mellitus since age 6, Davis's disease presents with dizziness/lightheadedness with hypotension. Patient has stopped once as she was getting off from her bed is had nausea and vomiting 5-6 times a day she's also had watery diarrhea. She's had numerous hos pitalizations with hyper or hypoglycemia but also at least 3 episodes of addisonian crisis since she was diagnosed a couple of years ago. Her creatinine during her last admission increased to 1.4 but by time of discharge was down to 1.2 mg/dL. This time the creatinine is 1.4 mg/dL. Blood pressure dropped to as low as 73/44 mmHg. I'm consulted to assist in managing the renal failure. Patient denies any voiding difficulties. No frequency, urgency, dysuria or hematuria. She's not been using any nonsteroidal anti-inflammatory drugs and has not been exposed to radiocontrast. No recent fever or rash. No history of kidney stones or recurrent infections. Past History Past Medical History: diabetes (Type 1), hypothyroidism, seizures, other ([place]'s disease, depression, celiac disease) Past Surgical History: appendectomy, cholecystectomy, (X 4), Other (right chest port) Social history: other (she lives in [place] [facility] [place]. 2 of her 4 children are alive). denies: smoking, alcohol abuse, prescription drug abuse, IV drug use Family history: other (is alive and well. Mother has systemic lupus erythematosus with chronic kidney disease. Brother is alive and in good health) Medications and Allergies Allergies Allergy/AdvReac Type Severity Reaction Status Date / Time Penicillins Allergy Angioedema Verified 12/31/18 16:01 vortioxetine Allergy Unknown Verified 12/31/18 16:01 [From Trintellix] ziprasidone [From Geodon] Allergy Angioedema Verified 12/31/18 16:01 vancomycin AdvReac Itching Verified 12/31/18 16:01 Home Medications Medication Instructions Recorded Confirmed Last Taken Type Levothyroxine [Synthroid] 125 mcg PO DAILY #30 tablet 02/17/19 04/09/19 04/08/19 Rx Lispro Insulin [HumaLOG] 0 unit SUB-Q ACHS units 02/17/19 04/09/19 04/08/19 Rx Sertraline [Zoloft] 25 mg PO QDAY #30 tablet 02/17/19 04/09/19 04/08/19 Rx levETIRAcetam [Keppra TAB] 500 mg PO BID #60 tablet 02/17/19 04/09/19 04/08/19 Rx Fludrocortisone [Florinef] 0.1 mg PO QDAY #30 tablet 02/25/19 04/09/19 04/08/19 Rx Hydrocortisone [Cortef TAB] 10 mg PO QAM #30 tablet 02/25/19 04/09/19 04/08/19 Rx Nitrofurantoin [place]/M-Cryst 100 mg PO Q12HR #14 capsule 02/28/19 04/09/19 04/08/19 Rx [Macrobid CAP] Ondansetron [Zofran ODT TAB] 4 mg PO Q8HR PRN #20 tab.rapdis 02/28/19 04/09/19 04/08/19 Rx Hydrocortisone [Cortef TAB] 5 mg PO QPM #30 tablet 03/06/19 04/09/19 04/08/19 Rx Insulin Glargine [Lantus VIAL] 10 units SUB-Q BID #60 units 03/06/19 04/09/19 04/08/19 Rx Active Meds: Active Medications Acetaminophen (Tylenol) 650 mg PO Q4H PRN PRN Reason: Pain MILD(1-3)/Fever >100.5/STEWARD Dextrose (D50w (25gm) Syringe) 50 ml IV PRN PRN PRN Reason: Hypoglycemia Fludrocortisone Acetate (Florinef) 0.2 mg PO QDAY [facility] Last Admin: 04/09/19 10:20 Dose: 0.2 mg Documented by: Hydrocortisone Sodium Succinate (Solu-Cortef) 100 mg IV Q8HR [facility] Last Admin: 04/09/19 06:02 Dose: 100 mg Documented by: Sodium Chloride (Nacl 0.9% 1000 Ml) 1,000 mls @ 75 mls/hr IV DIRECT [facility] Last Admin: 04/09/19 04:11 Dose: 75 mls/hr Documented by: Levofloxacin/Dextrose (Levaquin 750mg/150ml) 750 mg in 150 mls @ 100 mls/hr IV Q48HR [facility]; Protocol Last Admin: 04/09/19 10:18 Dose: 100 mls/hr Documented by: Insulin Glargine (Lantus) 10 units SUB-Q BID [facility] Last Admin: 04/09/19 10:19 Dose: 10 units Documented by: Insulin Human Lispro (Humalog) 0 unit SUB-Q ACHS [facility]; Protocol Last Admin: 04/09/19 09:15 Dose: 5 unit Documented by: Insulin Human Lispro (Humalog) 7 unit SUB-Q AC [facility] Last Admin: 04/09/19 09:17 Dose: 7 unit Documented by: Levetiracetam (Keppra) 500 mg PO BID [facility] Last Admin: 04/09/19 10:20 Dose: 500 mg Documented by: Levothyroxine Sodium (Synthroid) 125 mcg PO DAILY@0600 [facility] Last Admin: 04/09/19 06:05 Dose: 125 mcg Documented by: Ondansetron HCl (Zofran) 4 mg IV Q8H PRN PRN Reason: Nausea And Vomiting Pregabalin (Pregabalin) 25 mg PO BID [facility] Last Admin: 04/09/19 10:20 Dose: 25 mg Documented by: Pregabalin (Pregabalin) 75 mg PO BID [facility] Last Admin: 04/09/19 10:20 Dose: 75 mg Documented by: Sertraline HCl (Zoloft) 25 mg PO QDAY [facility] Last Admin: 04/09/19 10:20 Dose: 25 mg Documented by: Sodium Chloride (Sodium Chloride Flush Syringe 10 Ml) 10 ml IV BID [facility] Last Admin: 04/09/19 10:21 Dose: 10 ml Documented by: Sodium Chloride (Sodium Chloride Flush Syringe 10 Ml) 10 ml IV PRN PRN PRN Reason: LINE FLUSH Review of Systems All systems: negative (Constitutional: no fever but admits to chills. No anorexia or weight loss. HEENT: No sore throat or sinus drainage no hearing or vision impairment . Cardiovascular: His to occasional chest pain, associated with shortness of breath, no palpitations, but had some lower extremity swel ling. No dizziness. Respiratory: No cough, sputum, shortness of breath, hemoptysis or wheezing. Gastrointestinal: No nausea, vomiting, diarrhea, abdominal pain, hematemesis or melena. Genitourinary: No frequency urgency dysuria or hematuria. hematologic: No abnormal bleeding but admits to easy b ruising. Integumentary: no pruritus or rash. Neurological: As chronic migraine headache no focal weakness or numbness, no syncope or seizures. Musculoskeletal: No joint pains no stiffness. Psychiatry: Admits to both anxiety and depression.) Exam - Vital Signs Vital signs: Vital Signs Temp Pulse Resp BP Pulse Ox 98 F 80 18 80/56 100 04/08/19 18:41 04/08/19 18:41 04/08/19 18:41 04/08/19 18:41 04/08/19 18:41 - Physical Exam Narrative exam: Young White female lying in bed in no acute distress HEENT: NCAT, pink oral mucous membrane Neck: Supple, no venous distention CVS: S1S2 RRR with no murmur, rub or gallop Chest: Clear to auscultation Abdomen: Protuberant, soft, nontender, no organomegaly, bowel sounds are present Extremities: No edema genitourinary deferred Neuro: Awake, alert no focal deficits Results - Lab Results 04/09/19 Unknown 04/09/19 Unknown Most recent lab results Calcium 7.8 mg/dL (8.4-10.2) L 04/09/19 Unknown Assessment and Plan - Patient Problems (1) BRANDEE (acute kidney injury) Current Visit: No Status: Acute Plan to address problem: Vasomotor nephropathy secondary to hypotension. Kidney function is improving. Continue volume repletion. Up electrolytes and renal function (2) Hyponatremia Current Visit: No Status: Acute (3) Addisonian crisis Current Visit: Yes Status: Acute Plan to address problem: [place] getting intravenous fluids, IV steroids. Improving. Follow-up (4) Type 1 diabetes mellitus with diabetic chronic kidney disease Current Visit: Yes Status: Acute Plan to address problem: Sugar management by primary attending (5) Anemia in chronic kidney disease Current Visit: Yes Status: Acute Plan to address problem: Follow-up hemoglobin. Check iron stores. Supplement as indicated (6) Hypoglycemia Current Visit: No Status: Acute Plan to address problem: Blood sugar is now high. Blood sugar management by primary attending (7) Hypotension Current Visit: Yes Status: Acute Plan to address problem: Continue volume repletion. Blood pressure improving. Follow-up
[2019-04-09] MEDS: ONDANSETRON 4 MG/2 ML INJ IV PRN (17:14)
--- NOTE | 2019-04-09 17:52 | Progress Note ---
Assessment and Plan Assessment and plan: Patient is a 28-year-old woman with a history of type 1 diabetes mellitus since age 6, [place]'s disease, celiac disease, depression, hypothyroidism and seizure disorder who presents with dizziness/lightheadedness with hypotension. She believes that she is having another Adrenal Dante crisis, She is on florinef and Coritef. 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: Patient having hyponatremia, hypotension, hypoglycemia: IV hydrocortisone and fludrocortisone, likely brought on by infection Sepsis due to UTI: IV antibiotics, obtain and follow-up urine cultures Type 2 diabetes, insulin-dependent uncontrolled hyperglycemia: Patient has been hypoglycemic, will recheck glucose, and give insulin sliding scale judiciously Acute kidney injury likely due to ATN: IV fluids, nephrology consult Chronic anemia, stable: monitor cbc Neuropathy; cont lyrica Seizures, continue home meds Hypothyroidism, TSH normal, continue Synthroid Depression; continue home meds DVT prophylaxis: added sq heparin, watch for drop in h/h History Interval history: Patient was seen and examined. Follow-up on current diagnosis dizziness and hypotension. No overnight events reported to me. Patient denies any chest pain, shortness breath, nausea/vomiting or severe headaches. Imaging, nursing note, chart, labs and old chart reviewed. Discussed with patient. Hospitalist Physical - Physical exam Narrative exam: Gen: WDWN, NAD, Awake, Alert, Orientated HEENT: NCAT, EOMI, PERRL, OP Clear Neck: supple, no adenopathy, no thyromegaly, no JVD CVS/Heart: RRR, normal S1S2, pulses present bilaterally Chest/Lungs: CTA B, Symmetrical chest expansion, good air entry bilaterally GI/Abdomen: soft, NTND, good bowel sounds, no guarding or rebound /Bladder: no suprapubic tenderness, no CVA or paraspinal tenderness Extermity/Skin: no c/c/e, no obvious rash MSK: FROM x 4 Neuro: CN 2-12 grossly intact, no new focal deficits Psych: calm - Constitutional Vitals: Temp Pulse Resp BP Pulse Ox 98.3 F 91 H 16 106/73 99 04/09/19 16:46 04/09/19 16:46 04/09/19 16:46 04/09/19 16:46 04/09/19 16:46 General appearance: Present: well-nourished. Absent: mild distress Results - Labs CBC & Chem 7: 04/09/19 Unknown 04/09/19 Unknown Labs: Laboratory Last Values WBC 2.9 K/mm3 (4.5-11.0) L 04/09/19 Unknown RBC 3.25 M/mm3 (3.65-5.03) L 04/09/19 Unknown Hgb 8.7 gm/dl (10.1-14.3) L 04/09/19 Unknown Hct 26.7 % (30.3-42.9) L 04/09/19 Unknown MCV 82 fl (79-97) 04/09/19 Unknown MCH 27 pg (28-32) L 04/09/19 Unknown MCHC 33 % (30-34) 04/09/19 Unknown RDW 14.4 % (13.2-15.2) 04/09/19 Unknown Plt Count 220 K/mm3 (140-440) 04/09/19 Unknown Lymph % (Auto) 16.2 % (13.4-35.0) 04/09/19 Unknown [place] % (Auto) 0.7 % (0.0-7.3) 04/09/19 Unknown Eos % (Auto) 0.0 % (0.0-4.3) 04/09/19 Unknown Baso % (Auto) 0.5 % (0.0-1.8) 04/09/19 Unknown Lymph # 0.5 K/mm3 (1.2-5.4) L 04/09/19 Unknown [place]ier # 0.0 K/mm3 (0.0-0.8) 04/09/19 Unknown Eos # 0.0 K/mm3 (0.0-0.4) 04/09/19 Unknown Baso # 0.0 K/mm3 (0.0-0.1) 04/09/19 Unknown Add Manual Diff Complete 04/08/19 19:51 Total Counted 100 04/08/19 19:51 Seg Neutrophils % 82.6 % (40.0-70.0) H 04/09/19 Unknown Seg Neuts % (Manual) 43.0 % (40.0-70.0) 04/08/19 19:51 Band Neutrophils % 1.0 % 04/08/19 19:51 Lymphocytes % (Manual) 49.0 % (13.4-35.0) H 04/08/19 19:51 Reactive Lymphs % (Man) 0 % 04/08/19 19:51 Monocytes % (Manual) 0 % (0.0-7.3) 04/08/19 19:51 Eosinophils % (Manual) 4.0 % (0.0-4.3) 04/08/19 19:51 Basophils % (Manual) 3.0 % (0.0-1.8) H 04/08/19 19:51 Metamyelocytes % 0 % 04/08/19 19:51 Myelocytes % 0 % 04/08/19 19:51 Promyelocytes % 0 % 04/08/19 19:51 Blast Cells % 0 % 04/08/19 19:51 Nucleated RBC % Not Reportable 04/08/19 19:51 Seg Neutrophils # 2.4 K/mm3 (1.8-7.7) 04/09/19 Unknown Seg Neutrophils # Man 2.7 K/mm3 (1.8-7.7) 04/08/19 19:51 Band Neutrophils # 0.1 K/mm3 04/08/19 19:51 Lymphocytes # (Manual) 3.0 K/mm3 (1.2-5.4) 04/08/19 19:51 Abs React Lymphs (Man) 0.0 K/mm3 04/08/19 19:51 Monocytes # (Manual) 0.0 K/mm3 (0.0-0.8) 04/08/19 19:51 Eosinophils # (Manual) 0.2 K/mm3 (0.0-0.4) 04/08/19 19:51 Basophils # (Manual) 0.2 K/mm3 (0.0-0.1) H 04/08/19 19:51 Metamyelocytes # 0.0 K/mm3 04/08/19 19:51 Myelocytes # 0.0 K/mm3 04/08/19 19:51 Promyelocytes # 0.0 K/mm3 04/08/19 19:51 Blast Cells # 0.0 K/mm3 04/08/19 19:51 WBC Morphology Not Reportable 04/08/19 19:51 Hypersegmented Neuts Not Reportable 04/08/19 19:51 Hyposegmented Neuts Not Reportable 04/08/19 19:51 Hypogranular Neuts Not Reportable 04/08/19 19:51 Smudge Cells Not Reportable 04/08/19 19:51 Toxic Granulation Not Reportable 04/08/19 19:51 Toxic Vacuolation Not Reportable 04/08/19 19:51 Dohle Bodies Not Reportable 04/08/19 19:51 Pelger-Huet Anomaly Not Reportable 04/08/19 19:51 Fredrick Rods Not Reportable 04/08/19 19:51 Platelet Estimate Consistent w auto 04/08/19 19:51 Clumped Platelets Not Reportable 04/08/19 19:51 Plt Clumps, EDTA Not Reportable 04/08/19 19:51 Large Platelets Not Reportable 04/08/19 19:51 Giant Platelets Not Reportable 04/08/19 19:51 Platelet Satelliting Not Reportable 04/08/19 19:51 Plt Morphology Comment Not Reportable 04/08/19 19:51 RBC Morphology Normal 04/08/19 19:51 Dimorphic RBCs Not Reportable 04/08/19 19:51 Polychromasia Not Reportable 04/08/19 19:51 Hypochromasia Not Reportable 04/08/19 19:51 Poikilocytosis Not Reportable 04/08/19 19:51 Anisocytosis Not Reportable 04/08/19 19:51 Microcytosis Not Reportable 04/08/19 19:51 Macrocytosis Not Reportable 04/08/19 19:51 Spherocytes Not Reportable 04/08/19 19:51 Pappenheimer Bodies Not Reportable 04/08/19 19:51 Sickle Cells Not Reportable 04/08/19 19:51 Target Cells Not Reportable 04/08/19 19:51 Tear Drop Cells Not Reportable 04/08/19 19:51 Ovalocytes Not Reportable 04/08/19 19:51 Helmet Cells Not Reportable 04/08/19 19:51 Lind-Latimer Bodies Not Reportable 04/08/19 19:51 [place] Rings Not Reportable 04/08/19 19:51 Fermin Cells Not Reportable 04/08/19 19:51 Bite Cells Not Reportable 04/08/19 19:51 Crenated Cell Not Reportable 04/08/19 19:51 Elliptocytes Not Reportable 04/08/19 19:51 Acanthocytes (Spur) Not Reportable 04/08/19 19:51 Rouleaux Not Reportable 04/08/19 19:51 Hemoglobin C Crystals Not Reportable 04/08/19 19:51 Schistocytes Not Reportable 04/08/19 19:51 Malaria parasites Not Reportable 04/08/19 19:51 Jose Bodies Not Reportable 04/08/19 19:51 Hem Pathologist Commnt No 04/08/19 19:51 PT 12.1 Sec. (12.2-14.9) L 04/08/19 19:51 INR 0.92 (0.87-1.13) 04/08/19 19:51 APTT 36.9 Sec. (24.2-36.6) H 04/08/19 19:51 Sodium 131 mmol/L (137-145) L 04/09/19 Unknown Potassium 4.8 mmol/L (3.6-5.0) D 04/09/19 Unknown Chloride 97.5 mmol/L (98-107) L 04/09/19 Unknown Carbon Dioxide 21 mmol/L (22-30) L D 04/09/19 Unknown Anion Gap 17 mmol/L 04/09/19 Unknown BUN 24 mg/dL (7-17) H 04/09/19 Unknown Creatinine 1.2 mg/dL (0.7-1.2) 04/09/19 Unknown Estimated GFR 53 ml/min 04/09/19 Unknown BUN/Creatinine Ratio 20 % 04/09/19 Unknown Glucose 418 mg/dL (65-100) H 04/09/19 Unknown POC Glucose 283 (70-105) H 04/09/19 15:50 Hemoglobin A1c 12.1 % (4-6) H 04/08/19 19:51 Lactic Acid 1.60 mmol/L (0.7-2.0) 04/08/19 21:36 Calcium 7.8 mg/dL (8.4-10.2) L 04/09/19 Unknown Total Bilirubin 0.20 mg/dL (0.1-1.2) 04/08/19 19:51 AST 185 units/L (5-40) H 04/08/19 19:51 ALT 94 units/L (7-56) H 04/08/19 19:51 Alkaline Phosphatase 146 units/L (35-129) H 04/08/19 19:51 Total Protein 6.4 g/dL (6.3-8.2) 04/08/19 19:51 Albumin 3.8 g/dL (3.9-5) L 04/08/19 19:51 Albumin/Globulin Ratio 1.5 % 04/08/19 19:51 Urine Color Yellow (Yellow) 04/09/19 06:00 Urine Turbidity Cloudy (Clear) 04/09/19 06:00 Urine pH 5.0 (5.0-7.0) 04/09/19 06:00 Ur Specific [place] 1.007 (1.003-1.030) 04/09/19 06:00 Urine Protein <15 mg/dl mg/dL (Negative) 04/09/19 06:00 Urine Glucose (UA) >=500 mg/dL (Negative) 04/09/19 06:00 Urine Ketones Tr mg/dL (Negative) 04/09/19 06:00 Urine Blood Sm (Negative) 04/09/19 06:00 Urine Nitrite Neg (Negative) 04/09/19 06:00 Urine Bilirubin Neg (Negative) 04/09/19 06:00 Urine Urobilinogen < 2.0 mg/dL (<2.0) 04/09/19 06:00 Ur Leukocyte Esterase Lg (Negative) 04/09/19 06:00 Urine WBC (Auto) 81.0 /HPF (0.0-6.0) H 04/09/19 06:00 Urine RBC (Auto) 6.0 /HPF (0.0-6.0) 04/09/19 06:00 U Epithel Cells (Auto) 4.0 /HPF (0-13.0) 04/09/19 06:00 Urine Bacteria (Auto) 3+ /HPF (Negative) 04/09/19 06:00 Urine Mucus Few /HPF 04/09/19 06:00 Urine HCG, Qual Negative (Negative) 04/09/19 06:00 Active Medications - Current Medications Current Medications: Generic Name Dose Route Start Last Admin Trade Name Freq PRN Reason Stop Dose Admin Acetaminophen 650 mg 04/08/19 23:54 Tylenol PO Q4H PRN Pain MILD(1-3)/Fever >100.5/STEWARD Dextrose 50 ml 04/08/19 23:54 D50w (25gm) Syringe IV PRN PRN Hypoglycemia Fludrocortisone Acetate 0.2 mg 04/09/19 10:00 04/09/19 10:20 Florinef PO 0.2 mg QDAY MARINO Administration Hydrocortisone Sodium Succinate 100 mg 04/09/19 06:00 04/09/19 14:39 Solu-Cortef IV 100 mg Q8HR MARINO Administration Sodium Chloride 1,000 mls @ 75 mls/hr 04/08/19 23:45 04/09/19 17:14 Nacl 0.9% 1000 Ml IV 75 mls/hr DIRECT MARINO Administration Levofloxacin/Dextrose 750 mg in 150 mls @ 100 mls/hr 04/09/19 10:00 04/09/19 10:18 Levaquin 750mg/150ml IV 100 mls/hr Q48HR MARINO Administration Protocol Insulin Glargine 10 units 04/09/19 10:00 04/09/19 10:19 Lantus SUB-Q 10 units BID MARINO Administration Insulin Human Lispro 0 unit 04/09/19 07:30 04/09/19 17:08 Humalog SUB-Q 3 unit ACHS MARINO Administration Protocol Insulin Human Lispro 7 unit 04/09/19 07:30 04/09/19 17:09 Humalog SUB-Q 7 unit AC MARINO Administration Levetiracetam 500 mg 04/09/19 10:00 04/09/19 10:20 Keppra PO 500 mg BID MARINO Administration Levothyroxine Sodium 125 mcg 04/09/19 06:00 04/09/19 06:05 Synthroid PO 125 mcg DAILY@0600 MARINO Administration Ondansetron HCl 4 mg 04/08/19 23:54 04/09/19 17:14 Zofran IV 4 mg Q8H PRN Administration Nausea And Vomiting Pregabalin 25 mg 04/09/19 04:00 04/09/19 10:20 Pregabalin PO 25 mg BID MARINO Administration Pregabalin 75 mg 04/09/19 04:00 04/09/19 10:20 Pregabalin PO 75 mg BID MARINO Administration Sertraline HCl 25 mg 04/09/19 10:00 04/09/19 10:20 Zoloft PO 25 mg QDAY MARINO Administration Sodium Chloride 10 ml 04/09/19 10:00 04/09/19 10:21 Sodium Chloride Flush Syringe 10 Ml IV 10 ml BID MARINO Administration Sodium Chloride 10 ml 04/08/19 23:54 Sodium Chloride Flush Syringe 10 Ml IV PRN PRN LINE FLUSH Nutrition/Malnutrition Assess - Dietary Evaluation Nutrition/Malnutrition Findings: Nutrition Notes Start: 04/09/19 15:29 Freq: Status: Active Protocol: Document 04/09/19 15:29 AP (Rec: 04/09/19 15:50 AP [id number]) Co-Sign 04/09/19 15:29 Nutrition Notes Need for Assessment generated from: MD Order,Education Initial or Follow up Brief Note Current Diagnosis Diabetes Other Pertinent Diagnosis Dante's disease, Hypothyroidism Current Diet Regular Labs/Tests BG 418 A1c 12.1 BUN 24 Ca 7.8 Cl 97.5 Pertinent Medications Reviewed Height 4 ft 11 in Weight 67 kg [place] Body Weight (kg) 43.18 BMI 29.8 Intake Prior to Admission Fair Weight Status Overweight Subjective/Other Information Pt screened for new onset of DM. Pt states she has been diabetic for 22 years. States she eats six small meals a day , drinks diet beverages ( Powerade/Gatorade/Soda). Pt also states her DM is "very hard to control" and is waiting for an insulin pump ( [employer]) and as soon as her antibodies and BG levels are tested for "3 months" which is coming to an end soon, she will get her pump and constant BG monitor. Pt will bolus depending on meals and does CHO counting and aims for 30- 45g CHO per meal with a 1:10 ratio. Burn Absent Trauma Absent Current % PO Fair (50-74%) Minimum of two criteria No #1 Nutrition Diagnosis Food and nutrition-related knowledge deficit Etiology Pt unaware of starks to control BG levels. Pt also thinks her DM is too hard to control. As Evidenced by Signs and Symptoms A1c 13 Diagnosis Progress(for reassessment Resolved documentation) Is patient on ventilator? No Is Patient Ambulatory and/or Out of Bed Yes REE-([place]-St. Jeor-ambulatory/OOB) [ [id number] [id number]] Calculation Used for Recommendations [facility] Additional Notes PRO 53-67g/day (0.8-1g/kg) Fluid: 1ml/kcal or per MD Nutrition Intervention Change Diet Order: CHO consistent diet Teaching Recipient Patient Learning Readiness Good Teaching Methods Discussion Response to Teaching Verbalize understanding Barriers to Learning No Barriers Goal #1 Pt to follow consistent CHO diet. Anticipated Discharge Needs: Consistent CHO Revisit per MD consult or patient Sign Off request:
[2019-04-09] MEDS: INSULIN GLARGINE 100 UNITS/ML SUB-Q SCH (21:57)
[2019-04-10] MEDS: LEVOTHYROXINE 125 MCG TAB PO SCH (06:28)
[2019-04-10] MEDS: HYDROCORTISONE SOD SUCC 100 MG/2 ML VIAL IV SCH ×3 (06:29→21:27)
[2019-04-10] MEDS: SODIUM CHLORIDE 0.9% 1000 ML 1,000 ML IV SCH (06:30)
[2019-04-10 08:33] LABS: Hematocrit 24.4 % (30.3-42.9); Hemoglobin 7.9 gm/dl (10.1-14.3); Mean Corpuscular HGB Conc 32 % (30-34); Mean Corpuscular Volume 82 fl (79-97); Platelet Count 243 K/mm3 (140-440); Red Blood Count 2.99 M/mm3 (3.65-5.03); Red Cell Distribution Width 14.7 % (13.2-15.2)
[2019-04-10 08:49] LABS: Albumin 3.5 g/dL (3.9-5); Calcium 7.7 mg/dL (8.4-10.2)
[2019-04-10] MEDS: INSULIN LISPRO 100 UNIT/ML SUB-Q SCH ×7 (09:09→22:38)
[2019-04-10] MEDS: PREGABALIN 25 MG CAP PO SCH ×2 (10:26→21:26)
[2019-04-10] MEDS: levETIRAcetam 500 MG TAB PO SCH ×2 (10:26→21:27)
[2019-04-10] MEDS: FLUDROCORTISONE 0.1 MG TAB PO SCH (10:26)
[2019-04-10] MEDS: PREGABALIN 75 MG CAP PO SCH ×2 (10:27→21:27)
[2019-04-10] MEDS: SERTRALINE 25 MG TAB PO SCH (10:27)
--- NOTE | 2019-04-10 16:41 | Progress Note ---
Assessment and Plan Assessment and plan: Patient is a 28-year-old woman with a history of type 1 diabetes mellitus since age 6, Clinch's disease, celiac disease, depression, hypothyroidism and seizure disorder who presents with dizziness/lightheadedness with hypotension. She believes that she is having another Adrenal Dante crisis, She is on florinef and Coritef. 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: Patient having hyponatremia, hypotension, hypoglycemia, IV hydrocortisone and fludrocortisone, likely brought on by infection Sepsis due to UTI: IV antibiotics, obtain and follow-up urine cultures Type 2 diabetes, insulin-dependent uncontrolled hyperglycemia: Patient has been hypoglycemic, will recheck glucose, and give insulin sliding scale judiciously Acute kidney injury likely due to ATN: IV fluids, nephrology consult Chronic anemia, stable: monitor cbc Neuropathy: cont lyrica Seizures, continue home meds Hypothyroidism, TSH normal, continue Synthroid Depression; continue home meds DVT prophylaxis: added sq heparin, watch for drop in h/h Hemoglobin continue to drop, will repeat cbc in am start to taper steroids on day 2. start to wean down NSS IVFs History Interval history: Patient was seen and examined. Follow-up on current diagnosis dizziness and hypotension. No overnight events reported to me. Patient denies any chest pain, shortness breath, nausea/vomiting or severe headaches. Imaging, nursing note, chart, labs and old chart reviewed. Discussed with patient. Hospitalist Physical - Physical exam Narrative exam: Gen: WDWN, NAD, Awake, Alert, Orientated HEENT: NCAT, EOMI, PERRL, OP Clear Neck: supple, no adenopathy, no thyromegaly, no JVD CVS/Heart: RRR, normal S1S2, pulses present bilaterally Chest/Lungs: CTA B, Symmetrical chest expansion, good air entry bilaterally GI/Abdomen: soft, NTND, good bowel sounds, no guarding or rebound /Bladder: no suprapubic tenderness, no CVA or paraspinal tenderness Extermity/Skin: no c/c/e, no obvious rash MSK: FROM x 4 Neuro: CN 2-12 grossly intact, no new focal deficits Psych: calm - Constitutional Vitals: Temp Pulse Resp BP Pulse Ox 98.0 F 95 H 16 97/69 96 04/10/19 16:07 04/10/19 16:07 04/10/19 16:07 04/10/19 16:07 04/10/19 16:07 General appearance: Present: well-nourished. Absent: mild distress Results - Labs CBC & Chem 7: 04/10/19 06:37 04/10/19 06:37 Labs: Laboratory Last Values WBC 7.7 K/mm3 (4.5-11.0) 04/10/19 06:37 RBC 2.99 M/mm3 (3.65-5.03) L 04/10/19 06:37 Hgb 7.9 gm/dl (10.1-14.3) L 04/10/19 06:37 Hct 24.4 % (30.3-42.9) L 04/10/19 06:37 MCV 82 fl (79-97) 04/10/19 06:37 MCH 26 pg (28-32) L 04/10/19 06:37 MCHC 32 % (30-34) 04/10/19 06:37 RDW 14.7 % (13.2-15.2) 04/10/19 06:37 Plt Count 243 K/mm3 (140-440) 04/10/19 06:37 Lymph % (Auto) 16.2 % (13.4-35.0) 04/09/19 Unknown [place] % (Auto) 0.7 % (0.0-7.3) 04/09/19 Unknown Eos % (Auto) 0.0 % (0.0-4.3) 04/09/19 Unknown Baso % (Auto) 0.5 % (0.0-1.8) 04/09/19 Unknown Lymph # 0.5 K/mm3 (1.2-5.4) L 04/09/19 Unknown [place] # 0.0 K/mm3 (0.0-0.8) 04/09/19 Unknown Eos # 0.0 K/mm3 (0.0-0.4) 04/09/19 Unknown Baso # 0.0 K/mm3 (0.0-0.1) 04/09/19 Unknown Add Manual Diff Complete 04/08/19 19:51 Total Counted 100 04/08/19 19:51 Seg Neutrophils % 82.6 % (40.0-70.0) H 04/09/19 Unknown Seg Neuts % (Manual) 43.0 % (40.0-70.0) 04/08/19 19:51 Band Neutrophils % 1.0 % 04/08/19 19:51 Lymphocytes % (Manual) 49.0 % (13.4-35.0) H 04/08/19 19:51 Reactive Lymphs % (Man) 0 % 04/08/19 19:51 Monocytes % (Manual) 0 % (0.0-7.3) 04/08/19 19:51 Eosinophils % (Manual) 4.0 % (0.0-4.3) 04/08/19 19:51 Basophils % (Manual) 3.0 % (0.0-1.8) H 04/08/19 19:51 Metamyelocytes % 0 % 04/08/19 19:51 Myelocytes % 0 % 04/08/19 19:51 Promyelocytes % 0 % 04/08/19 19:51 Blast Cells % 0 % 04/08/19 19:51 Nucleated RBC % Not Reportable 04/08/19 19:51 Seg Neutrophils # 2.4 K/mm3 (1.8-7.7) 04/09/19 Unknown Seg Neutrophils # Man 2.7 K/mm3 (1.8-7.7) 04/08/19 19:51 Band Neutrophils # 0.1 K/mm3 04/08/19 19:51 Lymphocytes # (Manual) 3.0 K/mm3 (1.2-5.4) 04/08/19 19:51 Abs React Lymphs (Man) 0.0 K/mm3 04/08/19 19:51 Monocytes # (Manual) 0.0 K/mm3 (0.0-0.8) 04/08/19 19:51 Eosinophils # (Manual) 0.2 K/mm3 (0.0-0.4) 04/08/19 19:51 Basophils # (Manual) 0.2 K/mm3 (0.0-0.1) H 04/08/19 19:51 Metamyelocytes # 0.0 K/mm3 04/08/19 19:51 Myelocytes # 0.0 K/mm3 04/08/19 19:51 Promyelocytes # 0.0 K/mm3 04/08/19 19:51 Blast Cells # 0.0 K/mm3 04/08/19 19:51 WBC Morphology Not Reportable 04/08/19 19:51 Hypersegmented Neuts Not Reportable 04/08/19 19:51 Hyposegmented Neuts Not Reportable 04/08/19 19:51 Hypogranular Neuts Not Reportable 04/08/19 19:51 Smudge Cells Not Reportable 04/08/19 19:51 Toxic Granulation Not Reportable 04/08/19 19:51 Toxic Vacuolation Not Reportable 04/08/19 19:51 Dohle Bodies Not Reportable 04/08/19 19:51 Pelger-Huet Anomaly Not Reportable 04/08/19 19:51 Fredrick Rods Not Reportable 04/08/19 19:51 Platelet Estimate Consistent w auto 04/08/19 19:51 Clumped Platelets Not Reportable 04/08/19 19:51 Plt Clumps, EDTA Not Reportable 04/08/19 19:51 Large Platelets Not Reportable 04/08/19 19:51 Giant Platelets Not Reportable 04/08/19 19:51 Platelet Satelliting Not Reportable 04/08/19 19:51 Plt Morphology Comment Not Reportable 04/08/19 19:51 RBC Morphology Normal 04/08/19 19:51 Dimorphic RBCs Not Reportable 04/08/19 19:51 Polychromasia Not Reportable 04/08/19 19:51 Hypochromasia Not Reportable 04/08/19 19:51 Poikilocytosis Not Reportable 04/08/19 19:51 Anisocytosis Not Reportable 04/08/19 19:51 Microcytosis Not Reportable 04/08/19 19:51 Macrocytosis Not Reportable 04/08/19 19:51 Spherocytes Not Reportable 04/08/19 19:51 Pappenheimer Bodies Not Reportable 04/08/19 19:51 Sickle Cells Not Reportable 04/08/19 19:51 Target Cells Not Reportable 04/08/19 19:51 Tear Drop Cells Not Reportable 04/08/19 19:51 Ovalocytes Not Reportable 04/08/19 19:51 Helmet Cells Not Reportable 04/08/19 19:51 Lind-Gattman Bodies Not Reportable 04/08/19 19:51 [place] Rings Not Reportable 04/08/19 19:51 Fermin Cells Not Reportable 04/08/19 19:51 Bite Cells Not Reportable 04/08/19 19:51 Crenated Cell Not Reportable 04/08/19 19:51 Elliptocytes Not Reportable 04/08/19 19:51 Acanthocytes (Spur) Not Reportable 04/08/19 19:51 Rouleaux Not Reportable 04/08/19 19:51 Hemoglobin C Crystals Not Reportable 04/08/19 19:51 Schistocytes Not Reportable 04/08/19 19:51 Malaria parasites Not Reportable 04/08/19 19:51 Jose Bodies Not Reportable 04/08/19 19:51 Hem Pathologist Commnt No 04/08/19 19:51 PT 12.1 Sec. (12.2-14.9) L 04/08/19 19:51 INR 0.92 (0.87-1.13) 04/08/19 19:51 APTT 36.9 Sec. (24.2-36.6) H 04/08/19 19:51 Sodium 140 mmol/L (137-145) D 04/10/19 06:37 Potassium 4.0 mmol/L (3.6-5.0) 04/10/19 06:37 Chloride 104.4 mmol/L (98-107) 04/10/19 06:37 Carbon Dioxide 21 mmol/L (22-30) L 04/10/19 06:37 Anion Gap 19 mmol/L 04/10/19 06:37 BUN 20 mg/dL (7-17) H 04/10/19 06:37 Creatinine 1.3 mg/dL (0.7-1.2) H 04/10/19 06:37 Estimated GFR 49 ml/min 04/10/19 06:37 BUN/Creatinine Ratio 15 % 04/10/19 06:37 Glucose 306 mg/dL (65-100) H 04/10/19 06:37 POC Glucose 379 (70-105) H 04/10/19 12:36 Hemoglobin A1c 12.1 % (4-6) H 04/08/19 19:51 Lactic Acid 1.60 mmol/L (0.7-2.0) 04/08/19 21:36 Calcium 7.7 mg/dL (8.4-10.2) L 04/10/19 06:37 Total Bilirubin 0.20 mg/dL (0.1-1.2) 04/10/19 06:37 AST 85 units/L (5-40) H 04/10/19 06:37 ALT 62 units/L (7-56) H 04/10/19 06:37 Alkaline Phosphatase 116 units/L (35-129) 04/10/19 06:37 Total Protein 5.5 g/dL (6.3-8.2) L 04/10/19 06:37 Albumin 3.5 g/dL (3.9-5) L 04/10/19 06:37 Albumin/Globulin Ratio 1.8 % 04/10/19 06:37 Urine Color Yellow (Yellow) 04/09/19 06:00 Urine Turbidity Cloudy (Clear) 04/09/19 06:00 Urine pH 5.0 (5.0-7.0) 04/09/19 06:00 Ur Specific [place] 1.007 (1.003-1.030) 04/09/19 06:00 Urine Protein <15 mg/dl mg/dL (Negative) 04/09/19 06:00 Urine Glucose (UA) >=500 mg/dL (Negative) 04/09/19 06:00 Urine Ketones Tr mg/dL (Negative) 04/09/19 06:00 Urine Blood Sm (Negative) 04/09/19 06:00 Urine Nitrite Neg (Negative) 04/09/19 06:00 Urine Bilirubin Neg (Negative) 04/09/19 06:00 Urine Urobilinogen < 2.0 mg/dL (<2.0) 04/09/19 06:00 Ur Leukocyte Esterase Lg (Negative) 04/09/19 06:00 Urine WBC (Auto) 81.0 /HPF (0.0-6.0) H 04/09/19 06:00 Urine RBC (Auto) 6.0 /HPF (0.0-6.0) 04/09/19 06:00 U Epithel Cells (Auto) 4.0 /HPF (0-13.0) 04/09/19 06:00 Urine Bacteria (Auto) 3+ /HPF (Negative) 04/09/19 06:00 Urine Mucus Few /HPF 04/09/19 06:00 Urine HCG, Qual Negative (Negative) 04/09/19 06:00 Active Medications - Current Medications Current Medications: Generic Name Dose Route Start Last Admin Trade Name Freq PRN Reason Stop Dose Admin Acetaminophen 650 mg 04/08/19 23:54 Tylenol PO Q4H PRN Pain MILD(1-3)/Fever >100.5/STEWARD Dextrose 50 ml 04/08/19 23:54 D50w (25gm) Syringe IV PRN PRN Hypoglycemia Fludrocortisone Acetate 0.2 mg 04/09/19 10:00 04/10/19 10:26 Florinef PO 0.2 mg QDAY MARINO Administration Heparin Sodium (Porcine) 5,000 unit 04/10/19 22:00 Heparin SUB-Q Q12HR MARINO Hydrocortisone Sodium Succinate 100 mg 04/09/19 06:00 04/10/19 14:20 Solu-Cortef IV 100 mg Q8HR MARINO Administration Sodium Chloride 1,000 mls @ 75 mls/hr 04/08/19 23:45 04/10/19 06:30 Nacl 0.9% 1000 Ml IV 75 mls/hr DIRECT MARINO Administration Levofloxacin/Dextrose 750 mg in 150 mls @ 100 mls/hr 04/10/19 10:00 04/10/19 10:27 Levaquin 750mg/150ml IV 100 mls/hr Q24HR MARINO Administration Protocol Insulin Glargine 10 units 04/09/19 22:00 04/09/19 21:57 Lantus SUB-Q Not Given QHS MARINO Insulin Human Lispro 0 unit 04/09/19 07:30 04/10/19 13:15 Humalog SUB-Q 5 unit ACHS [facility] Administration Protocol Insulin Human Lispro 7 unit 04/09/19 07:30 04/10/19 13:17 Humalog SUB-Q 7 unit AC MARINO Administration Levetiracetam 500 mg 04/09/19 10:00 04/10/19 10:26 Keppra PO 500 mg BID MARINO Administration Levothyroxine Sodium 125 mcg 04/09/19 06:00 04/10/19 06:28 Synthroid PO 125 mcg DAILY@0600 MARINO Administration Ondansetron HCl 4 mg 04/08/19 23:54 04/09/19 17:14 Zofran IV 4 mg Q8H PRN Administration Nausea And Vomiting Pregabalin 25 mg 04/09/19 04:00 04/10/19 10:26 Pregabalin PO 25 mg BID MARINO Administration Pregabalin 75 mg 04/09/19 04:00 04/10/19 10:27 Pregabalin PO 75 mg BID MARINO Administration Sertraline HCl 25 mg 04/09/19 10:00 04/10/19 10:27 Zoloft PO 25 mg QDAY MARINO Administration Sodium Chloride 10 ml 04/09/19 10:00 04/10/19 10:27 Sodium Chloride Flush Syringe 10 Ml IV 10 ml BID MARINO Administration Sodium Chloride 10 ml 04/08/19 23:54 Sodium Chloride Flush Syringe 10 Ml IV PRN PRN LINE FLUSH Nutrition/Malnutrition Assess - Dietary Evaluation Nutrition/Malnutrition Findings: Nutrition Notes Start: 04/09/19 15:29 Freq: Status: Active Protocol: Document 04/09/19 15:29 AP (Rec: 04/09/19 15:50 AP [id number]) Co-Sign 04/09/19 15:29 Nutrition Notes Need for Assessment generated from: MD Order,Education Initial or Follow up Brief Note Current Diagnosis Diabetes Other Pertinent Diagnosis Clinch's disease, Hypothyroidism Current Diet Regular Labs/Tests BG 418 A1c 12.1 BUN 24 Ca 7.8 Cl 97.5 Pertinent Medications Reviewed Height 4 ft 11 in Weight 67 kg [place] Body Weight (kg) 43.18 BMI 29.8 Intake Prior to Admission Fair Weight Status Overweight Subjective/Other Information Pt screened for new onset of DM. Pt states she has been diabetic for 22 years. States she eats six small meals a day , drinks diet beverages ( Powerade/Gatorade/Soda). Pt also states her DM is "very hard to control" and is waiting for an insulin pump ( [employer]) and as soon as her antibodies and BG levels are tested for "3 months" which is coming to an end soon, she will get her pump and constant BG monitor. Pt will bolus depending on meals and does CHO counting and aims for 30- 45g CHO per meal with a 1:10 ratio. Burn Absent Trauma Absent Current % PO Fair (50-74%) Minimum of two criteria No #1 Nutrition Diagnosis Food and nutrition-related knowledge deficit Etiology Pt unaware of starks to control BG levels. Pt also thinks her DM is too hard to control. As Evidenced by Signs and Symptoms A1c 13 Diagnosis Progress(for reassessment Resolved documentation) Is patient on ventilator? No Is Patient Ambulatory and/or Out of Bed Yes REE-([facility]-ambulatory/OOB) [ [id number] [id number]] Calculation Used for Recommendations [facility] Additional Notes PRO 53-67g/day (0.8-1g/kg) Fluid: 1ml/kcal or per MD Nutrition Intervention Change Diet Order: CHO consistent diet Teaching Recipient Patient Learning Readiness Good Teaching Methods Discussion Response to Teaching Verbalize understanding Barriers to Learning No Barriers Goal #1 Pt to follow consistent CHO diet. Anticipated Discharge Needs: Consistent CHO Revisit per MD consult or patient Sign Off request:
--- NOTE | 2019-04-10 17:10 | Progress Note ---
Assessment and Plan - Patient Problems (1) BRANDEE (acute kidney injury) Current Visit: No Status: Acute Plan to address problem: Vasomotor nephropathy secondary to hypotension. Kidney function is improving. Continue volume repletion but decrease intravenous fluids. Follow-up electrolytes and renal function (2) Hyponatremia Current Visit: No Status: Acute (3) Addisonian crisis Current Visit: Yes Status: Acute Plan to address problem: Patient getting intravenous fluids, IV steroids. Improving. Dose of steroids being decreased by primary attending. Follow-up (4) Type 1 diabetes mellitus with diabetic chronic kidney disease Current Visit: Yes Status: Acute Plan to address problem: Sugar management by primary attending (5) Anemia in chronic kidney disease Current Visit: Yes Status: Acute Plan to address problem: Follow-up hemoglobin. Supplement as indicated (6) Hypoglycemia Current Visit: No Status: Acute Plan to address problem: Blood sugar is now high. Blood sugar management by primary attending (7) Hypotension Current Visit: Yes Status: Acute Plan to address problem: Continue volume repletion. Blood pressure improving. Follow-up Subjective Date of service: 04/10/19 Principal diagnosis: addisonian crisis, acute kidney injury, hypotension Interval history: Patient seen lying in bed. Complains of nausea. Occasional dizziness. No fever or chills. No shortness of breath Objective - Exam Narrative Exam: Young White female lying in bed in no acute distress HEENT: NCAT, pink oral mucous membrane Neck: Supple, no venous distention CVS: S1S2 RRR with no murmur, rub or gallop Chest: Clear to auscultation Abdomen: Protuberant, soft, nontender, no organomegaly, bowel sounds are present Extremities: No edema genitourinary deferred Neuro: Awake, alert no focal deficits - Vital Signs Vital signs: Vital Signs - 12hr 04/10/19 04/10/19 04/10/19 06:13 12:23 16:07 Temperature 98.0 F 97.9 F 98.0 F Pulse Rate 90 86 95 H Respiratory 16 14 16 Rate Blood Pressure 97/64 90/61 97/69 O2 Sat by Pulse 97 99 96 Oximetry - Lab 04/10/19 06:37 04/10/19 06:37 Most recent lab results Calcium 7.7 mg/dL (8.4-10.2) L 04/10/19 06:37 Medications & Allergies - Medications Allergies/Adverse Reactions: Allergies Penicillins Allergy (Verified 12/31/18 16:01) Angioedema vortioxetine [From Trintellix] Allergy (Verified 12/31/18 16:01) Unknown ziprasidone [From Geodon] Allergy (Verified 12/31/18 16:01) Angioedema vancomycin Adverse Reaction (Verified 12/31/18 16:01) Itching Home Medications: Home Medications Medication Instructions Recorded Confirmed Last Taken Type Levothyroxine [Synthroid] 125 mcg PO DAILY #30 tablet 02/17/19 04/09/19 04/08/19 Rx Lispro Insulin [HumaLOG] 0 unit SUB-Q ACHS units 02/17/19 04/09/19 04/08/19 Rx Sertraline [Zoloft] 25 mg PO QDAY #30 tablet 02/17/19 04/09/19 04/08/19 Rx levETIRAcetam [Keppra TAB] 500 mg PO BID #60 tablet 02/17/19 04/09/19 04/08/19 Rx Fludrocortisone [Florinef] 0.1 mg PO QDAY #30 tablet 02/25/19 04/09/19 04/08/19 Rx Hydrocortisone [Cortef TAB] 10 mg PO QAM #30 tablet 02/25/19 04/09/19 04/08/19 Rx Nitrofurantoin Davis/M-Cryst 100 mg PO Q12HR #14 capsule 02/28/19 04/09/19 04/08/19 Rx [Macrobid CAP] Ondansetron [Zofran ODT TAB] 4 mg PO Q8HR PRN #20 tab.rapdis 02/28/19 04/09/19 04/08/19 Rx Hydrocortisone [Cortef TAB] 5 mg PO QPM #30 tablet 03/06/19 04/09/19 04/08/19 Rx Insulin Glargine [Lantus VIAL] 10 units SUB-Q BID #60 units 03/06/19 04/09/19 04/08/19 Rx Active Medications: Generic Name Dose Route Start Last Admin Trade Name Freq PRN Reason Stop Dose Admin Acetaminophen 650 mg 04/08/19 23:54 Tylenol PO Q4H PRN Pain MILD(1-3)/Fever >100.5/STEWARD Dextrose 50 ml 04/08/19 23:54 D50w (25gm) Syringe IV PRN PRN Hypoglycemia Fludrocortisone Acetate 0.2 mg 04/09/19 10:00 04/10/19 10:26 Florinef PO 0.2 mg QDAY MARINO Administration Hydrocortisone Sodium Succinate 100 mg 04/09/19 06:00 04/10/19 14:20 Solu-Cortef IV 100 mg Q8HR MARINO Administration Sodium Chloride 1,000 mls @ 75 mls/hr 04/08/19 23:45 04/10/19 06:30 Nacl 0.9% 1000 Ml IV 75 mls/hr DIRECT MARINO Administration Levofloxacin/Dextrose 750 mg in 150 mls @ 100 mls/hr 04/10/19 10:00 04/10/19 10:27 Levaquin 750mg/150ml IV 100 mls/hr Q24HR MARINO Administration Protocol Insulin Glargine 10 units 04/09/19 22:00 04/09/19 21:57 Lantus SUB-Q Not Given QHS [facility] Insulin Human Lispro 0 unit 04/09/19 07:30 04/10/19 17:02 Humalog SUB-Q Not Given ACHS [facility] Protocol Insulin Human Lispro 7 unit 04/09/19 07:30 04/10/19 17:02 Humalog SUB-Q Not Given AC [facility] Levetiracetam 500 mg 04/09/19 10:00 04/10/19 10:26 Keppra PO 500 mg BID MARINO Administration Levothyroxine Sodium 125 mcg 04/09/19 06:00 04/10/19 06:28 Synthroid PO 125 mcg DAILY@0600 MARINO Administration Ondansetron HCl 4 mg 04/08/19 23:54 04/09/19 17:14 Zofran IV 4 mg Q8H PRN Administration Nausea And Vomiting Pregabalin 25 mg 04/09/19 04:00 04/10/19 10:26 Pregabalin PO 25 mg BID MARINO Administration Pregabalin 75 mg 04/09/19 04:00 04/10/19 10:27 Pregabalin PO 75 mg BID MARINO Administration Sertraline HCl 25 mg 04/09/19 10:00 04/10/19 10:27 Zoloft PO 25 mg QDAY MARINO Administration Sodium Chloride 10 ml 04/09/19 10:00 04/10/19 10:27 Sodium Chloride Flush Syringe 10 Ml IV 10 ml BID MARINO Administration Sodium Chloride 10 ml 04/08/19 23:54 Sodium Chloride Flush Syringe 10 Ml IV PRN PRN LINE FLUSH
[2019-04-10] MEDS: ONDANSETRON 4 MG/2 ML INJ IV PRN (19:34)
[2019-04-10 21:50] VITALS: BP 115/80
[2019-04-10] MEDS ORDERED: HEPARIN 5,000 UNIT/1 ML VIAL SUB-Q SCH (22:00)
[2019-04-10] MEDS: INSULIN GLARGINE 100 UNITS/ML SUB-Q SCH (22:39)
[2019-04-11 05:20] LABS: Hematocrit 22.9 % (30.3-42.9); Hemoglobin 7.3 gm/dl (10.1-14.3); Mean Corpuscular HGB Conc 32 % (30-34); Mean Corpuscular Volume 82 fl (79-97); Platelet Count 223 K/mm3 (140-440); Red Blood Count 2.78 M/mm3 (3.65-5.03); Red Cell Distribution Width 14.9 % (13.2-15.2)
[2019-04-11] MEDS: HYDROCORTISONE SOD SUCC 100 MG/2 ML VIAL IV SCH ×2 (05:21→16:52)
[2019-04-11] MEDS: LEVOTHYROXINE 125 MCG TAB PO SCH (05:21)
[2019-04-11 05:24] LABS: Calcium 7.4 mg/dL (8.4-10.2)
[2019-04-11] MEDS: INSULIN LISPRO 100 UNIT/ML SUB-Q SCH ×5 (08:52→17:05)
[2019-04-11] MEDS: SERTRALINE 25 MG TAB PO SCH (08:59)
[2019-04-11] MEDS: PREGABALIN 75 MG CAP PO SCH (09:00)
[2019-04-11] MEDS: PREGABALIN 25 MG CAP PO SCH (09:00)
[2019-04-11] MEDS: FLUDROCORTISONE 0.1 MG TAB PO SCH (09:00)
[2019-04-11] MEDS: levETIRAcetam 500 MG TAB PO SCH (09:00)
--- NOTE | 2019-04-11 10:45 | Discharge Summary ---
Providers - Providers Date of Admission: 04/08/19 23:54 Date of discharge: 04/11/19 Attending physician: CHLOE MATHEW 04/08/19 23:54 Consult to Physician [CONS] Routine Comment: Consulting Provider: AGATA TAPIA Physician Instructions: Reason For Exam: aubrey and Anel Primary care physician: [employer]DER Hospitalization Condition: Stable Hospital course: Patient is a 28-year-old woman with a history of type 1 diabetes mellitus since age 6, Anel's disease, celiac disease, depression, hypothyroidism and seizure disorder who presents with dizziness/lightheadedness with hypotension. She believes that she is having another Adrenal Jessamine crisis, She is on florinef and Coritef. She doesn't know why her bp is very low which has improved since IV steroids given in the ER * Chest x-ray no acute findings Discharge Diagnoses: Addisonian crisis in a patient with known history of Jessamine's disease: Patient having hyponatremia, hypotension, hypoglycemia, IV hydrocortisone and fludrocortisone, likely brought on by infection Sepsis due to UTI: IV antibiotics, obtain and follow-up urine cultures Type 2 diabetes, insulin-dependent uncontrolled hyperglycemia: Patient has been hypoglycemic, will recheck glucose, and give insulin sliding scale judiciously Acute kidney injury likely due to ATN: IV fluids, nephrology consult Chronic anemia, stable: monitor cbc Neuropathy: cont lyrica Seizures, continue home meds Hypothyroidism, TSH normal, continue Synthroid Depression; continue home meds DVT prophylaxis: added sq heparin, which caused a slow drop in h/h Disposition: home, pt asked if she could go home today Disposition: TO HOME OR SELFCARE Time spent for discharge: 34 minutes Core Measure Documentation - Palliative Care Palliative Care/ Comfort Measures: Not Applicable - Core Measures Any of the following diagnoses?: none - VTE Discharge Requirements Deep Vein Thrombosis/Pulmonary Embolism Present on Admission: No Has pt received <5 days of overlap therapy or INR<2.0: No Anticoagulant overlap therapy prescribed at discharge: No Contraindication No Overlap Therapy order at DC: Not Indicated Exam - Physical Exam Narrative exam: Gen: WDWN, NAD, Awake, Alert, Orientated HEENT: NCAT, EOMI, PERRL, OP Clear Neck: supple, no adenopathy, no thyromegaly, no JVD CVS/Heart: RRR, normal S1S2, pulses present bilaterally Chest/Lungs: CTA B, Symmetrical chest expansion, good air entry bilaterally GI/Abdomen: soft, NTND, good bowel sounds, no guarding or rebound /Bladder: no suprapubic tenderness, no CVA or paraspinal tenderness Extermity/Skin: no c/c/e, no obvious rash MSK: FROM x 4 Neuro: CN 2-12 grossly intact, no new focal deficits Psych: calm - Constitutional Vitals: Temp Pulse Resp BP Pulse Ox 98.6 F 89 16 115/80 96 04/10/19 21:48 04/10/19 21:48 04/10/19 21:48 04/10/19 21:48 04/10/19 21:48 Plan Activity: other (no strenous activity unless cleared by PCP) Diet: regular Follow up with: PRIMARY CARE, [Primary Care Provider] - 7 Days Prescriptions: predniSONE [Deltasone] 1 dose PO DAILY #60 tab HYDROcodone/APAP 5-325 [[place] 5/325] 1 each PO Q4HR PRN #12 tablet PRN Reason: Pain , Severe (7-10)
--- NOTE | 2019-04-11 12:27 | Progress Note ---
Assessment and Plan - Patient Problems (1) BRANDEE (acute kidney injury) Current Visit: No Status: Acute Plan to address problem: Vasomotor nephropathy secondary to hypotension. Kidney function is improving. stable for discharge from renal stand point (2) Hypotension Current Visit: Yes Status: Acute Plan to address problem: Continue volume repletion. Blood pressure improving. Follow-up (3) Hyponatremia Current Visit: No Status: Acute Plan to address problem: (4) Addisonian crisis Current Visit: Yes Status: Acute Plan to address problem: Patient getting intravenous fluids, IV steroids. Improving. Dose of steroids being decreased by primary attending. Follow-up (5) Type 1 diabetes mellitus with diabetic chronic kidney disease Current Visit: Yes Status: Acute Plan to address problem: Glucose management by primary attending (6) Anemia in chronic kidney disease Current Visit: Yes Status: Acute Plan to address problem: Follow-up hemoglobin. Supplement as indicated Subjective Date of service: 04/11/19 Principal diagnosis: addisonian crisis, acute kidney injury, hypotension Interval history: Pt awake, alert, in nAD Objective - General Appearance General appearance: well-developed, well-nourished, appears stated age EENT: ATNC, PERRL, mucous membranes moist Neck: no JVD Respiratory: Present: Clear to Ascultation Cardiology: regular, S1S2 Gastrointestinal: normoactive bowel sounds Integumentary: no rash, other (no edema ) Neurologic: no focal deficit, alert and oriented x3, strength 5/5, CN 3-12 intact Psychiatric: mood/affect appropriate, cooperative - Lab 04/11/19 04:50 04/11/19 04:50 Most recent lab results Calcium 7.4 mg/dL (8.4-10.2) L 04/11/19 04:50 Medications & Allergies - Medications Allergies/Adverse Reactions: Allergies Penicillins Allergy (Verified 12/31/18 16:01) Angioedema vortioxetine [From Trintellix] Allergy (Verified 12/31/18 16:01) Unknown ziprasidone [From Geodon] Allergy (Verified 12/31/18 16:01) Angioedema vancomycin Adverse Reaction (Verified 12/31/18 16:01) Itching Home Medications: Home Medications Medication Instructions Recorded Confirmed Last Taken Type Levothyroxine [Synthroid] 125 mcg PO DAILY #30 tablet 02/17/19 04/09/19 04/08/19 Rx Lispro Insulin [HumaLOG] 0 unit SUB-Q ACHS units 02/17/19 04/09/19 04/08/19 Rx Sertraline [Zoloft] 25 mg PO QDAY #30 tablet 02/17/19 04/09/19 04/08/19 Rx levETIRAcetam [Keppra TAB] 500 mg PO BID #60 tablet 02/17/19 04/09/19 04/08/19 Rx Fludrocortisone [Florinef] 0.1 mg PO QDAY #30 tablet 02/25/19 04/09/19 04/08/19 Rx Ondansetron [Zofran ODT TAB] 4 mg PO Q8HR PRN #20 tab.rapdis 02/28/19 04/09/19 04/08/19 Rx Insulin Glargine [Lantus VIAL] 10 units SUB-Q BID #60 units 03/06/19 04/09/19 04/08/19 Rx Acetaminophen [Acetaminophen TAB] 2 tab PO Q4H PRN #30 tablet 04/11/19 Unknown Rx HYDROcodone/APAP 5-325 [[place] 1 each PO Q4HR PRN #12 tablet 04/11/19 Unknown Rx 5/325] predniSONE [Deltasone] 1 dose PO DAILY #60 tab 04/11/19 Unknown Rx Active Medications: Generic Name Dose Route Start Last Admin Trade Name Freq PRN Reason Stop Dose Admin Acetaminophen 650 mg 04/08/19 23:54 Tylenol PO Q4H PRN Pain MILD(1-3)/Fever >100.5/STEWARD Dextrose 50 ml 04/08/19 23:54 D50w (25gm) Syringe IV PRN PRN Hypoglycemia Fludrocortisone Acetate 0.2 mg 04/09/19 10:00 04/11/19 09:00 Florinef PO 0.2 mg QDAY MARINO Administration Hydrocortisone Sodium Succinate 100 mg 04/09/19 06:00 04/11/19 05:21 Solu-Cortef IV 100 mg Q8HR MARINO Administration Sodium Chloride 1,000 mls @ 75 mls/hr 04/08/19 23:45 04/10/19 06:30 Nacl 0.9% 1000 Ml IV 75 mls/hr DIRECT MARINO Administration Levofloxacin/Dextrose 750 mg in 150 mls @ 100 mls/hr 04/10/19:00 04/11/19 08:59 Levaquin 750mg/150ml IV 100 mls/hr Q24HR MARINO Administration Protocol Insulin Glargine 10 units 04/09/19 22:00 04/10/19 22:39 Lantus SUB-Q 10 units QHS MARINO Administration Insulin Human Lispro 0 unit 04/09/19 07:30 04/11/19 08:52 Humalog SUB-Q 2 unit ACHS MARINO Administration Protocol Insulin Human Lispro 7 unit 04/09/19 07:30 04/11/19 08:52 Humalog SUB-Q 7 unit AC MARINO Administration Levetiracetam 500 mg 04/09/19 10:00 04/11/19 09:00 Keppra PO 500 mg BID MARINO Administration Levothyroxine Sodium 125 mcg 04/09/19 06:00 04/11/19 05:21 Synthroid PO 125 mcg DAILY@0600 MARINO Administration Ondansetron HCl 4 mg 04/08/19 23:54 04/10/19 19:34 Zofran IV 4 mg Q8H PRN Administration Nausea And Vomiting Pregabalin 25 mg 04/09/19 04:00 04/11/19 09:00 Pregabalin PO 25 mg BID MARINO Administration Pregabalin 75 mg 04/09/19 04:00 04/11/19 09:00 Pregabalin PO 75 mg BID MARINO Administration Sertraline HCl 25 mg 04/09/19 10:00 04/11/19 08:59 Zoloft PO 25 mg QDAY MARINO Administration Sodium Chloride 10 ml 04/09/19 10:00 04/11/19 09:01 Sodium Chloride Flush Syringe 10 Ml IV 10 ml BID MARINO Administration Sodium Chloride 10 ml 04/08/19 23:54 Sodium Chloride Flush Syringe 10 Ml IV PRN PRN LINE FLUSH
[2019-04-11] MEDS ORDERED: NEOMY 3.5 MG/BACIT 400 UNITS/POLY B 5000 UNITS/GM OINT PACKET TP ONE (12:51)
== END 2019-04-11 17:05 | disposition home or self-care (01) | DRG 871 ==
LOC: ED 17:56 → 3A 23:54
PROVIDERS: ADMIT Internal Medicine; ATTEND Internal Medicine
DX: A41.9 Sepsis, unspecified organism (principal); N17.0 Acute kidney failure with tubular necrosis; E27.1 Primary adrenocortical insufficiency; E27.2 Addisonian crisis; E03.9 Hypothyroidism, unspecified; F32.9 Major depressive disorder, single episode, unspecified; N39.0 Urinary tract infection, site not specified; D63.8 Anemia in other chronic diseases classified elsewhere; I95.9 Hypotension, unspecified; E10.22 Type 1 diabetes mellitus with diabetic chronic kidney disease; E10.649 Type 1 diabetes mellitus with hypoglycemia without coma; E10.40 Type 1 diabetes mellitus with diabetic neuropathy, unspecified; E87.1 Hypo-osmolality and hyponatremia; N18.9 Chronic kidney disease, unspecified; D63.1 Anemia in chronic kidney disease; Z88.0 Allergy status to penicillin; Z88.1 Allergy status to other antibiotic agents; Z88.8 Allergy status to other drugs, medicaments and biological substances; Z79.4 Long term (current) use of insulin; Z79.899 Other long term (current) drug therapy; Z90.49 Acquired absence of other specified parts of digestive tract
CPT/HCPCS: 36415; 71045; 80048; 80053; 80076; 81001; 81025; 82140; 82533; 82728; 82962; 83036; 83540; 84443; 84703; 85007; 85025; 85027; 85610; 85730; 87040; 87086; 96374; G0378; A6250; J1100; J1642; J1650; J1720; J1815; J1956; J2270; J2405; J7030; J7121; Q0162

== ENCOUNTER 2019-04-13 15:26 | Inpatient (IN) | payer MEDICAID ==
[2019-04-13] MEDS ORDERED: D5LR 1,000 ML IV ONE (15:40)
--- NOTE | 2019-04-13 15:56 | Emergency Department Report ---
ED Altered Mental Status HPI - General Stated Complaint: LOW BLOOD SUGAR Time Seen by Provider: 04/13/19 15:46 - History of Present Illness Initial Comments: Patient is 28 years old female with history of type 1 diabetes with multiple ER visits for altered mental status before. Patient brought to the emergency room via EMS for evaluation of altered mental status unknown time of onset. EMS stated that patient blood glucose was 10. EMS unable to obtain IV access. Upon arrival to the ER patient is unresponsive. Patient immediately had a right tibi a I/O and dextrose infused. Patient immediately started wakening up. Patient now is alert, oriented 3. Patient stated that she does not remember the last time she ate but she stated that she took her insulin last night. Patient last time was seen by anyone was last night there EMS report. She denied any recent head injury, chest pain, shortness of breath, abdominal pain, nausea or vomiting. MD Complaint: altered mental status, decreased responsiveness -: unknown Severity: severe Context: diabetes Associated Symptoms: denies other symptoms - Related Data Previous Rx's Medication Instructions Recorded Last Taken Type Levothyroxine [Synthroid] 125 mcg PO DAILY #30 tablet 02/17/19 04/08/19 Rx Lispro Insulin [HumaLOG] 0 unit SUB-Q ACHS units 02/17/19 04/08/19 Rx Sertraline [Zoloft] 25 mg PO QDAY #30 tablet 02/17/19 04/08/19 Rx levETIRAcetam [Keppra TAB] 500 mg PO BID #60 tablet 02/17/19 04/08/19 Rx Fludrocortisone [Florinef] 0.1 mg PO QDAY #30 tablet 02/25/19 04/08/19 Rx Ondansetron [Zofran ODT TAB] 4 mg PO Q8HR PRN #20 tab.rapdis 02/28/19 04/08/19 Rx Insulin Glargine [Lantus VIAL] 10 units SUB-Q BID #60 units 03/06/19 04/08/19 Rx Acetaminophen [Acetaminophen TAB] 2 tab PO Q4H PRN #30 tablet 04/11/19 Unknown Rx HYDROcodone/APAP 5-325 [[place] 1 each PO Q4HR PRN #12 tablet 04/11/19 Unknown Rx 5/325] predniSONE [Deltasone] 1 dose PO DAILY #60 tab 04/11/19 Unknown Rx Allergies Allergy/AdvReac Type Severity Reaction Status Date / Time Penicillins Allergy Angioedema Verified 12/31/18 16:01 vortioxetine Allergy Unknown Verified 12/31/18 16:01 [From Trintellix] ziprasidone [From Geodon] Allergy Angioedema Verified 12/31/18 16:01 vancomycin AdvReac Itching Verified 12/31/18 16:01 ED Review of Systems ROS: Stated complaint: LOW BLOOD SUGAR Other details as noted in HPI Comment: All other systems reviewed and negative Constitutional: denies: chills, fever Respiratory: denies: cough, shortness of breath, SOB with exertion, SOB at rest, wheezing Cardiovascular: denies: chest pain, palpitations Gastrointestinal: denies: abdominal pain, nausea, vomiting Musculoskeletal: denies: back pain Neurological: denies: headache, weakness, numbness, paresthesias, confusion, abnormal gait ED Past Medical Hx - Past Medical History Hx Hypertension: No Hx Heart Attack/AMI: No Hx Congestive Heart Failure: No Hx Diabetes: Yes Hx Deep Vein Thrombosis: No Hx Pulmonary Embolism: No Hx GERD: No Hx Liver Disease: No Hx Renal Disease: Yes Hx Arthritis: No Hx Seizures: Yes Hx Kidney Stones: No Hx Asthma: No Hx COPD: No Hx Tuberculosis: No Hx Dementia: No Hx HIV: No Additional medical history: hypotension, hypothyroidism, Ada's disease, Depression, Celiac - Surgical History Hx Coronary Stent: No Hx Pacemaker: No Hx Internal Defibrillator: No Hx Cholecystectomy: Yes Hx Appendectomy: Yes Additional Surgical History: 4. port right chest wall - Social History Smoking Status: Never Smoker - Medications Home Medications: Home Medications Medication Instructions Recorded Confirmed Last Taken Type Levothyroxine [Synthroid] 125 mcg PO DAILY #30 tablet 02/17/19 04/09/19 04/08/19 Rx Lispro Insulin [HumaLOG] 0 unit SUB-Q ACHS units 02/17/19 04/09/19 04/08/19 Rx Sertraline [Zoloft] 25 mg PO QDAY #30 tablet 02/17/19 04/09/19 04/08/19 Rx levETIRAcetam [Keppra TAB] 500 mg PO BID #60 tablet 02/17/19 04/09/19 04/08/19 Rx Fludrocortisone [Florinef] 0.1 mg PO QDAY #30 tablet 02/25/19 04/09/19 04/08/19 Rx Ondansetron [Zofran ODT TAB] 4 mg PO Q8HR PRN #20 tab.rapdis 02/28/19 04/09/19 04/08/19 Rx Insulin Glargine [Lantus VIAL] 10 units SUB-Q BID #60 units 03/06/19 04/09/19 04/08/19 Rx Acetaminophen [Acetaminophen TAB] 2 tab PO Q4H PRN #30 tablet 04/11/19 Unknown Rx HYDROcodone/APAP 5-325 [[place] 1 each PO Q4HR PRN #12 tablet 04/11/19 Unknown Rx 5/325] predniSONE [Deltasone] 1 dose PO DAILY #60 tab 04/11/19 Unknown Rx ED Physical Exam - General General appearance: alert, in no apparent distress - Head Head exam: Present: atraumatic, normocephalic, normal inspection - Eye Eye exam: Present: normal appearance, PERRL - ENT ENT exam: Present: normal exam, normal orophraynx, mucous membranes moist - Neck Neck exam: Present: normal inspection, full ROM. Absent: tenderness, meningismus, lymphadenopathy, thyromegaly - Respiratory Respiratory exam: Present: normal lung sounds bilaterally - Cardiovascular Cardiovascular Exam: Present: regular rate, normal rhythm, normal heart sounds - GI/Abdominal GI/Abdominal exam: Present: soft, normal bowel sounds. Absent: distended, tenderness, guarding, rebound, rigid, organomegaly, mass, bruit, pulsatile mass, hernia - Extremities Exam Extremities exam: Present: normal inspection, full ROM, normal capillary refill. Absent: tenderness, pedal edema, calf tenderness - Back Exam Back exam: Present: normal inspection, full ROM. Absent: CVA tenderness (R), CVA tenderness (L), muscle spasm, paraspinal tenderness, vertebral tenderness - Neurological Exam Neurological exam: Present: alert, oriented X3, CN II-XII intact, normal gait - Psychiatric Psychiatric exam: Present: normal mood - Skin Skin exam: Present: warm, intact, normal color - Level of Consciousness 1a. Level of Consciousness: alert/keenly responsive - LOC Questions 1b. LOC Questions: answers both correctly - LOC Command 1c. LOC Commands: performs tasks correctly - Best Gaze 2. Best Gaze: normal - Visual 3. Visual: no visual loss - Facial Palsy 4. Facial Palsy: normal symmetrical movement - Motor Arm 5a. Motor Arm Left: no drift 5b. Motor Arm Right: no drift - Motor Leg 6a. Motor Leg Left: no drift 6b. Motor Leg Right: no drift - Limb Ataxia 7. Limb Ataxia: absent - Sensory 8. Sensory: normal - Best Language 9. Best Language: no aphasia - Dysarthria 10. Dysarthria: normal - Extinction and Inattention 11. Extinction/Inattention: no abnormality - Scoring Total Score: 0 Stroke Severity: No Stroke Symptoms - Lab Data Result diagrams: 04/13/19 17:02 04/13/19 17:02 Lab Results 04/13/19 04/13/19 04/13/19 Range/Units 17:02 17:02 17:02 WBC 7.8 (4.5-11.0) K/mm3 RBC 3.18 L (3.65-5.03) M/mm3 Hgb 8.3 L (10.1-14.3) gm/dl Hct 26.3 L (30.3-42.9) % MCV 83 (79-97) fl MCH 26 L (28-32) pg MCHC 32 (30-34) % RDW 15.1 (13.2-15.2) % Plt Count 211 (140-440) K/mm3 Lymph % (Auto) [employer] Sodium 139 (137-145) mmol/L Potassium 3.6 (3.6-5.0) mmol/L Chloride 103.5 (98-107) mmol/L Carbon Dioxide 18 L (22-30) mmol/L Anion Gap 21 mmol/L BUN 24 H (7-17) mg/dL Creatinine 1.2 (0.7-1.2) mg/dL Estimated GFR 53 ml/min BUN/Creatinine Ratio 20 % Glucose 346 H (65-100) mg/dL POC Glucose (70-105) Calcium 7.3 L (8.4-10.2) mg/dL Total Bilirubin 0.20 (0.1-1.2) mg/dL Direct Bilirubin < 0.2 (0-0.2) mg/dL Indirect Bilirubin 0.0 mg/dL AST 64 H (5-40) units/L ALT 43 (7-56) units/L Alkaline Phosphatase 81 (35-129) units/L Total Protein 4.8 L (6.3-8.2) g/dL Albumin 2.7 L (3.9-5) g/dL Albumin/Globulin Ratio 1.3 % HCG, Qual Negative (Negative) 04/13/19 Range/Units 17:05 WBC (4.5-11.0) K/mm3 RBC (3.65-5.03) M/mm3 Hgb (10.1-14.3) gm/dl Hct (30.3-42.9) % MCV (79-97) fl MCH (28-32) pg MCHC (30-34) % RDW (13.2-15.2) % Plt Count (140-440) K/mm3 Lymph % (Auto) Sodium (137-145) mmol/L Potassium (3.6-5.0) mmol/L Chloride (98-107) mmol/L Carbon Dioxide (22-30) mmol/L Anion Gap mmol/L BUN (7-17) mg/dL Creatinine (0.7-1.2) mg/dL Estimated GFR ml/min BUN/Creatinine Ratio % Glucose (65-100) mg/dL POC Glucose 252 H (70-105) Calcium (8.4-10.2) mg/dL Total Bilirubin (0.1-1.2) mg/dL Direct Bilirubin (0-0.2) mg/dL Indirect Bilirubin mg/dL AST (5-40) units/L ALT (7-56) units/L Alkaline Phosphatase (35-129) units/L Total Protein (6.3-8.2) g/dL Albumin (3.9-5) g/dL Albumin/Globulin Ratio % HCG, Qual (Negative) - Medical Decision Making Patient is 28 years old female with history of type 1 diabetes with multiple ER visits for altered mental status before. Patient brought to the emergency room via EMS for evaluation of altered mental status unknown time of onset. EMS stated that patient blood glucose was 10. EMS unable to obtain IV access. Upon arrival to the ER patient is unresponsive. Patient immediately had a right tibia I/O and dextrose infused. Patient immediately started wakening up. Patient now is alert, oriented 3. Patient stated that she does not remember the last time she ate but she stated that she took her insulin last night. Patient last time was seen by anyone was last night there EMS report. She denied any recent head injury, chest pain, shortness of breath, abdominal pain, nausea or vomiting. Patient is started on D10 and given a meal tray. Frequent blood glucose monitoring remained stable. I discussed the patient with Dr. Han, he agreed to admit the patient to medical service. Critical Care Time: Yes Critical care time in (mins) excluding proc time.: 30 Critical care attestation.: If time is entered above; I have spent that time in minutes in the direct care of this critically ill patient, excluding procedure time. ED Disposition Clinical Impression: Altered mental status, Hypoglycemia Disposition: DC-09 OP ADMIT IP TO THIS HOSP Is pt being admited?: Yes Condition: Stable
[2019-04-13] MEDS ORDERED: D10W 1,000 ML IV SCH (16:00)
[2019-04-13] MEDS ORDERED: D5LR 1,000 ML IV SCH (17:06)
[2019-04-13 17:17] LABS: Hematocrit 26.3 % (30.3-42.9); Hemoglobin 8.3 gm/dl (10.1-14.3); Mean Corpuscular HGB Conc 32 % (30-34); Mean Corpuscular Volume 83 fl (79-97); Platelet Count 211 K/mm3 (140-440); Red Blood Count 3.18 M/mm3 (3.65-5.03); Red Cell Distribution Width 15.1 % (13.2-15.2)
[2019-04-13] MEDS ORDERED: ZOFRAN ONE (17:21)
[2019-04-13] MEDS ORDERED: MORPHINE ONE (17:21)
[2019-04-13 17:42] LABS: Alanine Aminotransferase 43 units/L (7-56); Albumin 2.7 g/dL (3.9-5); BUN/Creatinine Ratio 20; Blood Urea Nitrogen 24 mg/dL (7-17); Calcium 7.3 mg/dL (8.4-10.2); Hemolysis Index 4
[2019-04-13] MEDS ORDERED: ZOFRAN IV ONE (17:42)
[2019-04-13] MEDS ORDERED: MORPHINE IV ONE (17:42)
[2019-04-13] MEDS ORDERED: D50W (25GM) Syringe IV ONE (17:45)
[2019-04-13 17:46] LABS: Bilirubin,Direct < 0.2 mg/dL (0-0.2)
[2019-04-13 17:51] LABS: Basophils % (Manual) 0 % (0.0-1.8); Eosinophils % (Manual) 0 % (0.0-4.3); Total Cells Counted 100
[2019-04-13 17:53] LABS: Anisocytosis Few; Platelet Estimate Consistent w Auto
[2019-04-13] MEDS ORDERED: TYLENOL PO PRN ×2 (21:33→21:34)
[2019-04-13] MEDS ORDERED: ZOFRAN ODT PO PRN (21:33)
--- NOTE | 2019-04-13 21:33 | History and Physical Report ---
History of Present Illness Date of examination: 04/13/19 Date of admission: 04/13/19 18:11 Chief complaint: Unresponsiveness since 830 am History of present illness: 28-year-old female with history of type 1 diabetes since age 6-year-old on Lantus 10 units at morning and sliding scale coverage rest of the day apparently had 3 units of insulin last night and her meals. Patient woke up at around 3 AM and check the blood glucose level which was around 320. Patient states that she woke up around 8:27 AM and felt very lethargic and passed out. [facility] from the [facility] called the EMS . As per EMS blood glucose level was 10 and EMS was unable to obtain IV access. In the emergency room I/O was placed and dextrose given after which the patient woke up immediately and became more coherent. Patient is alert and oriented during my exam and able to answer questions. No fever or dysuria. Patient did not give any excessive insulin or missed a meal. Past Medical History Diabetes: Yes Renal Disease: Yes Seizures: Yes Additional medical history: hypotension, hypothyroidism, [place]'s disease, Depression, Celiac Surgical History Cholecystectomy: Yes Appendectomy: Yes Additional Surgical History: 4. port right chest wall Social History Smoking Status: Never Smoker Family history Htn Medications Home Medications: Home Medications Medication Instructions Recorded Confirmed Last Taken Type Levothyroxine [Synthroid] 125 mcg PO DAILY #30 tablet 02/17/19 04/09/19 04/08/19 Rx Lispro Insulin [HumaLOG] 0 unit SUB-Q ACHS units 02/17/19 04/09/19 04/08/19 Rx Sertraline [Zoloft] 25 mg PO QDAY #30 tablet 02/17/19 04/09/19 04/08/19 Rx levETIRAcetam [Keppra TAB] 500 mg PO BID #60 tablet 02/17/19 04/09/19 04/08/19 Rx Fludrocortisone [Florinef] 0.1 mg PO QDAY #30 tablet 02/25/19 04/09/19 04/08/19 Rx Ondansetron [Zofran ODT TAB] 4 mg PO Q8HR PRN #20 tab.rapdis 02/28/19 04/09/19 04/08/19 Rx Insulin Glargine [Lantus VIAL] 10 units SUB-Q BID #60 units 03/06/19 04/09/19 04/08/19 Rx Acetaminophen [Acetaminophen TAB] 2 tab PO Q4H PRN #30 tablet 04/11/19 Unknown Rx HYDROcodone/APAP 5-325 [[place] 1 each PO Q4HR PRN #12 tablet 04/11/19 Unknown Rx 5/325] predniSONE [Deltasone] 1 dose PO DAILY #60 tab 04/11/19 Unknown Rx Review of Systems ROS: Stated complaint: LOW BLOOD SUGAR Other details as noted in HPI Comment: All other systems reviewed and negative Constitutional: denies: chills, fever Respiratory: denies: cough, shortness of breath, SOB with exertion, SOB at rest, wheezing Cardiovascular: denies: chest pain, palpitations Gastrointestinal: denies: abdominal pain, nausea, vomiting Musculoskeletal: denies: back pain Neurological: denies: headache, weakness, numbness, paresthesias, confusion, abnormal gait Medications and Allergies Allergies Allergy/AdvReac Type Severity Reaction Status Date / Time Penicillins Allergy Angioedema Verified 12/31/18 16:01 vortioxetine Allergy Unknown Verified 12/31/18 16:01 [From Trintellix] ziprasidone [From Geodon] Allergy Angioedema Verified 12/31/18 16:01 vancomycin AdvReac Itching Verified 12/31/18 16:01 Home Medications Medication Instructions Recorded Confirmed Last Taken Type Levothyroxine [Synthroid] 125 mcg PO DAILY #30 tablet 02/17/19 04/13/19 04/12/19 Rx Lispro Insulin [HumaLOG] 0 unit SUB-Q ACHS units 02/17/19 04/13/19 04/12/19 Rx Sertraline [Zoloft] 25 mg PO QDAY #30 tablet 02/17/19 04/13/19 04/12/19 Rx levETIRAcetam [Keppra TAB] 500 mg PO BID #60 tablet 02/17/19 04/13/19 04/12/19 Rx Fludrocortisone [Florinef] 0.1 mg PO QDAY #30 tablet 02/25/19 04/13/19 04/12/19 Rx Ondansetron [Zofran ODT TAB] 4 mg PO Q8HR PRN #20 tab.rapdis 02/28/19 04/13/19 04/12/19 Rx Insulin Glargine [Lantus VIAL] 10 units SUB-Q BID #60 units 03/06/19 04/13/19 04/12/19 Rx Acetaminophen [Acetaminophen TAB] 2 tab PO Q4H PRN #30 tablet 04/11/19 04/13/19 04/10/19 Rx HYDROcodone/APAP 5-325 [[place] 1 each PO Q4HR PRN #12 tablet 04/11/19 04/13/19 04/12/19 Rx 5/325] predniSONE [Deltasone] 1 dose PO DAILY #60 tab 04/11/19 04/13/19 04/12/19 Rx Active Meds: Active Medications Dextrose (D10w) 1,000 mls @ 150 mls/hr IV DIRECT MARINO Last Admin: 04/13/19 18:31 Dose: 150 mls/hr Documented by: Dextrose/Lactated Ringer's ([email or web address]) 1,000 mls @ 999 mls/hr IV DIRECT MARINO Last Admin: 04/13/19 15:45 Dose: 999 mls/hr Documented by: Exam - Constitutional Vitals: Temp Pulse Resp BP Pulse Ox 97.6 F 66 12 108/61 99 04/13/19 19:35 04/13/19 20:35 04/13/19 20:35 04/13/19 20:35 04/13/19 20:35 General appearance: Present: no acute distress, well-nourished - EENT Eyes: Present: PERRL ENT: hearing intact, clear oral mucosa - Neck Neck: Present: supple, normal ROM - Respiratory Respiratory effort: normal Respiratory: bilateral: CTA - Cardiovascular Heart rate: 78 Rhythm: regular Heart Sounds: Present: S1 & S2. Absent: rub, click - Extremities Extremities: no ischemia, pulses intact, pulses symmetrical, No edema Peripheral Pulses: within normal limits - Abdominal General gastrointestinal: Present: soft, non-tender, non-distended, normal bowel sounds Female genitourinary: Present: normal - Rectal Rectal Exam: deferred - Integumentary Integumentary: Present: clear, warm, dry - Musculoskeletal Musculoskeletal: strength equal bilaterally, generalized weakness - Psychiatric Psychiatric: appropriate mood/affect, intact judgment & insight (was unresponsive when she arrived in the emergency room. Improved with dextrose IV/I/O) - Neurologic Neurologic: CNII-XII intact, moves all extremities - Allied Health Allied health notes reviewed: nursing, case management Results - Labs CBC & Chem 7: 04/13/19 17:02 04/13/19 17:02 Labs: Laboratory Last Values WBC 7.8 K/mm3 (4.5-11.0) 04/13/19 17:02 RBC 3.18 M/mm3 (3.65-5.03) L 04/13/19 17:02 Hgb 8.3 gm/dl (10.1-14.3) L 04/13/19 17:02 Hct 26.3 % (30.3-42.9) L 04/13/19 17:02 MCV 83 fl (79-97) 04/13/19 17:02 MCH 26 pg (28-32) L 04/13/19 17:02 MCHC 32 % (30-34) 04/13/19 17:02 RDW 15.1 % (13.2-15.2) 04/13/19 17:02 Plt Count 211 K/mm3 (140-440) 04/13/19 17:02 Lymph % (Auto) News Correspondent 04/13/19 17:02 Add Manual Diff Complete 04/13/19 17:02 Total Counted 100 04/13/19 17:02 Seg Neuts % (Manual) 40.0 % (40.0-70.0) 04/13/19 17:02 Band Neutrophils % 0 % 04/13/19 17:02 Lymphocytes % (Manual) 58.0 % (13.4-35.0) H 04/13/19 17:02 Reactive Lymphs % (Man) 0 % 04/13/19 17:02 Monocytes % (Manual) 2.0 % (0.0-7.3) 04/13/19 17:02 Eosinophils % (Manual) 0 % (0.0-4.3) 04/13/19 17:02 Basophils % (Manual) 0 % (0.0-1.8) 04/13/19 17:02 Metamyelocytes % 0 % 04/13/19 17:02 Myelocytes % 0 % 04/13/19 17:02 Promyelocytes % 0 % 04/13/19 17:02 Blast Cells % 0 % 04/13/19 17:02 Nucleated RBC % Not Reportable 04/13/19 17:02 Seg Neutrophils # Man 3.1 K/mm3 (1.8-7.7) 04/13/19 17:02 Band Neutrophils # 0.0 K/mm3 04/13/19 17:02 Lymphocytes # (Manual) 4.5 K/mm3 (1.2-5.4) 04/13/19 17:02 Abs React Lymphs (Man) 0.0 K/mm3 04/13/19 17:02 Monocytes # (Manual) 0.2 K/mm3 (0.0-0.8) 04/13/19 17:02 Eosinophils # (Manual) 0.0 K/mm3 (0.0-0.4) 04/13/19 17:02 Basophils # (Manual) 0.0 K/mm3 (0.0-0.1) 04/13/19 17:02 Metamyelocytes # 0.0 K/mm3 04/13/19 17:02 Myelocytes # 0.0 K/mm3 04/13/19 17:02 Promyelocytes # 0.0 K/mm3 04/13/19 17:02 Blast Cells # 0.0 K/mm3 04/13/19 17:02 WBC Morphology Not Reportable 04/13/19 17:02 Hypersegmented Neuts Not Reportable 04/13/19 17:02 Hyposegmented Neuts Not Reportable 04/13/19 17:02 Hypogranular Neuts Not Reportable 04/13/19 17:02 Smudge Cells Not Reportable 04/13/19 17:02 Toxic Granulation Not Reportable 04/13/19 17:02 Toxic Vacuolation Not Reportable 04/13/19 17:02 Dohle Bodies Not Reportable 04/13/19 17:02 Pelger-Huet Anomaly Not Reportable 04/13/19 17:02 Fredrick Rods Not Reportable 04/13/19 17:02 Platelet Estimate Consistent w auto 04/13/19 17:02 Clumped Platelets Not Reportable 04/13/19 17:02 Plt Clumps, EDTA Not Reportable 04/13/19 17:02 Large Platelets Not Reportable 04/13/19 17:02 Giant Platelets Not Reportable 04/13/19 17:02 Platelet Satelliting Not Reportable 04/13/19 17:02 Plt Morphology Comment Not Reportable 04/13/19 17:02 RBC Morphology Not Reportable 04/13/19 17:02 Dimorphic RBCs Not Reportable 04/13/19 17:02 Polychromasia Not Reportable 04/13/19 17:02 Hypochromasia Not Reportable 04/13/19 17:02 Poikilocytosis Not Reportable 04/13/19 17:02 Anisocytosis Few 04/13/19 17:02 Microcytosis Not Reportable 04/13/19 17:02 Macrocytosis Not Reportable 04/13/19 17:02 Spherocytes Not Reportable 04/13/19 17:02 Pappenheimer Bodies Not Reportable 04/13/19 17:02 Sickle Cells Not Reportable 04/13/19 17:02 Target Cells Not Reportable 04/13/19 17:02 Tear Drop Cells Not Reportable 04/13/19 17:02 Ovalocytes Not Reportable 04/13/19 17:02 Helmet Cells Not Reportable 04/13/19 17:02 Lind-Golden Triangle Bodies Not Reportable 04/13/19 17:02 Graham Rings Not Reportable 04/13/19 17:02 Fermin Cells Not Reportable 04/13/19 17:02 Bite Cells Not Reportable 04/13/19 17:02 Crenated Cell Not Reportable 04/13/19 17:02 Elliptocytes Not Reportable 04/13/19 17:02 Acanthocytes (Spur) Not Reportable 04/13/19 17:02 Rouleaux Not Reportable 04/13/19 17:02 Hemoglobin C Crystals Not Reportable 04/13/19 17:02 Schistocytes Not Reportable 04/13/19 17:02 Malaria parasites Not Reportable 04/13/19 17:02 Jose Bodies Not Reportable 04/13/19 17:02 Hem Pathologist Commnt No 04/13/19 17:02 Sodium 139 mmol/L (137-145) 04/13/19 17:02 Potassium 3.6 mmol/L (3.6-5.0) 04/13/19 17:02 Chloride 103.5 mmol/L (98-107) 04/13/19 17:02 Carbon Dioxide 18 mmol/L (22-30) L 04/13/19 17:02 Anion Gap 21 mmol/L 04/13/19 17:02 BUN 24 mg/dL (7-17) H 04/13/19 17:02 Creatinine 1.2 mg/dL (0.7-1.2) 04/13/19 17:02 Estimated GFR 53 ml/min 04/13/19 17:02 BUN/Creatinine Ratio 20 % 04/13/19 17:02 Glucose 346 mg/dL (65-100) H 04/13/19 17:02 POC Glucose 252 (70-105) H 04/13/19 17:05 Calcium 7.3 mg/dL (8.4-10.2) L 04/13/19 17:02 Total Bilirubin 0.20 mg/dL (0.1-1.2) 04/13/19 17:02 Direct Bilirubin < 0.2 mg/dL (0-0.2) 04/13/19 17:02 Indirect Bilirubin 0.0 mg/dL 04/13/19 17:02 AST 64 units/L (5-40) H 04/13/19 17:02 ALT 43 units/L (7-56) 04/13/19 17:02 Alkaline Phosphatase 81 units/L (35-129) 04/13/19 17:02 Total Protein 4.8 g/dL (6.3-8.2) L 04/13/19 17:02 Albumin 2.7 g/dL (3.9-5) L 04/13/19 17:02 Albumin/Globulin Ratio 1.3 % 04/13/19 17:02 HCG, Qual Negative (Negative) 04/13/19 17:02 Short CBC 04/13/19 Range/Units 17:02 WBC 7.8 (4.5-11.0) K/mm3 Hgb 8.3 L (10.1-14.3) gm/dl Hct 26.3 L (30.3-42.9) % Plt Count 211 (140-440) K/mm3 BMP 04/13/19 17:02 Sodium 139 Potassium 3.6 Chloride 103.5 Carbon Dioxide 18 L BUN 24 H Creatinine 1.2 Glucose 346 H Calcium 7.3 L Liver Function 04/13/19 Range/Units 17:02 Total Bilirubin 0.20 (0.1-1.2) mg/dL Direct Bilirubin < 0.2 (0-0.2) mg/dL AST 64 H (5-40) units/L ALT 43 (7-56) units/L Alkaline Phosphatase 81 (35-129) units/L Albumin 2.7 L (3.9-5) g/dL Assessment and Plan Advance Directives: Yes (full code) VTE prophylaxis?: Chemical Plan of care discussed with patient/family: Yes - Patient Problems (1) Acute encephalopathy Current Visit: Yes Status: Acute Plan to address problem: Secondary to hypoglycemia Improved rapidly (2) Hypoglycemia Current Visit: Yes Status: Acute Plan to address problem: Unclear why hypoglycemia happened Patient says that she did have meals and she did take low dose insulin at nighttime in the form of 3 units of regular insulin. Patient takes the Lantus in the morning. Will hold the Lantus for a while 1 day and start her on low-dose insulin with frequent Accu-Cheks. If necessary we'll increase it to moderate dose sliding scale protocol (3) Seizure disorder Current Visit: Yes Status: Acute Plan to address problem: Continue Keppra (4) Hypothyroidism Current Visit: Yes Status: Chronic Qualifiers: Hypothyroidism type: acquired Qualified Code(s): E03.9 - Hypothyroidism, unspecified Plan to address problem: Continue Synthroid and check a TSH (5) Addisons disease Current Visit: Yes Status: Chronic Plan to address problem: Continue fludrocortisone and prednisone Patient counseled about taking fludrocortisone and prednisone regularly (6) Anemia Current Visit: Yes Status: Chronic Qualifiers: Anemia type: unspecified type Qualified Code(s): D64.9 - Anemia, unspecified Plan to address problem: Anemia workup (7) Malnutrition Current Visit: Yes Status: Chronic Qualifiers: Malnutrition type: protein-calorie malnutrition Protein-calorie malnutr ition severity: moderate Qualified Code(s): E44.0 - Moderate protein-calorie malnutrition Plan to address problem: Dietitian consult (8) DVT prophylaxis Current Visit: No Status: Acute Plan to address problem: On Lovenox and GI prophylaxis
[2019-04-13] MEDS ORDERED: PERCOCET 5/325 PO PRN (21:34)
[2019-04-13] MEDS ORDERED: SODIUM CHLORIDE FLUSH SYRINGE 10 ML IV PRN (21:34)
[2019-04-13] MEDS ORDERED: ZOFRAN IV PRN (21:34)
[2019-04-13] MEDS: FLORINEF PO SCH (22:00)
[2019-04-13] MEDS ORDERED: DELTASONE PO SCH (22:00)
[2019-04-13] MEDS: LOVENOX SUB-Q SCH (23:00)
[2019-04-13] MEDS: SODIUM CHLORIDE FLUSH SYRINGE 10 ML IV SCH (23:00)
[2019-04-13] MEDS ORDERED: HumaLOG SUB-Q ONE (23:06)
[2019-04-13] MEDS ORDERED: NORCO 5/325 ONE (23:07)
[2019-04-13] MEDS: PEPCID PO SCH (23:08)
[2019-04-13] MEDS ORDERED: PEPCID ONE (23:09)
[2019-04-13] MEDS: KEPPRA PO SCH (23:09)
[2019-04-13] MEDS ORDERED: LOVENOX SUB-Q ONE (23:09)
[2019-04-13] MEDS ORDERED: KEPPRA PO ONE (23:09)
[2019-04-13] MEDS: HumaLOG SUB-Q SCH (23:10)
[2019-04-13] MEDS: NORCO 5/325 PO PRN (23:10)
[2019-04-13] MEDS: ZOLOFT PO SCH (23:14)
[2019-04-13 23:15] LABS: Bilirubin,Urine NEG (Negative); Blood,Urine NEG (Negative); Color,Urine Straw (Yellow); Protein,Urine <15 mg/dL mg/dL (Negative); Urobilinogen,Urine < 2.0 mg/dL (<2.0)
[2019-04-13] MEDS ORDERED: ZOLOFT ONE (23:15)
[2019-04-14] MEDS: HumaLOG SUB-Q SCH ×6 (02:35→22:04)
[2019-04-14] MEDS: SYNTHROID PO SCH (06:03)
[2019-04-14] MEDS: NORCO 5/325 PO PRN ×2 (06:11→13:40)
[2019-04-14 06:29] LABS: Hematocrit 22.9 % (30.3-42.9); Hemoglobin 7.3 gm/dl (10.1-14.3); Mean Corpuscular HGB Conc 32 % (30-34); Mean Corpuscular Volume 82 fl (79-97); Platelet Count 217 K/mm3 (140-440)
[2019-04-14 06:48] LABS: Alanine Aminotransferase 37 units/L (7-56); Albumin 2.5 g/dL (3.9-5); BUN/Creatinine Ratio 19; Blood Urea Nitrogen 19 mg/dL (7-17); Calcium 7.1 mg/dL (8.4-10.2); Hemolysis Index 4
[2019-04-14] MEDS: FLORINEF PO SCH (09:22)
[2019-04-14] MEDS: KEPPRA PO SCH ×2 (09:22→22:04)
[2019-04-14] MEDS: PEPCID PO SCH ×2 (09:22→22:04)
[2019-04-14] MEDS: SODIUM CHLORIDE FLUSH SYRINGE 10 ML IV SCH ×2 (09:23→22:05)
[2019-04-14] MEDS: ZOLOFT PO SCH (09:23)
[2019-04-14 11:07] LABS: Anisocytosis Few; Basophils % (Manual) 0 % (0.0-1.8); Hypochromasia 1+; Total Cells Counted 100
[2019-04-14 11:08] LABS: Giant Platelets Rare; Macrocytosis Few; Platelet Clumps Rare; Platelet Estimate Consistent w Auto
[2019-04-14] MEDS: MORPHINE IV PRN (16:24)
[2019-04-14] MEDS: NACL 0.9% 1000 ML 1,000 ML IV SCH (17:23)
--- NOTE | 2019-04-14 19:10 | Progress Note ---
Assessment and Plan - Patient Problems (1) Acute encephalopathy Current Visit: Yes Status: Acute Plan to address problem: Secondary to hypoglycemia Improved rapidly (2) Hypoglycemia Current Visit: Yes Status: Acute Plan to address problem: Unclear why hypoglycemia happened Patient says that she did have meals and she did take low dose insulin at nighttime in the form of 3 units of regular insulin. Patient takes the Lantus in the morning. Will hold the Lantus for a while 1 day and start her on low-dose insulin with frequent Accu-Cheks. If necessary we'll increase it to moderate dose sliding scale protocol Needs f/u with Public Relations Account Supervisor (3) Seizure disorder Current Visit: Yes Status: Acute Plan to address problem: Continue Keppra (4) Hypothyroidism Current Visit: Yes Status: Chronic Qualifiers: Hypothyroidism type: acquired Qualified Code(s): E03.9 - Hypothyroidism, unspecified Plan to address problem: Continue Synthroid and check a TSH (5) Addisons disease Current Visit: Yes Status: Chronic Plan to address problem: Continue fludrocortisone and prednisone Patient counseled about taking fludrocortisone and prednisone regularly (6) Anemia Current Visit: Yes Status: Chronic Qualifiers: Anemia type: unspecified type Qualified Code(s): D64.9 - Anemia, unspecified Plan to address problem: Anemia workup (7) Malnutrition Current Visit: Yes Status: Chronic Qualifiers: Malnutrition type: protein-calorie malnutrition Protein-calorie malnutrition severity: moderate Qualified Code(s): E44.0 - Moderate protein- calorie malnutrition Plan to address problem: Dietitian consult (8) DVT prophylaxis Current Visit: No Status: Acute Plan to address problem: On Lovenox and GI prophylaxis Subjective Date of service: 04/14/19 Principal diagnosis: Severe Hypoglycemia Interval history: 28-year-old female with history of type 1 diabetes since age 6-year-old on Lantus 10 units at morning and sliding scale coverage rest of the day apparently had 3 units of insulin last night and her meals. Patient woke up at around 3 AM and check the blood glucose level which was around 320. Patient states that she woke up around 8:27 AM and felt very lethargic and passed out. [facility] from [facility] called the EMS . As per EMS blood glucose level was 10 and EMS was unable to obtain IV access. In the emergency room I/O was placed and dextrose given after which the patient woke up immediately and became more coherent. Patient is alert and oriented during my exam and able to answer questions. No fever or dysuria. Patient did not give any excessive insulin or missed a meal. Doing better Objective - Constitutional Vitals: Vital Signs - 12hr 04/14/19 04/14/19 04/14/19 08:11 08:58 10:25 Temperature 98.3 F Pulse Rate 65 Pulse Rate [ 72 Apical] Respiratory 18 18 Rate Blood Pressure 77/45 O2 Sat by Pulse 98 Oximetry 04/14/19 16:16 Temperature 99.3 F Pulse Rate 77 Pulse Rate [ Apical] Respiratory 18 Rate Blood Pressure 91/55 O2 Sat by Pulse 95 Oximetry General appearance: Present: no acute distress, well-nourished - EENT Eyes: PERRL, EOM intact ENT: hearing intact, clear oral mucosa Ears: bilateral: normal - Neck Neck: supple, normal ROM - Respiratory Respiratory effort: normal Respiratory: bilateral: CTA - Breasts Breasts: normal - Cardiovascular Rhythm: regular Heart Sounds: Present: S1 & S2. Absent: gallop, rub Extremities: pulses intact, No edema, normal color, Full ROM - Gastrointestinal General gastrointestinal: Present: soft, non-tender, non-distended, normal bowel sounds - Genitourinary Female genitourinary: normal - Integumentary Integumentary: clear, warm, dry - Musculoskeletal Musculoskeletal: 1, strength equal bilaterally - Neurologic Neurologic: moves all extremities - Psychiatric Psychiatric: memory intact, appropriate mood/affect, intact judgment & insight - Labs CBC & Chem 7: 04/14/19 06:05 04/14/19 06:05 Labs: Abnormal lab results 04/13/19 04/13/19 04/13/19 Range/Units 17:02 22:38 23:00 RBC (3.65-5.03) M/mm3 Hgb (10.1-14.3) gm/dl Hct (30.3-42.9) % MCH (28-32) pg Lymphocytes % (Manual) (13.4-35.0) % Potassium (3.6-5.0) mmol/L Chloride (98-107) mmol/L BUN (7-17) mg/dL POC Glucose 300 H (70-105) Hemoglobin A1c 11.9 H (4-6) % Calcium (8.4-10.2) mg/dL AST (5-40) units/L Total Protein (6.3-8.2) g/dL Albumin (3.9-5) g/dL Urine WBC (Auto) 19.0 H (0.0-6.0) /HPF 04/14/19 04/14/19 04/14/19 Range/Units 02:06 06:05 06:05 RBC 2.80 L (3.65-5.03) M/mm3 Hgb 7.3 L (10.1-14.3) gm/dl Hct 22.9 L (30.3-42.9) % MCH 26 L (28-32) pg Lymphocytes % (Manual) 55.0 H (13.4-35.0) % Potassium 3.3 L (3.6-5.0) mmol/L Chloride 107.3 H (98-107) mmol/L BUN 19 H (7-17) mg/dL POC Glucose < 40 L (70-105) Hemoglobin A1c (4-6) % Calcium 7.1 L (8.4-10.2) mg/dL AST 51 H (5-40) units/L Total Protein 4.3 L (6.3-8.2) g/dL Albumin 2.5 L (3.9-5) g/dL Urine WBC (Auto) (0.0-6.0) /HPF 04/14/19 04/14/19 Range/Units 10:30 14:25 RBC (3.65-5.03) M/mm3 Hgb (10.1-14.3) gm/dl Hct (30.3-42.9) % MCH (28-32) pg Lymphocytes % (Manual) (13.4-35.0) % Potassium (3.6-5.0) mmol/L Chloride (98-107) mmol/L BUN (7-17) mg/dL POC Glucose 151 H 176 H (70-105) Hemoglobin A1c (4-6) % Calcium (8.4-10.2) mg/dL AST (5-40) units/L Total Protein (6.3-8.2) g/dL Albumin (3.9-5) g/dL Urine WBC (Auto) (0.0-6.0) /HPF
[2019-04-14] MEDS: CORTEF PO SCH (20:28)
[2019-04-14] MEDS: LOVENOX SUB-Q SCH ×2 (22:05→22:07)
[2019-04-15] MEDS: MORPHINE IV PRN ×2 (02:29→16:46)
[2019-04-15] MEDS: HumaLOG SUB-Q SCH ×4 (02:30→18:47)
[2019-04-15] MEDS: NACL 0.9% 1000 ML 1,000 ML IV SCH ×2 (05:28→15:49)
[2019-04-15] MEDS: SYNTHROID PO SCH (05:29)
[2019-04-15] MEDS: ZOLOFT PO SCH (09:07)
[2019-04-15] MEDS: KEPPRA PO SCH ×2 (09:07→22:00)
[2019-04-15] MEDS: FLORINEF PO SCH (09:07)
[2019-04-15] MEDS: PEPCID PO SCH ×2 (09:08→22:00)
[2019-04-15] MEDS: SODIUM CHLORIDE FLUSH SYRINGE 10 ML IV SCH ×2 (09:08→22:00)
[2019-04-15] MEDS: NORCO 5/325 PO PRN (10:35)
[2019-04-15] MEDS: CORTEF PO SCH (10:36)
--- NOTE | 2019-04-15 14:02 | Progress Note ---
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 Patient takes the Lantus in the morning. Will hold the Lantus for a while 1 day and start her on low-dose insulin with frequent Accu-Cheks. If necessary we'll increase it to moderate dose sliding scale protocol Needs f/u with [employer] (3) Seizure disorder Current Visit: Yes Status: Acute Plan to address problem: Continue Keppra (4) Hypothyroidism Current Visit: Yes Status: Chronic Qualifiers: Hypothyroidism type: acquired Qualified Code(s): E03.9 - Hypothyroidism, unspecified Plan to address problem: Continue Synthroid and check a TSH (5) Addisons disease Current Visit: Yes Status: Chronic Plan to address problem: Continue fludrocortisone and prednisone Patient counseled about taking fludrocortisone and prednisone regularly (6) Anemia Current Visit: Yes Status: Chronic Qualifiers: Anemia type: unspecified type Qualified Code(s): D64.9 - Anemia, unspecified Plan to address problem: Anemia workup (7) Malnutrition Current Visit: Yes Status: Chronic Qualifiers: Malnutrition type: protein-calorie malnutrition Protein-calorie malnutrition severity: moderate Qualified Code(s): E44.0 - Moderate protein- calorie malnutrition Plan to address problem: Dietitian consult (8) DVT prophylaxis Current Visit: No Status: Acute Plan to address problem: On Lovenox and GI prophylaxis Subjective Date of service: 04/14/19 Principal diagnosis: Severe Hypoglycemia Interval history: 28-year-old female with history of type 1 diabetes since age 6-year-old on Lantus 10 units at morning and sliding scale coverage rest of the day apparently had 3 units of insulin last night and her meals. Patient woke up at around 3 AM and check the blood glucose level which was around 320. Patient states that she woke up around 8:27 AM and felt very lethargic and passed out. Someone from the half-way called the EMS . As per EMS blood glucose level was 10 and EMS was unable to obtain IV access. In the emergency room I/O was placed and dextrose given after which the patient woke up immediately and became more coherent. Patient is alert and oriented during my exam and able to answer questions. No fever or dysuria. Patient did not give any excessive insulin or missed a meal. Doing better History Interval history: Review of systems Constitutional: No fevers, no malaise, no joint pains CVS: No chest pain, no orthopnea, no pedal edema GI: No abdominal pain, no diarrhea, no vomiting, no constipation Respiratory: No shortness of breath, no wheezing, no coughing Hospitalist Physical - Physical exam Narrative exam: General.: Appears well, no distress, nontoxic HEENT: Moist mucous membranes, extraocular muscles intact, no lymphadenopathy Neck: supple Cardiac: S1-S2 heard Lungs: clear to auscultation bilaterally Abdomen: soft , nontender, nondistended, bowel sounds positive Extremities: no edema clubbing or cyanosis Skin: no rash or lesions Neurologic: no gross focal deficits Psych: calm, and cooperative - Constitutional Vitals: Temp Pulse Resp BP Pulse Ox 98.3 F 94 H 18 107/77 92 04/15/19 07:17 04/15/19 10:00 04/15/19 10:00 04/15/19 07:17 04/15/19 04:32 General appearance: Present: no acute distress, well-nourished Results - Labs CBC & Chem 7: 04/14/19 06:05 04/14/19 06:05 Labs: Laboratory Last Values WBC 7.8 K/mm3 (4.5-11.0) 04/14/19 06:05 RBC 2.80 M/mm3 (3.65-5.03) L 04/14/19 06:05 Hgb 7.3 gm/dl (10.1-14.3) L 04/14/19 06:05 Hct 22.9 % (30.3-42.9) L 04/14/19 06:05 MCV 82 fl (79-97) 04/14/19 06:05 MCH 26 pg (28-32) L 04/14/19 06:05 MCHC 32 % (30-34) 04/14/19 06:05 RDW 15.0 % (13.2-15.2) 04/14/19 06:05 Plt Count 217 K/mm3 (140-440) 04/14/19 06:05 Lymph % (Auto) Public Relations Director 04/14/19 06:05 Lymph # Public Relations Director 04/14/19 06:05 Add Manual Diff Complete 04/14/19 06:05 Total Counted 100 04/14/19 06:05 Seg Neuts % (Manual) 42.0 % (40.0-70.0) 04/14/19 06:05 Band Neutrophils % 0 % 04/14/19 06:05 Lymphocytes % (Manual) 55.0 % (13.4-35.0) H 04/14/19 06:05 Reactive Lymphs % (Man) 0 % 04/14/19 06:05 Monocytes % (Manual) 1.0 % (0.0-7.3) 04/14/19 06:05 Eosinophils % (Manual) 2.0 % (0.0-4.3) 04/14/19 06:05 Basophils % (Manual) 0 % (0.0-1.8) 04/14/19 06:05 Metamyelocytes % 0 % 04/14/19 06:05 Myelocytes % 0 % 04/14/19 06:05 Promyelocytes % 0 % 04/14/19 06:05 Blast Cells % 0 % 04/14/19 06:05 Nucleated RBC % Not Reportable 04/14/19 06:05 Seg Neutrophils # Man 3.3 K/mm3 (1.8-7.7) 04/14/19 06:05 Band Neutrophils # 0.0 K/mm3 04/14/19 06:05 Lymphocytes # (Manual) 4.3 K/mm3 (1.2-5.4) 04/14/19 06:05 Abs React Lymphs (Man) 0.0 K/mm3 04/14/19 06:05 Monocytes # (Manual) 0.1 K/mm3 (0.0-0.8) 04/14/19 06:05 Eosinophils # (Manual) 0.2 K/mm3 (0.0-0.4) 04/14/19 06:05 Basophils # (Manual) 0.0 K/mm3 (0.0-0.1) 04/14/19 06:05 Metamyelocytes # 0.0 K/mm3 04/14/19 06:05 Myelocytes # 0.0 K/mm3 04/14/19 06:05 Promyelocytes # 0.0 K/mm3 04/14/19 06:05 Blast Cells # 0.0 K/mm3 04/14/19 06:05 WBC Morphology Not Reportable 04/14/19 06:05 Hypersegmented Neuts Not Reportable 04/14/19 06:05 Hyposegmented Neuts Not Reportable 04/14/19 06:05 Hypogranular Neuts Not Reportable 04/14/19 06:05 Smudge Cells Not Reportable 04/14/19 06:05 Toxic Granulation Not Reportable 04/14/19 06:05 Toxic Vacuolation Not Reportable 04/14/19 06:05 Dohle Bodies Not Reportable 04/14/19 06:05 Pelger-Huet Anomaly Not Reportable 04/14/19 06:05 Fredrick Rods Not Reportable 04/14/19 06:05 Platelet Estimate Consistent w auto 04/14/19 06:05 Clumped Platelets Rare 04/14/19 06:05 Plt Clumps, EDTA Not Reportable 04/14/19 06:05 Large Platelets Not Reportable 04/14/19 06:05 Giant Platelets Rare 04/14/19 06:05 Platelet Satelliting Not Reportable 04/14/19 06:05 Plt Morphology Comment Not Reportable 04/14/19 06:05 RBC Morphology Not Reportable 04/14/19 06:05 Dimorphic RBCs Not Reportable 04/14/19 06:05 Polychromasia Not Reportable 04/14/19 06:05 Hypochromasia 1+ 04/14/19 06:05 Poikilocytosis Not Reportable 04/14/19 06:05 Anisocytosis Few 04/14/19 06:05 Microcytosis Not Reportable 04/14/19 06:05 Macrocytosis Few 04/14/19 06:05 Spherocytes Not Reportable 04/14/19 06:05 Pappenheimer Bodies Not Reportable 04/14/19 06:05 Sickle Cells Not Reportable 04/14/19 06:05 Target Cells Not Reportable 04/14/19 06:05 Tear Drop Cells Not Reportable 04/14/19 06:05 Ovalocytes Not Reportable 04/14/19 06:05 Helmet Cells Not Reportable 04/14/19 06:05 Lind-Marrero Bodies Not Reportable 04/14/19 06:05 [place] Rings Not Reportable 04/14/19 06:05 Fermin Cells Not Reportable 04/14/19 06:05 Bite Cells Not Reportable 04/14/19 06:05 Crenated Cell Not Reportable 04/14/19 06:05 Elliptocytes Not Reportable 04/14/19 06:05 Acanthocytes (Spur) Not Reportable 04/14/19 06:05 Rouleaux Not Reportable 04/14/19 06:05 Hemoglobin C Crystals Not Reportable 04/14/19 06:05 Schistocytes Not Reportable 04/14/19 06:05 Malaria parasites Not Reportable 04/14/19 06:05 Jose Bodies Not Reportable 04/14/19 06:05 Hem Pathologist Commnt No 04/14/19 06:05 Sodium 142 mmol/L (137-145) 04/14/19 06:05 Potassium 3.3 mmol/L (3.6-5.0) L 04/14/19 06:05 Chloride 107.3 mmol/L (98-107) H 04/14/19 06:05 Carbon Dioxide 26 mmol/L (22-30) D 04/14/19 06:05 Anion Gap 12 mmol/L 04/14/19 06:05 BUN 19 mg/dL (7-17) H 04/14/19 06:05 Creatinine 1.0 mg/dL (0.7-1.2) 04/14/19 06:05 Estimated GFR > 60 ml/min 04/14/19 06:05 BUN/Creatinine Ratio 19 % 04/14/19 06:05 Glucose 83 mg/dL (65-100) 04/14/19 06:05 POC Glucose 397 (70-105) H 04/15/19 10:38 Hemoglobin A1c 11.9 % (4-6) H 04/13/19 17:02 Calcium 7.1 mg/dL (8.4-10.2) L 04/14/19 06:05 Total Bilirubin 0.20 mg/dL (0.1-1.2) 04/14/19 06:05 Direct Bilirubin < 0.2 mg/dL (0-0.2) 04/13/19 17:02 Indirect Bilirubin 0.0 mg/dL 04/13/19 17:02 AST 51 units/L (5-40) H 04/14/19 06:05 ALT 37 units/L (7-56) 04/14/19 06:05 Alkaline Phosphatase 74 units/L (35-129) 04/14/19 06:05 Total Protein 4.3 g/dL (6.3-8.2) L 04/14/19 06:05 Albumin 2.5 g/dL (3.9-5) L 04/14/19 06:05 Albumin/Globulin Ratio 1.4 % 04/14/19 06:05 TSH 2.630 mlU/mL (0.270-4.200) 04/13/19 23:44 HCG, Qual Negative (Negative) 04/13/19 17:02 Urine Color Straw (Yellow) 04/13/19 23:00 Urine Turbidity Clear (Clear) 04/13/19 23:00 Urine pH 5.0 (5.0-7.0) 04/13/19 23:00 Ur Specific [place] 1.010 (1.003-1.030) 04/13/19 23:00 Urine Protein <15 mg/dl mg/dL (Negative) 04/13/19 23:00 Urine Glucose (UA) >=500 mg/dL (Negative) 04/13/19 23:00 Urine Ketones Neg mg/dL (Negative) 04/13/19 23:00 Urine Blood Neg (Negative) 04/13/19 23:00 Urine Nitrite Neg (Negative) 04/13/19 23:00 Urine Bilirubin Neg (Negative) 04/13/19 23:00 Urine Urobilinogen < 2.0 mg/dL (<2.0) 04/13/19 23:00 Ur Leukocyte Esterase Mod (Negative) 04/13/19 23:00 Urine WBC (Auto) 19.0 /HPF (0.0-6.0) H 04/13/19 23:00 Urine RBC (Auto) 4.0 /HPF (0.0-6.0) 04/13/19 23:00 U Epithel Cells (Auto) 1.0 /HPF (0-13.0) 04/13/19 23:00 Active Medications - Current Medications Current Medications: Generic Name Dose Route Start Last Admin Trade Name Freq PRN Reason Stop Dose Admin Acetaminophen 650 mg 04/13/19 21:33 Tylenol PO Q4H PRN Pain MILD(1-3)/Fever >100.5/STEWARD Acetaminophen/Hydrocodone Bitart 1 each 04/13/19 21:33 04/15/19 10:35 [place] 5/325 PO 1 each Q4HR PRN Administration Pain , Severe (7-10) Enoxaparin Sodium 40 mg 04/13/19 22:00 04/14/19 22:07 Lovenox SUB-Q Not Given QDAY@2200 [facility] Famotidine 20 mg 04/13/19 22:00 04/15/19 09:08 Pepcid PO 20 mg BID MARINO Administration Fludrocortisone Acetate 0.1 mg 04/13/19 22:00 04/15/19 09:07 Florinef PO 0.1 mg QDAY MARINO Administration Hydrocortisone Acetate 10 mg 04/14/19 20:00 04/15/19 10:36 Cortef PO 10 mg QAM MARINO Administration Hydrocortisone Acetate 5 mg 04/15/19 18:00 Cortef PO QPM [facility] Sodium Chloride 1,000 mls @ 75 mls/hr 04/13/19 22:00 04/15/19 05:28 Nacl 0.9% 1000 Ml IV 75 mls/hr DIRECT MARINO Administration Insulin Human Lispro 0 unit 04/15/19 16:30 Humalog SUB-Q AC [facility] Protocol Levetiracetam 500 mg 04/13/19 22:00 04/15/19 09:07 Keppra PO 500 mg BID MARINO Administration Levofloxacin 500 mg 04/15/19 14:00 Levaquin PO 04/17/19 10:01 Q24HR [facility] Levothyroxine Sodium 125 mcg 04/14/19 06:00 04/15/19 05:29 Synthroid PO 125 mcg DAILY@0600 [facility] Administration Morphine Sulfate 2 mg 04/13/19 21:34 04/15/19 02:29 Morphine IV 2 mg Q4H PRN Administration Pain, Moderate (4-6) Ondansetron HCl 4 mg 04/13/19 21:33 04/14/19 02:10 Zofran Odt PO 4 mg Q8HR PRN Administration Nausea Ondansetron HCl 4 mg 04/13/19 21:34 Zofran IV Q8H PRN Nausea And Vomiting Oxycodone/Acetaminophen 1 tab 04/13/19 21:34 04/14/19 22:04 Percocet 5/325 PO 1 tab Q6H PRN Administration Pain, Moderate (4-6) Sertraline HCl 25 mg 04/13/19 22:00 04/15/19 09:07 Zoloft PO 25 mg QDAY MARINO Administration Sodium Chloride 10 ml 04/13/19 22:00 04/15/19 09:08 Sodium Chloride Flush Syringe 10 Ml IV 10 ml BID MARINO Administration Sodium Chloride 10 ml 04/13/19 21:34 Sodium Chloride Flush Syringe 10 Ml IV PRN PRN LINE FLUSH Nutrition/Malnutrition Assess - Dietary Evaluation Nutrition/Malnutrition Findings: Nutrition Notes Start: 04/14/19 13:34 Freq: Status: Active Protocol: Document 04/14/19 13:34 AP (Rec: 04/14/19 14:19 AP [id number]) Co-Sign 04/14/19 13:34 Nutrition Notes Need for Assessment generated from: MD Order Initial or Follow up Brief Note Subjective/Other Information Pt consult for diet ed. Medical Office Technician provided diet ed to pt , pt already familiar with carb counting, how to take her insulin, how many CHO to ingest per meal, etc but stated she had a very hard time controlling her DM, waiting for insulin pump. Pt states she is still waiting for her insulin pump. States they're "waiting on her C-peptide bloodwork". Pt states she has gone for bloodwork once a week to have blood drawn and "they can't draw blood". Nutrition Intervention Revisit per MD consult or patient Sign Off request:
[2019-04-15] MEDS: LEVAQUIN PO SCH (15:49)
[2019-04-15] MEDS ORDERED: HumaLOG SUB-Q SCH (16:30)
[2019-04-15] MEDS ORDERED: CORTEF PO SCH (18:00)
[2019-04-15] MEDS: LOVENOX SUB-Q SCH (21:59)
[2019-04-16] MEDS: MORPHINE IV PRN ×2 (02:06→11:47)
[2019-04-16] MEDS: SYNTHROID PO SCH (05:12)
[2019-04-16] MEDS: NACL 0.9% 1000 ML 1,000 ML IV SCH (05:12)
[2019-04-16] MEDS ORDERED: LANTUS SUB-Q SCH (08:00)
[2019-04-16] MEDS: HumaLOG SUB-Q SCH ×2 (08:57→12:54)
[2019-04-16] MEDS: ZOLOFT PO SCH (09:03)
[2019-04-16] MEDS: PEPCID PO SCH (09:03)
[2019-04-16] MEDS: KEPPRA PO SCH (09:03)
[2019-04-16] MEDS: LEVAQUIN PO SCH (09:03)
[2019-04-16] MEDS: FLORINEF PO SCH (09:04)
[2019-04-16] MEDS: CORTEF PO SCH (09:04)
[2019-04-16] MEDS: SODIUM CHLORIDE FLUSH SYRINGE 10 ML IV SCH (09:04)
[2019-04-16 11:34] VITALS: BP 150/94
--- NOTE | 2019-04-16 12:20 | Discharge Summary ---
Providers - Providers Date of Admission: 04/13/19 18:11 Attending physician: SUE MCDANIEL MD 04/13/19 21:35 Consult to Dietitian/Nutrition [CONS] Routine Physician Instructions: Reason For Exam: Reason for Consult: Diet education Primary care physician: JAMES MILAN MD Hospitalization Condition: Good Hospital course: 28-year-old woman with history of Cowlitz's disease who presented to the hospital with altered mental status. She was treated with steroids and improved. After she improved she was started back on her insulins. The patient was counseled to take her p.m. dose of hydrocortisone no later than 2 PM for better effectiveness. Diagnosis Cowlitz's disease Adrenal crisis Hypoglycemia Insulin-dependent diabetes Acute metabolic encephalopathy Disposition: TO HOME OR SELFCARE Time spent for discharge: 33 mins Core Measure Documentation - Palliative Care Palliative Care/ Comfort Measures: Not Applicable - Core Measures Any of the following diagnoses?: none Exam - Constitutional Vitals: Temp Pulse Resp BP Pulse Ox 98.6 F 61 18 150/94 100 04/16/19 11:33 04/16/19 11:33 04/16/19 11:33 04/16/19 11:33 04/16/19 11:33 General appearance: Present: no acute distress, well-nourished - EENT Eyes: Present: PERRL ENT: hearing intact, clear oral mucosa - Neck Neck: Present: supple, normal ROM - Respiratory Respiratory effort: normal Respiratory: bilateral: CTA - Cardiovascular Heart Sounds: Present: S1 & S2. Absent: rub, click - Extremities Extremities: pulses symmetrical, No edema Peripheral Pulses: within normal limits - Abdominal General gastrointestinal: Present: soft, non-tender, non-distended, normal bowel sounds Female genitourinary: Present: normal - Integumentary Integumentary: Present: clear, warm, dry - Musculoskeletal Musculoskeletal: gait normal, strength equal bilaterally - Psychiatric Psychiatric: appropriate mood/affect, intact judgment & insight - Neurologic Neurologic: CNII-XII intact, moves all extremities Plan Follow up with: PRIMARY CARE, [Primary Care Provider] - 3-5 Days Prescriptions: Hydrocortisone [Cortef TAB] 5 mg PO QPM #30 tablet Hydrocortisone [Cortef TAB] 10 mg PO QAM #30 tablet
[2019-04-16] MEDS ORDERED: FLUSH HEPARIN IV ONE (15:17)
== END 2019-04-16 16:59 | disposition home or self-care (01) | DRG 637 ==
LOC: ED 15:26 → 4A 18:11
PROVIDERS: ADMIT Internal Medicine; ATTEND Internal Medicine
DX: E10.649 Type 1 diabetes mellitus with hypoglycemia without coma (principal); G93.41 Metabolic encephalopathy; E27.1 Primary adrenocortical insufficiency; E44.0 Moderate protein-calorie malnutrition; E03.9 Hypothyroidism, unspecified; E27.2 Addisonian crisis; D64.9 Anemia, unspecified; G40.909 Epilepsy, unspecified, not intractable, without status epilepticus; F32.9 Major depressive disorder, single episode, unspecified; Z79.4 Long term (current) use of insulin; Z79.899 Other long term (current) drug therapy; Z88.0 Allergy status to penicillin; Z88.1 Allergy status to other antibiotic agents; Z88.8 Allergy status to other drugs, medicaments and biological substances; Z90.49 Acquired absence of other specified parts of digestive tract; Z68.28 Body mass index [BMI] 28.0-28.9, adult; Z82.49 Family history of ischemic heart disease and other diseases of the circulatory system
CPT/HCPCS: 36415; 80048; 80053; 80076; 81001; 82533; 82962; 83036; 84443; 84703; 85007; 85025; 87086; 96374; G0378; J1642; J1650; J1815; J2270; J2405; J7030; J7121; Q0162

== ENCOUNTER 2019-04-18 22:41 | Emergency (ER) | payer MEDICAID ==
--- NOTE | 2019-04-18 23:04 | Emergency Department Report ---
HPI <ARIC MEJIAS - Last Filed: 04/19/19 10:48> - HPI HPI: 28-year-old female presents to the emergency department from home with complaint of dizziness and hyperglycemia. She has a history of insulin- dependent diabetes, [place]'s disease, hypothyroidism, epilepsy and stage II chronic kidney disease. She takes 10 units of Lantus every morning and is on a sliding scale on her Humalog and says she has been taking her medication compliantly. She knows her blood sugar was steadily rising throughout the day. Earlier this evening the patient says that she felt dizzy, as if she was going to pass out, and decided to call 911. She has a primary care physician but has not seen them regarding her current symptoms. No recent travel or sick contacts at home. She denies any fever, chest pain, shortness of breath, nausea or vomiting. <BEVERLY MYRICK S - Last Filed: 04/22/19 18:14> - General Time Seen by Provider: 04/18/19 22:44 ED Past Medical Hx <ARIC MEJIAS - Last Filed: 04/19/19 10:48> - Past Medical History Hx Hypertension: No Hx Heart Attack/AMI: No Hx Congestive Heart Failure: No Hx Diabetes: Yes Hx Deep Vein Thrombosis: No Hx Pulmonary Embolism: No Hx GERD: No Hx Liver Disease: No Hx Renal Disease: Yes Hx Arthritis: No Hx Seizures: Yes Hx Kidney Stones: No Hx Asthma: No Hx COPD: No Hx Tuberculosis: No Hx Dementia: No Hx HIV: No Additional medical history: hypotension, hypothyroidism, Dante's disease, Depression, Celiac - Surgical History Hx Coronary Stent: No Hx Pacemaker: No Hx Internal Defibrillator: No Hx Cholecystectomy: Yes Hx Appendectomy: Yes Additional Surgical History: 4. port right chest wall - Social History Smoking Status: Never Smoker <BEVERLY MYRICK S - Last Filed: 04/22/19 18:14> - Medications Home Medications: Home Medications Medication Instructions Recorded Confirmed Last Taken Type Levothyroxine [Synthroid] 125 mcg PO DAILY #30 tablet 02/17/19 04/13/19 04/12/19 Rx Lispro Insulin [HumaLOG] 0 unit SUB-Q ACHS units 02/17/19 04/13/19 04/12/19 Rx Sertraline [Zoloft] 25 mg PO QDAY #30 tablet 02/17/19 04/13/19 04/12/19 Rx levETIRAcetam [Keppra TAB] 500 mg PO BID #60 tablet 02/17/19 04/13/19 04/12/19 Rx Fludrocortisone [Florinef] 0.1 mg PO QDAY #30 tablet 02/25/19 04/13/19 04/12/19 Rx Ondansetron [Zofran ODT TAB] 4 mg PO Q8HR PRN #20 tab.rapdis 02/28/19 04/13/19 04/12/19 Rx Insulin Glargine [Lantus VIAL] 10 units SUB-Q BID #60 units 03/06/19 04/13/19 04/12/19 Rx Acetaminophen [Acetaminophen TAB] 2 tab PO Q4H PRN #30 tablet 04/11/19 04/13/19 04/10/19 Rx HYDROcodone/APAP 5-325 [[place] 1 each PO Q4HR PRN #12 tablet 04/11/19 04/13/19 04/12/19 Rx 5-325 mg TAB] Hydrocortisone [Cortef TAB] 5 mg PO QPM #30 tablet 04/16/19 Unknown Rx Hydrocortisone [Cortef TAB] 10 mg PO QAM #30 tablet 04/16/19 Unknown Rx ED Review of Systems ROS: Stated complaint: HYPERGLYCEMIA Other details as noted in HPI <ARIC MEJIAS - Last Filed: 04/19/19 10:48> ROS: Stated complaint: HYPERGLYCEMIA Other details as noted in HPI Comment: All other systems reviewed and negative Constitutional: denies: chills, fever Eyes: denies: eye pain, vision change ENT: denies: ear pain, throat pain Respiratory: denies: cough, shortness of breath Cardiovascular: denies: chest pain, palpitations Gastrointestinal: denies: abdominal pain, vomiting Genitourinary: denies: dysuria, discharge Musculoskeletal: denies: back pain, arthralgia Skin: denies: rash, lesions Neurological: other (dizziness). denies: headache <BEVERLY MYRICK - Last Filed: 04/22/19 18:14> Physical Exam - Physical Exam Vital Signs: Vital Signs 04/18/19 04/19/19 04/19/19 22:52 01:49 03:38 Temperature 98.2 F Pulse Rate 74 71 Respiratory 16 16 13 Rate Blood Pressure Blood Pressure 89/61 [Left] O2 Sat by Pulse 100 100 Oximetry 04/19/19 04/19/19 04/19/19 03:46 04:00 04:16 Temperature Pulse Rate Respiratory 18 13 18 Rate Blood Pressure Blood Pressure [Left] O2 Sat by Pulse Oximetry 04/19/19 04/19/19 04/19/19 04:30 04:45 04:51 Temperature 98.1 F Pulse Rate 82 80 Respiratory 15 16 16 Rate Blood Pressure 99/67 Blood Pressure [Left] O2 Sat by Pulse 97 Oximetry 04/19/19 04/19/19 04/19/19 05:01 05:06 05:15 Temperature 97.9 F Pulse Rate 86 78 77 Respiratory 19 13 17 Rate Blood Pressure 103/69 Blood Pressure [Left] O2 Sat by Pulse 94 96 Oximetry 04/19/19 04/19/19 04/19/19 05:31 05:45 06:01 Temperature Pulse Rate 76 70 93 H Respiratory 14 8 L 12 Rate Blood Pressure Blood Pressure [Left] O2 Sat by Pulse 98 99 97 Oximetry 04/19/19 04/19/19 04/19/19 06:15 06:31 06:45 Temperature Pulse Rate 58 L 65 Respiratory 10 L 14 15 Rate Blood Pressure Blood Pressure [Left] O2 Sat by Pulse 98 Oximetry 04/19/19 04/19/19 04/19/19 07:11 07:15 07:18 Temperature 97.3 F L Pulse Rate 79 58 L 62 Respiratory 32 H 15 15 Rate Blood Pressure Blood Pressure 120/83 [Left] O2 Sat by Pulse 100 Oximetry 04/19/19 04/19/19 04/19/19 07:31 07:45 08:01 Temperature Pulse Rate 62 59 L 67 Respiratory 21 14 13 Rate Blood Pressure Blood Pressure [Left] O2 Sat by Pulse Oximetry 04/19/19 04/19/19 08:15 08:31 Temperature Pulse Rate 83 63 Respiratory 22 11 L Rate Blood Pressure Blood Pressure [Left] O2 Sat by Pulse Oximetry <ARIC MEJIAS - Last Filed: 04/19/19 10:48> - Physical Exam Physical Exam: GENERAL: The patient is well-developed well-nourished. HENT: Normocephalic. Atraumatic. Patient has moist mucous membranes. EYES: Extraocular motions are intact. Pupils equal reactive to light bilaterally. No nystagmus. NECK: Supple. Trachea is midline. CHEST/LUNGS: Clear to auscultation. There is no respiratory distress noted. HEART/CARDIOVASCULAR: Regular. There is no tachycardia. There is no murmur. ABDOMEN: Abdomen is soft, nontender. Patient has normal bowel sounds. There is no abdominal distention. SKIN: Skin is warm and dry. NEURO: The patient is awake, alert, and oriented. The patient is cooperative. The patient has no focal neurologic deficits. Normal speech. Cranial nerves II through XII grossly intact. No pronator drift. No dysmetria. MUSCULOSKELETAL: There is no tenderness or deformity. There is no limitation range of motion. There is no evidence of acute injury. <BEVERLY MRYICK S - Last Filed: 04/22/19 18:14> ED Course Vital Signs 04/18/19 04/19/19 04/19/19 22:52 01:49 03:38 Temperature 98.2 F Pulse Rate 74 71 Respiratory 16 16 13 Rate Blood Pressure Blood Pressure 89/61 [Left] O2 Sat by Pulse 100 100 Oximetry 04/19/19 04/19/19 04/19/19 03:46 04:00 04:16 Temperature Pulse Rate Respiratory 18 13 18 Rate Blood Pressure Blood Pressure [Left] O2 Sat by Pulse Oximetry 04/19/19 04/19/19 04/19/19 04:30 04:45 04:51 Temperature 98.1 F Pulse Rate 82 80 Respiratory 15 16 16 Rate Blood Pressure 99/67 Blood Pressure [Left] O2 Sat by Pulse 97 Oximetry 04/19/19 04/19/19 04/19/19 05:01 05:06 05:15 Temperature 97.9 F Pulse Rate 86 78 77 Respiratory 19 13 17 Rate Blood Pressure 103/69 Blood Pressure [Left] O2 Sat by Pulse 94 96 Oximetry 04/19/19 04/19/19 04/19/19 05:31 05:45 06:01 Temperature Pulse Rate 76 70 93 H Respiratory 14 8 L 12 Rate Blood Pressure Blood Pressure [Left] O2 Sat by Pulse 98 99 97 Oximetry 04/19/19 04/19/19 04/19/19 06:15 06:31 06:45 Temperature Pulse Rate 58 L 65 Respiratory 10 L 14 15 Rate Blood Pressure Blood Pressure [Left] O2 Sat by Pulse 98 Oximetry 1004/19/19 04/19/19 07:11 07:15 07:18 Temperature 97.3 F L Pulse Rate 79 58 L 62 Respiratory 32 H 15 15 Rate Blood Pressure Blood Pressure 120/83 [Left] O2 Sat by Pulse 100 Oximetry 04/19/19 04/19/19 04/19/19 07:31 07:45 08:01 Temperature Pulse Rate 62 59 L 67 Respiratory 21 14 13 Rate Blood Pressure Blood Pressure [Left] O2 Sat by Pulse Oximetry 04/19/19 04/19/19 08:15 08:31 Temperature Pulse Rate 83 63 Respiratory 22 11 L Rate Blood Pressure Blood Pressure [Left] O2 Sat by Pulse Oximetry - Reevaluation(s) Reevaluation #1: 04/19/19 10:48 Accu-Cheks are improved. Laboratory studies appear to be at baseline. Nursing team reports to me that patient was able to eat without difficulty. Urinalysis is chronically abnormal. Multiple recent urine cultures have been negative. Patient suitable for discharge at this point in time. This patient is familiar to me. <ARIC MEJIAS - Last Filed: 04/19/19 10:48> ED Medical Decision Making - Lab Data Result diagrams: 04/18/19 23:08 04/18/19 23:08 <ARIC MEJIAS - Last Filed: 04/19/19 10:48> - Lab Data Result diagrams: 04/18/19 23:08 04/18/19 23:08 - EKG Data -: EKG Interpreted by Me EKG shows normal: sinus rhythm, axis, intervals (prolonged QT and QTC intervals), QRS complexes, ST-T waves Rate: normal - EKG Data When compared to previous EKG there are: changes noted (prolonged QT and QTC intervals) Interpretation: other (prolonged QT and QTC intervals. No STEMI) - Medical Decision Making This patient initially came in with a complaint of some dizziness that she believes is related to her hyperglycemia. The patient did have hyperglycemia with a blood sugar of about 500. No venous acidosis or elevated anion gap and the patient does not appear to be in diabetic ketoacidosis. She was given some IV fluid resuscitation, a dose of IV insulin. The patient also has a history of anemia and her hemoglobin today is 7.1. This is only slightly decreased from her recent visit/admission. However, this may be part of the reason for the patient's dizziness symptoms showing some symptomatic anemia and therefore the patient has been given 1 unit of packed red blood cells for transfusion. Rest the patient's labs are unremarkable. Her vital signs stable throughout her ED course. I was talking to the patient about her lab results and discussing the plan for discharge with outpatient follow-up. At this point, the patient asked for the blood sugar to be checked yet again. Her blood sugar had gone down to less than 20. I think there is a possibility that the patient has given herself some exogenous insulin. She had a Accu-Chek blood sugar of about 300 at around 2 PM. She did not receive any further IV fluid resuscitation or insulin and her blood sugar has dropped significantly. The half-life for the insulin is only about 1.5 - 2 hours. However the patient will still be treated for hypoglycemia as usual. She has been given an amp of D50 and will be given a meal tray. We will continue to check her blood sugar levels and trend them. <BEVERLY MYRICK S - Last Filed: 04/22/19 18:14> Critical care attestation.: If time is entered above; I have spent that time in minutes in the direct care of this critically ill patient, excluding procedure time. <ARIC MEJIAS - Last Filed: 04/19/19 10:48> Critical care attestation.: If time is entered above; I have spent that time in minutes in the direct care of this critically ill patient, excluding procedure time. <BEVERLY MYRICK S - Last Filed: 04/22/19 18:14> ED Disposition Is pt being admited?: No Does the pt Need Aspirin: No <ARIC MEJIAS - Last Filed: 04/19/19 10:48> Is pt being admited?: No <BEVERLY MYRICK S - Last Filed: 04/22/19 18:14> Clinical Impression: Dizziness, Hyperglycemia Anemia Qualifiers: Anemia type: unspecified type Qualified Code(s): D64.9 - Anemia, unspecified Diabetes mellitus with hyperglycemia Qualifiers: Diabetes mellitus type: type 1 Qualified Code(s): E10.65 - Type 1 diabetes mellitus with hyperglycemia CKD (chronic kidney disease) Qualifiers: Chronic kidney disease stage: unspecified stage Qualified Code(s): N18.9 - Chronic kidney disease, unspecified Disposition: - TO HOME OR SELFCARE Condition: Stable Instructions: Hypocalcemia (ED), Lightheadedness (ED), Dizziness (ED), Anemia (ED), Diabetic Hyperglycemia (ED) Additional Instructions: The Please follow-up with your primary care physician in the next few days. Return to the emergency Department with any worsening of your symptoms or any acute distress. Referrals: Primary Care Physician, Your [Other] - 2-3 Days
[2019-04-18 23:22] LABS: Hematocrit 22.7 % (30.3-42.9); Hemoglobin 7.1 gm/dl (10.1-14.3); Mean Corpuscular HGB Conc 31 % (30-34); Mean Corpuscular Volume 83 fl (79-97); Platelet Count 220 K/mm3 (140-440); Red Blood Count 2.74 M/mm3 (3.65-5.03); Red Cell Distribution Width 15.1 % (13.2-15.2)
[2019-04-18 23:46] LABS: Albumin 2.7 g/dL (3.9-5); Calcium 6.9 mg/dL (8.4-10.2)
[2019-04-18] MEDS ORDERED: HumuLIN R IV ONE (23:53)
[2019-04-18] MEDS ORDERED: NACL 0.9% 1000 ML 1,000 ML IV ONE (23:54)
[2019-04-19] MEDS ORDERED: NACL 0.9% 500 ML 500 ML IV ONE (00:52)
[2019-04-19 01:09] LABS: Anisocytosis 1+; Hypochromasia 1+; Platelet Estimate Consistent w Auto; Poikilocytosis 1+; Total Cells Counted 100
[2019-04-19] MEDS ORDERED: NACL 0.9% 500 ML 500 ML ONE (04:47)
[2019-04-19] MEDS ORDERED: D50W (25GM) Syringe IV ONE ×3 (05:57→09:17)
[2019-04-19 06:57] LABS: Bilirubin,Urine NEG (Negative); Blood,Urine NEG (Negative); Color,Urine Colorless (Yellow); Mucus,Urine FEW /HPF; Protein,Urine <15 mg/dL mg/dL (Negative); RBC,Urine < 1.0 /HPF (0.0-6.0); Urobilinogen,Urine < 2.0 mg/dL (<2.0)
[2019-04-19] MEDS ORDERED: D50W (25GM) Vial IV ONE (09:17)
[2019-04-19] MEDS ORDERED: REGLAN PO ONE (10:13)
[2019-04-19] MEDS ORDERED: FLUSH HEPARIN IV ONE (11:26)
[2019-04-19 11:47] VITALS: BP 145/91
== END 2019-04-19 11:14 | disposition home or self-care (01) ==
LOC: ED 22:41
DX: E11.22 Type 2 diabetes mellitus with diabetic chronic kidney disease (principal); E11.65 Type 2 diabetes mellitus with hyperglycemia; N18.9 Chronic kidney disease, unspecified; F32.9 Major depressive disorder, single episode, unspecified; E03.9 Hypothyroidism, unspecified; Z79.4 Long term (current) use of insulin; Z79.84 Long term (current) use of oral hypoglycemic drugs; Z90.49 Acquired absence of other specified parts of digestive tract; Z79.899 Other long term (current) drug therapy; Z88.0 Allergy status to penicillin; Z88.1 Allergy status to other antibiotic agents; Z88.8 Allergy status to other drugs, medicaments and biological substances
CPT/HCPCS: 36415; 36430; 80053; 81001; 82805; 82962; 84443; 84703; 85007; 85025; 86850; 86900; 86901; 86920; 87086; 93005; 93010; 96361; 96374; 96375; 99284; J1642; J7030; J7040; P9016; J1815

== ENCOUNTER 2019-05-06 23:45 | Emergency (ER) | payer MEDICAID ==
[2019-05-07] MEDS ORDERED: ONDANSETRON 4 MG ODT TAB PO ONE (00:20)
[2019-05-07] MEDS ORDERED: ONDANSETRON 4 MG ODT TAB ONE (00:22)
[2019-05-07 01:37] LABS: Mean Corpuscular HGB Conc 32 % (30-34); Mean Corpuscular Volume 81 fl (79-97); Platelet Count 314 K/mm3 (140-440); Red Blood Count 4.19 M/mm3 (3.65-5.03)
[2019-05-07] MEDS ORDERED: SODIUM CHLORIDE 0.9% 1000 ML 1,000 ML IV ONE ×2 (01:44→03:42)
[2019-05-07 02:01] LABS: Albumin 3.8 g/dL (3.9-5); Calcium 8.4 mg/dL (8.4-10.2)
[2019-05-07] MEDS ORDERED: INSULIN REGULAR, HUMAN 100 UNITS/1 ML IV ONE ×2 (02:22→03:43)
[2019-05-07 03:35] LABS: Basophils % (Manual) 0 % (0.0-1.8); Total Cells Counted 100
[2019-05-07 03:37] LABS: Platelet Estimate Consistent w Auto; Stomatocytes Few
--- NOTE | 2019-05-07 03:54 | Emergency Department Report ---
HPI <HEATHER BENÍTEZ - Last Filed: 05/07/19 05:19> - HPI HPI: 28-year-old female presents to the emergency department with a complaint of uncontrolled blood sugar, nausea and vomiting, that has been going on for the past 3 days. She says that she checks her blood sugar at home and has been critically high on Accu-Chek. The patient takes 10 units of Lantus per day and is on a sliding scale of regular insulin. The patient was just recently admitted to this hospital on 04/25 for hyperglycemia and complications of her diabetes. She denies any fever, chest pain, shortness of breath. She has not taken any other medications, besides her home meds, as treatment prior to presentation today. Her primary care physician is Dr. Jeronimo, and her buffer nickel is Dr Edwards. <BEVERLY MYRICK - Last Filed: 05/07/19 19:39> - General Chief Complaint: Hyperglycemia Time Seen by Provider: 05/07/19 00:54 ED Past Medical Hx <HEATHER BENÍTEZ - Last Filed: 05/07/19 05:19> - Past Medical History Previous Medical History?: Yes Hx Hypertension: No Hx Heart Attack/AMI: No Hx Congestive Heart Failure: No Hx Diabetes: Yes Hx Deep Vein Thrombosis: No Hx Pulmonary Embolism: No Hx GERD: No Hx Liver Disease: No Hx Renal Disease: No Hx Sickle Cell Disease: No Hx Arthritis: No Hx Headaches / Migraines: No Hx Seizures: No Hx Kidney Stones: No Hx Asthma: No Hx COPD: No Hx Tuberculosis: No Hx Dementia: No Hx HIV: No Additional medical history: hypotension, hypothyroidism, [place]'s disease, Depression, Celiac - Surgical History Hx Coronary Stent: No Hx Open Heart Surgery: No Hx Pacemaker: No Hx Internal Defibrillator: No Hx Cholecystectomy: No Hx Appendectomy: No Hx Breast Surgery: No Additional Surgical History: 4. port right chest wall - Social History Smoking Status: Never Smoker Substance Use Type: None <BEVERLY MYRICK - Last Filed: 05/07/19 19:39> - Medications Home Medications: Home Medications Medication Instructions Recorded Confirmed Last Taken Type Levothyroxine [Synthroid] 125 mcg PO DAILY #30 tablet 02/17/19 04/26/19 04/12/19 Rx Lispro Insulin [HumaLOG] 0 unit SUB-Q ACHS units 0804/26/19 04/12/19 Rx Sertraline [Zoloft] 25 mg PO QDAY #30 tablet 02/17/19 04/26/19 04/12/19 Rx levETIRAcetam [Keppra TAB] 500 mg PO BID #60 tablet 02/17/19 04/26/19 04/12/19 Rx Fludrocortisone [Florinef] 0.1 mg PO QDAY #30 tablet 02/25/19 04/26/19 04/12/19 Rx Ondansetron [Zofran ODT TAB] 4 mg PO Q8HR PRN #20 tab.rapdis 02/28/19 04/26/19 04/12/19 Rx Acetaminophen [Acetaminophen TAB] 2 tab PO Q4H PRN #30 tablet 04/11/19 04/26/19 04/10/19 Rx HYDROcodone/APAP 5-325 [[place] 1 each PO Q4HR PRN #12 tablet 04/11/19 04/26/19 04/12/19 Rx 5-325 mg TAB] Hydrocortisone [Cortef TAB] 5 mg PO QPM #30 tablet 04/16/19 04/26/19 Unknown Rx Hydrocortisone [Cortef TAB] 10 mg PO QAM #30 tablet 04/16/19 04/26/19 Unknown Rx Insulin Glargine [Lantus VIAL] 10 units SUB-Q QAM #60 units 04/29/19 04/26/19 04/12/19 Rx ED Review of Systems ROS: Stated complaint: HIGH BLOOD SUGAR Other details as noted in HPI <HEATHER BENÍTEZ - Last Filed: 05/07/19 05:19> ROS: Stated complaint: HIGH BLOOD SUGAR Other details as noted in HPI Comment: All other systems reviewed and negative Constitutional: denies: chills, fever Eyes: denies: eye pain, vision change ENT: denies: ear pain, throat pain Respiratory: denies: cough, shortness of breath Cardiovascular: denies: chest pain, palpitations Endocrine: increased thirst Gastrointestinal: abdominal pain, nausea, vomiting Genitourinary: denies: dysuria, discharge Musculoskeletal: denies: back pain, arthralgia Neurological: denies: headache <BEVERLY MYRICK - Last Filed: 05/07/19 19:39> Physical Exam - Physical Exam Vital Signs: Vital Signs 05/07/19 05/07/19 05/07/19 00:04 02:16 02:30 Temperature 98.6 F Pulse Rate 113 H 76 68 Respiratory 18 10 L 9 L Rate Blood Pressure 87/53 90/59 90/59 O2 Sat by Pulse 98 96 96 Oximetry 05/07/19 04:00 Temperature Pulse Rate 68 Respiratory 8 L Rate Blood Pressure 81/55 O2 Sat by Pulse Oximetry <HEATHER BENÍTEZ - Last Filed: 05/07/19 05:19> - Physical Exam Vital Signs: Vital Signs 05/07/19 05/07/19 00:04 02:16 Temperature 98.6 F Pulse Rate 113 H 76 Respiratory 18 10 L Rate Blood Pressure 87/53 90/59 O2 Sat by Pulse 98 96 Oximetry Physical Exam: GENERAL: The patient is well-developed well-nourished. HENT: Normocephalic. Atraumatic. Patient has moist mucous membranes. EYES: Extraocular motions are intact. Pupils equal reactive to light bilaterally. NECK: Supple. Trachea is midline. CHEST/LUNGS: Clear to auscultation. There is no respiratory distress noted. HEART/CARDIOVASCULAR: Regular. There is mild tachycardia. There is no murmur. ABDOMEN: Abdomen is soft, nontender. Patient has normal bowel sounds. There is no abdominal distention. SKIN: Skin is warm and dry. NEURO: The patient is awake, alert, and oriented. The patient is cooperative. Normal speech. MUSCULOSKELETAL: There is no tenderness or deformity. There is no evidence of acute injury. <BEVERLY MYRICK - Last Filed: 05/07/19 19:39> ED Course Vital Signs 05/07/19 05/07/19 05/07/19 00:04 02:16 02:30 Temperature 98.6 F Pulse Rate 113 H 76 68 Respiratory 18 10 L 9 L Rate Blood Pressure 87/53 90/59 90/59 O2 Sat by Pulse 98 96 96 Oximetry 05/07/19 04:00 Temperature Pulse Rate 68 Respiratory 8 L Rate Blood Pressure 81/55 O2 Sat by Pulse Oximetry - Reevaluation(s) Reevaluation #1: 05/07/19 05:19 Patient's glucose improved to 213. Patient's sleeping in blood pressure was 90 systolic. Patient does run low and she is small stature and is back to have a slightly low blood pressure while sleep. Patient is asymptomatic and can be discharged home. <HEATHER BENÍTEZ Last Filed: 05/07/19 05:19> Vital Signs 05/07/19 05/07/19 00:04 02:16 Temperature 98.6 F Pulse Rate 113 H 76 Respiratory 18 10 L Rate Blood Pressure 87/53 90/59 O2 Sat by Pulse 98 96 Oximetry <BEVERLY MYRICK [place] - Last Filed: 05/07/19 19:39> ED Medical Decision Making - Lab Data Result diagrams: 05/07/19 01:30 05/07/19 01:30 <HEATHER BENÍTEZ - Last Filed: 05/07/19 05:19> - Lab Data Result diagrams: 05/07/19 01:30 05/07/19 01:30 - Medical Decision Making This patient presents to the emergency department with complaint of uncontrolled diabetes and some nausea with vomiting. On examination she is awake, alert oriented and does not appear in any acute distress. She was given 2 different doses of Zofran and was able to pass oral challenge prior to discharge. Her blood sugar was greater than 500 on serum blood draw. The patient does not appear to be in diabetic ketoacidosis as there is no venous acidosis and no significant elevation in the anion gap. She was given 2 L of IV fluid and 2 different doses of IV insulin and her blood sugar came down to a much more reasonable level. My colleague was able to discharge the patient from the emergency department. She had been instructed to follow-up with her primary care physician and buffer nickel and she will return to the ER with any worsening of her symptoms or any acute distress. - Differential Diagnosis DKA, HHNK, Viral gastroenteritis <BEVERLY MYRICK [place] - Last Filed: 05/07/19 19:39> Critical care attestation.: If time is entered above; I have spent that time in minutes in the direct care of this critically ill patient, excluding procedure time. <HEATHER BENÍTEZ Last Filed: 05/07/19 05:19> Critical Care Time: No Critical care attestation.: If time is entered above; I have spent that time in minutes in the direct care of this critically ill patient, excluding procedure time. <BEVERLY MYRICK - Last Filed: 05/07/19 19:39> ED Disposition Is pt being admited?: No Does the pt Need Aspirin: No Time of Disposition: 05:21 <HEATHER BENÍTEZ Filed: 05/07/19 05:19> Is pt being admited?: No <BEVERLY MYRICK - Last Filed: 05/07/19 19:39> Clinical Impression: Hyperglycemia Disposition: DC- TO HOME OR SELFCARE Condition: Stable Instructions: Diabetic Hyperglycemia (ED) Referrals: PRIMARY CARE, [Primary Care Provider] - 3-5 Days
[2019-05-07] MEDS ORDERED: METOCLOPRAMIDE 10 MG/2 ML INJ IV ONE (03:56)
[2019-05-07 05:42] VITALS: BP 96/59
== END 2019-05-07 05:40 | disposition home or self-care (01) ==
LOC: ED 23:45
DX: E11.65 Type 2 diabetes mellitus with hyperglycemia (principal); Z98.890 Other specified postprocedural states; Z79.4 Long term (current) use of insulin; Z88.0 Allergy status to penicillin; Z88.1 Allergy status to other antibiotic agents; Z88.8 Allergy status to other drugs, medicaments and biological substances; Z79.899 Other long term (current) drug therapy
CPT/HCPCS: 36415; 80053; 82805; 82962; 84703; 85007; 85025; 96361; 96374; 96375; 96376; 99284; J2765; J7030; J1815; Q0162

== ENCOUNTER 2019-05-12 17:44 | Emergency (ER) | payer MEDICAID ==
--- NOTE | 2019-05-12 18:35 | Event Note ---
ED Screening Note Date of service: 05/12/19 Time: 18:34 ED Screening Note: Pt complains thirst , N/V, and body aches x 1 week BG>500 Type 1 DM This initial assessment/diagnostic orders/clinical plan/treatment(s) is/are subject to change based on patients health status, clinical progression and re- assessment by fellow clinical providers in the ED. Further treatment and workup at subsequent clinical providers discretion. Patient/guardian urged not to elope from the ED as their condition may be serious if not clinically assessed and managed. Initial orders include: Labs
--- NOTE | 2019-05-12 23:34 | Emergency Department Report ---
ED General Adult HPI - General Chief complaint: Hyperglycemia Stated complaint: BG IS HIGH Time Seen by Provider: 05/12/19 23:32 Source: patient, EMS Mode of arrival: Ambulatory Limitations: No Limitations - History of Present Illness Initial comments: 28 y.o. female with history of diabetes mellitus presents with platelets of elevated blood glucose. Patient complains of polyuria and polydipsia. Patient complains of nausea. Patient denies any hematemesis. Patient states that she has been compliant with her insulin therapy. Patient denies any chest pain or shortness of breath at current time. - Related Data Previous Rx's Medication Instructions Recorded Last Taken Type Levothyroxine [Synthroid] 125 mcg PO DAILY #30 tablet 02/17/19 04/12/19 Rx Lispro Insulin [HumaLOG] 0 unit SUB-Q ACHS units 02/17/19 04/12/19 Rx Sertraline [Zoloft] 25 mg PO QDAY #30 tablet 02/17/19 04/12/19 Rx levETIRAcetam [Keppra TAB] 500 mg PO BID #60 tablet 02/17/19 04/12/19 Rx Fludrocortisone [Florinef] 0.1 mg PO QDAY #30 tablet 02/25/19 04/12/19 Rx Ondansetron [Zofran ODT TAB] 4 mg PO Q8HR PRN #20 tab.rapdis 02/28/19 04/12/19 Rx Acetaminophen [Acetaminophen TAB] 2 tab PO Q4H PRN #30 tablet 04/11/19 04/10/19 Rx HYDROcodone/APAP 5-325 [[place] 1 each PO Q4HR PRN #12 tablet 04/11/19 04/12/19 Rx 5-325 mg TAB] Hydrocortisone [Cortef TAB] 5 mg PO QPM #30 tablet 04/16/19 Unknown Rx Hydrocortisone [Cortef TAB] 10 mg PO QAM #30 tablet 04/16/19 Unknown Rx Insulin Glargine [Lantus VIAL] 10 units SUB-Q QAM #60 units 04/29/19 04/12/19 Rx Allergies Allergy/AdvReac Type Severity Reaction Status Date / Time Penicillins Allergy Angioedema Verified 12/31/18 16:01 vortioxetine Allergy Unknown Verified 12/31/18 16:01 [From Trintellix] ziprasidone [From Geodon] Allergy Angioedema Verified 12/31/18 16:01 vancomycin AdvReac Itching Verified 12/31/18 16:01 ED Review of Systems ROS: Stated complaint: BG IS HIGH Other details as noted in HPI Constitutional: denies: chills, fever Eyes: denies: eye pain, eye discharge, vision change ENT: denies: ear pain, throat pain Respiratory: denies: cough, shortness of breath, wheezing Cardiovascular: denies: chest pain, palpitations Endocrine: increased thirst, increased urine Gastrointestinal: nausea Genitourinary: denies: urgency, dysuria, discharge Musculoskeletal: denies: back pain, joint swelling, arthralgia Skin: denies: rash, lesions Neurological: denies: headache, weakness, paresthesias Psychiatric: denies: anxiety, depression Hematological/Lymphatic: denies: easy bleeding, easy bruising ED Past Medical Hx - Past Medical History Previous Medical History?: Yes Hx Hypertension: No Hx Heart Attack/AMI: No Hx Congestive Heart Failure: No Hx Diabetes: Yes Hx Deep Vein Thrombosis: No Hx Pulmonary Embolism: No Hx GERD: No Hx Liver Disease: No Hx Renal Disease: No Hx Sickle Cell Disease: No Hx Arthritis: No Hx Headaches / Migraines: No Hx Seizures: Yes Hx Kidney Stones: No Hx Asthma: No Hx COPD: No Hx Tuberculosis: No Hx Dementia: No Hx HIV: No Additional medical history: hypotension, hypothyroidism, Owen's disease, Depression, Celiac - Surgical History Past Surgical History?: Yes Hx Coronary Stent: No Hx Open Heart Surgery: No Hx Pacemaker: No Hx Internal Defibrillator: No Hx Cholecystectomy: Yes Hx Appendectomy: Yes Hx Breast Surgery: No Additional Surgical History: 4. port right chest wall - Social History Smoking Status: Never Smoker Substance Use Type: None - Medications Home Medications: Home Medications Medication Instructions Recorded Confirmed Last Taken Type Levothyroxine [Synthroid] 125 mcg PO DAILY #30 tablet 02/17/19 04/26/19 04/12/19 Rx Lispro Insulin [HumaLOG] 0 unit SUB-Q ACHS units 02/17/19 04/26/19 04/12/19 Rx Sertraline [Zoloft] 25 mg PO QDAY #30 tablet 02/17/19 04/26/19 04/12/19 Rx levETIRAcetam [Keppra TAB] 500 mg PO BID #60 tablet 02/17/19 04/26/19 04/12/19 Rx Fludrocortisone [Florinef] 0.1 mg PO QDAY #30 tablet 02/25/19 04/26/19 04/12/19 Rx Ondansetron [Zofran ODT TAB] 4 mg PO Q8HR PRN #20 tab.rapdis 02/28/19 04/26/19 04/12/19 Rx Acetaminophen [Acetaminophen TAB] 2 tab PO Q4H PRN #30 tablet 04/11/19 04/26/19 04/10/19 Rx HYDROcodone/APAP 5-325 [[place] 1 each PO Q4HR PRN #12 tablet 04/11/19 04/26/19 04/12/19 Rx 5-325 mg TAB] Hydrocortisone [Cortef TAB] 5 mg PO QPM #30 tablet 04/16/19 04/26/19 Unknown Rx Hydrocortisone [Cortef TAB] 10 mg PO QAM #30 tablet 04/16/19 04/26/19 Unknown Rx Insulin Glargine [Lantus VIAL] 10 units SUB-Q QAM #60 units 04/29/19 04/26/19 04/12/19 Rx ED Physical Exam - General Limitations: No Limitations General appearance: alert, in no apparent distress, other (dehydrated) - Head Head exam: Present: atraumatic, normocephalic - Eye Eye exam: Present: normal appearance - ENT ENT exam: Present: mucous membranes dry - Neck Neck exam: Present: normal inspection - Respiratory Respiratory exam: Present: normal lung sounds bilaterally. Absent: respiratory distress - Cardiovascular Cardiovascular Exam: Present: regular rate, normal rhythm. Absent: systolic mu rmur, diastolic murmur, rubs, gallop - GI/Abdominal GI/Abdominal exam: Present: soft, normal bowel sounds - Extremities Exam Extremities exam: Present: normal inspection - Back Exam Back exam: Present: normal inspection - Neurological Exam Neurological exam: Present: alert, oriented X3 - Psychiatric Psychiatric exam: Present: normal affect, normal mood - Skin Skin exam: Present: warm, dry, intact, normal color. Absent: rash ED Course Vital Signs 05/12/19 05/12/19 05/13/19 18:35 22:17 00:30 Temperature 97.5 F L 97.4 F L Pulse Rate 83 83 Respiratory 17 18 Rate Blood Pressure 115/83 130/76 Blood Pressure 97/69 [Left] O2 Sat by Pulse 100 100 99 Oximetry 05/13/19 05/13/19 05/13/19 01:00 01:30 02:00 Temperature Pulse Rate Respiratory Rate Blood Pressure 130/76 130/76 106/75 Blood Pressure [Left] O2 Sat by Pulse 100 100 100 Oximetry 05/13/19 05/13/19 05/13/19 02:30 03:00 03:30 Temperature Pulse Rate Respiratory Rate Blood Pressure 109/74 114/82 108/73 Blood Pressure [Left] O2 Sat by Pulse 100 99 100 Oximetry 05/13/19 04:00 Temperature Pulse Rate Respiratory Rate Blood Pressure 114/78 Blood Pressure [Left] O2 Sat by Pulse 100 Oximetry ED Medical Decision Making - Lab Data Result diagrams: 05/12/19 18:36 05/12/19 18:36 - Medical Decision Making Patient received 10 units of IV insulin and two liters of NS bolus and her blood glucose was 484 after these interventions. Patient was then given 10 units of regular insulin in addition to 1.5 Liters of IV fluids and her blood glucose downtrended to 284. Patient has no evidence of DKA and will be discharged. Patient has had transaminitis present in January 2019 which was higher than today and this issue appears to be chronic and can be follow up as an outpatient. Patient currently sleeping and in no acute distress. - Differential Diagnosis Dehydration; Electrolyte Abnormality; Anemia; Critical care attestation.: If time is entered above; I have spent that time in minutes in the direct care of this critically ill patient, excluding procedure time. ED Disposition Clinical Impression: Diabetes mellitus with hyperglycemia Disposition: DC-01 TO HOME OR SELFCARE Is pt being admited?: No Condition: Stable Instructions: Diabetes Mellitus Type 2 in Adults (ED) Time of Disposition: 04:44 Print Language: ITALIAN
[2019-05-13] MEDS ORDERED: SODIUM CHLORIDE 0.9% 1000 ML 2,000 ML ONE (00:30)
[2019-05-13] MEDS ORDERED: ONDANSETRON 4 MG/2 ML INJ ONE (00:30)
[2019-05-13] MEDS ORDERED: INSULIN REGULAR, HUMAN 100 UNITS/1 ML ONE ×2 (00:31→01:58)
[2019-05-13] MEDS ORDERED: SODIUM CHLORIDE 0.9% 500 ML 500 ML ONE (01:57)
[2019-05-13] MEDS ORDERED: SODIUM CHLORIDE 0.9% 1000 ML 1,000 ML ONE (01:57)
[2019-05-13 02:38] LABS: Bilirubin,Urine NEG (Negative); Blood,Urine NEG (Negative); Color,Urine Colorless (Yellow); Protein,Urine <15 mg/dL mg/dL (Negative); Urobilinogen,Urine < 2.0 mg/dL (<2.0)
[2019-05-13 03:59] LABS: Hematocrit 31.8 % (30.3-42.9); Hemoglobin 9.9 gm/dl (10.1-14.3); Mean Corpuscular HGB Conc 31 % (30-34); Mean Corpuscular Volume 84 fl (79-97); Platelet Count 181 K/mm3 (140-440); Red Cell Distribution Width 16.6 % (13.2-15.2)
[2019-05-13 04:00] LABS: Albumin 3.7 g/dL (3.9-5)
[2019-05-13 06:46] VITALS: BP 108/76
== END 2019-05-13 06:48 | disposition home or self-care (01) ==
LOC: ED 17:44
DX: E11.65 Type 2 diabetes mellitus with hyperglycemia (principal); E03.9 Hypothyroidism, unspecified
CPT/HCPCS: 36415; 80053; 81001; 82962; 83735; 84100; 85027; 99284; J1642; J2405; J7030; J7040; J1815

== ENCOUNTER 2019-05-19 15:21 | Emergency (ER) | payer MEDICAID ==
--- NOTE | 2019-05-19 16:36 | Emergency Department Report ---
ED General Adult HPI - General Chief complaint: Hyperglycemia Stated complaint: HYPERGLYCEMIA Time Seen by Provider: 05/19/19 16:06 Source: patient, EMS Mode of arrival: Ambulatory Limitations: No Limitations - History of Present Illness Initial comments: 28-year-old female with history of insulin-dependent diabetes, Kalama's disease, celiac disease, hypotension presents to the ED with elevated blood sugar. Patient states for the last 3-4 days, her glucose has been reading high. Patient reports associated nausea and vomiting. Denies fever. Patient reports dizziness, generalized weakness, increased thirst. EMS reports Accu-Chek of 520. -: days(s) (4) Consistency: constant Improves with: none Worsens with: none Associated Symptoms: nausea/vomiting. denies: fever/chills - Related Data Previous Rx's Medication Instructions Recorded Last Taken Type Levothyroxine [Synthroid] 125 mcg PO DAILY #30 tablet 02/17/19 04/12/19 Rx Lispro Insulin [HumaLOG] 0 unit SUB-Q ACHS units 02/17/19 04/12/19 Rx Sertraline [Zoloft] 25 mg PO QDAY #30 tablet 02/17/19 04/12/19 Rx levETIRAcetam [Keppra TAB] 500 mg PO BID #60 tablet 02/17/19 04/12/19 Rx Fludrocortisone [Florinef] 0.1 mg PO QDAY #30 tablet 02/25/19 04/12/19 Rx Ondansetron [Zofran ODT TAB] 4 mg PO Q8HR PRN #20 tab.rapdis 02/28/19 04/12/19 Rx Acetaminophen [Acetaminophen TAB] 2 tab PO Q4H PRN #30 tablet 04/11/19 04/10/19 Rx HYDROcodone/APAP 5-325 [[place] 1 each PO Q4HR PRN #12 tablet 04/11/19 04/12/19 Rx 5-325 mg TAB] Hydrocortisone [Cortef TAB] 5 mg PO QPM #30 tablet 04/16/19 Unknown Rx Hydrocortisone [Cortef TAB] 10 mg PO QAM #30 tablet 04/16/19 Unknown Rx Insulin Glargine [Lantus VIAL] 10 units SUB-Q QAM #60 units 04/29/19 04/12/19 Rx Ondansetron [Zofran Odt] 4 mg PO Q8HR PRN #20 tab.rapdis 05/19/19 Unknown Rx Allergies Allergy/AdvReac Type Severity Reaction Status Date / Time Penicillins Allergy Angioedema Verified 12/31/18 16:01 vortioxetine Allergy Unknown Verified 12/31/18 16:01 [From Trintellix] ziprasidone [From Geodon] Allergy Angioedema Verified 12/31/18 16:01 vancomycin AdvReac Itching Verified 12/31/18 16:01 ED Review of Systems ROS: Stated complaint: HYPERTENSION Other details as noted in HPI Comment: All other systems reviewed and negative Constitutional: denies: chills, fever Gastrointestinal: nausea, vomiting. denies: abdominal pain ED Past Medical Hx - Past Medical History Hx Hypertension: No Hx Heart Attack/AMI: No Hx Congestive Heart Failure: No Hx Diabetes: Yes Hx Deep Vein Thrombosis: No Hx Pulmonary Embolism: No Hx GERD: No Hx Liver Disease: No Hx Renal Disease: No Hx Sickle Cell Disease: No Hx Arthritis: No Hx Headaches / Migraines: No Hx Seizures: Yes Hx Kidney Stones: No Hx Asthma: No Hx COPD: No Hx Tuberculosis: No Hx Dementia: No Hx HIV: No Additional medical history: hypotension, hypothyroidism, Kalama's disease, Depression, Celiac - Surgical History Hx Coronary Stent: No Hx Open Heart Surgery: No Hx Pacemaker: No Hx Internal Defibrillator: No Hx Cholecystectomy: Yes Hx Appendectomy: Yes Hx Breast Surgery: No Additional Surgical History: 4. port right chest wall - Social History Smoking Status: Never Smoker Substance Use Type: None - Medications Home Medications: Home Medications Medication Instructions Recorded Confirmed Last Taken Type Levothyroxine [Synthroid] 125 mcg PO DAILY #30 tablet 02/17/19 04/26/19 04/12/19 Rx Lispro Insulin [HumaLOG] 0 unit SUB-Q ACHS units 02/17/19 04/26/19 04/12/19 Rx Sertraline [Zoloft] 25 mg PO QDAY #30 tablet 02/17/19 04/26/19 04/12/19 Rx levETIRAcetam [Keppra TAB] 500 mg PO BID #60 tablet 02/17/19 04/26/19 04/12/19 Rx Fludrocortisone [Florinef] 0.1 mg PO QDAY #30 tablet 0804/26/19 04/12/19 Rx Ondansetron [Zofran ODT TAB] 4 mg PO Q8HR PRN #20 tab.rapdis 02/28/19 04/26/19 04/12/19 Rx Acetaminophen [Acetaminophen TAB] 2 tab PO Q4H PRN #30 tablet 04/11/19 04/26/19 04/10/19 Rx HYDROcodone/APAP 5-325 [[place] 1 each PO Q4HR PRN #12 tablet 04/11/19 04/26/19 04/12/19 Rx 5-325 mg TAB] Hydrocortisone [Cortef TAB] 5 mg PO QPM #30 tablet 04/16/19 04/26/19 Unknown Rx Hydrocortisone [Cortef TAB] 10 mg PO QAM #30 tablet 04/16/19 04/26/19 Unknown Rx Insulin Glargine [Lantus VIAL] 10 units SUB-Q QAM #60 units 04/29/19 04/26/19 04/12/19 Rx Ondansetron [Zofran Odt] 4 mg PO Q8HR PRN #20 tab.rapdis 05/19/19 Unknown Rx ED Physical Exam - General Limitations: No Limitations General appearance: alert, in no apparent distress - Head Head exam: Present: atraumatic, normocephalic - Eye Eye exam: Present: normal appearance - ENT ENT exam: Present: mucous membranes moist - Neck Neck exam: Present: normal inspection - Respiratory Respiratory exam: Present: normal lung sounds bilaterally. Absent: respiratory distress - Cardiovascular Cardiovascular Exam: Present: regular rate, normal rhythm - GI/Abdominal GI/Abdominal exam: Present: soft. Absent: distended, tenderness - Extremities Exam Extremities exam: Present: normal inspection - Neurological Exam Neurological exam: Present: alert, oriented X3 - Psychiatric Psychiatric exam: Present: normal affect, normal mood - Skin Skin exam: Present: warm, dry, intact, normal color ED Course Vital Signs 05/19/19 05/19/19 05/19/19 15:45 18:23 20:08 Temperature 98.1 F 97.8 F Pulse Rate 82 72 79 Respiratory 10 L 16 18 Rate Blood Pressure 110/61 Blood Pressure 96/69 107/73 [Right] O2 Sat by Pulse 100 98 99 Oximetry ED Medical Decision Making - Lab Data Result diagrams: 05/19/19 16:44 05/19/19 16:44 - Medical Decision Making 28-year-old female presents to ED with hyperglycemia, no signs of DKA. Initial glucose of 666. IV fluids and 10 units of insulin given. Patient currently feeling much better, glucose is improved to 331 currently. Will discharge patient at this time. Patient is stable. Outpatient follow-up advised. Return precautions given. - Differential Diagnosis hyperglycemia, DKA Critical care attestation.: If time is entered above; I have spent that time in minutes in the direct care of this critically ill patient, excluding procedure time. ED Disposition Clinical Impression: Hyperglycemia Disposition: DC-01 TO HOME OR SELFCARE Is pt being admited?: No Condition: Stable Instructions: Diabetic Hyperglycemia (ED) Prescriptions: Ondansetron [Zofran Odt] 4 mg PO Q8HR PRN #20 tab.rapdis PRN Reason: Vomiting Referrals: PRIMARY CARE, [Primary Care Provider] - 3-5 Days Forms: Work/School Release Form(ED) Time of Disposition: 19:07
[2019-05-19 16:53] LABS: Basophils # (Auto) 0.1 K/mm3 (0.0-0.1); Basophils % (Auto) 1.3 % (0.0-1.8); Eosinophils # (Auto) 0.2 K/mm3 (0.0-0.4); Eosinophils % (Auto) 3.4 % (0.0-4.3); Hematocrit 33.6 % (30.3-42.9); Hemoglobin 10.7 gm/dl (10.1-14.3); Lymphocytes # (Auto) 3.2 K/mm3 (1.2-5.4); Lymphocytes % (Auto) 52.1 % (13.4-35.0); Mean Corpuscular HGB Conc 32 % (30-34); Mean Corpuscular Volume 82 fl (79-97); Monocytes # (Auto) 0.2 K/mm3 (0.0-0.8); Platelet Count 166 K/mm3 (140-440)
[2019-05-19 16:57] LABS: Bilirubin,Urine NEG (Negative); Blood,Urine NEG (Negative); Color,Urine Straw (Yellow); Protein,Urine <15 mg/dL mg/dL (Negative); Urobilinogen,Urine < 2.0 mg/dL (<2.0)
[2019-05-19 17:14] LABS: Albumin 3.5 g/dL (3.9-5); Calcium 8.4 mg/dL (8.4-10.2)
[2019-05-19] MEDS ORDERED: SODIUM CHLORIDE 0.9% 1000 ML 1,000 ML IV ONE (17:17)
[2019-05-19] MEDS ORDERED: INSULIN REGULAR, HUMAN 100 UNITS/1 ML IV ONE (17:17)
[2019-05-19] MEDS ORDERED: ONDANSETRON 4 MG/2 ML INJ ONE (17:38)
[2019-05-19] MEDS ORDERED: INSULIN REGULAR, HUMAN 100 UNITS/1 ML ONE (19:26)
[2019-05-19 20:09] VITALS: BP 107/73
== END 2019-05-19 20:09 | disposition home or self-care (01) ==
LOC: ED 15:21
DX: E11.65 Type 2 diabetes mellitus with hyperglycemia (principal); E03.9 Hypothyroidism, unspecified; F32.9 Major depressive disorder, single episode, unspecified; Z90.49 Acquired absence of other specified parts of digestive tract; Z79.899 Other long term (current) drug therapy; Z88.0 Allergy status to penicillin; Z88.8 Allergy status to other drugs, medicaments and biological substances
CPT/HCPCS: 36415; 80053; 81001; 82010; 82805; 82962; 85025; 96361; 96374; 99284; J1642; J2405; J7030; J1815

== ENCOUNTER 2019-05-22 21:47 | Inpatient (IN) | payer MEDICAID ==
[2019-05-23] MEDS ORDERED: SODIUM CHLORIDE 0.9% 1000 ML 1,000 ML IV ONE ×3 (03:13→05:08)
[2019-05-23] MEDS ORDERED: ONDANSETRON 4 MG/2 ML INJ IV ONE (03:16)
[2019-05-23 03:41] LABS: Basophils # (Auto) 0.1 K/mm3 (0.0-0.1); Eosinophils # (Auto) 0.3 K/mm3 (0.0-0.4); Eosinophils % (Auto) 4.7 % (0.0-4.3); Hematocrit 34.5 % (30.3-42.9); Hemoglobin 11.2 gm/dl (10.1-14.3); Lymphocytes # (Auto) 3.2 K/mm3 (1.2-5.4); Lymphocytes % (Auto) 52.2 % (13.4-35.0); Mean Corpuscular HGB Conc 32 % (30-34); Mean Corpuscular Volume 80 fl (79-97); Monocytes # (Auto) 0.2 K/mm3 (0.0-0.8); Monocytes % (Auto) 3.4 % (0.0-7.3); Platelet Count 169 K/mm3 (140-440); Red Cell Distribution Width 17.1 % (13.2-15.2)
[2019-05-23] MEDS ORDERED: DEXTROSE 50% IN WATER (25GM) 50 ML SYRINGE IV PRN ×2 (03:46→05:17)
[2019-05-23 03:51] LABS: Calcium 8.6 mg/dL (8.4-10.2)
[2019-05-23] MEDS ORDERED: INSULIN REGULAR, HUMAN 100 UNITS in SODIUM CHLORIDE 0.9% 99 ML IV SCH (04:00)
[2019-05-23] MEDS ORDERED: INSULIN REGULAR, HUMAN 100 UNITS/1 ML IV ONE ×2 (04:05→05:29)
[2019-05-23] MEDS ORDERED: HYDROCORTISONE SOD SUCC 100 MG/2 ML VIAL IV ONE (05:07)
--- NOTE | 2019-05-23 05:14 | Emergency Department Report ---
ED General Adult HPI - General Chief complaint: Dizziness Stated complaint: DIZZINESS Time Seen by Provider: 05/23/19 03:01 Source: patient Mode of arrival: Ambulatory Limitations: No Limitations - History of Present Illness Initial comments: 28-year-old female with a past medical history of intermittent diabetes, Douglas's disease, and frequent ER visits presents to the hospital with complaints of feeling dizzy. Patient states her sugar is high and she's been having nausea, and vomiting 3 days. She states she has been able to tolerate liquids. She complains of a headache and lightheadedness. She denies abdominal pain, fever, dysuria, or diarrhea. She states she is compliant with her medications despite her frequent ER visits for hyperglycemia. - Related Data Previous Rx's Medication Instructions Recorded Last Taken Type Levothyroxine [Synthroid] 125 mcg PO DAILY #30 tablet 02/17/19 04/12/19 Rx Lispro Insulin [HumaLOG] 0 unit SUB-Q ACHS units 02/17/19 04/12/19 Rx Sertraline [Zoloft] 25 mg PO QDAY #30 tablet 02/17/19 04/12/19 Rx levETIRAcetam [Keppra TAB] 500 mg PO BID #60 tablet 02/17/19 04/12/19 Rx Fludrocortisone [Florinef] 0.1 mg PO QDAY #30 tablet 02/25/19 04/12/19 Rx Ondansetron [Zofran ODT TAB] 4 mg PO Q8HR PRN #20 tab.rapdis 02/28/19 04/12/19 Rx Acetaminophen [Acetaminophen TAB] 2 tab PO Q4H PRN #30 tablet 04/11/19 04/10/19 Rx HYDROcodone/APAP 5-325 [[place] 1 each PO Q4HR PRN #12 tablet 04/11/19 04/12/19 Rx 5-325 mg TAB] Hydrocortisone [Cortef TAB] 5 mg PO QPM #30 tablet 04/16/19 Unknown Rx Hydrocortisone [Cortef TAB] 10 mg PO QAM #30 tablet 04/16/19 Unknown Rx Insulin Glargine [Lantus VIAL] 10 units SUB-Q QAM #60 units 04/29/19 04/12/19 Rx Ondansetron [Zofran Odt] 4 mg PO Q8HR PRN #20 tab.rapdis 05/19/19 Unknown Rx Allergies Allergy/AdvReac Type Severity Reaction Status Date / Time Penicillins Allergy Angioedema Verified 12/31/18 16:01 vortioxetine Allergy Unknown Verified 12/31/18 16:01 [From Trintellix] ziprasidone [From Geodon] Allergy Angioedema Verified 12/31/18 16:01 vancomycin AdvReac Itching Verified 12/31/18 16:01 ED Review of Systems ROS: Stated complaint: DIZZINESS Other details as noted in HPI Comment: All other systems reviewed and negative ED Past Medical Hx - Past Medical History Previous Medical History?: Yes Hx Hypertension: No Hx Heart Attack/AMI: No Hx Congestive Heart Failure: No Hx Diabetes: Yes Hx Deep Vein Thrombosis: No Hx Pulmonary Embolism: No Hx GERD: No Hx Liver Disease: No Hx Renal Disease: No Hx Sickle Cell Disease: No Hx Arthritis: No Hx Headaches / Migraines: No Hx Seizures: Yes Hx Kidney Stones: No Hx Asthma: No Hx COPD: No Hx Tuberculosis: No Hx Dementia: No Hx HIV: No Additional medical history: hypotension, hypothyroidism, Douglas's disease, Depression, Celiac - Surgical History Past Surgical History?: Yes Hx Coronary Stent: No Hx Open Heart Surgery: No Hx Pacemaker: No Hx Internal Defibrillator: No Hx Cholecystectomy: Yes Hx Appendectomy: Yes Hx Breast Surgery: No Additional Surgical History: 4. port right chest wall - Social History Smoking Status: Never Smoker - Medications Home Medications: Home Medications Medication Instructions Recorded Confirmed Last Taken Type Levothyroxine [Synthroid] 125 mcg PO DAILY #30 tablet 02/17/19 04/26/19 04/12/19 Rx Lispro Insulin [HumaLOG] 0 unit SUB-Q ACHS units 02/17/19 04/26/19 04/12/19 Rx Sertraline [Zoloft] 25 mg PO QDAY #30 tablet 02/17/19 04/26/19 04/12/19 Rx levETIRAcetam [Keppra TAB] 500 mg PO BID #60 tablet 02/17/19 04/26/19 04/12/19 Rx Fludrocortisone [Florinef] 0.1 mg PO QDAY #30 tablet 02/25/19 04/26/19 04/12/19 Rx Ondansetron [Zofran ODT TAB] 4 mg PO Q8HR PRN #20 tab.rapdis 02/28/19 04/26/19 04/12/19 Rx Acetaminophen [Acetaminophen TAB] 2 tab PO Q4H PRN #30 tablet 04/11/19 04/26/19 04/10/19 Rx HYDROcodone/APAP 5-325 [[place] 1 each PO Q4HR PRN #12 tablet 04/11/19 04/26/19 04/12/19 Rx 5-325 mg TAB] Hydrocortisone [Cortef TAB] 5 mg PO QPM #30 tablet 04/16/19 04/26/19 Unknown Rx Hydrocortisone [Cortef TAB] 10 mg PO QAM #30 tablet 04/16/19 04/26/19 Unknown Rx Insulin Glargine [Lantus VIAL] 10 units SUB-Q QAM #60 units 04/29/19 04/26/19 04/12/19 Rx Ondansetron [Zofran Odt] 4 mg PO Q8HR PRN #20 tab.rapdis 05/19/19 Unknown Rx ED Physical Exam - General Limitations: No Limitations - Other Other exam information: General: No acute distress Head: Atraumatic Eyes: normal appearance ENT: Moist mucous membranes Neck: Normal appearance, no midline tenderness Chest: Clear to auscultation bilaterally CV: Regular rate and rhythm Abdomen: Soft, normal bowel sounds, nontender, nondistended, no rebound or guarding Back: Normal inspection Extremity: Normal inspection infection, full range of motion Neuro: Alert O x 3, no facial asymmetry, speech clear, no gross motor sensory deficit Psych: Appropriate behavior Skin: No rash ED Course Vital Signs 05/22/19 05/23/19 05/23/19 22:02 02:43 03:36 Temperature 97.7 F Pulse Rate 93 H 81 66 Respiratory 18 15 12 Rate Blood Pressure 91/73 Blood Pressure 71/45 84/58 [Right] O2 Sat by Pulse 100 99 100 Oximetry 05/23/19 05/23/19 03:46 04:59 Temperature Pulse Rate 73 Respiratory 12 11 L Rate Blood Pressure Blood Pressure 74/36 [Right] O2 Sat by Pulse 100 100 Oximetry ED Medical Decision Making - Lab Data Result diagrams: 05/23/19 03:24 05/23/19 03:24 Lab Results 05/22/19 05/23/19 05/23/19 Range/Units 22:12 03:24 03:24 WBC 6.2 (4.5-11.0) K/mm3 RBC 4.30 (3.65-5.03) M/mm3 Hgb 11.2 (10.1-14.3) gm/dl Hct 34.5 (30.3-42.9) % MCV 80 (79-97) fl MCH 26 L (28-32) pg MCHC 32 (30-34) % RDW 17.1 H (13.2-15.2) % Plt Count 169 (140-440) K/mm3 Lymph % (Auto) 52.2 H (13.4-35.0) % [place] % (Auto) 3.4 (0.0-7.3) % Eos % (Auto) 4.7 H (0.0-4.3) % Baso % (Auto) 1.0 (0.0-1.8) % Lymph # 3.2 (1.2-5.4) K/mm3 [place] # 0.2 (0.0-0.8) K/mm3 Eos # 0.3 (0.0-0.4) K/mm3 Baso # 0.1 (0.0-0.1) K/mm3 Seg Neutrophils % 38.7 L (40.0-70.0) % Seg Neutrophils # 2.4 (1.8-7.7) K/mm3 VBG pH (7.320-7.420) Sodium 128 L (137-145) mmol/L Potassium 4.1 (3.6-5.0) mmol/L Chloride 87.8 L (98-107) mmol/L Carbon Dioxide 26 (22-30) mmol/L Anion Gap 18 mmol/L BUN 8 (7-17) mg/dL Creatinine 2.2 H (0.7-1.2) mg/dL Estimated GFR 27 ml/min BUN/Creatinine Ratio 4 % Glucose 579 H* (65-100) mg/dL POC Glucose > 500 H (70-105) Calcium 8.6 (8.4-10.2) mg/dL HCG, Qual (Negative) 05/23/19 05/23/19 05/23/19 Range/Units 03:24 03:24 05:06 WBC (4.5-11.0) K/mm3 RBC (3.65-5.03) M/mm3 Hgb (10.1-14.3) gm/dl Hct (30.3-42.9) % MCV (79-97) fl MCH (28-32) pg MCHC (30-34) % RDW (13.2-15.2) % Plt Count (140-440) K/mm3 Lymph % (Auto) (13.4-35.0) % [place] % (Auto) (0.0-7.3) % Eos % (Auto) (0.0-4.3) % Baso % (Auto) (0.0-1.8) % Lymph # (1.2-5.4) K/mm3 [place] # (0.0-0.8) K/mm3 Eos # (0.0-0.4) K/mm3 Baso # (0.0-0.1) K/mm3 Seg Neutrophils % (40.0-70.0) % Seg Neutrophils # (1.8-7.7) K/mm3 VBG pH 7.328 (7.320-7.420) Sodium (137-145) mmol/L Potassium (3.6-5.0) mmol/L Chloride (98-107) mmol/L Carbon Dioxide (22-30) mmol/L Anion Gap mmol/L BUN (7-17) mg/dL Creatinine (0.7-1.2) mg/dL Estimated GFR ml/min BUN/Creatinine Ratio % Glucose (65-100) mg/dL POC Glucose 450 H (70-105) Calcium (8.4-10.2) mg/dL HCG, Qual Negative (Negative) - EKG Data -: EKG Interpreted by Sd EKG shows normal: sinus rhythm, ST-T waves (difuse t wave inv) Rate: normal (87) - EKG Data When compared to previous EKG there are: no significant change - Medical Decision Making patient has hyperglycemia without DKA. Her blood pressure is lower than her baseline blood pressure. Patient be treated with IV fluids, hydrocortisone IV, and regular insulin boluses. Cortisol test pending. Hospitalist informed for admission. Insulin drip was ordered but initiated since labs resulted negative for DKA. addition IVF ordered, pt has port if she needs pressors - Differential Diagnosis dka, infection, dehydration, medication noncompliance Critical Care Time: No Critical care attestation.: If time is entered above; I have spent that time in minutes in the direct care of this critically ill patient, excluding procedure time. ED Disposition Clinical Impression: Dante's disease, Insulin dependent diabetes mellitus, Hyperglycemia, Hypotension, Renal insufficiency Disposition: OP ADMIT IP TO THIS HOSP Is pt being admited?: Yes Condition: Stable Time of Disposition: 05:11 (Dr Gill/hosp)
[2019-05-23] MEDS ORDERED: ACETAMINOPHEN 325 MG TAB PO PRN (05:17)
[2019-05-23] MEDS ORDERED: diphenhydrAMINE 25 MG CAP PO PRN (05:23)
[2019-05-23] MEDS ORDERED: METOCLOPRAMIDE 10 MG/2 ML INJ IV PRN ×2 (05:23→05:39)
[2019-05-23 05:27] LABS: Alanine Aminotransferase 147 units/L (7-56); Albumin 3.6 g/dL (3.9-5)
[2019-05-23 05:33] LABS: Bilirubin,Direct < 0.2 mg/dL (0-0.2)
[2019-05-23] MEDS: INSULIN LISPRO 100 UNIT/ML SUB-Q SCH ×5 (05:38→22:11)
--- NOTE | 2019-05-23 05:45 | History and Physical Report ---
<EVELYN ALEXANDRE - Last Filed: 05/23/19 05:47> History of Present Illness Date of examination: 05/23/19 Date of admission: 05/23/2019 Chief complaint: Hyperglycemia, dizziness (hypotension) History of present illness: 28-year-old female with history of uncontrolled insulin-dependent diabetes, CKD2, seizure disorder, hypothyroidism, Huslia's disease who presents to [facility] with complaints of dizziness, hyperglycemia, nausea and vomiting. Note patient has been seen at this facility multiple times within the past year. On average pt presents to [facility] ED 3x per month. Today's presentation was prompted due to pt feeling "dizzy" and thought her blood pressure was low, and called EMS. Pt states that she has been feeling nauseous with occasional vomiting. She has had poor intake for the last 3 or 4 days. She admits to being compliant with insulin therapy. Past History Past Medical History: diabetes (poorly-controlled insulin-dependent), hypothyroidism, seizures, other (Huslia's disease, Hypotension) Past Surgical History: appendectomy, cholecystectomy, (x4), Other (right chest port) Social history: lives with family Family history: no significant family history Medications and Allergies Allergies Allergy/AdvReac Type Severity Reaction Status Date / Time Penicillins Allergy Angioedema Verified 12/31/18 16:01 vortioxetine Allergy Unknown Verified 12/31/18 16:01 [From Trintellix] ziprasidone [From Geodon] Allergy Angioedema Verified 12/31/18 16:01 vancomycin AdvReac Itching Verified 12/31/18 16:01 Home Medications Medication Instructions Recorded Confirmed Last Taken Type Levothyroxine [Synthroid] 125 mcg PO DAILY #30 tablet 02/17/19 04/26/19 04/12/19 Rx Lispro Insulin [HumaLOG] 0 unit SUB-Q ACHS units 02/17/19 04/26/19 04/12/19 Rx Sertraline [Zoloft] 25 mg PO QDAY #30 tablet 02/17/19 04/26/19 04/12/19 Rx levETIRAcetam [Keppra TAB] 500 mg PO BID #60 tablet 02/17/19 04/26/19 04/12/19 Rx Fludrocortisone [Florinef] 0.1 mg PO QDAY #30 tablet 02/25/19 04/26/19 04/12/19 Rx Ondansetron [Zofran ODT TAB] 4 mg PO Q8HR PRN #20 tab.rapdis 02/28/19 04/26/19 04/12/19 Rx Acetaminophen [Acetaminophen TAB] 2 tab PO Q4H PRN #30 tablet 04/11/19 04/26/19 04/10/19 Rx HYDROcodone/APAP 5-325 [[place] 1 each PO Q4HR PRN #12 tablet 04/11/19 04/26/19 04/12/19 Rx 5-325 mg TAB] Hydrocortisone [Cortef TAB] 5 mg PO QPM #30 tablet 04/16/19 04/26/19 Unknown Rx Hydrocortisone [Cortef TAB] 10 mg PO QAM #30 tablet 04/16/19 04/26/19 Unknown Rx Insulin Glargine [Lantus VIAL] 10 units SUB-Q QAM #60 units 04/29/19 04/26/19 04/12/19 Rx Ondansetron [Zofran Odt] 4 mg PO Q8HR PRN #20 tab.rapdis 05/19/19 Unknown Rx Active Meds: Active Medications Acetaminophen (Tylenol) 650 mg PO Q4H PRN PRN Reason: Pain MILD(1-3)/Fever >100.5/STEWARD Dextrose (D50w (25gm) Syringe) 50 ml IV Q30MIN PRN; Protocol PRN Reason: Hypoglycemia Enoxaparin Sodium (Enoxaparin) 40 mg SUB-Q QDAY [facility] Heparin Sodium (Porcine) (Heparin) 5,000 unit SUB-Q Q12HR [facility] Hydrocortisone Sodium Succinate (Solu-Cortef) 100 mg IV Q8HR [facility] Insulin Human Regular 100 (units/ Sodium Chloride) 100 mls @ 1 mls/hr IV TITR MARINO; Protocol Sodium Chloride (Nacl 0.9% 1000 Ml) 1,000 mls @ 999 mls/hr IV BOLUS ONE Stop: 05/23/19 06:07 Last Admin: 05/23/19 05:17 Dose: 999 mls/hr Documented by: Sodium Chloride (Nacl 0.9% 1000 Ml) 1,000 mls @ 999 mls/hr IV BOLUS ONE Stop: 05/23/19 06:08 Last Admin: 05/23/19 05:17 Dose: 999 mls/hr Documented by: Sodium Chloride (Nacl 0.9% 1000 Ml) 1,000 mls @ 100 mls/hr IV DIRECT MARINO Insulin Human Lispro (Humalog) 0 unit SUB-Q Q4HR [facility]; Protocol Levetiracetam (Keppra) 500 mg PO BID [facility] Levothyroxine Sodium (Synthroid) 125 mcg PO DAILY@0600 [facility] Metoclopramide HCl (Reglan) 10 mg IV Q6H PRN PRN Reason: Nausea And Vomiting Ondansetron HCl (Zofran) 4 mg IV Q6H PRN PRN Reason: Nausea And Vomiting Sertraline HCl (Zoloft) 25 mg PO QDAY [facility] Sodium Chloride (Sodium Chloride Flush Syringe 10 Ml) 10 ml IV BID [facility] Sodium Chloride (Sodium Chloride Flush Syringe 10 Ml) 10 ml IV PRN PRN PRN Reason: LINE FLUSH Review of Systems All systems: negative Constitutional: weakness Cardiovascular: lightheadedness, other (dizziness) Gastrointestinal: nausea, vomiting Endocrine: high blood sugars Exam - Physical Exam Narrative exam: Physical exam General appearance: Present: chronically Ill appearing, oriented 3, adult female - EENT Eyes: Present: PERRL, EOM intact ENT: hearing intact, normal dentition - Neck Neck: Present: supple, normal ROM - Respiratory Respiratory effort: Non-labored Respiratory: Clear throughout - Cardiovascular Heart rate: 73 (bpm) Rhythm: Sinus rhythm Heart Sounds: Present: S1 & S2 - Extremities Extremities: no ischemia, pulses intact, right chest port - Peripheral Assessment Peripheral Pulses: within normal limits - Abdominal General gastrointestinal: soft, non-tender, normal bowel sounds - Integumentary Integumentary: Present: warm, dry - Musculoskeletal Musculoskeletal: generalized weakness, able to move all extremities -Neurological Neurological: CN II-XII intact - Psychiatric Psychiatric: cooperative - Constitutional Vitals: Temp Pulse Resp BP Pulse Ox 97.7 F 73 11 L 74/36 100 05/22/19 22:02 05/23/19 04:59 05/23/19 04:59 05/23/19 04:59 05/23/19 04:59 Results - Labs CBC & Chem 7: 05/23/19 03:24 05/23/19 03:24 Labs: Laboratory Last Values WBC 6.2 K/mm3 (4.5-11.0) 05/23/19 03:24 RBC 4.30 M/mm3 (3.65-5.03) 05/23/19 03:24 Hgb 11.2 gm/dl (10.1-14.3) 05/23/19 03:24 Hct 34.5 % (30.3-42.9) 05/23/19 03:24 MCV 80 fl (79-97) 05/23/19 03:24 MCH 26 pg (28-32) L 05/23/19 03:24 MCHC 32 % (30-34) 05/23/19 03:24 RDW 17.1 % (13.2-15.2) H 05/23/19 03:24 Plt Count 169 K/mm3 (140-440) 05/23/19 03:24 Lymph % (Auto) 52.2 % (13.4-35.0) H 05/23/19 03:24 Elliott % (Auto) 3.4 % (0.0-7.3) 05/23/19 03:24 Eos % (Auto) 4.7 % (0.0-4.3) H 05/23/19 03:24 Baso % (Auto) 1.0 % (0.0-1.8) 05/23/19 03:24 Lymph # 3.2 K/mm3 (1.2-5.4) 05/23/19 03:24 Elliott # 0.2 K/mm3 (0.0-0.8) 05/23/19 03:24 Eos # 0.3 K/mm3 (0.0-0.4) 05/23/19 03:24 Baso # 0.1 K/mm3 (0.0-0.1) 05/23/19 03:24 Seg Neutrophils % 38.7 % (40.0-70.0) L 05/23/19 03:24 Seg Neutrophils # 2.4 K/mm3 (1.8-7.7) 05/23/19 03:24 VBG pH 7.328 (7.320-7.420) 05/23/19 03:24 Sodium 128 mmol/L (137-145) L 05/23/19 03:24 Potassium 4.1 mmol/L (3.6-5.0) 05/23/19 03:24 Chloride 87.8 mmol/L (98-107) L 05/23/19 03:24 Carbon Dioxide 26 mmol/L (22-30) 05/23/19 03:24 Anion Gap 18 mmol/L 05/23/19 03:24 BUN 8 mg/dL (7-17) 05/23/19 03:24 Creatinine 2.2 mg/dL (0.7-1.2) H 05/23/19 03:24 Estimated GFR 27 ml/min 05/23/19 03:24 BUN/Creatinine Ratio 4 % 05/23/19 03:24 Glucose 579 mg/dL (65-100) H* 05/23/19 03:24 POC Glucose 450 (70-105) H 05/23/19 05:06 Calcium 8.6 mg/dL (8.4-10.2) 05/23/19 03:24 Total Bilirubin 0.40 mg/dL (0.1-1.2) 05/23/19 03:24 Direct Bilirubin < 0.2 mg/dL (0-0.2) 05/23/19 03:24 Indirect Bilirubin 0.2 mg/dL 05/23/19 03:24 AST 390 units/L (5-40) H 05/23/19 03:24 ALT 147 units/L (7-56) H 05/23/19 03:24 Alkaline Phosphatase 137 units/L (35-129) H 05/23/19 03:24 Total Protein 6.2 g/dL (6.3-8.2) L 05/23/19 03:24 Albumin 3.6 g/dL (3.9-5) L 05/23/19 03:24 Albumin/Globulin Ratio 1.4 % 05/23/19 03:24 Lipase 19 units/L (13-60) 05/23/19 03:24 HCG, Qual Negative (Negative) 05/23/19 03:24 Assessment and Plan Assessment and plan: 28-year-old female with history of uncontrolled insulin-dependent diabetes, CKD2, seizure disorder, hypothyroidism, Huslia's disease who presents to [facility] with complaints of dizziness, hyperglycemia, nausea and vomiting. Insulin-dependent diabetes with hyperglycemia -Poorly controlled -Hgb A1c 11.9 (04/13/19) -BG on admission 579 -Initial Anion gap 18 -UA pending -Every 4 hours POC BG monitoring -Receving IVF -Received sub-q Regular insulin -SSI coverage prn -Continue to monitor labs Hypotension -BP on admission 74/36 -Receiving fluid blous; followed by maintenance fluids -On hydrocortisone -CXR pending -Blood Culture and UA pending -Levaquin x1 dose given empirically -Continue to monitor BP -Hold all antihypertensive meds BRANDEE -Hx CKD2 -Cr on admission 2.2 -Receiving IVF -Avoid nephrotoxin agents -Renal dose all meds DVT PPX -on Heparin Advance Directives: No VTE prophylaxis?: Chemical Plan of care discussed with patient/family: Yes <JAMES GODOY - Last Filed: 05/23/19 06:14> Medications and Allergies Active Meds: Active Medications Acetaminophen (Tylenol) 650 mg PO Q4H PRN PRN Reason: Pain MILD(1-3)/Fever >100.5/STEWARD Dextrose (D50w (25gm) Syringe) 50 ml IV Q30MIN PRN; Protocol PRN Reason: Hypoglycemia Heparin Sodium (Porcine) (Heparin) 5,000 unit SUB-Q Q12HR [facility] Hydrocortisone Sodium Succinate (Solu-Cortef) 100 mg IV Q8HR [facility] Sodium Chloride (Nacl 0.9% 1000 Ml) 1,000 mls @ 999 mls/hr IV BOLUS ONE Stop: 05/23/19 06:07 Last Admin: 05/23/19 05:17 Dose: 999 mls/hr Documented by: Sodium Chloride (Nacl 0.9% 1000 Ml) 1,000 mls @ 999 mls/hr IV BOLUS ONE Stop: 05/23/19 06:08 Last Admin: 05/23/19 05:17 Dose: 999 mls/hr Documented by: Sodium Chloride (Nacl 0.9% 1000 Ml) 1,000 mls @ 150 mls/hr IV DIRECT MARINO Levofloxacin/Dextrose (Levaquin 750mg/150ml) 750 mg in 150 mls @ 100 mls/hr IV ONCE ONE; Protocol Stop: 05/23/19 07:21 Insulin Human Lispro (Humalog) 0 unit SUB-Q Q4HR [facility]; Protocol Last Admin: 05/23/19 05:38 Dose: Not Given Documented by: Levetiracetam (Keppra) 500 mg PO BID [facility] Levothyroxine Sodium (Synthroid) 125 mcg PO DAILY@0600 [facility] Metoclopramide HCl (Reglan) 5 mg IV Q6H PRN PRN Reason: Nausea And Vomiting Ondansetron HCl (Zofran) 4 mg IV Q6H PRN PRN Reason: Nausea And Vomiting Sertraline HCl (Zoloft) 25 mg PO QDAY [facility] Sodium Chloride (Sodium Chloride Flush Syringe 10 Ml) 10 ml IV BID [facility] Sodium Chloride (Sodium Chloride Flush Syringe 10 Ml) 10 ml IV PRN PRN PRN Reason: LINE FLUSH Exam - Constitutional Vitals: Temp Pulse Resp BP Pulse Ox 97.7 F 73 11 L 74/36 100 05/22/19 22:02 05/23/19 04:59 05/23/19 04:59 05/23/19 04:59 05/23/19 04:59 Results - Labs CBC & Chem 7: 05/23/19 03:24 05/23/19 03:24 Labs: Laboratory Last Values WBC 6.2 K/mm3 (4.5-11.0) 05/23/19 03:24 RBC 4.30 M/mm3 (3.65-5.03) 05/23/19 03:24 Hgb 11.2 gm/dl (10.1-14.3) 05/23/19 03:24 Hct 34.5 % (30.3-42.9) 05/23/19 03:24 MCV 80 fl (79-97) 05/23/19 03:24 MCH 26 pg (28-32) L 05/23/19 03:24 MCHC 32 % (30-34) 05/23/19 03:24 RDW 17.1 % (13.2-15.2) H 05/23/19 03:24 Plt Count 169 K/mm3 (140-440) 05/23/19 03:24 Lymph % (Auto) 52.2 % (13.4-35.0) H 05/23/19 03:24 Elliott % (Auto) 3.4 % (0.0-7.3) 05/23/19 03:24 Eos % (Auto) 4.7 % (0.0-4.3) H 05/23/19 03:24 Baso % (Auto) 1.0 % (0.0-1.8) 05/23/19 03:24 Lymph # 3.2 K/mm3 (1.2-5.4) 05/23/19 03:24 Elliott # 0.2 K/mm3 (0.0-0.8) 05/23/19 03:24 Eos # 0.3 K/mm3 (0.0-0.4) 05/23/19 03:24 Baso # 0.1 K/mm3 (0.0-0.1) 05/23/19 03:24 Seg Neutrophils % 38.7 % (40.0-70.0) L 05/23/19 03:24 Seg Neutrophils # 2.4 K/mm3 (1.8-7.7) 05/23/19 03:24 VBG pH 7.328 (7.320-7.420) 05/23/19 03:24 Sodium 128 mmol/L (137-145) L 05/23/19 03:24 Potassium 4.1 mmol/L (3.6-5.0) 05/23/19 03:24 Chloride 87.8 mmol/L (98-107) L 05/23/19 03:24 Carbon Dioxide 26 mmol/L (22-30) 05/23/19 03:24 Anion Gap 18 mmol/L 05/23/19 03:24 BUN 8 mg/dL (7-17) 05/23/19 03:24 Creatinine 2.2 mg/dL (0.7-1.2) H 05/23/19 03:24 Estimated GFR 27 ml/min 05/23/19 03:24 BUN/Creatinine Ratio 4 % 05/23/19 03:24 Glucose 579 mg/dL (65-100) H* 05/23/19 03:24 POC Glucose 450 (70-105) H 05/23/19 05:06 Calcium 8.6 mg/dL (8.4-10.2) 05/23/19 03:24 Total Bilirubin 0.40 mg/dL (0.1-1.2) 05/23/19 03:24 Direct Bilirubin < 0.2 mg/dL (0-0.2) 05/23/19 03:24 Indirect Bilirubin 0.2 mg/dL 05/23/19 03:24 AST 390 units/L (5-40) H 05/23/19 03:24 ALT 147 units/L (7-56) H 05/23/19 03:24 Alkaline Phosphatase 137 units/L (35-129) H 05/23/19 03:24 Total Protein 6.2 g/dL (6.3-8.2) L 05/23/19 03:24 Albumin 3.6 g/dL (3.9-5) L 05/23/19 03:24 Albumin/Globulin Ratio 1.4 % 05/23/19 03:24 Lipase 19 units/L (13-60) 05/23/19 03:24 HCG, Qual Negative (Negative) 05/23/19 03:24 Urine Color Yellow (Yellow) 05/23/19 05:30 Urine Turbidity Slightly-cloudy (Clear) 05/23/19 05:30 Urine pH 5.0 (5.0-7.0) 05/23/19 05:30 Ur Specific Bee 1.022 (1.003-1.030) 05/23/19 05:30 Urine Protein <15 mg/dl mg/dL (Negative) 05/23/19 05:30 Urine Glucose (UA) >=500 mg/dL (Negative) 05/23/19 05:30 Urine Ketones Neg mg/dL (Negative) 05/23/19 05:30 Urine Blood Neg (Negative) 05/23/19 05:30 Urine Nitrite Neg (Negative) 05/23/19 05:30 Urine Bilirubin Neg (Negative) 05/23/19 05:30 Urine Urobilinogen < 2.0 mg/dL (<2.0) 05/23/19 05:30 Ur Leukocyte Esterase Lg (Negative) 05/23/19 05:30 Urine WBC (Auto) 133.0 /HPF (0.0-6.0) H 05/23/19 05:30 Urine RBC (Auto) 10.0 /HPF (0.0-6.0) 05/23/19 05:30 U Epithel Cells (Auto) 3.0 /HPF (0-13.0) 05/23/19 05:30 Urine Mucus Few /HPF 05/23/19 05:30 Assessment and Plan Assessment and plan: 28-year-old woman with insulin-dependent diabetes, CKD2, seizure disorder, hypothyroidism, Huslia's disease come to ER with complaints of nausea, vomiting and low blood pressure and feeling dizzy for 2 days. She states she is compliant with medications, no fever, chills. Agree with plan as stated above, in addition check chest x-ray and ultrasound, patient with elevated LFTs. Patitnt has UTI, continue levaquin
[2019-05-23 05:59] LABS: Bilirubin,Urine NEG (Negative); Blood,Urine NEG (Negative); Color,Urine Yellow (Yellow); Mucus,Urine FEW /HPF; Protein,Urine <15 mg/dL mg/dL (Negative); Urobilinogen,Urine < 2.0 mg/dL (<2.0)
[2019-05-23] MEDS ORDERED: SODIUM CHLORIDE 0.9% 1000 ML 1,000 ML IV SCH (06:00)
[2019-05-23 06:05] LABS: Amphetamine Screen,Urine PRESUMPTIVE NEGATIVE; Benzodiazepines Screen,Urine PRESUMPTIVE NEGATIVE; Cannabinoid Screen,Urine PRESUMPTIVE NEGATIVE; Cocaine Screen,Urine PRESUMPTIVE NEGATIVE; Methadone Screen,Urine PRESUMPTIVE NEGATIVE; Opiate Screen,Urine PRESUMPTIVE NEGATIVE
[2019-05-23] MEDS: LEVOTHYROXINE 125 MCG TAB PO SCH (06:10)
--- NOTE | 2019-05-23 07:12 | XRay Report ---
CHEST 1 VIEW, 05/23/2019 5:55 AM CLINICAL INFORMATION/INDICATION: Shortness of breath. Hypotension. COMPARISON: Chest radiograph, 04/08/2019 FINDINGS: SUPPORT DEVICES: None. HEART: Cardiac silhouette is within normal limits in size. LUNGS/PLEURA: There is no focal airspace disease or significant pleural effusion. ADDITIONAL FINDINGS: No additional acute findings. IMPRESSION: 1. No evidence of acute cardiopulmonary process. Signer Name: Katherin Elkins MD Signed: 05/23/2019 7:08 AM Workstation Name: [id number]
[2019-05-23] MEDS ORDERED: ENOXAPARIN 40 MG/0.4 ML INJ SUB-Q SCH (10:00)
[2019-05-23] MEDS ORDERED: HYDROCORTISONE 10 MG TAB PO SCH ×2 (10:00→18:00)
--- NOTE | 2019-05-23 10:20 | Ultrasound Report ---
ULTRASOUND ABDOMEN, COMPLETE INDICATION / CLINICAL INFORMATION: Abnormal liver function tests. COMPARISON: Right upper quadrant ultrasound 02/26/2019 FINDINGS: PANCREAS: Visualized portions of the pancreatic body are unremarkable. ABDOMINAL AORTA: No significant abnormality is identified. Proximal abdominal aorta could not be visu alized adequately. IVC: No significant abnormality.. LIVER: Liver size is normal. Hepatic echogenicity is coarsened and perhaps mildly increased. No focal liver lesion is identified. GALLBLADDER: Surgically absent. BILE DUCTS: No significant abnormality. Common bile duct measures 4 mm. KIDNEYS: Right: No significant abnormality Left: No significant abnormality. The renal pelves appear mildly prominent, as on the CT scan from 12/31/2018, likely representing extrarenal pelves, anatomic v ariant. SPLEEN: No significant abnormality. FREE FLUID: None. ADDITIONAL FINDINGS: None. IMPRESSION: 1. No significant change from previous ultrasound examinations. Liver parenchyma has a mildly coarsen ed and increased echogenicity. Signer Name: Jose Choi MD Signed: 05/23/2019 10:16 AM Workstation Name: [id number]
[2019-05-23] MEDS: levETIRAcetam 500 MG TAB PO SCH ×2 (10:56→22:06)
[2019-05-23] MEDS: HEPARIN 5,000 UNIT/1 ML VIAL SUB-Q SCH ×3 (10:57→22:12)
[2019-05-23] MEDS: ONDANSETRON 4 MG/2 ML INJ IV PRN ×2 (11:01→16:58)
[2019-05-23] MEDS: HYDROCORTISONE SOD SUCC 100 MG/2 ML VIAL IV SCH ×2 (15:43→22:06)
[2019-05-23] MEDS: SERTRALINE 25 MG TAB PO SCH (15:43)
--- NOTE | 2019-05-23 16:22 | Event Note ---
Date: 05/23/19 28-year-old with a history of insulin-dependent diabetes mellitus, chronic kidney disease stage II seizure disorder addresses disease presents with multiple episodes of nausea vomiting 3 weeks. Patient found to be in DKA with hypoglycemia with poor control patient states she got sick and this is what usually happens. Her A1c is in fact 11.9. Accu-Cheks was much better today initially a bit around 590 patient placed on insulin drip doing better can change back to 7030. Patient has adrenal insufficieny early using steroids to improve blood pressure for [place]'s disease. Patient has been ruled out for sepsis cultures are pending. And also acute kidney injury and 2.2 we'll continue to follow. Patient also has been started on Levaquin for UTI. Stable enough to be transferred to [facility].
[2019-05-23] MEDS ORDERED: SODIUM CHLORIDE 0.9% 500 ML 500 ML IV ONE (17:00)
[2019-05-24] MEDS: INSULIN LISPRO 100 UNIT/ML SUB-Q SCH ×4 (02:59→14:00)
[2019-05-24] MEDS: HYDROCORTISONE SOD SUCC 100 MG/2 ML VIAL IV SCH ×2 (05:47→14:14)
[2019-05-24] MEDS: LEVOTHYROXINE 125 MCG TAB PO SCH (05:47)
[2019-05-24] MEDS: levETIRAcetam 500 MG TAB PO SCH (09:50)
[2019-05-24] MEDS: HEPARIN 5,000 UNIT/1 ML VIAL SUB-Q SCH ×2 (09:51→10:00)
[2019-05-24] MEDS: SERTRALINE 25 MG TAB PO SCH (09:55)
[2019-05-24 10:42] LABS: Basophils % (Auto) 0.2 % (0.0-1.8); Hematocrit 29.4 % (30.3-42.9); Hemoglobin 9.6 gm/dl (10.1-14.3); Lymphocytes # (Auto) 1.6 K/mm3 (1.2-5.4); Lymphocytes % (Auto) 16.7 % (13.4-35.0); Mean Corpuscular HGB Conc 33 % (30-34); Mean Corpuscular Volume 80 fl (79-97); Monocytes % (Auto) 0.4 % (0.0-7.3); Platelet Count 177 K/mm3 (140-440); Red Blood Count 3.66 M/mm3 (3.65-5.03); Red Cell Distribution Width 17.3 % (13.2-15.2)
[2019-05-24 10:56] LABS: Calcium 7.6 mg/dL (8.4-10.2)
[2019-05-24 12:37] VITALS: BP 92/53
--- NOTE | 2019-05-24 13:25 | Discharge Summary ---
Providers - Providers Date of Admission: 05/23/19 05:17 Date of discharge: 05/24/19 Attending physician: ROEL TRUJILLO 05/23/19 05:20 Consult to Dietitian/Nutrition [CONS] Routine Physician Instructions: Reason For Exam: Reason for Consult: Diet education Primary care physician: [facility] MD ANA Hospitalization Condition: Good Hospital course: 28-year-old female presented with hyperglycemia and DKA. Admitted to ICU started on insulin drip. Electrolytes corrected. Underlying etiology which is infection was treated with empiric antibiotic coverage. This was no longer thought to be true. Patient was changed to her regular scheduled insulin 7030 twice a day. DKA resolved. Diabetes and control can be further titrated as outpatient. Disposition: DC-01 TO HOME OR SELFCARE - Discharge Diagnoses (1) Hyperglycemia Status: Acute (2) Acute kidney injury Status: Acute (3) Dante's disease Status: Acute (4) Uncontrolled type 2 diabetes mellitus with hyperosmolar nonketotic hyperglycemia Status: Acute Core Measure Documentation - Palliative Care Palliative Care/ Comfort Measures: Not Applicable - Core Measures Any of the following diagnoses?: none Exam - Constitutional Vitals: Temp Pulse Resp BP Pulse Ox 98.1 F 79 16 92/53 97 05/24/19 11:16 05/24/19 11:16 05/24/19 11:16 05/24/19 11:16 05/24/19 11:16 General appearance: Present: no acute distress, well-nourished - EENT Eyes: Present: PERRL ENT: hearing intact, clear oral mucosa - Neck Neck: Present: supple, normal ROM - Respiratory Respiratory effort: normal Respiratory: bilateral: CTA - Cardiovascular Heart Sounds: Present: S1 & S2. Absent: rub, click - Extremities Extremities: pulses symmetrical, No edema Peripheral Pulses: within normal limits - Abdominal General gastrointestinal: Present: soft, non-tender, non-distended, normal bowel sounds Female genitourinary: Present: normal - Integumentary Integumentary: Present: clear, warm, dry - Musculoskeletal Musculoskeletal: gait normal, strength equal bilaterally - Psychiatric Psychiatric: appropriate mood/affect, intact judgment & insight - Neurologic Neurologic: CNII-XII intact, moves all extremities Plan Activity: no restrictions Diet: diabetic Follow up with: ZAINA LONDONO MD [Primary Care Provider] - 7 Days Prescriptions: Hydrocortisone [Cortef TAB] 5 mg PO QPM #30 tablet Hydrocortisone [Cortef TAB] 10 mg PO QAM #30 tablet Fludrocortisone [Florinef] 0.1 mg PO QDAY #30 tablet Lispro Insulin [HumaLOG] 0 unit SUB-Q ACHS #7 units levETIRAcetam [Keppra TAB] 500 mg PO BID #60 tablet Insulin Glargine [Lantus VIAL] 10 units SUB-Q QAM #60 units HYDROcodone/APAP 5-325 [[place] 5-325 mg TAB] 1 each PO Q4HR PRN #12 tablet PRN Reason: Pain , Severe (7-10) Levothyroxine [Synthroid] 125 mcg PO DAILY #30 tablet Ondansetron [Zofran ODT TAB] 4 mg PO Q8HR PRN #20 tab.rapdis PRN Reason: Nausea Ondansetron [Zofran ODT TAB] 4 mg PO Q8HR PRN #20 tab.rapdis PRN Reason: Vomiting Sertraline [Zoloft] 25 mg PO QDAY #30 tablet
[2019-05-24] MEDS ORDERED: NEOMY 3.5 MG/BACIT 400 UNITS/POLY B 5000 UNITS/GM OINT PACKET TP ONE (16:00)
== END 2019-05-24 17:17 | disposition home or self-care (01) | DRG 638 ==
LOC: ED 21:47 → IMCU 05-23 05:17 → 3A 05-23 18:30
PROVIDERS: ADMIT Internal Medicine; ATTEND Internal Medicine
DX: E11.10 Type 2 diabetes mellitus with ketoacidosis without coma (principal); N17.9 Acute kidney failure, unspecified; E27.1 Primary adrenocortical insufficiency; N39.0 Urinary tract infection, site not specified; F32.9 Major depressive disorder, single episode, unspecified; G40.909 Epilepsy, unspecified, not intractable, without status epilepticus; N18.2 Chronic kidney disease, stage 2 (mild); I95.9 Hypotension, unspecified; Z79.4 Long term (current) use of insulin; Z79.899 Other long term (current) drug therapy; Z88.1 Allergy status to other antibiotic agents; Z88.0 Allergy status to penicillin; Z88.8 Allergy status to other drugs, medicaments and biological substances; Z90.49 Acquired absence of other specified parts of digestive tract
CPT/HCPCS: 36415; 71045; 76700; 80048; 80076; 80307; 81001; 82533; 82805; 82962; 83690; 84703; 85025; 87040; 93005; 93010; 96365; 96366; 96375; G0378; A6250; J1642; J1644; J1720; J1815; J1956; J2405; J7030; J7040

== ENCOUNTER 2019-05-28 23:36 | Emergency (ER) | payer MEDICAID ==
[2019-05-29] MEDS ORDERED: SODIUM CHLORIDE 0.9% 500 ML 500 ML IV ONE (00:01)
--- NOTE | 2019-05-29 00:02 | Emergency Department Report ---
ED General Adult HPI - General Chief complaint: Weakness Stated complaint: DIZZY/HYPOTENSION Time Seen by Provider: 05/28/19 23:47 Source: patient, EMS (verbal report received from emergency medical services. EMS documentation not available at time of chart dictation ), RN notes reviewed, old records reviewed Mode of arrival: Stretcher Limitations: No Limitations - History of Present Illness Initial comments: This is a 28-year-old female. I am familiar with this patient and have evaluated her multiple times in the past. Her past history includes mild renal insufficiency, transaminitis, Leon's disease, diabetes, hypothyroidism, brittle diabetes, diabetic ketoacidosis, occasional hyperglycemia, hypoglycemia. Today, the patient is brought to the hospital by emergency medical services with a complaint of painless weakness. As per verbal report from emergency medical services, patient walks with a steady gait in the field, had unremarkable vital signs, blood pressure 100/60, and Accu-Chek of 246. In the emergency room, the patient complains of weakness, and feeling as if she is "underwater." She denies physical pain, but indicates that she has a sensation of general malaise. This has been present for over 24 hours. This is constant, does not radiate anywhere, and as far she knows, does not have exacerbating or relieving factors. The patient denies headache, neck pain, chest pain, abdominal pain, new or different shortness of breath and irritative, obstructive urinary symptoms. She reports that her outpatient senior game advisor is Dr. Edwards, she endorses compliance with her outpatient medications, indicates that her outpatient indications have not been changed or adjusted, and she denies dietary indiscretions. Furthermore, she reports that family came in from out of state to visit her today, for , nd she was able to list off all the food that she ate. -: Gradual Improves with: none Worsens with: none - Related Data Previous Rx's Medication Instructions Recorded Last Taken Type Acetaminophen [Acetaminophen TAB] 2 tab PO Q4H PRN #30 tablet 04/11/19 04/10/19 Rx Acetaminophen [Acetaminophen TAB] 650 mg PO Q4H PRN tablet 05/24/19 Unknown Rx Fludrocortisone [Florinef] 0.1 mg PO QDAY #30 tablet 05/24/19 Unknown Rx HYDROcodone/APAP 5-325 [[place] 1 each PO Q4HR PRN #12 tablet 05/24/19 Unknown Rx 5-325 mg TAB] Hydrocortisone [Cortef TAB] 5 mg PO QPM #30 tablet 05/24/19 Unknown Rx Hydrocortisone [Cortef TAB] 10 mg PO QAM #30 tablet 05/24/19 Unknown Rx Insulin Glargine [Lantus VIAL] 10 units SUB-Q QAM #60 units 05/24/19 Unknown Rx Lispro Insulin [HumaLOG] 0 unit SUB-Q ACHS #7 units 05/24/19 Unknown Rx Ondansetron [Zofran ODT TAB] 4 mg PO Q8HR PRN #20 tab.rapdis 05/24/19 Unknown Rx Ondansetron [Zofran ODT TAB] 4 mg PO Q8HR PRN #20 tab.rapdis 05/24/19 Unknown Rx Sertraline [Zoloft] 25 mg PO QDAY #30 tablet 05/24/19 Unknown Rx levETIRAcetam [Keppra TAB] 500 mg PO BID #60 tablet 05/24/19 Unknown Rx Levothyroxine Sodium [Synthroid] 150 mcg PO QAM #7 tablet 05/29/19 Unknown Rx Allergies Allergy/AdvReac Type Severity Reaction Status Date / Time Penicillins Allergy Angioedema Verified 12/31/18 16:01 vortioxetine Allergy Unknown Verified 12/31/18 16:01 [From Trintellix] ziprasidone [From Geodon] Allergy Angioedema Verified 12/31/18 16:01 vancomycin AdvReac Itching Verified 12/31/18 16:01 ED Review of Systems ROS: Stated complaint: DIZZY/HYPOTENSION Other details as noted in HPI Constitutional: malaise, weakness Eyes: denies: eye discharge ENT: denies: congestion Respiratory: denies: wheezing Cardiovascular: denies: syncope Gastrointestinal: denies: nausea, vomiting Genitourinary: denies: dysuria Neurological: weakness ED Past Medical Hx - Past Medical History Hx Hypertension: No Hx Heart Attack/AMI: No Hx Congestive Heart Failure: No Hx Diabetes: Yes Hx Deep Vein Thrombosis: No Hx Pulmonary Embolism: No Hx GERD: No Hx Liver Disease: No Hx Renal Disease: No Hx Sickle Cell Disease: No Hx Arthritis: No Hx Headaches / Migraines: No Hx Seizures: Yes Hx Kidney Stones: No Hx Asthma: No Hx COPD: No Hx Tuberculosis: No Hx Dementia: No Hx HIV: No Additional medical history: hypotension, hypothyroidism, Leon's disease, Depression, Celiac - Surgical History Hx Coronary Stent: No Hx Open Heart Surgery: No Hx Pacemaker: No Hx Internal Defibrillator: No Hx Cholecystectomy: Yes Hx Appendectomy: Yes Hx Breast Surgery: No Additional Surgical History: 4. port right chest wall - Social History Smoking Status: Never Smoker - Medications Home Medications: Home Medications Medication Instructions Recorded Confirmed Last Taken Type Acetaminophen [Acetaminophen TAB] 2 tab PO Q4H PRN #30 tablet 04/11/19 05/24/19 04/10/19 Rx Acetaminophen [Acetaminophen TAB] 650 mg PO Q4H PRN tablet 05/24/19 Unknown Rx Fludrocortisone [Florinef] 0.1 mg PO QDAY #30 tablet 05/24/19 Unknown Rx HYDROcodone/APAP 5-325 [[place] 1 each PO Q4HR PRN #12 tablet 05/24/19 Unknown Rx 5-325 mg TAB] Hydrocortisone [Cortef TAB] 5 mg PO QPM #30 tablet 05/24/19 Unknown Rx Hydrocortisone [Cortef TAB] 10 mg PO QAM #30 tablet 05/24/19 Unknown Rx Insulin Glargine [Lantus VIAL] 10 units SUB-Q QAM #60 units 05/24/19 Unknown Rx Lispro Insulin [HumaLOG] 0 unit SUB-Q ACHS #7 units 05/24/19 Unknown Rx Ondansetron [Zofran ODT TAB] 4 mg PO Q8HR PRN #20 tab.rapdis 05/24/19 Unknown Rx Ondansetron [Zofran ODT TAB] 4 mg PO Q8HR PRN #20 tab.rapdis 05/24/19 Unknown Rx Sertraline [Zoloft] 25 mg PO QDAY #30 tablet 05/24/19 Unknown Rx levETIRAcetam [Keppra TAB] 500 mg PO BID #60 tablet 05/24/19 Unknown Rx Levothyroxine Sodium [Synthroid] 150 mcg PO QAM #7 tablet 05/29/19 Unknown Rx ED Physical Exam - General Limitations: No Limitations General appearance: alert, in no apparent distress - Head Head exam: Present: atraumatic, normocephalic - Eye Eye exam: Present: normal appearance, EOMI, other (visual acuity intact to finger counting, color perception, reading at a close distance). Absent: nysta gmus - ENT ENT exam: Present: normal exam, normal orophraynx, mucous membranes moist, normal external ear exam - Neck Neck exam: Present: normal inspection, full ROM. Absent: tenderness, meningismus - Respiratory Respiratory exam: Present: normal lung sounds bilaterally. Absent: respiratory distress - Cardiovascular Cardiovascular Exam: Present: regular rate, normal rhythm, normal heart sounds. Absent: bradycardia, tachycardia, irregular rhythm, systolic murmur, diastolic murmur, rubs, gallop - GI/Abdominal GI/Abdominal exam: Present: soft. Absent: distended, tenderness, guarding, rebound, rigid, pulsatile mass - Extremities Exam Extremities exam: Present: normal inspection, full ROM, other (2+ pulses noted in the bilateral upper, lower extremities. There is no long bone tenderness. Musculoskeletal compartments are soft. The pelvis is stable.). Absent: pedal edema, joint swelling, calf tenderness - Back Exam Back exam: Present: normal inspection. Absent: tenderness, CVA tenderness (R), CVA tenderness (L), paraspinal tenderness, vertebral tenderness - Neurological Exam Neurological exam: Present: alert, other (there is no facial droop. The tongue is midline. Extraocular movements are intact bilaterally. Patient speaking in full complete sentences. Shoulder shrug is intact bilaterally. Hearing is grossly intact bilaterally. Visual acuity intact to finger counting and color perception at a close distance. 5/5 strength 4 extremities. Sensation intact to light touch in 4 extremities.) - Psychiatric Psychiatric exam: Present: flat affect - Skin Skin exam: Present: warm, dry, intact, normal color. Absent: rash ED Course Vital Signs 05/29/19 05/29/19 05/29/19 00:04 00:51 02:55 Temperature 98.4 F Pulse Rate 79 75 74 Respiratory 17 12 20 Rate Blood Pressure 92/63 98/67 113/82 [Right] O2 Sat by Pulse 100 99 98 Oximetry - Reevaluation(s) Reevaluation #1: 05/29/19 00:58 Differential diagnosis, including not limited to: Dysthymia, diabetic ketoacidosis, thyroid derangement, urinary tract infection, dehydration Assessment and plan: 28-year-old female with a complaint of generalized malaise and weakness. Exam today is consistent with prior examinations. She is verbally reported to have been walking with a steady gait in the field. She denies physical pain. When I walk into the room to examine the patient she is watching movies on a laptop computer. Her physical exam is fairly benign and unremarkable. Patient unlikely to have an acute emergent condition, however, she is a complex endocrine patient, therefore, we will obtain basic metabolic panel to assess for DKA, metabolic crisis, urinalysis, and TSH. EKG reviewed and appreciated. Vital signs today appear to be at baseline. No active vomiting at this time. Reevaluation #2: 05/29/19 02:43 Patient walking with a steady gait, and is in no acute distress. 05/29/19 03:36 Laboratory studies reviewed and appreciated. TSH slightly elevated when compared to prior levels. Patient hemodynamically stable, walking around the steady gait, and in no acute distress. Urinalysis not consistent with urinary tract infection. Patient does not meet criteria for hospitalization at this time. She may continue her current outpatient medications, we will recommend that she follow up with her outpatient senior game advisor to have her medications titrated and adjusted. ED Medical Decision Making - Lab Data Result diagrams: 05/29/19 00:46 05/29/19 00:45 Vital Signs 05/29/19 05/29/19 00:04 00:51 Temperature 98.4 F Pulse Rate 79 75 Respiratory 17 12 Rate Blood Pressure 92/63 98/67 [Right] O2 Sat by Pulse 100 99 Oximetry Lab Results 05/29/19 05/29/19 Range/Units 00:46 00:57 WBC 7.7 (4.5-11.0) K/mm3 RBC 3.70 (3.65-5.03) M/mm3 Hgb 9.7 L (10.1-14.3) gm/dl Hct 29.5 L (30.3-42.9) % MCV 80 (79-97) fl MCH 26 L (28-32) pg MCHC 33 (30-34) % RDW 17.7 H (13.2-15.2) % Plt Count 181 (140-440) K/mm3 POC Glucose 378 H (70-105) - EKG Data -: EKG Interpreted by Al EKG shows normal: sinus rhythm Rate: normal - EKG Data When compared to previous EKG there are: no significant change 05/29/19 00:59 The EKG today shows a sinus rhythm, 75 bpm, low voltage, QTC 488 ms, nonspecific T-wave abnormality, the EKG is abnormal, it appears to be unchanged from prior from 05/22/2019. Critical care attestation.: If time is entered above; I have spent that time in minutes in the direct care of this critically ill patient, excluding procedure time. ED Disposition Clinical Impression: Hypothyroid, Hyperglycemia Disposition: - TO HOME OR SELFCARE Is pt being admited?: No Does the pt Need Aspirin: No Condition: Stable Additional Instructions: Laboratory studies suggested elevated blood sugar level, not requiring admission to the hospital, and elevated thyroid-stimulating hormone, suggestive of possible worsening hypothyroidism. Increase Synthroid to 150 g each morning. Recommend following up with her primary care doctor or senior game advisor for presumed hypothyroidism within the next 7-10 days. Otherwise, continue current outpatient medications. Return to the emergency room right away with new, worsened or different symptoms, or symptoms not present on the initial emergency room evaluation. Referrals: PRIMARY CAREMD [Primary Care Provider] - 3-5 Days
[2019-05-29 00:57] LABS: Hematocrit 29.5 % (30.3-42.9); Hemoglobin 9.7 gm/dl (10.1-14.3); Mean Corpuscular HGB Conc 33 % (30-34); Mean Corpuscular Volume 80 fl (79-97); Platelet Count 181 K/mm3 (140-440); Red Cell Distribution Width 17.7 % (13.2-15.2)
[2019-05-29 01:08] LABS: INR 0.92 (0.87-1.13)
[2019-05-29 01:16] LABS: BUN/Creatinine Ratio 12; Blood Urea Nitrogen 15 mg/dL (7-17); Calcium 8.2 mg/dL (8.4-10.2); Hemolysis Index 13
[2019-05-29] MEDS ORDERED: INSULIN REGULAR, HUMAN 100 UNITS/1 ML IV ONE (02:11)
[2019-05-29] MEDS ORDERED: MAGNESIUM OXIDE 400 MG TAB PO ONE (02:30)
[2019-05-29 02:56] VITALS: BP 113/82
[2019-05-29 03:17] LABS: Bilirubin,Urine NEG (Negative); Blood,Urine NEG (Negative); Color,Urine Yellow (Yellow); Protein,Urine <15 mg/dL mg/dL (Negative); Urobilinogen,Urine < 2.0 mg/dL (<2.0)
== END 2019-05-29 04:08 | disposition home or self-care (01) ==
LOC: ED 23:36
DX: E11.65 Type 2 diabetes mellitus with hyperglycemia (principal); E03.9 Hypothyroidism, unspecified; Z90.49 Acquired absence of other specified parts of digestive tract; Z98.890 Other specified postprocedural states; Z88.1 Allergy status to other antibiotic agents; Z88.2 Allergy status to sulfonamides; Z88.0 Allergy status to penicillin
CPT/HCPCS: 36415; 80048; 81001; 82550; 82962; 83735; 84443; 84702; 85027; 85610; 87086; 93005; 93010; 96374; 96375; 99284; J1642; J7040; 80320; G0480; J1815

== ENCOUNTER 2019-06-05 18:22 | Inpatient (IN) | payer MEDICAID ==
[2019-06-05] MEDS ORDERED: SODIUM CHLORIDE 0.9% 1000 ML 1,000 ML IV ONE ×2 (18:57→20:15)
[2019-06-05] MEDS ORDERED: SODIUM CHLORIDE 0.9% 1000 ML 1,000 ML ONE (18:58)
[2019-06-05 19:40] LABS: Basophils # (Auto) 0.1 K/mm3 (0.0-0.1); Basophils % (Auto) 1.2 % (0.0-1.8); Eosinophils # (Auto) 0.5 K/mm3 (0.0-0.4); Eosinophils % (Auto) 5.7 % (0.0-4.3); Hematocrit 31.7 % (30.3-42.9); Hemoglobin 10.6 gm/dl (10.1-14.3); Lymphocytes % (Auto) 49.5 % (13.4-35.0); Mean Corpuscular HGB Conc 34 % (30-34); Mean Corpuscular Volume 80 fl (79-97); Monocytes # (Auto) 0.4 K/mm3 (0.0-0.8); Monocytes % (Auto) 5.1 % (0.0-7.3); Platelet Count 207 K/mm3 (140-440); Red Blood Count 3.98 M/mm3 (3.65-5.03); Red Cell Distribution Width 18.3 % (13.2-15.2)
[2019-06-05 20:05] LABS: Albumin 3.4 g/dL (3.9-5); Calcium 8.6 mg/dL (8.4-10.2)
[2019-06-05] MEDS ORDERED: ONDANSETRON 4 MG/2 ML INJ IV ONE (20:15)
[2019-06-05] MEDS ORDERED: ONDANSETRON 4 MG/2 ML INJ ONE (20:18)
--- NOTE | 2019-06-05 20:35 | Emergency Department Report ---
ED Dizziness HPI - General Chief Complaint: Dizziness Stated Complaint: LIGHT HEADED Time Seen by Provider: 06/05/19 18:49 Source: patient Mode of arrival: Stretcher Limitations: No Limitations - History of Present Illness Initial Comments: 28-year-old female with a past medical history diabetes, hypothyroidism, Carver's disease, hypotension, depression, seizures, and frequent hospital ER visits presents to the hospital complaining of generalized weakness and dizziness. Patient felt so weak and lightheaded and she couldn't sit up prior to arrival. Weakness have been going on for last several days and worsened today. Patient states he's been eating and drinking appropriately. She complains of some intermittent nausea and vomiting without diarrhea, fever, cough, dysuria, melena, hematochezia, or hematemesis. She is compliant with all her medications. She saw her political analyst earlier this week and her insulin doses were increased. Her thyroid medication was not adjusted. - Related Data Previous Rx's Medication Instructions Recorded Last Taken Type Acetaminophen [Acetaminophen TAB] 2 tab PO Q4H PRN #30 tablet 04/11/19 04/10/19 Rx Acetaminophen [Acetaminophen TAB] 650 mg PO Q4H PRN tablet 05/24/19 Unknown Rx Fludrocortisone [Florinef] 0.1 mg PO QDAY #30 tablet 05/24/19 Unknown Rx HYDROcodone/APAP 5-325 [[place] 1 each PO Q4HR PRN #12 tablet 05/24/19 Unknown Rx 5-325 mg TAB] Hydrocortisone [Cortef TAB] 5 mg PO QPM #30 tablet 05/24/19 Unknown Rx Hydrocortisone [Cortef TAB] 10 mg PO QAM #30 tablet 05/24/19 Unknown Rx Insulin Glargine [Lantus VIAL] 10 units SUB-Q QAM #60 units 05/24/19 Unknown Rx Lispro Insulin [HumaLOG] 0 unit SUB-Q ACHS #7 units 05/24/19 Unknown Rx Ondansetron [Zofran ODT TAB] 4 mg PO Q8HR PRN #20 tab.rapdis 05/24/19 Unknown Rx Ondansetron [Zofran ODT TAB] 4 mg PO Q8HR PRN #20 tab.rapdis 05/24/19 Unknown Rx Sertraline [Zoloft] 25 mg PO QDAY #30 tablet 05/24/19 Unknown Rx levETIRAcetam [Keppra TAB] 500 mg PO BID #60 tablet 05/24/19 Unknown Rx Levothyroxine Sodium [Synthroid] 150 mcg PO QAM #7 tablet 05/29/19 Unknown Rx Allergies Allergy/AdvReac Type Severity Reaction Status Date / Time Penicillins Allergy Angioedema Verified 12/31/18 16:01 vortioxetine Allergy Unknown Verified 12/31/18 16:01 [From Trintellix] ziprasidone [From Geodon] Allergy Angioedema Verified 12/31/18 16:01 vancomycin AdvReac Itching Verified 12/31/18 16:01 ED Review of Systems ROS: Stated complaint: LIGHT HEADED Other details as noted in HPI Comment: All other systems reviewed and negative ED Past Medical Hx - Past Medical History Hx Hypertension: No Hx Heart Attack/AMI: No Hx Congestive Heart Failure: No Hx Diabetes: Yes Hx Deep Vein Thrombosis: No Hx Pulmonary Embolism: No Hx GERD: No Hx Liver Disease: No Hx Renal Disease: No Hx Sickle Cell Disease: No Hx Arthritis: No Hx Headaches / Migraines: No Hx Seizures: Yes Hx Kidney Stones: No Hx Asthma: No Hx COPD: No Hx Tuberculosis: No Hx Dementia: No Hx HIV: No Additional medical history: hypotension, hypothyroidism, Dante's disease, Depression, Celiac - Surgical History Hx Coronary Stent: No Hx Open Heart Surgery: No Hx Pacemaker: No Hx Internal Defibrillator: No Hx Cholecystectomy: Yes Hx Appendectomy: Yes Hx Breast Surgery: No Additional Surgical History: 4. port right chest wall - Social History Smoking Status: Never Smoker Substance Use Type: None - Medications Home Medications: Home Medications Medication Instructions Recorded Confirmed Last Taken Type Acetaminophen [Acetaminophen TAB] 2 tab PO Q4H PRN #30 tablet 04/11/19 05/24/19 04/10/19 Rx Acetaminophen [Acetaminophen TAB] 650 mg PO Q4H PRN tablet 05/24/19 Unknown Rx Fludrocortisone [Florinef] 0.1 mg PO QDAY #30 tablet 05/24/19 Unknown Rx HYDROcodone/APAP 5-325 [[place] 1 each PO Q4HR PRN #12 tablet 05/24/19 Unknown Rx 5-325 mg TAB] Hydrocortisone [Cortef TAB] 5 mg PO QPM #30 tablet 05/24/19 Unknown Rx Hydrocortisone [Cortef TAB] 10 mg PO QAM #30 tablet 05/24/19 Unknown Rx Insulin Glargine [Lantus VIAL] 10 units SUB-Q QAM #60 units 05/24/19 Unknown Rx Lispro Insulin [HumaLOG] 0 unit SUB-Q ACHS #7 units 05/24/19 Unknown Rx Ondansetron [Zofran ODT TAB] 4 mg PO Q8HR PRN #20 tab.rapdis 05/24/19 Unknown Rx Ondansetron [Zofran ODT TAB] 4 mg PO Q8HR PRN #20 tab.rapdis 05/24/19 Unknown Rx Sertraline [Zoloft] 25 mg PO QDAY #30 tablet 05/24/19 Unknown Rx levETIRAcetam [Keppra TAB] 500 mg PO BID #60 tablet 05/24/19 Unknown Rx Levothyroxine Sodium [Synthroid] 150 mcg PO QAM #7 tablet 05/29/19 Unknown Rx ED Physical Exam - General Limitations: No Limitations - Other Other exam information: General: No acute distress Head: Atraumatic Eyes: normal appearance ENT: Moist mucous membranes Neck: Normal appearance, no midline tenderness Chest: Clear to auscultation bilaterally CV: Regular rate and rhythm Abdomen: Soft, normal bowel sounds, nontender, nondistended, no rebound or guarding Back: Normal inspection Extremity: Normal inspection infection, full range of motion Neuro: Alert O x 3, no facial asymmetry, speech clear, no gross motor sensory deficit Psych: Appropriate behavior Skin: No rash ED Course Vital Signs 06/05/19 06/05/19 06/05/19 18:25 19:34 20:14 Temperature 97.6 F Pulse Rate 76 70 77 Respiratory 16 14 12 Rate Blood Pressure 86/56 Blood Pressure 84/55 84/55 [Left] O2 Sat by Pulse 97 97 100 Oximetry ED Medical Decision Making - Lab Data Result diagrams: 06/05/19 19:30 06/05/19 19:30 Lab Results 06/05/19 06/05/19 06/05/19 Range/Units 19:01 19:30 19:30 WBC 8.1 (4.5-11.0) K/mm3 RBC 3.98 (3.65-5.03) M/mm3 Hgb 10.6 (10.1-14.3) gm/dl Hct 31.7 (30.3-42.9) % MCV 80 (79-97) fl MCH 27 L (28-32) pg MCHC 34 (30-34) % RDW 18.3 H (13.2-15.2) % Plt Count 207 (140-440) K/mm3 Lymph % (Auto) 49.5 H (13.4-35.0) % [place] % (Auto) 5.1 (0.0-7.3) % Eos % (Auto) 5.7 H (0.0-4.3) % Baso % (Auto) 1.2 (0.0-1.8) % Lymph # 4.0 (1.2-5.4) K/mm3 [place] # 0.4 (0.0-0.8) K/mm3 Eos # 0.5 H (0.0-0.4) K/mm3 Baso # 0.1 (0.0-0.1) K/mm3 Seg Neutrophils % 38.5 L (40.0-70.0) % Seg Neutrophils # 3.1 (1.8-7.7) K/mm3 Sodium 138 (137-145) mmol/L Potassium 3.6 (3.6-5.0) mmol/L Chloride 97.5 L (98-107) mmol/L Carbon Dioxide 23 (22-30) mmol/L Anion Gap 21 mmol/L BUN 18 H (7-17) mg/dL Creatinine 1.5 H (0.7-1.2) mg/dL Estimated GFR 41 ml/min BUN/Creatinine Ratio 12 % Glucose 162 H (65-100) mg/dL POC Glucose 73 (70-105) Calcium 8.6 (8.4-10.2) mg/dL Magnesium 1.40 L (1.7-2.3) mg/dL Total Bilirubin 0.30 (0.1-1.2) mg/dL AST 296 H (5-40) units/L ALT 143 H (7-56) units/L Alkaline Phosphatase 150 H (35-129) units/L Total Protein 6.0 L (6.3-8.2) g/dL Albumin 3.4 L (3.9-5) g/dL Albumin/Globulin Ratio 1.3 % TSH (0.270-4.200) mlU/mL Free T4 (0.76-1.46) ng/dL HCG, Qual (Negative) Urine Color (Yellow) Urine Turbidity (Clear) Urine pH (5.0-7.0) Ur Specific [place] (1.003-1.030) Urine Protein (Negative) mg/dL Urine Glucose (UA) (Negative) mg/dL Urine Ketones (Negative) mg/dL Urine Blood (Negative) Urine Nitrite (Negative) Urine Bilirubin (Negative) Urine Urobilinogen (<2.0) mg/dL Ur Leukocyte Esterase (Negative) Urine WBC (Auto) (0.0-6.0) /HPF Urine RBC (Auto) (0.0-6.0) /HPF Hyaline Casts /LPF Urine Mucus /HPF 06/05/19 06/05/19 06/05/19 Range/Units 19:30 19:30 20:25 WBC (4.5-11.0) K/mm3 RBC (3.65-5.03) M/mm3 Hgb (10.1-14.3) gm/dl Hct (30.3-42.9) % MCV (79-97) fl MCH (28-32) pg MCHC (30-34) % RDW (13.2-15.2) % Plt Count (140-440) K/mm3 Lymph % (Auto) (13.4-35.0) % [place] % (Auto) (0.0-7.3) % Eos % (Auto) (0.0-4.3) % Baso % (Auto) (0.0-1.8) % Lymph # (1.2-5.4) K/mm3 [place] # (0.0-0.8) K/mm3 Eos # (0.0-0.4) K/mm3 Baso # (0.0-0.1) K/mm3 Seg Neutrophils % (40.0-70.0) % Seg Neutrophils # (1.8-7.7) K/mm3 Sodium (137-145) mmol/L Potassium (3.6-5.0) mmol/L Chloride (98-107) mmol/L Carbon Dioxide (22-30) mmol/L Anion Gap mmol/L BUN (7-17) mg/dL Creatinine (0.7-1.2) mg/dL Estimated GFR ml/min BUN/Creatinine Ratio % Glucose (65-100) mg/dL POC Glucose (70-105) Calcium (8.4-10.2) mg/dL Magnesium (1.7-2.3) mg/dL Total Bilirubin (0.1-1.2) mg/dL AST (5-40) units/L ALT (7-56) units/L Alkaline Phosphatase (35-129) units/L Total Protein (6.3-8.2) g/dL Albumin (3.9-5) g/dL Albumin/Globulin Ratio % TSH 20.400 H (0.270-4.200) mlU/mL Free T4 0.23 L (0.76-1.46) ng/dL HCG, Qual Negative (Negative) Urine Color Yellow (Yellow) Urine Turbidity Clear (Clear) Urine pH 5.0 (5.0-7.0) Ur Specific [place] 1.022 (1.003-1.030) Urine Protein <15 mg/dl (Negative) mg/dL Urine Glucose (UA) >=500 (Negative) mg/dL Urine Ketones Tr (Negative) mg/dL Urine Blood Neg (Negative) Urine Nitrite Neg (Negative) Urine Bilirubin Neg (Negative) Urine Urobilinogen < 2.0 (<2.0) mg/dL Ur Leukocyte Esterase Neg (Negative) Urine WBC (Auto) 2.0 (0.0-6.0) /HPF Urine RBC (Auto) 1.0 (0.0-6.0) /HPF Hyaline Casts 1 /LPF Urine Mucus Few /HPF - EKG Data -: EKG Interpreted by Ma EKG shows normal: sinus rhythm, ST-T waves (lat and inferior T-wave inversions) Rate: normal - EKG Data When compared to previous EKG there are: no significant change - Medical Decision Making Patient presents to the ED with hypotension. She is compliant with all her medications. No significant improvement within normal saline bolus. Dose of hydrocortisone provided given a history of adrenal insufficiency. Labs show persistent hypothyroidism. IV magnesium ordered for mild hypomagnesemia. Patient does not endorse any infectious symptoms and has has had a history of recurrent hypotension and dehydration in the past. Patient will be readmitted to the hospitalist. Glucose was in the 70s upon arrival patient given orange juice to drink and a snack. Patient has chronic LFTs once again noted. Previous negative hepatitis panel recent ultrasound on record. - Differential Diagnosis sepsis, adrenal insuf,hypothr, med noncompliance Critical Care Time: No Critical care attestation.: If time is entered above; I have spent that time in minutes in the direct care of this critically ill patient, excluding procedure time. ED Disposition Clinical Impression: Elevated LFTs, Carver's disease, Hypotension, Nausea & vomiting, Type 1 diabetes mellitus with diabetic chronic kidney disease Disposition: OP ADMIT IP TO THIS HOSP Is pt being admited?: Yes Condition: Stable Time of Disposition: 21:08
[2019-06-05 20:41] LABS: Bilirubin,Urine NEG (Negative); Blood,Urine NEG (Negative); Color,Urine Yellow (Yellow); Hyaline Casts,Urine 1 /LPF; Mucus,Urine FEW /HPF; Protein,Urine <15 mg/dL mg/dL (Negative); Urobilinogen,Urine < 2.0 mg/dL (<2.0)
[2019-06-05 20:48] LABS: Free T4 (Free Thyroxine) 0.23 ng/dL (0.76-1.46)
[2019-06-05] MEDS ORDERED: HYDROCORTISONE SOD SUCC 100 MG/2 ML VIAL IV ONE (21:02)
[2019-06-05] MEDS ORDERED: MAGNESIUM SULFATE 1 GM in SODIUM CHLORIDE 0.9% 50 ML IV ONE (21:04)
[2019-06-05] MEDS ORDERED: DEXTROSE 50% IN WATER (25GM) 50 ML SYRINGE IV PRN (22:29)
--- NOTE | 2019-06-05 22:33 | History and Physical Report ---
History of Present Illness Date of examination: 06/05/19 History of present illness: 28-year-old man with a history of seizure, Dante's disease, depression, hypothyroidism, diabetes, chronic kidney disease, celiac disease comes to emergency room because she felt dizzy, generalized weakness and nausea. She needed her blood pressure was low however she did not monitor this at home. Patient stated that she is been compliant with her medications, denies fever chills. Patient states she has been eating and drinking normally. in the emergency room she was given hydrocortisone, 500 cc bolus IV fluid, blood pressure improved to the 90s systolically. Patient is being evaluated for further evaluation of hypotension Review Of Systems: Constitutional: no weight loss, fever, chills Ears, eyes, nose, mouth and throat: no nasal congestion, no nasal discharge, no sinus pressure, blurry vision, diplopia Neck: No neck pain or rigidity. Cardiovascular: No palpitations, chest pain Respiratory: No shortness of breath, cough Gastrointestinal: No hematochezia, abdominal pain Genitourinary : no dysuria, frequency , hematuria Musculoskeletal: no muscle ache , joint pain Integumentary: no rash, no pruritis Neurological: no parathesias, focal weakness Endocrine: no cold or heat intolerance, no polyuria or polydipsia Hematologic/Lymphatic: no easy bruising, no easy bleeding, no gland swelling Allergic/Immunologic: no urticaria, no angioedema. PAST MEDICAL HISTORY:seizure, Dante's disease, depression, hypothyroidism, diabetes, chronic kidney disease, celiac disease PAST SURGICAL HISTORY: Appendicectomy, cholecystectomy, , port placement FAMILY HISTORY:hypertension, diabetes SOCIAL HISTORY: Denies tobacco, drugs, alcohol Medications and Allergies Allergies Allergy/AdvReac Type Severity Reaction Status Date / Time Penicillins Allergy Angioedema Verified 12/31/18 16:01 vortioxetine Allergy Unknown Verified 12/31/18 16:01 [From Trintellix] ziprasidone [From Geodon] Allergy Angioedema Verified 12/31/18 16:01 vancomycin AdvReac Itching Verified 12/31/18 16:01 Home Medications Medication Instructions Recorded Confirmed Last Taken Type Acetaminophen [Acetaminophen TAB] 2 tab PO Q4H PRN #30 tablet 04/11/19 05/24/19 04/10/19 Rx Acetaminophen [Acetaminophen TAB] 650 mg PO Q4H PRN tablet 05/24/19 Unknown Rx Fludrocortisone [Florinef] 0.1 mg PO QDAY #30 tablet 05/24/19 Unknown Rx HYDROcodone/APAP 5-325 [[place] 1 each PO Q4HR PRN #12 tablet 05/24/19 Unknown Rx 5-325 mg TAB] Hydrocortisone [Cortef TAB] 5 mg PO QPM #30 tablet 05/24/19 Unknown Rx Hydrocortisone [Cortef TAB] 10 mg PO QAM #30 tablet 05/24/19 Unknown Rx Insulin Glargine [Lantus VIAL] 10 units SUB-Q QAM #60 units 05/24/19 Unknown Rx Lispro Insulin [HumaLOG] 0 unit SUB-Q ACHS #7 units 05/24/19 Unknown Rx Ondansetron [Zofran ODT TAB] 4 mg PO Q8HR PRN #20 tab.rapdis 05/24/19 Unknown Rx Ondansetron [Zofran ODT TAB] 4 mg PO Q8HR PRN #20 tab.rapdis 05/24/19 Unknown Rx Sertraline [Zoloft] 25 mg PO QDAY #30 tablet 05/24/19 Unknown Rx levETIRAcetam [Keppra TAB] 500 mg PO BID #60 tablet 05/24/19 Unknown Rx Levothyroxine Sodium [Synthroid] 150 mcg PO QAM #7 tablet 05/29/19 Unknown Rx Active Meds: Active Medications Dextrose (D50w (25gm) Syringe) 50 ml IV Q30MIN PRN; Protocol PRN Reason: Hypoglycemia Enoxaparin Sodium (Enoxaparin) 30 mg SUB-Q QDAY MARINO Levofloxacin/Dextrose (Levaquin 750mg/150ml) 750 mg in 150 mls @ 100 mls/hr IV ONCE ONE; Protocol Stop: 06/07/19 00:00 Exam - Physical Exam Narrative exam: General Apperance: The patient sitting in bed no acute distress HEENT: Normocephalic, atraumatic. Pupils equally round and reactive to light, extraocular movement intact, and no sclericterus or JVD or thyromegaly or nodule. Neck supple, no carotid bruit, mucous membranes dry, no exudate or erythema Heart: S1-S2, regular is rhythm Lungs: Clear to auscultation bilaterally, breathing comfortable Abdomen: Positive bowel sounds, soft, nontender, nondistended, no organomegaly Extremities: No edema cyanosis clubbing Skin: no rash, nodule, warm and dry Neuro:CN 2 -12 intact, motor/sensory intact, speech is fluent - Constitutional Vitals: Temp Pulse Resp BP Pulse Ox 97.6 F 77 12 84/55 100 06/05/19 18:25 06/05/19 20:14 06/05/19 20:14 06/05/19 20:14 06/05/19 20:14 Results - Labs CBC & Chem 7: 06/05/19 19:30 06/05/19 19:30 Labs: Abnormal lab results 06/05/19 06/05/19 06/05/19 Range/Units 19:30 19:30 19:30 MCH 27 L (28-32) pg RDW 18.3 H (13.2-15.2) % Lymph % (Auto) 49.5 H (13.4-35.0) % Eos % (Auto) 5.7 H (0.0-4.3) % Eos # 0.5 H (0.0-0.4) K/mm3 Seg Neutrophils % 38.5 L (40.0-70.0) % Chloride 97.5 L (98-107) mmol/L BUN 18 H (7-17) mg/dL Creatinine 1.5 H (0.7-1.2) mg/dL Glucose 162 H (65-100) mg/dL Magnesium 1.40 L (1.7-2.3) mg/dL AST 296 H (5-40) units/L ALT 143 H (7-56) units/L Alkaline Phosphatase 150 H (35-129) units/L Total Protein 6.0 L (6.3-8.2) g/dL Albumin 3.4 L (3.9-5) g/dL TSH 20.400 H (0.270-4.200) mlU/mL Free T4 0.23 L (0.76-1.46) ng/dL Assessment and Plan Assessment Dante's disease exacerbation Start IV fluids, IV hydrocortisone, empiric antibiotic Check x-ray, continue fludrocortisone hypothyroidism Continue Synthroid diabetes, brittle Check fingersticks, hold sliding scale for now chronic kidney disease Continue to monitor Chronic elevated LFTs Continue to monitor, ultrasound was done on 05/23, unrevealing depression Continue zoloft, stable Seizure on keppra DVT prophylaxis
[2019-06-05] MEDS ORDERED: ONDANSETRON 4 MG/2 ML INJ IV PRN (22:45)
[2019-06-05] MEDS ORDERED: ACETAMINOPHEN 325 MG TAB PO PRN (22:45)
--- NOTE | 2019-06-05 23:30 | XRay Report ---
CHEST 1 VIEW 06/05/2019 11:10 PM INDICATION / CLINICAL INFORMATION: Hypotension. COMPARISON: One view of the chest from 05/23/2019. FINDINGS: SUPPORT DEVICES: A right subclavian vein [place] catheter is unchanged in position. HEART / MEDIASTINUM: No significant abnormality. LUNGS / PLEURA: No significant pulmonary or pleural abnormality. No pneumothorax. ADDITIONAL FINDINGS: No significant additional findings. IMPRESSION: 1. No acute abnormality of the chest. Signer Name: Red Peterson MD Signed: 06/05/2019 11:25 PM Workstation Name: [id number]
[2019-06-06] MEDS: FLUDROCORTISONE 0.1 MG TAB PO SCH ×2 (00:14→10:25)
[2019-06-06] MEDS: LEVOTHYROXINE 150 MCG TAB PO SCH (05:20)
[2019-06-06] MEDS: SODIUM CHLORIDE 0.9% 1000 ML 1,000 ML IV SCH (05:20)
[2019-06-06 06:58] LABS: Basophils % (Auto) 0.9 % (0.0-1.8); Eosinophils % (Auto) 0.3 % (0.0-4.3); Hematocrit 30.6 % (30.3-42.9); Hemoglobin 9.9 gm/dl (10.1-14.3); Lymphocytes # (Auto) 1.3 K/mm3 (1.2-5.4); Lymphocytes % (Auto) 28.8 % (13.4-35.0); Mean Corpuscular HGB Conc 32 % (30-34); Mean Corpuscular Volume 81 fl (79-97); Monocytes # (Auto) 0.1 K/mm3 (0.0-0.8); Monocytes % (Auto) 1.1 % (0.0-7.3); Platelet Count 185 K/mm3 (140-440); Red Blood Count 3.79 M/mm3 (3.65-5.03); Red Cell Distribution Width 18.2 % (13.2-15.2)
[2019-06-06 07:19] LABS: Blood Urea Nitrogen 15 mg/dL (7-17)
[2019-06-06 07:20] LABS: Alanine Aminotransferase 119 units/L (7-56); Albumin 3.2 g/dL (3.9-5); BUN/Creatinine Ratio 13; Calcium 7.5 mg/dL (8.4-10.2); Hemolysis Index 0
[2019-06-06 07:29] LABS: Bilirubin,Direct < 0.2 mg/dL (0-0.2)
[2019-06-06] MEDS ORDERED: ENOXAPARIN 30 MG/0.3 ML INJ SUB-Q SCH (10:00)
[2019-06-06] MEDS ORDERED: HYDROCORTISONE 10 MG TAB PO SCH ×2 (10:00→18:00)
[2019-06-06] MEDS ORDERED: LEVOTHYROXINE 125 MCG TAB PO SCH (10:00)
[2019-06-06] MEDS ORDERED: FLUDROCORTISONE 0.1 MG TAB PO SCH (10:00)
[2019-06-06] MEDS: SERTRALINE 25 MG TAB PO SCH (10:25)
[2019-06-06] MEDS: ENOXAPARIN 40 MG/0.4 ML INJ SUB-Q SCH ×2 (10:25→10:29)
[2019-06-06] MEDS: levETIRAcetam 500 MG TAB PO SCH ×2 (10:25→22:41)
[2019-06-06] MEDS: INSULIN LISPRO 100 UNIT/ML SUB-Q SCH ×3 (12:29→22:41)
--- NOTE | 2019-06-06 16:48 | Progress Note ---
Assessment and Plan Assessment and plan: [place]'s disease exacerbation Start IV fluids, IV hydrocortisone, empiric antibiotic Check x-ray, continue fludrocortisone hypothyroidism Continue Synthroid diabetes, brittle Check fingersticks, hold sliding scale for now chronic kidney disease Continue to monitor Chronic elevated LFTs Continue to monitor, ultrasound was done on 05/23, unrevealing depression Continue zoloft, stable Seizure on keppra DVT prophylaxis History Interval history: Gen weakness Dizziness Hospitalist Physical - Physical exam Narrative exam: Gen: Not in acute distress, lying in bed HEENT: Normocephalic, atraumatic Neck: supple, no JVD Heart: S1 and S2 reg, no murmurs, rubs or gallop Lungs: Clear to auscultation bilaterally, Abd: soft, NT, non distended, normal bowel sounds Ext: No edema, no clubbing, no cyanosis Neuro: Awake, alert, oriented X 3, moves all ext - Constitutional Vitals: Temp Pulse Resp BP Pulse Ox 97.7 F 63 18 92/64 96 06/06/19 08:29 06/06/19 10:00 06/06/19 08:29 06/06/19 08:29 06/06/19 08:36 Results - Labs CBC & Chem 7: 06/06/19 05:30 06/07/19 05:30 Labs: Laboratory Last Values WBC 4.5 K/mm3 (4.5-11.0) 06/06/19 05:30 RBC 3.79 M/mm3 (3.65-5.03) 06/06/19 05:30 Hgb 9.9 gm/dl (10.1-14.3) L 06/06/19 05:30 Hct 30.6 % (30.3-42.9) 06/06/19 05:30 MCV 81 fl (79-97) 06/06/19 05:30 MCH 26 pg (28-32) L 06/06/19 05:30 MCHC 32 % (30-34) 06/06/19 05:30 RDW 18.2 % (13.2-15.2) H 06/06/19 05:30 Plt Count 185 K/mm3 (140-440) 06/06/19 05:30 Lymph % (Auto) 28.8 % (13.4-35.0) 06/06/19 05:30 [place] % (Auto) 1.1 % (0.0-7.3) 06/06/19 05:30 Eos % (Auto) 0.3 % (0.0-4.3) 06/06/19 05:30 Baso % (Auto) 0.9 % (0.0-1.8) 06/06/19 05:30 Lymph # 1.3 K/mm3 (1.2-5.4) 06/06/19 05:30 [place] # 0.1 K/mm3 (0.0-0.8) 06/06/19 05:30 Eos # 0.0 K/mm3 (0.0-0.4) 06/06/19 05:30 Baso # 0.0 K/mm3 (0.0-0.1) 06/06/19 05:30 Seg Neutrophils % 68.9 % (40.0-70.0) 06/06/19 05:30 Seg Neutrophils # 3.1 K/mm3 (1.8-7.7) 06/06/19 05:30 Sodium 135 mmol/L (137-145) L 06/06/19 05:30 Potassium 4.8 mmol/L (3.6-5.0) D 06/06/19 05:30 Chloride 99.2 mmol/L (98-107) 06/06/19 05:30 Carbon Dioxide 19 mmol/L (22-30) L 06/06/19 05:30 Anion Gap 22 mmol/L 06/06/19 05:30 BUN 15 mg/dL (7-17) 06/06/19 05:30 Creatinine 1.2 mg/dL (0.7-1.2) 06/06/19 05:30 Estimated GFR 53 ml/min 06/06/19 05:30 BUN/Creatinine Ratio 13 % 06/06/19 05:30 Glucose 258 mg/dL (65-100) H 06/06/19 05:30 POC Glucose > 500 (70-105) H 06/06/19 12:34 Calcium 7.5 mg/dL (8.4-10.2) L 06/06/19 05:30 Phosphorus 3.10 mg/dL (2.5-4.5) 06/06/19 05:30 Magnesium 1.80 mg/dL (1.7-2.3) 06/06/19 05:30 Total Bilirubin 0.20 mg/dL (0.1-1.2) 06/06/19 05:30 Direct Bilirubin < 0.2 mg/dL (0-0.2) 06/06/19 05:30 Indirect Bilirubin 0.0 mg/dL 06/06/19 05:30 AST 215 units/L (5-40) H 06/06/19 05:30 ALT 119 units/L (7-56) H 06/06/19 05:30 Alkaline Phosphatase 134 units/L (35-129) H 06/06/19 05:30 Total Protein 5.5 g/dL (6.3-8.2) L 06/06/19 05:30 Albumin 3.2 g/dL (3.9-5) L 06/06/19 05:30 Albumin/Globulin Ratio 1.4 % 06/06/19 05:30 TSH 20.400 mlU/mL (0.270-4.200) H 06/05/19 19:30 Free T4 0.23 ng/dL (0.76-1.46) L 06/05/19 19:30 HCG, Qual Negative (Negative) 06/05/19 19:30 Urine Color Yellow (Yellow) 06/05/19 20:25 Urine Turbidity Clear (Clear) 06/05/19 20:25 Urine pH 5.0 (5.0-7.0) 06/05/19 20:25 Ur Specific [place] 1.022 (1.003-1.030) 06/05/19 20:25 Urine Protein <15 mg/dl mg/dL (Negative) 06/05/19 20:25 Urine Glucose (UA) >=500 mg/dL (Negative) 06/05/19 20:25 Urine Ketones Tr mg/dL (Negative) 06/05/19 20:25 Urine Blood Neg (Negative) 06/05/19 20:25 Urine Nitrite Neg (Negative) 06/05/19 20:25 Urine Bilirubin Neg (Negative) 06/05/19 20:25 Urine Urobilinogen < 2.0 mg/dL (<2.0) 06/05/19 20:25 Ur Leukocyte Esterase Neg (Negative) 06/05/19 20:25 Urine WBC (Auto) 2.0 /HPF (0.0-6.0) 06/05/19 20:25 Urine RBC (Auto) 1.0 /HPF (0.0-6.0) 06/05/19 20:25 Hyaline Casts 1 /LPF 06/05/19 20:25 Urine Mucus Few /HPF 06/05/19 20:25 Active Medications - Current Medications Current Medications: Generic Name Dose Route Start Last Admin Trade Name Freq PRN Reason Stop Dose Admin Acetaminophen 650 mg 06/05/19 22:45 Tylenol PO Q4H PRN Pain MILD(1-3)/Fever >100.5/STEWARD Dextrose 50 ml 06/05/19 22:29 D50w (25gm) Syringe IV Q30MIN PRN Hypoglycemia Protocol Enoxaparin Sodium 40 mg 06/06/19 10:00 06/06/19 10:29 Enoxaparin SUB-Q Not Given QDAY@1000 MARINO Fludrocortisone Acetate 0.1 mg 06/05/19 23:12 06/06/19 10:25 Florinef PO 0.1 mg QDAY MARINO Administration Hydrocortisone Acetate 5 mg 06/06/19 18:00 Cortef PO QPM MARINO Hydrocortisone Acetate 10 mg 06/06/19 10:00 06/06/19 16:17 Cortef PO Not Given QAM MARINO Levofloxacin/Dextrose 750 mg in 150 mls @ 100 mls/hr 06/06/19 22:31 Levaquin 750mg/150ml IV 06/07/19 00:00 ONCE ONE Protocol Sodium Chloride 1,000 mls @ 150 mls/hr 06/05/19 22:45 06/06/19 05:20 Nacl 0.9% 1000 Ml IV 150 mls/hr DIRECT MARINO Administration Insulin Human Lispro 0 unit 06/06/19 11:30 06/06/19 12:29 Humalog SUB-Q 8 unit ACHS MARINO Administration Protocol Levetiracetam 500 mg 06/06/19 10:00 06/06/19 10:25 Keppra PO 500 mg BID MARINO Administration Levothyroxine Sodium 150 mcg 06/06/19 06:00 06/06/19 05:20 Synthroid PO 150 mcg QAM@0600 MARINO Administration Ondansetron HCl 4 mg 06/05/19 22:45 Zofran IV Q8H PRN Nausea And Vomiting Sertraline HCl 25 mg 06/06/19 10:00 12/07/19 10:25 Zoloft PO 25 mg QDAY MARINO Administration Sodium Chloride 10 ml 06/06/19 10:00 06/06/19 10:25 Sodium Chloride Flush Syringe 10 Ml IV 10 ml BID MARINO Administration Sodium Chloride 10 ml 06/05/19 22:45 Sodium Chloride Flush Syringe 10 Ml IV PRN PRN LINE FLUSH
[2019-06-07 04:52] VITALS: BP 115/85
[2019-06-07] MEDS: SODIUM CHLORIDE 0.9% 1000 ML 1,000 ML IV SCH (05:09)
[2019-06-07] MEDS: LEVOTHYROXINE 150 MCG TAB PO SCH (05:09)
--- NOTE | 2019-06-07 10:16 | Discharge Summary ---
Providers - Providers Date of Admission: 06/05/19 22:28 Date of discharge: 06/07/19 Attending physician: ARIC BENTLEY Primary care physician: JAMES MILAN MD Hospitalization Condition: Fair Hospital course: 28-year-old man with a history of seizure, Geary's disease, depression, hypothyroidism, diabetes, chronic kidney disease, celiac disease comes to emergency room because she felt dizzy, generalized weakness and nausea. Patient stated that she is been compliant with her medications, denies fever chills. Patient states she has been eating and drinking normally. in the emergency room she was given hydrocortisone, 500 cc bolus IV fluid, SBP improved to the 90s. She was then admitted. Geary's disease exacerbation. Treated with IV fluids, IV hydrocortisone, empiric antibiotic hypothyroidism Continue Synthroid diabetes mellitus. Check fingersticks, Acute on CKD due to vasomotor nephropathy Chronic elevated LFTs Continue to monitor, ultrasound was done on 05/23, unrevealing depression Continue zoloft, stable Seizure on keppra Total time spent on discharge, 34 mins Disposition: TO HOME OR SELFCARE - Discharge Diagnoses (1) BRANDEE (acute kidney injury) Status: Acute (2) Vasomotor nephropathy Status: Acute (3) Geary's disease Status: Acute (4) Adrenal insufficiency Status: Acute (5) Diabetes mellitus with hyperglycemia Status: Acute (6) Dizziness Status: Acute (7) Elevated LFTs Status: Acute (8) Hypotension Status: Acute Qualifiers: Hypotension type: other hypotension type Qualified Code(s): I95.89 - Other hypotension (9) [id number] kidney injury Status: Acute Core Measure Documentation - Palliative Care Palliative Care/ Comfort Measures: Not Applicable - Core Measures Any of the following diagnoses?: none Exam - Constitutional Vitals: Temp Pulse Resp BP Pulse Ox 97.4 F L 71 20 115/85 99 06/07/19 04:40 06/07/19 04:40 06/07/19 04:40 06/07/19 04:40 06/07/19 04:40 Plan Activity: advance as tolerated Plan of Treatment: 1.Follow up with PCP in 1 week 2.Follow up with Nephrologist in 1 week Follow up with: PRIMARY CAREMD [Primary Care Provider] - 3-5 Days
[2019-06-07] MEDS: ENOXAPARIN 40 MG/0.4 ML INJ SUB-Q SCH (10:35)
[2019-06-07] MEDS: INSULIN LISPRO 100 UNIT/ML SUB-Q SCH (10:36)
[2019-06-07] MEDS: SERTRALINE 25 MG TAB PO SCH (10:36)
[2019-06-07] MEDS: levETIRAcetam 500 MG TAB PO SCH (10:36)
== END 2019-06-07 13:28 | disposition home or self-care (01) | DRG 643 ==
LOC: ED 18:22 → 4A 22:28
PROVIDERS: ADMIT Internal Medicine; ATTEND Internal Medicine
DX: E27.1 Primary adrenocortical insufficiency (principal); N17.0 Acute kidney failure with tubular necrosis; I95.9 Hypotension, unspecified; E10.22 Type 1 diabetes mellitus with diabetic chronic kidney disease; N18.9 Chronic kidney disease, unspecified; R94.5 Abnormal results of liver function studies; F32.9 Major depressive disorder, single episode, unspecified; R56.9 Unspecified convulsions; E03.9 Hypothyroidism, unspecified; Z82.49 Family history of ischemic heart disease and other diseases of the circulatory system; Z83.3 Family history of diabetes mellitus; Z88.0 Allergy status to penicillin; Z88.8 Allergy status to other drugs, medicaments and biological substances; Z79.899 Other long term (current) drug therapy; Z79.4 Long term (current) use of insulin; Z90.49 Acquired absence of other specified parts of digestive tract
CPT/HCPCS: 36415; 71045; 80048; 80053; 80076; 81001; 82947; 82962; 83735; 84100; 84439; 84443; 84703; 85025; 87116; 93005; 93010; 96361; 96365; 96375; G0378; J1650; J1720; J1815; J1956; J2405; J3475; J7030

== ENCOUNTER 2019-06-14 11:17 | Inpatient (IN) | payer MEDICAID ==
--- NOTE | 2019-06-14 11:36 | Event Note ---
ED Screening Note Date of service: 06/14/19 Time: 11:33 ED Screening Note: This is a 28 y.o. F. that presents to the ER with hyperglycemia and vomiting for 1 day. This initial assessment/diagnostic orders/clinical plan/treatment(s) is/are subject to change based on patients health status, clinical progression and re- assessment by fellow clinical providers in the ED. Further treatment and workup at subsequent clinical providers discretion. Patient/guardian urged not to elope from the ED as their condition may be serious if not clinically assessed and managed. Initial orders include: Labs
[2019-06-14 12:48] LABS: Bilirubin,Urine NEG (Negative); Blood,Urine NEG (Negative); Color,Urine Yellow (Yellow); Mucus,Urine FEW /HPF; Protein,Urine <15 mg/dL mg/dL (Negative); Urobilinogen,Urine < 2.0 mg/dL (<2.0)
[2019-06-14 13:57] LABS: Basophils # (Auto) 0.1 K/mm3 (0.0-0.1); Basophils % (Auto) 1.1 % (0.0-1.8); Eosinophils # (Auto) 0.1 K/mm3 (0.0-0.4); Eosinophils % (Auto) 1.8 % (0.0-4.3); Hematocrit 29.8 % (30.3-42.9); Hemoglobin 9.7 gm/dl (10.1-14.3); Lymphocytes # (Auto) 2.5 K/mm3 (1.2-5.4); Lymphocytes % (Auto) 44.6 % (13.4-35.0); Mean Corpuscular HGB Conc 32 % (30-34); Mean Corpuscular Volume 82 fl (79-97); Monocytes # (Auto) 0.2 K/mm3 (0.0-0.8); Monocytes % (Auto) 4.1 % (0.0-7.3); Platelet Count 131 K/mm3 (140-440); Red Blood Count 3.63 M/mm3 (3.65-5.03)
[2019-06-14 13:59] LABS: Red Cell Distribution Width 20.6 % (13.2-15.2)
[2019-06-14] MEDS ORDERED: SODIUM CHLORIDE 0.9% 1000 ML 1,000 ML ONE (14:02)
--- NOTE | 2019-06-14 14:23 | Emergency Department Report ---
ED General Adult HPI - General Chief complaint: Hyperglycemia Stated complaint: HIGH SUGAR/VOMITING Time Seen by Provider: 06/14/19 11:32 Source: patient, EMS Mode of arrival: Ambulatory Limitations: No Limitations - History of Present Illness Initial comments: Patient is a 28-year-old female that presents emergency room with complaints of nausea and vomiting that started this morning. Patient states she has not held anything down since last night. Patient states she woke up with her symptoms this morning. Patient states her blood sugars running high. Patient denies abdominal pain. Patient denies fever or chills. Patient denies chest pain. Patient denies shortness of breath. Patient denies dizziness. -: Sudden Severity scale (0 -10): 0 Consistency: constant Improves with: rest Worsens with: eating, movement Associated Symptoms: malaise, nausea/vomiting, weakness. denies: confusion, c hest pain, cough, diaphoresis, fever/chills, headaches, loss of appetite, rash, seizure, shortness of breath, syncope Treatments Prior to Arrival: none - Related Data Home Medications Medication Instructions Recorded Confirmed Last Taken Levothyroxine [Synthroid] 125 mcg PO QAM 06/06/19 06/06/19 Unknown Previous Rx's Medication Instructions Recorded Last Taken Type Fludrocortisone [Florinef] 0.1 mg PO QDAY #30 tablet 05/24/19 Unknown Rx HYDROcodone/APAP 5-325 [[place] 1 each PO Q4HR PRN #12 tablet 05/24/19 Unknown Rx 5-325 mg TAB] Hydrocortisone [Cortef TAB] 5 mg PO QPM #30 tablet 05/24/19 Unknown Rx Hydrocortisone [Cortef TAB] 10 mg PO QAM #30 tablet 05/24/19 Unknown Rx Insulin Glargine [Lantus VIAL] 10 units SUB-Q QAM #60 units 05/24/19 06/05/19 Rx Lispro Insulin [HumaLOG] 0 unit SUB-Q ACHS #7 units 05/24/19 Unknown Rx Ondansetron [Zofran ODT TAB] 4 mg PO Q8HR PRN #20 tab.rapdis 05/24/19 Unknown Rx Ondansetron [Zofran ODT TAB] 4 mg PO Q8HR PRN #20 tab.rapdis 05/24/19 Unknown Rx Sertraline [Zoloft] 25 mg PO QDAY #30 tablet 05/24/19 06/05/19 Rx levETIRAcetam [Keppra TAB] 500 mg PO BID #60 tablet 05/24/19 06/05/19 Rx Allergies Allergy/AdvReac Type Severity Reaction Status Date / Time Penicillins Allergy Angioedema Verified 06/14/19 11:26 vortioxetine Allergy Unknown Verified 06/14/19 11:26 [From Trintellix] ziprasidone [From Geodon] Allergy Angioedema Verified 06/14/19 11:26 vancomycin AdvReac Itching Verified 06/14/19 11:26 ED Review of Systems ROS: Stated complaint: HIGH SUGAR/VOMITING Other details as noted in HPI Constitutional: malaise, weakness. denies: chills, fever Eyes: denies: eye pain, eye discharge, vision change ENT: denies: ear pain, throat pain Respiratory: denies: cough, shortness of breath, wheezing Cardiovascular: denies: chest pain, palpitations Endocrine: no symptoms reported Gastrointestinal: nausea, vomiting. denies: abdominal pain, diarrhea Genitourinary: denies: urgency, dysuria, discharge Musculoskeletal: denies: back pain, joint swelling, arthralgia Skin: denies: rash, lesions Neurological: weakness. denies: headache, paresthesias Psychiatric: denies: anxiety, depression Hematological/Lymphatic: denies: easy bleeding, easy bruising ED Past Medical Hx - Past Medical History Previous Medical History?: Yes Hx Hypertension: No Hx Heart Attack/AMI: No Hx Congestive Heart Failure: No Hx Diabetes: Yes Hx Deep Vein Thrombosis: No Hx Pulmonary Embolism: No Hx GERD: No Hx Liver Disease: No Hx Renal Disease: No Hx Sickle Cell Disease: No Hx Arthritis: No Hx Headaches / Migraines: No Hx Seizures: Yes Hx Kidney Stones: No Hx Asthma: No Hx COPD: No Hx Tuberculosis: No Hx Dementia: No Hx HIV: No Additional medical history: hypotension, hypothyroidism, [place]'s disease, Depression, Celiac - Surgical History Past Surgical History?: Yes Hx Coronary Stent: No Hx Open Heart Surgery: No Hx Pacemaker: No Hx Internal Defibrillator: No Hx Cholecystectomy: Yes Hx Appendectomy: Yes Hx Breast Surgery: No Additional Surgical History: 4. port right chest wall - Family History Family history: no significant - Social History Smoking Status: Never Smoker Substance Use Type: None - Medications Home Medications: Home Medications Medication Instructions Recorded Confirmed Last Taken Type Fludrocortisone [Florinef] 0.1 mg PO QDAY #30 tablet 05/24/19 06/06/19 Unknown Rx HYDROcodone/APAP 5-325 [[place] 1 each PO Q4HR PRN #12 tablet 05/24/19 06/06/19 Unknown Rx 5-325 mg TAB] Hydrocortisone [Cortef TAB] 5 mg PO QPM #30 tablet 05/24/19 06/06/19 Unknown Rx Hydrocortisone [Cortef TAB] 10 mg PO QAM #30 tablet 05/24/19 06/06/19 Unknown Rx Insulin Glargine [Lantus VIAL] 10 units SUB-Q QAM #60 units 05/24/19 06/06/19 06/05/19 Rx Lispro Insulin [HumaLOG] 0 unit SUB-Q ACHS #7 units 05/24/19 06/06/19 Unknown Rx Ondansetron [Zofran ODT TAB] 4 mg PO Q8HR PRN #20 tab.rapdis 05/24/19 06/06/19 Unknown Rx Ondansetron [Zofran ODT TAB] 4 mg PO Q8HR PRN #20 tab.rapdis 05/24/19 06/06/19 Unknown Rx Sertraline [Zoloft] 25 mg PO QDAY #30 tablet 05/24/19 06/06/19 06/05/19 Rx levETIRAcetam [Keppra TAB] 500 mg PO BID #60 tablet 05/24/19 06/06/19 06/05/19 Rx Levothyroxine [Synthroid] 125 mcg PO QAM 06/06/19 06/06/19 Unknown History ED Physical Exam - General Limitations: No Limitations General appearance: alert, in no apparent distress - Head Head exam: Present: atraumatic, normocephalic - Eye Eye exam: Present: normal appearance - ENT ENT exam: Present: mucous membranes moist - Neck Neck exam: Present: normal inspection - Respiratory Respiratory exam: Present: normal lung sounds bilaterally. Absent: respiratory distress - Cardiovascular Cardiovascular Exam: Present: regular rate, normal rhythm. Absent: systolic murmur, diastolic murmur, rubs, gallop - GI/Abdominal GI/Abdominal exam: Present: soft, normal bowel sounds - Extremities Exam Extremities exam: Present: normal inspection - Back Exam Back exam: Present: normal inspection - Neurological Exam Neurological exam: Present: alert, oriented X3 - Psychiatric Psychiatric exam: Present: normal affect, normal mood - Skin Skin exam: Present: warm, dry, intact, normal color. Absent: rash ED Course Vital Signs 06/14/19 06/14/19 06/14/19 11:35 13:11 13:16 Temperature 98.7 F 98.2 F Pulse Rate 89 79 76 Respiratory 18 14 12 Rate Blood Pressure 80/68 Blood Pressure 89/62 [left arm] O2 Sat by Pulse 100 100 Oximetry 06/14/19 06/14/19 06/14/19 13:30 13:46 14:00 Temperature Pulse Rate 75 76 74 Respiratory 15 13 13 Rate Blood Pressure 89/62 89/62 88/55 Blood Pressure [left arm] O2 Sat by Pulse 96 96 96 Oximetry 06/14/19 06/14/19 06/14/19 14:16 14:30 14:46 Temperature Pulse Rate 74 72 74 Respiratory 18 17 13 Rate Blood Pressure 85/54 85/54 85/54 Blood Pressure [left arm] O2 Sat by Pulse 96 95 99 Oximetry 06/14/19 06/14/19 06/14/19 15:00 15:16 16:00 Temperature Pulse Rate 73 73 76 Respiratory 13 16 19 Rate Blood Pressure 85/54 85/54 91/62 Blood Pressure [left arm] O2 Sat by Pulse 98 100 100 Oximetry 06/14/19 06/14/19 06/14/19 16:30 16:46 17:00 Temperature Pulse Rate 75 76 75 Respiratory 14 16 12 Rate Blood Pressure 91/62 91/62 91/62 Blood Pressure [left arm] O2 Sat by Pulse 100 100 99 Oximetry - Reevaluation(s) Reevaluation #1: Initial evaluation done. Patient found to be hypotensive. 06/14/19 14:01 Reevaluation #2: She given fluids. Patient's blood pressure improved. Patient will be admitted to the hospitalist service. I discussed plan of care with patient. Patient agrees to plan of care and admission. I discussed all results with patient. 06/14/19 15:24 - Consultations Consultation #1: Hospitalist consultation for admission. Hospitalist admit patient. 06/14/19 15:25 ED Medical Decision Making - Lab Data Result diagrams: 06/14/19 13:05 12/15/19 13:05 - Medical Decision Making Patient is a 28-year-old female that presents emergency room with complaints of nausea and vomiting. Patient started vomiting is intractable. Patient also found to be hypotensive. Patient given fluids. Patient's labs were done and shows a metabolic acidosis. Patient admitted to the hospitalist service. Patient's blood pressure responded well to fluids. - Differential Diagnosis hypotension, nausea vomiting, dehydration, acidosis. Critical Care Time: Yes Critical care time in (mins) excluding proc time.: 35 Critical care attestation.: If time is entered above; I have spent that time in minutes in the direct care of this critically ill patient, excluding procedure time. Critical Care Time: 35 minutes ED Disposition Clinical Impression: Acidosis, Hyperglycemia, Metabolic acidosis, Intractable vomiting with nausea, Hyponatremia, Acute on chronic renal insufficiency, Dehydration Hypotension Qualifiers: Hypotension type: unspecified hypotension type Qualified Code(s): I95.9 - Hypotension, unspecified Nausea & vomiting Qualifiers: Vomiting type: unspecified Vomiting Intractability: intractable Qualified Code(s): R11.2 - Nausea with vomiting, unspecified Disposition: DC-09 OP ADMIT IP TO THIS HOSP Is pt being admited?: Yes Does the pt Need Aspirin: No Condition: Critical Time of Disposition: 15:25
--- NOTE | 2019-06-14 15:25 | History and Physical Report ---
History of Present Illness Chief complaint: I keep throwing up History of present illness: 28 YO Female ALLEN resident at [facility] with DM, Addisons Disease, Seizure Disorder, Hypothyroidism, presents to ED for evaluation. Pt states that she experienced nausea, and multiple episodes of vomiting over the past 12 hours w ith high glucose levels and worsening symptoms over the same time frame. Pt states that she has not been able to control her blood glucose levels. Pt acknowledges polydipsia, polyruia, generalized weakness, multiple episodes of uncontrolled nausea and vomiting. EMS notified, and upon arrival the patient was found to be in distress and transported to [facility]. Pt seen and evaluated in ED and found to have Uncontrolled Diabetes, BRANDEE, Metabolic Acidosis, and Hyponatremia. PT placed in observation status and admitted to medical floor for medical stabilization and monitoring for worsening symptoms. Pt is ill appearing, and unable to tolerate oral intake. Pt treated with supportive care. Pt denies f ever, chills, CP, Palpitations, NVD, Trauma, Productive cough, Skin rash, recent ill contacts, BRBPR, skin rash. Prior admission on 06/05/19 reviewed. All listed medication reconciled at time of admission. Past History Past Surgical History: appendectomy, cholecystectomy, , Other (Port placement) Social history: single. denies: smoking, alcohol abuse, prescription drug abuse Family history: diabetes, hypertension Medications and Allergies Allergies Allergy/AdvReac Type Severity Reaction Status Date / Time Penicillins Allergy Angioedema Verified 06/14/19 11:26 vortioxetine Allergy Unknown Verified 06/14/19 11:26 [From Trintellix] ziprasidone [From Geodon] Allergy Angioedema Verified 06/14/19 11:26 vancomycin AdvReac Itching Verified 06/14/19 11:26 Home Medications Medication Instructions Recorded Confirmed Last Taken Type Fludrocortisone [Florinef] 0.1 mg PO QDAY #30 tablet 05/24/19 06/06/19 Unknown Rx HYDROcodone/APAP 5-325 [[place] 1 each PO Q4HR PRN #12 tablet 05/24/19 06/06/19 Unknown Rx 5-325 mg TAB] Hydrocortisone [Cortef TAB] 5 mg PO QPM #30 tablet 05/24/19 06/06/19 Unknown Rx Hydrocortisone [Cortef TAB] 10 mg PO QAM #30 tablet 05/24/19 06/06/19 Unknown Rx Insulin Glargine [Lantus VIAL] 10 units SUB-Q QAM #60 units 05/24/19 06/06/19 06/05/19 Rx Lispro Insulin [HumaLOG] 0 unit SUB-Q ACHS #7 units 05/24/19 06/06/19 Unknown Rx Ondansetron [Zofran ODT TAB] 4 mg PO Q8HR PRN #20 tab.rapdis 05/24/19 06/06/19 Unknown Rx Ondansetron [Zofran ODT TAB] 4 mg PO Q8HR PRN #20 tab.rapdis 05/24/19 06/06/19 Unknown Rx Sertraline [Zoloft] 25 mg PO QDAY #30 tablet 05/24/19 06/06/19 06/05/19 Rx levETIRAcetam [Keppra TAB] 500 mg PO BID #60 tablet 05/24/19 06/06/19 06/05/19 Rx Levothyroxine [Synthroid] 125 mcg PO QAM 06/06/19 06/06/19 Unknown History Review of Systems Constitutional: no weight loss, no weight gain, no fever Ears, nose, mouth and throat: no ear pain, no ear discharge, no tinnitis, no decreased hearing, no nasal congestion, no nasal discharge Breasts: no change in shape, no swelling, no mass Cardiovascular: no chest pain, no palpitations, no rapid/irregular heart beat, no syncope, no lightheadedness Respiratory: no cough, no cough with sputum, no excessive sputum, no shortness of breath Gastrointestinal: nausea, vomiting, no constipation, no coffee ground emesis, no BRBPR, no melena, no indigestion Genitourinary Female: no pelvic pain, no flank pain, no menorrhagia, no dysuria, no urinary frequency, no urgency Rectal: no pain, no incontinence, no bleeding Musculoskeletal: no neck stiffness, no neck pain, no shooting arm pain, no low back pain, no leg numbness/tingling, no redness of joints Integumentary: no rash, no pruritis, no sores, no wounds, no jaundice Neurological: no transient paralysis, no paralysis, no weakness, no numbness, no syncope, no tremors Psychiatric: no anxiety, no memory loss, no change in sleep habits, no sleep disturbances, no change in appetite Endocrine: polyphagia, excessive thirst, polydipsia, polyuria, high blood sugars, no cold intolerance, no heat intolerance, no thyroid mass, no palpatations Hematologic/Lymphatic: no easy bruising, no easy bleeding, no lymphadenopathy, no lymphedema Allergic/Immunologic: no allergic rhinitis, no wheezing, no persistent infections, no anaphylaxis, no angioedema Exam - Constitutional Vitals: Temp Pulse Resp BP Pulse Ox 98.2 F 79 14 89/62 100 06/14/19 13:16 06/14/19 13:11 06/14/19 13:11 06/14/19 13:16 06/14/19 11:35 General appearance: Present: mild distress - EENT Eyes: Present: PERRL ENT: hearing intact, clear oral mucosa, other (dry oral mucosa) - Neck Neck: Present: supple, normal ROM - Respiratory Respiratory effort: normal Respiratory: bilateral: CTA - Cardiovascular Heart Sounds: Present: S1 & S2. Absent: rub, click - Extremities Extremities: pulses symmetrical, No edema Peripheral Pulses: within normal limits - Abdominal General gastrointestinal: Present: soft, non-tender, non-distended, normal bowel sounds Female genitourinary: Present: normal - Integumentary Integumentary: Present: dry, clammy, decreased turgor - Musculoskeletal Musculoskeletal: generalized weakness - Psychiatric Psychiatric: appropriate mood/affect, intact judgment & insight, agitated - Neurologic Neurologic: CNII-XII intact, moves all extremities Results - Labs CBC & Chem 7: 06/14/19 13:05 06/14/19 13:05 Labs: Abnormal lab results 06/14/19 06/14/19 06/14/19 Range/Units 11:48 12:35 13:05 RBC 3.63 L (3.65-5.03) M/mm3 Hgb 9.7 L (10.1-14.3) gm/dl Hct 29.8 L (30.3-42.9) % MCH 27 L (28-32) pg RDW 20.6 H (13.2-15.2) % Plt Count 131 L (140-440) K/mm3 Lymph % (Auto) 44.6 H (13.4-35.0) % Sodium (137-145) mmol/L Chloride (98-107) mmol/L Carbon Dioxide (22-30) mmol/L BUN (7-17) mg/dL Creatinine (0.7-1.2) mg/dL Glucose (65-100) mg/dL POC Glucose 399 H (70-105) Calcium (8.4-10.2) mg/dL AST (5-40) units/L ALT (7-56) units/L Total Protein (6.3-8.2) g/dL Albumin (3.9-5) g/dL Urine WBC (Auto) 10.0 H (0.0-6.0) /HPF 06/14/19 Range/Units 13:05 RBC (3.65-5.03) M/mm3 Hgb (10.1-14.3) gm/dl Hct (30.3-42.9) % MCH (28-32) pg RDW (13.2-15.2) % Plt Count (140-440) K/mm3 Lymph % (Auto) (13.4-35.0) % Sodium 130 L (137-145) mmol/L Chloride 93.3 L (98-107) mmol/L Carbon Dioxide 21 L (22-30) mmol/L BUN 20 H (7-17) mg/dL Creatinine 1.4 H (0.7-1.2) mg/dL Glucose 428 H (65-100) mg/dL POC Glucose (70-105) Calcium 8.0 L (8.4-10.2) mg/dL AST 147 H (5-40) units/L ALT 86 H (7-56) units/L Total Protein 5.6 L (6.3-8.2) g/dL Albumin 3.0 L (3.9-5) g/dL Urine WBC (Auto) (0.0-6.0) /HPF Assessment and Plan - Patient Problems (1) ARF (acute renal failure) with tubular necrosis Current Visit: No Status: Acute Plan to address problem: IVF resuscitation therapy, monitor uop q shift, bmp, repeat bmp to monitor serum creatnine, avoid nephrotoxic agents. (2) Metabolic acidosis Current Visit: Yes Status: Acute Plan to address problem: IVF resuscitation therapy, IV bicarbonate therapy, repeat bmp in am. (3) Uncontrolled diabetes mellitus Current Visit: No Status: Acute Qualifiers: Coma presence: without coma Plan to address problem: ADA diet, insulin sliding scale, accu check, hypoglycemia protocol (4) Intractable vomiting with nausea Current Visit: Yes Status: Acute Plan to address problem: IVF resuscitation therapy, bowel rest, antiemetic therapy (5) Addisons disease Current Visit: No Status: Chronic Plan to address problem: supportive care, continue prehospital therapy. Outpatient Endocrinology F/U care. (6) DVT prophylaxis Current Visit: Yes Status: Acute Plan to address problem: SCD to BLE while in bed, Pt ambulatory
[2019-06-14] MEDS ORDERED: ACETAMINOPHEN 325 MG TAB PO PRN (15:26)
[2019-06-14] MEDS ORDERED: ALBUTEROL 2.5 MG/3 ML NEBU IH PRN (15:26)
[2019-06-14] MEDS ORDERED: ONDANSETRON 4 MG/2 ML INJ IV PRN (15:26)
[2019-06-14] MEDS ORDERED: DEXTROSE 50% IN WATER (25GM) 50 ML SYRINGE IV PRN (15:29)
[2019-06-14] MEDS ORDERED: SODIUM CHLORIDE 0.9% 1000 ML IV SOLN IV ONE ×3 (15:30→16:27)
[2019-06-14] MEDS ORDERED: SODIUM CHLORIDE 0.9% 1000 ML 2,000 ML ONE (15:32)
[2019-06-14] MEDS ORDERED: SODIUM CHLORIDE 0.45% IV SCH (16:00)
[2019-06-14] MEDS ORDERED: SODIUM CHLORIDE 0.45% 1000 ML 1,000 ML IV SCH (16:00)
[2019-06-14] MEDS: levETIRAcetam 500 MG TAB PO SCH ×3 (16:14→22:50)
[2019-06-14] MEDS: HYDROcodone/ACETAMINOPHEN 5-325 MG TAB PO PRN (16:18)
[2019-06-14] MEDS ORDERED: INSULIN LISPRO 100 UNIT/ML SUB-Q ONE (18:10)
[2019-06-14] MEDS: INSULIN LISPRO 100 UNIT/ML SUB-Q SCH (18:16)
[2019-06-14] MEDS: HYDROCORTISONE 10 MG TAB PO SCH (22:50)
[2019-06-15] MEDS: INSULIN LISPRO 100 UNIT/ML SUB-Q SCH ×5 (02:27→23:37)
[2019-06-15] MEDS: LEVOTHYROXINE 125 MCG TAB PO SCH (06:40)
[2019-06-15] MEDS ORDERED: SODIUM CHLORIDE 0.9% 1000 ML 1,000 ML IV ONE (09:09)
[2019-06-15 09:59] LABS: BUN/Creatinine Ratio 13; Blood Urea Nitrogen 13 mg/dL (7-17); Hemolysis Index 2
[2019-06-15] MEDS: levETIRAcetam 500 MG TAB PO SCH ×2 (10:27→22:14)
[2019-06-15] MEDS: HYDROCORTISONE 10 MG TAB PO SCH ×2 (10:27→17:56)
[2019-06-15] MEDS: SERTRALINE 25 MG TAB PO SCH (10:28)
--- NOTE | 2019-06-15 12:53 | Progress Note ---
Assessment and Plan Assessment and plan: 28-year-old female that presents emergency room with complaints of nausea and vomiting that started this morning. Intractable nausea vomiting initial work-up is consistent with acute renal failure, metabolic acidosis, uncontrolled diabetes mellitus. Pedis patient has chronic hypotension , very labile blood sugars Multiple admissions in the past --Hypotension: continue Florinef, IV fluids -- ARF (acute renal failure) with tubular necrosis Current Visit: No Status: Acute fluid boluses, IVF resuscitation therapy, monitor uop q shift, bmp, Renal function back to normal baseline --Metabolic acidosis Current Visit: Yes Status: Acute Plan to address problem: IVF resuscitation therapy, IV bicarbonate therapy, repeat bmp in am. 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 Outpatient Endocrinology F/U care. --DVT prophylaxis Current Visit: Yes Status: Acute SCD to BLE while in bed, Pt ambulatory Monitor closely and adjust management as needed Disposition ;possible discharge in 1 to 2 days if stable Plan of care reviewed with the patient and her nurse History Interval history: Patient seen and examined medical records reviewed Patient complains of dizziness, hypotensive Complaints of generalized weakness and vague chest pain Vital signs reviewed Hospitalist Physical - Constitutional Vitals: Temp Pulse Resp BP Pulse Ox 97.2 F L 68 15 80/49 100 06/15/19 05:02 06/15/19 05:02 06/15/19 05:02 06/15/19 05:05 06/15/19 05:02 General appearance: Present: mild distress, well-nourished - EENT Eyes: Present: PERRL, EOM intact - Neck Neck: Present: supple, normal ROM - Respiratory Respiratory effort: normal Respiratory: bilateral: diminished, negative: rales, rhonchi, wheezing - Cardiovascular Rhythm: regular Heart Sounds: Present: S1 & S2 - Extremities Extremities: no ischemia, No edema - Abdominal General gastrointestinal: soft, non-tender, non-distended, normal bowel sounds - Integumentary Integumentary: Present: clear, warm - Psychiatric Psychiatric: appropriate mood/affect, cooperative - Neurologic Neurologic: CNII-XII intact, moves all extremities Results - Labs CBC & Chem 7: 06/14/19 13:05 06/15/19 09:15 Labs: Laboratory Last Values WBC 5.5 K/mm3 (4.5-11.0) 06/14/19 13:05 RBC 3.63 M/mm3 (3.65-5.03) L 06/14/19 13:05 Hgb 9.7 gm/dl (10.1-14.3) L 06/14/19 13:05 Hct 29.8 % (30.3-42.9) L 06/14/19 13:05 MCV 82 fl (79-97) 06/14/19 13:05 MCH 27 pg (28-32) L 06/14/19 13:05 MCHC 32 % (30-34) 06/14/19 13:05 RDW 20.6 % (13.2-15.2) H 06/14/19 13:05 Plt Count 131 K/mm3 (140-440) L 06/14/19 13:05 Lymph % (Auto) 44.6 % (13.4-35.0) H 06/14/19 13:05 [place] % (Auto) 4.1 % (0.0-7.3) 06/14/19 13:05 Eos % (Auto) 1.8 % (0.0-4.3) 06/14/19 13:05 Baso % (Auto) 1.1 % (0.0-1.8) 06/14/19 13:05 Lymph # 2.5 K/mm3 (1.2-5.4) 06/14/19 13:05 [place] # 0.2 K/mm3 (0.0-0.8) 06/14/19 13:05 Eos # 0.1 K/mm3 (0.0-0.4) 06/14/19 13:05 Baso # 0.1 K/mm3 (0.0-0.1) 06/14/19 13:05 Seg Neutrophils % 48.4 % (40.0-70.0) 06/14/19 13:05 Seg Neutrophils # 2.7 K/mm3 (1.8-7.7) 06/14/19 13:05 Sodium 135 mmol/L (137-145) L 06/15/19 09:15 Potassium 3.8 mmol/L (3.6-5.0) 06/15/19 09:15 Chloride 103.1 mmol/L (98-107) 06/15/19 09:15 Carbon Dioxide 19 mmol/L (22-30) L 06/15/19 09:15 Anion Gap 17 mmol/L 06/15/19 09:15 BUN 13 mg/dL (7-17) 06/15/19 09:15 Creatinine 1.0 mg/dL (0.7-1.2) 06/15/19 09:15 Estimated GFR > 60 ml/min 06/15/19 09:15 BUN/Creatinine Ratio 13 % 06/15/19 09:15 Glucose 171 mg/dL (65-100) H 06/15/19 09:15 POC Glucose 282 (70-105) H 06/15/19 06:49 Calcium 7.0 mg/dL (8.4-10.2) L 06/15/19 09:15 Total Bilirubin 0.70 mg/dL (0.1-1.2) 06/14/19 13:05 AST 147 units/L (5-40) H 06/14/19 13:05 ALT 86 units/L (7-56) H 06/14/19 13:05 Alkaline Phosphatase 120 units/L (35-129) 06/14/19 13:05 Total Protein 5.6 g/dL (6.3-8.2) L 06/14/19 13:05 Albumin 3.0 g/dL (3.9-5) L 06/14/19 13:05 Albumin/Globulin Ratio 1.2 % 06/14/19 13:05 Urine Color Yellow (Yellow) 06/14/19 12:35 Urine Turbidity Clear (Clear) 06/14/19 12:35 Urine pH 5.0 (5.0-7.0) 06/14/19 12:35 Ur Specific [place] 1.021 (1.003-1.030) 06/14/19 12:35 Urine Protein <15 mg/dl mg/dL (Negative) 06/14/19 12:35 Urine Glucose (UA) >=500 mg/dL (Negative) 06/14/19 12:35 Urine Ketones 20 mg/dL (Negative) 06/14/19 12:35 Urine Blood Neg (Negative) 06/14/19 12:35 Urine Nitrite Neg (Negative) 06/14/19 12:35 Urine Bilirubin Neg (Negative) 06/14/19 12:35 Urine Urobilinogen < 2.0 mg/dL (<2.0) 06/14/19 12:35 Ur Leukocyte Esterase Neg (Negative) 06/14/19 12:35 Urine WBC (Auto) 10.0 /HPF (0.0-6.0) H 06/14/19 12:35 Urine RBC (Auto) 2.0 /HPF (0.0-6.0) 06/14/19 12:35 U Epithel Cells (Auto) 1.0 /HPF (0-13.0) 06/14/19 12:35 Urine Mucus Few /HPF 06/14/19 12:35 Active Medications - Current Medications Current Medications: Generic Name Dose Route Start Last Admin Trade Name Freq PRN Reason Stop Dose Admin Acetaminophen 650 mg 06/14/19 15:26 Tylenol PO Q4H PRN Pain MILD(1-3)/Fever >100.5/STEWARD Acetaminophen/Hydrocodone [place] 1 each 06/14/19 15:28 06/14/19 16:18 [place] 5/325 PO 1 each Q4H PRN Administration Pain , Severe (7-10) Albuterol 2.5 mg 06/14/19 15:26 Proventil IH Q4H PRN Shortness Of Breath Dextrose 50 ml 06/14/19 15:29 D50w (25gm) Syringe IV Q30MIN PRN Hypoglycemia Protocol Fludrocortisone Acetate 0.1 mg 06/15/19 10:00 Florinef PO QDAY MARINO Hydrocortisone Acetate 5 mg 06/14/19 18:00 06/14/19 22:50 Cortef PO 5 mg QPM MARINO Administration Hydrocortisone Acetate 10 mg 06/15/19 10:00 06/15/19 10:27 Cortef PO 10 mg QAM MARINO Administration Sodium Chloride 2,000 mls @ 100 mls/hr 06/14/19 16:00 06/14/19 22:32 Nacl 0.45% 1000 Ml IV 100 mls/hr DIRECT MARINO Administration Insulin Human Lispro 0 unit 06/14/19 18:00 06/15/19 06:43 Humalog SUB-Q 6 unit Q6HR MARINO Administration Protocol Levetiracetam 500 mg 06/14/19 16:00 06/15/19 10:27 Keppra PO 500 mg BID MARINO Administration Levothyroxine Sodium 125 mcg 06/15/19 06:00 06/15/19 06:40 Synthroid PO 125 mcg QAM@0600 MARINO Administration Ondansetron HCl 4 mg 06/14/19 15:26 Zofran IV Q8H PRN Nausea And Vomiting Sertraline HCl 25 mg 06/15/19 10:00 06/15/19 10:28 Zoloft PO 25 mg QDAY MARINO Administration Sodium Chloride 10 ml 06/14/19 22:00 06/15/19 10:28 Sodium Chloride Flush Syringe 10 Ml IV 10 ml BID MARINO Administration Sodium Chloride 10 ml 06/14/19 15:26 Sodium Chloride Flush Syringe 10 Ml IV PRN PRN LINE FLUSH
[2019-06-15] MEDS: FLUDROCORTISONE 0.1 MG TAB PO SCH (15:55)
[2019-06-16] MEDS ORDERED: SODIUM CHLORIDE 0.9% 1000 ML 1,000 ML IV SCH (00:30)
[2019-06-16] MEDS ORDERED: SODIUM CHLORIDE 0.9% 500 ML 500 ML IV ONE (04:38)
[2019-06-16] MEDS: LEVOTHYROXINE 125 MCG TAB PO SCH (05:07)
[2019-06-16] MEDS: INSULIN LISPRO 100 UNIT/ML SUB-Q SCH ×3 (06:26→17:52)
[2019-06-16] MEDS: levETIRAcetam 500 MG TAB PO SCH (10:02)
[2019-06-16] MEDS: HYDROCORTISONE 10 MG TAB PO SCH (10:02)
[2019-06-16] MEDS: SERTRALINE 25 MG TAB PO SCH (10:02)
[2019-06-16] MEDS: FLUDROCORTISONE 0.1 MG TAB PO SCH (10:02)
--- NOTE | 2019-06-16 11:45 | Discharge Summary ---
Providers - Providers Date of Admission: 06/15/19 16:04 Date of discharge: 06/16/19 Attending physician: CHLOE MATHEW Primary care physician: [facility] Hospitalization Condition: Stable Hospital course: Patient is a 28-year-old who with a history of mental illness on psych medications, Gastroparesis, DM, Dante Disease with baseline hypotension and recurrent/excessive ED visits (she averages 4 ED visits per month for last 3 months) who presents with a myraid of compliants that including nausea and vomiting which has resolved and she is tolerating liquids. Intractable nausea vomiting initial work-up is consistent with acute renal failure, metabolic acidosis, uncontrolled diabetes mellitus. Discharge Diagnoses: --Hypotension continue Florinef, IV fluids -- ARF (acute renal failure) with tubular necrosis Current Visit: No Status: Acute fluid boluses, IVF resuscitation therapy, monitor uop q shift, bmp, Renal function back to normal baseline --Metabolic acidosis Current Visit: Yes Status: Acute Plan to address problem: IVF resuscitation therapy, IV bicarbonate therapy, repeat bmp in am. 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 Outpatient Endocrinology F/U care. --DVT prophylaxis Current Visit: Yes Status: Acute SCD to BLE while in bed, Pt ambulatory Disposition: DC-01 TO HOME OR SELFCARE Time spent for discharge: 34 minutes Core Measure Documentation - Palliative Care Palliative Care/ Comfort Measures: Not Applicable - Core Measures Any of the following diagnoses?: none - VTE Discharge Requirements Deep Vein Thrombosis/Pulmonary Embolism Present on Admission: No Has pt received <5 days of overlap therapy or INR<2.0: No Anticoagulant overlap therapy prescribed at discharge: No Contraindication No Overlap Therapy order at DC: Not Indicated Exam - Physical Exam Narrative exam: Gen: WDWN, NAD, Awake, Alert, Orientated x 3 HEENT: NCAT, EOMI, PERRL, OP Clear Neck: supple, no adenopathy, no thyromegaly, no JVD CVS/Heart: RRR, normal S1S2, pulses present bilaterally Chest/Lungs: CTA B, Symmetrical chest expansion, good air entry bilaterally, reproducible substernal CW tenderness GI/Abdomen: soft, NTND, good bowel sounds, no guarding or rebound /Bladder: no suprapubic tenderness, no CVA or paraspinal tenderness Extermity/Skin: no c/c/e, no obvious rash MSK: FROM x 4 Neuro: CN 2-12 grossly intact, no new focal deficits Psych: calm - Constitutional Vitals: Temp Pulse Resp BP Pulse Ox 97.5 F L 72 18 91/59 100 06/16/19 04:35 06/16/19 04:35 06/16/19 04:35 06/16/19 06:00 06/16/19 10:00 Plan Activity: other (no strenous activity ) Diet: low salt Follow up with: ZAINA LONDONO MD [Primary Care Provider] - 3-5 Days
[2019-06-16] MEDS: HYDROcodone/ACETAMINOPHEN 5-325 MG TAB PO PRN (12:34)
[2019-06-16 14:36] VITALS: BP 103/68
[2019-06-16] MEDS ORDERED: NEOMY 3.5 MG/BACIT 400 UNITS/POLY B 5000 UNITS/GM OINT PACKET TP ONE (15:44)
== END 2019-06-16 19:24 | disposition home or self-care (01) | DRG 637 ==
LOC: ED 11:17 → 3A 15:26 → OBSVTOIN 06-15 16:04
PROVIDERS: ADMIT Internal Medicine; ATTEND Internal Medicine
DX: E11.65 Type 2 diabetes mellitus with hyperglycemia (principal); N17.0 Acute kidney failure with tubular necrosis; E27.1 Primary adrenocortical insufficiency; E87.2 Acidosis; E87.1 Hypo-osmolality and hyponatremia; I95.9 Hypotension, unspecified; Z90.49 Acquired absence of other specified parts of digestive tract; Z82.49 Family history of ischemic heart disease and other diseases of the circulatory system; Z83.3 Family history of diabetes mellitus; Z88.0 Allergy status to penicillin; Z88.1 Allergy status to other antibiotic agents; Z79.899 Other long term (current) drug therapy; Z79.4 Long term (current) use of insulin
CPT/HCPCS: 36415; 80048; 80053; 81001; 82962; 85025; 87086; 87116; 94760; G0378; A6250; J1642; J1815; J2405; J7030; J7040

== ENCOUNTER 2019-08-07 23:12 | Emergency (ER) | payer MEDICAID ==
[2019-08-08 05:26] LABS: Hematocrit 25.7 % (30.3-42.9); Hemoglobin 8.6 gm/dl (10.1-14.3); Mean Corpuscular HGB Conc 34 % (30-34); Mean Corpuscular Volume 84 fl (79-97); Platelet Count 187 K/mm3 (140-440); Red Blood Count 3.04 M/mm3 (3.65-5.03)
[2019-08-08 05:51] LABS: Albumin 3.4 g/dL (3.9-5); Calcium 8.3 mg/dL (8.4-10.2)
[2019-08-08] MEDS ORDERED: INSULIN REGULAR, HUMAN 100 UNITS/1 ML IV ONE (06:03)
[2019-08-08] MEDS ORDERED: SODIUM CHLORIDE 0.9% 1000 ML 1,000 ML IV ONE ×3 (06:03→11:28)
--- NOTE | 2019-08-08 06:30 | Emergency Department Report ---
HPI - General Chief Complaint: Dizziness Time Seen by Provider: 08/08/19 05:57 - HPI HPI: 28-year-old female presents to the emergency department with complaint of a 2 day history of some lightheadedness/dizziness and uncontrolled blood sugar. The patient has a past medical history that includes insulin-dependent diabetes, seizures, hypothyroidism, Dante's disease, depression and celiac disease. The patient is well-known to myself and this department and she has been here previously for the symptoms many times. She has a primary care physician but cannot currently remember their name. She is on Lantus 10 units every morning and Humalog on a sliding scale with meals and at night. She says she has been compliant but the blood sugar has been running high. She denies any headache, vision change, chest pain, shortness of breath, nausea, vomiting or fever. No recent travel or sick contacts at home. ED Past Medical Hx - Past Medical History Previous Medical History?: Yes Hx Hypertension: No Hx Heart Attack/AMI: No Hx Congestive Heart Failure: No Hx Diabetes: Yes (Type 1) Hx Deep Vein Thrombosis: No Hx Pulmonary Embolism: No Hx GERD: No Hx Liver Disease: No Hx Renal Disease: No Hx Sickle Cell Disease: No Hx Arthritis: No Hx Headaches / Migraines: No Hx Seizures: Yes Hx Kidney Stones: No Hx Asthma: No Hx COPD: No Hx Tuberculosis: No Hx Dementia: No Hx HIV: No Additional medical history: hypotension, hypothyroidism, Hurley's disease, Depression, Celiac - Surgical History Past Surgical History?: Yes Hx Coronary Stent: No Hx Open Heart Surgery: No Hx Pacemaker: No Hx Internal Defibrillator: No Hx Cholecystectomy: Yes Hx Appendectomy: Yes Hx Breast Surgery: No Additional Surgical History: 4. port right chest wall - Social History Smoking Status: Never Smoker Substance Use Type: None - Medications Home Medications: Home Medications Medication Instructions Recorded Confirmed Last Taken Type Hydrocortisone [Cortef TAB] 5 mg PO QPM #30 tablet 05/24/19 07/13/19 Unknown Rx Insulin Glargine [Lantus VIAL] 10 units SUB-Q QAM #60 units 05/24/19 07/13/19 06/05/19 Rx Acetaminophen [Acetaminophen TAB] 2 tab PO Q4H PRN #15 tablet 06/16/19 07/13/19 Unknown Rx Acetaminophen [Acetaminophen TAB] 650 mg PO Q4H PRN #15 tablet 07/16/19 Unknown Rx Fludrocortisone [Florinef] 0.1 mg PO QDAY #30 tablet 07/16/19 Unknown Rx HYDROcodone/APAP 5-325 [[place] 1 each PO Q4HR PRN #12 tablet 07/16/19 Unknown Rx 5-325 mg TAB] Levothyroxine [Synthroid] 150 mcg PO DAILY@0600 #30 tablet 07/16/19 Unknown Rx Lispro Insulin [HumaLOG] 1 dose SUB-Q ACHS PRN #1000 units 07/16/19 Unknown Rx OLANzapine [ZyPREXA] 2.5 mg PO QDAY #30 tablet 07/16/19 Unknown Rx Ondansetron [Zofran ODT TAB] 4 mg PO Q8HR PRN #20 tab.rapdis 07/16/19 Unknown Rx Sertraline [Zoloft] 25 mg PO QDAY #30 tablet 07/16/19 Unknown Rx levETIRAcetam [Keppra TAB] 500 mg PO BID #60 tablet 07/16/19 Unknown Rx Nitrofurantoin [place]/M-Cryst 100 mg PO Q12HR #16 capsule 08/08/19 Unknown Rx [Macrobid CAP] ED Review of Systems ROS: Stated complaint: DIZZINESS/HYPERGLYCEMIA/LOW BP Other details as noted in HPI Comment: All other systems reviewed and negative Constitutional: denies: chills, fever Eyes: denies: eye pain, vision change ENT: denies: ear pain, throat pain Respiratory: denies: cough, shortness of breath Cardiovascular: denies: chest pain, palpitations Gastrointestinal: denies: abdominal pain, vomiting Genitourinary: denies: dysuria, discharge Musculoskeletal: denies: back pain, arthralgia Skin: denies: rash, lesions Neurological: other (dizzy/lightheaded). denies: headache Physical Exam - Physical Exam Vital Signs: Vital Signs 08/07/19 08/08/19 08/08/19 23:20 05:25 05:31 Temperature 97.8 F 98.4 F Pulse Rate 86 80 80 Respiratory 14 14 10 L Rate Blood Pressure 95/65 Blood Pressure 98/69 [left arm] O2 Sat by Pulse 100 98 98 Oximetry 08/08/19 08/08/19 08/08/19 05:45 05:50 06:00 Temperature Pulse Rate 84 82 Respiratory 10 L 10 L Rate Blood Pressure 98/64 Blood Pressure 97/60 [left arm] O2 Sat by Pulse 98 98 Oximetry 08/08/19 06:15 Temperature Pulse Rate 78 Respiratory 12 Rate Blood Pressure 93/61 Blood Pressure [left arm] O2 Sat by Pulse Oximetry Physical Exam: GENERAL: The patient is well-developed well-nourished. HEENT: Normocephalic. Atraumatic. Patient has moist mucous membranes. EYES: Extraocular motions are intact. NECK: Supple. Trachea is midline. CHEST/LUNGS: Clear to auscultation. There is no respiratory distress noted. HEART/CARDIOVASCULAR: Regular. There is no tachycardia. There is no murmur. ABDOMEN: Abdomen is soft, nontender. Patient has normal bowel sounds. There is no abdominal distention. SKIN:Skin is warm and dry. . NEURO: The patient is awake, alert, and oriented. The patient is cooperative. The patient has no focal neurologic deficits. Normal speech. Cranial nerves II through XII grossly intact. MUSCULOSKELETAL: There is no tenderness or deformity. There is no limitation range of motion. There is no evidence of acute injury. ED Course Vital Signs 08/07/19 08/08/19 08/08/19 23:20 05:25 05:31 Temperature 97.8 F 98.4 F Pulse Rate 86 80 80 Respiratory 14 14 10 L Rate Blood Pressure 95/65 Blood Pressure 98/69 [left arm] O2 Sat by Pulse 100 98 98 Oximetry 08/08/19 08/08/19 08/08/19 05:45 05:50 06:00 Temperature Pulse Rate 84 82 Respiratory 10 L 10 L Rate Blood Pressure 98/64 Blood Pressure 97/60 [left arm] O2 Sat by Pulse 98 98 Oximetry 08/08/19 06:15 Temperature Pulse Rate 78 Respiratory 12 Rate Blood Pressure 93/61 Blood Pressure [left arm] O2 Sat by Pulse Oximetry ED Medical Decision Making - Lab Data Result diagrams: 08/08/19 05:14 08/08/19 05:14 - EKG Data -: EKG Interpreted by Al EKG shows normal: sinus rhythm, axis, intervals (prolonged CT interval), QRS complexes (low-voltage), ST-T waves Rate: normal - EKG Data When compared to previous EKG there are: no significant change Interpretation: unchanged when compared t (07/13/19) - Medical Decision Making This patient presents to the emergency department with a complaint of some lightheadedness/dizziness and uncontrolled blood sugar. The blood sugar was about 550 there was no venous acidosis or elevated anion gap and this does not appear consistent with diabetic ketoacidosis. The patient was given IV insulin and IV fluid resuscitation and her blood sugar has come down to a more reasonable level, about 250. Patient also has some hypotension. At one point she was 80/60 but has come up to a more reasonable level after 2 L of IV fluid resuscitation and once the fluid stopped the blood pressure remained stable. This may have been secondary to hydration versus Dante's disease. The patient does have hypothyroidism as well with an elevated TSH of about 17 and a low free T4 of 0.2. However, given the hypothyroidism, history of Hurley's disease, the transient hypotension, it was my recommendation for the patient be admitted to the hospital for further evaluation and treatment. The case was presented to the admitting hospitalist, Dr. Han, who has chosen to treat and discharge this patient home. - Differential Diagnosis hypothyroidism, Hurley's disease, DKA, dehydration Critical Care Time: No Critical care attestation.: If time is entered above; I have spent that time in minutes in the direct care of this critically ill patient, excluding procedure time. ED Disposition Clinical Impression: Hurley's disease, Dehydration, Hyperglycemia Hypothyroidism Qualifiers: Hypothyroidism type: unspecified Qualified Code(s): E03.9 - Hypothyroidism, unspecified UTI (urinary tract infection) Qualifiers: Urinary tract infection type: acute cystitis Hematuria presence: without hematuria Qualified Code(s): N30.00 - Acute cystitis without hematuria Disposition: OP ADMIT IP TO THIS HOSP Is pt being admited?: Yes Condition: Stable Instructions: Urinary Tract Infection in Women (ED), Diabetic Hyperglycemia (ED) Prescriptions: Nitrofurantoin [place]/M-Cryst [Macrobid CAP] 100 mg PO Q12HR #16 capsule Referrals: ZAINA LONDONO MD [Primary Care Provider] - 3-5 Days Time of Disposition: 15:04
[2019-08-08 06:55] LABS: Band Neutrophils # (Manual) 0.1 K/mm3; Basophils % (Manual) 0 % (0.0-1.8); Total Cells Counted 100
[2019-08-08 06:56] LABS: Anisocytosis 1+; Stomatocytes Few
[2019-08-08 06:58] LABS: Platelet Estimate Consistent w Auto
[2019-08-08 10:59] LABS: Bacteria,Urine 1+ /HPF (Negative); Bilirubin,Urine NEG (Negative); Blood,Urine NEG (Negative); Color,Urine Straw (Yellow); Protein,Urine <15 mg/dL mg/dL (Negative); Urobilinogen,Urine < 2.0 mg/dL (<2.0)
[2019-08-08] MEDS ORDERED: NITROFURANTOIN MONOHYD/M-CRYST 100 MG CAP PO ONE (11:28)
--- NOTE | 2019-08-08 14:28 | Event Note ---
Date: 08/08/19 28-year-old female presents to the emergency department with complaint of a 2 day history of some lightheadedness/dizziness and uncontrolled blood sugar. The patient has a past medical history that includes insulin-dependent diabetes, seizures, hypothyroidism, Dante's disease, depression and celiac disease. The patient is well-known to myself and this department and she has been here previously for the symptoms many times. She has a primary care physician but cannot currently remember their name. She is on Lantus 10 units every morning and Humalog on a sliding scale with meals and at night. She says she has been compliant but the blood sugar has been running high. She denies any headache, vision change, chest pain, shortness of breath, nausea, vomiting or fever. No recent travel or sick contacts at home. Was hypotensive which was corrected in ED Feels better BP 115/85
[2019-08-08 15:10] VITALS: BP 103/72
== END 2019-08-08 15:10 | disposition admitted as inpatient to this hospital (09) ==
LOC: ED 23:12
DX: E27.1 Primary adrenocortical insufficiency (principal); E86.0 Dehydration; E10.65 Type 1 diabetes mellitus with hyperglycemia; E03.9 Hypothyroidism, unspecified; N39.0 Urinary tract infection, site not specified; G40.909 Epilepsy, unspecified, not intractable, without status epilepticus; F32.9 Major depressive disorder, single episode, unspecified; Z90.49 Acquired absence of other specified parts of digestive tract; Z98.890 Other specified postprocedural states; Z79.899 Other long term (current) drug therapy; Z88.0 Allergy status to penicillin; Z88.8 Allergy status to other drugs, medicaments and biological substances
CPT/HCPCS: 36415; 80053; 81001; 82805; 82962; 84439; 84443; 85007; 85025; 87086; 93005; 93010; 96361; 96374; 99284; J1642; J7030; J1815

== ENCOUNTER 2019-08-12 00:47 | Emergency (ER) | payer MEDICAID ==
[2019-08-12] MEDS ORDERED: ONDANSETRON 4 MG/2 ML INJ IV ONE ×2 (00:56→04:29)
[2019-08-12] MEDS ORDERED: SODIUM CHLORIDE 0.9% 1000 ML 1,000 ML IV ONE ×2 (00:56→01:45)
[2019-08-12] MEDS ORDERED: INSULIN REGULAR, HUMAN 100 UNITS/1 ML IV STA (00:57)
--- NOTE | 2019-08-12 01:01 | Emergency Department Report ---
ED General Adult HPI - General Stated complaint: HIGH BLOOD GLUCOSE Time Seen by Provider: 08/12/19 00:55 Source: patient, EMS, old records reviewed Limitations: No Limitations - History of Present Illness Initial comments: Lilly is a 28-year-old male female with history of major depressive disorder, bipolar disorder, hypothyroidism, seizure disorder, gastroparesis, t insulin- dependent diabetes, Eden's disease chronic hypotension who presents to the emergency department via EMS for high blood sugar. She also has nausea. Blood sugar was greater than 500 en route according to food checker bedside. She takes 10 units of Tresiba in the morning. She is on a sliding scale throughout the day. She denies fever. She denies sore throat. She denies chest pain pressure or shortness of breath. She denies abdominal pain. She has a history of recurrent ED visits at least on average 1 visit/week. She has a port for venous access. -: Gradual, days(s) (1) Consistency: constant Improves with: none Worsens with: none Associated Symptoms: other (nausea) - Related Data Previous Rx's Medication Instructions Recorded Last Taken Type Hydrocortisone [Cortef TAB] 5 mg PO QPM #30 tablet 05/24/19 Unknown Rx Insulin Glargine [Lantus VIAL] 10 units SUB-Q QAM #60 units 05/24/19 06/05/19 Rx Acetaminophen [Acetaminophen TAB] 2 tab PO Q4H PRN #15 tablet 06/16/19 Unknown Rx Acetaminophen [Acetaminophen TAB] 650 mg PO Q4H PRN #15 tablet 07/16/19 Unknown Rx Fludrocortisone [Florinef] 0.1 mg PO QDAY #30 tablet 07/16/19 Unknown Rx HYDROcodone/APAP 5-325 [[place] 1 each PO Q4HR PRN #12 tablet 07/16/19 Unknown Rx 5-325 mg TAB] Levothyroxine [Synthroid] 150 mcg PO DAILY@0600 #30 tablet 07/16/19 Unknown Rx Lispro Insulin [HumaLOG] 1 dose SUB-Q ACHS PRN #1000 units 07/16/19 Unknown Rx OLANzapine [ZyPREXA] 2.5 mg PO QDAY #30 tablet 07/16/19 Unknown Rx Ondansetron [Zofran ODT TAB] 4 mg PO Q8HR PRN #20 tab.rapdis 07/16/19 Unknown Rx Sertraline [Zoloft] 25 mg PO QDAY #30 tablet 07/16/19 Unknown Rx levETIRAcetam [Keppra TAB] 500 mg PO BID #60 tablet 07/16/19 Unknown Rx Nitrofurantoin [place]/M-Cryst 100 mg PO Q12HR #16 capsule 08/08/19 Unknown Rx [Macrobid CAP] Allergies Allergy/AdvReac Type Severity Reaction Status Date / Time Penicillins Allergy Angioedema Verified 06/14/19 11:26 vortioxetine Allergy Unknown Verified 06/14/19 11:26 [From Trintellix] ziprasidone [From Geodon] Allergy Angioedema Verified 06/14/19 11:26 vancomycin AdvReac Itching Verified 06/14/19 11:26 ED Review of Systems ROS: Stated complaint: HIGH BLOOD GLUCOSE Other details as noted in HPI Comment: All other systems reviewed and negative Constitutional: denies: fever, malaise Respiratory: denies: cough Cardiovascular: denies: chest pain Gastrointestinal: nausea ED Past Medical Hx - Past Medical History Previous Medical History?: Yes Hx Hypertension: No Hx Heart Attack/AMI: No Hx Congestive Heart Failure: No Hx Diabetes: Yes (Type 1) Hx Deep Vein Thrombosis: No Hx Pulmonary Embolism: No Hx GERD: No Hx Liver Disease: No Hx Renal Disease: No Hx Sickle Cell Disease: No Hx Arthritis: No Hx Headaches / Migraines: No Hx Seizures: Yes Hx Kidney Stones: No Hx Asthma: No Hx COPD: No Hx Tuberculosis: No Hx Dementia: No Hx HIV: No Additional medical history: hypotension, hypothyroidism, Eden's disease, Depression, Celiac - Surgical History Past Surgical History?: Yes Hx Coronary Stent: No Hx Open Heart Surgery: No Hx Pacemaker: No Hx Internal Defibrillator: No Hx Cholecystectomy: Yes Hx Appendectomy: Yes Hx Breast Surgery: No Additional Surgical History: 4. port right chest wall - Social History Smoking Status: Never Smoker Substance Use Type: None - Medications Home Medications: Home Medications Medication Instructions Recorded Confirmed Last Taken Type Hydrocortisone [Cortef TAB] 5 mg PO QPM #30 tablet 05/24/19 07/13/19 Unknown Rx Insulin Glargine [Lantus VIAL] 10 units SUB-Q QAM #60 units 05/24/19 07/13/19 06/05/19 Rx Acetaminophen [Acetaminophen TAB] 2 tab PO Q4H PRN #15 tablet 06/16/19 07/13/19 Unknown Rx Acetaminophen [Acetaminophen TAB] 650 mg PO Q4H PRN #15 tablet 07/16/19 Unknown Rx Fludrocortisone [Florinef] 0.1 mg PO QDAY #30 tablet 07/16/19 Unknown Rx HYDROcodone/APAP 5-325 [[place] 1 each PO Q4HR PRN #12 tablet 07/16/19 Unknown Rx 5-325 mg TAB] Levothyroxine [Synthroid] 150 mcg PO DAILY@0600 #30 tablet 07/16/19 Unknown Rx Lispro Insulin [HumaLOG] 1 dose SUB-Q ACHS PRN #1000 units 07/16/19 Unknown Rx OLANzapine [ZyPREXA] 2.5 mg PO QDAY #30 tablet 07/16/19 Unknown Rx Ondansetron [Zofran ODT TAB] 4 mg PO Q8HR PRN #20 tab.rapdis 07/16/19 Unknown Rx Sertraline [Zoloft] 25 mg PO QDAY #30 tablet 07/16/19 Unknown Rx levETIRAcetam [Keppra TAB] 500 mg PO BID #60 tablet 07/16/19 Unknown Rx Nitrofurantoin [place]/M-Cryst 100 mg PO Q12HR #16 capsule 08/08/19 Unknown Rx [Macrobid CAP] ED Physical Exam - General General appearance: alert, in no apparent distress - Head Head exam: Present: atraumatic, normocephalic - Eye Eye exam: Present: normal appearance - ENT ENT exam: Present: mucous membranes moist - Neck Neck exam: Present: normal inspection, full ROM - Respiratory Respiratory exam: Present: normal lung sounds bilaterally. Absent: respiratory distress, wheezes, rales, rhonchi - Cardiovascular Cardiovascular Exam: Present: regular rate, normal rhythm, normal heart sounds. Absent: systolic murmur, diastolic murmur, rubs, gallop - GI/Abdominal GI/Abdominal exam: Present: soft, normal bowel sounds - Extremities Exam Extremities exam: Present: normal inspection - Neurological Exam Neurological exam: Present: alert, oriented X3 - Psychiatric Psychiatric exam: Present: normal mood, flat affect - Skin Skin exam: Present: warm, dry, intact, normal color. Absent: rash ED Course Vital Signs 08/12/19 00:59 Temperature 98.6 F Pulse Rate 76 Respiratory 17 Rate Blood Pressure 125/77 O2 Sat by Pulse 99 Oximetry ED Medical Decision Making - Lab Data Result diagrams: 08/12/19 01:24 08/12/19 01:24 - Medical Decision Making Lilly presents with acute hyperglycemia and pseudohyponatremia. Corrected sodium 139. No evidence of diabetic ketoacidosis. She was treated with IV fluid normal saline, and IV insulin. She appears well. No vomiting or pain. No fever. She has been normotensive here in the ED today. Repeat Accu-Chek 204 prior to discharge. She has prescription of Zofran at home for nausea vomiting. She explained that Reglan did not work for her gastroparesis. Discharged home. Critical care attestation.: If time is entered above; I have spent that time in minutes in the direct care of this critically ill patient, excluding procedure time. ED Disposition Clinical Impression: Acute hyperglycemia, Insulin dependent diabetes mellitus Disposition: DC-01 TO HOME OR SELFCARE Is pt being admited?: No Does the pt Need Aspirin: No Condition: Stable Additional Instructions: Please see your physician as soon as possible. Referrals: PRIMARY CARE, [Primary Care Provider] - 2-3 Days
[2019-08-12 01:35] LABS: Hematocrit 28.4 % (30.3-42.9); Hemoglobin 9.2 gm/dl (10.1-14.3); Mean Corpuscular HGB Conc 32 % (30-34); Mean Corpuscular Volume 85 fl (79-97); Platelet Count 214 K/mm3 (140-440); Red Blood Count 3.33 M/mm3 (3.65-5.03); Red Cell Distribution Width 16.2 % (13.2-15.2)
[2019-08-12] MEDS ORDERED: INSULIN REGULAR, HUMAN 100 UNITS/1 ML IV ONE (01:45)
[2019-08-12 01:55] LABS: Calcium 8.5 mg/dL (8.4-10.2)
[2019-08-12 03:00] LABS: Total Cells Counted 100
[2019-08-12 03:01] LABS: Hypochromasia 1+
[2019-08-12 03:02] LABS: Anisocytosis Few; Platelet Estimate Consistent w Auto; Schistocytes Rare
[2019-08-12] MEDS ORDERED: ONDANSETRON 4 MG/2 ML INJ ONE (04:31)
[2019-08-12 05:37] VITALS: BP 103/78
== END 2019-08-12 05:35 | disposition home or self-care (01) ==
LOC: ED 00:47
DX: E10.65 Type 1 diabetes mellitus with hyperglycemia (principal); F31.9 Bipolar disorder, unspecified; E03.9 Hypothyroidism, unspecified; Z86.69 Personal history of other diseases of the nervous system and sense organs; Z88.0 Allergy status to penicillin; Z88.8 Allergy status to other drugs, medicaments and biological substances; Z90.49 Acquired absence of other specified parts of digestive tract; Z98.890 Other specified postprocedural states; Z79.899 Other long term (current) drug therapy; Z79.4 Long term (current) use of insulin; Z88.1 Allergy status to other antibiotic agents
CPT/HCPCS: 36415; 80048; 82805; 82962; 85007; 85025; 96361; 96374; 96375; 96376; 99284; J2405; J7030; J1815

== ENCOUNTER 2019-08-22 22:25 | Emergency (ER) | payer MEDICAID ==
--- NOTE | 2019-08-22 22:55 | Emergency Department Report ---
ED General Adult HPI - General Chief complaint: Dizziness Stated complaint: DIZZINESS/NAUSEA Time Seen by Provider: 08/22/19 22:51 Source: patient, EMS ( EMS documentation not available at time of chart dictation ), RN notes reviewed, old records reviewed Mode of arrival: Wheelchair Limitations: No Limitations - History of Present Illness Initial comments: Patient is a 28-year-old female who is known to myself previously. Patient was admitted to the medical service at this hospital July 2019. 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 During her hospitalization last month, she was found to have worsening transaminitis, without corroborating GI symptoms. She had an ultrasound performed which showed a small liver with increased echogenicity suggesting possible hepatic steatosis and/or cirrhosis, small kidneys suggesting medical renal disease. Her coagulation parameters were unremarkable, indicative of preserved synthetic liver function, without evidence of liver failure. As per recommendation from gastroenterology, outpatient autoimmune serologies were pending, hepatotoxic agents were recommended to be avoided, patient is to follow-up in clinic upon discharge for further work-up, possible liver biopsy versus referral to wharf operator as an outpatient. Patient was also recently admitted to the medical service at this hospital, for hyperglycemia. Today, the patient presents to the ER with a complaint of painless generalized weakness, lightheadedness. It started earlier on yesterday afternoon while working. Denies physical pain. She felt nauseous yesterday morning, and vomited x1, nonbloody, nonbilious. There is no complaint of new or different chest pain, new or different shortness of breath, there were no irritative or obstructive urinary symptoms, and there is no focal extremity weakness and no numbness. The patient indicates that her lightheadedness is intermittent, does not radiate anywhere, and decreases with rest. -: Gradual Radiation: other Quality: other Consistency: other Improves with: other Worsens with: other Associated Symptoms: other - Related Data Previous Rx's Medication Instructions Recorded Last Taken Type Hydrocortisone [Cortef TAB] 5 mg PO QPM #30 tablet 05/24/19 Unknown Rx Insulin Glargine [Lantus VIAL] 10 units SUB-Q QAM #60 units 05/24/19 06/05/19 Rx Acetaminophen [Acetaminophen TAB] 2 tab PO Q4H PRN #15 tablet 06/16/19 Unknown Rx Acetaminophen [Acetaminophen TAB] 650 mg PO Q4H PRN #15 tablet 07/16/19 Unknown Rx Fludrocortisone [Florinef] 0.1 mg PO QDAY #30 tablet 07/16/19 Unknown Rx Levothyroxine [Synthroid] 150 mcg PO DAILY@0600 #30 tablet 07/16/19 Unknown Rx Lispro Insulin [HumaLOG] 1 dose SUB-Q ACHS PRN #1000 units 07/16/19 Unknown Rx OLANzapine [ZyPREXA] 2.5 mg PO QDAY #30 tablet 07/16/19 Unknown Rx Ondansetron [Zofran ODT TAB] 4 mg PO Q8HR PRN #20 tab.rapdis 07/16/19 Unknown Rx Sertraline [Zoloft] 25 mg PO QDAY #30 tablet 07/16/19 08/13/19 10:00 Rx 500 levETIRAcetam [Keppra TAB] 500 mg PO BID #60 tablet 07/16/19 Unknown Rx Nitrofurantoin [place]/M-Cryst 100 mg PO Q12HR #16 capsule 08/08/19 Unknown Rx [Macrobid CAP] Magnesium Oxide [Magnesium] 400 mg PO QDAY #30 capsule 08/23/19 Unknown Rx Allergies Allergy/AdvReac Type Severity Reaction Status Date / Time Penicillins Allergy Angioedema Verified 06/14/19 11:26 vortioxetine Allergy Unknown Verified 06/14/19 11:26 [From Trintellix] ziprasidone [From Geodon] Allergy Angioedema Verified 06/14/19 11:26 vancomycin AdvReac Itching Verified 06/14/19 11:26 ED Review of Systems ROS: Stated complaint: DIZZINESS/NAUSEA Other details as noted in HPI Constitutional: malaise Eyes: denies: eye discharge ENT: denies: congestion Respiratory: denies: wheezing Cardiovascular: denies: syncope Gastrointestinal: denies: nausea, vomiting, diarrhea Genitourinary: denies: dysuria Neurological: weakness Psychiatric: anxiety Hematological/Lymphatic: denies: easy bleeding ED Past Medical Hx - Past Medical History Previous Medical History?: Yes Hx Hypertension: No Hx Heart Attack/AMI: No Hx Congestive Heart Failure: No Hx Diabetes: Yes Hx Deep Vein Thrombosis: No Hx Pulmonary Embolism: No Hx GERD: No Hx Liver Disease: No Hx Renal Disease: Yes Hx Sickle Cell Disease: No Hx Arthritis: No Hx Headaches / Migraines: No Hx Seizures: Yes Hx Kidney Stones: No Hx Psychiatric Treatment: Yes (Bipolar) Hx Asthma: No Hx COPD: No Hx Tuberculosis: No Hx Dementia: No Hx HIV: No Additional medical history: hypotension, hypothyroidism, Teller's disease, De pression, Celiac - Surgical History Past Surgical History?: Yes Hx Coronary Stent: No Hx Open Heart Surgery: No Hx Pacemaker: No Hx Internal Defibrillator: No Hx Cholecystectomy: Yes Hx Appendectomy: Yes Hx Breast Surgery: No Additional Surgical History: 4. port right chest wall - Social History Smoking Status: Never Smoker Substance Use Type: None - Medications Home Medications: Home Medications Medication Instructions Recorded Confirmed Last Taken Type Hydrocortisone [Cortef TAB] 5 mg PO QPM #30 tablet 05/24/19 08/14/19 Unknown Rx Insulin Glargine [Lantus VIAL] 10 units SUB-Q QAM #60 units 05/24/19 08/14/19 06/05/19 Rx Acetaminophen [Acetaminophen TAB] 2 tab PO Q4H PRN #15 tablet 06/16/19 08/14/19 Unknown Rx Acetaminophen [Acetaminophen TAB] 650 mg PO Q4H PRN #15 tablet 07/16/19 08/14/19 Unknown Rx Fludrocortisone [Florinef] 0.1 mg PO QDAY #30 tablet 07/16/19 08/14/19 Unknown Rx Levothyroxine [Synthroid] 150 mcg PO DAILY@0600 #30 tablet 07/16/19 08/14/19 Unknown Rx Lispro Insulin [HumaLOG] 1 dose SUB-Q ACHS PRN #1000 units 07/16/19 08/14/19 Unknown Rx OLANzapine [ZyPREXA] 2.5 mg PO QDAY #30 tablet 07/16/19 08/14/19 Unknown Rx Ondansetron [Zofran ODT TAB] 4 mg PO Q8HR PRN #20 tab.rapdis 07/16/19 08/14/19 Unknown Rx Sertraline [Zoloft] 25 mg PO QDAY #30 tablet 07/16/19 08/13/19 10:00 Rx 500 levETIRAcetam [Keppra TAB] 500 mg PO BID #60 tablet 07/16/19 08/14/19 Unknown Rx Nitrofurantoin [place]/M-Cryst 100 mg PO Q12HR #16 capsule 08/08/19 08/14/19 Unknown Rx [Macrobid CAP] Magnesium Oxide [Magnesium] 400 mg PO QDAY #30 capsule 08/23/19 Unknown Rx ED Physical Exam - General Limitations: No Limitations General appearance: alert, in no apparent distress - Head Head exam: Present: atraumatic, normocephalic - Eye Eye exam: Present: normal appearance, PERRL, EOMI, other (Visual acuity is intact to finger counting and color perception at a close distance). Absent: nystagmus - ENT ENT exam: Present: normal exam, normal orophraynx, mucous membranes moist, normal external ear exam - Neck Neck exam: Present: normal inspection, full ROM. Absent: tenderness, meningismus - Respiratory Respiratory exam: Present: normal lung sounds bilaterally. Absent: respiratory distress - Cardiovascular Cardiovascular Exam: Present: regular rate, normal rhythm, normal heart sounds. Absent: bradycardia, tachycardia, irregular rhythm, systolic murmur, diastolic murmur, rubs, gallop - GI/Abdominal GI/Abdominal exam: Present: soft, normal bowel sounds. Absent: distended, tenderness, guarding, rebound, rigid, pulsatile mass - Extremities Exam Extremities exam: Present: normal inspection, full ROM, other (2+ pulses noted in the bilateral upper and lower extremities. There is no palpable cord. negative Homans sign. Muscular compartments are soft. The pelvis is stable.). Absent: pedal edema, calf tenderness - Back Exam Back exam: Present: normal inspection, full ROM. Absent: tenderness, CVA tenderness (R), CVA tenderness (L), paraspinal tenderness, vertebral tenderness - Neurological Exam Neurological exam: Present: alert, oriented X3, other (There is no facial droop. The tongue is midline. Extraocular movements are intact bilaterally. There is 5 out of 5 strength in bilateral upper and lower extremities. Sensation is intact to light touch bilateral upper and lower extremities. There is no past- pointing. There is no pronator drift. There is normal [id number]. ). Absent: motor sensory deficit - Psychiatric Psychiatric exam: Present: normal mood - Skin Skin exam: Present: warm, dry, intact, normal color. Absent: rash ED Course Vital Signs 08/22/19 08/22/1920 22:30 22:44 22:45 Temperature 97.7 F Pulse Rate 93 H 82 81 Respiratory 18 14 12 Rate Blood Pressure 72/48 91/55 O2 Sat by Pulse 100 Oximetry 08/22/19 08/22/19 08/22/19 23:00 23:15 23:30 Temperature Pulse Rate 80 76 77 Respiratory 15 10 L 15 Rate Blood Pressure 91/55 87/57 87/57 O2 Sat by Pulse Oximetry 08/22/19 08/23/19 08/23/19 23:45 00:00 00:15 Temperature Pulse Rate 75 73 70 Respiratory 15 15 13 Rate Blood Pressure 85/53 91/57 98/58 O2 Sat by Pulse 97 100 99 Oximetry 08/23/19 08/23/19 08/23/19 00:30 00:45 01:01 Temperature Pulse Rate 73 71 73 Respiratory 16 13 12 Rate Blood Pressure 88/61 99/68 103/70 O2 Sat by Pulse 99 95 Oximetry 08/23/19 08/23/19 08/23/19 01:15 01:30 01:45 Temperature Pulse Rate 74 75 69 Respiratory 13 13 12 Rate Blood Pressure 108/76 111/81 116/83 O2 Sat by Pulse 100 96 Oximetry 08/23/19 02:00 Temperature Pulse Rate 71 Respiratory 11 L Rate Blood Pressure 97/72 O2 Sat by Pulse 98 Oximetry - Reevaluation(s) Reevaluation #1: 08/23/19 00:54 Differential diagnosis, including but not limited to: Orthostasis, dehydration, vagal event Assessment and plan: 28-year-old female who is not currently tachypneic, tachycardic, or hypoxic, perc negative, with recurrent complaint of lightheadedness and generalized weakness. Her examination and vital signs today appear to be similar to prior examination and vital signs. She is nontoxic appearing, with a GCS of 15. Screening laboratory studies are reviewed and appreciated. There is no right upper quadrant pain and tenderness, her transaminitis appears to be acute on chronic. Her EKG is reviewed and appreciated, and appears to be grossly unchanged from her prior EKG. She does not have significant hyperglycemia today. Glucose of 57 is reviewed and appreciated, she will be given dextrose containing fluids, every hour fingersticks, and we will feed the patient as well. In addition, her magnesium will be repleted. She will be given IV fluids and supportive care. Once blood pressure is improved, anticipate discharge with outpatient follow-up. 08/23/19 00:57 Reevaluation #2: 08/23/19 02:14 Patient able to eat without difficulty. Blood sugar is improved. Blood pressure is improved. She is watching movies on her computer, and is in no acute distress. Her magnesium has been addressed. The patient is a frequent utilizer of this emergency department, and her exam today appears to be consistent with prior multiple examinations. ED Medical Decision Making - Lab Data Result diagrams: 08/22/19 23:23 Vital Signs 08/22/19 08/22/19 08/22/19 22:30 22:44 22:45 Temperature 97.7 F Pulse Rate 93 H 82 81 Respiratory 18 14 12 Rate Blood Pressure 72/48 91/55 O2 Sat by Pulse 100 Oximetry 08/22/19 08/22/19 08/22/19 23:00 23:15 23:30 Temperature Pulse Rate 80 76 77 Respiratory 15 10 L 15 Rate Blood Pressure 91/55 87/57 87/57 O2 Sat by Pulse Oximetry 08/22/19 08/23/19 08/23/19 23:45 00:00 00:15 Temperature Pulse Rate 75 73 70 Respiratory 15 15 13 Rate Blood Pressure 85/53 91/57 98/58 O2 Sat by Pulse 97 100 99 Oximetry 08/23/19 00:30 Temperature Pulse Rate 73 Respiratory 16 Rate Blood Pressure 88/61 O2 Sat by Pulse Oximetry Lab Results 08/22/19 08/22/19 08/22/19 Range/Units 23:23 23:23 23:23 PT 12.5 (12.2-14.9) Sec. INR 0.92 (0.87-1.13) VBG pH 7.382 (7.320-7.420) Sodium 133 L (137-145) mmol/L Potassium 3.5 L (3.6-5.0) mmol/L Chloride 95.0 L (98-107) mmol/L Carbon Dioxide 26 (22-30) mmol/L Anion Gap 16 mmol/L BUN 14 (7-17) mg/dL Creatinine 1.3 H (0.7-1.2) mg/dL Estimated GFR 49 ml/min BUN/Creatinine Ratio 11 % Glucose 57 L (65-100) mg/dL Calcium 8.4 (8.4-10.2) mg/dL Magnesium 1.60 L (1.7-2.3) mg/dL Total Bilirubin 0.20 (0.1-1.2) mg/dL AST 1320 H (5-40) units/L ALT 331 H (7-56) units/L Alkaline Phosphatase 198 H (35-129) units/L Total Creatine Kinase 41 (30-135) units/L Total Protein 5.5 L (6.3-8.2) g/dL Albumin 3.7 L (3.9-5) g/dL Albumin/Globulin Ratio 2.1 % - EKG Data -: EKG Interpreted by Hi EKG shows normal: sinus rhythm Rate: normal - EKG Data When compared to previous EKG there are: no significant change 08/23/19 00:58 Sinus rhythm, 80 bpm, normal axis, QTC 503 ms, there is low voltage, and poor R wave progression. There is no endorsement of chest pain. The EKG is abnormal. It is unchanged from prior. Not consistent with STEMI Critical care attestation.: If time is entered above; I have spent that time in minutes in the direct care of this critically ill patient, excluding procedure time. ED Disposition Clinical Impression: Orthostasis, Transaminitis, Hypomagnesemia Disposition: DC-01 TO HOME OR SELFCARE Is pt being admited?: No Does the pt Need Aspirin: No Condition: Stable Additional Instructions: Continue current outpatient medications. Take the magnesium supplementation as directed. Advance diet as tolerated, make certain to adhere to a diabetic family and appropriate diet. Please make certain to consume 2-4 cups of water per day. Please return to the emergency room right away with new, worsened or different symptoms, or symptoms not present on the initial emergency room evaluation. Laboratory studies demonstrated nonspecific elevation in liver function tests, acute on chronic. 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 Avoid consumption of acetaminophen. Avoid consumption of alcohol. Referrals: [facility] [Provider Group] - 7-10 days
[2019-08-22] MEDS ORDERED: ONDANSETRON 4 MG/2 ML INJ IV ONE (23:27)
[2019-08-22] MEDS ORDERED: SODIUM CHLORIDE 0.9% 1000 ML 1,000 ML IV ONE (23:27)
[2019-08-22 23:44] LABS: INR 0.92 (0.87-1.13)
[2019-08-22 23:51] LABS: Albumin 3.7 g/dL (3.9-5); Calcium 8.4 mg/dL (8.4-10.2)
[2019-08-23] MEDS ORDERED: SODIUM CHLORIDE 0.9% 1000 ML 1,000 ML IV ONE (00:50)
[2019-08-23] MEDS ORDERED: DEXTROSE 50% IN WATER (25GM) 50 ML VIAL IV ONE (00:56)
[2019-08-23] MEDS ORDERED: DEXTROSE 50% IN WATER (25GM) 50 ML VIAL IV PRN (00:56)
[2019-08-23] MEDS ORDERED: MAGNESIUM SULFATE 2 GM/50 ML BAG IV ONE (00:56)
[2019-08-23] MEDS ORDERED: DEXTROSE 50% IN WATER (25GM) 50 ML SYRINGE IV ONE (02:00)
[2019-08-23 03:07] VITALS: BP 103/82
== END 2019-08-23 03:07 | disposition home or self-care (01) ==
LOC: ED 22:25
DX: E83.42 Hypomagnesemia (principal); R42 Dizziness and giddiness; R74.0 Nonspecific elevation of levels of transaminase and lactic acid dehydrogenase [LDH]; R56.9 Unspecified convulsions; I95.1 Orthostatic hypotension; E11.9 Type 2 diabetes mellitus without complications; F31.9 Bipolar disorder, unspecified; Z98.890 Other specified postprocedural states; Z90.49 Acquired absence of other specified parts of digestive tract; Z79.4 Long term (current) use of insulin; Z79.899 Other long term (current) drug therapy; Z88.0 Allergy status to penicillin; Z88.8 Allergy status to other drugs, medicaments and biological substances
CPT/HCPCS: 36415; 80053; 82550; 82805; 82962; 83735; 85610; 93005; 93010; 96361; 96365; 96375; 99284; J1642; J2405; J3475; J7030

== ENCOUNTER 2019-08-31 00:42 | Emergency (ER) | payer MEDICAID ==
[2019-08-31] MEDS ORDERED: METOCLOPRAMIDE 10 MG/2 ML INJ IV ONE (01:54)
[2019-08-31] MEDS ORDERED: LIDOCAINE (4%) 40 MG/ML TOPICAL SOLN 50 ML BOTTLE TP ONE (01:54)
[2019-08-31] MEDS ORDERED: SODIUM CHLORIDE 0.9% 1000 ML 1,000 ML IV ONE (01:54)
[2019-08-31] MEDS ORDERED: diphenhydrAMINE 50 MG/ML VIAL IV ONE (01:54)
[2019-08-31] MEDS ORDERED: MAGNESIUM SULFATE 2 GM/50 ML BAG IV ONE (01:54)
--- NOTE | 2019-08-31 01:55 | Emergency Department Report ---
ED General Adult HPI - General Chief complaint: Weakness Stated complaint: DIZZY, WEAK, VOMITING Time Seen by Provider: 08/31/19 01:30 Source: patient, EMS ( EMS documentation not available at time of chart dictation ), RN notes reviewed, old records reviewed Mode of arrival: Ambulatory Limitations: No Limitations - History of Present Illness Initial comments: The patient is a 28-year-old female. I have evaluated her multiple times in the past. Today, the patient presents to the ER today with a complaint of headache, nausea and vomiting. She endorses a history of chronic migraines. She presents to the ER with a few episodes of nonbloody, nonbilious emesis, present for 2 to 3 days, and headache, frontal and bitemporal, present for a few hours to a day. The headache is not described as sudden or thunderclap in nature. The headache is not described as the most intense headache of her life. The patient also describes lightheadedness and dizziness, which she describes as a sensation of room spinning. There is no tinnitus. There is no loss of auditory acuity. There is no focal extremity weakness and/or numbness. The patient denies additional physical pain. She denies irritative and/or obstructive urinary symptoms. -: Gradual, days(s) Location: head Quality: aching Consistency: intermittent Improves with: medication, rest Worsens with: movement - Related Data Previous Rx's Medication Instructions Recorded Last Taken Type Hydrocortisone [Cortef TAB] 5 mg PO QPM #30 tablet 05/24/19 Unknown Rx Insulin Glargine [Lantus VIAL] 10 units SUB-Q QAM #60 units 05/24/19 06/05/19 Rx Acetaminophen [Acetaminophen TAB] 2 tab PO Q4H PRN #15 tablet 06/16/19 Unknown Rx Acetaminophen [Acetaminophen TAB] 650 mg PO Q4H PRN #15 tablet 07/16/19 Unknown Rx Fludrocortisone [Florinef] 0.1 mg PO QDAY #30 tablet 07/16/19 Unknown Rx Levothyroxine [Synthroid] 150 mcg PO DAILY@0600 #30 tablet 07/16/19 Unknown Rx Lispro Insulin [HumaLOG] 1 dose SUB-Q ACHS PRN #1000 units 07/16/19 Unknown Rx OLANzapine [ZyPREXA] 2.5 mg PO QDAY #30 tablet 07/16/19 Unknown Rx Ondansetron [Zofran ODT TAB] 4 mg PO Q8HR PRN #20 tab.rapdis 07/16/19 Unknown Rx Sertraline [Zoloft] 25 mg PO QDAY #30 tablet 07/16/19 08/13/19 10:00 Rx 500 levETIRAcetam [Keppra TAB] 500 mg PO BID #60 tablet 07/16/19 Unknown Rx Nitrofurantoin [place]/M-Cryst 100 mg PO Q12HR #16 capsule 08/08/19 Unknown Rx [Macrobid CAP] Magnesium Oxide [Magnesium] 400 mg PO QDAY #30 capsule 08/23/19 Unknown Rx Metoclopramide [Reglan] 10 mg PO QID PRN #15 tablet 08/31/19 Unknown Rx Allergies Allergy/AdvReac Type Severity Reaction Status Date / Time Penicillins Allergy Angioedema Verified 06/14/19 11:26 vortioxetine Allergy Unknown Verified 06/14/19 11:26 [From Trintellix] ziprasidone [From Geodon] Allergy Angioedema Verified 06/14/19 11:26 vancomycin AdvReac Itching Verified 06/14/19 11:26 ED Review of Systems ROS: Stated complaint: DIZZY, WEAK, VOMITING Other details as noted in HPI Constitutional: malaise. denies: fever Eyes: denies: eye discharge, vision change ENT: denies: congestion Respiratory: denies: wheezing Cardiovascular: denies: syncope Gastrointestinal: denies: abdominal pain, nausea, vomiting, diarrhea Genitourinary: denies: dysuria Musculoskeletal: as per HPI Skin: as per HPI Neurological: headache, weakness Psychiatric: as per HPI Hematological/Lymphatic: as per HPI ED Past Medical Hx - Past Medical History Previous Medical History?: Yes Hx Hypertension: No Hx Heart Attack/AMI: No Hx Congestive Heart Failure: No Hx Diabetes: Yes Hx Deep Vein Thrombosis: No Hx Pulmonary Embolism: No Hx GERD: No Hx Liver Disease: No Hx Renal Disease: Yes Hx Sickle Cell Disease: No Hx Arthritis: No Hx Headaches / Migraines: No Hx Seizures: Yes Hx Kidney Stones: No Hx Psychiatric Treatment: Yes (Bipolar) Hx Asthma: No Hx COPD: No Hx Tuberculosis: No Hx Dementia: No Hx HIV: No Additional medical history: hypotension, hypothyroidism, Hockley's disease, Depression, Celiac - Surgical History Past Surgical History?: Yes Hx Coronary Stent: No Hx Open Heart Surgery: No Hx Pacemaker: No Hx Internal Defibrillator: No Hx Cholecystectomy: Yes Hx Appendectomy: Yes Hx Breast Surgery: No Additional Surgical History: 4. port right chest wall - Social History Smoking Status: Never Smoker - Medications Home Medications: Home Medications Medication Instructions Recorded Confirmed Last Taken Type Hydrocortisone [Cortef TAB] 5 mg PO QPM #30 tablet 05/24/19 08/14/19 Unknown Rx Insulin Glargine [Lantus VIAL] 10 units SUB-Q QAM #60 units 05/24/19 08/14/19 06/05/19 Rx Acetaminophen [Acetaminophen TAB] 2 tab PO Q4H PRN #15 tablet 06/16/19 08/14/19 Unknown Rx Acetaminophen [Acetaminophen TAB] 650 mg PO Q4H PRN #15 tablet 07/16/19 08/14/19 Unknown Rx Fludrocortisone [Florinef] 0.1 mg PO QDAY #30 tablet 07/16/19 08/14/19 Unknown Rx Levothyroxine [Synthroid] 150 mcg PO DAILY@0600 #30 tablet 07/16/19 08/14/19 Unknown Rx Lispro Insulin [HumaLOG] 1 dose SUB-Q ACHS PRN #1000 units 07/16/19 08/14/19 Unknown Rx OLANzapine [ZyPREXA] 2.5 mg PO QDAY #30 tablet 07/16/19 08/14/19 Unknown Rx Ondansetron [Zofran ODT TAB] 4 mg PO Q8HR PRN #20 tab.rapdis 07/16/19 08/14/19 Unknown Rx Sertraline [Zoloft] 25 mg PO QDAY #30 tablet 07/16/19 08/13/19 10:00 Rx 500 levETIRAcetam [Keppra TAB] 500 mg PO BID #60 tablet 07/16/19 08/14/19 Unknown Rx Nitrofurantoin [place]/M-Cryst 100 mg PO Q12HR #16 capsule 08/08/19 08/14/19 Unknown Rx [Macrobid CAP] Magnesium Oxide [Magnesium] 400 mg PO QDAY #30 capsule 08/23/19 Unknown Rx Metoclopramide [Reglan] 10 mg PO QID PRN #15 tablet 08/31/19 Unknown Rx ED Physical Exam - General Limitations: No Limitations General appearance: alert, in no apparent distress - Head Head exam: Present: atraumatic, normocephalic - Eye Eye exam: Present: normal appearance, PERRL, EOMI, other (Visual acuity intact to finger counting, color perception, reading at a close distance). Absent: nystagmus - ENT ENT exam: Present: normal exam, normal orophraynx, mucous membranes moist, normal external ear exam - Neck Neck exam: Present: normal inspection, full ROM. Absent: tenderness, meningismus - Respiratory Respiratory exam: Present: normal lung sounds bilaterally. Absent: respiratory distress - Cardiovascular Cardiovascular Exam: Present: regular rate, normal rhythm, normal heart sounds. Absent: bradycardia, tachycardia, irregular rhythm, systolic murmur, diastolic murmur, rubs, gallop - GI/Abdominal GI/Abdominal exam: Present: soft. Absent: distended, tenderness, guarding, rebound, rigid, pulsatile mass - Extremities Exam Extremities exam: Present: normal inspection, full ROM, other (2+ pulses noted in the bilateral upper and lower extremities. There is no palpable cord. negative Homans sign. Muscular compartments are soft. The pelvis is stable.). Absent: pedal edema, calf tenderness - Back Exam Back exam: Present: normal inspection, full ROM. Absent: tenderness, CVA tenderness (R), CVA tenderness (L), paraspinal tenderness, vertebral tenderness - Neurological Exam Neurological exam: Present: alert, other (There is no facial droop. The tongue is midline. Extraocular movements are intact bilaterally. There is 5 out of 5 strength in bilateral upper and lower extremities. Sensation is intact to light touch bilateral upper and lower extremities. There is no past-pointing. There is no pronator drift. ) - Psychiatric Psychiatric exam: Present: anxious - Skin Skin exam: Present: warm, dry, intact, normal color. Absent: rash ED Course Vital Signs 08/31/19 08/31/19 08/31/19 00:47 03:02 03:35 Temperature 97.2 F L 97.4 F L Pulse Rate 86 16 L 73 Respiratory 18 83 H 16 Rate Blood Pressure 93/69 Blood Pressure 93/69 101/69 [Left] O2 Sat by Pulse 100 100 100 Oximetry - Reevaluation(s) Reevaluation #1: 08/31/19 03:09 Differential diagnosis, including but not limited to: Orthostasis, dehydration, peripheral vertigo, migraine headache, tension headache, cluster headache, dehydration Assessment and plan: 28-year-old female presenting with typical constellation of symptoms, including nausea, vomiting, weakness, dizziness, found to be mildly hypotensive. She is otherwise afebrile with reassuring vital signs. I have evaluated this patient multiple times in the past. Her examination today appears to be similar to prior examinations. She appears to be quite comfortable and she is watching videos on her computer. We will treat her symptoms, obtain basic laboratory studies, give IV fluids, and reassess. Anticipate discharge once initial diagnostics have resulted, and once her blood pressure is improved. Please note that this patient is a chronic utilizer of the emergency department. Reevaluation #2: 08/31/19 03:50 Reassessed. No active vomiting. Blood pressure in the 100s. Sleeping comfortably and in no acute distress. Laboratory studies reviewed and appreciated. Hyperglycemia chronic. Renal insufficiency chronic. Transaminitis improving. Patient suitable to follow-up with an outpatient primary care doctor, does not require further ER department work-up/evaluation. She also does not meet criteria for hospitalization at this time ED Medical Decision Making - Lab Data Result diagrams: 08/31/19 02:56 Vital Signs 08/31/19 08/31/19 00:47 03:02 Temperature 97.2 F L 97.4 F L Pulse Rate 86 83 Respiratory 18 83 H Rate Blood Pressure 93/69 Blood Pressure 93/69 [Left] O2 Sat by Pulse 100 100 Oximetry - EKG Data -: EKG Interpreted by [facility] EKG shows normal: sinus rhythm Rate: normal - EKG Data 08/31/19 03:10 Sinus rhythm, 79 bpm, normal axis, the QTC is 533 ms, there is low voltage, MI interval 180 ms, the EKG is abnormal, it is not consistent with ST elevation myocardial infarction. Critical care attestation.: If time is entered above; I have spent that time in minutes in the direct care of this critically ill patient, excluding procedure time. ED Disposition Clinical Impression: History of headache, History of nausea and vomiting Disposition: - TO HOME OR SELFCARE Is pt being admited?: No Does the pt Need Aspirin: No Condition: Stable Additional Instructions: Continue outpatient medications. Avoid consumption of Motrin, ibuprofen, Naprosyn, Aleve. Patient may take bydc-ane-tokizan Tylenol as needed for pain. She may also take the prescribed nausea/headache medicine as directed. Follow- up with the primary care doctor within the next 2 weeks. Return to the emergency room right away with new, worsened or different symptoms not present on the initial emergency room evaluation. Referrals: ZAINA LONDONO MD [Primary Care Provider] - 3-5 Days
[2019-08-31 03:25] LABS: INR 1.02 (0.87-1.13)
[2019-08-31 03:26] LABS: Partial Thromboplastin Time 56.9 Sec. (24.2-36.6)
[2019-08-31 03:36] VITALS: BP 101/69
[2019-08-31 03:36] LABS: Albumin 3.8 g/dL (3.9-5); Calcium 8.4 mg/dL (8.4-10.2)
== END 2019-08-31 04:38 | disposition home or self-care (01) ==
LOC: ED 00:42
DX: R11.2 Nausea with vomiting, unspecified (principal); R51 Headache; R42 Dizziness and giddiness; R53.1 Weakness; E11.9 Type 2 diabetes mellitus without complications; F31.9 Bipolar disorder, unspecified; E03.9 Hypothyroidism, unspecified; Z86.69 Personal history of other diseases of the nervous system and sense organs; Z90.49 Acquired absence of other specified parts of digestive tract; Z88.0 Allergy status to penicillin; Z88.8 Allergy status to other drugs, medicaments and biological substances; Z79.899 Other long term (current) drug therapy; Z98.890 Other specified postprocedural states
CPT/HCPCS: 36415; 80053; 82550; 82962; 83735; 84702; 85610; 85730; 93005; 93010; 96365; 96375; 99284; J1200; J1642; J2765; J3475; J7030

== ENCOUNTER 2019-09-16 00:42 | Inpatient (IN) | payer MEDICAID ==
--- NOTE | 2019-09-16 02:25 | Emergency Department Report ---
ED Abdominal Pain HPI - General Chief Complaint: Hyperglycemia Stated Complaint: HYPERGLYCEMIA Time Seen by Provider: 09/16/19 02:01 Source: patient, EMS Mode of arrival: Stretcher Limitations: No Limitations - History of Present Illness Initial Comments: Patient is a 28-year-old female that presents emergency room with complaints of abdominal pain, nausea, vomiting. Patient also complains of weakness. Patient states her symptoms started 3 days ago. Patient states she has sensitive diabetes. Patient states her blood sugar has been running high. Patient states she is been compliant with her medications. Patient states that her abdominal pain and nausea vomiting are worsening. Patient denies fever and chills. Patient denies blood in her vomitus. Patient denies chest pain. Patient denies recent travel outside [facility]. Patient denies any respiratory symptoms. Patient denies cough. Patient denies shortness of breath. Patient denies coming in contact with anybody ill or sick contacts. Patient denies any contact with people who have been in contact with the novel coronavirus. Patient denies any travel recently. Patient denies coming in contact with any new people. MD Complaint: abdominal pain -: Sudden Location: diffuse Radiation: none Migration to: no migration Severity: severe Severity scale (0 -10): 10 Quality: stabbing Consistency: constant Improves With: rest Worsens With: vomiting, movement Associated Symptoms: nausea, vomiting, anorexia. denies: diarrhea, fever, chills, constipation, dysuria, hematemesis, hematochezia, melena, hematuria, syncope - Related Data LMP (females 10-50): last week Previous Rx's Medication Instructions Recorded Last Taken Type Hydrocortisone [Cortef TAB] 5 mg PO QPM #30 tablet 05/24/19 Unknown Rx Insulin Glargine [Lantus VIAL] 10 units SUB-Q QAM #60 units 05/24/19 06/05/19 Rx Acetaminophen [Acetaminophen TAB] 2 tab PO Q4H PRN #15 tablet 06/16/19 Unknown Rx Acetaminophen [Acetaminophen TAB] 650 mg PO Q4H PRN #15 tablet 07/16/19 Unknown Rx Fludrocortisone [Florinef] 0.1 mg PO QDAY #30 tablet 07/16/19 Unknown Rx Levothyroxine [Synthroid] 150 mcg PO DAILY@0600 #30 tablet 07/16/19 Unknown Rx Lispro Insulin [HumaLOG] 1 dose SUB-Q ACHS PRN #1000 units 07/16/19 Unknown Rx OLANzapine [ZyPREXA] 2.5 mg PO QDAY #30 tablet 07/16/19 Unknown Rx Ondansetron [Zofran ODT TAB] 4 mg PO Q8HR PRN #20 tab.rapdis 07/16/19 Unknown Rx Sertraline [Zoloft] 25 mg PO QDAY #30 tablet 07/16/19 08/13/19 10:00 Rx 500 levETIRAcetam [Keppra TAB] 500 mg PO BID #60 tablet 07/16/19 Unknown Rx Nitrofurantoin [place]/M-Cryst 100 mg PO Q12HR #16 capsule 08/08/19 Unknown Rx [Macrobid CAP] Magnesium Oxide [Magnesium] 400 mg PO QDAY #30 capsule 08/23/19 Unknown Rx Metoclopramide [Reglan] 10 mg PO QID PRN #15 tablet 08/31/19 Unknown Rx Allergies Allergy/AdvReac Type Severity Reaction Status Date / Time Penicillins Allergy Angioedema Verified 06/14/19 11:26 vortioxetine Allergy Unknown Verified 06/14/19 11:26 [From Trintellix] ziprasidone [From Geodon] Allergy Angioedema Verified 06/14/19 11:26 vancomycin AdvReac Itching Verified 06/14/19 11:26 ED Review of Systems ROS: Stated complaint: HYPERGLYCEMIA Other details as noted in HPI Constitutional: weakness. denies: chills, fever Eyes: denies: eye pain, eye discharge, vision change ENT: denies: ear pain, throat pain Respiratory: denies: cough, shortness of breath, wheezing Cardiovascular: denies: chest pain, palpitations Endocrine: no symptoms reported Gastrointestinal: abdominal pain, nausea, vomiting. denies: diarrhea Genitourinary: denies: urgency, dysuria, discharge Musculoskeletal: denies: back pain, joint swelling, arthralgia Skin: denies: rash, lesions Neurological: weakness. denies: headache, paresthesias Psychiatric: denies: anxiety, depression Hematological/Lymphatic: denies: easy bleeding, easy bruising ED Past Medical Hx - Past Medical History Previous Medical History?: Yes Hx Hypertension: No Hx Heart Attack/AMI: No Hx Congestive Heart Failure: No Hx Diabetes: Yes Hx Deep Vein Thrombosis: No Hx Pulmonary Embolism: No Hx GERD: No Hx Liver Disease: No Hx Renal Disease: Yes Hx Sickle Cell Disease: No Hx Arthritis: No Hx Headaches / Migraines: No Hx Seizures: Yes Hx Kidney Stones: No Hx Psychiatric Treatment: Yes (Bipolar) Hx Asthma: No Hx COPD: No Hx Tuberculosis: No Hx Dementia: No Hx HIV: No Additional medical history: hypotension, hypothyroidism, Maricao's disease, Depression, Celiac - Surgical History Past Surgical History?: Yes Hx Coronary Stent: No Hx Open Heart Surgery: No Hx Pacemaker: No Hx Internal Defibrillator: No Hx Cholecystectomy: Yes Hx Appendectomy: Yes Hx Breast Surgery: No Additional Surgical History: 4. port right chest wall - Family History Family history: no significant - Social History Smoking Status: Never Smoker Substance Use Type: None - Medications Home Medications: Home Medications Medication Instructions Recorded Confirmed Last Taken Type Hydrocortisone [Cortef TAB] 5 mg PO QPM #30 tablet 05/24/19 08/14/19 Unknown Rx Insulin Glargine [Lantus VIAL] 10 units SUB-Q QAM #60 units 05/24/19 08/14/19 06/05/19 Rx Acetaminophen [Acetaminophen TAB] 2 tab PO Q4H PRN #15 tablet 06/16/19 08/14/19 Unknown Rx Acetaminophen [Acetaminophen TAB] 650 mg PO Q4H PRN #15 tablet 07/16/19 08/14/19 Unknown Rx Fludrocortisone [Florinef] 0.1 mg PO QDAY #30 tablet 07/16/19 08/14/19 Unknown Rx Levothyroxine [Synthroid] 150 mcg PO DAILY@0600 #30 tablet 07/16/19 08/14/19 Unknown Rx Lispro Insulin [HumaLOG] 1 dose SUB-Q ACHS PRN #1000 units 07/16/19 08/14/19 Unknown Rx OLANzapine [ZyPREXA] 2.5 mg PO QDAY #30 tablet 07/16/19 08/14/19 Unknown Rx Ondansetron [Zofran ODT TAB] 4 mg PO Q8HR PRN #20 tab.rapdis 07/16/19 08/14/19 Unknown Rx Sertraline [Zoloft] 25 mg PO QDAY #30 tablet 07/16/19 08/13/19 10:00 Rx 500 levETIRAcetam [Keppra TAB] 500 mg PO BID #60 tablet 07/16/19 08/14/19 Unknown Rx Nitrofurantoin [place]/M-Cryst 100 mg PO Q12HR #16 capsule 08/08/19 08/14/19 Unknown Rx [Macrobid CAP] Magnesium Oxide [Magnesium] 400 mg PO QDAY #30 capsule 08/23/19 Unknown Rx Metoclopramide [Reglan] 10 mg PO QID PRN #15 tablet 08/31/19 Unknown Rx ED Physical Exam - General Limitations: No Limitations General appearance: alert, in no apparent distress - Head Head exam: Present: atraumatic, normocephalic - Eye Eye exam: Present: normal appearance - ENT ENT exam: Present: mucous membranes moist - Neck Neck exam: Present: normal inspection - Respiratory Respiratory exam: Present: normal lung sounds bilaterally. Absent: respiratory distress - Cardiovascular Cardiovascular Exam: Present: regular rate, normal rhythm. Absent: systolic murmur, diastolic murmur, rubs, gallop - GI/Abdominal GI/Abdominal exam: Present: soft, tenderness (Generalized tenderness to pa lpation.), normal bowel sounds - Extremities Exam Extremities exam: Present: normal inspection - Back Exam Back exam: Present: normal inspection - Neurological Exam Neurological exam: Present: alert, oriented X3 - Psychiatric Psychiatric exam: Present: normal affect, normal mood - Skin Skin exam: Present: warm, dry, intact, normal color. Absent: rash ED Course Vital Signs 09/16/19 09/16/19 09/16/19 01:39 02:45 03:00 Temperature 98.0 F Pulse Rate 71 68 69 Respiratory 18 12 12 Rate Blood Pressure 78/58 75/52 O2 Sat by Pulse 100 Oximetry 09/16/19 09/16/19 09/16/19 03:16 03:30 03:46 Temperature Pulse Rate 70 70 67 Respiratory 10 L 9 L 7 L Rate Blood Pressure 82/49 82/49 83/53 O2 Sat by Pulse Oximetry 09/16/19 09/16/19 09/16/19 04:00 04:16 04:30 Temperature Pulse Rate 68 69 66 Respiratory 9 L 9 L 8 L Rate Blood Pressure 83/53 81/53 81/53 O2 Sat by Pulse 96 95 Oximetry - Reevaluation(s) Reevaluation #1: Patient states her pain is improving. Patient states she is nauseated but no vomiting. 09/16/19 02:34 Reevaluation #2: Patient sugar finally resulted. Patient's sugar significant elevated. Patient will be 12 units of insulin. 09/16/19 05:10 Reevaluation #3: I discussed all results with patient. I discussed plan of care with patient. Patient agrees with plan of care and admission. Patient to be admitted to the hospitalist service. 09/16/19 06:21 Reevaluation #4: Due to patient's sugar, Patient was placed on insulin drip and given fluids. 09/16/19 06:27 - Consultations Consultation #1: Hospitalist consulted for admission. Hospitalist to admit patient. Bridge orders placed. 09/16/19 06:21 ED Medical Decision Making - Lab Data Result diagrams: 09/16/19 02:54 09/16/19 02:54 - Radiology Data Radiology results: report reviewed CT ABDOMEN AND PELVIS WITHOUT CONTRAST INDICATION / CLINICAL INFORMATION: Pt complains of abd pain with nausea and weakness.. TECHNIQUE: Axial CT images were obtained through the abdomen and pelvis without IV contrast. All CT scans at this location are performed using CT dose reduction for [employer] by means of automated exposure control. COMPARISON: 12/31/2018 FINDINGS: LOWER CHEST: Minimum parenchymal changes right lower lobe LIVER: No significant abnormality. GALLBLADDER: Previous cholecystectomy BILE DUCTS: No significant abnormality. PANCREAS: No significant abnormality. SPLEEN: No significant abnormality. ADRENALS: No significant abnormality. RIGHT KIDNEY and URETER: No significant abnormality. LEFT KIDNEY and URETER: No significant abnormality. STOMACH and SMALL BOWEL: No significant abnormality. COLON: Moderate amounts of feces is present colon APPENDIX: Not identified PERITONEUM: No free fluid. No free air. No fluid collection. LYMPH NODES: No significant adenopathy. AORTA and ARTERIES: No significant abnormality. IVC and VEINS: No significant abnormality. URINARY BLADDER: No significant abnormality. REPRODUCTIVE ORGANS: No significant abnormality. ADDITIONAL FINDINGS: None. SKELETAL SYSTEM: Moderate compression T12 vertebral body unchanged from previous exam IMPRESSION: 1. No significant abnormality. Please see comments - Medical Decision Making Patient is a 28-year-old female that presents emergency room with complaints of weakness, nausea, vomiting, abdominal pain and elevated blood sugar. Patient is a well-known diabetic to this ER. Patient had a blood sugar register high at home and with EMS. Patient blood sugar here is 801. Patient given IV push insulin and then placed on a insulin drip per the hospitalist request. Patient given fluids and Zofran. Patient's abdominal pain resolved with fluids and Zofran. Patient's CT scan negative for acute findings. Patient's labs unremarkable except for elevated blood sugar and some chemistry abnormalities. Patient also found to be anemic. Patient admitted to the hospitalist service. - Differential Diagnosis HHS, DKA, hyperglycemia, abdominal pain, gastroparesis, nausea vomiting Critical Care Time: Yes Critical care time in (mins) excluding proc time.: 45 Critical care attestation.: If time is entered above; I have spent that time in minutes in the direct care of this critically ill patient, excluding procedure time. Critical Care Time: 45 minutes ED Disposition Clinical Impression: Renal insufficiency, Hyponatremia syndrome, HHNC (hyperglycemic hyperosmolar nonketotic coma) Abdominal pain Qualifiers: Abdominal location: generalized Qualified Code(s): R10.84 - Generalized abdominal pain Hypotension Qualifiers: Hypotension type: unspecified hypotension type Qualified Code(s): I95.9 - Hypotension, unspecified Vomiting Qualifiers: Vomiting type: unspecified Vomiting Intractability: non-intractable Nausea presence: with nausea Qualified Code(s): R11.2 - Nausea with vomiting, unspecified Anemia Qualifiers: Anemia type: unspecified type Qualified Code(s): D64.9 - Anemia, unspecified Disposition: DC-09 OP ADMIT IP TO THIS HOSP Is pt being admited?: Yes Does the pt Need Aspirin: No Condition: Critical Time of Disposition: 06:20
[2019-09-16] MEDS ORDERED: SODIUM CHLORIDE 0.9% 1000 ML 2,000 ML ONE ×2 (02:50→13:06)
[2019-09-16 03:59] LABS: Hematocrit 27.3 % (30.3-42.9); Hemoglobin 8.7 gm/dl (10.1-14.3); Mean Corpuscular HGB Conc 32 % (30-34); Mean Corpuscular Volume 85 fl (79-97); Platelet Count 151 K/mm3 (140-440); Red Blood Count 3.23 M/mm3 (3.65-5.03); Red Cell Distribution Width 15.4 % (13.2-15.2)
[2019-09-16 04:08] LABS: INR 1.01 (0.87-1.13)
[2019-09-16 04:14] LABS: Albumin 3.4 g/dL (3.9-5); Calcium 7.9 mg/dL (8.4-10.2)
[2019-09-16] MEDS ORDERED: SODIUM CHLORIDE 0.9% 1000 ML 1,000 ML IV ONE ×3 (04:33→12:00)
[2019-09-16 04:41] LABS: Total Cells Counted 100
[2019-09-16 04:42] LABS: Ovalocytes Rare; Platelet Estimate Consistent w Auto; Schistocytes Rare
[2019-09-16] MEDS ORDERED: INSULIN REGULAR, HUMAN 100 UNITS/1 ML IV ONE (05:09)
--- NOTE | 2019-09-16 06:16 | Cat Scan Report ---
CT ABDOMEN AND PELVIS WITHOUT CONTRAST INDICATION / CLINICAL INFORMATION: Pt complains of abd pain with nausea and weakness.. TECHNIQUE: Axial CT images were obtained through the abdomen and pelvis without IV contrast. All CT scans at [facility] location are performed using CT dose reduction for [place] by means of automated exposure control. COMPARISON: 12/31/2018 FINDINGS: LOWER CHEST: Minimum parenchymal changes right lower lobe LIVER: No significant abnormality. GALLBLADDER: Previous cholecystectomy BILE DUCTS: No significant abnormality. PANCREAS: No significant abnormality. SPLEEN: No significant abnormality. ADRENALS: No significant abnormality. RIGHT KIDNEY and URETER: No significant abnormality. LEFT KIDNEY and URETER: No significant abnormality. STOMACH and SMALL BOWEL: No significant abnormality. COLON: Moderate amounts of feces is present colon APPENDIX: Not identified PERITONEUM: No free fluid. No free air. No fluid collection. LYMPH NODES: No significant adenopathy. AORTA and ARTERIES: No significant abnormality. IVC and VEINS: No significant abnormality. URINARY BLADDER: No significant abnormality. REPRODUCTIVE ORGANS: No significant abnormality. ADDITIONAL FINDINGS: None. SKELETAL SYSTEM: Moderate compression T12 vertebral body unchanged from previous exam IMPRESSION: 1. No significant abnormality. Please see comments Signer Name: Paulino Mccarthy MD Signed: 09/16/2019 6:12 AM Workstation Name: [id number]
[2019-09-16 06:37] LABS: HCG Qualitative,Urine Negative (Negative)
[2019-09-16] MEDS ORDERED: INSULIN REGULAR, HUMAN 100 UNITS in SODIUM CHLORIDE 0.9% 99 ML IV SCH (07:00)
[2019-09-16 07:59] LABS: Calcium 7.2 mg/dL (8.4-10.2)
[2019-09-16] MEDS ORDERED: POTASSIUM CHLORIDE ER 10 MEQ TAB PO ONE (09:46)
[2019-09-16] MEDS: ONDANSETRON 4 MG/2 ML INJ IV ONE ×2 (10:19→13:44)
[2019-09-16] MEDS ORDERED: INSULIN LISPRO 100 UNIT/ML SUB-Q PRN (11:06)
[2019-09-16] MEDS ORDERED: ACETAMINOPHEN 325 MG TAB PO PRN ×2 (11:06)
[2019-09-16] MEDS ORDERED: METOCLOPRAMIDE 10 MG TAB PO PRN (11:06)
[2019-09-16] MEDS ORDERED: ONDANSETRON 4 MG ODT TAB PO PRN (11:06)
--- NOTE | 2019-09-16 11:14 | History and Physical Report ---
History of Present Illness Date of examination: 09/16/19 Date of admission: 09/16/19 06:30 Chief complaint: abdominal pain History of present illness: Patient is a 28-year-old female with history of insulin-dependent diabetes, Dante disease and chronic hypertension presents to the emergency room with complaints of abdominal pain, nausea, vomiting for 3 days. Patient also complains of generalized weakness. Patient does have history of recurrent admission for similar reason in the past. Her blood glucose in the ER was greater than 800. Also noted to have low blood pressure. CT abdomen and pelvis showed no acute findings. She was placed on IV fluid hydration, given subcu insulin. Blood glucose responded slightly. She was then called for admission for further evaluation and management. She describes her as abdominal pain located epigastric region, aggravated by vomiting, feels better when she is not eating anything, pain is burning in nature.. Since she been in the ER she did not have any episode of vomiting but continued to complain some nausea. Patient will be admitted for further evaluation and management. Past History Past Medical History: diabetes (poorly-controlled insulin-dependent), hypothyr oidism (Dante's disease), other (Hypotension) Past Surgical History: appendectomy, cholecystectomy, (4), Other (right chest port) Social history: lives with family Family history: no significant family history Review of System: Constitutional: no fever, no chills, no weight loss Ears, eyes, nose, mouth and throat: no nasal congestion, no nasal discharge, no sinus pressure, no vision change, no red eye. Neck: No neck pain or rigidity. Cardiovascular: No chest pain, no orthopnea, no palpitations, no leg swelling Respiratory: No shortness of breath, no cough, no congestion, no wheezing Gastrointestinal: + abdominal pain, + nausea, + vomiting Genitourinary : no dysuria, no hematuria Musculoskeletal: no joint swelling or muscle ache Integumentary: no rash, no pruritis Neurological: no parathesias, no numbness, no tingling Endocrine: no cold or heat intolerance, no polyuria or polydipsia Hematologic/Lymphatic: no easy bruising, no easy bleeding, no gland swelling Allergic/Immunologic: no urticaria, no angioedema. Medications and Allergies Allergies Allergy/AdvReac Type Severity Reaction Status Date / Time Penicillins Allergy Angioedema Verified 06/14/19 11:26 vortioxetine Allergy Unknown Verified 06/14/19 11:26 [From Trintellix] ziprasidone [From Geodon] Allergy Angioedema Verified 06/14/19 11:26 vancomycin AdvReac Itching Verified 06/14/19 11:26 Home Medications Medication Instructions Recorded Confirmed Last Taken Type Hydrocortisone [Cortef TAB] 5 mg PO QPM #30 tablet 05/24/19 09/16/19 Unknown Rx Insulin Glargine [Lantus VIAL] 10 units SUB-Q QAM #60 units 05/24/19 09/16/19 06/05/19 Rx Acetaminophen [Acetaminophen TAB] 2 tab PO Q4H PRN #15 tablet 06/16/19 09/16/19 Unknown Rx Acetaminophen [Acetaminophen TAB] 650 mg PO Q4H PRN #15 tablet 07/16/19 09/16/19 Unknown Rx Fludrocortisone [Florinef] 0.1 mg PO QDAY #30 tablet 07/16/19 09/16/19 Unknown Rx Levothyroxine [Synthroid] 150 mcg PO DAILY@0600 #30 tablet 07/16/19 09/16/19 Unknown Rx Lispro Insulin [HumaLOG] 1 dose SUB-Q ACHS PRN #1000 units 07/16/19 09/16/19 Unknown Rx OLANzapine [ZyPREXA] 2.5 mg PO QDAY #30 tablet 07/16/19 09/16/19 Unknown Rx Ondansetron [Zofran ODT TAB] 4 mg PO Q8HR PRN #20 tab.rapdis 07/16/19 09/16/19 Unknown Rx Sertraline [Zoloft] 25 mg PO QDAY #30 tablet 07/16/19 09/16/19 08/13/19 10:00 Rx 500 levETIRAcetam [Keppra TAB] 500 mg PO BID #60 tablet 07/16/19 09/16/19 Unknown Rx Magnesium Oxide [Magnesium] 400 mg PO QDAY #30 capsule 08/23/19 09/16/19 Unknown Rx Metoclopramide [Reglan] 10 mg PO QID PRN #15 tablet 08/31/19 09/16/19 Unknown Rx Active Meds: Active Medications Acetaminophen (Tylenol) 650 mg PO Q4H PRN PRN Reason: Pain MILD(1-3)/Fever >100.5/STEWARD Dextrose (D50w (25gm) Syringe) 50 ml IV Q30MIN PRN; Protocol PRN Reason: Hypoglycemia Fludrocortisone Acetate (Florinef) 0.1 mg PO QDAY MARINO Hydrocortisone Acetate (Cortef) 5 mg PO QPM FOR[facility], [facility]1983 Insulin Human Regular 100 (units/ Sodium Chloride) 100 mls @ 1 mls/hr IV TITR MARINO; Protocol Last Admin: 09/16/19 07:47 Dose: 1 units/hr, 1 mls/hr Documented by: Insulin Glargine (Lantus) 10 units SUB-Q QAM MARINO Insulin Human Lispro (Humalog) unit SUB-Q ACHS PRN PRN Reason: Hyperglycemia Levetiracetam (Keppra) 500 mg PO BID FOR[facility], [facility]1983 Levothyroxine Sodium (Synthroid) 150 mcg PO DAILY@0600 FOR[facility], [facility]1983 Metoclopramide HCl (Reglan) 10 mg PO QID PRN PRN Reason: Headache Miscellaneous Medication (Magnesium Oxide [Magnesium]) 400 mg PO QDAY FOR[facility], [facility]1983 Olanzapine (Zyprexa) 2.5 mg PO QDAY FOR[facility], [facility]1983 Ondansetron HCl (Zofran Odt) 4 mg PO Q8HR PRN PRN Reason: Vomiting Sertraline HCl (Zoloft) 25 mg PO QDAY FOR[facility], [facility]1983 Exam - Physical Exam Narrative exam: GENERAL: well-developed and well-nourished young female lying on bed appeared to be in mild discomfort. HEENT: Normocephalic. Atraumatic. No conjunctival congestion or icterus. Patient has moist mucous membranes. NECK: Supple. Trachea midline. CHEST/LUNGS: Clear to auscultated bilaterally, breathing nonlabored. No wheezes crackles or rhonchi. HEART/CARDIOVASCULAR: Regular in rate and rhythm. S1 and S2 positive. ABDOMEN: Abdomen is soft, nontender. Patient has normal bowel sounds. SKIN: There is no rash. Warm and dry. NEURO: No focal motor deficit. Follows command. MUSCULOSKELETAL: No joint effusion or tenderness. EXTRIMITY: No edema, no cyanosis or clubbing. PSYCH: Cooperative. - Constitutional Vitals: Temp Pulse Resp BP Pulse Ox 98.0 F 65 15 98/66 100 09/16/19 01:39 09/16/19 10:23 09/16/19 10:23 09/16/19 10:23 09/16/19 10:23 Results - Labs CBC & Chem 7: 09/16/19 02:54 09/19/19 04:00 Labs: Abnormal lab results 09/16/19 09/16/19 09/16/19 Range/Units 02:54 02:54 07:31 RBC 3.23 L (3.65-5.03) M/mm3 Hgb 8.7 L (10.1-14.3) gm/dl Hct 27.3 L (30.3-42.9) % MCH 27 L (28-32) pg RDW 15.4 H (13.2-15.2) % Seg Neuts % (Manual) 34.0 L (40.0-70.0) % Lymphocytes % (Manual) 58.0 H (13.4-35.0) % Basophils % (Manual) 2.0 H (0.0-1.8) % Seg Neutrophils # Man 1.7 L (1.8-7.7) K/mm3 Sodium 123 L (137-145) mmol/L Potassium (3.6-5.0) mmol/L Chloride 85.2 L (98-107) mmol/L Carbon Dioxide (22-30) mmol/L Creatinine 1.7 H (0.7-1.2) mg/dL Glucose 801 H* (65-100) mg/dL POC Glucose 406 H (70-105) Calcium 7.9 L (8.4-10.2) mg/dL Phosphorus (2.5-4.5) mg/dL Magnesium (1.7-2.3) mg/dL AST 357 H (5-40) units/L ALT 120 H (7-56) units/L Total Protein 5.4 L (6.3-8.2) g/dL Albumin 3.4 L (3.9-5) g/dL 09/16/19 09/16/19 Range/Units 07:36 07:36 RBC (3.65-5.03) M/mm3 Hgb (10.1-14.3) gm/dl Hct (30.3-42.9) % MCH (28-32) pg RDW (13.2-15.2) % Seg Neuts % (Manual) (40.0-70.0) % Lymphocytes % (Manual) (13.4-35.0) % Basophils % (Manual) (0.0-1.8) % Seg Neutrophils # Man (1.8-7.7) K/mm3 Sodium 134 L D (137-145) mmol/L Potassium 2.9 L* D (3.6-5.0) mmol/L Chloride (98-107) mmol/L Carbon Dioxide 21 L (22-30) mmol/L Creatinine 1.5 H (0.7-1.2) mg/dL Glucose 411 H (65-100) mg/dL POC Glucose (70-105) Calcium 7.2 L (8.4-10.2) mg/dL Phosphorus 1.80 L (2.5-4.5) mg/dL Magnesium 1.40 L (1.7-2.3) mg/dL AST (5-40) units/L ALT (7-56) units/L Total Protein (6.3-8.2) g/dL Albumin (3.9-5) g/dL Assessment and Plan Diabetic hyperosmolar non-ketotic state -BG on admission 801 - cont iv fluid, treat BG aggressively -Continue to monitor clinically Insulin-dependent diabetes with hyperglycemia -Poorly controlled -Hgb A1c 11.9 (04/13/19) -BG on admission 801 -Initial Anion gap 15 -Urine study pending -Every 4 hours POC BG monitoring -SSI coverage prn -Continue to monitor labs Hyponatremia -Na on admission 123 -Slowly correct Na with IVF -Continue to monitor replete prn Hypotension -History of hypotension -Continue to monitor BP, iv fluid Hypokalemia, severe - K 2.9, cont to replete, check Mg BRANDEE -Hx CKD2 -Cr on admission 1.7 (trending up from 1.2 on 04/18/19) -Receiving IVF -Avoid nephrotoxin agents -Renal dose all meds History of seizures; Do not drive - Seizure precautions, continue antiepileptic medication History of [place]'s disease: cont home meds DVT PPX -on Heparin
[2019-09-16] MEDS ORDERED: POTASSIUM CHLORIDE ER 20 MEQ TAB PO ONE (13:07)
[2019-09-16] MEDS ORDERED: ONDANSETRON 4 MG/2 ML INJ ONE (13:18)
[2019-09-16] MEDS ORDERED: DEXTROSE 50% IN WATER (25GM) 50 ML SYRINGE IV ONE (13:34)
[2019-09-16] MEDS: HYDROCORTISONE 10 MG TAB PO SCH (13:41)
[2019-09-16] MEDS: SODIUM CHLORIDE 0.9% 1000 ML 1,000 ML IV SCH ×2 (13:42→20:22)
[2019-09-16] MEDS: DEXTROSE 50% IN WATER (25GM) 50 ML SYRINGE IV PRN (13:44)
[2019-09-16 14:40] LABS: Calcium 7.5 mg/dL (8.4-10.2)
[2019-09-16] MEDS: INSULIN GLARGINE 100 UNITS/ML SUB-Q SCH (15:00)
[2019-09-16] MEDS: INSULIN REGULAR, HUMAN 100 UNITS/1 ML SUB-Q SCH ×2 (20:00→22:14)
[2019-09-16] MEDS: levETIRAcetam 500 MG TAB PO SCH (22:13)
[2019-09-17 01:20] LABS: Calcium 7.4 mg/dL (8.4-10.2)
[2019-09-17] MEDS: DEXTROSE 50% IN WATER (25GM) 50 ML SYRINGE IV PRN (04:12)
[2019-09-17] MEDS: SODIUM CHLORIDE 0.9% 1000 ML 1,000 ML IV SCH ×3 (04:44→16:22)
[2019-09-17] MEDS: LEVOTHYROXINE 150 MCG TAB PO SCH (05:18)
[2019-09-17] MEDS ORDERED: SODIUM CHLORIDE 0.9% 500 ML 500 ML IV ONE (05:52)
[2019-09-17] MEDS ORDERED: SODIUM CHLORIDE 0.9% 500 ML 250 ML IV ONE (06:30)
[2019-09-17] MEDS ORDERED: MAGNESIUM SULFATE 2 GM/50 ML BAG IV NR (09:05)
[2019-09-17 09:17] LABS: Calcium 6.8 mg/dL (8.4-10.2)
--- NOTE | 2019-09-17 09:48 | XRay Report ---
CHEST 1 VIEW INDICATION / CLINICAL INFORMATION: cough. COMPARISON: 08/14/2019 FINDINGS: SUPPORT DEVICES: Port-A-Cath appears unchanged HEART / MEDIASTINUM: No significant abnormality. LUNGS / PLEURA: No significant pulmonary or pleural abnormality.. No pneumothorax. ADDITIONAL FINDINGS: No significant additional findings. IMPRESSION: 1. No acute findings. Signer Name: Luis Vincent MD Signed: 09/17/2019 9:44 AM Workstation Name: [id number]
[2019-09-17] MEDS: INSULIN REGULAR, HUMAN 100 UNITS/1 ML SUB-Q SCH ×4 (09:49→22:23)
[2019-09-17] MEDS: MAGNESIUM OXIDE 400 MG TAB PO SCH (09:56)
[2019-09-17] MEDS: K-PHOS NEUTRAL 250 MG TAB PO SCH ×4 (09:56→22:24)
[2019-09-17] MEDS: levETIRAcetam 500 MG TAB PO SCH ×2 (09:56→22:24)
[2019-09-17] MEDS: SERTRALINE 25 MG TAB PO SCH (09:57)
[2019-09-17] MEDS: FLUDROCORTISONE 0.1 MG TAB PO SCH (09:57)
[2019-09-17] MEDS: INSULIN GLARGINE 100 UNITS/ML SUB-Q SCH ×2 (09:57→17:22)
[2019-09-17] MEDS: MIDODRINE 5 MG TAB PO SCH ×2 (13:44→17:22)
[2019-09-17] MEDS: HYDROCORTISONE 10 MG TAB PO SCH (13:44)
--- NOTE | 2019-09-17 15:14 | Progress Note ---
Assessment and Plan 28-year-old female with history of uncontrolled insulin-dependent diabetes, CKD2, seizure disorder, hypothyroidism, Dante's disease who presents to [facility] ED with complaints of abdominal pain, hyperglycemia, for the past 2 days. Diabetic hyperosmolar non-ketotic state -BG on admission 801 - cont iv fluid, treat BG aggressively Insulin-dependent diabetes with hyperglycemia -Poorly controlled -Hgb A1c 11.9 (04/13/19) -BG on admission 801 -Initial Anion gap 15 -Continue long-acting and sliding scale insulin coverage Nausea vomiting -Due to gastroparesis, will start on Reglan and Protonix Hyponatremia -Na on admission 123 -Slowly correct Na with IVF -Continue to monitor replete prn Hypotension -History of hypotension -Continue to monitor BP, iv fluid -Start on midodrine Hypokalemia, severe - K was 2.9, cont to replete, Hypomagnesemia/hypophosphatemia -Continue to replete BRANDEE, likely vasomotor nephropathy, improved -Hx CKD2 -Cr was on admission 1.7 (trending up from 1.2 on 04/18/19) -Receiving IVF -Avoid nephrotoxin agents -Renal dose all meds History of seizures; Do not drive - Seizure precautions, continue antiepileptic medication History of Dante's disease: cont home meds DVT PPX -on Heparin Disposition: Possible DC tomorrow if blood glucose remains stable and electrolytes normalized Physical exam: GENERAL: well-developed and well-nourished young white female lying on bed appeared to be in mild discomfort. HEENT: Normocephalic. Atraumatic. No conjunctival congestion or icterus. Patient has moist mucous membranes. NECK: Supple. Trachea midline. CHEST/LUNGS: Clear to auscultated bilaterally, breathing nonlabored. No wheezes crackles or rhonchi. HEART/CARDIOVASCULAR: Regular in rate and rhythm. S1 and S2 positive. ABDOMEN: Abdomen is soft, nontender. Patient has normal bowel sounds. SKIN: There is no rash. Warm and dry. NEURO: No focal motor deficit. Follows command. MUSCULOSKELETAL: No joint effusion or tenderness. EXTRIMITY: No edema, no cyanosis or clubbing. PSYCH: Cooperative. Subjective Date of service: 09/17/19 Interval history: Patient seen and examined. Medical records and medication list reviewed. No acute event overnight noted by the RN. Patient denies any chest pain or difficulty breathing. Continue to complains of nausea and unable to tolerate diet Discussed plan of care at bedside with patient. Objective - Constitutional Vitals: Vital Signs - 12hr 09/17/19 09/17/19 09/17/19 05:36 05:46 06:50 Temperature 97.3 F L Pulse Rate 57 L 56 L 59 L Respiratory 14 18 Rate Blood Pressure 59/30 Blood Pressure 55/27 72/42 [Left] O2 Sat by Pulse 96 100 Oximetry 09/17/19 09/17/19 09/17/19 06:52 09:49 12:37 Temperature 98.1 F Pulse Rate 51 L 66 Respiratory 20 14 Rate Blood Pressure 99/66 99/70 Blood Pressure 76/50 [Left] O2 Sat by Pulse 100 100 Oximetry - Labs CBC & Chem 7: 09/16/19 02:54 09/19/19 04:00 Labs: Abnormal lab results 09/16/19 09/16/19 09/16/19 Range/Units 14:05 16:46 21:50 Sodium (137-145) mmol/L Potassium (3.6-5.0) mmol/L Carbon Dioxide (22-30) mmol/L Creatinine (0.7-1.2) mg/dL Glucose (65-100) mg/dL POC Glucose 157 H 107 H 269 H (70-105) Calcium (8.4-10.2) mg/dL 09/17/19 09/17/19 09/17/19 Range/Units 00:15 04:20 04:53 Sodium 135 L (137-145) mmol/L Potassium (3.6-5.0) mmol/L Carbon Dioxide (22-30) mmol/L Creatinine 1.4 H (0.7-1.2) mg/dL Glucose 154 H (65-100) mg/dL POC Glucose < 40 L 164 H (70-105) Calcium 7.4 L (8.4-10.2) mg/dL 09/17/19 09/17/19 09/17/19 Range/Units 06:31 06:40 06:40 Sodium 134 L (137-145) mmol/L Potassium 3.3 L (3.6-5.0) mmol/L Carbon Dioxide 20 L (22-30) mmol/L Creatinine 1.3 H (0.7-1.2) mg/dL Glucose 132 H 132 H (65-100) mg/dL POC Glucose 167 H (70-105) Calcium 6.8 L (8.4-10.2) mg/dL 09/17/19 Range/Units 08:08 Sodium (137-145) mmol/L Potassium (3.6-5.0) mmol/L Carbon Dioxide (22-30) mmol/L Creatinine (0.7-1.2) mg/dL Glucose (65-100) mg/dL POC Glucose 121 H (70-105) Calcium (8.4-10.2) mg/dL
[2019-09-18] MEDS: SODIUM CHLORIDE 0.9% 1000 ML 1,000 ML IV SCH ×3 (00:36→18:36)
[2019-09-18 06:35] LABS: Alanine Aminotransferase 55 units/L (7-56); Albumin 2.5 g/dL (3.9-5); BUN/Creatinine Ratio 6; Blood Urea Nitrogen 7 mg/dL (7-17); Calcium 6.8 mg/dL (8.4-10.2); Hemolysis Index 3
[2019-09-18] MEDS: LEVOTHYROXINE 150 MCG TAB PO SCH (10:11)
[2019-09-18] MEDS: INSULIN REGULAR, HUMAN 100 UNITS/1 ML SUB-Q SCH ×4 (10:11→22:31)
[2019-09-18] MEDS: K-PHOS NEUTRAL 250 MG TAB PO SCH ×4 (10:13→22:26)
[2019-09-18] MEDS: SERTRALINE 25 MG TAB PO SCH (10:13)
[2019-09-18] MEDS: MIDODRINE 5 MG TAB PO SCH ×3 (10:13→18:35)
[2019-09-18] MEDS: FLUDROCORTISONE 0.1 MG TAB PO SCH (10:13)
[2019-09-18] MEDS: INSULIN GLARGINE 100 UNITS/ML SUB-Q SCH (10:13)
[2019-09-18] MEDS: levETIRAcetam 500 MG TAB PO SCH ×2 (10:13→22:27)
[2019-09-18] MEDS: MAGNESIUM OXIDE 400 MG TAB PO SCH (10:13)
[2019-09-18] MEDS: POTASSIUM CHLORIDE ER 20 MEQ TAB PO SCH (13:21)
[2019-09-18] MEDS: HYDROCORTISONE 10 MG TAB PO SCH (13:21)
--- NOTE | 2019-09-18 13:56 | Progress Note ---
Assessment and Plan 28-year-old female with history of uncontrolled insulin-dependent diabetes, CKD2, seizure disorder, hypothyroidism, Dante's disease who presents to [facility] ED with complaints of abdominal pain, hyperglycemia, for the past 2 days. Diabetic hyperosmolar non-ketotic state -BG on admission 801 - cont iv fluid, treat BG aggressively Insulin-dependent diabetes with hyperglycemia -Poorly controlled -Hgb A1c 11.9 (04/13/19) -BG on admission 801 -Continue sliding scale insulin coverage -Hold long-acting insulin to prevent hypoglycemic episodes Hypoglycemia -Glucose was 39 this morning, has history of very labile blood glucose -We will hold long-acting insulin Nausea vomiting -Due to gastroparesis, continue on Reglan and Protonix Hyponatremia -Na on admission 123 -Slowly correct Na with IVF -Continue to monitor replete prn Hypotension -History of hypotension -Continue to monitor BP, iv fluid -Start on midodrine Hypokalemia, severe - K was 2.9, cont to replete, Hypomagnesemia/hypophosphatemia -Continue to replete BRANDEE, likely vasomotor nephropathy, improved -Hx CKD2 -Cr was on admission 1.7 (trending up from 1.2 on 04/18/19) -Receiving IVF -Avoid nephrotoxin agents -Renal dose all meds History of seizures; Do not drive - Seizure precautions, continue antiepileptic medication History of [place]'s disease: cont home meds DVT PPX -on Heparin Disposition: Discharge hold today because a.m. blood glucose was 39. Possible DC tomorrow if blood glucose remains stable and electrolytes normalized Physical exam: GENERAL: well-developed and well-nourished young white female lying on bed appeared to be in mild discomfort. HEENT: Normocephalic. Atraumatic. No conjunctival congestion or icterus. Patient has moist mucous membranes. NECK: Supple. Trachea midline. CHEST/LUNGS: Clear to auscultated bilaterally, breathing nonlabored. No wheezes crackles or rhonchi. HEART/CARDIOVASCULAR: Regular in rate and rhythm. S1 and S2 positive. ABDOMEN: Abdomen is soft, nontender. Patient has normal bowel sounds. SKIN: There is no rash. Warm and dry. NEURO: No focal motor deficit. Follows command. MUSCULOSKELETAL: No joint effusion or tenderness. EXTRIMITY: No edema, no cyanosis or clubbing. PSYCH: Cooperative. Subjective Date of service: 09/18/19 Interval history: Patient seen and examined. Medical records and medication list reviewed. Blood glucose was 39 this morning. Continue to complains of nausea and unable to tolerate diet Discussed plan of care at bedside with patient. Objective - Constitutional Vitals: Vital Signs - 12hr 09/18/19 09/18/19 05:20 11:44 Temperature 98.7 F 98.3 F Pulse Rate 55 L 64 Respiratory 16 20 Rate Blood Pressure 76/45 89/62 O2 Sat by Pulse 99 99 Oximetry - Labs CBC & Chem 7: 09/16/19 02:54 09/19/19 04:00 Labs: Abnormal lab results 09/17/19 09/17/19 09/18/19 Range/Units 16:20 22:09 06:00 Potassium 3.2 L (3.6-5.0) mmol/L Chloride 114.1 H (98-107) mmol/L Carbon Dioxide 19 L (22-30) mmol/L Glucose 39 L* (65-100) mg/dL POC Glucose 297 H 366 H (70-105) Calcium 6.8 L (8.4-10.2) mg/dL AST 136 H (5-40) units/L Total Protein 4.2 L D (6.3-8.2) g/dL Albumin 2.5 L (3.9-5) g/dL 09/18/19 09/18/19 09/18/19 Range/Units 07:30 08:52 11:49 Potassium (3.6-5.0) mmol/L Chloride (98-107) mmol/L Carbon Dioxide (22-30) mmol/L Glucose (65-100) mg/dL POC Glucose 51 L 160 H 163 H (70-105) Calcium (8.4-10.2) mg/dL AST (5-40) units/L Total Protein (6.3-8.2) g/dL Albumin (3.9-5) g/dL
[2019-09-19] MEDS: SODIUM CHLORIDE 0.9% 1000 ML 1,000 ML IV SCH ×2 (02:22→10:12)
[2019-09-19] MEDS: LEVOTHYROXINE 150 MCG TAB PO SCH (05:50)
[2019-09-19] MEDS: INSULIN REGULAR, HUMAN 100 UNITS/1 ML SUB-Q SCH ×3 (10:12→18:58)
[2019-09-19] MEDS: FLUDROCORTISONE 0.1 MG TAB PO SCH (10:13)
[2019-09-19] MEDS: levETIRAcetam 500 MG TAB PO SCH (10:13)
[2019-09-19] MEDS: POTASSIUM CHLORIDE ER 20 MEQ TAB PO SCH (10:13)
[2019-09-19] MEDS: K-PHOS NEUTRAL 250 MG TAB PO SCH ×3 (10:13→18:50)
[2019-09-19] MEDS: MAGNESIUM OXIDE 400 MG TAB PO SCH (10:13)
[2019-09-19] MEDS: SERTRALINE 25 MG TAB PO SCH (10:13)
[2019-09-19] MEDS: MIDODRINE 5 MG TAB PO SCH ×3 (10:13→18:45)
[2019-09-19 11:35] VITALS: BP 109/75
[2019-09-19 14:23] LABS: Calcium 6.9 mg/dL (8.4-10.2)
--- NOTE | 2019-09-19 15:25 | Discharge Summary ---
Providers - Providers Date of Admission: 09/16/19 06:30 Date of discharge: 09/19/19 Attending physician: OTF BARNES Primary care physician: OUTREACH MANAGER Hospitalization Condition: Critical Pertinent studies: CT abdomen pelvis, chest x-ray Hospital course: 28-year-old female with history of uncontrolled insulin-dependent diabetes, CKD2, seizure disorder, hypothyroidism, Dante's disease who presents to [facility] ED with complaints of abdominal pain, hyperglycemia, for the past 2 days. On presentation blood glucose was greater than 800, given iv fluid bolus in the ER, admitted to medicine floor. Patient was started on long-acting and sliding scale of insulin. Patient was continued on iv fluid, consistent carb diet. Adjusted long acting insulin dose to better improve BG level, and to prevent hypoglycemia counselled for dietary and insulin regimen compliance. Patient was then discharged home in stable condition with outpt f/u. Discharge diagnosis: Diabetic hyperosmolar non-ketotic state -BG on admission 801 Insulin-dependent diabetes with hyperglycemia and frequent hypoglycemic episode -Poorly controlled -Hgb A1c 11.9 (04/13/19) -BG on admission 801 -Continue sliding scale insulin coverage -Hold long-acting insulin to prevent hypoglycemic episodes Hypoglycemia -has history of very labile blood glucose -We will hold long-acting insulin Nausea vomiting -Due to gastroparesis, continue on Reglan and Protonix -No acute findings on CT abdomen pelvis Hyponatremia -Na on admission 123 -Slowly corrected with IV fluid Hypotension -History of chronic hypotension -Started on midodrine Hypokalemia, severe - K was 2.9, repleted Hypomagnesemia/hypophosphatemia -Repleted BRANDEE, likely vasomotor nephropathy, improved -Hx CKD2 -Cr was on admission 1.7 (trending up from 1.2 on 04/18/19) -Improved with IV fluid History of seizures; Do not drive - Seizure precautions, continue antiepileptic medication History of [place]'s disease: cont home meds Moderate PCM, counseled for proper diet DVT PPX -on Heparin Disposition: Home with home health Physical exam: GENERAL: well-developed and well-nourished young white female lying on bed appeared to be in no discomfort. HEENT: Normocephalic. Atraumatic. No conjunctival congestion or icterus. Patient has moist mucous membranes. NECK: Supple. Trachea midline. CHEST/LUNGS: Clear to auscultated bilaterally, breathing nonlabored. No wheezes crackles or rhonchi. HEART/CARDIOVASCULAR: Regular in rate and rhythm. S1 and S2 positive. ABDOMEN: Abdomen is soft, nontender. Patient has normal bowel sounds. SKIN: There is no rash. Warm and dry. NEURO: No focal motor deficit. Follows command. MUSCULOSKELETAL: No joint effusion or tenderness. EXTRIMITY: No edema, no cyanosis or clubbing. PSYCH: Cooperative. Disposition: [id number] HOME UNDER HOME [facility] Time spent for discharge: 34 minutes Core Measure Documentation - Palliative Care Palliative Care/ Comfort Measures: Not Applicable - Core Measures Any of the following diagnoses?: none Exam - Constitutional Vitals: Temp Pulse Resp BP Pulse Ox 97.8 F 59 L 15 109/75 100 09/19/19 11:30 09/19/19 11:30 09/19/19 11:30 09/19/19 11:30 09/19/19 11:30 Plan Activity: advance as tolerated Weight Bearing Status: Weight Bear as Tolerated Diet: diabetic Special Instructions: record daily BP diary Follow up with: PRIMARY CARE, [Primary Care Provider] - 3-5 Days Prescriptions: Potassium Chloride [K-Dur] 40 meq PO QDAY #3 tablet Pantoprazole [Protonix] 40 mg PO QDAY #30 tablet
[2019-09-19] MEDS ORDERED: NEOMY 3.5 MG/BACIT 400 UNITS/POLY B 5000 UNITS/GM OINT PACKET TP ONE (17:51)
[2019-09-19] MEDS: HYDROCORTISONE 10 MG TAB PO SCH (18:49)
== END 2019-09-19 21:00 | disposition home health service (06) | DRG 637 ==
LOC: ED 00:42 → CC1 06:30 → 3A 12:52
PROVIDERS: ADMIT Internal Medicine Geriatric Medicine; ATTEND Internal Medicine
DX: E11.00 Type 2 diabetes mellitus with hyperosmolarity without nonketotic hyperglycemic-hyperosmolar coma (NKHHC) (principal); N17.0 Acute kidney failure with tubular necrosis; E87.1 Hypo-osmolality and hyponatremia; E27.1 Primary adrenocortical insufficiency; D64.9 Anemia, unspecified; I95.9 Hypotension, unspecified; E87.6 Hypokalemia; E11.65 Type 2 diabetes mellitus with hyperglycemia; E03.9 Hypothyroidism, unspecified; F32.9 Major depressive disorder, single episode, unspecified; E11.22 Type 2 diabetes mellitus with diabetic chronic kidney disease; I12.9 Hypertensive chronic kidney disease with stage 1 through stage 4 chronic kidney disease, or unspecified chronic kidney disease; N18.2 Chronic kidney disease, stage 2 (mild); G40.909 Epilepsy, unspecified, not intractable, without status epilepticus; E83.42 Hypomagnesemia; E83.39 Other disorders of phosphorus metabolism; E16.2 Hypoglycemia, unspecified; Z88.0 Allergy status to penicillin; Z88.9 Allergy status to unspecified drugs, medicaments and biological substances; Z88.1 Allergy status to other antibiotic agents; Z88.8 Allergy status to other drugs, medicaments and biological substances; Z90.49 Acquired absence of other specified parts of digestive tract; Z90.89 Acquired absence of other organs; Z79.4 Long term (current) use of insulin
CPT/HCPCS: 36415; 71045; 74176; 80048; 80053; 81025; 82947; 82962; 83735; 84100; 85007; 85025; 85610; 87116; 96365; 96367; 96375; G0378; A6250; J1642; J1815; J2405; J3475; J7030